=== PATIENT | female | born 1960 | race Hispanic/Latino ===

== ENCOUNTER 2018-06-24 10:36 | Inpatient (IN) | payer OTHER, SELFPAY ==
[2018-06-24] MEDS ORDERED: NACL 0.9% 1000 ML 1,000 ML IV ONE ×2 (10:51→13:10)
[2018-06-24] MEDS ORDERED: ZOFRAN IV ONE (10:51)
[2018-06-24] MEDS ORDERED: MORPHINE IV ONE (10:51)
[2018-06-24] MEDS ORDERED: TYLENOL PO ONE (10:59)
--- NOTE | 2018-06-24 11:11 | Emergency Department Report ---
HPI - General Chief Complaint: Abdominal Pain Time Seen by Provider: 06/24/18 10:51 - HPI HPI: 58-year-old female presents to the emergency department with a complaint of a one-week history of generalized abdominal pain. It has gotten progressively worse. She has a small amount of diarrhea but otherwise denies any nausea, vomiting, dysuria, vaginal bleeding or discharge. She has noticed a small amount of hematuria intermittently. She has a past medical history of kidney stones but says that this does not feel consistent with that. She has not taken anything for her symptoms prior to presentation. No recent travel or sick contacts at home. She does not have a primary care physician. She is a tobacco smoker but denies any illicit drug use. ED Past Medical Hx - Past Medical History Previous Medical History?: No - Surgical History Past Surgical History?: No - Social History Smoking Status: Current Every Day Smoker Substance Use Type: None ED Review of Systems ROS: Stated complaint: ABD PAIN/EXTREME Other details as noted in HPI Comment: All other systems reviewed and negative Constitutional: denies: chills, fever Eyes: denies: eye pain, vision change ENT: denies: ear pain, throat pain Respiratory: denies: cough, shortness of breath Cardiovascular: denies: chest pain, palpitations Gastrointestinal: abdominal pain, diarrhea. denies: vomiting Genitourinary: hematuria. denies: dysuria, discharge Musculoskeletal: denies: back pain, arthralgia Skin: denies: rash, lesions Neurological: denies: headache, weakness Physical Exam - Physical Exam Vital Signs: Vital Signs 06/24/18 06/24/18 10:41 11:00 Temperature 97.8 F Pulse Rate 140 H Respiratory 20 23 Rate Blood Pressure 145/118 O2 Sat by Pulse 97 Oximetry Physical Exam: GENERAL: The patient is well-developed well-nourished. HENT: Normocephalic. Atraumatic. Patient has moist mucous membranes. EYES: Extraocular motions are intact. Pupils equal reactive to light bilaterally. NECK: Supple. Trachea is midline. CHEST/LUNGS: Mild bronchospasm. No tachypnea or accessory muscle use. There is no respiratory distress noted. HEART/CARDIOVASCULAR: Regular. There is moderate to severe tachycardia. There is no murmur. ABDOMEN: Abdomen is soft. Generalized tenderness to palpation of the abdomen with lower greater than upper. No guarding. Patient has normal bowel sounds. There is no abdominal distention. SKIN: Skin is warm and dry. NEURO: The patient is awake, alert, and oriented. The patient is cooperative. The patient has no focal neurologic deficits. The patient has normal speech. MUSCULOSKELETAL: There is no tenderness or deformity. There is no evidence of acute injury. ED Course Vital Signs 06/24/18 06/24/18 10:41 11:00 Temperature 97.8 F Pulse Rate 140 H Respiratory 20 23 Rate Blood Pressure 145/118 O2 Sat by Pulse 97 Oximetry ED Medical Decision Making - Lab Data Result diagrams: 06/24/18 11:19 06/24/18 11:19 - Radiology Data Radiology results: report reviewed PROCEDURE: CT ABDOMEN PELVIS W CON TECHNIQUE: Computerized axial tomography of the abdomen and pelvis was performed after the IV injection of iodinated nonionic contrast. Coronal and sagittal reconstructed imaging provided. HISTORY: Abd pain COMPARISONS: None currently available. FINDINGS: Abdomen: Lung bases and images of the heart are grossly unremarkable. Liver: Decreased heterogeneous attenuation may represent hepatocellular disease, fatty infiltration, or cirrhosis. No suspicious lesion. Gallbladder: Layering density may represent stones and/or sludge. Gallbladder wall is not thickened. Common bile duct does not appear prominent on CT. Adrenals: Indeterminate nodular hyperplasia of the left adrenal identified. Right adrenal gland is unremarkable. Kidneys: In the left kidney, subcentimeter hypodensity is too small to ac curately characterize but statistically probably represents a cyst. Symmetrical cortical enhancement. No hydronephrosis. Spleen and pancreas are unremarkable. No aneurysm. No dissection. Moderate atherosclerotic disease. IVC is unremarkable. There is no periaortic or retroperitoneal adenopathy or mass. Diffuse small bowel and large bowel wall thickening with multiple air-fluid levels. Moderate distention of the proximal small bowel loops with air-fluid levels. Straightening of the mesentery identified.. Prominent mesenteric lymph nodes noted. Small pockets of free air noted. A transition point is not clearly identified. More notable pockets of free air around the sigmoid colon on series 2:143. Sigmoid diverticulosis noted. Trace free fluid in the abdomen. There may be some mild wall thickening of the stomach. Pelvis: Small to moderate amount of free fluid in the pelvis may be partially organized. No distinct rim enhancement. Small pockets of gas also noted. Uterus: Limited images are unremarkable. Bladder: Unremarkable. There is no pelvic mass or adenopathy. Inguinal regions are unremarkable. Bones: No suspicious osseous lesions on this limited examination of the skeleton. Metastatic disease better evaluated with bone scan. Degenerative changes are in the spine. IMPRESSION: * Suspect diffuse moderate to severe enterocolitis with multiple air-fluid levels. Possible small bowel obstruction or high-grade incomplete obstruction. Transition point is not clearly identified but suspected in the pelvis. * Small pockets of free air suggests perforation which could be related to the sigmoid colon which demonstrates diverticulosis/diverticulitis. * Small amount of free fluid in the abdomen. Small to moderate fluid in the pelvis particularly around the sigmoid colon may represent developing abscesses. * Fatty liver. * Gallbladder with stones and/or sludge. No CT evidence for cholecystitis. * Indeterminate nodular hyperplasia of the left adrenal gland. * Probable subcentimeter left renal cyst. * No obstructing right renal stone. - Medical Decision Making This patient presents with progressively worsening one-week history of abdominal pain. Labs show leukocytosis of 19,000. The patient has a mild low-grade fever but has moderate to severe tachycardia. She was given IV fluid resuscitation, Zofran, pain medication. CT of the abdomen and pelvis with IV contrast was done that shows concern for perforated viscus with some free air, a high-grade incomplete to complete bowel obstruction, and severe diffuse enterocolitis. The general surgeon on-call was contacted, Dr Wilcox, who is taking the patient to the operating room for an exploratory laparotomy. Patient will be admitted to the hospital by the admitting hospitalist, Dr. Braun. - Differential Diagnosis bowel obstruction, colitis, nephrolithiasis, pyelonephritis Critical Care Time: Yes Critical care time in (mins) excluding proc time.: 35 Critical care attestation.: If time is entered above; I have spent that time in minutes in the direct care of this critically ill patient, excluding procedure time. Critical care time was spent on this patient and doing her initial evaluation, multiple re- evaluations, ordering an interpretation of labs and imaging, discussion with the general surgeon. Critical Care Time: 35 minutes ED Disposition Clinical Impression: Perforated viscus Bowel obstruction Qualifiers: Intestinal obstruction type: unspecified Intestinal obstruction extent: unspecified extent Qualified Code(s): K56.609 - Unspecified intestinal obstruction, unspecified as to partial versus complete obstruction Leukocytosis Qualifiers: Leukocytosis type: unspecified Qualified Code(s): D72.829 - Elevated white blood cell count, unspecified Disposition: DC-09 OP ADMIT IP TO THIS HOSP Is pt being admited?: Yes Condition: Serious Time of Disposition: 15:25
[2018-06-24 11:31] LABS: Hematocrit 37.2 % (30.3-42.9); Mean Corpuscular HGB Conc 35 % (30-34); Mean Corpuscular Volume 89 fl (79-97); Platelet Count 457 K/mm3 (140-440); Red Cell Distribution Width 14.6 % (13.2-15.2)
[2018-06-24 11:48] LABS: Alanine Aminotransferase 31 units/L (7-56); BUN/Creatinine Ratio 30; Bilirubin,Direct 1.5 mg/dL (0-0.2); Blood Urea Nitrogen 12 mg/dL (7-17); Calcium 8.8 mg/dL (8.4-10.2); Hemolysis Index 6
[2018-06-24 11:51] LABS: INR 1.19 (0.87-1.13)
[2018-06-24 11:52] LABS: Partial Thromboplastin Time 31.8 Sec. (24.2-36.6)
[2018-06-24] MEDS ORDERED: K-DUR PO ONE (12:07)
[2018-06-24 13:18] LABS: Bacteria,Urine 1+ /HPF (Negative); Bilirubin,Urine NEG (Negative); Blood,Urine NEG (Negative); Color,Urine Yellow (Yellow)
[2018-06-24] MEDS ORDERED: ZOSYN/NS 4.5GM/100ML 4.5 GM/100 ML VIAL IV ONE ×2 (13:52→14:47)
[2018-06-24] MEDS ORDERED: FLAGYL 500 MG/100 ML 500 MG/100 ML BAG IV ONE (13:53)
--- NOTE | 2018-06-24 13:58 | Cat Scan Report ---
PROCEDURE: CT ABDOMEN PELVIS W CON TECHNIQUE: Computerized axial tomography of the abdomen and pelvis was performed after the IV injecti on of iodinated nonionic contrast. Coronal and sagittal reconstructed imaging provided. HISTORY: Abd pain COMPARISONS: None currently available. FINDINGS: Abdomen: Lung bases and images of the heart are grossly unremarkable. Liver: Decreased heterogeneous attenuation may represent hepatocellular disease, fatty infiltration, or cirrhosis. No suspicious lesion. Gallbladder: Layering density may represent stones and/or sludge. Gallbladder wall is not thickened. Common bile duct does not appear prominent on CT. Adrenals: Indeterminate nodular hyperplasia of the left adrenal identified. Right adrenal gland is un remarkable. Kidneys: In the left kidney, subcentimeter hypodensity is too small to accurately characterize but st atistically probably represents a cyst. Symmetrical cortical enhancement. No hydronephrosis. Spleen and pancreas are unremarkable. No aneurysm. No dissection. Moderate atherosclerotic disease. IVC is unremarkable. There is no periaortic or retroperitoneal adenopathy or mass. Diffuse small bowel and large bowel wall thickening with multiple air-fluid levels. Moderate distenti on of the proximal small bowel loops with air-fluid levels. Straightening of the mesentery identified .. Prominent mesenteric lymph nodes noted. Small pockets of free air noted. A transition point is not clearly identified. More notable pockets of free air around the sigmoid colon on series 2:143. Sigmoid diverticulosis not ed. Trace free fluid in the abdomen. There may be some mild wall thickening of the stomach. Pelvis: Small to moderate amount of free fluid in the pelvis may be partially organized. No distinct rim enha ncement. Small pockets of gas also noted. Uterus: Limited images are unremarkable. Bladder: Unremarkable. There is no pelvic mass or adenopathy. Inguinal regions are unremarkable. Bones: No suspicious osseous lesions on this limited examination of the skeleton. Metastatic disease better evaluated with bone scan. Degenerative changes are in the spine. IMPRESSION: * Suspect diffuse moderate to severe enterocolitis with multiple air-fluid levels. Possible small palak wel obstruction or high-grade incomplete obstruction. Transition point is not clearly identified but suspected in the pelvis. * Small pockets of free air suggests perforation which could be related to the sigmoid colon which d emonstrates diverticulosis/diverticulitis. * Small amount of free fluid in the abdomen. Small to moderate fluid in the pelvis particularly arou nd the sigmoid colon may represent developing abscesses. * Fatty liver. * Gallbladder with stones and/or sludge. No CT evidence for cholecystitis. * Indeterminate nodular hyperplasia of the left adrenal gland. * Probable subcentimeter left renal cyst. * No obstructing right renal stone. * 06/24/2018 at PT: I, Gabriel Pablo MD, discussed the findings over the phone with Dr. Lu. This document is electronically signed by Gabriel Pablo MD., Jun 24 2018 01:55:35 PM ET
--- NOTE | 2018-06-24 13:59 | History and Physical Report ---
History of Present Illness Chief complaint: My stomach hurts History of present illness: 58 YO Female with Nicotine Dependence, Severe Malnutrition present to ED for evaluation. Pt states that she has experienced pain in her abdomen over the past 1 week with progressively worsening symptoms over the same time frame. Pt states that her abdominal pain is 10/10, generalized, nonradiating, constant, worsened with movement, relieved somewhat with nonmovement. Pt denies NVD, ingestion of food/water from new or different sources, BRBPR, skin rash, or recent ill contacts. Pt transported to [facility] via private vehicle. Pt seen and evaluated in ED and found to have PSBO complicated by Bowel Perforation, SIRS, and severe malnutrition. Pt admitted to surgical floor. Surgery team consulted in ED. Pt taken to OR urgently. No prior admission for review. No medication listed for reconciliation at time of admission. Past History Past Medical History: other (malnutrition) Past Surgical History: No surgical history, Other (reviewed) Social history: single, smoking Family history: no significant family history (reviewed) Medications and Allergies Allergies Allergy/AdvReac Type Severity Reaction Status Date / Time No Known Allergies Allergy Unverified 06/24/18 10:41 Active Meds: Active Medications Sodium Chloride (Nacl 0.9% 1000 Ml) 1,000 mls @ 999 mls/hr IV BOLUS ONE Stop: 06/24/18 14:10 Last Admin: 06/24/18 13:30 Dose: 999 mls/hr Documented by: Piperacillin Sod/Tazobactam Sod (Zosyn/Ns 4.5gm/100ml) 4.5 gm in 100 mls @ 200 mls/hr IV ONCE ONE Stop: 06/24/18 14:21 Metronidazole (Flagyl 500 Mg/100 Ml) 500 mg in 100 mls @ 200 mls/hr IV ONCE ONE; Protocol Stop: 06/24/18 14:22 Review of Systems Constitutional: no weight loss, no weight gain, no fever Ears, nose, mouth and throat: no ear pain, no ear discharge, no nose pain, no nasal congestion Breasts: no change in shape, no swelling, no mass Cardiovascular: no chest pain, no orthopnea, no palpitations, no rapid/irregular heart beat, no syncope Respiratory: no cough, no cough with sputum, no excessive sputum, no hemoptysis, no shortness of breath, no dyspnea on exertion Gastrointestinal: abdominal pain, no diarrhea, no constipation, no change in bowel habits, no hematemesis, no BRBPR, no hematochezia, no loss of appetite, no early satiety Genitourinary Female: no pelvic pain, no flank pain, no menorrhagia, no dysuria Rectal: no pain, no bleeding Musculoskeletal: no neck stiffness, no neck pain, no shooting arm pain, no arm numbness/tingling, no shooting leg pain Integumentary: no rash, no pruritis, no redness, no sores, no wounds Neurological: no transient paralysis, no paralysis, no weakness, no parathesias, no numbness, no tingling Psychiatric: no anxiety, no memory loss, no change in sleep habits, no sleep disturbances, no hypersomnia, no change in appetite, no change in libido Endocrine: no cold intolerance, no heat intolerance, no polyphagia, no excessive thirst, no polyuria, no nocturia, no other Hematologic/Lymphatic: no easy bruising, no easy bleeding, no lymphedema Allergic/Immunologic: no urticaria, no allergic rhinitis, no wheezing, no persistent infections, no anaphylaxis Exam - Constitutional Vitals: Temp Pulse Resp BP Pulse Ox 100.2 F H 116 H 26 H 136/70 94 06/24/18 10:50 06/24/18 12:15 06/24/18 12:15 06/24/18 12:15 06/24/18 12:15 General appearance: Present: mild distress - EENT Eyes: Present: PERRL ENT: hearing intact, clear oral mucosa - Neck Neck: Present: supple, normal ROM - Respiratory Respiratory effort: normal Respiratory: bilateral: CTA - Cardiovascular Heart Sounds: Present: S1 & S2. Absent: rub, click - Extremities Extremities: pulses symmetrical, No edema Peripheral Pulses: within normal limits - Abdominal General gastrointestinal: Present: soft, tender, non-distended, normal bowel sounds. Absent: hepatomegaly, splenomegaly, mass Female genitourinary: Present: normal - Integumentary Integumentary: Present: clear, warm, dry - Musculoskeletal Musculoskeletal: gait normal, strength equal bilaterally - Psychiatric Psychiatric: appropriate mood/affect, intact judgment & insight - Neurologic Neurologic: CNII-XII intact, moves all extremities Results - Labs CBC & Chem 7: 06/24/18 11:19 06/24/18 19:47 Labs: Abnormal lab results 06/24/18 06/24/18 06/24/18 Range/Units 11:18 11:19 11:19 WBC 19.0 H (4.5-11.0) K/mm3 MCHC 35 H (30-34) % Plt Count 457 H (140-440) K/mm3 PT 15.9 H (12.2-14.9) Sec. INR 1.19 H (0.87-1.13) Sodium 136 L (137-145) mmol/L Potassium 2.8 L* (3.6-5.0) mmol/L Chloride 96.7 L (98-107) mmol/L Creatinine 0.4 L (0.7-1.2) mg/dL Glucose 146 H (65-100) mg/dL Total Bilirubin 1.90 H (0.1-1.2) mg/dL Direct Bilirubin 1.5 H (0-0.2) mg/dL Alkaline Phosphatase 264 H (35-129) units/L Albumin 3.0 L (3.9-5) g/dL Lipase 8 L (13-60) units/L Ur Specific [place] (1.003-1.030) 06/24/18 Range/Units 13:00 WBC (4.5-11.0) K/mm3 MCHC (30-34) % Plt Count (140-440) K/mm3 PT (12.2-14.9) Sec. INR (0.87-1.13) Sodium (137-145) mmol/L Potassium (3.6-5.0) mmol/L Chloride (98-107) mmol/L Creatinine (0.7-1.2) mg/dL Glucose (65-100) mg/dL Total Bilirubin (0.1-1.2) mg/dL Direct Bilirubin (0-0.2) mg/dL Alkaline Phosphatase (35-129) units/L Albumin (3.9-5) g/dL Lipase (13-60) units/L Ur Specific [place] > 1.059 H (1.003-1.030) Assessment and Plan dep - Patient Problems (1) SIRS (systemic inflammatory response syndrome) Current Visit: Yes Status: Acute Plan to address problem: IV antibiotic therapy, CBC, CMP, CT Abdomen/Pelvis, Chest x ray, urinalysis, (2) Nicotine dependence unspecified, with withdrawal Current Visit: Yes Status: Acute Qualifiers: Nicotine product type: cigarettes Qualified Code(s): F17.213 - Nicotine dependence, cigarettes, with withdrawal Plan to address problem: Smoking cessation counseling, supportive care. (3) Hypokalemia Current Visit: Yes Status: Acute Plan to address problem: repleted, in ED, repeat bmp. (4) Unspecified severe protein-calorie malnutrition Current Visit: Yes Status: Acute Plan to address problem: Encourage increased protein intake, supportive care, dietary supplementation (5) Bowel obstruction Current Visit: Yes Status: Acute Qualifiers: Intestinal obstruction type: other intestinal obstruction Plan to address problem: Surgery consulted in ED, CT Abdomen/Pelvis, serial abdominal exam, surgical intervention. (6) Perforated viscus Current Visit: Yes Status: Acute Plan to address problem: CT ABdomen/Pelvis, Urgent surgical intervention as per surgical team, diet as per surgical team, pain control, supportive care, (7) DVT prophylaxis Current Visit: Yes Status: Acute Plan to address problem: SCD to BLE while in bed, prophylactic heparin
[2018-06-24] MEDS ORDERED: PROVENTIL IH PRN (14:00)
[2018-06-24] MEDS ORDERED: TYLENOL PO PRN (14:00)
[2018-06-24 14:31] LABS: Band Neutrophils # (Manual) 1.5 K/mm3; Basophils % (Manual) 0 % (0.0-1.8); Eosinophils % (Manual) 0 % (0.0-4.3); Total Cells Counted 100
[2018-06-24 14:33] LABS: Platelet Estimate Consistent w Auto; RBC Morphology Normal
--- NOTE | 2018-06-24 14:44 | Anesthesia Consultation ---
Anesthesia Consult and Med Hx Date of service: 06/24/18 - Airway Anesthetic Teeth Evaluation: Poor (brittle, chipped ), Edentulous (uppers) Mallampati Class: Class III - Pulmonary Exam CTA: No (expiratory wheezing, poor air movement) - Cardiac Exam Cardiac Exam: RRR - Pre-Operative Health Status ASA Pre-Surgery Classification: ASA2 Proposed Anesthetic Plan: General - Pre-Anesthesia Comment Pre-Anesthesia Comments: Physical exam remarkable for expiratory wheezing and poor air movement b/L. needs preoperative duoneb treatment that can be given in the ED pending transfer to preop holding. - Pulmonary Hx Smoking: Yes Hx Asthma: No (although suspected pulmonary disease d/t smoking hx.) Hx Respiratory Symptoms: No (see above) SOB: No (see above) COPD: No (see above, 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 ) Home Oxygen Therapy: No Hx Pneumonia: No Hx Sleep Apnea: No - Cardiovascular System Hx Hypertension: Yes (states she is on/off BP meds; currently on none but does not have a PCP ) Hx Coronary Artery Disease: No Hx Heart Murmur: No Hx Peripheral Vascular Disease: No - Central Nervous System Hx Psychiatric Problems: No - Gastrointestinal Hx Gastroesophageal Reflux Disease: No - Hematic Hx Anemia: No - Other Systems Hx Alcohol Use: No Hx Substance Use: No (denies illicit drug use ) - Additional Comments Anesthesia Medical History Comments: 58-year-old female p/t [facility] w/ a complaint of a one-week history of generalized abdominal pain concerning for bowel perforation. Poor medical care and no routine follow-ups with primary care physician. States she has had HTN on/off BP meds but currently does not. Previous stent placement for kidney stones was uneventful.
--- NOTE | 2018-06-24 14:44 | Anesthesia Day of Surgery ---
Anesthesia Day of Surgery - Day of Surgery Patient Examined: Yes Patient H&P Reviewed: Yes (current smoker, history of kidney stones s/p stent placement) Patient is NPO: Yes Beta Blockers: No Cardiac Clearance: No Pulmonary Clearance: No Shahram's Test: N/A
--- NOTE | 2018-06-24 14:48 | Consultation ---
History of Present Illness Consult date: 06/24/18 Reason for consult: abdominal pain Chief complaint: abdominal pain - History of present illness History of present illness: 58 yo F with hx of HTN, tobacco dependence presents with 1 week of gradually wor sening abdominal pain. The pain is sharp and started in the midabdomen and is now diffuse. No alleviating or exacerbating factors. +Chills at home. Temp of 100.2 in ER. Has not been able to pass gas for the past several days and has been having very small BMs, incontinence. States her abdomen has become more distended. +Nausea, no vomiting. She has never had a colonoscopy. Past History Past Medical History: hypertension Past Surgical History: No surgical history Social history: smoking (1/2 ppd). denies: alcohol abuse, prescription drug abuse Family history: no significant family history Medications and Allergies Allergies Allergy/AdvReac Type Severity Reaction Status Date / Time No Known Allergies Allergy Unverified 06/24/18 10:41 Active Meds: Active Medications Acetaminophen (Tylenol) 650 mg PO Q4H PRN PRN Reason: Pain MILD(1-3)/Fever >100.5/LINK Albuterol (Proventil) 2.5 mg IH Q4HRT PRN PRN Reason: Shortness Of Breath Cefepime HCl (Maxipime/Ns 2 Gm/100 Ml) 2 gm in 100 mls @ 200 mls/hr IV Q8H MAURICIO; Protocol Metronidazole (Flagyl 500 Mg/100 Ml) 500 mg in 100 mls @ 100 mls/hr IV Q8H MAURICIO; Protocol Ondansetron HCl (Zofran) 4 mg IV Q8H PRN PRN Reason: Nausea And Vomiting Sodium Chloride (Sodium Chloride Flush Syringe 10 Ml) 10 ml IV BID MAURICIO Sodium Chloride (Sodium Chloride Flush Syringe 10 Ml) 10 ml IV PRN PRN PRN Reason: LINE FLUSH Review of Systems All systems: negative (10 PT ros PERFORMED and negative except for that listed in HPI) Exam Vital Signs Temp Pulse Resp BP Pulse Ox 97.8 F 140 H 20 145/118 97 06/24/18 10:41 06/24/18 10:41 06/24/18 10:41 06/24/18 10:41 06/24/18 10:41 Narrative exam: Gen: AAOx3. mild distress due to pain ENT: no scleral icterus or conjunctival pallor CV: s1, s2+. tachy resp: even and unlabored Abd: Firm, distended, diffuse TTP. + rebound. no guarding Ext: no c/c/e Results - Labs 06/24/18 11:19 06/24/18 11:19 Abnormal lab results 06/24/18 06/24/18 06/24/18 Range/Units 11:18 11:19 11:19 WBC 19.0 H (4.5-11.0) K/mm3 MCHC 35 H (30-34) % Plt Count 457 H (140-440) K/mm3 Seg Neuts % (Manual) 88.0 H (40.0-70.0) % Lymphocytes % (Manual) 2.0 L (13.4-35.0) % Seg Neutrophils # Man 16.7 H (1.8-7.7) K/mm3 Lymphocytes # (Manual) 0.4 L (1.2-5.4) K/mm3 PT 15.9 H (12.2-14.9) Sec. INR 1.19 H (0.87-1.13) Sodium 136 L (137-145) mmol/L Potassium 2.8 L* (3.6-5.0) mmol/L Chloride 96.7 L (98-107) mmol/L Creatinine 0.4 L (0.7-1.2) mg/dL Glucose 146 H (65-100) mg/dL Total Bilirubin 1.90 H (0.1-1.2) mg/dL Direct Bilirubin 1.5 H (0-0.2) mg/dL Alkaline Phosphatase 264 H (35-129) units/L Albumin 3.0 L (3.9-5) g/dL Lipase 8 L (13-60) units/L Ur Specific [place] (1.003-1.030) 06/24/18 Range/Units 13:00 WBC (4.5-11.0) K/mm3 MCHC (30-34) % Plt Count (140-440) K/mm3 Seg Neuts % (Manual) (40.0-70.0) % Lymphocytes % (Manual) (13.4-35.0) % Seg Neutrophils # Man (1.8-7.7) K/mm3 Lymphocytes # (Manual) (1.2-5.4) K/mm3 PT (12.2-14.9) Sec. INR (0.87-1.13) Sodium (137-145) mmol/L Potassium (3.6-5.0) mmol/L Chloride (98-107) mmol/L Creatinine (0.7-1.2) mg/dL Glucose (65-100) mg/dL Total Bilirubin (0.1-1.2) mg/dL Direct Bilirubin (0-0.2) mg/dL Alkaline Phosphatase (35-129) units/L Albumin (3.9-5) g/dL Lipase (13-60) units/L Ur Specific [place] > 1.059 H (1.003-1.030) Diabetes panel 06/24/18 Range/Units 11:19 Sodium 136 L (137-145) mmol/L Potassium 2.8 L* (3.6-5.0) mmol/L Chloride 96.7 L (98-107) mmol/L Carbon Dioxide 25 (22-30) mmol/L BUN 12 (7-17) mg/dL Creatinine 0.4 L (0.7-1.2) mg/dL Glucose 146 H (65-100) mg/dL Calcium 8.8 (8.4-10.2) mg/dL AST 20 (5-40) units/L ALT 31 (7-56) units/L Alkaline Phosphatase 264 H (35-129) units/L Total Protein 6.6 (6.3-8.2) g/dL Albumin 3.0 L (3.9-5) g/dL Calcium panel 06/24/18 Range/Units 11:19 Calcium 8.8 (8.4-10.2) mg/dL Albumin 3.0 L (3.9-5) g/dL Pituitary panel 06/24/18 Range/Units 11:19 Sodium 136 L (137-145) mmol/L Potassium 2.8 L* (3.6-5.0) mmol/L Chloride 96.7 L (98-107) mmol/L Carbon Dioxide 25 (22-30) mmol/L BUN 12 (7-17) mg/dL Creatinine 0.4 L (0.7-1.2) mg/dL Glucose 146 H (65-100) mg/dL Calcium 8.8 (8.4-10.2) mg/dL Adrenal panel 05/18/19 Range/Units 11:19 Sodium 136 L (137-145) mmol/L Potassium 2.8 L* (3.6-5.0) mmol/L Chloride 96.7 L (98-107) mmol/L Carbon Dioxide 25 (22-30) mmol/L BUN 12 (7-17) mg/dL Creatinine 0.4 L (0.7-1.2) mg/dL Glucose 146 H (65-100) mg/dL Calcium 8.8 (8.4-10.2) mg/dL Total Bilirubin 1.90 H (0.1-1.2) mg/dL AST 20 (5-40) units/L ALT 31 (7-56) units/L Alkaline Phosphatase 264 H (35-129) units/L Total Protein 6.6 (6.3-8.2) g/dL Albumin 3.0 L (3.9-5) g/dL - Imaging CT scan - abdomen: report reviewed, image reviewed CT scan - pelvis: report reviewed, image reviewed Assessment and Plan 58 yo F with 1. pneumoperitoneum, 2. SBO 3. perforated viscus 4. hypokalemia 5. sepsis due to #3 Plan: 1. NPO 2. IVF 3. IV abx 4. prn pain control 5. hypokalemia treated in ER Patient peritoneal, tachycardic, with leukocytosis and pneumoperitoneum on CT scan A/P. Recommend exploratory laparotomy. I discussed surgery, risks, benefits, and alternatives with the patient. All questions answered. Explained to the patient that she may have a perforation in her sigmoid colon which could require a colostomy. Family member at bedside Thank you, please call with questions.
[2018-06-24] MEDS ORDERED: DUONEB *Not for PRN Use IH ONE ×2 (15:11→15:19)
[2018-06-24] MEDS ORDERED: SUBLIMAZE IV PRN (15:23)
[2018-06-24] MEDS ORDERED: REGLAN IV PRN (15:23)
[2018-06-24] MEDS ORDERED: DILAUDID ONE (15:44)
[2018-06-24] MEDS ORDERED: XYLOCAINE CARDIAC IV ONE (15:44)
[2018-06-24] MEDS ORDERED: QUELICIN ONE (15:44)
[2018-06-24] MEDS ORDERED: ZEMURON IV ONE (15:44)
[2018-06-24] MEDS ORDERED: DIPRIVAN 10 MG/ML IV ONE (15:44)
[2018-06-24] MEDS ORDERED: VERSED ONE (15:59)
[2018-06-24] MEDS ORDERED: NACL 0.9% IR ONE ×2 (15:59)
[2018-06-24] MEDS ORDERED: MAXIPIME/NS 2 GM/100 ML 2 GM/100 ML BAG IV SCH (16:00)
[2018-06-24] MEDS ORDERED: NEO SYNEPHRINE/NS Syringe(OR USE) IV ONE (16:25)
[2018-06-24] MEDS ORDERED: ZOFRAN ONE (17:43)
[2018-06-24] MEDS ORDERED: ROBINUL ONE (17:43)
[2018-06-24] MEDS ORDERED: BLOXIVERZ ONE (17:43)
[2018-06-24] MEDS ORDERED: BRIDION IV ONE (17:56)
[2018-06-24] MEDS ORDERED: SUBLIMAZE ONE (18:27)
[2018-06-24] MEDS ORDERED: NARCAN 0.4 MG/1 ML IV PRN ×2 (18:49→18:55)
[2018-06-24] MEDS: DILAUDID IV PRN ×3 (18:55→19:24)
--- NOTE | 2018-06-24 18:55 | Post Operative Note ---
Date of procedure: 06/24/18 Pre-op diagnosis: pneumoperitoneum, perforated viscus Post-op diagnosis: other (Perforated sigmoid colon with purulent peritonitis) Findings: purulent peritonitis, sigmoid diverticulitis with perforation at distal sigmoid colon IVF: 2L LR Uo: 150cc NGT: 100cc Procedure: Exploratory laparotomy, Ezequiel's Anesthesia: GETA Surgeon: OLGA FELDMAN Elevator Repairer Helper: JIMMY DE LUNA Estimated blood loss: other (50cc) Pathology: list (sigmoid colon) Specimen disposition: to lab Condition: stable Disposition: PACU
[2018-06-24] MEDS: MORPHINE PCA 30MG/30ML IV SCH (19:34)
[2018-06-24 20:18] LABS: BUN/Creatinine Ratio 43; Blood Urea Nitrogen 13 mg/dL (7-17); Calcium 7.4 mg/dL (8.4-10.2); Hemolysis Index 2
[2018-06-24] MEDS: D5W/NS W/KCL 20MEQ 20 MEQ/1,000 ML BAG IV SCH (20:57)
[2018-06-24] MEDS: LEVAQUIN 500MG/100ML 500 MG/100 ML BAG IV SCH (20:59)
[2018-06-24] MEDS: SODIUM CHLORIDE FLUSH SYRINGE 10 ML IV SCH (21:01)
[2018-06-24] MEDS: FLAGYL 500 MG/100 ML 500 MG/100 ML BAG IV SCH (21:01)
[2018-06-25] MEDS: FLAGYL 500 MG/100 ML 500 MG/100 ML BAG IV SCH ×3 (05:48→21:58)
[2018-06-25 07:29] LABS: Hematocrit 34.5 % (30.3-42.9); Mean Corpuscular HGB Conc 35 % (30-34); Mean Corpuscular Volume 90 fl (79-97); Platelet Count 481 K/mm3 (140-440); Red Blood Count 3.85 M/mm3 (3.65-5.03); Red Cell Distribution Width 14.8 % (13.2-15.2)
[2018-06-25 07:57] LABS: Alanine Aminotransferase 21 units/L (7-56); Albumin 2.1 g/dL (3.9-5); BUN/Creatinine Ratio 40; Blood Urea Nitrogen 16 mg/dL (7-17); Calcium 7.7 mg/dL (8.4-10.2); Hemolysis Index 3
[2018-06-25] MEDS: HABITROL TD SCH ×2 (08:35→10:00)
[2018-06-25] MEDS: D5W/NS W/KCL 20MEQ 20 MEQ/1,000 ML BAG IV SCH ×2 (08:37→16:01)
[2018-06-25 11:15] LABS: Band Neutrophils # (Manual) 0.9 K/mm3; Basophils % (Manual) 0 % (0.0-1.8); Eosinophils % (Manual) 0 % (0.0-4.3); Total Cells Counted 100
[2018-06-25 11:17] LABS: Platelet Estimate Consistent w Auto
[2018-06-25 11:18] LABS: Target Cells 3+
[2018-06-25] MEDS: KCL 10MEQ/100ML 10 MEQ/100 ML BAG IV SCH (12:15)
[2018-06-25] MEDS: SODIUM CHLORIDE FLUSH SYRINGE 10 ML IV SCH ×2 (12:16→21:58)
[2018-06-25] MEDS ORDERED: CHLORASEPTIC MM PRN (13:51)
[2018-06-25] MEDS ORDERED: MAGNESIUM SULFATE 1 GM in NACL 0.9% 50 ML IV ONE (14:00)
[2018-06-25] MEDS ORDERED: KCL 40 MEQ in NACL 0.45% 500 ML IV SCH (14:00)
[2018-06-25] MEDS ORDERED: MAGNESIUM SULFATE 1 GM in WATER FOR INJ (PF) 23 ML IV ONE (14:00)
--- NOTE | 2018-06-25 14:00 | Progress Note ---
Assessment and Plan 58 yo F s/p exploratory laparotomy, peritoneal lavage, landon's procedure POD 1 Plan: 1. NPO 2. IVF 3. replace K 4. OOB/ambulate 5. IS 6. DVT/GI ppx 7. SENIOR EXAMINER for pain management 8. [place] drain 9. void trial - pizano removed this am 10. await bowel function Thank you, please call with questions. Subjective Date of service: 06/25/18 Narrative: Pt seen and examined. No acute complaints. Pain is well controlled and patient states she feels much better. No f/c. No cp, sob. c/o pain in her throat. Objective Vital Signs - 12hr 06/25/18 06/25/18 06/25/18 02:59 04:13 07:34 Temperature 98.5 F Pulse Rate 107 H Respiratory 20 20 18 Rate Respiratory Rate [Abdomen] Blood Pressure 127/64 Blood Pressure [Left] O2 Sat by Pulse 93 Oximetry 06/25/18 06/25/18 06/25/18 07:47 09:23 09:34 Temperature 98.9 F Pulse Rate 101 H Respiratory 16 17 Rate Respiratory 17 Rate [Abdomen] Blood Pressure Blood Pressure 134/72 [Left] O2 Sat by Pulse 95 96 Oximetry 06/25/18 06/25/18 06/25/18 12:25 12:31 12:38 Temperature 98.8 F Pulse Rate 77 114 H Respiratory 15 20 Rate Respiratory Rate [Abdomen] Blood Pressure 110/68 Blood Pressure 140/73 [Left] O2 Sat by Pulse 93 100 95 Oximetry - General physical appearance Narrative Exam: Gen: AAOx3. NAD ENT: NGT with dark brown output CV: S1, s2+ resp; even and unlabored. 500cc on IS Abd: soft, mildly distended, NT. Dressing c/d/i. [place] drain serous. Ostomy pink with serous fluid in bag. No air or stool Ext: no c/c/e - Labs 06/25/18 06:55 06/25/18 06:55 Diabetes panel 06/24/18 06/25/18 Range/Units 19:47 06:55 Sodium 139 144 (137-145) mmol/L Potassium 3.5 L D 3.5 L (3.6-5.0) mmol/L Chloride 105.4 108.3 H (98-107) mmol/L Carbon Dioxide 21 L 23 (22-30) mmol/L BUN 13 16 (7-17) mg/dL Creatinine 0.3 L 0.4 L (0.7-1.2) mg/dL Glucose 166 H 159 H (65-100) mg/dL Calcium 7.4 L D 7.7 L (8.4-10.2) mg/dL AST 16 (5-40) units/L ALT 21 (7-56) units/L Alkaline Phosphatase 152 H (35-129) units/L Total Protein 5.3 L (6.3-8.2) g/dL Albumin 2.1 L (3.9-5) g/dL Calcium panel 06/24/18 06/25/18 Range/Units 19:47 06:55 Calcium 7.4 L D 7.7 L (8.4-10.2) mg/dL Albumin 2.1 L (3.9-5) g/dL Pituitary panel 06/24/18 06/25/18 Range/Units 19:47 06:55 Sodium 139 144 (137-145) mmol/L Potassium 3.5 L D 3.5 L (3.6-5.0) mmol/L Chloride 105.4 108.3 H (98-107) mmol/L Carbon Dioxide 21 L 23 (22-30) mmol/L BUN 13 16 (7-17) mg/dL Creatinine 0.3 L 0.4 L (0.7-1.2) mg/dL Glucose 166 H 159 H (65-100) mg/dL Calcium 7.4 L D 7.7 L (8.4-10.2) mg/dL Adrenal panel 06/24/18 06/25/18 Range/Units 19:47 06:55 Sodium 139 144 (137-145) mmol/L Potassium 3.5 L D 3.5 L (3.6-5.0) mmol/L Chloride 105.4 108.3 H (98-107) mmol/L Carbon Dioxide 21 L 23 (22-30) mmol/L BUN 13 16 (7-17) mg/dL Creatinine 0.3 L 0.4 L (0.7-1.2) mg/dL Glucose 166 H 159 H (65-100) mg/dL Calcium 7.4 L D 7.7 L (8.4-10.2) mg/dL Total Bilirubin 0.90 (0.1-1.2) mg/dL AST 16 (5-40) units/L ALT 21 (7-56) units/L Alkaline Phosphatase 152 H (35-129) units/L Total Protein 5.3 L (6.3-8.2) g/dL Albumin 2.1 L (3.9-5) g/dL
--- NOTE | 2018-06-25 14:16 | Progress Note ---
Assessment and Plan Assessment and plan: 58 year old woman who presented to the hospital with generalized abdominal pain. Past medical history includes tobacco abuse, current everyday smoker CT abdomen pelvis showed [id number] enterocolitis with multiple air fluid levels. High grade incomplete small bowel obstruction, pockets of free air which suggested perforation Diagnosis Severe enterocolitis Purulent peritonitis Sigmoid diverticulitis with perforation of distal sigmoid colon hypokalemia, severe hyponatremia Moderate malnutrition Nicotine dependence Sepsis Plan Status post ex lap, peritoneal lavage, Posey's procedure on 06/24 Electrolytes have been replaced patient was counseled on preventive health Management for over 17 minutes DVT prophylaxis lovenox History Interval history: Review of systems Constitutional: No fevers, no malaise, no joint pains CVS: No chest pain, no orthopnea, no pedal edema GI: No abdominal pain, no diarrhea, no vomiting, no constipation Respiratory: No shortness of breath, no wheezing, no coughing Hospitalist Physical - Physical exam Narrative exam: General.: Appears well, no distress, nontoxic HEENT: Moist mucous membranes, extraocular muscles intact, no lymphadenopathy Neck: supple Cardiac: S1-S2 heard Lungs: clear to auscultation bilaterally Abdomen: soft , nontender, Extremities: no edema clubbing or cyanosis Skin: no rash or lesions Neurologic: no gross focal deficits Psych: calm, and cooperative - Constitutional Vitals: Temp Pulse Resp BP Pulse Ox 98.8 F 114 H 20 140/73 95 06/25/18 12:38 06/25/18 12:38 06/25/18 12:38 06/25/18 12:38 06/25/18 12:38 General appearance: Present: mild distress Results - Labs CBC & Chem 7: 06/25/18 06:55 06/25/18 06:55 Labs: Laboratory Last Values WBC 18.3 K/mm3 (4.5-11.0) H 06/25/18 06:55 RBC 3.85 M/mm3 (3.65-5.03) 06/25/18 06:55 Hgb 12.0 gm/dl (10.1-14.3) 06/25/18 06:55 Hct 34.5 % (30.3-42.9) 06/25/18 06:55 MCV 90 fl (79-97) 06/25/18 06:55 MCH 31 pg (28-32) 06/25/18 06:55 MCHC 35 % (30-34) H 06/25/18 06:55 RDW 14.8 % (13.2-15.2) 06/25/18 06:55 Plt Count 481 K/mm3 (140-440) H 06/25/18 06:55 Add Manual Diff Complete 06/25/18 06:55 Total Counted 100 06/25/18 06:55 Seg Neutrophils % Mill Worker 06/25/18 06:55 Seg Neuts % (Manual) 88.0 % (40.0-70.0) H 06/25/18 06:55 5.0 % 06/25/18 06:55 4.0 % (13.4-35.0) L 06/25/18 06:55 Reactive Lymphs % (Man) 0 % 06/25/18 06:55 3.0 % (0.0-7.3) 06/25/18 06:55 0 % (0.0-4.3) 06/25/18 06:55 0 % (0.0-1.8) 06/25/18 06:55 0 % 06/25/18 06:55 0 % 06/25/18 06:55 0 % 06/25/18 06:55 0 % 06/25/18 06:55 Nucleated RBC % Not Reportable 06/25/18 06:55 Seg Neutrophils # Man 16.1 K/mm3 (1.8-7.7) H 06/25/18 06:55 Band Neutrophils # 0.9 K/mm3 06/25/18 06:55 0.7 K/mm3 (1.2-5.4) L 06/25/18 06:55 Abs React Lymphs (Man) 0.0 K/mm3 06/25/18 06:55 0.5 K/mm3 (0.0-0.8) 06/25/18 06:55 0.0 K/mm3 (0.0-0.4) 06/25/18 06:55 0.0 K/mm3 (0.0-0.1) 06/25/18 06:55 0.0 K/mm3 06/25/18 06:55 0.0 K/mm3 06/25/18 06:55 0.0 K/mm3 06/25/18 06:55 Blast Cells # 0.0 K/mm3 06/25/18 06:55 WBC Morphology Not Reportable 06/25/18 06:55 Hypersegmented Neuts Not Reportable 06/25/18 06:55 Hyposegmented Neuts Not Reportable 06/25/18 06:55 Hypogranular Neuts Not Reportable 06/25/18 06:55 Not Reportable 06/25/18 06:55 Not Reportable 06/25/18 06:55 Not Reportable 06/25/18 06:55 Not Reportable 06/25/18 06:55 Not Reportable 06/25/18 06:55 Not Reportable 06/25/18 06:55 Consistent w auto 06/25/18 06:55 Not Reportable 06/25/18 06:55 Plt Clumps, EDTA Not Reportable 06/25/18 06:55 Not Reportable 06/25/18 06:55 Not Reportable 06/25/18 06:55 Not Reportable 06/25/18 06:55 Plt Morphology Comment Not Reportable 06/25/18 06:55 RBC Morphology Not Reportable 06/25/18 06:55 Dimorphic RBCs Not Reportable 06/25/18 06:55 Not Reportable 06/25/18 06:55 Not Reportable 06/25/18 06:55 Not Reportable 06/25/18 06:55 Not Reportable 06/25/18 06:55 Not Reportable 06/25/18 06:55 Not Reportable 06/25/18 06:55 Not Reportable 06/25/18 06:55 Not Reportable 06/25/18 06:55 Not Reportable 06/25/18 06:55 3+ 06/25/18 06:55 Not Reportable 06/25/18 06:55 Not Reportable 06/25/18 06:55 Not Reportable 06/25/18 06:55 Not Reportable 06/25/18 06:55 Not Reportable 06/25/18 06:55 Not Reportable 06/25/18 06:55 Not Reportable 06/25/18 06:55 Not Reportable 06/25/18 06:55 Not Reportable 06/25/18 06:55 Acanthocytes (Spur) Not Reportable 06/25/18 06:55 Rouleaux Not Reportable 06/25/18 06:55 Not Reportable 06/25/18 06:55 Not Reportable 06/25/18 06:55 Not Reportable 06/25/18 06:55 Not Reportable 06/25/18 06:55 Hem Pathologist Commnt No 06/25/18 06:55 PT 15.9 Sec. (12.2-14.9) H 06/24/18 11:18 INR 1.19 (0.87-1.13) H 06/24/18 11:18 APTT 31.8 Sec. (24.2-36.6) 06/24/18 11:18 Sodium 144 mmol/L (137-145) 06/25/18 06:55 Potassium 3.5 mmol/L (3.6-5.0) L 06/25/18 06:55 Chloride 108.3 mmol/L (98-107) H 06/25/18 06:55 Carbon Dioxide 23 mmol/L (22-30) 06/25/18 06:55 16 mmol/L 06/25/18 06:55 BUN 16 mg/dL (7-17) 06/25/18 06:55 0.4 mg/dL (0.7-1.2) L 06/25/18 06:55 Estimated GFR > 60 ml/min 06/25/18 06:55 40 % 06/25/18 06:55 Glucose 159 mg/dL (65-100) H 06/25/18 06:55 Calcium 7.7 mg/dL (8.4-10.2) L 06/25/18 06:55 0.90 mg/dL (0.1-1.2) 06/25/18 06:55 1.5 mg/dL (0-0.2) H 06/24/18 11:19 0.4 mg/dL 06/24/18 11:19 AST 16 units/L (5-40) 06/25/18 06:55 ALT 21 units/L (7-56) 06/25/18 06:55 152 units/L (35-129) H 06/25/18 06:55 5.3 g/dL (6.3-8.2) L 06/25/18 06:55 2.1 g/dL (3.9-5) L 06/25/18 06:55 0.7 % 06/25/18 06:55 8 units/L (13-60) L 06/24/18 11:19 Yellow (Yellow) 06/24/18 13:00 Clear (Clear) 06/24/18 13:00 6.0 (5.0-7.0) 06/24/18 13:00 Ur Specific [place] > 1.059 (1.003-1.030) H 06/24/18 13:00 30 mg/dl mg/dL (Negative) 06/24/18 13:00 Neg mg/dL (Negative) 06/24/18 13:00 Neg mg/dL (Negative) 06/24/18 13:00 Neg (Negative) 06/24/18 13:00 Neg (Negative) 06/24/18 13:00 Neg (Negative) 06/24/18 13:00 4.0 mg/dL (<2.0) 06/24/18 13:00 Ur Leukocyte Esterase Neg (Negative) 06/24/18 13:00 2.0 /HPF (0.0-6.0) 06/24/18 13:00 2.0 /HPF (0.0-6.0) 06/24/18 13:00 U Epithel Cells (Auto) 1.0 /HPF (0-13.0) 06/24/18 13:00 1+ /HPF (Negative) 06/24/18 13:00 Active Medications - Current Medications Current Medications: Generic Name Dose Route Start Last Admin Trade Name Freq PRN Reason Stop Dose Admin Acetaminophen 650 mg 06/24/18 14:00 Tylenol PO Q4H PRN Pain MILD(1-3)/Fever >100.5/LINK Albuterol 2.5 mg 06/24/18 14:00 Proventil IH Q4HRT PRN Shortness Of Breath Fentanyl 50 mcg 06/24/18 15:23 Sublimaze IV Q5MIN PRN Pain , Severe (7-10) Heparin Sodium (Porcine) 5,000 unit 06/26/18 10:00 Heparin SUB-Q Q12HR MAURICIO Hydromorphone HCl 0.5 mg 06/24/18 15:23 06/24/18 19:24 Dilaudid IV 06/25/18 15:22 0.5 mg Q10MIN PRN Administration Pain , Severe (7-10) Metronidazole 500 mg in 100 mls @ 100 mls/hr 06/24/18 22:00 06/25/18 05:48 Flagyl 500 Mg/100 Ml IV 100 mls/hr Q8H MAURICIO Administration Protocol Potassium Chloride/Dextrose/Sod Cl 20 meq in 1,000 mls @ 125 mls/hr 06/24/18 19:00 06/25/18 08:37 D5w/Ns W/Kcl 20meq IV 125 mls/hr DIRECT MAURICIO Administration Levofloxacin/Dextrose 500 mg in 100 mls @ 100 mls/hr 06/24/18 20:00 06/24/18 20:59 Levaquin 500mg/100ml IV 100 mls/hr Q24H MAURICIO Administration Protocol Potassium Chloride 40 meq/ 520 mls @ 125 mls/hr 06/25/18 14:00 Sodium Chloride IV 06/25/18 18:10 DIRECT MAURICIO Magnesium Sulfate 1 gm/ Sodium 52 mls @ 52 mls/hr 06/25/18 14:00 Chloride IV 06/25/18 14:59 ONCE ONE Morphine Sulfate 0 mg 06/24/18 19:00 06/24/18 19:34 Morphine Waste Management Recycling Technician 30mg/30ml IV 1 cartstart DIRECT MAURICIO Administration Protocol Naloxone HCl 0.1 mg 06/24/18 18:55 Narcan 0.4 Mg/1 Ml IV Q2MIN PRN Res Rate </= 8 or 02 SAT < 92% Nicotine 14 mg 06/25/18 10:00 06/25/18 10:00 Habitrol TD Not Given QDAY MAURICIO Ondansetron HCl 4 mg 06/24/18 14:00 Zofran IV Q8H PRN Nausea And Vomiting Pantoprazole Sodium 40 mg 06/26/18 10:00 Protonix IV QDAY MAURICIO Phenol 1 spray 06/25/18 13:51 Chloraseptic MM PRN PRN Sore Throat Sodium Chloride 10 ml 06/24/18 22:00 06/25/18 12:16 Sodium Chloride Flush Syringe 10 Ml IV 10 ml BID MAURICIO Administration Sodium Chloride 10 ml 06/24/18 14:00 Sodium Chloride Flush Syringe 10 Ml IV PRN PRN LINE FLUSH
--- NOTE | 2018-06-25 15:19 | Operative Report ---
PREOPERATIVE DIAGNOSES: Pneumoperitoneum, perforated viscus. POSTOPERATIVE DIAGNOSIS: Perforated sigmoid diverticulitis. PROCEDURES: Exploratory laparotomy, peritoneal lavage, and Ezequiel procedure. SURGEON: Mary Wilcox DO MANAGEMENT PSYCHOLOGIST: Jac Holder MD ANESTHESIA: General endotracheal anesthesia. FINDINGS: Perforation of the distal sigmoid colon at the rectosigmoid junction with diverticulitis involving approximately 12 cm of sigmoid colon, purulent peritonitis. IV FLUIDS: LR 2 liters. URINE OUTPUT: 150 mL NG TUBE OUTPUT: 100 mL ESTIMATED BLOOD LOSS: 50 mL PATHOLOGY: Sigmoid colon. SPECIMEN DISPOSITION: To lab. CONDITION: Stable. DISPOSITION: To PACU. HISTORY OF PRESENT ILLNESS AND INDICATION: The patient is a 58-year-old female who presented to the Emergency Room with 1 week of abdominal pain that started off localized in the midabdomen and then became diffuse. The patient was tachycardic on presentation, had a leukocytosis on labs, and CT scan of the abdomen and pelvis showed pneumoperitoneum with possible perforation of the sigmoid colon. On physical exam, the patient was peritoneal and an exploratory laparotomy was recommended emergently. All risks, benefits, and alternatives to surgery were discussed with the patient. Questions answered. Consent was obtained for exploratory laparotomy, possible bowel resection, possible ostomy. PROCEDURE IN DETAIL: The patient was identified in the preoperative area and taken back to the operating room and placed on the operating table in supine position. After anesthesia was induced, a Sharif catheter was sterilely placed by circulating nurse. The abdomen was then prepped and draped in the usual sterile fashion. Time-out was performed. A midline incision was made using a #10 blade and then dissection was carried down through the skin and subcutaneous tissue using Bovie electrocautery until the fascia was encountered in the epigastric area. The fascia was scored and carefully incised until the peritoneum was seen. The peritoneum was entered bluntly with a gloved finger and then the incision was completed in the cephalad and caudad direction over 2 gloved fingers using electrocautery. There was immediate visualization of distended small bowel. The small bowel did have some loose adhesions and fibrinous exudative material coating part of it. The small bowel was carefully freed of these adhesions, which were taken down bluntly and then small bowel was eviscerated. There was purulent fluid in all 4 quadrants on exploration. Once all small bowel was eviscerated, the colon was examined. There was stool drainage from an area of the distal sigmoid colon at the rectosigmoid junction. This was where the perforation was. Extending proximally from this area by approximately 12 cm, the sigmoid colon was thickened and inflamed with numerous diverticulum. It was therefore decided to perform a Ezequiel procedure. The sigmoid colon was redundant and did have some chronic scarring to the retroperitoneum. The sigmoid colon was carefully mobilized using a combination of blunt dissection and electrocautery. Great care was taken to protect the surrounding structures to prevent injury. Once the sigmoid colon was mobilized, a window was created in the mesentery at the distal transection point distal to the perforation. This was done using blunt dissection with a finger and a contoured stapler blue load was used to transect the distal sigmoid colon. Proximal transection point was also chosen at a healthy portion of sigmoid colon proximal to the inflammation. A window was made in the mesentery using electrocautery and the colon was transected using a CORBY-75 mm blue load stapler. The mesentery of the specimen was ligated using an EnSeal. This specimen was tagged at the distal aspect with a silk suture and passed off the table as a specimen. The remainder of the colon appeared unremarkable. An NG tube was placed by anesthesia, which was palpated and in the body of the stomach. The abdomen was then irrigated copiously with warm saline and checked for hemostasis and all purulent material was evacuated. At this point, it was decided to create an end colostomy. The 2-0 Prolene sutures were placed on the rectal stump in each corner in order to later identify the stump. A quarter size incision was made in the left lower quadrant below the belt line using cautery and then dissection was carried down through the fascia where a cruciate incision was made. The rectus muscle split in the direction of its fibers and the peritoneum was incised. The opening was dilated using two gloved fingers and the proximal colon was brought out through this incision. The mesentery was inspected and there was no twisting. There was no tension either. The abdomen was once again checked for hemostasis and for any foreign objects. A 19-Citizen Of [place] Saran drain was inserted into the abdomen via stab incision in the right lower quadrant and positioned in the pelvis. It was sutured into place using a 3-0 nylon drain stitch. The bulb was attached and it was assembled in the usual fashion. The fascia was then closed with running PDS looped suture in a running fashion. One piece of Seprafilm was placed over the omentum. Once the abdomen was closed, the subcutaneous tissue was irrigated and packed with a saline moistened Kerlix. It was then time to mature the ostomy. The staple line was cut off and inside of the colon was inspected. There was bleeding from the edges and the mucosa appeared pink and healthy. We first fixed the colon to the fascia in all 4 quadrants using 2-0 Vicryl seromuscular stitches from the colon to the fascia. Then, the ostomy was matured in a Lizabeth fashion using 2-0 Vicryl interrupted sutures. The patency of the ostomy was checked by inserting gloved finger and the ostomy was patent. The skin was cleansed, and an ostomy appliance was cut to size and applied in the usual fashion. The incision was covered with 4 x 4 gauze, ABD pads, and Medipore tape. At the end of the case, all sponge, instrument, sharp counts were correct x 2. The patient was awoken from anesthesia, extubated, and taken to PACU in stable condition. JOB# [id number] ANOOP/ROSIE MCDONNELL
[2018-06-25] MEDS: MORPHINE PCA 30MG/30ML IV SCH (20:29)
[2018-06-25] MEDS: LEVAQUIN 500MG/100ML 500 MG/100 ML BAG IV SCH (21:57)
[2018-06-25] MEDS: LOVENOX SUB-Q SCH (21:58)
[2018-06-26] MEDS: KCL 10MEQ/100ML 10 MEQ/100 ML BAG IV SCH ×3 (00:18→01:56)
[2018-06-26] MEDS: FLAGYL 500 MG/100 ML 500 MG/100 ML BAG IV SCH ×3 (05:29→22:51)
--- NOTE | 2018-06-26 07:58 | Progress Note ---
Assessment and Plan Assessment and plan: 58 year old woman who presented to the hospital with generalized abdominal pain. Past medical history includes tobacco abuse, current everyday smoker CT abdomen pelvis showed [id number] enterocolitis with multiple air fluid levels. High grade incomplete small bowel obstruction, pockets of free air which suggested perforation Diagnosis Severe enterocolitis Purulent peritonitis Sigmoid diverticulitis with perforation of distal sigmoid colon hypokalemia, severe hyponatremia Moderate malnutrition Nicotine dependence Sepsis acute hypoxic respiratory failure Plan Status post ex lap, peritoneal lavage, Posey's procedure on 06/24 Electrolytes have been replaced patient was counseled on preventive health Management for over 17 minutes abx per ID obtain cxr, lasix, oxygen supplement, breathing rx as needed DVT prophylaxis lovenox History Interval history: Review of systems Constitutional: No fevers, no malaise, no joint pains CVS: No chest pain, no orthopnea, no pedal edema GI: No abdominal pain, no diarrhea, no vomiting, no constipation Respiratory: c/o shortness of breath, no wheezing, no coughing Hospitalist Physical - Physical exam Narrative exam: General.: Appears well, no distress, nontoxic HEENT: Moist mucous membranes, extraocular muscles intact, no lymphadenopathy Neck: supple Cardiac: S1-S2 heard Lungs: rhonchi and crackles in bases Abdomen: soft , nontender, Extremities: no edema clubbing or cyanosis Skin: no rash or lesions Neurologic: no gross focal deficits Psych: calm, and cooperative - Constitutional Vitals: Temp Pulse Resp BP Pulse Ox 97.9 F 120 H 16 144/74 83 L 06/26/18 07:50 06/26/18 07:50 06/26/18 07:50 06/26/18 07:50 06/26/18 07:50 General appearance: Present: mild distress Results - Labs CBC & Chem 7: 06/26/18 11:54 06/26/18 11:54 Labs: Laboratory Last Values WBC 18.3 K/mm3 (4.5-11.0) H 06/25/18 06:55 RBC 3.85 M/mm3 (3.65-5.03) 06/25/18 06:55 Hgb 12.0 gm/dl (10.1-14.3) 06/25/18 06:55 Hct 34.5 % (30.3-42.9) 06/25/18 06:55 MCV 90 fl (79-97) 06/25/18 06:55 MCH 31 pg (28-32) 06/25/18 06:55 MCHC 35 % (30-34) H 06/25/18 06:55 RDW 14.8 % (13.2-15.2) 06/25/18 06:55 Plt Count 481 K/mm3 (140-440) H 06/25/18 06:55 Add Manual Diff Complete 06/25/18 06:55 Total Counted 100 06/25/18 06:55 Seg Neutrophils % Compliance Field Technician 06/25/18 06:55 Seg Neuts % (Manual) 88.0 % (40.0-70.0) H 06/25/18 06:55 5.0 % 06/25/18 06:55 4.0 % (13.4-35.0) L 06/25/18 06:55 Reactive Lymphs % (Man) 0 % 06/25/18 06:55 3.0 % (0.0-7.3) 06/25/18 06:55 0 % (0.0-4.3) 06/25/18 06:55 0 % (0.0-1.8) 06/25/18 06:55 0 % 06/25/18 06:55 0 % 06/25/18 06:55 0 % 06/25/18 06:55 0 % 06/25/18 06:55 Nucleated RBC % Not Reportable 06/25/18 06:55 Seg Neutrophils # Man 16.1 K/mm3 (1.8-7.7) H 06/25/18 06:55 Band Neutrophils # 0.9 K/mm3 06/25/18 06:55 0.7 K/mm3 (1.2-5.4) L 06/25/18 06:55 Abs React Lymphs (Man) 0.0 K/mm3 06/25/18 06:55 0.5 K/mm3 (0.0-0.8) 06/25/18 06:55 0.0 K/mm3 (0.0-0.4) 06/25/18 06:55 0.0 K/mm3 (0.0-0.1) 06/25/18 06:55 0.0 K/mm3 06/25/18 06:55 0.0 K/mm3 06/25/18 06:55 0.0 K/mm3 06/25/18 06:55 Blast Cells # 0.0 K/mm3 06/25/18 06:55 WBC Morphology Not Reportable 06/25/18 06:55 Hypersegmented Neuts Not Reportable 06/25/18 06:55 Hyposegmented Neuts Not Reportable 06/25/18 06:55 Hypogranular Neuts Not Reportable 06/25/18 06:55 Not Reportable 06/25/18 06:55 Not Reportable 06/25/18 06:55 Not Reportable 06/25/18 06:55 Not Reportable 06/25/18 06:55 Not Reportable 06/25/18 06:55 Not Reportable 06/25/18 06:55 Consistent w auto 06/25/18 06:55 Not Reportable 06/25/18 06:55 Plt Clumps, EDTA Not Reportable 06/25/18 06:55 Not Reportable 06/25/18 06:55 Not Reportable 06/25/18 06:55 Not Reportable 06/25/18 06:55 Plt Morphology Comment Not Reportable 06/25/18 06:55 RBC Morphology Not Reportable 06/25/18 06:55 Dimorphic RBCs Not Reportable 06/25/18 06:55 Not Reportable 06/25/18 06:55 Not Reportable 06/25/18 06:55 Not Reportable 06/25/18 06:55 Not Reportable 06/25/18 06:55 Not Reportable 06/25/18 06:55 Not Reportable 06/25/18 06:55 Not Reportable 06/25/18 06:55 Not Reportable 06/25/18 06:55 Not Reportable 06/25/18 06:55 3+ 06/25/18 06:55 Not Reportable 06/25/18 06:55 Not Reportable 06/25/18 06:55 Not Reportable 06/25/18 06:55 Not Reportable 06/25/18 06:55 Not Reportable 06/25/18 06:55 Not Reportable 06/25/18 06:55 Not Reportable 06/25/18 06:55 Not Reportable 06/25/18 06:55 Not Reportable 06/25/18 06:55 Acanthocytes (Spur) Not Reportable 06/25/18 06:55 Rouleaux Not Reportable 06/25/18 06:55 Not Reportable 06/25/18 06:55 Not Reportable 06/25/18 06:55 Not Reportable 06/25/18 06:55 Not Reportable 06/25/18 06:55 Hem Pathologist Commnt No 06/25/18 06:55 PT 15.9 Sec. (12.2-14.9) H 06/24/18 11:18 INR 1.19 (0.87-1.13) H 06/24/18 11:18 APTT 31.8 Sec. (24.2-36.6) 06/24/18 11:18 Sodium 144 mmol/L (137-145) 06/25/18 06:55 Potassium 3.5 mmol/L (3.6-5.0) L 06/25/18 06:55 Chloride 108.3 mmol/L (98-107) H 06/25/18 06:55 Carbon Dioxide 23 mmol/L (22-30) 06/25/18 06:55 16 mmol/L 06/25/18 06:55 BUN 16 mg/dL (7-17) 06/25/18 06:55 0.4 mg/dL (0.7-1.2) L 06/25/18 06:55 Estimated GFR > 60 ml/min 06/25/18 06:55 40 % 06/25/18 06:55 Glucose 159 mg/dL (65-100) H 06/25/18 06:55 Calcium 7.7 mg/dL (8.4-10.2) L 06/25/18 06:55 0.90 mg/dL (0.1-1.2) 06/25/18 06:55 1.5 mg/dL (0-0.2) H 06/24/18 11:19 0.4 mg/dL 06/24/18 11:19 AST 16 units/L (5-40) 06/25/18 06:55 ALT 21 units/L (7-56) 06/25/18 06:55 152 units/L (35-129) H 06/25/18 06:55 5.3 g/dL (6.3-8.2) L 06/25/18 06:55 2.1 g/dL (3.9-5) L 06/25/18 06:55 0.7 % 06/25/18 06:55 8 units/L (13-60) L 06/24/18 11:19 Yellow (Yellow) 06/24/18 13:00 Clear (Clear) 06/24/18 13:00 6.0 (5.0-7.0) 06/24/18 13:00 Ur Specific [place] > 1.059 (1.003-1.030) H 06/24/18 13:00 30 mg/dl mg/dL (Negative) 06/24/18 13:00 Neg mg/dL (Negative) 06/24/18 13:00 Neg mg/dL (Negative) 06/24/18 13:00 Neg (Negative) 06/24/18 13:00 Neg (Negative) 06/24/18 13:00 Neg (Negative) 06/24/18 13:00 4.0 mg/dL (<2.0) 06/24/18 13:00 Ur Leukocyte Esterase Neg (Negative) 06/24/18 13:00 2.0 /HPF (0.0-6.0) 06/24/18 13:00 2.0 /HPF (0.0-6.0) 06/24/18 13:00 U Epithel Cells (Auto) 1.0 /HPF (0-13.0) 06/24/18 13:00 1+ /HPF (Negative) 06/24/18 13:00 Active Medications - Current Medications Current Medications: Generic Name Dose Route Start Last Admin Trade Name Freq PRN Reason Stop Dose Admin Acetaminophen 650 mg 06/24/18 14:00 Tylenol PO Q4H PRN Pain MILD(1-3)/Fever >100.5/LINK Albuterol 2.5 mg 06/24/18 14:00 Proventil IH Q4HRT PRN Shortness Of Breath Enoxaparin Sodium 40 mg 06/25/18 22:00 06/25/18 21:58 Lovenox SUB-Q 40 mg QDAY@2200 MAURICIO Administration Fentanyl 50 mcg 06/24/18 15:23 Sublimaze IV Q5MIN PRN Pain , Severe (7-10) Metronidazole 500 mg in 100 mls @ 100 mls/hr 06/24/18 22:00 06/26/18 05:29 Flagyl 500 Mg/100 Ml IV 100 mls/hr Q8H MAURICIO Administration Protocol Potassium Chloride/Dextrose/Sod Cl 20 meq in 1,000 mls @ 125 mls/hr 06/24/18 19:00 06/25/18 16:01 D5w/Ns W/Kcl 20meq IV 125 mls/hr DIRECT MAURICIO Administration Levofloxacin/Dextrose 500 mg in 100 mls @ 100 mls/hr 06/24/18 20:00 06/25/18 21:57 Levaquin 500mg/100ml IV 100 mls/hr Q24H MAURICIO Administration Protocol Morphine Sulfate 0 mg 06/24/18 19:00 06/25/18 20:29 Morphine Profile Trimmer 30mg/30ml IV 1 cartstart DIRECT MAURICIO Administration Protocol Naloxone HCl 0.1 mg 06/24/18 18:55 Narcan 0.4 Mg/1 Ml IV Q2MIN PRN Res Rate </= 8 or 02 SAT < 92% Nicotine 14 mg 06/25/18 10:00 06/25/18 10:00 Habitrol TD Not Given QDAY MAURICIO Ondansetron HCl 4 mg 06/24/18 14:00 Zofran IV Q8H PRN Nausea And Vomiting Pantoprazole Sodium 40 mg 06/26/18 10:00 Protonix IV QDAY MAURICIO Phenol 1 spray 06/25/18 13:51 Chloraseptic MM PRN PRN Sore Throat Sodium Chloride 10 ml 06/24/18 22:00 06/25/18 21:58 Sodium Chloride Flush Syringe 10 Ml IV 10 ml BID MAURICIO Administration Sodium Chloride 10 ml 06/24/18 14:00 Sodium Chloride Flush Syringe 10 Ml IV PRN PRN LINE FLUSH
[2018-06-26] MEDS ORDERED: HEPARIN SUB-Q SCH (10:00)
[2018-06-26] MEDS: HABITROL TD SCH (10:38)
[2018-06-26] MEDS: PROTONIX IV SCH (10:38)
--- NOTE | 2018-06-26 11:21 | Progress Note ---
Assessment and Plan 58 yo F s/p exploratory laparotomy, peritoneal lavage, landon's procedure POD 2 Plan: 1. NPO 2. IVF 3. IV abx 4. OOB/ambulate. PT consult 5. IS 6. DVT/GI ppx 7. [facility] [facility] [employer] for pain management 8. [place] drain 9. await bowel function 10. supplemental O2 11. wound care consulted for vac placement - wound vac applied by carpet or rug layer helper. Thank you, please call with questions. Subjective Date of service: 06/26/18 Narrative: Pt seen and examined. Has been having shortness of breath today. She was started on O2 via mask. She states pain is ok. She wants something to eat or drink. No f/c. Objective Vital Signs - 12hr 06/25/18 06/26/18 06/26/18 23:43 00:07 04:34 Temperature 98.0 F 98.0 F 98.3 F Pulse Rate 114 H 108 H 112 H Respiratory 18 19 20 Rate Blood Pressure 145/85 147/90 Blood Pressure 145/85 [Left] O2 Sat by Pulse 94 94 90 Oximetry 06/26/18 06/26/18 06/26/18 07:25 07:50 10:39 Temperature 97.9 F 97.9 F Pulse Rate 120 H Respiratory 16 16 20 Rate Blood Pressure 144/74 Blood Pressure 144/74 [Left] O2 Sat by Pulse 83 L Oximetry - General physical appearance Narrative Exam: Gen: AAOx3. ENT: NGT with minimal bilious output CV: s1, s2+ Resp: no audible wheezing Abd: soft, mildly distended, NT. Midline incision removed and packing removed from wound. Wound bed clean and fat is healthy. [place] drain serous. Ostomy pink, no air or stool. Ext: no c/c/e - Labs 06/26/18 11:54 06/26/18 11:54
[2018-06-26] MEDS ORDERED: LASIX IV ONE ×2 (11:51→16:00)
[2018-06-26 12:38] LABS: Hematocrit 30.8 % (30.3-42.9); Hemoglobin 10.5 gm/dl (10.1-14.3); Mean Corpuscular HGB Conc 34 % (30-34); Mean Corpuscular Volume 88 fl (79-97); Platelet Count 583 K/mm3 (140-440); Red Blood Count 3.48 M/mm3 (3.65-5.03); Red Cell Distribution Width 14.9 % (13.2-15.2)
[2018-06-26 12:56] LABS: BUN/Creatinine Ratio 50; Blood Urea Nitrogen 15 mg/dL (7-17); Calcium 8.2 mg/dL (8.4-10.2); Hemolysis Index 64
--- NOTE | 2018-06-26 13:39 | Consultation ---
History of Present Illness - Reason for Consult Consult date: 06/26/18 purulent peritonitis Requesting physician: MÓNICA CHANG - History of Present Illness 58 y/o female with history of HTN, tobacco dependence admitted on 06/24/2018 due to a week history of abdominal pain. Pain started in the midabdomen, sharp then became diffuse 10 of 10. She was not able to pass gas for the past several days and has been having very small BMs. Reports nausea and poor appetite. Reports chronic cough for over a year with sputum production. In the ED, temp 97.8-->100, HR 140, R 20, O2 sat 97, BP 145/118. WBC 19. Hg 13. plat 457. Creat 0.4. LFTs normal. Alkphoos 269. UA negative. CT abdomen showed suspect diffuse moderate to severe enterocolitis with multiple air-fluid levels. Possible small bowel obstruction or high-grade incomplete obstruction. Transition point is not clearly identified but suspected in the pelvis. Small pockets of free air suggests perforation which could be related to the sigmoid colon which demonstrates diverticulosis/diverticulitis. Small amount of free fluid in the abdomen. Small to moderate fluid in the pelvis particularly around the sigmoid colon may represent developing abscesses. She was taken to the OR on 06/24/2018 for Exploratory laparotomy, Ezequiel's for perforated sigmoid diverticulitis with purulent peritonitis. Review of Systems: General: no fever, chills,+poor appetite Cutaneous: no rash, pruritus Head: no headaches or injury Eyes: no changes in vision, eye pain, double vision Ears: no ear pain, ear discharge, ringing or hearing loss Nose: no nose bleeding, stuffiness Mouth & throat: no bleeding gums, no horseness, no dental problems, or swollen glands Neck: no pain, node enlargement/lumps, tyroid enlargement or tenderness Respiratory: no cough, wheezing, sputum, hemoptysis, pleuritic chest pain Cardiovascular: no chest pain, leg edema, cyanosis, GARCIA, orthopnea Musculoskeletal: no decreased joint motion, bone or joint pain, joint swelling, muscle aches Gastrointestinal: +nausea, +abdominal pain, +constipation, no vomiting, hematemesis, diarrhea, constipation, melena, bright red blood in stools, fecal incontinence, jaundice Genitourinary/Reproductive: no frequent urination, dysuria, hematuria, incontinence Neurogical: no seizures, no headaches, no weakness, no paresthesias, no loss of speech or vision; no memory loss, no vertigo, no tremors, no numbness Psychiatric: stable mood; no excessive anxiety, sadness or moodiness Past History Past Medical History: other (malnutrition) Past Surgical History: No surgical history, Other (reviewed) Social history: single, smoking Family history: no significant family history (reviewed) Medications and Allergies Allergies Allergy/AdvReac Type Severity Reaction Status Date / Time No Known Allergies Allergy Unverified 06/24/18 10:41 Active Meds: Active Medications Acetaminophen (Tylenol) 650 mg PO Q4H PRN PRN Reason: Pain MILD(1-3)/Fever >100.5/LINK Albuterol (Proventil) 2.5 mg IH Q4HRT PRN PRN Reason: Shortness Of Breath Albuterol/Ipratropium (Duoneb *Not For Prn Use*) 1 ampul IH Q6HRT MAURICIO Enoxaparin Sodium (Lovenox) 40 mg SUB-Q QDAY@2200 MAURICIO Last Admin: 06/25/18 21:58 Dose: 40 mg Documented by: Fentanyl (Sublimaze) 50 mcg IV Q5MIN PRN PRN Reason: Pain , Severe (7-10) Metronidazole (Flagyl 500 Mg/100 Ml) 500 mg in 100 mls @ 100 mls/hr IV Q8H MAURICIO; Protocol Last Admin: 06/26/18 05:29 Dose: 100 mls/hr Documented by: Potassium Chloride/Dextrose/Sod Cl (D5w/Ns W/Kcl 20meq) 20 meq in 1,000 mls @ 125 mls/hr IV DIRECT MAURICIO Last Admin: 06/25/18 16:01 Dose: 125 mls/hr Documented by: Levofloxacin/Dextrose (Levaquin 500mg/100ml) 500 mg in 100 mls @ 100 mls/hr IV Q24H MAURICIO; Protocol Last Admin: 06/25/18 21:57 Dose: 100 mls/hr Documented by: Morphine Sulfate (Morphine Missile Mechanic 30mg/30ml) 0 mg IV DIRECT MAURICIO; Protocol Last Admin: 06/25/18 20:29 Dose: 1 cartstart Documented by: Naloxone HCl (Narcan 0.4 Mg/1 Ml) 0.1 mg IV Q2MIN PRN PRN Reason: Res Rate </= 8 or 02 SAT < 92% Nicotine (Habitrol) 14 mg TD QDAY [facility] Last Admin: 06/25/18 10:00 Dose: Not Given Documented by: Ondansetron HCl (Zofran) 4 mg IV Q8H PRN PRN Reason: Nausea And Vomiting Pantoprazole Sodium (Protonix) 40 mg IV QDAY [facility] Phenol (Chloraseptic) 1 spray MM PRN PRN PRN Reason: Sore Throat Sodium Chloride (Sodium Chloride Flush Syringe 10 Ml) 10 ml IV BID [facility] Last Admin: 06/25/18 21:58 Dose: 10 ml Documented by: Sodium Chloride (Sodium Chloride Flush Syringe 10 Ml) 10 ml IV PRN PRN PRN Reason: LINE FLUSH Physical Examination - Physical Exam Narrative exam: General appearance: Alert in NAD, conversant Eyes: anicteric sclerae, moist conjunctivae; no lid-lag; PERRLA HENT: Atraumatic; oropharynx clear with moist mucous membranes and no mucosal ulcerations/no oral thrush; normal hard and soft palate. Normal external ears. Neck: Trachea midline; supple, no thyromegaly or lymphadenopathy Lungs: bilateral rhonchi CV: RRR, no murmurs Abdomen: Soft, midline abdomen with wound VAC, drain Extremities: No peripheral edema or extremity lymphadenopathy Skin: Normal temperature, turgor and texture; no rash, ulcers or subcutaneous no dules Psych: Appropriate affect, alert and oriented to person, place and time. Neuro: alert and oriented x 3. Moving all extermities - Constitutional Vitals: Vital Signs Temp Pulse Resp BP Pulse Ox 98.4 F 105 H 20 145/75 94 06/26/18 11:51 06/26/18 11:51 06/26/18 11:51 06/26/18 11:51 06/26/18 12:40 Temperature -Last 24 Hours Temperature 98.4 F Temperature 97.9 F Temperature 97.9 F Temperature 98.3 F Temperature 98.0 F Temperature 98.0 F Temperature 98.1 F Temperature 98.5 F Temperature 98.5 F Results - Labs CBC & Chem 7: 06/26/18 11:54 06/26/18 11:54 Labs: Abnormal lab results 06/26/18 06/26/18 Range/Units 11:54 11:54 WBC 19.9 H (4.5-11.0) K/mm3 RBC 3.48 L (3.65-5.03) M/mm3 Plt Count 583 H (140-440) K/mm3 Sodium 146 H (137-145) mmol/L Chloride 109.9 H (98-107) mmol/L Creatinine 0.3 L (0.7-1.2) mg/dL Glucose 153 H (65-100) mg/dL Calcium 8.2 L (8.4-10.2) mg/dL Assessment and Plan Cultures: none Assessment: 58 y/o female with history of HTN, tobacco dependence admitted on 06/24/2018 due to a week history of severe abdominal pain, constipation and nausea. 1) Sepsis: Present on admission, manifested by fever, tachycardia, leukocytosis,increased lactate. Etiology most likely peritonitis from diverticular perforation/abscess +/- enterocolitis +/- partial SBO. UA negative. 2) Acute fecal peritonitis from diverticular perforation/abscess: CT abdomen showed suspect diffuse moderate to severe enterocolitis with multiple air-fluid levels. Possible small bowel obstruction or high-grade incomplete obstruction. Transition point is not clearly identified but suspected in the pelvis. Small pockets of free air suggests perforation which could be related to the sigmoid colon which demonstrates diverticulosis/diverticulitis. Small amount of free fluid in the abdomen. Small to moderate fluid in the pelvis particularly around the sigmoid colon may represent developing abscesses. She was taken to the OR on 06/24/2018 for Exploratory laparotomy, Ezequiel's for perforated sigmoid diverticulitis with purulent peritonitis. 3) Chronic cough ? COPD Recommendations: - obtain blood cultures - obtain C-reactive protein (CRP) - follow-up CXR - start ceftriaxone, flagyl and fluconazole - stop levaquin Will follow. Cira Villanueva MD Infectious Diseases [employer] [facility] M [phone] O [phone]
--- NOTE | 2018-06-26 13:51 | XRay Report ---
AP CHEST: HISTORY: Short of breath No comparison. Patchy infiltrates are identified in both lower lung zones, left greater than right. The upper lung zones are clear. No pleural effusion or pneumothorax. Normal heart size. A nasogastric tube terminates in the fundus of the stomach. IMPRESSION: Bilateral infiltrates concerning for pneumonia or aspiration.
[2018-06-26] MEDS ORDERED: ROCEPHIN/NS 2 GM/100 ML 2 GM/100 ML BAG IV SCH (14:00)
[2018-06-26] MEDS: DIFLUCAN 200 ML IV SCH (14:37)
[2018-06-26] MEDS: DUONEB *Not for PRN Use IH SCH ×2 (15:46→20:18)
[2018-06-26] MEDS: MORPHINE PCA 30MG/30ML IV SCH (18:28)
[2018-06-26] MEDS: SODIUM CHLORIDE FLUSH SYRINGE 10 ML IV SCH ×2 (20:35→21:27)
[2018-06-26] MEDS: LOVENOX SUB-Q SCH (21:27)
[2018-06-26] MEDS: D5W/NS W/KCL 20MEQ 20 MEQ/1,000 ML BAG IV SCH (22:54)
[2018-06-27] MEDS ORDERED: ATIVAN IV ONE (00:47)
[2018-06-27] MEDS ORDERED: SOLU-Medrol IV ONE (01:00)
[2018-06-27] MEDS: DUONEB *Not for PRN Use IH SCH ×4 (01:48→21:13)
[2018-06-27] MEDS: FLAGYL 500 MG/100 ML 500 MG/100 ML BAG IV SCH ×3 (05:17→21:37)
--- NOTE | 2018-06-27 05:26 | Event Note ---
<GLENDY OLIVA - Last Filed: 06/27/18 05:22> Date: 06/27/18 Called to bedside due to decreased O2 sats increased and heart rate. Patient has history of COPD, nicotine dependence and complains of difficulty breathing. Vital signs BP 152/79, heart rate 114 bpm, O2 sat 84% on high flow Vapotherm 100% FiO2. Ordered Ativan 0.5 mg and Solu-Medrol 125 mg 1. Respiratory was also at the bedside patient was given nebulizer treatment, an ABG was ordered. Post neb tx, Ativan, and systemic steriod patient is resting in bed with O2 sat 94% with heart rate 99bpm NAD. Repeat ABG unchanged from previous. <ANDREW ADHIKARI - Last Filed: 06/27/18 21:43> I personally discussed the patient with the BEAM DYER-C, I agree with the above documentations
[2018-06-27] MEDS ORDERED: BROVANA NEBU IH SCH (08:00)
[2018-06-27] MEDS: HABITROL TD SCH (09:42)
[2018-06-27] MEDS: PROTONIX IV SCH (09:42)
[2018-06-27] MEDS: SODIUM CHLORIDE FLUSH SYRINGE 10 ML IV SCH ×2 (09:42→21:38)
[2018-06-27] MEDS ORDERED: ROCEPHIN/NS 2 GM/100 ML 2 GM/100 ML BAG IV SCH (10:00)
--- NOTE | 2018-06-27 10:04 | Progress Note ---
Assessment and Plan Cultures: 06/26/18 Blood: in progress Assessment: 58 y/o female with history of HTN, tobacco dependence admitted on 06/24/2018 due to a week history of severe abdominal pain, constipation and nausea. 1) Sepsis: Improved. no fevers. Leukocytosis trending up. Etiology most likely peritonitis from diverticular perforation/abscess +/- enterocolitis +/- partial SBO. UA negative.Afebrile since 06/24/18. CRP 25.70 2) Acute fecal peritonitis from diverticular perforation/abscess: CT abdomen carol wed suspect diffuse moderate to severe enterocolitis with multiple air-fluid levels. Possible small bowel obstruction or high-grade incomplete obstruction. Transition point is not clearly identified but suspected in the pelvis. Small pockets of free air suggests perforation which could be related to the sigmoid colon which demonstrates diverticulosis/diverticulitis. Small amount of free fluid in the abdomen. Small to moderate fluid in the pelvis particularly around the sigmoid colon may represent developing abscesses. She was taken to the OR on 06/24/2018 for Exploratory laparotomy, Ezequiel's for perforated sigmoid diverticulitis with purulent peritonitis. 3) Chronic cough ? COPD 4) Presumed Pneumonia: likely aspiration vs HAP. CXR shows Bilateral infiltrates concerning for pneumonia or aspiration, 5) Acute Respiratory failure: On high flow O2 Recommendations: - follow-up blood cultures - Discontinue ceftriaxone 2g IV every 24 hours -,continue flagyl 500mg IV every 8 hours, D4 - continue fluconazole 200 ml IV every 24 hours, D2 -start Cefepime and Vancomycin to cover HAP -Continue to monitor WBC -CBC ordered for tomorrow - JUAN [facility] M: [phone] O:[phone] Subjective Date of service: 06/27/18 Interval history: Patient seen and examined. Somnolent. Eyes open to name, follows simple commands. Objective - Exam Narrative Exam: General appearance: Somnolent. Generalized weakness. Eyes: anicteric sclerae, moist conjunctivae; no lid-lag; PERRLA HENT: Atraumatic; oropharynx clear with moist mucous membranes and no mucosal ulcerations/no oral thrush; normal hard and soft palate. Normal external ears. Neck: Trachea midline; supple, no thyromegaly or lymphadenopathy Lungs: bilateral rhonchi CV: RRR, no murmurs Abdomen: Soft, midline abdomen with wound VAC, drain Extremities: No peripheral edema or extremity lymphadenopathy Skin: Normal temperature, turgor and texture; no rash, ulcers or subcutaneous nodules Psych: somnolent. Neuro: Somnolent. follows simple commands - Constitutional Vitals: Vital Signs Temp Pulse Resp BP Pulse Ox 97.6 F 100 H 24 127/79 94 06/27/18 07:05 06/27/18 07:05 06/27/18 08:10 06/27/18 07:05 06/27/18 08:59 Temperature -Last 24 Hours Temperature 97.6 F Temperature 98.7 F Temperature 98.9 F Temperature 98.8 F Temperature 98.4 F - Labs CBC & Chem 7: 06/27/18 11:50 06/27/18 09:19 Labs: Abnormal lab results 06/26/18 06/26/18 06/26/18 Range/Units 11:54 11:54 14:12 WBC 19.9 H (4.5-11.0) K/mm3 RBC 3.48 L (3.65-5.03) M/mm3 Plt Count 583 H (140-440) K/mm3 POC ABG pH (7.35-7.45) POC ABG pO2 (80-105) Sodium 146 H (137-145) mmol/L Chloride 109.9 H (98-107) mmol/L Creatinine 0.3 L (0.7-1.2) mg/dL Glucose 153 H (65-100) mg/dL Calcium 8.2 L (8.4-10.2) mg/dL C-Reactive Protein 25.70 H (0.00-1.30) mg/dL 06/26/18 06/27/18 Range/Units 20:37 02:04 WBC (4.5-11.0) K/mm3 RBC (3.65-5.03) M/mm3 Plt Count (140-440) K/mm3 POC ABG pH 7.471 H 7.458 H (7.35-7.45) POC ABG pO2 74 L 70 L (80-105) Sodium (137-145) mmol/L Chloride (98-107) mmol/L Creatinine (0.7-1.2) mg/dL Glucose (65-100) mg/dL Calcium (8.4-10.2) mg/dL C-Reactive Protein (0.00-1.30) mg/dL
[2018-06-27 10:29] LABS: BUN/Creatinine Ratio 43; Blood Urea Nitrogen 13 mg/dL (7-17); Calcium 8.2 mg/dL (8.4-10.2); Hemolysis Index 11
--- NOTE | 2018-06-27 10:37 | Progress Note ---
Assessment and Plan 58 yo F s/p exploratory laparotomy, peritoneal lavage, landon's procedure POD 3 Plan: 1. NPO 2. maintenance IVF 3. IV abx per ID 4. OOB/ambulate. PT consult 5. IS/pulm toilet. 6. DVT/GI ppx 7. GIFT OFFICER for pain management 8. [place] drain 9. await bowel function 10. supplemental O2, nebs 11. continue wound vac 12. stat BMP, Mg, Phos Thank you, please call with questions. Subjective Date of service: 06/27/18 Narrative: Pt seen and examined. Had decrease in pulse ox yesterday which responded to IV steroid and nebs, supplemental O2. She states she feels better today. No n/v, f/c, cp. Objective Vital Signs - 12hr 06/26/18 06/26/18 06/27/18 23:24 23:25 00:04 Temperature 98.7 F Pulse Rate 102 H 99 H 102 H Pulse Rate [ Anterior Bilateral Throughout] Respiratory 22 22 Rate Respiratory Rate [Anterior Bilateral Throughout] Blood Pressure 138/55 Blood Pressure 138/55 [Left] O2 Sat by Pulse 92 93 92 Oximetry 06/27/18 06/27/18 06/27/18 01:30 01:40 02:03 Temperature Pulse Rate Pulse Rate [ 117 H 124 H Anterior Bilateral Throughout] Respiratory Rate Respiratory 24 22 Rate [Anterior Bilateral Throughout] Blood Pressure Blood Pressure [Left] O2 Sat by Pulse 90 94 Oximetry 06/27/18 06/27/18 06/27/18 07:05 08:10 08:59 Temperature 97.6 F Pulse Rate 100 H Pulse Rate [ Anterior Bilateral Throughout] Respiratory 24 24 Rate Respiratory Rate [Anterior Bilateral Throughout] Blood Pressure Blood Pressure 127/79 [Left] O2 Sat by Pulse 90 94 Oximetry - General physical appearance Narrative Exam: Gen: AAOx3. ENT: NGT with clear gastric content CV: s1, s2+ Resp: no audible wheezing Abd: soft, ND, NT. Midline incision with vac in place - good seal, no leak. [place] drain serous. Ostomy pink, no air or stool. Ext: no c/c/e - Labs 06/26/18 11:54 06/27/18 09:19 Diabetes panel 06/26/18 06/27/18 Range/Units 11:54 09:19 Sodium 146 H 146 H (137-145) mmol/L Potassium 3.6 3.5 L (3.6-5.0) mmol/L Chloride 109.9 H 105.7 (98-107) mmol/L Carbon Dioxide 27 29 (22-30) mmol/L BUN 15 13 (7-17) mg/dL Creatinine 0.3 L 0.3 L (0.7-1.2) mg/dL Glucose 153 H 176 H (65-100) mg/dL Calcium 8.2 L 8.2 L (8.4-10.2) mg/dL Calcium panel 06/26/18 06/27/18 Range/Units 11:54 09:19 Calcium 8.2 L 8.2 L (8.4-10.2) mg/dL Phosphorus 2.80 (2.5-4.5) mg/dL Pituitary panel 06/26/18 06/27/18 Range/Units 11:54 09:19 Sodium 146 H 146 H (137-145) mmol/L Potassium 3.6 3.5 L (3.6-5.0) mmol/L Chloride 109.9 H 105.7 (98-107) mmol/L Carbon Dioxide 27 29 (22-30) mmol/L BUN 15 13 (7-17) mg/dL Creatinine 0.3 L 0.3 L (0.7-1.2) mg/dL Glucose 153 H 176 H (65-100) mg/dL Calcium 8.2 L 8.2 L (8.4-10.2) mg/dL Adrenal panel 06/26/18 06/27/18 Range/Units 11:54 09:19 Sodium 146 H 146 H (137-145) mmol/L Potassium 3.6 3.5 L (3.6-5.0) mmol/L Chloride 109.9 H 105.7 (98-107) mmol/L Carbon Dioxide 27 29 (22-30) mmol/L BUN 15 13 (7-17) mg/dL Creatinine 0.3 L 0.3 L (0.7-1.2) mg/dL Glucose 153 H 176 H (65-100) mg/dL Calcium 8.2 L 8.2 L (8.4-10.2) mg/dL
[2018-06-27] MEDS: DIFLUCAN 200 ML IV SCH (10:49)
--- NOTE | 2018-06-27 11:20 | Progress Note ---
Assessment and Plan Assessment and plan: 58 year old woman who presented to the hospital with generalized abdominal pain. Past medical history includes tobacco abuse, current everyday smoker Diagnosis Severe enterocolitis Purulent peritonitis Sigmoid diverticulitis with perforation of distal sigmoid colon hypokalemia, severe hyponatremia Moderate malnutrition Nicotine dependence Sepsis Acute hypoxic respiratory failure Plan Status post ex lap, peritoneal lavage, Posey's procedure on 06/24 Electrolytes have been replaced Keep on Tele and continuous pulse ox patient was counseled on preventive health Management for over 17 minutes abx per ID Obtain CT Chest lasix, oxygen supplement, breathing rx as needed DVT prophylaxis lovenox Full code status History Interval history: Abdominal pain Hospitalist Physical - Physical exam Narrative exam: Gen: Not in acute distress, lying in bed, HEENT: Normocephalic, atraumatic Neck: supple, no JVD Heart: S1 and S2 reg, no murmurs, rubs or gallop Lungs: Clear, no crackles, no wheeze Abd: soft, mild tender, mild distended, midline wound, ostomy pink, surgical drain, Ext:No edema, no clubbing, no cyanosis Neuro: Awake,alert, oriented x 3, moves all ext, non focal Psych:Normal mood - Constitutional Vitals: Temp Pulse Resp BP Pulse Ox 97.9 F 105 H 22 149/76 92 06/27/18 11:10 06/27/18 11:10 06/27/18 11:10 06/27/18 11:10 06/27/18 11:10 Results - Labs CBC & Chem 7: 06/27/18 11:50 06/27/18 09:19 Labs: Laboratory Last Values WBC 19.9 K/mm3 (4.5-11.0) H 06/26/18 11:54 RBC 3.48 M/mm3 (3.65-5.03) L 06/26/18 11:54 Hgb 10.5 gm/dl (10.1-14.3) 06/26/18 11:54 Hct 30.8 % (30.3-42.9) 06/26/18 11:54 MCV 88 fl (79-97) 06/26/18 11:54 MCH 30 pg (28-32) 06/26/18 11:54 MCHC 34 % (30-34) 06/26/18 11:54 RDW 14.9 % (13.2-15.2) 06/26/18 11:54 Plt Count 583 K/mm3 (140-440) H 06/26/18 11:54 Add Manual Diff Complete 06/25/18 06:55 Total Counted 100 06/25/18 06:55 Seg Neutrophils % Manager Account Management 06/25/18 06:55 Seg Neuts % (Manual) 88.0 % (40.0-70.0) H 06/25/18 06:55 5.0 % 06/25/18 06:55 4.0 % (13.4-35.0) L 06/25/18 06:55 Reactive Lymphs % (Man) 0 % 06/25/18 06:55 3.0 % (0.0-7.3) 06/25/18 06:55 0 % (0.0-4.3) 06/25/18 06:55 0 % (0.0-1.8) 06/25/18 06:55 0 % 06/25/18 06:55 0 % 06/25/18 06:55 0 % 06/25/18 06:55 0 % 06/25/18 06:55 Nucleated RBC % Not Reportable 06/25/18 06:55 Seg Neutrophils # Man 16.1 K/mm3 (1.8-7.7) H 06/25/18 06:55 Band Neutrophils # 0.9 K/mm3 06/25/18 06:55 0.7 K/mm3 (1.2-5.4) L 06/25/18 06:55 Abs React Lymphs (Man) 0.0 K/mm3 06/25/18 06:55 0.5 K/mm3 (0.0-0.8) 06/25/18 06:55 0.0 K/mm3 (0.0-0.4) 06/25/18 06:55 0.0 K/mm3 (0.0-0.1) 06/25/18 06:55 0.0 K/mm3 06/25/18 06:55 0.0 K/mm3 06/25/18 06:55 0.0 K/mm3 06/25/18 06:55 Blast Cells # 0.0 K/mm3 06/25/18 06:55 WBC Morphology Not Reportable 06/25/18 06:55 Hypersegmented Neuts Not Reportable 06/25/18 06:55 Hyposegmented Neuts Not Reportable 06/25/18 06:55 Hypogranular Neuts Not Reportable 06/25/18 06:55 Not Reportable 06/25/18 06:55 Not Reportable 06/25/18 06:55 Not Reportable 06/25/18 06:55 Not Reportable 06/25/18 06:55 Not Reportable 06/25/18 06:55 Not Reportable 06/25/18 06:55 Consistent w auto 06/25/18 06:55 Not Reportable 06/25/18 06:55 Plt Clumps, EDTA Not Reportable 06/25/18 06:55 Not Reportable 06/25/18 06:55 Not Reportable 06/25/18 06:55 Not Reportable 06/25/18 06:55 Plt Morphology Comment Not Reportable 06/25/18 06:55 RBC Morphology Not Reportable 06/25/18 06:55 Dimorphic RBCs Not Reportable 06/25/18 06:55 Not Reportable 06/25/18 06:55 Not Reportable 06/25/18 06:55 Not Reportable 06/25/18 06:55 Not Reportable 06/25/18 06:55 Not Reportable 06/25/18 06:55 Not Reportable 06/25/18 06:55 Not Reportable 06/25/18 06:55 Not Reportable 06/25/18 06:55 Not Reportable 06/25/18 06:55 3+ 06/25/18 06:55 Not Reportable 06/25/18 06:55 Not Reportable 06/25/18 06:55 Not Reportable 06/25/18 06:55 Not Reportable 06/25/18 06:55 Not Reportable 06/25/18 06:55 Not Reportable 06/25/18 06:55 Not Reportable 06/25/18 06:55 Not Reportable 06/25/18 06:55 Not Reportable 06/25/18 06:55 Acanthocytes (Spur) Not Reportable 06/25/18 06:55 Rouleaux Not Reportable 06/25/18 06:55 Not Reportable 06/25/18 06:55 Not Reportable 06/25/18 06:55 Not Reportable 06/25/18 06:55 Not Reportable 06/25/18 06:55 Hem Pathologist Commnt No 06/25/18 06:55 PT 15.9 Sec. (12.2-14.9) H 06/24/18 11:18 INR 1.19 (0.87-1.13) H 06/24/18 11:18 APTT 31.8 Sec. (24.2-36.6) 06/24/18 11:18 POC ABG pH 7.458 (7.35-7.45) H 06/27/18 02:04 POC ABG pCO2 42.2 (35-45) 06/27/18 02:04 POC ABG pO2 70 (80-105) L 06/27/18 02:04 POC ABG HCO3 29.9 (22-26 mml/L) 06/27/18 02:04 POC ABG Total CO2 31 (23-27mmol/L) 06/27/18 02:04 POC ABG O2 Sat 95 06/27/18 02:04 POC ABG Base Excess 6 ((-2) - (+3)mmol/L) 06/27/18 02:04 100 % 06/27/18 02:04 Sodium 146 mmol/L (137-145) H 06/27/18 09:19 Potassium 3.5 mmol/L (3.6-5.0) L 06/27/18 09:19 Chloride 105.7 mmol/L (98-107) 06/27/18 09:19 Carbon Dioxide 29 mmol/L (22-30) 06/27/18 09:19 15 mmol/L 06/27/18 09:19 BUN 13 mg/dL (7-17) 06/27/18 09:19 0.3 mg/dL (0.7-1.2) L 06/27/18 09:19 Estimated GFR > 60 ml/min 06/27/18 09:19 43 % 06/27/18 09:19 Glucose 176 mg/dL (65-100) H 06/27/18 09:19 Calcium 8.2 mg/dL (8.4-10.2) L 06/27/18 09:19 Phosphorus 2.80 mg/dL (2.5-4.5) 06/27/18 09:19 Magnesium 2.10 mg/dL (1.7-2.3) 06/27/18 09:19 0.90 mg/dL (0.1-1.2) 06/25/18 06:55 1.5 mg/dL (0-0.2) H 06/24/18 11:19 0.4 mg/dL 06/24/18 11:19 AST 16 units/L (5-40) 06/25/18 06:55 ALT 21 units/L (7-56) 06/25/18 06:55 152 units/L (35-129) H 06/25/18 06:55 25.70 mg/dL (0.00-1.30) H 06/26/18 14:12 5.3 g/dL (6.3-8.2) L 06/25/18 06:55 2.1 g/dL (3.9-5) L 06/25/18 06:55 0.7 % 06/25/18 06:55 8 units/L (13-60) L 06/24/18 11:19 Yellow (Yellow) 06/24/18 13:00 Clear (Clear) 06/24/18 13:00 6.0 (5.0-7.0) 06/24/18 13:00 Ur Specific [place] > 1.059 (1.003-1.030) H 06/24/18 13:00 30 mg/dl mg/dL (Negative) 06/24/18 13:00 Neg mg/dL (Negative) 06/24/18 13:00 Neg mg/dL (Negative) 06/24/18 13:00 Neg (Negative) 06/24/18 13:00 Neg (Negative) 06/24/18 13:00 Neg (Negative) 06/24/18 13:00 4.0 mg/dL (<2.0) 06/24/18 13:00 Ur Leukocyte Esterase Neg (Negative) 06/24/18 13:00 2.0 /HPF (0.0-6.0) 06/24/18 13:00 2.0 /HPF (0.0-6.0) 06/24/18 13:00 U Epithel Cells (Auto) 1.0 /HPF (0-13.0) 06/24/18 13:00 1+ /HPF (Negative) 06/24/18 13:00 Active Medications - Current Medications Current Medications: Generic Name Dose Route Start Last Admin Trade Name Freq PRN Reason Stop Dose Admin Acetaminophen 650 mg 06/24/18 14:00 Tylenol PO Q4H PRN Pain MILD(1-3)/Fever >100.5/LINK Albuterol 2.5 mg 06/24/18 14:00 Proventil IH Q4HRT PRN Shortness Of Breath Albuterol/Ipratropium 1 ampul 06/26/18 14:00 06/27/18 10:07 Duoneb *Not For Prn Use* IH 1 ampul Q6HRT MAURICIO Administration Enoxaparin Sodium 40 mg 06/25/18 22:00 06/26/18 21:27 Lovenox SUB-Q 40 mg QDAY@2200 MAURICIO Administration Fentanyl 50 mcg 06/24/18 15:23 Sublimaze IV Q5MIN PRN Pain , Severe (7-10) Metronidazole 500 mg in 100 mls @ 100 mls/hr 06/24/18 22:00 06/27/18 05:17 Flagyl 500 Mg/100 Ml IV 100 mls/hr Q8H MAURICIO Administration Protocol Potassium Chloride/Dextrose/Sod Cl 20 meq in 1,000 mls @ 125 mls/hr 06/24/18 19:00 06/26/18 22:54 D5w/Ns W/Kcl 20meq IV 125 mls/hr DIRECT MAURICIO Administration Fluconazole 200 mls @ 100 mls/hr 06/26/18 14:00 06/27/18 10:49 Diflucan IV 100 mls/hr Q24HR MAURICIO Administration Protocol Ceftriaxone Sodium 2 gm in 100 mls @ 200 mls/hr 06/27/18 10:00 06/27/18 09:41 Rocephin/Ns 2 Gm/100 Ml IV 200 mls/hr Q24HR MAURICIO Administration Protocol Morphine Sulfate 0 mg 06/24/18 19:00 06/26/18 18:28 Morphine Licensing Representative 30mg/30ml IV 1 cartstart DIRECT MAURICIO Administration Protocol Naloxone HCl 0.1 mg 06/24/18 18:55 Narcan 0.4 Mg/1 Ml IV Q2MIN PRN Res Rate </= 8 or 02 SAT < 92% Nicotine 14 mg 06/25/18 10:00 06/27/18 09:42 Habitrol TD 14 mg QDAY MAURICIO Administration Ondansetron HCl 4 mg 06/24/18 14:00 Zofran IV Q8H PRN Nausea And Vomiting Pantoprazole Sodium 40 mg 06/26/18 10:00 06/27/18 09:42 Protonix IV 40 mg QDAY MAURICIO Administration Phenol 1 spray 06/25/18 13:51 Chloraseptic MM PRN PRN Sore Throat Sodium Chloride 10 ml 06/24/18 22:00 06/27/18 09:42 Sodium Chloride Flush Syringe 10 Ml IV 10 ml BID MAURICIO Administration Sodium Chloride 10 ml 06/24/18 14:00 Sodium Chloride Flush Syringe 10 Ml IV PRN PRN LINE FLUSH
[2018-06-27 12:30] LABS: Hematocrit 32.4 % (30.3-42.9); Red Blood Count 3.69 M/mm3 (3.65-5.03)
[2018-06-27 12:31] LABS: Mean Corpuscular HGB Conc 34 % (30-34); Mean Corpuscular Volume 88 fl (79-97); Platelet Count 583 K/mm3 (140-440); Red Cell Distribution Width 14.9 % (13.2-15.2)
[2018-06-27 13:09] LABS: Anisocytosis 1+; Basophils % (Manual) 0 % (0.0-1.8); Eosinophils % (Manual) 0 % (0.0-4.3); Monocytes % (Manual) 0 % (0.0-7.3); Platelet Estimate Consistent w Auto; Total Cells Counted 100
[2018-06-27] MEDS: D5W/NS W/KCL 20MEQ 20 MEQ/1,000 ML BAG IV SCH (13:33)
[2018-06-27] MEDS ORDERED: .VANCOMYCIN VIAL 1,000 MG in NACL 0.9% 100 ML IV SCH (14:00)
[2018-06-27] MEDS: MAXIPIME/NS 2 GM/100 ML 2 GM/100 ML BAG IV SCH ×2 (15:34→21:37)
[2018-06-27] MEDS: VANCOMYCIN/NS 1 GM/250 ML 1 GM/250 ML BAG IV SCH (16:40)
[2018-06-27] MEDS: LOVENOX SUB-Q SCH (21:37)
[2018-06-27] MEDS: MORPHINE PCA 30MG/30ML IV SCH (21:51)
[2018-06-28 00:26] LABS: Hematocrit 33.2 % (30.3-42.9); Hemoglobin 11.1 gm/dl (10.1-14.3); Mean Corpuscular HGB Conc 34 % (30-34); Mean Corpuscular Volume 89 fl (79-97); Platelet Count 657 K/mm3 (140-440); Red Blood Count 3.74 M/mm3 (3.65-5.03); Red Cell Distribution Width 15.4 % (13.2-15.2)
[2018-06-28] MEDS: DUONEB *Not for PRN Use IH SCH ×4 (02:34→20:16)
[2018-06-28] MEDS: VANCOMYCIN/NS 1 GM/250 ML 1 GM/250 ML BAG IV SCH (03:36)
[2018-06-28 05:29] LABS: Band Neutrophils # (Manual) 1.7 K/mm3; Basophils % (Manual) 0 % (0.0-1.8); Eosinophils % (Manual) 0 % (0.0-4.3); Platelet Estimate Appears Increased; Target Cells Few; Total Cells Counted 200
[2018-06-28] MEDS: FLAGYL 500 MG/100 ML 500 MG/100 ML BAG IV SCH ×3 (06:12→22:05)
[2018-06-28] MEDS: D5W/NS W/KCL 20MEQ 20 MEQ/1,000 ML BAG IV SCH (06:13)
[2018-06-28] MEDS ORDERED: LEVALBUTEROL IH ONE (08:52)
[2018-06-28] MEDS: HABITROL TD SCH (09:10)
[2018-06-28] MEDS: PROTONIX IV SCH (09:10)
--- NOTE | 2018-06-28 09:45 | Progress Note ---
Assessment and Plan Cultures: 06/26/18 Blood: in progress Assessment: 58 y/o female with history of HTN, tobacco dependence admitted on 06/24/2018 due to a week history of severe abdominal pain, constipation and nausea. 1) Sepsis: Improved. no fevers. Noted WBC increase to 37.2. Etiology most likely peritonitis from diverticular perforation/abscess +/- enterocolitis +/- partial SBO. UA negative.Afebrile since 06/24/18. CRP 25.70 2) Acute fecal peritonitis from diverticular perforation/abscess: CT abdomen showed suspect diffuse moderate to severe enterocolitis with multiple air-fluid levels. Possible small bowel obstruction or high-grade incomplete obstruction. Transition point is not clearly identified but suspected in the pelvis. Small pockets of free air suggests perforation which could be related to the sigmoid colon which demonstrates diverticulosis/diverticulitis. Small amount of free fluid in the abdomen. Small to moderate fluid in the pelvis particularly around the sigmoid colon may represent developing abscesses. She was taken to the OR on 06/24/2018 for Exploratory laparotomy, Ezequiel's for perforated sigmoid diverticulitis with purulent peritonitis. 3) Chronic cough ? COPD 4) Presumed Pneumonia: likely aspiration vs HAP. CXR shows Bilateral infiltrates concerning for pneumonia or aspiration, 5) Acute Respiratory failure: On high flow O2, with interocostal retractions.Tr ansferred to ICU. Recommendations: - follow-up blood cultures -,continue flagyl 500mg IV every 8 hours, D5 - continue fluconazole 200 ml IV every 24 hours, D3 - continue Cefepime and Vancomycin to cover HAP, D2 -Continue to monitor WBC [facility] M: [phone] O:[phone] Subjective Date of service: 06/28/18 Interval history: Patient seen and examined. Awake. alert. Increased work of breathing. On high flow 02, Acute respiratory distress. Nurse aware, patient going to ICU. Objective - Exam Narrative Exam: General appearance: Awake. alert. Acute respiratory distress. Eyes: anicteric sclerae, moist conjunctivae; no lid-lag; PERRLA HENT: Atraumatic; oropharynx clear with moist mucous membranes and no mucosal ulcerations/no oral thrush; normal hard and soft palate. Normal external ears. Neck: Trachea midline; supple, no thyromegaly or lymphadenopathy Lungs: bilateral rhonchi. increased WOB. On high flow 02. interocostal retrac tions CV: RRR, no murmurs Abdomen: Soft, midline abdomen with wound VAC, drain Extremities: No peripheral edema or extremity lymphadenopathy Skin: Normal temperature, turgor and texture; no rash, ulcers or subcutaneous nodules Psych: somnolent. Neuro: Somnolent. follows simple commands - Constitutional Vitals: Vital Signs Temp Pulse Resp BP Pulse Ox 97.4 F L 118 H 22 128/64 93 06/28/18 04:08 06/28/18 09:25 06/28/18 09:25 06/28/18 04:08 06/28/18 09:21 Temperature -Last 24 Hours Temperature 97.4 F Temperature 98.5 F Temperature 98.1 F Temperature 98.0 F Temperature 97.9 F - Labs CBC & Chem 7: 06/28/18 09:56 06/28/18 09:56 Labs: Abnormal lab results 06/27/18 06/27/18 06/28/18 Range/Units 09:19 11:50 00:17 WBC 24.5 H 37.2 H (4.5-11.0) K/mm3 RDW 15.4 H (13.2-15.2) % Plt Count 583 H 657 H (140-440) K/mm3 Seg Neuts % (Manual) 98.0 H 88.5 H (40.0-70.0) % Lymphocytes % (Manual) 1.0 L 4.0 L (13.4-35.0) % Seg Neutrophils # Man 24.0 H 32.9 H (1.8-7.7) K/mm3 Lymphocytes # (Manual) 0.2 L (1.2-5.4) K/mm3 Monocytes # (Manual) 1.1 H (0.0-0.8) K/mm3 Sodium 146 H (137-145) mmol/L Potassium 3.5 L (3.6-5.0) mmol/L Creatinine 0.3 L (0.7-1.2) mg/dL Glucose 176 H (65-100) mg/dL Calcium 8.2 L (8.4-10.2) mg/dL
[2018-06-28] MEDS: DIFLUCAN 200 ML IV SCH (09:48)
[2018-06-28] MEDS: MAXIPIME/NS 2 GM/100 ML 2 GM/100 ML BAG IV SCH ×2 (09:53→22:05)
[2018-06-28] MEDS ORDERED: LASIX IV STA ×2 (09:59→12:05)
[2018-06-28] MEDS ORDERED: D5W/0.45% NACL/KCL 20 MEQ 20 MEQ/1,000 ML BAG IV SCH (10:00)
--- NOTE | 2018-06-28 10:04 | Progress Note ---
Assessment and Plan Assessment and plan: 58 year old woman who presented to the hospital with generalized abdominal pain. Past medical history includes tobacco abuse, current everyday smoker Diagnosis Acute hypoxic respiratory failure on High flow NC Oxygen Severe enterocolitis Purulent peritonitis Sigmoid diverticulitis with perforation of distal sigmoid colon hypokalemia, severe hyponatremia Moderate malnutrition Nicotine dependence Sepsis Acute hypoxic respiratory failure Leukocytosis worse, may be sepsis versus solumedrol given Plan Consult Pulm Give Lasix 40mg iv stat ABG stat Repeat CXR today worse, bilat infiltrates Transfer to [facility] Status post ex lap, peritoneal lavage, Posey's procedure on 06/24 Electrolytes have been replaced abx per ID Obtain CT Chest lasix, oxygen supplement, breathing rx as needed DVT prophylaxis lovenox Full code status Discussed with Dr. Wilcox. History Interval history: Abdominal pain Shortness of breath, worse now on high flow Oxygen Hospitalist Physical - Physical exam Narrative exam: Gen: Mild resp distress, lying in bed, HEENT: Normocephalic, atraumatic Neck: supple, no JVD Heart: S1 and S2 reg, no murmurs, rubs or gallop Lungs: Bilateral crackles, no wheeze Abd: soft, mild tender, mild distended, midline wound, ostomy pink, surgical drain, Ext:No edema, no clubbing, no cyanosis Neuro: Awake,alert, oriented x 3, moves all ext, non focal Psych:Normal mood - Constitutional Vitals: Temp Pulse Resp BP Pulse Ox 97.4 F L 118 H 22 128/64 93 06/28/18 04:08 06/28/18 09:25 06/28/18 09:25 06/28/18 04:08 06/28/18 09:21 General appearance: Present: mild distress Results - Labs CBC & Chem 7: 06/28/18 00:17 06/27/18 09:19 Labs: Laboratory Last Values WBC 37.2 K/mm3 (4.5-11.0) H 06/28/18 00:17 RBC 3.74 M/mm3 (3.65-5.03) 06/28/18 00:17 Hgb 11.1 gm/dl (10.1-14.3) 06/28/18 00:17 Hct 33.2 % (30.3-42.9) 06/28/18 00:17 MCV 89 fl (79-97) 06/28/18 00:17 MCH 30 pg (28-32) 06/28/18 00:17 MCHC 34 % (30-34) 06/28/18 00:17 RDW 15.4 % (13.2-15.2) H 06/28/18 00:17 Plt Count 657 K/mm3 (140-440) H 06/28/18 00:17 Add Manual Diff Complete 06/28/18 00:17 Total Counted 200 06/28/18 00:17 Seg Neutrophils % Infant Caregiver 06/28/18 00:17 Seg Neuts % (Manual) 88.5 % (40.0-70.0) H 06/28/18 00:17 4.5 % 06/28/18 00:17 4.0 % (13.4-35.0) L 06/28/18 00:17 Reactive Lymphs % (Man) 0 % 06/28/18 00:17 3.0 % (0.0-7.3) 06/28/18 00:17 0 % (0.0-4.3) 06/28/18 00:17 0 % (0.0-1.8) 06/28/18 00:17 0 % 06/28/18 00:17 0 % 06/28/18 00:17 0 % 06/28/18 00:17 0 % 06/28/18 00:17 Nucleated RBC % Not Reportable 06/28/18 00:17 Seg Neutrophils # Man 32.9 K/mm3 (1.8-7.7) H 06/28/18 00:17 Band Neutrophils # 1.7 K/mm3 06/28/18 00:17 1.5 K/mm3 (1.2-5.4) 06/28/18 00:17 Abs React Lymphs (Man) 0.0 K/mm3 06/28/18 00:17 1.1 K/mm3 (0.0-0.8) H 06/28/18 00:17 0.0 K/mm3 (0.0-0.4) 06/28/18 00:17 0.0 K/mm3 (0.0-0.1) 06/28/18 00:17 0.0 K/mm3 06/28/18 00:17 0.0 K/mm3 06/28/18 00:17 0.0 K/mm3 06/28/18 00:17 Blast Cells # 0.0 K/mm3 06/28/18 00:17 WBC Morphology Not Reportable 06/28/18 00:17 WBC Morphology TNR 06/28/18 00:17 Hypersegmented Neuts Not Reportable 06/28/18 00:17 Hyposegmented Neuts Not Reportable 06/28/18 00:17 Hypogranular Neuts Not Reportable 06/28/18 00:17 Not Reportable 06/28/18 00:17 Not Reportable 06/28/18 00:17 Not Reportable 06/28/18 00:17 Not Reportable 06/28/18 00:17 Not Reportable 06/28/18 00:17 Not Reportable 06/28/18 00:17 Appears increased 06/28/18 00:17 Not Reportable 06/28/18 00:17 Plt Clumps, EDTA Not Reportable 06/28/18 00:17 Not Reportable 06/28/18 00:17 Not Reportable 06/28/18 00:17 Not Reportable 06/28/18 00:17 Plt Morphology Comment Not Reportable 06/28/18 00:17 RBC Morphology Not Reportable 06/28/18 00:17 Dimorphic RBCs Not Reportable 06/28/18 00:17 Not Reportable 06/28/18 00:17 Not Reportable 06/28/18 00:17 Not Reportable 06/28/18 00:17 Not Reportable 06/28/18 00:17 Not Reportable 06/28/18 00:17 Not Reportable 06/28/18 00:17 Not Reportable 06/28/18 00:17 Not Reportable 06/28/18 00:17 Not Reportable 06/28/18 00:17 Few 06/28/18 00:17 Not Reportable 06/28/18 00:17 Not Reportable 06/28/18 00:17 Not Reportable 06/28/18 00:17 Not Reportable 06/28/18 00:17 Not Reportable 06/28/18 00:17 Not Reportable 06/28/18 00:17 Not Reportable 06/28/18 00:17 Not Reportable 06/28/18 00:17 Not Reportable 06/28/18 00:17 Acanthocytes (Spur) Not Reportable 06/28/18 00:17 Rouleaux Not Reportable 06/28/18 00:17 Not Reportable 06/28/18 00:17 Not Reportable 06/28/18 00:17 Not Reportable 06/28/18 00:17 Not Reportable 06/28/18 00:17 Hem Pathologist Commnt No 06/28/18 00:17 PT 15.9 Sec. (12.2-14.9) H 06/24/18 11:18 INR 1.19 (0.87-1.13) H 06/24/18 11:18 APTT 31.8 Sec. (24.2-36.6) 06/24/18 11:18 POC ABG pH 7.458 (7.35-7.45) H 06/27/18 02:04 POC ABG pCO2 42.2 (35-45) 06/27/18 02:04 POC ABG pO2 70 (80-105) L 06/27/18 02:04 POC ABG HCO3 29.9 (22-26 mml/L) 06/27/18 02:04 POC ABG Total CO2 31 (23-27mmol/L) 06/27/18 02:04 POC ABG O2 Sat 95 06/27/18 02:04 POC ABG Base Excess 6 ((-2) - (+3)mmol/L) 06/27/18 02:04 100 % 06/27/18 02:04 Sodium 146 mmol/L (137-145) H 06/27/18 09:19 Potassium 3.5 mmol/L (3.6-5.0) L 06/27/18 09:19 Chloride 105.7 mmol/L (98-107) 06/27/18 09:19 Carbon Dioxide 29 mmol/L (22-30) 06/27/18 09:19 15 mmol/L 06/27/18 09:19 BUN 13 mg/dL (7-17) 06/27/18 09:19 0.3 mg/dL (0.7-1.2) L 06/27/18 09:19 Estimated GFR > 60 ml/min 06/27/18 09:19 43 % 06/27/18 09:19 Glucose 176 mg/dL (65-100) H 06/27/18 09:19 Calcium 8.2 mg/dL (8.4-10.2) L 06/27/18 09:19 Phosphorus 2.80 mg/dL (2.5-4.5) 06/27/18 09:19 Magnesium 2.10 mg/dL (1.7-2.3) 06/27/18 09:19 0.90 mg/dL (0.1-1.2) 06/25/18 06:55 1.5 mg/dL (0-0.2) H 06/24/18 11:19 0.4 mg/dL 06/24/18 11:19 AST 16 units/L (5-40) 06/25/18 06:55 ALT 21 units/L (7-56) 06/25/18 06:55 152 units/L (35-129) H 06/25/18 06:55 25.70 mg/dL (0.00-1.30) H 06/26/18 14:12 5.3 g/dL (6.3-8.2) L 06/25/18 06:55 2.1 g/dL (3.9-5) L 06/25/18 06:55 0.7 % 06/25/18 06:55 8 units/L (13-60) L 06/24/18 11:19 Yellow (Yellow) 06/24/18 13:00 Clear (Clear) 06/24/18 13:00 6.0 (5.0-7.0) 06/24/18 13:00 Ur Specific [place] > 1.059 (1.003-1.030) H 06/24/18 13:00 30 mg/dl mg/dL (Negative) 06/24/18 13:00 Neg mg/dL (Negative) 06/24/18 13:00 Neg mg/dL (Negative) 06/24/18 13:00 Neg (Negative) 06/24/18 13:00 Neg (Negative) 06/24/18 13:00 Neg (Negative) 06/24/18 13:00 4.0 mg/dL (<2.0) 06/24/18 13:00 Ur Leukocyte Esterase Neg (Negative) 06/24/18 13:00 2.0 /HPF (0.0-6.0) 06/24/18 13:00 2.0 /HPF (0.0-6.0) 06/24/18 13:00 U Epithel Cells (Auto) 1.0 /HPF (0-13.0) 06/24/18 13:00 1+ /HPF (Negative) 06/24/18 13:00 Active Medications - Current Medications Current Medications: Generic Name Dose Route Start Last Admin Trade Name Freq PRN Reason Stop Dose Admin Acetaminophen 650 mg 06/24/18 14:00 Tylenol PO Q4H PRN Pain MILD(1-3)/Fever >100.5/LINK Albuterol 2.5 mg 06/24/18 14:00 Proventil IH Q4HRT PRN Shortness Of Breath Albuterol/Ipratropium 1 ampul 06/26/18 14:00 06/28/18 09:06 Duoneb *Not For Prn Use* IH 1 ampul Q6HRT MAURICIO Administration Enoxaparin Sodium 40 mg 06/25/18 22:00 06/27/18 21:37 Lovenox SUB-Q 40 mg QDAY@2200 MAURICIO Administration Fentanyl 50 mcg 06/24/18 15:23 Sublimaze IV Q5MIN PRN Pain , Severe (7-10) Metronidazole 500 mg in 100 mls @ 100 mls/hr 06/24/18 22:00 06/28/18 06:12 Flagyl 500 Mg/100 Ml IV 100 mls/hr Q8H MAURICIO Administration Protocol Fluconazole 200 mls @ 100 mls/hr 06/26/18 14:00 06/28/18 09:48 Diflucan IV 100 mls/hr Q24HR MAURICIO Administration Protocol Cefepime HCl 2 gm in 100 mls @ 200 mls/hr 06/27/18 14:00 06/28/18 09:53 Maxipime/Ns 2 Gm/100 Ml IV 200 mls/hr Q12HR MAURICIO Administration Protocol Vancomycin HCl 1 gm in 250 mls @ 166.667 mls/hr 06/27/18 14:00 06/28/18 03:36 Vancomycin/Ns 1 Gm/250 Ml IV 166.667 mls/hr Q12H MAURICIO Administration Potassium Chloride/Dextrose/Sod Cl 20 meq in 1,000 mls @ 100 mls/hr 06/28/18 10:00 D5w/0.45% Nacl/Kcl 20 Meq IV DIRECT MAURICIO Morphine Sulfate 0 mg 06/24/18 19:00 06/27/18 21:51 Morphine Crank Hand 30mg/30ml IV 1 cartstart DIRECT MAURICIO Administration Protocol Naloxone HCl 0.1 mg 06/24/18 18:55 Narcan 0.4 Mg/1 Ml IV Q2MIN PRN Res Rate </= 8 or 02 SAT < 92% Nicotine 14 mg 06/25/18 10:00 06/28/18 09:10 Habitrol TD 14 mg QDAY MAURICIO Administration Ondansetron HCl 4 mg 06/24/18 14:00 Zofran IV Q8H PRN Nausea And Vomiting Pantoprazole Sodium 40 mg 06/26/18 10:00 06/28/18 09:10 Protonix IV 40 mg QDAY MAURICIO Administration Phenol 1 spray 06/25/18 13:51 Chloraseptic MM PRN PRN Sore Throat Sodium Chloride 10 ml 06/24/18 22:00 06/27/18 21:38 Sodium Chloride Flush Syringe 10 Ml IV 10 ml BID MAURICIO Administration Sodium Chloride 10 ml 06/24/18 14:00 Sodium Chloride Flush Syringe 10 Ml IV PRN PRN LINE FLUSH
[2018-06-28 11:07] LABS: Hematocrit 33.9 % (30.3-42.9); Hemoglobin 11.1 gm/dl (10.1-14.3); Mean Corpuscular HGB Conc 33 % (30-34); Mean Corpuscular Volume 88 fl (79-97); Platelet Count 634 K/mm3 (140-440); Red Blood Count 3.84 M/mm3 (3.65-5.03); Red Cell Distribution Width 15.3 % (13.2-15.2)
--- NOTE | 2018-06-28 11:10 | Progress Note ---
Assessment and Plan 58 yo F s/p exploratory laparotomy, peritoneal lavage, landon's procedure POD 4 Plan: CXR worsening and patient with SOB on high flow O2. CTA not done due to IV being too small. 1. c/w NPO 2. maintenance IVF - decrease rate. 3. IV abx per ID 4. OOB/ambulate. PT consulted 5. IS/pulm toilet. 6. DVT/GI ppx 7. ASSESSMENT RN for pain management 8. [place] drain 9. await bowel function 10. supplemental O2, nebs 11. continue wound vac 12. monitor lytes and replace as needed 13. pulm consulted - D/W Dr. Mcrae - patient to be upgraded to ICU and pos sibility of intubation discussed with her Agree with transfer to ICU. Appreciate clinical application consultant and hospitalist recommendations. D/W Dr. Ferris Thank you, please call with questions. Subjective Date of service: 06/28/18 Narrative: Pt seen and examined. Denies abdominal pain. No n/v. No f/c. Having persistent shortness of breath. Objective Vital Signs - 12hr 06/27/18 06/28/18 06/28/18 23:30 00:02 02:28 Temperature 98.5 F Pulse Rate 110 H 107 H Pulse Rate [ Anterior Bilateral Throughout] Respiratory 18 20 Rate Respiratory Rate [Anterior Bilateral Throughout] Blood Pressure 145/90 [Left] O2 Sat by Pulse 94 94 Oximetry 06/28/18 06/28/18 06/28/18 02:35 02:47 03:51 Temperature Pulse Rate Pulse Rate [ 109 H 99 H Anterior Bilateral Throughout] Respiratory 20 Rate Respiratory 22 20 Rate [Anterior Bilateral Throughout] Blood Pressure [Left] O2 Sat by Pulse 93 Oximetry 06/28/18 06/28/18 06/28/18 04:06 04:08 04:28 Temperature 97.4 F L Pulse Rate 106 H 107 H Pulse Rate [ Anterior Bilateral Throughout] Respiratory 16 18 Rate Respiratory Rate [Anterior Bilateral Throughout] Blood Pressure 128/64 [Left] O2 Sat by Pulse 93 4 L Oximetry 06/28/18 06/28/18 06/28/18 09:11 09:21 09:25 Temperature Pulse Rate Pulse Rate [ 130 H 118 H Anterior Bilateral Throughout] Respiratory Rate Respiratory 23 22 Rate [Anterior Bilateral Throughout] Blood Pressure [Left] O2 Sat by Pulse 93 Oximetry - General physical appearance Narrative Exam: Gen: AAOx3. moderate respiratory distress ENt; NGT with scant clear drainage CV: s1, s2+ Resp; on ventimask, no audible wheezes Abd: soft, NT, ND. ostomy pink without air or stool. Midline incision with vac in place, good seal. [place] drain serous Ext: no c/c/e - Labs 06/28/18 09:56 06/28/18 09:56
[2018-06-28 11:15] LABS: Calcium 8.2 mg/dL (8.4-10.2); Hemolysis Index 5
--- NOTE | 2018-06-28 11:33 | Event Note ---
Date: 06/28/18 Asked by RT to come evaluate this patient. She is on my list for consults today. Transfer orders were placed for IMCU but RT felt she needed ICU. I have evaluated the patient at bedside. POST-OP from [facility]. CXR shows bilateral alveolar infiltrates and worsening hypoxemia for the last 48 hours. Given her smoking history and possible COPD she is high risk for intubation. Will change transfer order to ICU. Surgery was at the bedside and agreed with my assessment.
[2018-06-28 11:51] LABS: BUN/Creatinine Ratio 33; Blood Urea Nitrogen 10 mg/dL (7-17)
--- NOTE | 2018-06-28 11:57 | Consultation ---
History of Present Illness Consult date: 06/28/18 Requesting physician: CHITRA WASHINGTON Reason for consult: hypoxemia History of present illness: 58 y/o female, POD4 from Hartmans pouch secondary to perforated viscous, now with acute hypoxic respiratory failure and acute changes to CXR. Patient has been here several days receiving large amounts of volume. Repeat CXR shows pulmonary edema. Given lasix but given work of breathing agree with transfer to ICU for closer monitoring. Past History Past Medical History: other (malnutrition) Past Surgical History: No surgical history, Other (reviewed) Social history: single, smoking Family history: no significant family history (reviewed) Medications and Allergies Allergies Allergy/AdvReac Type Severity Reaction Status Date / Time No Known Allergies Allergy Unverified 06/24/18 10:41 Home Medications Medication Instructions Recorded Confirmed Last Taken Type Loperamide [Imodium] 2 mg PO Q6H 30 Days #120 capsule 07/23/18 Unknown Rx ALBUTEROL Inhaler (OR & NICU) 2 puff IH QID PRN 30 Days 07/24/18 Unknown Rx [ProAir HFA Inhaler] inhalation Budesonide/Formoterol Fumarate 10.2 gm IH BID 30 Days hfa.aer.ad 07/24/18 Unknown Rx [Symbicort 160-4.5 Mcg Inhaler] Metoprolol [Lopressor TAB] 12.5 mg PO BID #30 tablet 07/24/18 Unknown Rx Simethicone 80 mg PO BID #30 tab.chew 07/24/18 Unknown Rx Warfarin [Coumadin] 1 mg PO DAILY@1700 #30 tablet 07/24/18 Unknown Rx oxyCODONE /ACETAMINOPHEN [Percocet 2 tab PO Q6H PRN #14 tablet 07/24/18 Unknown Rx 5/325 mg] Active Meds: Active Medications Acetaminophen (Tylenol) 650 mg PO Q4H PRN PRN Reason: Pain MILD(1-3)/Fever >100.5/LINK Albuterol (Proventil) 2.5 mg IH Q4HRT PRN PRN Reason: Shortness Of Breath Albuterol/Ipratropium (Duoneb *Not For Prn Use*) 1 ampul IH Q6HRT [facility] Last Admin: 06/28/18 09:06 Dose: 1 ampul Documented by: Enoxaparin Sodium (Lovenox) 40 mg SUB-Q QDAY@2200 [facility] Last Admin: 06/27/18 21:37 Dose: 40 mg Documented by: Fentanyl (Sublimaze) 50 mcg IV Q5MIN PRN PRN Reason: Pain , Severe (7-10) Metronidazole (Flagyl 500 Mg/100 Ml) 500 mg in 100 mls @ 100 mls/hr IV Q8H [facility]; Protocol Last Admin: 06/28/18 06:12 Dose: 100 mls/hr Documented by: Fluconazole (Diflucan) 200 mls @ 100 mls/hr IV Q24HR [facility]; Protocol Last Admin: 06/28/18 09:48 Dose: 100 mls/hr Documented by: Cefepime HCl (Maxipime/Ns 2 Gm/100 Ml) 2 gm in 100 mls @ 200 mls/hr IV Q12HR [facility]; Protocol Last Admin: 06/28/18 09:53 Dose: 200 mls/hr Documented by: Vancomycin HCl (Vancomycin/Ns 1 Gm/250 Ml) 1 gm in 250 mls @ 166.667 mls/hr IV Q12H [facility] Last Admin: 06/28/18 03:36 Dose: 166.667 mls/hr Documented by: Potassium Chloride/Dextrose/Sod Cl (D5w/0.45% Nacl/Kcl 20 Meq) 20 meq in 1,000 mls @ 100 mls/hr IV DIRECT MAURICIO Morphine Sulfate (Morphine Shirt Folding Machine Operator 30mg/30ml) 0 mg IV DIRECT MAURICIO; Protocol Last Admin: 06/27/18 21:51 Dose: 1 cartstart Documented by: Naloxone HCl (Narcan 0.4 Mg/1 Ml) 0.1 mg IV Q2MIN PRN PRN Reason: Res Rate </= 8 or 02 SAT < 92% Nicotine (Habitrol) 14 mg TD QDAY [facility] Last Admin: 06/28/18 09:10 Dose: 14 mg Documented by: Ondansetron HCl (Zofran) 4 mg IV Q8H PRN PRN Reason: Nausea And Vomiting Pantoprazole Sodium (Protonix) 40 mg IV QDAY [facility] Last Admin: 06/28/18 09:10 Dose: 40 mg Documented by: Phenol (Chloraseptic) 1 spray MM PRN PRN PRN Reason: Sore Throat Sodium Chloride (Sodium Chloride Flush Syringe 10 Ml) 10 ml IV BID [facility] Last Admin: 06/27/18 21:38 Dose: 10 ml Documented by: Sodium Chloride (Sodium Chloride Flush Syringe 10 Ml) 10 ml IV PRN PRN PRN Reason: LINE FLUSH Physical Examination Vital signs: Vital Signs Temp Pulse Resp BP Pulse Ox 97.8 F 140 H 20 145/118 97 06/24/18 10:41 06/24/18 10:41 06/24/18 10:41 06/24/18 10:41 06/24/18 10:41 General appearance: alert, appears uncomfortable, other (mild distress) Eyes: non-icteric ENT: oropharynx moist Neck: supple Effort: mildly labored Ascultation: Bilateral: wheezes, rales, rhonchi Percussion: Bilateral: not dull Tactile fremitus: Bilateral: diminished Cardiovascular: regular rate and rhythm Gastrointestinal: other (post surgical changes) Extremities: no cyanosis, no edema, pink and warm, pulses normal Results - Laboratory Findings CBC and BMP: 07/17/18 03:18 07/17/18 03:18 ABG POC ABG pH 7.458 (7.35-7.45) H 06/27/18 02:04 POC ABG pCO2 42.2 (35-45) 06/27/18 02:04 POC ABG pO2 70 (80-105) L 06/27/18 02:04 POC ABG HCO3 29.9 (22-26 mml/L) 06/27/18 02:04 POC ABG Total CO2 31 (23-27mmol/L) 06/27/18 02:04 POC ABG O2 Sat 95 06/27/18 02:04 PT/INR, D-dimer PT 15.9 Sec. (12.2-14.9) H 06/24/18 11:18 INR 1.19 (0.87-1.13) H 06/24/18 11:18 Abnormal lab findings: Abnormal Labs 06/24/18 06/24/18 06/24/18 11:18 11:19 11:19 WBC 19.0 H RBC MCHC 35 H RDW Plt Count 457 H Seg Neuts % (Manual) 88.0 H Lymphocytes % (Manual) 2.0 L Seg Neutrophils # Man 16.7 H Lymphocytes # (Manual) 0.4 L Monocytes # (Manual) PT 15.9 H INR 1.19 H POC ABG pH POC ABG pO2 Sodium 136 L Potassium 2.8 L* Chloride 96.7 L Carbon Dioxide Creatinine 0.4 L Glucose 146 H Calcium Total Bilirubin 1.90 H Direct Bilirubin 1.5 H Alkaline Phosphatase 264 H C-Reactive Protein NT-Pro-B Natriuret Pep Total Protein Albumin 3.0 L Lipase 8 L Ur Specific [place] 06/24/18 06/24/18 06/25/18 13:00 19:47 06:55 WBC 18.3 H RBC MCHC 35 H RDW Plt Count 481 H Seg Neuts % (Manual) 88.0 H Lymphocytes % (Manual) 4.0 L Seg Neutrophils # Man 16.1 H Lymphocytes # (Manual) 0.7 L Monocytes # (Manual) PT INR POC ABG pH POC ABG pO2 Sodium Potassium 3.5 L D Chloride Carbon Dioxide 21 L Creatinine 0.3 L Glucose 166 H Calcium 7.4 L D Total Bilirubin Direct Bilirubin Alkaline Phosphatase C-Reactive Protein NT-Pro-B Natriuret Pep Total Protein Albumin Lipase Ur Specific [place] > 1.059 H 06/25/18 06/26/18 06/26/18 06:55 11:54 11:54 WBC 19.9 H RBC 3.48 L MCHC RDW Plt Count 583 H Seg Neuts % (Manual) Lymphocytes % (Manual) Seg Neutrophils # Man Lymphocytes # (Manual) Monocytes # (Manual) PT INR POC ABG pH POC ABG pO2 Sodium 146 H Potassium 3.5 L Chloride 108.3 H 109.9 H Carbon Dioxide Creatinine 0.4 L 0.3 L Glucose 159 H 153 H Calcium 7.7 L 8.2 L Total Bilirubin Direct Bilirubin Alkaline Phosphatase 152 H C-Reactive Protein NT-Pro-B Natriuret Pep Total Protein 5.3 L Albumin 2.1 L Lipase Ur Specific [place] 06/26/18 06/26/18 06/27/18 14:12 20:37 02:04 WBC RBC MCHC RDW Plt Count Seg Neuts % (Manual) Lymphocytes % (Manual) Seg Neutrophils # Man Lymphocytes # (Manual) Monocytes # (Manual) PT INR POC ABG pH 7.471 H 7.458 H POC ABG pO2 74 L 70 L Sodium Potassium Chloride Carbon Dioxide Creatinine Glucose Calcium Total Bilirubin Direct Bilirubin Alkaline Phosphatase C-Reactive Protein 25.70 H NT-Pro-B Natriuret Pep Total Protein Albumin Lipase Ur Specific [place] 06/27/18 06/27/18 06/28/18 09:19 11:50 00:17 WBC 24.5 H 37.2 H RBC MCHC RDW 15.4 H Plt Count 583 H 657 H Seg Neuts % (Manual) 98.0 H 88.5 H Lymphocytes % (Manual) 1.0 L 4.0 L Seg Neutrophils # Man 24.0 H 32.9 H Lymphocytes # (Manual) 0.2 L Monocytes # (Manual) 1.1 H PT INR POC ABG pH POC ABG pO2 Sodium 146 H Potassium 3.5 L Chloride Carbon Dioxide Creatinine 0.3 L Glucose 176 H Calcium 8.2 L Total Bilirubin Direct Bilirubin Alkaline Phosphatase C-Reactive Protein NT-Pro-B Natriuret Pep Total Protein Albumin Lipase Ur Specific [place] 06/28/18 06/28/18 06/28/18 09:56 09:56 09:56 WBC 37.8 H RBC MCHC RDW 15.3 H Plt Count 634 H Seg Neuts % (Manual) Lymphocytes % (Manual) Seg Neutrophils # Man Lymphocytes # (Manual) Monocytes # (Manual) PT INR POC ABG pH POC ABG pO2 Sodium 146 H Potassium Chloride Carbon Dioxide 31 H Creatinine 0.3 L Glucose 142 H Calcium 8.2 L Total Bilirubin Direct Bilirubin Alkaline Phosphatase C-Reactive Protein NT-Pro-B Natriuret Pep 1572 H Total Protein Albumin Lipase Ur Specific [place] - Diagnostic Findings Chest x-ray: image reviewed Assessment and Plan 58 y/o female with known COPD, POD4 from Posey's pouch, now volume overloaded and in acute respiratory failure. 1. Agree with transfer to ICU 2. BIpap PRN and QHS 3. Agree with lasix 4. Hold on steroids for right now 5. BID pulmicort and brovana therapy 6. Discussed the possibility of intubation if needed and patient is in agreement.
[2018-06-28] MEDS: KCL 10MEQ/100ML 10 MEQ/100 ML BAG IV SCH ×4 (14:25→17:25)
--- NOTE | 2018-06-28 14:27 | XRay Report ---
PROCEDURE: XR CHEST 1V AP TECHNIQUE: Chest radiograph single view. HISTORY: acute resp failure, infiltrates COMPARISONS: None . FINDINGS: Heart: Heart size normal. Mediastinum/Vessels: Trachea midline. Lungs/Pleural space: Diffuse bilateral patchy airspace disease. Infiltrates greatest over the lower lobes. No pneumothorax. No effusion. Bony thorax: No acute osseous abnormality. Life support devices: NG tube in place. Side port is in the distal esophagus. Advancement 10 cm recom mended. IMPRESSION: Extensive bilateral airspace disease No sizable effusion Side-port NG tube distal esophagus. Advancement recommended as above This document is electronically signed by Pito Harden MD., Jun 28 2018 02:24:54 PM ET
[2018-06-28] MEDS: SODIUM CHLORIDE FLUSH SYRINGE 10 ML IV SCH ×2 (14:58→23:35)
[2018-06-28] MEDS: VANCOMYCIN 750 MG in NACL 0.9% 250ML 250 ML IV SCH (20:00)
[2018-06-28] MEDS: DILAUDID IV PRN (21:20)
[2018-06-28 21:57] LABS: BUN/Creatinine Ratio 37; Blood Urea Nitrogen 11 mg/dL (7-17); Calcium 8.2 mg/dL (8.4-10.2); Hemolysis Index 15
[2018-06-28] MEDS: LOVENOX SUB-Q SCH (22:10)
--- NOTE | 2018-06-28 23:08 | Cat Scan Report ---
PROCEDURE: CT ANGIO CHEST TECHNIQUE: Computerized tomographic angiography of the chest was performed after the IV injection of iodinated nonionic contrast including image processing. The image data was postprocessed using 2-di mensional multiplanar reformatted (MPR) and 3-dimensional (MIP and/or volume rendered) techniques. Au tomated exposure control, adjustment of mA and/or kV according to patient size, or iterative reconstr uction dose optimization techniques were utilized. CT DOSE LENGTH PRODUCT: 572.3 mGycm HISTORY: Pneumonia shortness of breath COMPARISONS: Chest radiograph same date . FINDINGS: Heart and pericardium: Normal. Thoracic aorta: Normal. Pulmonary vasculature: There is no evidence of pulmonary arterial emboli. Lymph nodes: No enlarged thoracic lymph nodes. Lungs: Scattered infiltrates identified throughout both lungs, this is most prominent in the right lower lung.. Pleural space: Slight bilateral effusions. No pneumothorax. Musculoskeletal structures: No significant abnormality. Upper abdominal structures: The nasogastric tube ends in the upper stomach.. IMPRESSION: There are scattered infiltrates identified in both lungs, this is most prominent in the right lower lung. Findings consistent with pneumonia. Slight bilateral effusions. There is no evidence of pulmonary arterial emboli . This document is electronically signed by Aubrie Melendrez DO., Jun 28 2018 11:05:58 PM ET
[2018-06-29 01:20] LABS: Hematocrit 34.2 % (30.3-42.9); Hemoglobin 11.4 gm/dl (10.1-14.3); Mean Corpuscular HGB Conc 33 % (30-34); Mean Corpuscular Volume 88 fl (79-97); Platelet Count 681 K/mm3 (140-440); Red Blood Count 3.87 M/mm3 (3.65-5.03); Red Cell Distribution Width 15.1 % (13.2-15.2)
[2018-06-29] MEDS: DUONEB *Not for PRN Use IH SCH ×4 (01:57→20:43)
[2018-06-29] MEDS: ZOFRAN IV PRN (04:00)
[2018-06-29] MEDS: FLAGYL 500 MG/100 ML 500 MG/100 ML BAG IV SCH ×3 (05:11→21:50)
[2018-06-29] MEDS: VANCOMYCIN 750 MG in NACL 0.9% 250ML 250 ML IV SCH ×2 (05:14→18:12)
[2018-06-29 05:32] LABS: Basophils % (Manual) 0 % (0.0-1.8); Eosinophils % (Manual) 0 % (0.0-4.3); Monocytes % (Manual) 1.5 % (0.0-7.3); Total Cells Counted 200
[2018-06-29 05:33] LABS: Hypersegmented Neutrophils Few; Platelet Estimate Appears Increased
[2018-06-29 06:10] LABS: Hematocrit 33.1 % (30.3-42.9); Hemoglobin 11.3 gm/dl (10.1-14.3); Mean Corpuscular HGB Conc 34 % (30-34); Mean Corpuscular Volume 88 fl (79-97); Platelet Count 661 K/mm3 (140-440); Red Blood Count 3.75 M/mm3 (3.65-5.03); Red Cell Distribution Width 15.1 % (13.2-15.2)
[2018-06-29 06:21] LABS: BUN/Creatinine Ratio 40; Blood Urea Nitrogen 12 mg/dL (7-17); Calcium 8.2 mg/dL (8.4-10.2); Hemolysis Index 5
[2018-06-29] MEDS: KCL 10MEQ/100ML 10 MEQ/100 ML BAG IV SCH ×8 (07:43→19:07)
[2018-06-29] MEDS ORDERED: D5W/0.45% NACL/KCL 40 MEQ 40 MEQ/1,000 ML BAG IV SCH (08:00)
--- NOTE | 2018-06-29 08:16 | Progress Note ---
Assessment and Plan Cultures: 06/26/2018 Blood culture no growth so far Assessment: 58 y/o female with history of HTN, tobacco dependence admitted on 06/24/2018 due to a week history of severe abdominal pain, constipation and nausea. 1) Sepsis: still low grade fever and leukocytosis. Etiology most likely peritonitis from diverticular perforation/abscess +/- enterocolitis +/- partial SBO +/- pneumonia. 2) Acute fecal peritonitis from diverticular perforation/abscess: CT abdomen showed suspect diffuse moderate to severe enterocolitis with multiple air-fluid levels. Possible small bowel obstruction or high-grade incomplete obstruction. Transition point is not clearly identified but suspected in the pelvis. Small pockets of free air suggests perforation which could be related to the sigmoid colon which demonstrates diverticulosis/diverticulitis. Small amount of free fluid in the abdomen. Small to moderate fluid in the pelvis particularly around the sigmoid colon may represent developing abscesses. She was taken to the OR on 06/24/2018 for Exploratory laparotomy, Ezequiel's for perforated sigmoid div erticulitis with purulent peritonitis. No OR cultures available. CRP 25. 3) Bilateral pneumonia: ?aspiration v/s HAP on cefepime and vancomycin. CTA showed scattered infiltrates identified in both lungs, this is most prominent in the right lower lung, slight bilateral effusions, no evidence of pulmonary arterial emboli . 4) Acute hypoxemic resp failure: on venti mask from pneumonia +/- COPD Recommendations: - follow-up blood cultures - recheck C-reactive protein (CRP) - continue flagyl 500mg IV every 8 hours, D5 - continue fluconazole 200 ml IV every 24 hours, D4 - continue Cefepime and Vancomycin to cover HAP D3 Will follow. Cira Villanueva MD Infectious Diseases Production Technologist [facility], [place], [facility] M [phone] O [phone] Subjective Date of service: 06/29/18 Principal diagnosis: peritonitis/penumonia Interval history: Remains SOB on venti mask 40%, talking, tmax 100.2. ROS limited Objective - Exam Narrative Exam: General appearance: Alert in mild resp distress on venti mask 40% Eyes: anicteric sclerae, moist conjunctivae; no lid-lag; PERRLA HENT: Atraumatic; oropharynx limited Neck: Trachea midline; supple, no thyromegaly or lymphadenopathy Lungs: bilateral rhonchi CV: RRR, no murmurs Abdomen: Soft, midline abdomen with wound VAC, osteomy and drain Extremities: No peripheral edema or extremity lymphadenopathy Skin: Normal temperature, turgor and texture; no rash, ulcers or subcutaneous nodules Psych: no agitated. Neuro: alert and oriented x 3. Moving all extermities - Constitutional Vitals: Vital Signs Temp Pulse Resp BP Pulse Ox 98.9 F 124 H 35 H 167/84 96 06/29/18 04:00 06/29/18 02:11 06/29/18 02:11 06/29/18 00:37 06/29/18 02:38 Temperature -Last 24 Hours Temperature 98.9 F Temperature 99.4 F Temperature 98.9 F Temperature 100.2 F Temperature 97.9 F Temperature 97.5 F - Labs CBC & Chem 7: 06/29/18 05:58 06/29/18 05:58 Labs: Abnormal lab results 06/28/18 06/28/18 06/28/18 Range/Units 09:56 09:56 09:56 WBC 37.8 H (4.5-11.0) K/mm3 RDW 15.3 H (13.2-15.2) % Plt Count 634 H (140-440) K/mm3 Seg Neuts % (Manual) (40.0-70.0) % Lymphocytes % (Manual) (13.4-35.0) % Seg Neutrophils # Man (1.8-7.7) K/mm3 Lymphocytes # (Manual) (1.2-5.4) K/mm3 POC ABG pH (7.35-7.45) POC ABG pCO2 (35-45) POC ABG pO2 (80-105) Sodium 146 H (137-145) mmol/L Potassium 2.8 L* (3.6-5.0) mmol/L Carbon Dioxide 31 H (22-30) mmol/L Creatinine 0.3 L (0.7-1.2) mg/dL Glucose 142 H (65-100) mg/dL Calcium 8.2 L (8.4-10.2) mg/dL NT-Pro-B Natriuret Pep 1572 H (0-900) pg/mL 06/28/18 06/28/18 06/29/18 Range/Units 13:19 21:24 00:57 WBC 28.9 H (4.5-11.0) K/mm3 RDW (13.2-15.2) % Plt Count 681 H (140-440) K/mm3 Seg Neuts % (Manual) 93.0 H (40.0-70.0) % Lymphocytes % (Manual) 1.5 L (13.4-35.0) % Seg Neutrophils # Man 26.9 H (1.8-7.7) K/mm3 Lymphocytes # (Manual) 0.4 L (1.2-5.4) K/mm3 POC ABG pH 7.470 H (7.35-7.45) POC ABG pCO2 53.0 H (35-45) POC ABG pO2 120 H (80-105) Sodium (137-145) mmol/L Potassium 3.0 L (3.6-5.0) mmol/L Carbon Dioxide 33 H (22-30) mmol/L Creatinine 0.3 L (0.7-1.2) mg/dL Glucose 116 H (65-100) mg/dL Calcium 8.2 L (8.4-10.2) mg/dL NT-Pro-B Natriuret Pep (0-900) pg/mL 06/29/18 06/29/18 Range/Units 05:58 05:58 WBC 25.8 H (4.5-11.0) K/mm3 RDW (13.2-15.2) % Plt Count 661 H (140-440) K/mm3 Seg Neuts % (Manual) (40.0-70.0) % Lymphocytes % (Manual) (13.4-35.0) % Seg Neutrophils # Man (1.8-7.7) K/mm3 Lymphocytes # (Manual) (1.2-5.4) K/mm3 POC ABG pH (7.35-7.45) POC ABG pCO2 (35-45) POC ABG pO2 (80-105) Sodium (137-145) mmol/L Potassium 2.7 L* (3.6-5.0) mmol/L Carbon Dioxide 35 H (22-30) mmol/L Creatinine 0.3 L (0.7-1.2) mg/dL Glucose 132 H (65-100) mg/dL Calcium 8.2 L (8.4-10.2) mg/dL NT-Pro-B Natriuret Pep (0-900) pg/mL
[2018-06-29] MEDS: DILAUDID IV PRN (08:21)
[2018-06-29] MEDS ORDERED: LASIX IV ONE (08:30)
--- NOTE | 2018-06-29 09:43 | Progress Note ---
Assessment and Plan Assessment and plan: 58 year old woman who presented to the hospital with generalized abdominal pain. Past medical history includes tobacco abuse, current everyday smoker Diagnosis Acute hypoxic respiratory failure , now on VM 15 l/min in ICU. Transferred to ICU from [address] [place] [address] yesterday 06/28 Severe enterocolitis Purulent peritonitis Sigmoid diverticulitis with perforation of distal sigmoid colon hypokalemia, severe hyponatremia Moderate malnutrition Nicotine dependence Sepsis Acute hypoxic respiratory failure Leukocytosis worse, may be sepsis versus solumedrol given Plan Pulmonology following Give Lasix 40mg iv stat CXR yesterday worse, bilat infiltrates Status post ex lap, peritoneal lavage, Posey's procedure on 06/24 Electrolytes have been replaced abx per ID Obtain CT Chest lasix, oxygen supplement, breathing rx as needed DVT prophylaxis lovenox Full code status History Interval history: Patient transfered to ICU yesterday because of acute resp failure Less Abdominal pain Shortness of breath improved Hospitalist Physical - Physical exam Narrative exam: Gen: Mild resp distress, lying in bed, HEENT: Normocephalic, atraumatic Neck: supple, no JVD Heart: S1 and S2 reg, no murmurs, rubs or gallop Lungs: Bilateral crackles, no wheeze Abd: soft, mild tender, mild distended, midline wound, ostomy pink, surgical drain, Ext:No edema, no clubbing, no cyanosis Neuro: Awake,alert, oriented x 3, moves all ext, non focal Psych:Normal mood - Constitutional Vitals: Temp Pulse Resp BP Pulse Ox 98.9 F 118 H 30 H 167/84 92 06/29/18 04:00 06/29/18 08:48 06/29/18 08:48 06/29/18 00:37 06/29/18 08:57 Results - Labs CBC & Chem 7: 06/29/18 05:58 06/29/18 05:58 Labs: Laboratory Last Values WBC 25.8 K/mm3 (4.5-11.0) H 06/29/18 05:58 RBC 3.75 M/mm3 (3.65-5.03) 06/29/18 05:58 Hgb 11.3 gm/dl (10.1-14.3) 06/29/18 05:58 Hct 33.1 % (30.3-42.9) 06/29/18 05:58 MCV 88 fl (79-97) 06/29/18 05:58 MCH 30 pg (28-32) 06/29/18 05:58 MCHC 34 % (30-34) 06/29/18 05:58 RDW 15.1 % (13.2-15.2) 06/29/18 05:58 Plt Count 661 K/mm3 (140-440) H 06/29/18 05:58 Add Manual Diff Complete 06/29/18 00:57 Total Counted 200 06/29/18 00:57 Seg Neutrophils % Assembler Engine 06/29/18 00:57 Seg Neuts % (Manual) 93.0 % (40.0-70.0) H 06/29/18 00:57 3.5 % 06/29/18 00:57 1.5 % (13.4-35.0) L 06/29/18 00:57 Reactive Lymphs % (Man) 0.5 % 06/29/18 00:57 1.5 % (0.0-7.3) 06/29/18 00:57 0 % (0.0-4.3) 06/29/18 00:57 0 % (0.0-1.8) 06/29/18 00:57 0 % 06/29/18 00:57 0 % 06/29/18 00:57 0 % 06/29/18 00:57 0 % 06/29/18 00:57 Nucleated RBC % Not Reportable 06/29/18 00:57 Seg Neutrophils # Man 26.9 K/mm3 (1.8-7.7) H 06/29/18 00:57 Band Neutrophils # 1.0 K/mm3 06/29/18 00:57 0.4 K/mm3 (1.2-5.4) L 06/29/18 00:57 Abs React Lymphs (Man) 0.1 K/mm3 06/29/18 00:57 0.4 K/mm3 (0.0-0.8) 06/29/18 00:57 0.0 K/mm3 (0.0-0.4) 06/29/18 00:57 0.0 K/mm3 (0.0-0.1) 06/29/18 00:57 0.0 K/mm3 06/29/18 00:57 0.0 K/mm3 06/29/18 00:57 0.0 K/mm3 06/29/18 00:57 Blast Cells # 0.0 K/mm3 06/29/18 00:57 WBC Morphology Not Reportable 06/29/18 00:57 WBC Morphology TNR 06/29/18 00:57 Hypersegmented Neuts Few 06/29/18 00:57 Hyposegmented Neuts Not Reportable 06/29/18 00:57 Hypogranular Neuts Not Reportable 06/29/18 00:57 Not Reportable 06/29/18 00:57 Not Reportable 06/29/18 00:57 Not Reportable 06/29/18 00:57 Not Reportable 06/29/18 00:57 Not Reportable 06/29/18 00:57 Not Reportable 06/29/18 00:57 Appears increased 06/29/18 00:57 Not Reportable 06/29/18 00:57 Plt Clumps, EDTA Not Reportable 06/29/18 00:57 Not Reportable 06/29/18 00:57 Not Reportable 06/29/18 00:57 Not Reportable 06/29/18 00:57 Plt Morphology Comment Not Reportable 06/29/18 00:57 RBC Morphology Not Reportable 06/29/18 00:57 Dimorphic RBCs Not Reportable 06/29/18 00:57 Not Reportable 06/29/18 00:57 Not Reportable 06/29/18 00:57 Not Reportable 06/29/18 00:57 Not Reportable 06/29/18 00:57 Not Reportable 06/29/18 00:57 Not Reportable 06/29/18 00:57 Not Reportable 06/29/18 00:57 Not Reportable 06/29/18 00:57 Not Reportable 06/29/18 00:57 Not Reportable 06/29/18 00:57 Not Reportable 06/29/18 00:57 Not Reportable 06/29/18 00:57 Not Reportable 06/29/18 00:57 Not Reportable 06/29/18 00:57 Not Reportable 06/29/18 00:57 Not Reportable 06/29/18 00:57 Not Reportable 06/29/18 00:57 Not Reportable 06/29/18 00:57 Not Reportable 06/29/18 00:57 Acanthocytes (Spur) Not Reportable 06/29/18 00:57 Rouleaux Not Reportable 06/29/18 00:57 Not Reportable 06/29/18 00:57 Not Reportable 06/29/18 00:57 Not Reportable 06/29/18 00:57 Not Reportable 06/29/18 00:57 Hem Pathologist Commnt No 06/29/18 00:57 PT 15.9 Sec. (12.2-14.9) H 06/24/18 11:18 INR 1.19 (0.87-1.13) H 06/24/18 11:18 APTT 31.8 Sec. (24.2-36.6) 06/24/18 11:18 POC ABG pH 7.470 (7.35-7.45) H 06/28/18 13:19 POC ABG pCO2 53.0 (35-45) H 06/28/18 13:19 POC ABG pO2 120 (80-105) H 06/28/18 13:19 POC ABG HCO3 38.6 (22-26 mml/L) 06/28/18 13:19 POC ABG Total CO2 40 (23-27mmol/L) 06/28/18 13:19 POC ABG O2 Sat 99 06/28/18 13:19 POC ABG Base Excess 15 ((-2) - (+3)mmol/L) 06/28/18 13:19 100 % 06/28/18 13:19 Sodium 145 mmol/L (137-145) 06/29/18 05:58 Potassium 2.7 mmol/L (3.6-5.0) L* 06/29/18 05:58 Chloride 100.3 mmol/L (98-107) 06/29/18 05:58 Carbon Dioxide 35 mmol/L (22-30) H 06/29/18 05:58 12 mmol/L 06/29/18 05:58 BUN 12 mg/dL (7-17) 06/29/18 05:58 0.3 mg/dL (0.7-1.2) L 06/29/18 05:58 Estimated GFR > 60 ml/min 06/29/18 05:58 40 % 06/29/18 05:58 Glucose 132 mg/dL (65-100) H 06/29/18 05:58 Calcium 8.2 mg/dL (8.4-10.2) L 06/29/18 05:58 Phosphorus 3.00 mg/dL (2.5-4.5) 06/29/18 05:58 Magnesium 1.90 mg/dL (1.7-2.3) 06/29/18 05:58 0.90 mg/dL (0.1-1.2) 06/25/18 06:55 1.5 mg/dL (0-0.2) H 06/24/18 11:19 0.4 mg/dL 06/24/18 11:19 AST 16 units/L (5-40) 06/25/18 06:55 ALT 21 units/L (7-56) 06/25/18 06:55 152 units/L (35-129) H 06/25/18 06:55 25.70 mg/dL (0.00-1.30) H 06/26/18 14:12 NT-Pro-B Natriuret Pep 1572 pg/mL (0-900) H 06/28/18 09:56 5.3 g/dL (6.3-8.2) L 06/25/18 06:55 2.1 g/dL (3.9-5) L 06/25/18 06:55 0.7 % 06/25/18 06:55 8 units/L (13-60) L 06/24/18 11:19 Yellow (Yellow) 06/24/18 13:00 Clear (Clear) 06/24/18 13:00 6.0 (5.0-7.0) 06/24/18 13:00 Ur Specific Lillie > 1.059 (1.003-1.030) H 06/24/18 13:00 30 mg/dl mg/dL (Negative) 06/24/18 13:00 Neg mg/dL (Negative) 06/24/18 13:00 Neg mg/dL (Negative) 06/24/18 13:00 Neg (Negative) 06/24/18 13:00 Neg (Negative) 06/24/18 13:00 Neg (Negative) 06/24/18 13:00 4.0 mg/dL (<2.0) 06/24/18 13:00 Ur Leukocyte Esterase Neg (Negative) 06/24/18 13:00 2.0 /HPF (0.0-6.0) 06/24/18 13:00 2.0 /HPF (0.0-6.0) 06/24/18 13:00 U Epithel Cells (Auto) 1.0 /HPF (0-13.0) 06/24/18 13:00 1+ /HPF (Negative) 06/24/18 13:00 Active Medications - Current Medications Current Medications: Generic Name Dose Route Start Last Admin Trade Name Freq PRN Reason Stop Dose Admin Acetaminophen 650 mg 06/24/18 14:00 Tylenol PO Q4H PRN Pain MILD(1-3)/Fever >100.5/LINK Albuterol 2.5 mg 06/24/18 14:00 Proventil IH Q4HRT PRN Shortness Of Breath Albuterol/Ipratropium 1 ampul 06/26/18 14:00 06/29/18 08:51 Duoneb *Not For Prn Use* IH 1 ampul Q6HRT MAURICIO Administration Enoxaparin Sodium 40 mg 06/25/18 22:00 06/28/18 22:10 Lovenox SUB-Q 40 mg QDAY@2200 MAURICIO Administration Hydromorphone HCl 0.5 mg 06/28/18 20:52 06/29/18 08:21 Dilaudid IV 06/29/18 11:00 0.5 mg Q3H PRN Administration Pain , Severe (7-10) Metronidazole 500 mg in 100 mls @ 100 mls/hr 06/24/18 22:00 06/29/18 05:11 Flagyl 500 Mg/100 Ml IV 100 mls/hr Q8H MAURICIO Administration Protocol Fluconazole 200 mls @ 100 mls/hr 06/26/18 14:00 06/28/18 09:48 Diflucan IV 100 mls/hr Q24HR MAURICIO Administration Protocol Cefepime HCl 2 gm in 100 mls @ 200 mls/hr 06/27/18 14:00 06/28/18 22:05 Maxipime/Ns 2 Gm/100 Ml IV 200 mls/hr Q12HR MAURICIO Administration Protocol Vancomycin HCl 750 mg/ Sodium 265 mls @ 166.667 mls/hr 06/28/18 18:00 06/29/18 05:14 Chloride IV 166.667 mls/hr Q12HR@0600,1800 MAURICIO Administration Potassium Chloride/Dextrose/Sod Cl 40 meq in 1,000 mls @ 75 mls/hr 06/29/18 08:00 06/29/18 08:28 D5w/0.45% Nacl/Kcl 40 Meq IV 75 mls/hr DIRECT MAURICIO Administration Potassium Chloride 10 meq in 100 mls @ 100 mls/hr 06/29/18 08:00 06/29/18 08:31 Kcl 10meq/100ml IV 06/29/18 11:59 100 mls/hr Q1H MAURICIO Administration Morphine Sulfate 0 mg 06/24/18 19:00 06/27/18 21:51 Morphine Office Nurse Practitioner 30mg/30ml IV 1 cartstart DIRECT MAURICIO Administration Protocol Naloxone HCl 0.1 mg 06/24/18 18:55 Narcan 0.4 Mg/1 Ml IV Q2MIN PRN Res Rate </= 8 or 02 SAT < 92% Nicotine 14 mg 06/25/18 10:00 06/28/18 09:10 Habitrol TD 14 mg QDAY MAURICIO Administration Ondansetron HCl 4 mg 06/24/18 14:00 06/29/18 04:00 Zofran IV 4 mg Q8H PRN Administration Nausea And Vomiting Pantoprazole Sodium 40 mg 06/26/18 10:00 06/28/18 09:10 Protonix IV 40 mg QDAY MAURICIO Administration Phenol 1 spray 06/25/18 13:51 Chloraseptic MM PRN PRN Sore Throat Sodium Chloride 10 ml 06/24/18 22:00 06/28/18 23:35 Sodium Chloride Flush Syringe 10 Ml IV 10 ml BID MAURICIO Administration Sodium Chloride 10 ml 06/24/18 14:00 Sodium Chloride Flush Syringe 10 Ml IV PRN PRN LINE FLUSH
[2018-06-29] MEDS ORDERED: MAGNESIUM SULFATE 2GM/50ML 2 GM/50 ML BAG IV ONE (10:04)
--- NOTE | 2018-06-29 10:05 | Progress Note ---
Assessment and Plan 58 y/o female with acute respiratory failure secondary to volume overload and possible COPD exacerbation POD 5 from Posey's Pouch for perforated viscous. 1. Agree with repeat lasix therapy this am 2. Likely will need more lasix this afternoon 3. Wean FiO2 for sats > 88% 4. Limit IVF's Subjective Date of service: 06/29/18 Principal diagnosis: peritonitis/penumonia Interval history: Improvement overall today. Still tachy and hypoxic but now only on venti mask. Work of breathing is much easier. CXR improved but still with some patchy infiltrates. Still positive overall as well. Objective Vital Signs - 12hr 06/28/18 06/29/18 06/29/18 22:00 00:00 00:37 Temperature 99.4 F Pulse Rate 139 H Pulse Rate [ Anterior Bilateral Throughout] Respiratory 32 H Rate Respiratory Rate [Anterior Bilateral Throughout] Blood Pressure 167/84 O2 Sat by Pulse 93 92 Oximetry 06/29/18 06/29/18 06/29/18 01:58 02:11 02:38 Temperature Pulse Rate Pulse Rate [ 118 H 124 H Anterior Bilateral Throughout] Respiratory Rate Respiratory 33 H 35 H Rate [Anterior Bilateral Throughout] Blood Pressure O2 Sat by Pulse 96 Oximetry 06/29/18 06/29/18 06/29/18 04:00 08:48 08:54 Temperature 98.9 F Pulse Rate Pulse Rate [ 118 H Anterior Bilateral Throughout] Respiratory Rate Respiratory 30 H Rate [Anterior Bilateral Throughout] Blood Pressure O2 Sat by Pulse 92 Oximetry 06/29/18 08:57 Temperature Pulse Rate Pulse Rate [ Anterior Bilateral Throughout] Respiratory Rate Respiratory Rate [Anterior Bilateral Throughout] Blood Pressure O2 Sat by Pulse 92 Oximetry Constitutional: no acute distress, alert Eyes: non-icteric ENT: oropharynx moist, other (NG tube in left nare) Neck: supple Effort: normal Ascultation: Bilateral: rales Percussion: Bilateral: not dull Tactile fremitus: Bilateral: normal Cardiovascular: other (sinus tach) Gastrointestinal: hypoactive bowel sounds, other (mildly distended) Integumentary: normal Extremities: no cyanosis, no edema Neurologic: normal mental status, non-focal exam CBC and BMP: 06/29/18 05:58 06/29/18 05:58 ABG, PT/INR, D-dimer: ABG POC ABG pH 7.470 (7.35-7.45) H 06/28/18 13:19 POC ABG pCO2 53.0 (35-45) H 06/28/18 13:19 POC ABG pO2 120 (80-105) H 06/28/18 13:19 POC ABG HCO3 38.6 (22-26 mml/L) 06/28/18 13:19 POC ABG Total CO2 40 (23-27mmol/L) 06/28/18 13:19 POC ABG O2 Sat 99 06/28/18 13:19 PT/INR, D-dimer PT 15.9 Sec. (12.2-14.9) H 06/24/18 11:18 INR 1.19 (0.87-1.13) H 06/24/18 11:18 Abnormal lab findings: Abnormal Labs 06/24/18 06/24/18 06/24/18 11:18 11:19 11:19 WBC 19.0 H RBC MCHC 35 H RDW Plt Count 457 H Seg Neuts % (Manual) 88.0 H Lymphocytes % (Manual) 2.0 L Seg Neutrophils # Man 16.7 H Lymphocytes # (Manual) 0.4 L Monocytes # (Manual) PT 15.9 H INR 1.19 H POC ABG pH POC ABG pCO2 POC ABG pO2 Sodium 136 L Potassium 2.8 L* Chloride 96.7 L Carbon Dioxide Creatinine 0.4 L Glucose 146 H Calcium Total Bilirubin 1.90 H Direct Bilirubin 1.5 H Alkaline Phosphatase 264 H C-Reactive Protein NT-Pro-B Natriuret Pep Total Protein Albumin 3.0 L Lipase 8 L Ur Specific [place] 06/24/18 06/24/18 06/25/18 13:00 19:47 06:55 WBC 18.3 H RBC MCHC 35 H RDW Plt Count 481 H Seg Neuts % (Manual) 88.0 H Lymphocytes % (Manual) 4.0 L Seg Neutrophils # Man 16.1 H Lymphocytes # (Manual) 0.7 L Monocytes # (Manual) PT INR POC ABG pH POC ABG pCO2 POC ABG pO2 Sodium Potassium 3.5 L D Chloride Carbon Dioxide 21 L Creatinine 0.3 L Glucose 166 H Calcium 7.4 L D Total Bilirubin Direct Bilirubin Alkaline Phosphatase C-Reactive Protein NT-Pro-B Natriuret Pep Total Protein Albumin Lipase Ur Specific [place] > 1.059 H 06/25/18 06/26/18 06/26/18 06:55 11:54 11:54 WBC 19.9 H RBC 3.48 L MCHC RDW Plt Count 583 H Seg Neuts % (Manual) Lymphocytes % (Manual) Seg Neutrophils # Man Lymphocytes # (Manual) Monocytes # (Manual) PT INR POC ABG pH POC ABG pCO2 POC ABG pO2 Sodium 146 H Potassium 3.5 L Chloride 108.3 H 109.9 H Carbon Dioxide Creatinine 0.4 L 0.3 L Glucose 159 H 153 H Calcium 7.7 L 8.2 L Total Bilirubin Direct Bilirubin Alkaline Phosphatase 152 H C-Reactive Protein NT-Pro-B Natriuret Pep Total Protein 5.3 L Albumin 2.1 L Lipase Ur Specific [place] 06/26/18 06/26/18 06/27/18 14:12 20:37 02:04 WBC RBC MCHC RDW Plt Count Seg Neuts % (Manual) Lymphocytes % (Manual) Seg Neutrophils # Man Lymphocytes # (Manual) Monocytes # (Manual) PT INR POC ABG pH 7.471 H 7.458 H POC ABG pCO2 POC ABG pO2 74 L 70 L Sodium Potassium Chloride Carbon Dioxide Creatinine Glucose Calcium Total Bilirubin Direct Bilirubin Alkaline Phosphatase C-Reactive Protein 25.70 H NT-Pro-B Natriuret Pep Total Protein Albumin Lipase Ur Specific [place] 06/27/18 06/27/18 06/28/18 09:19 11:50 00:17 WBC 24.5 H 37.2 H RBC MCHC RDW 15.4 H Plt Count 583 H 657 H Seg Neuts % (Manual) 98.0 H 88.5 H Lymphocytes % (Manual) 1.0 L 4.0 L Seg Neutrophils # Man 24.0 H 32.9 H Lymphocytes # (Manual) 0.2 L Monocytes # (Manual) 1.1 H PT INR POC ABG pH POC ABG pCO2 POC ABG pO2 Sodium 146 H Potassium 3.5 L Chloride Carbon Dioxide Creatinine 0.3 L Glucose 176 H Calcium 8.2 L Total Bilirubin Direct Bilirubin Alkaline Phosphatase C-Reactive Protein NT-Pro-B Natriuret Pep Total Protein Albumin Lipase Ur Specific [place] 06/28/18 06/28/18 06/28/18 09:56 09:56 09:56 WBC 37.8 H RBC MCHC RDW 15.3 H Plt Count 634 H Seg Neuts % (Manual) Lymphocytes % (Manual) Seg Neutrophils # Man Lymphocytes # (Manual) Monocytes # (Manual) PT INR POC ABG pH POC ABG pCO2 POC ABG pO2 Sodium 146 H Potassium 2.8 L* Chloride Carbon Dioxide 31 H Creatinine 0.3 L Glucose 142 H Calcium 8.2 L Total Bilirubin Direct Bilirubin Alkaline Phosphatase C-Reactive Protein NT-Pro-B Natriuret Pep 1572 H Total Protein Albumin Lipase Ur Specific [place] 06/28/18 06/28/18 06/29/18 13:19 21:24 00:57 WBC 28.9 H RBC MCHC RDW Plt Count 681 H Seg Neuts % (Manual) 93.0 H Lymphocytes % (Manual) 1.5 L Seg Neutrophils # Man 26.9 H Lymphocytes # (Manual) 0.4 L Monocytes # (Manual) PT INR POC ABG pH 7.470 H POC ABG pCO2 53.0 H POC ABG pO2 120 H Sodium Potassium 3.0 L Chloride Carbon Dioxide 33 H Creatinine 0.3 L Glucose 116 H Calcium 8.2 L Total Bilirubin Direct Bilirubin Alkaline Phosphatase C-Reactive Protein NT-Pro-B Natriuret Pep Total Protein Albumin Lipase Ur Specific [place] 06/29/18 06/29/18 05:58 05:58 WBC 25.8 H RBC MCHC RDW Plt Count 661 H Seg Neuts % (Manual) Lymphocytes % (Manual) Seg Neutrophils # Man Lymphocytes # (Manual) Monocytes # (Manual) PT INR POC ABG pH POC ABG pCO2 POC ABG pO2 Sodium Potassium 2.7 L* Chloride Carbon Dioxide 35 H Creatinine 0.3 L Glucose 132 H Calcium 8.2 L Total Bilirubin Direct Bilirubin Alkaline Phosphatase C-Reactive Protein NT-Pro-B Natriuret Pep Total Protein Albumin Lipase Ur Specific [place] Chest x-ray: image reviewed (Please see assessment in subjective)
--- NOTE | 2018-06-29 10:11 | XRay Report ---
AP CHEST: HISTORY: Hypoxemia Bilateral pulmonary edema or infiltrates has decreased by 25-50% since 06/28/18. No pleural effusion or pneumothorax. Normal heart size and nasogastric tube terminates just beyond the GE junction. IMPRESSION: Mild improvement in the bilateral pulmonary edema or infiltrates.
[2018-06-29] MEDS: HABITROL TD SCH (10:34)
[2018-06-29] MEDS: PROTONIX IV SCH (10:34)
[2018-06-29] MEDS: MAXIPIME/NS 2 GM/100 ML 2 GM/100 ML BAG IV SCH ×2 (10:34→22:00)
[2018-06-29] MEDS: DIFLUCAN 200 ML IV SCH (10:35)
[2018-06-29] MEDS: SODIUM CHLORIDE FLUSH SYRINGE 10 ML IV SCH ×2 (10:37→23:00)
--- NOTE | 2018-06-29 14:59 | Progress Note ---
Assessment and Plan 58 yo F s/p exploratory laparotomy, peritoneal lavage, landon's procedure POD 5 Plan: CTA negative for PE. Patient with stool in ostomy bag 1. start clear liquid diet, DC NGT 2. maintenance IVF - decrease rate. 3. IV abx per ID 4. OOB/ambulate. PT consulted 5. IS/pulm toilet. 6. DVT/GI ppx 7. HYDRAULIC BLOCKER for pain management - will dc when tolerating diet 8. José drain - will dc in am 9. supplemental O2, nebs 10. continue wound vac 11. monitor lytes and replace as needed Thank you, please call with questions. Subjective Date of service: 06/29/18 Narrative: Pt seen and examined. Feels well today. No f/c, cp, sob, n/v, abd pain. Objective Vital Signs - 12hr 06/29/18 06/29/18 06/29/18 04:00 08:00 08:48 Temperature 98.9 F Pulse Rate Pulse Rate [ 118 H Anterior Bilateral Throughout] Pulse Rate [ 110 H From Monitor] Respiratory 30 H Rate [Anterior Bilateral Throughout] O2 Sat by Pulse 92 Oximetry 06/29/18 06/29/18 06/29/18 08:54 08:57 11:25 Temperature Pulse Rate 110 H Pulse Rate [ Anterior Bilateral Throughout] Pulse Rate [ From Monitor] Respiratory Rate [Anterior Bilateral Throughout] O2 Sat by Pulse 92 92 Oximetry 06/29/18 12:00 Temperature Pulse Rate Pulse Rate [ Anterior Bilateral Throughout] Pulse Rate [ 114 H From Monitor] Respiratory Rate [Anterior Bilateral Throughout] O2 Sat by Pulse 90 Oximetry - General physical appearance Narrative Exam: Gen: AAOx3. NAD NGT - minimal clear fluid in tubing CV: s1, S2+ resp; on ventimask. unlabored Abd: soft, NT, ND. wound vac in place with good seal. José serous. Ostomy with stool in bag Ext: no c/c/e - Labs 06/29/18 05:58 06/29/18 05:58 Diabetes panel 06/28/18 06/29/18 Range/Units 21:24 05:58 Sodium 144 145 (137-145) mmol/L Potassium 3.0 L 2.7 L* (3.6-5.0) mmol/L Chloride 98.3 100.3 (98-107) mmol/L Carbon Dioxide 33 H 35 H (22-30) mmol/L BUN 11 12 (7-17) mg/dL Creatinine 0.3 L 0.3 L (0.7-1.2) mg/dL Glucose 116 H 132 H (65-100) mg/dL Calcium 8.2 L 8.2 L (8.4-10.2) mg/dL Calcium panel 06/28/18 06/29/18 06/29/18 Range/Units 21:24 05:58 05:58 Calcium 8.2 L 8.2 L (8.4-10.2) mg/dL Phosphorus 3.00 (2.5-4.5) mg/dL Pituitary panel 06/28/18 06/29/18 Range/Units 21:24 05:58 Sodium 144 145 (137-145) mmol/L Potassium 3.0 L 2.7 L* (3.6-5.0) mmol/L Chloride 98.3 100.3 (98-107) mmol/L Carbon Dioxide 33 H 35 H (22-30) mmol/L BUN 11 12 (7-17) mg/dL Creatinine 0.3 L 0.3 L (0.7-1.2) mg/dL Glucose 116 H 132 H (65-100) mg/dL Calcium 8.2 L 8.2 L (8.4-10.2) mg/dL Adrenal panel 06/28/18 06/29/18 Range/Units 21:24 05:58 Sodium 144 145 (137-145) mmol/L Potassium 3.0 L 2.7 L* (3.6-5.0) mmol/L Chloride 98.3 100.3 (98-107) mmol/L Carbon Dioxide 33 H 35 H (22-30) mmol/L BUN 11 12 (7-17) mg/dL Creatinine 0.3 L 0.3 L (0.7-1.2) mg/dL Glucose 116 H 132 H (65-100) mg/dL Calcium 8.2 L 8.2 L (8.4-10.2) mg/dL
[2018-06-29] MEDS: SUBLIMAZE IV PRN (15:22)
[2018-06-29 19:32] LABS: BUN/Creatinine Ratio 53; Blood Urea Nitrogen 16 mg/dL (7-17); Calcium 8.2 mg/dL (8.4-10.2); Hemolysis Index 3
[2018-06-29] MEDS: LOVENOX SUB-Q SCH (22:56)
[2018-06-30] MEDS: DUONEB *Not for PRN Use IH SCH ×3 (03:06→13:51)
[2018-06-30] MEDS: VANCOMYCIN 750 MG in NACL 0.9% 250ML 250 ML IV SCH ×2 (05:21→17:53)
[2018-06-30] MEDS: FLAGYL 500 MG/100 ML 500 MG/100 ML BAG IV SCH ×3 (05:21→21:57)
[2018-06-30 07:36] LABS: Hematocrit 32.7 % (30.3-42.9); Mean Corpuscular HGB Conc 34 % (30-34); Mean Corpuscular Volume 88 fl (79-97); Platelet Count 652 K/mm3 (140-440); Red Cell Distribution Width 15.1 % (13.2-15.2)
[2018-06-30 08:05] LABS: BUN/Creatinine Ratio 57; Blood Urea Nitrogen 17 mg/dL (7-17); Calcium 8.2 mg/dL (8.4-10.2); Hemolysis Index 1
--- NOTE | 2018-06-30 08:49 | Progress Note ---
Assessment and Plan 58 yo F s/p exploratory laparotomy, peritoneal lavage, Ezequiel's procedure POD 6 Plan: 1. adv to soft diet 2. ok to dc IVF 3. IV abx per ID 4. OOB/chair. reconsult PT when off face mask 5. IS/pulm toilet. 6. DVT/GI ppx 7. PO pain control 8. [place] drain removed 9. supplemental O2, nebs 10. continue wound vac - changes last night 11. replace K Thank you, please call with questions. Subjective Date of service: 06/30/18 Narrative: Pt seen and examined. No complaints. Tolerating clears. States she feels like she needs to cough something up but can't because she is laying in bed. No f/c. Pain controlled. Objective Vital Signs - 12hr 06/29/18 06/29/18 06/29/18 20:47 20:57 22:00 Temperature Pulse Rate 112 H Pulse Rate [ 110 H 112 H Anterior Bilateral Throughout] Pulse Rate [ From Monitor] Pulse Rate [ Left Dorsalis Pedis] Pulse Rate [ Right Dorsalis Pedis] Respiratory Rate Respiratory 35 H 35 H Rate [Anterior Bilateral Throughout] Blood Pressure O2 Sat by Pulse 92 Oximetry 06/29/18 06/29/18 06/30/18 23:23 23:26 03:06 Temperature Pulse Rate 117 H Pulse Rate [ 112 H Anterior Bilateral Throughout] Pulse Rate [ 114 H From Monitor] Pulse Rate [ 120 H Left Dorsalis Pedis] Pulse Rate [ 120 H Right Dorsalis Pedis] Respiratory 35 H Rate Respiratory 34 H Rate [Anterior Bilateral Throughout] Blood Pressure 147/83 O2 Sat by Pulse 93 90 Oximetry 06/30/18 06/30/18 06/30/18 03:08 03:21 04:00 Temperature Pulse Rate 112 H Pulse Rate [ 114 H Anterior Bilateral Throughout] Pulse Rate [ 114 H From Monitor] Pulse Rate [ 112 H Left Dorsalis Pedis] Pulse Rate [ 112 H Right Dorsalis Pedis] Respiratory 34 H 22 Rate Respiratory 34 H Rate [Anterior Bilateral Throughout] Blood Pressure 158/87 O2 Sat by Pulse 90 Oximetry 06/30/18 06/30/18 06/30/18 08:00 08:15 08:25 Temperature 99.0 F Pulse Rate Pulse Rate [ 104 H 124 H Anterior Bilateral Throughout] Pulse Rate [ From Monitor] Pulse Rate [ Left Dorsalis Pedis] Pulse Rate [ Right Dorsalis Pedis] Respiratory Rate Respiratory 36 H 36 H Rate [Anterior Bilateral Throughout] Blood Pressure O2 Sat by Pulse 96 Oximetry - General physical appearance Narrative Exam: Gen: AAOx3. NAD CV: s1, S2+ resp; on ventimask. unlabored Abd: soft, NT, ND. wound vac in place with good seal. [place] serous - suture cut and drain removed intact, covered site with foam dressing. Ostomy with stool in bag Ext: no c/c/e - Labs 06/30/18 07:19 06/30/18 07:19 Diabetes panel 06/29/18 06/30/18 Range/Units 18:52 07:19 Sodium 143 145 (137-145) mmol/L Potassium 3.1 L 2.8 L* (3.6-5.0) mmol/L Chloride 98.6 100.9 (98-107) mmol/L Carbon Dioxide 33 H 30 (22-30) mmol/L BUN 16 17 (7-17) mg/dL Creatinine 0.3 L 0.3 L (0.7-1.2) mg/dL Glucose 129 H 109 H (65-100) mg/dL Calcium 8.2 L 8.2 L (8.4-10.2) mg/dL Calcium panel 06/29/18 06/30/18 Range/Units 18:52 07:19 Calcium 8.2 L 8.2 L (8.4-10.2) mg/dL Pituitary panel 06/29/18 06/30/18 Range/Units 18:52 07:19 Sodium 143 145 (137-145) mmol/L Potassium 3.1 L 2.8 L* (3.6-5.0) mmol/L Chloride 98.6 100.9 (98-107) mmol/L Carbon Dioxide 33 H 30 (22-30) mmol/L BUN 16 17 (7-17) mg/dL Creatinine 0.3 L 0.3 L (0.7-1.2) mg/dL Glucose 129 H 109 H (65-100) mg/dL Calcium 8.2 L 8.2 L (8.4-10.2) mg/dL Adrenal panel 06/29/18 06/30/18 Range/Units 18:52 07:19 Sodium 143 145 (137-145) mmol/L Potassium 3.1 L 2.8 L* (3.6-5.0) mmol/L Chloride 98.6 100.9 (98-107) mmol/L Carbon Dioxide 33 H 30 (22-30) mmol/L BUN 16 17 (7-17) mg/dL Creatinine 0.3 L 0.3 L (0.7-1.2) mg/dL Glucose 129 H 109 H (65-100) mg/dL Calcium 8.2 L 8.2 L (8.4-10.2) mg/dL
[2018-06-30] MEDS: KCL 10MEQ/100ML 10 MEQ/100 ML BAG IV SCH ×7 (08:50→22:55)
[2018-06-30] MEDS ORDERED: LASIX IV ONE (09:00)
[2018-06-30] MEDS ORDERED: K-DUR PO ONE ×3 (09:00→20:15)
--- NOTE | 2018-06-30 09:27 | Progress Note ---
Assessment and Plan Assessment and plan: 58 year old woman who presented to the hospital with generalized abdominal pain. Past medical history includes tobacco abuse, current everyday smoker Diagnosis Acute hypoxic respiratory failure , now on VM 15 l/min in ICU. Transferred to ICU from [address] [place] [address] 06/28 Severe enterocolitis Purulent peritonitis Sigmoid diverticulitis with perforation of distal sigmoid colon hypokalemia, severe hyponatremia Moderate malnutrition Nicotine dependence Sepsis Acute hypoxic respiratory failure Leukocytosis worse, may be sepsis versus solumedrol given Plan Pulmonology following Repeat Lasix 40mg iv today CXR bilat infiltrates Status post ex lap, peritoneal lavage, Posey's procedure on 06/24 Electrolytes have been replaced abx per ID Obtain CT Chest lasix, oxygen supplement, breathing rx as needed DVT prophylaxis Lovenox Full code status Improving/ History Interval history: Patient transferred to ICU 06/28 because of acute resp failure Less Abdominal pain Shortness of breath improved Hospitalist Physical - Physical exam Narrative exam: Gen: Not in acute distress, lying in bed, HEENT: Normocephalic, atraumatic Neck: supple, no JVD Heart: S1 and S2 reg, no murmurs, rubs or gallop Lungs: Bilateral crackles, no wheeze Abd: soft, mild tender, mild distended, midline wound, ostomy pink, surgical drain, Ext:No edema, no clubbing, no cyanosis Neuro: Awake,alert, oriented x 3, moves all ext, non focal Psych:Normal mood - Constitutional Vitals: Temp Pulse Resp BP Pulse Ox 99.0 F 124 H 36 H 158/87 96 06/30/18 08:00 06/30/18 08:25 06/30/18 08:25 06/30/18 03:08 06/30/18 08:15 Results - Labs CBC & Chem 7: 06/30/18 07:19 06/30/18 07:19 Labs: Laboratory Last Values WBC 23.1 K/mm3 (4.5-11.0) H 06/30/18 07:19 RBC 3.70 M/mm3 (3.65-5.03) 06/30/18 07:19 Hgb 11.0 gm/dl (10.1-14.3) 06/30/18 07:19 Hct 32.7 % (30.3-42.9) 06/30/18 07:19 MCV 88 fl (79-97) 06/30/18 07:19 MCH 30 pg (28-32) 06/30/18 07:19 MCHC 34 % (30-34) 06/30/18 07:19 RDW 15.1 % (13.2-15.2) 06/30/18 07:19 Plt Count 652 K/mm3 (140-440) H 06/30/18 07:19 Add Manual Diff Complete 06/29/18 00:57 Total Counted 200 06/29/18 00:57 Seg Neutrophils % Banquet Director 06/29/18 00:57 Seg Neuts % (Manual) 93.0 % (40.0-70.0) H 06/29/18 00:57 3.5 % 06/29/18 00:57 1.5 % (13.4-35.0) L 06/29/18 00:57 Reactive Lymphs % (Man) 0.5 % 06/29/18 00:57 1.5 % (0.0-7.3) 06/29/18 00:57 0 % (0.0-4.3) 06/29/18 00:57 0 % (0.0-1.8) 06/29/18 00:57 0 % 06/29/18 00:57 0 % 06/29/18 00:57 0 % 06/29/18 00:57 0 % 06/29/18 00:57 Nucleated RBC % Not Reportable 06/29/18 00:57 Seg Neutrophils # Man 26.9 K/mm3 (1.8-7.7) H 06/29/18 00:57 Band Neutrophils # 1.0 K/mm3 06/29/18 00:57 0.4 K/mm3 (1.2-5.4) L 06/29/18 00:57 Abs React Lymphs (Man) 0.1 K/mm3 06/29/18 00:57 0.4 K/mm3 (0.0-0.8) 06/29/18 00:57 0.0 K/mm3 (0.0-0.4) 06/29/18 00:57 0.0 K/mm3 (0.0-0.1) 06/29/18 00:57 0.0 K/mm3 06/29/18 00:57 0.0 K/mm3 06/29/18 00:57 0.0 K/mm3 06/29/18 00:57 Blast Cells # 0.0 K/mm3 06/29/18 00:57 WBC Morphology Not Reportable 06/29/18 00:57 WBC Morphology TNR 06/29/18 00:57 Hypersegmented Neuts Few 06/29/18 00:57 Hyposegmented Neuts Not Reportable 06/29/18 00:57 Hypogranular Neuts Not Reportable 06/29/18 00:57 Not Reportable 06/29/18 00:57 Not Reportable 06/29/18 00:57 Not Reportable 06/29/18 00:57 Not Reportable 06/29/18 00:57 Not Reportable 06/29/18 00:57 Not Reportable 06/29/18 00:57 Appears increased 06/29/18 00:57 Not Reportable 06/29/18 00:57 Plt Clumps, EDTA Not Reportable 06/29/18 00:57 Not Reportable 06/29/18 00:57 Not Reportable 06/29/18 00:57 Not Reportable 06/29/18 00:57 Plt Morphology Comment Not Reportable 06/29/18 00:57 RBC Morphology Not Reportable 06/29/18 00:57 Dimorphic RBCs Not Reportable 06/29/18 00:57 Not Reportable 06/29/18 00:57 Not Reportable 06/29/18 00:57 Not Reportable 06/29/18 00:57 Not Reportable 06/29/18 00:57 Not Reportable 06/29/18 00:57 Not Reportable 06/29/18 00:57 Not Reportable 06/29/18 00:57 Not Reportable 06/29/18 00:57 Not Reportable 06/29/18 00:57 Not Reportable 06/29/18 00:57 Not Reportable 06/29/18 00:57 Not Reportable 06/29/18 00:57 Not Reportable 06/29/18 00:57 Not Reportable 06/29/18 00:57 Not Reportable 06/29/18 00:57 Not Reportable 06/29/18 00:57 Not Reportable 06/29/18 00:57 Not Reportable 06/29/18 00:57 Not Reportable 06/29/18 00:57 Acanthocytes (Spur) Not Reportable 06/29/18 00:57 Rouleaux Not Reportable 06/29/18 00:57 Not Reportable 06/29/18 00:57 Not Reportable 06/29/18 00:57 Not Reportable 06/29/18 00:57 Not Reportable 06/29/18 00:57 Hem Pathologist Commnt No 06/29/18 00:57 PT 15.9 Sec. (12.2-14.9) H 06/24/18 11:18 INR 1.19 (0.87-1.13) H 06/24/18 11:18 APTT 31.8 Sec. (24.2-36.6) 06/24/18 11:18 POC ABG pH 7.470 (7.35-7.45) H 06/28/18 13:19 POC ABG pCO2 53.0 (35-45) H 06/28/18 13:19 POC ABG pO2 120 (80-105) H 06/28/18 13:19 POC ABG HCO3 38.6 (22-26 mml/L) 06/28/18 13:19 POC ABG Total CO2 40 (23-27mmol/L) 06/28/18 13:19 POC ABG O2 Sat 99 06/28/18 13:19 POC ABG Base Excess 15 ((-2) - (+3)mmol/L) 06/28/18 13:19 100 % 06/28/18 13:19 Sodium 145 mmol/L (137-145) 06/30/18 07:19 Potassium 2.8 mmol/L (3.6-5.0) L* 06/30/18 07:19 Chloride 100.9 mmol/L (98-107) 06/30/18 07:19 Carbon Dioxide 30 mmol/L (22-30) 06/30/18 07:19 17 mmol/L 06/30/18 07:19 BUN 17 mg/dL (7-17) 06/30/18 07:19 0.3 mg/dL (0.7-1.2) L 06/30/18 07:19 Estimated GFR > 60 ml/min 06/30/18 07:19 57 % 06/30/18 07:19 Glucose 109 mg/dL (65-100) H 06/30/18 07:19 POC Glucose 106 (70-105) H 06/30/18 05:02 Calcium 8.2 mg/dL (8.4-10.2) L 06/30/18 07:19 Phosphorus 3.00 mg/dL (2.5-4.5) 06/29/18 05:58 Magnesium 1.90 mg/dL (1.7-2.3) 06/29/18 05:58 0.90 mg/dL (0.1-1.2) 06/25/18 06:55 1.5 mg/dL (0-0.2) H 06/24/18 11:19 0.4 mg/dL 06/24/18 11:19 AST 16 units/L (5-40) 06/25/18 06:55 ALT 21 units/L (7-56) 06/25/18 06:55 152 units/L (35-129) H 06/25/18 06:55 25.70 mg/dL (0.00-1.30) H 06/26/18 14:12 NT-Pro-B Natriuret Pep 1572 pg/mL (0-900) H 06/28/18 09:56 5.3 g/dL (6.3-8.2) L 06/25/18 06:55 2.1 g/dL (3.9-5) L 06/25/18 06:55 0.7 % 06/25/18 06:55 8 units/L (13-60) L 06/24/18 11:19 Yellow (Yellow) 06/24/18 13:00 Clear (Clear) 06/24/18 13:00 6.0 (5.0-7.0) 06/24/18 13:00 Ur Specific [place] > 1.059 (1.003-1.030) H 06/24/18 13:00 30 mg/dl mg/dL (Negative) 06/24/18 13:00 Neg mg/dL (Negative) 06/24/18 13:00 Neg mg/dL (Negative) 06/24/18 13:00 Neg (Negative) 06/24/18 13:00 Neg (Negative) 06/24/18 13:00 Neg (Negative) 06/24/18 13:00 4.0 mg/dL (<2.0) 06/24/18 13:00 Ur Leukocyte Esterase Neg (Negative) 06/24/18 13:00 2.0 /HPF (0.0-6.0) 06/24/18 13:00 2.0 /HPF (0.0-6.0) 06/24/18 13:00 U Epithel Cells (Auto) 1.0 /HPF (0-13.0) 06/24/18 13:00 1+ /HPF (Negative) 06/24/18 13:00 Active Medications - Current Medications Current Medications: Generic Name Dose Route Start Last Admin Trade Name Freq PRN Reason Stop Dose Admin Acetaminophen 650 mg 06/24/18 14:00 Tylenol PO Q4H PRN Pain MILD(1-3)/Fever >100.5/LINK Acetaminophen/Hydrocodone Bitart 1 each 06/30/18 08:45 [place] 5/325 PO Q6H PRN Pain, Moderate (4-6) Albuterol 2.5 mg 06/24/18 14:00 Proventil IH Q4HRT PRN Shortness Of Breath Albuterol/Ipratropium 1 ampul 06/26/18 14:00 06/30/18 08:15 Duoneb *Not For Prn Use* IH 1 ampul Q6HRT MAURICIO Administration Enoxaparin Sodium 40 mg 06/25/18 22:00 06/29/18 22:56 Lovenox SUB-Q 40 mg QDAY@2200 MAURICIO Administration Fentanyl 25 mcg 06/29/18 11:30 06/29/18 15:22 Sublimaze IV 25 mcg Q2H PRN Administration Pain, Moderate (4-6) Metronidazole 500 mg in 100 mls @ 100 mls/hr 06/24/18 22:00 06/30/18 05:21 Flagyl 500 Mg/100 Ml IV 100 mls/hr Q8H MAURICIO Administration Protocol Fluconazole 200 mls @ 100 mls/hr 06/26/18 14:00 06/29/18 10:35 Diflucan IV 100 mls/hr Q24HR MAURICIO Administration Protocol Cefepime HCl 2 gm in 100 mls @ 200 mls/hr 06/27/18 14:00 06/29/18 22:00 Maxipime/Ns 2 Gm/100 Ml IV 200 mls/hr Q12HR MAURICIO Administration Protocol Vancomycin HCl 750 mg/ Sodium 265 mls @ 166.667 mls/hr 06/28/18 18:00 06/30/18 05:21 Chloride IV 166.667 mls/hr Q12HR@0600,1800 MAURICIO Administration Potassium Chloride 10 meq in 100 mls @ 100 mls/hr 06/30/18 09:00 06/30/18 08:50 Kcl 10meq/100ml IV 06/30/18 12:59 100 mls/hr Q1H MAURICIO Administration Naloxone HCl 0.1 mg 06/24/18 18:55 Narcan 0.4 Mg/1 Ml IV Q2MIN PRN Res Rate </= 8 or 02 SAT < 92% Nicotine 14 mg 06/25/18 10:00 06/29/18 10:34 Habitrol TD 14 mg QDAY MAURICIO Administration Ondansetron HCl 4 mg 06/24/18 14:00 06/29/18 04:00 Zofran IV 4 mg Q8H PRN Administration Nausea And Vomiting Pantoprazole Sodium 40 mg 06/30/18 10:00 Protonix PO DAILY MAURICIO Phenol 1 spray 06/25/18 13:51 Chloraseptic MM PRN PRN Sore Throat Sodium Chloride 10 ml 06/24/18 22:00 06/29/18 23:00 Sodium Chloride Flush Syringe 10 Ml IV 10 ml BID MAURICIO Administration Sodium Chloride 10 ml 06/24/18 14:00 Sodium Chloride Flush Syringe 10 Ml IV PRN PRN LINE FLUSH
[2018-06-30] MEDS: MAXIPIME/NS 2 GM/100 ML 2 GM/100 ML BAG IV SCH ×2 (09:39→21:54)
[2018-06-30] MEDS: HABITROL TD SCH (09:40)
[2018-06-30] MEDS: DIFLUCAN 200 ML IV SCH (09:40)
[2018-06-30] MEDS: SODIUM CHLORIDE FLUSH SYRINGE 10 ML IV SCH ×2 (09:40→22:08)
[2018-06-30] MEDS: PROTONIX PO SCH (09:40)
--- NOTE | 2018-06-30 11:11 | Progress Note ---
Assessment and Plan Cultures: 06/26/2018 Blood culture no growth so far Assessment: 58 y/o female with history of HTN, tobacco dependence admitted on 06/24/2018 due to a week history of severe abdominal pain, constipation and nausea. 1) Sepsis: still low grade fever and leukocytosis. Etiology most likely peritonitis from diverticular perforation/abscess +/- enterocolitis +/- partial SBO +/- pneumonia. 2) Acute fecal peritonitis from diverticular perforation/abscess: CT abdomen showed suspect diffuse moderate to severe enterocolitis with multiple air-fluid levels. Possible small bowel obstruction or high-grade incomplete obstruction. Transition point is not clearly identified but suspected in the pelvis. Small pockets of free air suggests perforation which could be related to the sigmoid colon which demonstrates diverticulosis/diverticulitis. Small amount of free fluid in the abdomen. Small to moderate fluid in the pelvis particularly around the sigmoid colon may represent developing abscesses. She was taken to the OR on 06/24/2018 for Exploratory laparotomy, Ezequiel's for perforated sigmoid div erticulitis with purulent peritonitis. No OR cultures available. CRP 25. 3) Bilateral pneumonia: ?aspiration v/s HAP on cefepime and vancomycin. CTA showed scattered infiltrates identified in both lungs, this is most prominent in the right lower lung, slight bilateral effusions, no evidence of pulmonary arterial emboli . 4) Acute hypoxemic resp failure: on venti mask from pneumonia +/- COPD Recommendations: - follow-up blood cultures - continue flagyl 500mg IV every 8 hours, D6 - continue fluconazole 200 ml IV every 24 hours, D5 - continue Cefepime and Vancomycin to cover HAP D4 - monitor fever and leukocytosis Will follow. Dr Evans is covering this weekend Cira Villanueva MD Infectious Diseases [facility] ([facility] M [phone] O [phone] Subjective Date of service: 06/30/18 Principal diagnosis: peritonitis/penumonia Interval history: Remains SOB feels tired, on venti mask 50%, talking, tmax 100.2. ROS limited Objective - Exam Narrative Exam: General appearance: Alert in mild resp distress on venti mask 50% Eyes: anicteric sclerae, moist conjunctivae; no lid-lag; PERRLA HENT: Atraumatic; oropharynx limited Neck: Trachea midline; supple, no thyromegaly or lymphadenopathy Lungs: bilateral rhonchi CV: RRR, no murmurs Abdomen: Soft, midline abdomen with wound VAC, osteomy and drain Extremities: No peripheral edema or extremity lymphadenopathy Skin: Normal temperature, turgor and texture; no rash, ulcers or subcutaneous nodules Psych: no agitated. Neuro: alert and oriented x 3. Moving all extermities - Constitutional Vitals: Vital Signs Temp Pulse Resp BP Pulse Ox 99.0 F 124 H 36 H 158/87 96 06/30/18 08:00 06/30/18 08:25 06/30/18 08:25 06/30/18 03:08 06/30/18 08:15 Temperature -Last 24 Hours Temperature 99.0 F Temperature 98.6 F - Labs CBC & Chem 7: 06/30/18 07:19 06/30/18 07:19 Labs: Abnormal lab results 06/29/18 06/29/18 06/29/18 Range/Units 12:21 17:53 18:52 WBC (4.5-11.0) K/mm3 Plt Count (140-440) K/mm3 Potassium 3.1 L (3.6-5.0) mmol/L Carbon Dioxide 33 H (22-30) mmol/L Creatinine 0.3 L (0.7-1.2) mg/dL Glucose 129 H (65-100) mg/dL POC Glucose 130 H 109 H (70-105) Calcium 8.2 L (8.4-10.2) mg/dL 06/30/18 06/30/18 06/30/18 Range/Units 05:02 07:19 07:19 WBC 23.1 H (4.5-11.0) K/mm3 Plt Count 652 H (140-440) K/mm3 Potassium 2.8 L* (3.6-5.0) mmol/L Carbon Dioxide (22-30) mmol/L Creatinine 0.3 L (0.7-1.2) mg/dL Glucose 109 H (65-100) mg/dL POC Glucose 106 H (70-105) Calcium 8.2 L (8.4-10.2) mg/dL
--- NOTE | 2018-06-30 11:27 | Progress Note ---
Assessment and Plan 58 y/o female with acute respiratory failure secondary to volume overload and possible COPD exacerbation POD 5 from Posey's Pouch for perforated viscous. 1. Agree with repeat lasix therapy this am. Must be more aggressive with K rep lacement. I was not called with the BMP that I ordered last night for K replacement. Will speak with nursing about this. 2. Added BID Pulmicort. May consider brovana therapy so as well. 3. Wean FiO2 for sats > 88%. RT to try on cannula today 4. Limit IVF's 5. Stable for transfer. Will discontinue nightime Bipap Subjective Date of service: 06/30/18 Principal diagnosis: peritonitis/penumonia Interval history: No acute events. Surgery has removed NG and advanced diet. Tolerating so far. Oxygen requirement is stable but work of breathing is much easier. panics with bipap therapy now. Objective Vital Signs - 12hr 06/29/18 06/30/18 06/30/18 23:26 03:06 03:08 Temperature Pulse Rate 112 H Pulse Rate [ 112 H Anterior Bilateral Throughout] Pulse Rate [ 114 H From Monitor] Pulse Rate [ 120 H Left Dorsalis Pedis] Pulse Rate [ 120 H Right Dorsalis Pedis] Respiratory 34 H Rate Respiratory 34 H Rate [Anterior Bilateral Throughout] Blood Pressure 158/87 O2 Sat by Pulse 90 Oximetry 06/30/18 06/30/18 06/30/18 03:21 04:00 08:00 Temperature 99.0 F Pulse Rate Pulse Rate [ 114 H Anterior Bilateral Throughout] Pulse Rate [ 114 H 107 H From Monitor] Pulse Rate [ 112 H Left Dorsalis Pedis] Pulse Rate [ 112 H Right Dorsalis Pedis] Respiratory 22 24 Rate Respiratory 34 H Rate [Anterior Bilateral Throughout] Blood Pressure O2 Sat by Pulse 90 90 Oximetry 06/30/18 06/30/18 08:15 08:25 Temperature Pulse Rate Pulse Rate [ 104 H 124 H Anterior Bilateral Throughout] Pulse Rate [ From Monitor] Pulse Rate [ Left Dorsalis Pedis] Pulse Rate [ Right Dorsalis Pedis] Respiratory Rate Respiratory 36 H 36 H Rate [Anterior Bilateral Throughout] Blood Pressure O2 Sat by Pulse 96 Oximetry Constitutional: no acute distress, alert Eyes: non-icteric ENT: oropharynx moist, other (NG tube in left nare) Neck: supple Effort: normal Ascultation: Bilateral: rales Percussion: Bilateral: not dull Tactile fremitus: Bilateral: normal Cardiovascular: other (sinus tach) Gastrointestinal: hypoactive bowel sounds, other (mildly distended) Integumentary: normal Extremities: no cyanosis, no edema Neurologic: normal mental status, non-focal exam CBC and BMP: 06/30/18 07:19 06/30/18 07:19 ABG, PT/INR, D-dimer: ABG POC ABG pH 7.470 (7.35-7.45) H 06/28/18 13:19 POC ABG pCO2 53.0 (35-45) H 06/28/18 13:19 POC ABG pO2 120 (80-105) H 06/28/18 13:19 POC ABG HCO3 38.6 (22-26 mml/L) 06/28/18 13:19 POC ABG Total CO2 40 (23-27mmol/L) 06/28/18 13:19 POC ABG O2 Sat 99 06/28/18 13:19 PT/INR, D-dimer PT 15.9 Sec. (12.2-14.9) H 06/24/18 11:18 INR 1.19 (0.87-1.13) H 06/24/18 11:18 Abnormal lab findings: Abnormal Labs 06/24/18 06/24/18 06/24/18 11:18 11:19 11:19 WBC 19.0 H RBC MCHC 35 H RDW Plt Count 457 H Seg Neuts % (Manual) 88.0 H Lymphocytes % (Manual) 2.0 L Seg Neutrophils # Man 16.7 H Lymphocytes # (Manual) 0.4 L Monocytes # (Manual) PT 15.9 H INR 1.19 H POC ABG pH POC ABG pCO2 POC ABG pO2 Sodium 136 L Potassium 2.8 L* Chloride 96.7 L Carbon Dioxide Creatinine 0.4 L Glucose 146 H POC Glucose Calcium Total Bilirubin 1.90 H Direct Bilirubin 1.5 H Alkaline Phosphatase 264 H C-Reactive Protein NT-Pro-B Natriuret Pep Total Protein Albumin 3.0 L Lipase 8 L Ur Specific [place] 06/24/18 06/24/18 06/25/18 13:00 19:47 06:55 WBC 18.3 H RBC MCHC 35 H RDW Plt Count 481 H Seg Neuts % (Manual) 88.0 H Lymphocytes % (Manual) 4.0 L Seg Neutrophils # Man 16.1 H Lymphocytes # (Manual) 0.7 L Monocytes # (Manual) PT INR POC ABG pH POC ABG pCO2 POC ABG pO2 Sodium Potassium 3.5 L D Chloride Carbon Dioxide 21 L Creatinine 0.3 L Glucose 166 H POC Glucose Calcium 7.4 L D Total Bilirubin Direct Bilirubin Alkaline Phosphatase C-Reactive Protein NT-Pro-B Natriuret Pep Total Protein Albumin Lipase Ur Specific [place] > 1.059 H 06/25/18 06/26/18 06/26/18 06:55 11:54 11:54 WBC 19.9 H RBC 3.48 L MCHC RDW Plt Count 583 H Seg Neuts % (Manual) Lymphocytes % (Manual) Seg Neutrophils # Man Lymphocytes # (Manual) Monocytes # (Manual) PT INR POC ABG pH POC ABG pCO2 POC ABG pO2 Sodium 146 H Potassium 3.5 L Chloride 108.3 H 109.9 H Carbon Dioxide Creatinine 0.4 L 0.3 L Glucose 159 H 153 H POC Glucose Calcium 7.7 L 8.2 L Total Bilirubin Direct Bilirubin Alkaline Phosphatase 152 H C-Reactive Protein NT-Pro-B Natriuret Pep Total Protein 5.3 L Albumin 2.1 L Lipase Ur Specific [place] 06/26/18 06/26/18 06/27/18 14:12 20:37 02:04 WBC RBC MCHC RDW Plt Count Seg Neuts % (Manual) Lymphocytes % (Manual) Seg Neutrophils # Man Lymphocytes # (Manual) Monocytes # (Manual) PT INR POC ABG pH 7.471 H 7.458 H POC ABG pCO2 POC ABG pO2 74 L 70 L Sodium Potassium Chloride Carbon Dioxide Creatinine Glucose POC Glucose Calcium Total Bilirubin Direct Bilirubin Alkaline Phosphatase C-Reactive Protein 25.70 H NT-Pro-B Natriuret Pep Total Protein Albumin Lipase Ur Specific [place] 06/27/18 06/27/18 06/28/18 09:19 11:50 00:17 WBC 24.5 H 37.2 H RBC MCHC RDW 15.4 H Plt Count 583 H 657 H Seg Neuts % (Manual) 98.0 H 88.5 H Lymphocytes % (Manual) 1.0 L 4.0 L Seg Neutrophils # Man 24.0 H 32.9 H Lymphocytes # (Manual) 0.2 L Monocytes # (Manual) 1.1 H PT INR POC ABG pH POC ABG pCO2 POC ABG pO2 Sodium 146 H Potassium 3.5 L Chloride Carbon Dioxide Creatinine 0.3 L Glucose 176 H POC Glucose Calcium 8.2 L Total Bilirubin Direct Bilirubin Alkaline Phosphatase C-Reactive Protein NT-Pro-B Natriuret Pep Total Protein Albumin Lipase Ur Specific [place] 06/28/18 06/28/18 06/28/18 09:56 09:56 09:56 WBC 37.8 H RBC MCHC RDW 15.3 H Plt Count 634 H Seg Neuts % (Manual) Lymphocytes % (Manual) Seg Neutrophils # Man Lymphocytes # (Manual) Monocytes # (Manual) PT INR POC ABG pH POC ABG pCO2 POC ABG pO2 Sodium 146 H Potassium 2.8 L* Chloride Carbon Dioxide 31 H Creatinine 0.3 L Glucose 142 H POC Glucose Calcium 8.2 L Total Bilirubin Direct Bilirubin Alkaline Phosphatase C-Reactive Protein NT-Pro-B Natriuret Pep 1572 H Total Protein Albumin Lipase Ur Specific [place] 06/28/18 06/28/18 06/29/18 13:19 21:24 00:57 WBC 28.9 H RBC MCHC RDW Plt Count 681 H Seg Neuts % (Manual) 93.0 H Lymphocytes % (Manual) 1.5 L Seg Neutrophils # Man 26.9 H Lymphocytes # (Manual) 0.4 L Monocytes # (Manual) PT INR POC ABG pH 7.470 H POC ABG pCO2 53.0 H POC ABG pO2 120 H Sodium Potassium 3.0 L Chloride Carbon Dioxide 33 H Creatinine 0.3 L Glucose 116 H POC Glucose Calcium 8.2 L Total Bilirubin Direct Bilirubin Alkaline Phosphatase C-Reactive Protein NT-Pro-B Natriuret Pep Total Protein Albumin Lipase Ur Specific [place] 06/29/18 06/29/18 06/29/18 05:58 05:58 12:21 WBC 25.8 H RBC MCHC RDW Plt Count 661 H Seg Neuts % (Manual) Lymphocytes % (Manual) Seg Neutrophils # Man Lymphocytes # (Manual) Monocytes # (Manual) PT INR POC ABG pH POC ABG pCO2 POC ABG pO2 Sodium Potassium 2.7 L* Chloride Carbon Dioxide 35 H Creatinine 0.3 L Glucose 132 H POC Glucose 130 H Calcium 8.2 L Total Bilirubin Direct Bilirubin Alkaline Phosphatase C-Reactive Protein NT-Pro-B Natriuret Pep Total Protein Albumin Lipase Ur Specific [place] 06/29/18 06/29/18 06/30/18 17:53 18:52 05:02 WBC RBC MCHC RDW Plt Count Seg Neuts % (Manual) Lymphocytes % (Manual) Seg Neutrophils # Man Lymphocytes # (Manual) Monocytes # (Manual) PT INR POC ABG pH POC ABG pCO2 POC ABG pO2 Sodium Potassium 3.1 L Chloride Carbon Dioxide 33 H Creatinine 0.3 L Glucose 129 H POC Glucose 109 H 106 H Calcium 8.2 L Total Bilirubin Direct Bilirubin Alkaline Phosphatase C-Reactive Protein NT-Pro-B Natriuret Pep Total Protein Albumin Lipase Ur Specific [place] 06/30/18 06/30/18 07:19 07:19 WBC 23.1 H RBC MCHC RDW Plt Count 652 H Seg Neuts % (Manual) Lymphocytes % (Manual) Seg Neutrophils # Man Lymphocytes # (Manual) Monocytes # (Manual) PT INR POC ABG pH POC ABG pCO2 POC ABG pO2 Sodium Potassium 2.8 L* Chloride Carbon Dioxide Creatinine 0.3 L Glucose 109 H POC Glucose Calcium 8.2 L Total Bilirubin Direct Bilirubin Alkaline Phosphatase C-Reactive Protein NT-Pro-B Natriuret Pep Total Protein Albumin Lipase Ur Specific [place]
[2018-06-30] MEDS: PULMICORT IH SCH (13:52)
[2018-06-30] MEDS ORDERED: POTASSIUM CHLORIDE FEEDTUBE ONE (14:00)
[2018-06-30] MEDS: SUBLIMAZE IV PRN (14:11)
[2018-06-30] MEDS: NORCO 5/325 PO PRN ×2 (14:41→20:50)
[2018-06-30] MEDS ORDERED: MORPHINE IV ONE ×3 (14:52→16:45)
[2018-06-30] MEDS: MORPHINE ONE ×2 (15:05→15:10)
[2018-06-30] MEDS ORDERED: MORPHINE IV PRN (15:22)
[2018-06-30 16:51] LABS: BUN/Creatinine Ratio 57; Blood Urea Nitrogen 17 mg/dL (7-17); Calcium 8.8 mg/dL (8.4-10.2); Hemolysis Index 4
--- NOTE | 2018-06-30 18:58 | XRay Report ---
PROCEDURE: XR CHEST 1V AP TECHNIQUE: Chest radiograph single view. HISTORY: shortness of breath COMPARISONS: Chest x-ray and CTA 06/28/2018 . FINDINGS: Interval removal of NG tube. Bilateral nonspecific pulmonary infiltrates less consolidated in the right upper lobe, right lower lo be, left midlung, and left lower lung. Infiltrates now largely interstitial without consolidation com ponent. Cardiac silhouette size at upper limits of normal without definite evidence of vascular sheath. No pneumothorax or left pleural effusion. New small right pleural effusion with minimal blunting right CP angle IMPRESSION: Bilateral infiltrates persist but consolidation has resolved. This may reflect improvement of edema a nd/or pneumonitis New small right pleural effusion This document is electronically signed by Christopher Gandhi MD., Jun 30 2018 06:56:04 PM ET
--- NOTE | 2018-06-30 19:21 | XRay Report ---
PROCEDURE: XR ABDOMEN 1V AP TECHNIQUE: Abdominal radiograph, single view. HISTORY: abdominal pain COMPARISONS: None . FINDINGS: The bowel gas pattern is nonspecific with variably distended air-filled loops of bowel in the abdomen and pelvis. There appears to be an ileostomy in the left abdomen. There is no definite evidence of pneumoperitoneum. The bony structures are unremarkable. IMPRESSION: 1. Nonspecific bowel gas pattern. 2. Appearance of an ileostomy in the left abdomen. If there is a clinical suspicion of an acute intra-abdominal process, CT imaging would be helpful. This document is electronically signed by Simona Cruz MD., Jun 30 2018 07:19:36 PM ET
[2018-06-30] MEDS: LOVENOX SUB-Q SCH (21:55)
[2018-06-30] MEDS: MORPHINE IV PRN (22:00)
[2018-07-01] MEDS: MORPHINE IV PRN ×2 (02:43→22:47)
[2018-07-01] MEDS: KCL 10MEQ/100ML 10 MEQ/100 ML BAG IV SCH (02:46)
[2018-07-01 05:00] LABS: Hematocrit 34.1 % (30.3-42.9); Hemoglobin 11.3 gm/dl (10.1-14.3); Mean Corpuscular HGB Conc 33 % (30-34); Mean Corpuscular Volume 89 fl (79-97); Platelet Count 373 K/mm3 (140-440); Red Blood Count 3.85 M/mm3 (3.65-5.03); Red Cell Distribution Width 15.2 % (13.2-15.2)
[2018-07-01] MEDS: NORCO 5/325 PO PRN ×2 (05:02→16:33)
[2018-07-01] MEDS: FLAGYL 500 MG/100 ML 500 MG/100 ML BAG IV SCH ×2 (05:06→14:33)
[2018-07-01] MEDS: VANCOMYCIN 750 MG in NACL 0.9% 250ML 250 ML IV SCH (05:06)
[2018-07-01] MEDS: DUONEB *Not for PRN Use IH SCH ×4 (05:09→13:19)
[2018-07-01] MEDS: PULMICORT IH SCH ×2 (05:10→08:55)
[2018-07-01 05:15] LABS: BUN/Creatinine Ratio 73; Blood Urea Nitrogen 22 mg/dL (7-17); Calcium 8.8 mg/dL (8.4-10.2); Hemolysis Index 12
--- NOTE | 2018-07-01 09:22 | Progress Note ---
Assessment and Plan Assessment and plan: 58 year old woman who presented to the hospital with generalized abdominal pain. Past medical history includes tobacco abuse, current everyday smoker Diagnosis Acute hypoxic respiratory failure , now on VM 15 l/min in ICU. Transferred to ICU from [address] [place] [address] 06/28 Severe enterocolitis Purulent peritonitis Sigmoid diverticulitis with perforation of distal sigmoid colon hypokalemia, severe hyponatremia Moderate malnutrition Nicotine dependence Sepsis Acute hypoxic respiratory failure Leukocytosis worse, may be sepsis versus solumedrol given Plan Pulmonology following Repeat Lasix 40mg iv today CXR bilat infiltrates Status post ex lap, peritoneal lavage, Posey's procedure on 06/24 Electrolytes have been replaced abx per ID Obtain CT Chest lasix, oxygen supplement, breathing rx as needed DVT prophylaxis Lovenox Full code status Improving. stable to transfer back to surgical History Interval history: Patient transferred to ICU 06/28 because of acute resp failure Less Abdominal pain Shortness of breath improved Hospitalist Physical - Physical exam Narrative exam: Gen: Not in acute distress, lying in bed, HEENT: Normocephalic, atraumatic Neck: supple, no JVD Heart: S1 and S2 reg, no murmurs, rubs or gallop Lungs: Bilateral crackles, no wheeze Abd: soft, mild tender, mild distended, midline wound, ostomy pink, surgical dr perkins, Ext:No edema, no clubbing, no cyanosis Neuro: Awake,alert, oriented x 3, moves all ext, non focal Psych:Normal mood - Constitutional Vitals: Temp Pulse Resp BP Pulse Ox 98.8 F 123 H 30 H 179/92 99 06/30/18 16:00 07/01/18 08:55 07/01/18 08:55 06/30/18 14:11 07/01/18 04:00 Results - Labs CBC & Chem 7: 07/01/18 04:04 07/01/18 04:04 Labs: Laboratory Last Values WBC 26.3 K/mm3 (4.5-11.0) H 07/01/18 04:04 RBC 3.85 M/mm3 (3.65-5.03) 07/01/18 04:04 Hgb 11.3 gm/dl (10.1-14.3) 07/01/18 04:04 Hct 34.1 % (30.3-42.9) 07/01/18 04:04 MCV 89 fl (79-97) 07/01/18 04:04 MCH 29 pg (28-32) 07/01/18 04:04 MCHC 33 % (30-34) 07/01/18 04:04 RDW 15.2 % (13.2-15.2) 07/01/18 04:04 Plt Count 373 K/mm3 (140-440) 07/01/18 04:04 Add Manual Diff Complete 06/29/18 00:57 Total Counted 200 06/29/18 00:57 Seg Neutrophils % Com Writer 06/29/18 00:57 Seg Neuts % (Manual) 93.0 % (40.0-70.0) H 06/29/18 00:57 3.5 % 06/29/18 00:57 1.5 % (13.4-35.0) L 06/29/18 00:57 Reactive Lymphs % (Man) 0.5 % 06/29/18 00:57 1.5 % (0.0-7.3) 06/29/18 00:57 0 % (0.0-4.3) 06/29/18 00:57 0 % (0.0-1.8) 06/29/18 00:57 0 % 06/29/18 00:57 0 % 06/29/18 00:57 0 % 06/29/18 00:57 0 % 06/29/18 00:57 Nucleated RBC % Not Reportable 06/29/18 00:57 Seg Neutrophils # Man 26.9 K/mm3 (1.8-7.7) H 06/29/18 00:57 Band Neutrophils # 1.0 K/mm3 06/29/18 00:57 0.4 K/mm3 (1.2-5.4) L 06/29/18 00:57 Abs React Lymphs (Man) 0.1 K/mm3 06/29/18 00:57 0.4 K/mm3 (0.0-0.8) 06/29/18 00:57 0.0 K/mm3 (0.0-0.4) 06/29/18 00:57 0.0 K/mm3 (0.0-0.1) 06/29/18 00:57 0.0 K/mm3 06/29/18 00:57 0.0 K/mm3 06/29/18 00:57 0.0 K/mm3 06/29/18 00:57 Blast Cells # 0.0 K/mm3 06/29/18 00:57 WBC Morphology Not Reportable 06/29/18 00:57 WBC Morphology TNR 06/29/18 00:57 Hypersegmented Neuts Few 06/29/18 00:57 Hyposegmented Neuts Not Reportable 06/29/18 00:57 Hypogranular Neuts Not Reportable 06/29/18 00:57 Not Reportable 06/29/18 00:57 Not Reportable 06/29/18 00:57 Not Reportable 06/29/18 00:57 Not Reportable 06/29/18 00:57 Not Reportable 06/29/18 00:57 Not Reportable 06/29/18 00:57 Appears increased 06/29/18 00:57 Not Reportable 06/29/18 00:57 Plt Clumps, EDTA Not Reportable 06/29/18 00:57 Not Reportable 06/29/18 00:57 Not Reportable 06/29/18 00:57 Not Reportable 06/29/18 00:57 Plt Morphology Comment Not Reportable 06/29/18 00:57 RBC Morphology Not Reportable 06/29/18 00:57 Dimorphic RBCs Not Reportable 06/29/18 00:57 Not Reportable 06/29/18 00:57 Not Reportable 06/29/18 00:57 Not Reportable 06/29/18 00:57 Not Reportable 06/29/18 00:57 Not Reportable 06/29/18 00:57 Not Reportable 06/29/18 00:57 Not Reportable 06/29/18 00:57 Not Reportable 06/29/18 00:57 Not Reportable 06/29/18 00:57 Not Reportable 06/29/18 00:57 Not Reportable 06/29/18 00:57 Not Reportable 06/29/18 00:57 Not Reportable 06/29/18 00:57 Not Reportable 06/29/18 00:57 Not Reportable 06/29/18 00:57 Not Reportable 06/29/18 00:57 Not Reportable 06/29/18 00:57 Not Reportable 06/29/18 00:57 Not Reportable 06/29/18 00:57 Acanthocytes (Spur) Not Reportable 06/29/18 00:57 Rouleaux Not Reportable 06/29/18 00:57 Not Reportable 06/29/18 00:57 Not Reportable 06/29/18 00:57 Not Reportable 06/29/18 00:57 Not Reportable 06/29/18 00:57 Hem Pathologist Commnt No 06/29/18 00:57 PT 15.9 Sec. (12.2-14.9) H 06/24/18 11:18 INR 1.19 (0.87-1.13) H 06/24/18 11:18 APTT 31.8 Sec. (24.2-36.6) 06/24/18 11:18 POC ABG pH 7.470 (7.35-7.45) H 06/28/18 13:19 POC ABG pCO2 53.0 (35-45) H 06/28/18 13:19 POC ABG pO2 120 (80-105) H 06/28/18 13:19 POC ABG HCO3 38.6 (22-26 mml/L) 06/28/18 13:19 POC ABG Total CO2 40 (23-27mmol/L) 06/28/18 13:19 POC ABG O2 Sat 99 06/28/18 13:19 POC ABG Base Excess 15 ((-2) - (+3)mmol/L) 06/28/18 13:19 100 % 06/28/18 13:19 Sodium 147 mmol/L (137-145) H 07/01/18 04:04 Potassium 4.2 mmol/L (3.6-5.0) D 07/01/18 04:04 Chloride 104.9 mmol/L (98-107) 07/01/18 04:04 Carbon Dioxide 29 mmol/L (22-30) 07/01/18 04:04 17 mmol/L 07/01/18 04:04 BUN 22 mg/dL (7-17) H 07/01/18 04:04 0.3 mg/dL (0.7-1.2) L 07/01/18 04:04 Estimated GFR > 60 ml/min 07/01/18 04:04 73 % 07/01/18 04:04 Glucose 126 mg/dL (65-100) H 07/01/18 04:04 POC Glucose 99 (70-105) 06/30/18 12:11 Calcium 8.8 mg/dL (8.4-10.2) 07/01/18 04:04 Phosphorus 2.30 mg/dL (2.5-4.5) L D 06/30/18 16:17 Magnesium 2.00 mg/dL (1.7-2.3) 06/30/18 16:17 0.90 mg/dL (0.1-1.2) 06/25/18 06:55 1.5 mg/dL (0-0.2) H 06/24/18 11:19 0.4 mg/dL 06/24/18 11:19 AST 16 units/L (5-40) 06/25/18 06:55 ALT 21 units/L (7-56) 06/25/18 06:55 152 units/L (35-129) H 06/25/18 06:55 25.70 mg/dL (0.00-1.30) H 06/26/18 14:12 NT-Pro-B Natriuret Pep 1572 pg/mL (0-900) H 06/28/18 09:56 5.3 g/dL (6.3-8.2) L 06/25/18 06:55 2.1 g/dL (3.9-5) L 06/25/18 06:55 0.7 % 06/25/18 06:55 8 units/L (13-60) L 06/24/18 11:19 Yellow (Yellow) 06/24/18 13:00 Clear (Clear) 06/24/18 13:00 6.0 (5.0-7.0) 06/24/18 13:00 Ur Specific [place] > 1.059 (1.003-1.030) H 06/24/18 13:00 30 mg/dl mg/dL (Negative) 06/24/18 13:00 Neg mg/dL (Negative) 06/24/18 13:00 Neg mg/dL (Negative) 06/24/18 13:00 Neg (Negative) 06/24/18 13:00 Neg (Negative) 06/24/18 13:00 Neg (Negative) 06/24/18 13:00 4.0 mg/dL (<2.0) 06/24/18 13:00 Ur Leukocyte Esterase Neg (Negative) 06/24/18 13:00 2.0 /HPF (0.0-6.0) 06/24/18 13:00 2.0 /HPF (0.0-6.0) 06/24/18 13:00 U Epithel Cells (Auto) 1.0 /HPF (0-13.0) 06/24/18 13:00 1+ /HPF (Negative) 06/24/18 13:00 Vancomycin Trough < 4.0 ug/mL (5.0-20.0) L 06/30/18 16:17 Active Medications - Current Medications Current Medications: Generic Name Dose Route Start Last Admin Trade Name Freq PRN Reason Stop Dose Admin Acetaminophen 650 mg 06/24/18 14:00 Tylenol PO Q4H PRN Pain MILD(1-3)/Fever >100.5/LINK Acetaminophen/Hydrocodone Bitart 1 each 06/30/18 08:45 07/01/18 05:02 Brielle 5/325 PO 1 each Q6H PRN Administration Pain, Moderate (4-6) Albuterol 2.5 mg 06/24/18 14:00 Proventil IH Q4HRT PRN Shortness Of Breath Albuterol/Ipratropium 1 ampul 06/26/18 14:00 07/01/18 08:55 Duoneb *Not For Prn Use* IH 1 ampul Q6HRT MAURICIO Administration Budesonide 0.5 mg 06/30/18 11:30 07/01/18 08:55 Pulmicort IH 0.5 mg Q12HRT MAURICIO Administration Enoxaparin Sodium 40 mg 06/25/18 22:00 06/30/18 21:55 Lovenox SUB-Q 40 mg QDAY@2200 MAURICIO Administration Fentanyl 25 mcg 06/30/18 14:19 Sublimaze IV Q2H PRN Pain, Moderate (4-6) Furosemide 40 mg 07/01/18 09:00 Lasix IV Q12H MAURICIO Metronidazole 500 mg in 100 mls @ 100 mls/hr 06/24/18 22:00 07/01/18 05:06 Flagyl 500 Mg/100 Ml IV 100 mls/hr Q8H MAURICIO Administration Protocol Fluconazole 200 mls @ 100 mls/hr 06/26/18 14:00 06/30/18 09:40 Diflucan IV 100 mls/hr Q24HR MAURICIO Administration Protocol Cefepime HCl 2 gm in 100 mls @ 200 mls/hr 06/27/18 14:00 06/30/18 21:54 Maxipime/Ns 2 Gm/100 Ml IV 200 mls/hr Q12HR MAURICIO Administration Protocol Vancomycin HCl 1,250 mg/ 275 mls @ 166.667 mls/hr 07/01/18 10:00 Sodium Chloride IV Q12HR MAURICIO Morphine Sulfate 2 mg 06/30/18 16:36 07/01/18 02:43 Morphine IV 2 mg Q4H PRN Administration Pain , Severe (7-10) Naloxone HCl 0.1 mg 06/24/18 18:55 Narcan 0.4 Mg/1 Ml IV Q2MIN PRN Res Rate </= 8 or 02 SAT < 92% Nicotine 14 mg 06/25/18 10:00 06/30/18 09:40 Habitrol TD 14 mg QDAY MAURICIO Administration Ondansetron HCl 4 mg 06/24/18 14:00 06/29/18 04:00 Zofran IV 4 mg Q8H PRN Administration Nausea And Vomiting Pantoprazole Sodium 40 mg 06/30/18 10:00 06/30/18 09:40 Protonix PO 40 mg DAILY MAURICIO Administration Phenol 1 spray 06/25/18 13:51 Chloraseptic MM PRN PRN Sore Throat Sodium Chloride 10 ml 06/24/18 22:00 06/30/18 22:08 Sodium Chloride Flush Syringe 10 Ml IV 10 ml BID MAURICIO Administration Sodium Chloride 10 ml 06/24/18 14:00 Sodium Chloride Flush Syringe 10 Ml IV PRN PRN LINE FLUSH Nutrition/Malnutrition Assess - Dietary Evaluation Nutrition/Malnutrition Findings: Nutrition Notes Start: 06/30/18 16:45 Freq: Status: Active Protocol: Document 06/30/18 16:45 JANICE (Rec: 06/30/18 16:53 JANICE SRW- [email or web address]) Nutrition Notes Need for Assessment generated from: LOS Initial or Follow up Assessment Current Diagnosis Respiratory Failure Other Pertinent Diagnosis Severe enterocolitis, peritonitis, sigmoid diverticulitis s/p exp lap Current Diet GI soft Labs/Tests K 2.8 Pertinent Medications 10mEq KCl at 100ml/hr x 4 bags Height 5 ft 3 in Weight 49.895 kg Usual Body Weight 50 kg [place] Body Weight (kg) 52.27 BMI 19.5 Weight Status Appropriate Subjective/Other Information Pt screened for LOS. Diet advanced for breakfast this am . Pt tolerating PO, but not eating much at this time (had been NPO/cl liq for 5 days prior to diet advancement). She is amenable to ONS (Ensure and Storm). Abdominal wound vac in place. Pt encouraged to eat/drink more and to stop smoking. Scheduled for transfer to medical floor today. Burn Absent Trauma Absent #1 Nutrition Diagnosis Increased nutrient needs ( specify in comment below) Comments: protein Etiology increased demands of wound healing As Evidenced by Signs and Symptoms pt with surgical wound and eating very little Is patient on ventilator? No Is Patient Ambulatory and/or Out of Bed No REE-([facility]-confined to bed) 1262.664 Kcal/Kg value to use for calculation 35 Approximate Energy Requirements Using 1746 kcal/Kg Calculation Used for Recommendations Kcal/kg Additional Notes Pro needs 1.25-1.5g/k-75g /day Fluid needs 1ml/kcal Nutrition Intervention Change Diet Order: Continue current diet order Add Supplement/Snack (indicate name/kcal Ensure Enlive BID (chocolate /protein ) or vanilla) Storm BID Provides kCal: 890 Provides Protein (gm) 45 Goal #1 PO intake of meals plus ONS to meet 90-100% energy and pro needs Goal #2 Wound healing Anticipated Discharge Needs: Continue ONS 1-2 times daily for wound healing Follow-Up By: 07/04/18 Additional Comments F/U: intakes (meals/ONS), wt
[2018-07-01] MEDS: LASIX IV SCH ×2 (09:41→21:36)
[2018-07-01] MEDS: MAXIPIME/NS 2 GM/100 ML 2 GM/100 ML BAG IV SCH ×2 (09:41→23:56)
[2018-07-01] MEDS: DIFLUCAN 200 ML IV SCH (09:53)
[2018-07-01] MEDS: HABITROL TD SCH (09:53)
[2018-07-01] MEDS: PROTONIX PO SCH (09:53)
[2018-07-01] MEDS: SODIUM CHLORIDE FLUSH SYRINGE 10 ML IV SCH ×2 (09:54→22:52)
--- NOTE | 2018-07-01 11:34 | Progress Note ---
Assessment and Plan 58 y/o female with acute respiratory failure secondary to volume overload and possible COPD exacerbation POD 5 from Posey's Pouch for perforated viscous. 1. Will add IV solumedrol for the next 24-48 hours to attempt to cool the lungs off faster. 2. Added BID Pulmicort. Will start Brovans today and change duonebs to schedule ipratroprium and PRN albuterol 3. Wean FiO2 for sats > 88%. RT to try on cannula today 4. Limit IVF's 5. Held transfer yesterday given change with pain and elevated heart rate but today, much better and should be stable. Suggest Tele or remote tele and back to surgical floor. Subjective Date of service: 07/01/18 Principal diagnosis: peritonitis/penumonia Interval history: No acute events last night. yesterday afternoon, had some abdominal pain. Ordered stat KUB. nonspecific pattern. Improved with morphine x2 dose of 2 mg. CXR shows much improvement of fluid but now wheezing pretty good and continues to be tachycardic. Objective Vital Signs - 12hr 07/01/18 07/01/18 07/01/18 00:00 04:00 08:55 Pulse Rate [ 123 H Anterior Bilateral Throughout] Pulse Rate [ 107 H 109 H From Monitor] Respiratory 28 H 27 H Rate Respiratory 30 H Rate [Anterior Bilateral Throughout] O2 Sat by Pulse 100 99 Oximetry 07/01/18 09:05 Pulse Rate [ 129 H Anterior Bilateral Throughout] Pulse Rate [ From Monitor] Respiratory Rate Respiratory 36 H Rate [Anterior Bilateral Throughout] O2 Sat by Pulse Oximetry Constitutional: no acute distress, alert Eyes: non-icteric ENT: oropharynx moist, other (NG tube in left nare) Neck: supple Effort: normal Ascultation: Bilateral: wheezes Percussion: Bilateral: not dull Tactile fremitus: Bilateral: normal Cardiovascular: other (sinus tach) Gastrointestinal: hypoactive bowel sounds, other (mildly distended) Integumentary: normal Extremities: no cyanosis, no edema Neurologic: normal mental status, non-focal exam CBC and BMP: 07/01/18 04:04 07/01/18 04:04 ABG, PT/INR, D-dimer: ABG POC ABG pH 7.470 (7.35-7.45) H 06/28/18 13:19 POC ABG pCO2 53.0 (35-45) H 06/28/18 13:19 POC ABG pO2 120 (80-105) H 06/28/18 13:19 POC ABG HCO3 38.6 (22-26 mml/L) 06/28/18 13:19 POC ABG Total CO2 40 (23-27mmol/L) 06/28/18 13:19 POC ABG O2 Sat 99 06/28/18 13:19 PT/INR, D-dimer PT 15.9 Sec. (12.2-14.9) H 06/24/18 11:18 INR 1.19 (0.87-1.13) H 06/24/18 11:18 Abnormal lab findings: Abnormal Labs 06/24/18 06/24/18 06/24/18 11:18 11:19 11:19 WBC 19.0 H RBC MCHC 35 H RDW Plt Count 457 H Seg Neuts % (Manual) 88.0 H Lymphocytes % (Manual) 2.0 L Seg Neutrophils # Man 16.7 H Lymphocytes # (Manual) 0.4 L Monocytes # (Manual) PT 15.9 H INR 1.19 H POC ABG pH POC ABG pCO2 POC ABG pO2 Sodium 136 L Potassium 2.8 L* Chloride 96.7 L Carbon Dioxide BUN Creatinine 0.4 L Glucose 146 H POC Glucose Calcium Phosphorus Total Bilirubin 1.90 H Direct Bilirubin 1.5 H Alkaline Phosphatase 264 H C-Reactive Protein NT-Pro-B Natriuret Pep Total Protein Albumin 3.0 L Lipase 8 L Ur Specific Gary Vancomycin Trough 06/24/18 06/24/18 06/25/18 13:00 19:47 06:55 WBC 18.3 H RBC MCHC 35 H RDW Plt Count 481 H Seg Neuts % (Manual) 88.0 H Lymphocytes % (Manual) 4.0 L Seg Neutrophils # Man 16.1 H Lymphocytes # (Manual) 0.7 L Monocytes # (Manual) PT INR POC ABG pH POC ABG pCO2 POC ABG pO2 Sodium Potassium 3.5 L D Chloride Carbon Dioxide 21 L BUN Creatinine 0.3 L Glucose 166 H POC Glucose Calcium 7.4 L D Phosphorus Total Bilirubin Direct Bilirubin Alkaline Phosphatase C-Reactive Protein NT-Pro-B Natriuret Pep Total Protein Albumin Lipase Ur Specific [place] > 1.059 H Vancomycin Trough 06/25/18 06/26/18 06/26/18 06:55 11:54 11:54 WBC 19.9 H RBC 3.48 L MCHC RDW Plt Count 583 H Seg Neuts % (Manual) Lymphocytes % (Manual) Seg Neutrophils # Man Lymphocytes # (Manual) Monocytes # (Manual) PT INR POC ABG pH POC ABG pCO2 POC ABG pO2 Sodium 146 H Potassium 3.5 L Chloride 108.3 H 109.9 H Carbon Dioxide BUN Creatinine 0.4 L 0.3 L Glucose 159 H 153 H POC Glucose Calcium 7.7 L 8.2 L Phosphorus Total Bilirubin Direct Bilirubin Alkaline Phosphatase 152 H C-Reactive Protein NT-Pro-B Natriuret Pep Total Protein 5.3 L Albumin 2.1 L Lipase Ur Specific Gary Vancomycin Trough 06/26/18 06/26/18 06/27/18 14:12 20:37 02:04 WBC RBC MCHC RDW Plt Count Seg Neuts % (Manual) Lymphocytes % (Manual) Seg Neutrophils # Man Lymphocytes # (Manual) Monocytes # (Manual) PT INR POC ABG pH 7.471 H 7.458 H POC ABG pCO2 POC ABG pO2 74 L 70 L Sodium Potassium Chloride Carbon Dioxide BUN Creatinine Glucose POC Glucose Calcium Phosphorus Total Bilirubin Direct Bilirubin Alkaline Phosphatase C-Reactive Protein 25.70 H NT-Pro-B Natriuret Pep Total Protein Albumin Lipase Ur Specific Gary Vancomycin Trough 06/27/18 06/27/18 06/28/18 09:19 11:50 00:17 WBC 24.5 H 37.2 H RBC MCHC RDW 15.4 H Plt Count 583 H 657 H Seg Neuts % (Manual) 98.0 H 88.5 H Lymphocytes % (Manual) 1.0 L 4.0 L Seg Neutrophils # Man 24.0 H 32.9 H Lymphocytes # (Manual) 0.2 L Monocytes # (Manual) 1.1 H PT INR POC ABG pH POC ABG pCO2 POC ABG pO2 Sodium 146 H Potassium 3.5 L Chloride Carbon Dioxide BUN Creatinine 0.3 L Glucose 176 H POC Glucose Calcium 8.2 L Phosphorus Total Bilirubin Direct Bilirubin Alkaline Phosphatase C-Reactive Protein NT-Pro-B Natriuret Pep Total Protein Albumin Lipase Ur Specific Gary Vancomycin Trough 06/28/18 06/28/18 06/28/18 09:56 09:56 09:56 WBC 37.8 H RBC MCHC RDW 15.3 H Plt Count 634 H Seg Neuts % (Manual) Lymphocytes % (Manual) Seg Neutrophils # Man Lymphocytes # (Manual) Monocytes # (Manual) PT INR POC ABG pH POC ABG pCO2 POC ABG pO2 Sodium 146 H Potassium 2.8 L* Chloride Carbon Dioxide 31 H BUN Creatinine 0.3 L Glucose 142 H POC Glucose Calcium 8.2 L Phosphorus Total Bilirubin Direct Bilirubin Alkaline Phosphatase C-Reactive Protein NT-Pro-B Natriuret Pep 1572 H Total Protein Albumin Lipase Ur Specific Gary Vancomycin Trough 06/28/18 06/28/18 06/29/18 13:19 21:24 00:57 WBC 28.9 H RBC MCHC RDW Plt Count 681 H Seg Neuts % (Manual) 93.0 H Lymphocytes % (Manual) 1.5 L Seg Neutrophils # Man 26.9 H Lymphocytes # (Manual) 0.4 L Monocytes # (Manual) PT INR POC ABG pH 7.470 H POC ABG pCO2 53.0 H POC ABG pO2 120 H Sodium Potassium 3.0 L Chloride Carbon Dioxide 33 H BUN Creatinine 0.3 L Glucose 116 H POC Glucose Calcium 8.2 L Phosphorus Total Bilirubin Direct Bilirubin Alkaline Phosphatase C-Reactive Protein NT-Pro-B Natriuret Pep Total Protein Albumin Lipase Ur Specific [place] Vancomycin Trough 06/29/18 06/29/18 06/29/18 05:58 05:58 12:21 WBC 25.8 H RBC MCHC RDW Plt Count 661 H Seg Neuts % (Manual) Lymphocytes % (Manual) Seg Neutrophils # Man Lymphocytes # (Manual) Monocytes # (Manual) PT INR POC ABG pH POC ABG pCO2 POC ABG pO2 Sodium Potassium 2.7 L* Chloride Carbon Dioxide 35 H BUN Creatinine 0.3 L Glucose 132 H POC Glucose 130 H Calcium 8.2 L Phosphorus Total Bilirubin Direct Bilirubin Alkaline Phosphatase C-Reactive Protein NT-Pro-B Natriuret Pep Total Protein Albumin Lipase Ur Specific [place] Vancomycin Trough 06/29/18 06/29/18 06/30/18 17:53 18:52 05:02 WBC RBC MCHC RDW Plt Count Seg Neuts % (Manual) Lymphocytes % (Manual) Seg Neutrophils # Man Lymphocytes # (Manual) Monocytes # (Manual) PT INR POC ABG pH POC ABG pCO2 POC ABG pO2 Sodium Potassium 3.1 L Chloride Carbon Dioxide 33 H BUN Creatinine 0.3 L Glucose 129 H POC Glucose 109 H 106 H Calcium 8.2 L Phosphorus Total Bilirubin Direct Bilirubin Alkaline Phosphatase C-Reactive Protein NT-Pro-B Natriuret Pep Total Protein Albumin Lipase Ur Specific [place] Vancomycin Trough 06/30/18 06/30/18 06/30/18 07:19 07:19 16:17 WBC 23.1 H RBC MCHC RDW Plt Count 652 H Seg Neuts % (Manual) Lymphocytes % (Manual) Seg Neutrophils # Man Lymphocytes # (Manual) Monocytes # (Manual) PT INR POC ABG pH POC ABG pCO2 POC ABG pO2 Sodium Potassium 2.8 L* Chloride Carbon Dioxide BUN Creatinine 0.3 L Glucose 109 H POC Glucose Calcium 8.2 L Phosphorus Total Bilirubin Direct Bilirubin Alkaline Phosphatase C-Reactive Protein NT-Pro-B Natriuret Pep Total Protein Albumin Lipase Ur Specific Gary Vancomycin Trough < 4.0 L 06/30/18 06/30/18 06/30/18 16:17 16:17 19:00 WBC RBC MCHC RDW Plt Count Seg Neuts % (Manual) Lymphocytes % (Manual) Seg Neutrophils # Man Lymphocytes # (Manual) Monocytes # (Manual) PT INR POC ABG pH POC ABG pCO2 POC ABG pO2 Sodium Potassium 3.0 L 3.2 L Chloride Carbon Dioxide BUN Creatinine 0.3 L Glucose 138 H POC Glucose Calcium Phosphorus 2.30 L D Total Bilirubin Direct Bilirubin Alkaline Phosphatase C-Reactive Protein NT-Pro-B Natriuret Pep Total Protein Albumin Lipase Ur Specific [place] Vancomycin Trough 07/01/18 07/01/18 04:04 04:04 WBC 26.3 H RBC MCHC RDW Plt Count Seg Neuts % (Manual) Lymphocytes % (Manual) Seg Neutrophils # Man Lymphocytes # (Manual) Monocytes # (Manual) PT INR POC ABG pH POC ABG pCO2 POC ABG pO2 Sodium 147 H Potassium Chloride Carbon Dioxide BUN 22 H Creatinine 0.3 L Glucose 126 H POC Glucose Calcium Phosphorus Total Bilirubin Direct Bilirubin Alkaline Phosphatase C-Reactive Protein NT-Pro-B Natriuret Pep Total Protein Albumin Lipase Ur Specific Gary Vancomycin Trough
[2018-07-01] MEDS: SOLU-Medrol IV SCH ×2 (11:59→17:37)
[2018-07-01] MEDS: VANCOMYCIN 1,250 MG in NACL 0.9% 250ML 250 ML IV SCH (11:59)
--- NOTE | 2018-07-01 12:57 | Progress Note ---
Assessment and Plan 58 yo F s/p exploratory laparotomy, peritoneal lavage, Ezequiel's procedure POD 7 Plan: 1. soft diet 2. ok to dc IVF 3. IV abx per ID 4. OOB/chair. reconsult PT when off face mask 5. IS/pulm toilet. 6. DVT/GI ppx 7. PO pain control 8. supplemental O2, nebs 9. continue wound vac 10. monitor BMP 11. bowel regimen D/W Dr. Ferris and Dr. Mcrae. Thank you, please call with questions. Subjective Date of service: 07/01/18 Narrative: Pt seen and examined. Feeling better today. No n/v. Tolerating soft diet but has poor appetite. NO f/c. Objective Vital Signs - 12hr 07/01/18 07/01/18 07/01/18 04:00 08:55 09:05 Pulse Rate [ 123 H 129 H Anterior Bilateral Throughout] Pulse Rate [ 109 H From Monitor] Respiratory 27 H Rate Respiratory 30 H 36 H Rate [Anterior Bilateral Throughout] O2 Sat by Pulse 99 Oximetry - General physical appearance Narrative Exam: Gen: AAOx3. NAD CV: s1, S2+ resp; even and unlabored Abd: soft, mildly distended, NT. midline wound vac in place with good seal and no leak. ostomy pink with stool in bag. Ext: no c/c/e - Labs 07/01/18 04:04 07/01/18 04:04 Diabetes panel 06/30/18 06/30/18 07/01/18 Range/Units 16:17 19:00 04:04 Sodium 143 147 H (137-145) mmol/L Potassium 3.0 L 3.2 L 4.2 D (3.6-5.0) mmol/L Chloride 98.5 104.9 (98-107) mmol/L Carbon Dioxide 30 29 (22-30) mmol/L BUN 17 22 H (7-17) mg/dL Creatinine 0.3 L 0.3 L (0.7-1.2) mg/dL Glucose 138 H 126 H (65-100) mg/dL Calcium 8.8 8.8 (8.4-10.2) mg/dL Calcium panel 06/30/18 06/30/18 07/01/18 Range/Units 16:17 16:17 04:04 Calcium 8.8 8.8 (8.4-10.2) mg/dL Phosphorus 2.30 L D (2.5-4.5) mg/dL Pituitary panel 06/30/18 06/30/18 07/01/18 Range/Units 16:17 19:00 04:04 Sodium 143 147 H (137-145) mmol/L Potassium 3.0 L 3.2 L 4.2 D (3.6-5.0) mmol/L Chloride 98.5 104.9 (98-107) mmol/L Carbon Dioxide 30 29 (22-30) mmol/L BUN 17 22 H (7-17) mg/dL Creatinine 0.3 L 0.3 L (0.7-1.2) mg/dL Glucose 138 H 126 H (65-100) mg/dL Calcium 8.8 8.8 (8.4-10.2) mg/dL Adrenal panel 06/30/18 06/30/18 07/01/18 Range/Units 16:17 19:00 04:04 Sodium 143 147 H (137-145) mmol/L Potassium 3.0 L 3.2 L 4.2 D (3.6-5.0) mmol/L Chloride 98.5 104.9 (98-107) mmol/L Carbon Dioxide 30 29 (22-30) mmol/L BUN 17 22 H (7-17) mg/dL Creatinine 0.3 L 0.3 L (0.7-1.2) mg/dL Glucose 138 H 126 H (65-100) mg/dL Calcium 8.8 8.8 (8.4-10.2) mg/dL
[2018-07-01] MEDS: ATROVENT IH SCH ×2 (13:19→16:25)
[2018-07-01] MEDS: LOVENOX SUB-Q SCH (21:31)
[2018-07-01] MEDS: COLACE PO SCH (21:41)
[2018-07-02] MEDS: SOLU-Medrol IV SCH ×4 (00:38→21:47)
[2018-07-02] MEDS: FLAGYL 500 MG/100 ML 500 MG/100 ML BAG IV SCH ×4 (00:56→21:47)
[2018-07-02] MEDS: VANCOMYCIN 1,250 MG in NACL 0.9% 250ML 250 ML IV SCH ×3 (00:57→21:47)
[2018-07-02] MEDS: ATROVENT IH SCH ×3 (04:22→07:36)
[2018-07-02] MEDS: PULMICORT IH SCH ×3 (04:22→19:17)
[2018-07-02] MEDS: BROVANA NEBU IH SCH ×3 (04:23→19:17)
[2018-07-02] MEDS: DUONEB *Not for PRN Use IH SCH ×4 (04:27→19:56)
[2018-07-02 04:35] LABS: Hematocrit 32.8 % (30.3-42.9); Hemoglobin 10.9 gm/dl (10.1-14.3); Mean Corpuscular HGB Conc 33 % (30-34); Mean Corpuscular Volume 88 fl (79-97); Platelet Count 324 K/mm3 (140-440); Red Blood Count 3.73 M/mm3 (3.65-5.03)
[2018-07-02 04:52] LABS: BUN/Creatinine Ratio 100; Blood Urea Nitrogen 30 mg/dL (7-17); Calcium 8.4 mg/dL (8.4-10.2); Hemolysis Index 3
[2018-07-02] MEDS: MORPHINE IV PRN ×2 (06:46→12:31)
[2018-07-02] MEDS ORDERED: PROVENTIL IH PRN (07:44)
[2018-07-02] MEDS: MAXIPIME/NS 2 GM/100 ML 2 GM/100 ML BAG IV SCH ×2 (10:10→21:48)
[2018-07-02] MEDS: COLACE PO SCH ×2 (10:11→21:48)
[2018-07-02] MEDS: HABITROL TD SCH (10:11)
[2018-07-02] MEDS: PROTONIX PO SCH (10:11)
[2018-07-02] MEDS: DIFLUCAN 200 ML IV SCH (10:12)
[2018-07-02] MEDS: SODIUM CHLORIDE FLUSH SYRINGE 10 ML IV SCH ×2 (10:12→21:48)
[2018-07-02] MEDS: LASIX IV SCH (10:29)
--- NOTE | 2018-07-02 12:24 | Progress Note ---
Assessment and Plan 58 yo F s/p exploratory laparotomy, peritoneal lavage, Ezequiel's procedure POD 8 Plan: 1. soft diet 2. IV abx per ID. monitor WBC. Likely increased due to steroids 4. OOB/chair. reconsult PT 5. IS/pulm toilet. 6. DVT/GI ppx 7. PO pain control 8. supplemental O2, nebs 9. continue wound vac 10. monitor BMP 11. bowel regimen Thank you, please call with questions. Subjective Date of service: 07/02/18 Narrative: Pt seen and examined. No acute complaints. Mild RLQ abdominal pain. No f/c. Tolerating diet but poor appetite Objective Vital Signs - 12hr 07/02/18 07/02/18 07/02/18 04:55 04:56 05:59 Temperature 98.6 F Pulse Rate 115 H 117 H 115 H Pulse Rate [ Anterior Bilateral Throughout] Respiratory 17 17 Rate Respiratory Rate [Anterior Bilateral Throughout] Blood Pressure 156/84 156/84 Blood Pressure [Left] O2 Sat by Pulse 96 95 96 Oximetry 07/02/18 07/02/18 07/02/18 07:00 07:17 07:35 Temperature 98.3 F Pulse Rate 115 H 117 H Pulse Rate [ Anterior Bilateral Throughout] Respiratory 18 Rate Respiratory Rate [Anterior Bilateral Throughout] Blood Pressure Blood Pressure 157/77 [Left] O2 Sat by Pulse 97 97 Oximetry 07/02/18 07/02/18 07/02/18 07:37 07:40 07:53 Temperature Pulse Rate Pulse Rate [ 117 H 121 H Anterior Bilateral Throughout] Respiratory Rate Respiratory 20 20 Rate [Anterior Bilateral Throughout] Blood Pressure Blood Pressure [Left] O2 Sat by Pulse 97 Oximetry - General physical appearance Narrative Exam: Gen: AAOx3. NAD CV: s1, S2+ resp; even and unlabored Abd: soft, mildly distended, NT. midline wound vac in place with good seal and no leak. ostomy pink with stool in bag. Ext: no c/c/e - Labs 07/02/18 04:17 07/02/18 04:17 Diabetes panel 07/02/18 Range/Units 04:17 Sodium 145 (137-145) mmol/L Potassium 3.4 L (3.6-5.0) mmol/L Chloride 101.1 (98-107) mmol/L Carbon Dioxide 32 H (22-30) mmol/L BUN 30 H (7-17) mg/dL Creatinine 0.3 L (0.7-1.2) mg/dL Glucose 166 H (65-100) mg/dL Calcium 8.4 (8.4-10.2) mg/dL Calcium panel 07/02/18 Range/Units 04:17 Calcium 8.4 (8.4-10.2) mg/dL Pituitary panel 07/02/18 Range/Units 04:17 Sodium 145 (137-145) mmol/L Potassium 3.4 L (3.6-5.0) mmol/L Chloride 101.1 (98-107) mmol/L Carbon Dioxide 32 H (22-30) mmol/L BUN 30 H (7-17) mg/dL Creatinine 0.3 L (0.7-1.2) mg/dL Glucose 166 H (65-100) mg/dL Calcium 8.4 (8.4-10.2) mg/dL Adrenal panel 07/02/18 Range/Units 04:17 Sodium 145 (137-145) mmol/L Potassium 3.4 L (3.6-5.0) mmol/L Chloride 101.1 (98-107) mmol/L Carbon Dioxide 32 H (22-30) mmol/L BUN 30 H (7-17) mg/dL Creatinine 0.3 L (0.7-1.2) mg/dL Glucose 166 H (65-100) mg/dL Calcium 8.4 (8.4-10.2) mg/dL
--- NOTE | 2018-07-02 13:22 | Progress Note ---
Assessment and Plan Assessment and plan: 58 year old woman who presented to the hospital with generalized abdominal pain. Past medical history includes tobacco abuse, current everyday smoker Diagnosis Acute hypoxic respiratory failure , now on VM 15 l/min in ICU. Transferred to ICU from [address] [place] [address] 06/28, now transferred back to yesterday Severe enterocolitis Purulent peritonitis Sigmoid diverticulitis with perforation of distal sigmoid colon hypokalemia, severe hyponatremia Moderate malnutrition Nicotine dependence Sepsis Plan Pulmonology following Status post ex lap, peritoneal lavage, Posey's procedure on 06/24 Electrolytes have been replaced abx per ID lasix, oxygen supplement, breathing rx as needed DVT prophylaxis Lovenox Full code status Improving. History Interval history: Patient transferred to ICU 06/28 because of acute resp failure,transferred back to on 07/01 Less Abdominal pain Shortness of breath improved Hospitalist Physical - Physical exam Narrative exam: Gen: Not in acute distress, lying in bed, HEENT: Normocephalic, atraumatic Neck: supple, no JVD Heart: S1 and S2 reg, no murmurs, rubs or gallop Lungs: Bilateral crackles less, no wheeze Abd: soft, mild tender, mild distended, midline wound, ostomy pink, surgical drain, Ext:No edema, no clubbing, no cyanosis Neuro: Awake,alert, oriented x 3, moves all ext, non focal Psych:Normal mood - Constitutional Vitals: Temp Pulse Resp BP Pulse Ox 97.6 F 119 H 22 137/81 97 07/02/18 12:00 07/02/18 12:29 07/02/18 12:31 07/02/18 12:00 07/02/18 12:29 Results - Labs CBC & Chem 7: 07/02/18 04:17 07/02/18 04:17 Labs: Laboratory Last Values WBC 40.2 K/mm3 (4.5-11.0) H* 07/02/18 04:17 RBC 3.73 M/mm3 (3.65-5.03) 07/02/18 04:17 Hgb 10.9 gm/dl (10.1-14.3) 07/02/18 04:17 Hct 32.8 % (30.3-42.9) 07/02/18 04:17 MCV 88 fl (79-97) 07/02/18 04:17 MCH 29 pg (28-32) 07/02/18 04:17 MCHC 33 % (30-34) 07/02/18 04:17 RDW 15.0 % (13.2-15.2) 07/02/18 04:17 Plt Count 324 K/mm3 (140-440) 07/02/18 04:17 Add Manual Diff Complete 06/29/18 00:57 Total Counted 200 06/29/18 00:57 Seg Neutrophils % Software Tools Build Engineer 06/29/18 00:57 Seg Neuts % (Manual) 93.0 % (40.0-70.0) H 06/29/18 00:57 3.5 % 06/29/18 00:57 1.5 % (13.4-35.0) L 06/29/18 00:57 Reactive Lymphs % (Man) 0.5 % 06/29/18 00:57 1.5 % (0.0-7.3) 06/29/18 00:57 0 % (0.0-4.3) 06/29/18 00:57 0 % (0.0-1.8) 06/29/18 00:57 0 % 06/29/18 00:57 0 % 06/29/18 00:57 0 % 06/29/18 00:57 0 % 06/29/18 00:57 Nucleated RBC % Not Reportable 06/29/18 00:57 Seg Neutrophils # Man 26.9 K/mm3 (1.8-7.7) H 06/29/18 00:57 Band Neutrophils # 1.0 K/mm3 06/29/18 00:57 0.4 K/mm3 (1.2-5.4) L 06/29/18 00:57 Abs React Lymphs (Man) 0.1 K/mm3 06/29/18 00:57 0.4 K/mm3 (0.0-0.8) 06/29/18 00:57 0.0 K/mm3 (0.0-0.4) 06/29/18 00:57 0.0 K/mm3 (0.0-0.1) 06/29/18 00:57 0.0 K/mm3 06/29/18 00:57 0.0 K/mm3 06/29/18 00:57 0.0 K/mm3 06/29/18 00:57 Blast Cells # 0.0 K/mm3 06/29/18 00:57 WBC Morphology Not Reportable 06/29/18 00:57 WBC Morphology TNR 06/29/18 00:57 Hypersegmented Neuts Few 06/29/18 00:57 Hyposegmented Neuts Not Reportable 06/29/18 00:57 Hypogranular Neuts Not Reportable 06/29/18 00:57 Not Reportable 06/29/18 00:57 Not Reportable 06/29/18 00:57 Not Reportable 06/29/18 00:57 Not Reportable 06/29/18 00:57 Not Reportable 06/29/18 00:57 Not Reportable 06/29/18 00:57 Appears increased 06/29/18 00:57 Not Reportable 06/29/18 00:57 Plt Clumps, EDTA Not Reportable 06/29/18 00:57 Not Reportable 06/29/18 00:57 Not Reportable 06/29/18 00:57 Not Reportable 06/29/18 00:57 Plt Morphology Comment Not Reportable 06/29/18 00:57 RBC Morphology Not Reportable 06/29/18 00:57 Dimorphic RBCs Not Reportable 06/29/18 00:57 Not Reportable 06/29/18 00:57 Not Reportable 06/29/18 00:57 Not Reportable 06/29/18 00:57 Not Reportable 06/29/18 00:57 Not Reportable 06/29/18 00:57 Not Reportable 06/29/18 00:57 Not Reportable 06/29/18 00:57 Not Reportable 06/29/18 00:57 Not Reportable 06/29/18 00:57 Not Reportable 06/29/18 00:57 Not Reportable 06/29/18 00:57 Not Reportable 06/29/18 00:57 Not Reportable 06/29/18 00:57 Not Reportable 06/29/18 00:57 Not Reportable 06/29/18 00:57 Not Reportable 06/29/18 00:57 Not Reportable 06/29/18 00:57 Not Reportable 06/29/18 00:57 Not Reportable 06/29/18 00:57 Acanthocytes (Spur) Not Reportable 06/29/18 00:57 Rouleaux Not Reportable 06/29/18 00:57 Not Reportable 06/29/18 00:57 Not Reportable 06/29/18 00:57 Not Reportable 06/29/18 00:57 Not Reportable 06/29/18 00:57 Hem Pathologist Commnt No 06/29/18 00:57 PT 15.9 Sec. (12.2-14.9) H 06/24/18 11:18 INR 1.19 (0.87-1.13) H 06/24/18 11:18 APTT 31.8 Sec. (24.2-36.6) 06/24/18 11:18 POC ABG pH 7.470 (7.35-7.45) H 06/28/18 13:19 POC ABG pCO2 53.0 (35-45) H 06/28/18 13:19 POC ABG pO2 120 (80-105) H 06/28/18 13:19 POC ABG HCO3 38.6 (22-26 mml/L) 06/28/18 13:19 POC ABG Total CO2 40 (23-27mmol/L) 06/28/18 13:19 POC ABG O2 Sat 99 06/28/18 13:19 POC ABG Base Excess 15 ((-2) - (+3)mmol/L) 06/28/18 13:19 100 % 06/28/18 13:19 Sodium 145 mmol/L (137-145) 07/02/18 04:17 Potassium 3.4 mmol/L (3.6-5.0) L 07/02/18 04:17 Chloride 101.1 mmol/L (98-107) 07/02/18 04:17 Carbon Dioxide 32 mmol/L (22-30) H 07/02/18 04:17 15 mmol/L 07/02/18 04:17 BUN 30 mg/dL (7-17) H 07/02/18 04:17 0.3 mg/dL (0.7-1.2) L 07/02/18 04:17 Estimated GFR > 60 ml/min 07/02/18 04:17 100 % 07/02/18 04:17 Glucose 166 mg/dL (65-100) H 07/02/18 04:17 POC Glucose 190 (70-105) H 07/01/18 12:21 Calcium 8.4 mg/dL (8.4-10.2) 07/02/18 04:17 Phosphorus 2.30 mg/dL (2.5-4.5) L D 06/30/18 16:17 Magnesium 2.00 mg/dL (1.7-2.3) 06/30/18 16:17 0.90 mg/dL (0.1-1.2) 06/25/18 06:55 1.5 mg/dL (0-0.2) H 06/24/18 11:19 0.4 mg/dL 06/24/18 11:19 AST 16 units/L (5-40) 06/25/18 06:55 ALT 21 units/L (7-56) 06/25/18 06:55 152 units/L (35-129) H 06/25/18 06:55 25.70 mg/dL (0.00-1.30) H 06/26/18 14:12 NT-Pro-B Natriuret Pep 1572 pg/mL (0-900) H 06/28/18 09:56 5.3 g/dL (6.3-8.2) L 06/25/18 06:55 2.1 g/dL (3.9-5) L 06/25/18 06:55 0.7 % 06/25/18 06:55 8 units/L (13-60) L 06/24/18 11:19 Yellow (Yellow) 06/24/18 13:00 Clear (Clear) 06/24/18 13:00 6.0 (5.0-7.0) 06/24/18 13:00 Ur Specific Holiday > 1.059 (1.003-1.030) H 06/24/18 13:00 30 mg/dl mg/dL (Negative) 06/24/18 13:00 Neg mg/dL (Negative) 06/24/18 13:00 Neg mg/dL (Negative) 06/24/18 13:00 Neg (Negative) 06/24/18 13:00 Neg (Negative) 06/24/18 13:00 Neg (Negative) 06/24/18 13:00 4.0 mg/dL (<2.0) 06/24/18 13:00 Ur Leukocyte Esterase Neg (Negative) 06/24/18 13:00 2.0 /HPF (0.0-6.0) 06/24/18 13:00 2.0 /HPF (0.0-6.0) 06/24/18 13:00 U Epithel Cells (Auto) 1.0 /HPF (0-13.0) 06/24/18 13:00 1+ /HPF (Negative) 06/24/18 13:00 Vancomycin Trough < 4.0 ug/mL (5.0-20.0) L 06/30/18 16:17 Active Medications - Current Medications Current Medications: Generic Name Dose Route Start Last Admin Trade Name Freq PRN Reason Stop Dose Admin Acetaminophen 650 mg 06/24/18 14:00 Tylenol PO Q4H PRN Pain MILD(1-3)/Fever >100.5/LINK Acetaminophen/Hydrocodone Bitart 1 each 06/30/18 08:45 07/01/18 16:33 Wells 5/325 PO 1 each Q6H PRN Administration Pain, Moderate (4-6) Albuterol 2.5 mg 07/02/18 07:44 Proventil IH Q4HRT PRN Shortness Of Breath Albuterol/Ipratropium 1 ampul 07/02/18 14:00 Duoneb *Not For Prn Use* IH TIDRT [facility] Arformoterol Tartrate 15 mcg 07/02/18 20:00 Brovana Nebu IH Q12HRT MAURICIO Budesonide 0.5 mg 07/02/18 20:00 Pulmicort IH Q12HRT MAURICIO Docusate Sodium 100 mg 07/01/18 22:00 07/02/18 10:11 Colace PO 100 mg BID MAURICIO Administration Enoxaparin Sodium 40 mg 06/25/18 22:00 07/01/18 21:31 Lovenox SUB-Q 40 mg QDAY@2200 MAURICIO Administration Fentanyl 25 mcg 06/30/18 14:19 Sublimaze IV Q2H PRN Pain, Moderate (4-6) Furosemide 40 mg 07/01/18 09:00 07/02/18 10:29 Lasix IV 40 mg Q12H MAURICIO Administration Metronidazole 500 mg in 100 mls @ 100 mls/hr 06/24/18 22:00 07/02/18 07:51 Flagyl 500 Mg/100 Ml IV Infused Q8H MAURICIO Infusion Protocol Fluconazole 200 mls @ 100 mls/hr 06/26/18 14:00 07/02/18 10:12 Diflucan IV 100 mls/hr Q24HR MAURICIO Administration Protocol Cefepime HCl 2 gm in 100 mls @ 200 mls/hr 06/27/18 14:00 07/02/18 10:10 Maxipime/Ns 2 Gm/100 Ml IV 200 mls/hr Q12HR MAURICIO Administration Protocol Vancomycin HCl 1,250 mg/ 275 mls @ 166.667 mls/hr 07/01/18 10:00 07/02/18 12:18 Sodium Chloride IV 166.667 mls/hr Q12HR MAURICIO Administration Methylprednisolone Sodium Succinate 60 mg 07/01/18 12:00 07/02/18 12:12 Solu-Medrol IV 60 mg Q6HR MAURICIO Administration Morphine Sulfate 2 mg 06/30/18 16:36 07/02/18 12:31 Morphine IV 2 mg Q4H PRN Administration Pain , Severe (7-10) Naloxone HCl 0.1 mg 06/24/18 18:55 Narcan 0.4 Mg/1 Ml IV Q2MIN PRN Res Rate </= 8 or 02 SAT < 92% Nicotine 14 mg 06/25/18 10:00 07/02/18 10:11 Habitrol TD 14 mg QDAY MAURICIO Administration Ondansetron HCl 4 mg 06/24/18 14:00 06/29/18 04:00 Zofran IV 4 mg Q8H PRN Administration Nausea And Vomiting Pantoprazole Sodium 40 mg 06/30/18 10:00 07/02/18 10:11 Protonix PO 40 mg DAILY MAURICIO Administration Phenol 1 spray 06/25/18 13:51 Chloraseptic MM PRN PRN Sore Throat Sodium Chloride 10 ml 06/24/18 22:00 07/02/18 10:12 Sodium Chloride Flush Syringe 10 Ml IV 10 ml BID MAURICIO Administration Sodium Chloride 10 ml 06/24/18 14:00 Sodium Chloride Flush Syringe 10 Ml IV PRN PRN LINE FLUSH Nutrition/Malnutrition Assess - Dietary Evaluation Nutrition/Malnutrition Findings: Nutrition Notes Start: 06/30/18 16:45 Freq: Status: Active Protocol: Document 06/30/18 16:45 JANICE (Rec: 06/30/18 16:53 JANICE [place]- [email or web address]) Nutrition Notes Need for Assessment generated from: LOS Initial or Follow up Assessment Current Diagnosis Respiratory Failure Other Pertinent Diagnosis Severe enterocolitis, peritonitis, sigmoid diverticulitis s/p exp lap Current Diet GI soft Labs/Tests K 2.8 Pertinent Medications 10mEq KCl at 100ml/hr x 4 bags Height 5 ft 3 in Weight 49.895 kg Usual Body Weight 50 kg [place] Body Weight (kg) 52.27 BMI 19.5 Weight Status Appropriate Subjective/Other Information Pt screened for LOS. Diet advanced for breakfast this am . Pt tolerating PO, but not eating much at this time (had been NPO/cl liq for 5 days prior to diet advancement). She is amenable to ONS (Ensure and Storm). Abdominal wound vac in place. Pt encouraged to eat/drink more and to stop smoking. Scheduled for transfer to medical floor today. Burn Absent Trauma Absent #1 Nutrition Diagnosis Increased nutrient needs ( specify in comment below) Comments: protein Etiology increased demands of wound healing As Evidenced by Signs and Symptoms pt with surgical wound and eating very little Is patient on ventilator? No Is Patient Ambulatory and/or Out of Bed No REE-([facility]-confined to bed) 1262.664 Kcal/Kg value to use for calculation 35 Approximate Energy Requirements Using 1746 kcal/Kg Calculation Used for Recommendations Kcal/kg Additional Notes Pro needs 1.25-1.5g/k-75g /day Fluid needs 1ml/kcal Nutrition Intervention Change Diet Order: Continue current diet order Add Supplement/Snack (indicate name/kcal Ensure Enlive BID (chocolate /protein ) or vanilla) Storm BID Provides kCal: 890 Provides Protein (gm) 45 Goal #1 PO intake of meals plus ONS to meet 90-100% energy and pro needs Goal #2 Wound healing Anticipated Discharge Needs: Continue ONS 1-2 times daily for wound healing Follow-Up By: 07/04/18 Additional Comments F/U: intakes (meals/ONS), wt
--- NOTE | 2018-07-02 13:27 | Progress Note ---
Assessment and Plan 58 y/o female with acute respiratory failure secondary to volume overload and possible COPD exacerbation POD 5 from [facility] for perforated viscous. 1. Decrease steroid to 40q8 starting this afternoon. 2. Continue BID pulmicort and brovana. Pending her discharge, she should either need these as a nebulizer as an out patient or Symbicort 160 2 puffs BID with an albuterol rescue inhaler. 3. Wean FiO2 for sats > 88%. RT to try on cannula today, I spoke with them directly 4. Limit IVF's 5. OOB to chair and ambulate as much as tolerated if ok with surgery. Subjective Date of service: 07/02/18 Principal diagnosis: peritonitis/penumonia Interval history: Successful transfer to surgical floor. Stable. Still on Venti mask but sats are good. Family at bedside. No wheezing today. Tolerated steroids well. Wants to go home. Objective Vital Signs - 12hr 07/02/18 07/02/18 07/02/18 04:55 04:56 05:59 Temperature 98.6 F Pulse Rate 115 H 117 H 115 H Pulse Rate [ Anterior Bilateral Throughout] Respiratory 17 17 Rate Respiratory Rate [Abdomen] Respiratory Rate [Anterior Bilateral Throughout] Blood Pressure 156/84 156/84 Blood Pressure [Left] O2 Sat by Pulse 96 95 96 Oximetry 07/02/18 07/02/18 07/02/18 07:00 07:17 07:35 Temperature 98.3 F Pulse Rate 115 H 117 H Pulse Rate [ Anterior Bilateral Throughout] Respiratory 18 Rate Respiratory Rate [Abdomen] Respiratory Rate [Anterior Bilateral Throughout] Blood Pressure Blood Pressure 157/77 [Left] O2 Sat by Pulse 97 97 Oximetry 07/02/18 07/02/18 07/02/18 07:37 07:40 07:53 Temperature Pulse Rate Pulse Rate [ 117 H 121 H Anterior Bilateral Throughout] Respiratory Rate Respiratory Rate [Abdomen] Respiratory 20 20 Rate [Anterior Bilateral Throughout] Blood Pressure Blood Pressure [Left] O2 Sat by Pulse 97 Oximetry 07/02/18 07/02/18 07/02/18 12:00 12:29 12:30 Temperature 97.6 F Pulse Rate 97 H 119 H Pulse Rate [ Anterior Bilateral Throughout] Respiratory Rate Respiratory 20 Rate [Abdomen] Respiratory Rate [Anterior Bilateral Throughout] Blood Pressure Blood Pressure 137/81 [Left] O2 Sat by Pulse 97 Oximetry 07/02/18 12:31 Temperature Pulse Rate Pulse Rate [ Anterior Bilateral Throughout] Respiratory 22 Rate Respiratory Rate [Abdomen] Respiratory Rate [Anterior Bilateral Throughout] Blood Pressure Blood Pressure [Left] O2 Sat by Pulse Oximetry Constitutional: no acute distress, alert Eyes: non-icteric ENT: oropharynx moist, other (NG tube in left nare) Neck: supple Effort: normal Ascultation: Bilateral: wheezes, rales Percussion: Bilateral: not dull Tactile fremitus: Bilateral: normal Cardiovascular: other (sinus tach) Gastrointestinal: hypoactive bowel sounds, other (mildly distended) Integumentary: normal Extremities: no cyanosis, no edema Neurologic: normal mental status, non-focal exam CBC and BMP: 07/02/18 04:17 07/02/18 04:17 ABG, PT/INR, D-dimer: ABG POC ABG pH 7.470 (7.35-7.45) H 06/28/18 13:19 POC ABG pCO2 53.0 (35-45) H 06/28/18 13:19 POC ABG pO2 120 (80-105) H 06/28/18 13:19 POC ABG HCO3 38.6 (22-26 mml/L) 06/28/18 13:19 POC ABG Total CO2 40 (23-27mmol/L) 06/28/18 13:19 POC ABG O2 Sat 99 06/28/18 13:19 PT/INR, D-dimer PT 15.9 Sec. (12.2-14.9) H 06/24/18 11:18 INR 1.19 (0.87-1.13) H 06/24/18 11:18 Abnormal lab findings: Abnormal Labs 06/24/18 06/24/18 06/24/18 11:18 11:19 11:19 WBC 19.0 H RBC MCHC 35 H RDW Plt Count 457 H Seg Neuts % (Manual) 88.0 H Lymphocytes % (Manual) 2.0 L Seg Neutrophils # Man 16.7 H Lymphocytes # (Manual) 0.4 L Monocytes # (Manual) PT 15.9 H INR 1.19 H POC ABG pH POC ABG pCO2 POC ABG pO2 Sodium 136 L Potassium 2.8 L* Chloride 96.7 L Carbon Dioxide BUN Creatinine 0.4 L Glucose 146 H POC Glucose Calcium Phosphorus Total Bilirubin 1.90 H Direct Bilirubin 1.5 H Alkaline Phosphatase 264 H C-Reactive Protein NT-Pro-B Natriuret Pep Total Protein Albumin 3.0 L Lipase 8 L Ur Specific [place] Vancomycin Trough 06/24/18 06/24/18 06/25/18 13:00 19:47 06:55 WBC 18.3 H RBC MCHC 35 H RDW Plt Count 481 H Seg Neuts % (Manual) 88.0 H Lymphocytes % (Manual) 4.0 L Seg Neutrophils # Man 16.1 H Lymphocytes # (Manual) 0.7 L Monocytes # (Manual) PT INR POC ABG pH POC ABG pCO2 POC ABG pO2 Sodium Potassium 3.5 L D Chloride Carbon Dioxide 21 L BUN Creatinine 0.3 L Glucose 166 H POC Glucose Calcium 7.4 L D Phosphorus Total Bilirubin Direct Bilirubin Alkaline Phosphatase C-Reactive Protein NT-Pro-B Natriuret Pep Total Protein Albumin Lipase Ur Specific [place] > 1.059 H Vancomycin Trough 06/25/18 06/26/18 06/26/18 06:55 11:54 11:54 WBC 19.9 H RBC 3.48 L MCHC RDW Plt Count 583 H Seg Neuts % (Manual) Lymphocytes % (Manual) Seg Neutrophils # Man Lymphocytes # (Manual) Monocytes # (Manual) PT INR POC ABG pH POC ABG pCO2 POC ABG pO2 Sodium 146 H Potassium 3.5 L Chloride 108.3 H 109.9 H Carbon Dioxide BUN Creatinine 0.4 L 0.3 L Glucose 159 H 153 H POC Glucose Calcium 7.7 L 8.2 L Phosphorus Total Bilirubin Direct Bilirubin Alkaline Phosphatase 152 H C-Reactive Protein NT-Pro-B Natriuret Pep Total Protein 5.3 L Albumin 2.1 L Lipase Ur Specific [place] Vancomycin Trough 06/26/18 06/26/18 06/27/18 14:12 20:37 02:04 WBC RBC MCHC RDW Plt Count Seg Neuts % (Manual) Lymphocytes % (Manual) Seg Neutrophils # Man Lymphocytes # (Manual) Monocytes # (Manual) PT INR POC ABG pH 7.471 H 7.458 H POC ABG pCO2 POC ABG pO2 74 L 70 L Sodium Potassium Chloride Carbon Dioxide BUN Creatinine Glucose POC Glucose Calcium Phosphorus Total Bilirubin Direct Bilirubin Alkaline Phosphatase C-Reactive Protein 25.70 H NT-Pro-B Natriuret Pep Total Protein Albumin Lipase Ur Specific [place] Vancomycin Trough 06/27/18 06/27/18 06/28/18 09:19 11:50 00:17 WBC 24.5 H 37.2 H RBC MCHC RDW 15.4 H Plt Count 583 H 657 H Seg Neuts % (Manual) 98.0 H 88.5 H Lymphocytes % (Manual) 1.0 L 4.0 L Seg Neutrophils # Man 24.0 H 32.9 H Lymphocytes # (Manual) 0.2 L Monocytes # (Manual) 1.1 H PT INR POC ABG pH POC ABG pCO2 POC ABG pO2 Sodium 146 H Potassium 3.5 L Chloride Carbon Dioxide BUN Creatinine 0.3 L Glucose 176 H POC Glucose Calcium 8.2 L Phosphorus Total Bilirubin Direct Bilirubin Alkaline Phosphatase C-Reactive Protein NT-Pro-B Natriuret Pep Total Protein Albumin Lipase Ur Specific [place] Vancomycin Trough 06/28/18 06/28/18 06/28/18 09:56 09:56 09:56 WBC 37.8 H RBC MCHC RDW 15.3 H Plt Count 634 H Seg Neuts % (Manual) Lymphocytes % (Manual) Seg Neutrophils # Man Lymphocytes # (Manual) Monocytes # (Manual) PT INR POC ABG pH POC ABG pCO2 POC ABG pO2 Sodium 146 H Potassium 2.8 L* Chloride Carbon Dioxide 31 H BUN Creatinine 0.3 L Glucose 142 H POC Glucose Calcium 8.2 L Phosphorus Total Bilirubin Direct Bilirubin Alkaline Phosphatase C-Reactive Protein NT-Pro-B Natriuret Pep 1572 H Total Protein Albumin Lipase Ur Specific [place] Vancomycin Trough 06/28/18 06/28/18 06/29/18 13:19 21:24 00:57 WBC 28.9 H RBC MCHC RDW Plt Count 681 H Seg Neuts % (Manual) 93.0 H Lymphocytes % (Manual) 1.5 L Seg Neutrophils # Man 26.9 H Lymphocytes # (Manual) 0.4 L Monocytes # (Manual) PT INR POC ABG pH 7.470 H POC ABG pCO2 53.0 H POC ABG pO2 120 H Sodium Potassium 3.0 L Chloride Carbon Dioxide 33 H BUN Creatinine 0.3 L Glucose 116 H POC Glucose Calcium 8.2 L Phosphorus Total Bilirubin Direct Bilirubin Alkaline Phosphatase C-Reactive Protein NT-Pro-B Natriuret Pep Total Protein Albumin Lipase Ur Specific [place] Vancomycin Trough 06/29/18 06/29/18 06/29/18 05:58 05:58 12:21 WBC 25.8 H RBC MCHC RDW Plt Count 661 H Seg Neuts % (Manual) Lymphocytes % (Manual) Seg Neutrophils # Man Lymphocytes # (Manual) Monocytes # (Manual) PT INR POC ABG pH POC ABG pCO2 POC ABG pO2 Sodium Potassium 2.7 L* Chloride Carbon Dioxide 35 H BUN Creatinine 0.3 L Glucose 132 H POC Glucose 130 H Calcium 8.2 L Phosphorus Total Bilirubin Direct Bilirubin Alkaline Phosphatase C-Reactive Protein NT-Pro-B Natriuret Pep Total Protein Albumin Lipase Ur Specific [place] Vancomycin Trough 06/29/18 06/29/18 06/30/18 17:53 18:52 05:02 WBC RBC MCHC RDW Plt Count Seg Neuts % (Manual) Lymphocytes % (Manual) Seg Neutrophils # Man Lymphocytes # (Manual) Monocytes # (Manual) PT INR POC ABG pH POC ABG pCO2 POC ABG pO2 Sodium Potassium 3.1 L Chloride Carbon Dioxide 33 H BUN Creatinine 0.3 L Glucose 129 H POC Glucose 109 H 106 H Calcium 8.2 L Phosphorus Total Bilirubin Direct Bilirubin Alkaline Phosphatase C-Reactive Protein NT-Pro-B Natriuret Pep Total Protein Albumin Lipase Ur Specific [place] Vancomycin Trough 06/30/18 06/30/18 06/30/18 07:19 07:19 16:17 WBC 23.1 H RBC MCHC RDW Plt Count 652 H Seg Neuts % (Manual) Lymphocytes % (Manual) Seg Neutrophils # Man Lymphocytes # (Manual) Monocytes # (Manual) PT INR POC ABG pH POC ABG pCO2 POC ABG pO2 Sodium Potassium 2.8 L* Chloride Carbon Dioxide BUN Creatinine 0.3 L Glucose 109 H POC Glucose Calcium 8.2 L Phosphorus Total Bilirubin Direct Bilirubin Alkaline Phosphatase C-Reactive Protein NT-Pro-B Natriuret Pep Total Protein Albumin Lipase Ur Specific [place] Vancomycin Trough < 4.0 L 06/30/18 06/30/18 06/30/18 16:17 16:17 19:00 WBC RBC MCHC RDW Plt Count Seg Neuts % (Manual) Lymphocytes % (Manual) Seg Neutrophils # Man Lymphocytes # (Manual) Monocytes # (Manual) PT INR POC ABG pH POC ABG pCO2 POC ABG pO2 Sodium Potassium 3.0 L 3.2 L Chloride Carbon Dioxide BUN Creatinine 0.3 L Glucose 138 H POC Glucose Calcium Phosphorus 2.30 L D Total Bilirubin Direct Bilirubin Alkaline Phosphatase C-Reactive Protein NT-Pro-B Natriuret Pep Total Protein Albumin Lipase Ur Specific [place] Vancomycin Trough 07/01/18 07/01/18 07/01/18 04:04 04:04 12:21 WBC 26.3 H RBC MCHC RDW Plt Count Seg Neuts % (Manual) Lymphocytes % (Manual) Seg Neutrophils # Man Lymphocytes # (Manual) Monocytes # (Manual) PT INR POC ABG pH POC ABG pCO2 POC ABG pO2 Sodium 147 H Potassium Chloride Carbon Dioxide BUN 22 H Creatinine 0.3 L Glucose 126 H POC Glucose 190 H Calcium Phosphorus Total Bilirubin Direct Bilirubin Alkaline Phosphatase C-Reactive Protein NT-Pro-B Natriuret Pep Total Protein Albumin Lipase Ur Specific [place] Vancomycin Trough 07/02/18 07/02/18 04:17 04:17 WBC 40.2 H* RBC MCHC RDW Plt Count Seg Neuts % (Manual) Lymphocytes % (Manual) Seg Neutrophils # Man Lymphocytes # (Manual) Monocytes # (Manual) PT INR POC ABG pH POC ABG pCO2 POC ABG pO2 Sodium Potassium 3.4 L Chloride Carbon Dioxide 32 H BUN 30 H Creatinine 0.3 L Glucose 166 H POC Glucose Calcium Phosphorus Total Bilirubin Direct Bilirubin Alkaline Phosphatase C-Reactive Protein NT-Pro-B Natriuret Pep Total Protein Albumin Lipase Ur Specific [place] Vancomycin Trough
[2018-07-02] MEDS ORDERED: SOLU-Medrol IV SCH ×2 (14:00)
[2018-07-02] MEDS: NORCO 5/325 PO PRN (18:32)
[2018-07-02] MEDS: LOVENOX SUB-Q SCH (21:47)
[2018-07-03] MEDS: MORPHINE IV PRN ×3 (02:00→14:50)
[2018-07-03] MEDS: FLAGYL 500 MG/100 ML 500 MG/100 ML BAG IV SCH ×3 (05:52→21:14)
[2018-07-03] MEDS: SOLU-Medrol IV SCH ×3 (05:52→21:14)
[2018-07-03] MEDS: BROVANA NEBU IH SCH (08:35)
[2018-07-03] MEDS: PULMICORT IH SCH (08:35)
[2018-07-03] MEDS: DUONEB *Not for PRN Use IH SCH ×2 (08:35→14:58)
[2018-07-03] MEDS: COLACE PO SCH ×2 (09:15→21:14)
[2018-07-03] MEDS: PROTONIX PO SCH (09:15)
[2018-07-03] MEDS: HABITROL TD SCH (09:15)
--- NOTE | 2018-07-03 09:23 | XRay Report ---
AP CHEST: HISTORY: Infiltrates Bilateral infiltrates or pulmonary congestion have decreased by 50% since 06/30/18. No pleural effusion or pneumothorax. Heart size is within normal limits. IMPRESSION: Improvement in the bilateral infiltrates or congestive changes as described.
[2018-07-03 10:17] LABS: Hemoglobin 10.1 gm/dl (10.1-14.3); Mean Corpuscular HGB Conc 33 % (30-34); Mean Corpuscular Volume 88 fl (79-97); Platelet Count 434 K/mm3 (140-440); Red Blood Count 3.51 M/mm3 (3.65-5.03); Red Cell Distribution Width 15.1 % (13.2-15.2)
[2018-07-03] MEDS: DIFLUCAN 200 ML IV SCH (10:32)
[2018-07-03] MEDS: VANCOMYCIN 1,250 MG in NACL 0.9% 250ML 250 ML IV SCH ×2 (10:33→21:50)
[2018-07-03 10:40] LABS: BUN/Creatinine Ratio 110; Blood Urea Nitrogen 33 mg/dL (7-17); Calcium 8.4 mg/dL (8.4-10.2); Hemolysis Index 6
[2018-07-03] MEDS: MAXIPIME/NS 2 GM/100 ML 2 GM/100 ML BAG IV SCH ×2 (10:43→21:14)
--- NOTE | 2018-07-03 11:10 | Progress Note ---
Assessment and Plan 58 yo F s/p exploratory laparotomy, peritoneal lavage, Ezequiel's procedure POD 9 Plan: 1. clear liquid diet 2. IV abx per ID. monitor WBC. Likely increased due to steroids. Patient has been afebrile 4. OOB/chair. reconsult PT 5. IS/pulm toilet. 6. DVT/GI ppx 7. PO pain control 8. supplemental O2, nebs 9. continue wound vac 10. monitor BMP 11. bowel regimen 12. CT scan ordered by ID Thank you, please call with questions. Subjective Date of service: 07/03/18 Narrative: Pt seen and examined. No acute complaints. No f/c. States she is having some abdominal pain in right abdomen. No n/v Tolerating diet. Objective Vital Signs - 12hr 07/03/18 07/03/18 07/03/18 00:32 02:30 04:29 Temperature 98.4 F 98.0 F Pulse Rate 120 H 121 H Pulse Rate [ Anterior Bilateral Throughout] Respiratory 20 18 20 Rate Respiratory Rate [Anterior Bilateral Throughout] Blood Pressure 144/81 143/81 Blood Pressure [Left] O2 Sat by Pulse 96 93 Oximetry 07/03/18 07/03/18 07/03/18 07:00 08:23 08:34 Temperature 97.9 F Pulse Rate 121 H Pulse Rate [ Anterior Bilateral Throughout] Respiratory 20 18 Rate Respiratory Rate [Anterior Bilateral Throughout] Blood Pressure Blood Pressure 158/80 [Left] O2 Sat by Pulse 93 95 Oximetry 07/03/18 07/03/18 08:36 08:48 Temperature Pulse Rate Pulse Rate [ 118 H 118 H Anterior Bilateral Throughout] Respiratory Rate Respiratory 18 18 Rate [Anterior Bilateral Throughout] Blood Pressure Blood Pressure [Left] O2 Sat by Pulse Oximetry - General physical appearance Narrative Exam: Gen: AAOx3. NAD CV: s1, S2+ Resp; even and unlabored Abd; soft, distended, mild RLQ TTP. no r/r/g. Wound vac in place with no drainage, good seal/no leak. Ostomy pink with stool in bag Ext: no c/c/e - Labs 07/03/18 09:58 07/03/18 09:58 Diabetes panel 07/03/18 Range/Units 09:58 Sodium 142 (137-145) mmol/L Potassium 3.5 L (3.6-5.0) mmol/L Chloride 98.6 (98-107) mmol/L Carbon Dioxide 31 H (22-30) mmol/L BUN 33 H (7-17) mg/dL Creatinine 0.3 L (0.7-1.2) mg/dL Glucose 162 H (65-100) mg/dL Calcium 8.4 (8.4-10.2) mg/dL Calcium panel 07/03/18 Range/Units 09:58 Calcium 8.4 (8.4-10.2) mg/dL Pituitary panel 07/03/18 Range/Units 09:58 Sodium 142 (137-145) mmol/L Potassium 3.5 L (3.6-5.0) mmol/L Chloride 98.6 (98-107) mmol/L Carbon Dioxide 31 H (22-30) mmol/L BUN 33 H (7-17) mg/dL Creatinine 0.3 L (0.7-1.2) mg/dL Glucose 162 H (65-100) mg/dL Calcium 8.4 (8.4-10.2) mg/dL Adrenal panel 07/03/18 Range/Units 09:58 Sodium 142 (137-145) mmol/L Potassium 3.5 L (3.6-5.0) mmol/L Chloride 98.6 (98-107) mmol/L Carbon Dioxide 31 H (22-30) mmol/L BUN 33 H (7-17) mg/dL Creatinine 0.3 L (0.7-1.2) mg/dL Glucose 162 H (65-100) mg/dL Calcium 8.4 (8.4-10.2) mg/dL
[2018-07-03 11:50] LABS: Bilirubin,Urine NEG (Negative); Blood,Urine SM (Negative); Color,Urine Amber (Yellow); Mucus,Urine FEW /HPF; Protein,Urine <15 mg/dL mg/dL (Negative); Urobilinogen,Urine < 2.0 mg/dL (<2.0)
--- NOTE | 2018-07-03 12:03 | Progress Note ---
Assessment and Plan Assessment and plan: Patient is 58 yo female with Nicotine Dependence, Severe Malnutrition present to ED for evaluation. Patient presented with abdominal pain for 1 week progressively worsening symptoms over the same time frame. Pt states that her abdominal pain is 10/10, generalized, nonradiating, constant, worsened with movement. Pt denies NVD, ingestion of food/water from new or different sources, BRBPR, skin rash, or recent ill contacts. She was seen and evaluated in ED and found to have PSBO complicated by Bowel Perforation, SIRS, and severe malnutrition. Pt admitted to surgical floor. Surgery consulted in ED. Patient was taken to OR urgently. She had exploratory lap. surgeon found Sigmoid diverticulitis with perforation of distal sigmoid colon, purulent peritonitis. Peritoneal lavage and Posey's procedure was done on 06/24. Post-op was doing well, but on 06/28 developed acute resp failure was put on PBIPAP, transferred to ICU. Pulmonology consulted. she was given lasix, she improved BIPAP, discontinue d, placed on HFNC Oxygen and now on oxygen by [place]. today has worsening leukocytosis therefore CT Chest/Abd ordered. assessment: Acute hypoxic respiratory failure , now on VM 15 l/min in ICU. Transferred to ICU from [facility] surg 06/28, now transferred back to yesterday Severe enterocolitis Purulent peritonitis Sigmoid diverticulitis with perforation of distal sigmoid colon hypokalemia, severe hyponatremia Moderate malnutrition Nicotine dependence Sepsis- On Cefepime, Fluconazole,flagyl leukocytosis, worsening, WBC 48.6 today Plan Pulmonology following Status post ex lap, peritoneal lavage, Posey's procedure on 06/24 Electrolytes have been replaced abx per ID. On cefepime, fluconazole, flagyl lasix, oxygen supplement, breathing rx as needed DVT prophylaxis Lovenox Full code status discussed with surgeon and ID Physician Fu Ct chest/abd History Interval history: Patient transferred to ICU 06/28 because of acute resp failure,transferred back to on 07/01 Less Abdominal pain Shortness of breath improved Hospitalist Physical - Physical exam Narrative exam: Gen: Not in acute distress, lying in bed, HEENT: Normocephalic, atraumatic Neck: supple, no JVD Heart: S1 and S2 reg, no murmurs, rubs or gallop Lungs: Bilateral crackles less, no wheeze Abd: soft, mild tender, mild distended, midline wound, ostomy pink, surgical drain, Ext:No edema, no clubbing, no cyanosis Neuro: Awake,alert, oriented x 3, moves all ext, non focal Psych:Normal mood - Constitutional Vitals: Temp Pulse Resp BP Pulse Ox 98.1 F 118 H 20 128/72 95 07/03/18 11:41 07/03/18 11:41 07/03/18 11:41 07/03/18 11:41 07/03/18 11:41 Results - Labs CBC & Chem 7: 07/03/18 09:58 07/03/18 09:58 Labs: Laboratory Last Values WBC 48.6 K/mm3 (4.5-11.0) H* 07/03/18 09:58 RBC 3.51 M/mm3 (3.65-5.03) L 07/03/18 09:58 Hgb 10.1 gm/dl (10.1-14.3) 07/03/18 09:58 Hct 31.0 % (30.3-42.9) 07/03/18 09:58 MCV 88 fl (79-97) 07/03/18 09:58 MCH 29 pg (28-32) 07/03/18 09:58 MCHC 33 % (30-34) 07/03/18 09:58 RDW 15.1 % (13.2-15.2) 07/03/18 09:58 Plt Count 434 K/mm3 (140-440) 07/03/18 09:58 Add Manual Diff Complete 06/29/18 00:57 Total Counted 200 06/29/18 00:57 Seg Neutrophils % Vacuum Filter Operator 06/29/18 00:57 Seg Neuts % (Manual) 93.0 % (40.0-70.0) H 06/29/18 00:57 3.5 % 06/29/18 00:57 1.5 % (13.4-35.0) L 06/29/18 00:57 Reactive Lymphs % (Man) 0.5 % 06/29/18 00:57 1.5 % (0.0-7.3) 06/29/18 00:57 0 % (0.0-4.3) 06/29/18 00:57 0 % (0.0-1.8) 06/29/18 00:57 0 % 06/29/18 00:57 0 % 06/29/18 00:57 0 % 06/29/18 00:57 0 % 06/29/18 00:57 Nucleated RBC % Not Reportable 06/29/18 00:57 Seg Neutrophils # Man 26.9 K/mm3 (1.8-7.7) H 06/29/18 00:57 Band Neutrophils # 1.0 K/mm3 06/29/18 00:57 0.4 K/mm3 (1.2-5.4) L 06/29/18 00:57 Abs React Lymphs (Man) 0.1 K/mm3 06/29/18 00:57 0.4 K/mm3 (0.0-0.8) 06/29/18 00:57 0.0 K/mm3 (0.0-0.4) 06/29/18 00:57 0.0 K/mm3 (0.0-0.1) 06/29/18 00:57 0.0 K/mm3 06/29/18 00:57 0.0 K/mm3 06/29/18 00:57 0.0 K/mm3 06/29/18 00:57 Blast Cells # 0.0 K/mm3 06/29/18 00:57 WBC Morphology Not Reportable 06/29/18 00:57 WBC Morphology TNR 06/29/18 00:57 Hypersegmented Neuts Few 06/29/18 00:57 Hyposegmented Neuts Not Reportable 06/29/18 00:57 Hypogranular Neuts Not Reportable 06/29/18 00:57 Not Reportable 06/29/18 00:57 Not Reportable 06/29/18 00:57 Not Reportable 06/29/18 00:57 Not Reportable 06/29/18 00:57 Not Reportable 06/29/18 00:57 Not Reportable 06/29/18 00:57 Appears increased 06/29/18 00:57 Not Reportable 06/29/18 00:57 Plt Clumps, EDTA Not Reportable 06/29/18 00:57 Not Reportable 06/29/18 00:57 Not Reportable 06/29/18 00:57 Not Reportable 06/29/18 00:57 Plt Morphology Comment Not Reportable 06/29/18 00:57 RBC Morphology Not Reportable 06/29/18 00:57 Dimorphic RBCs Not Reportable 06/29/18 00:57 Not Reportable 06/29/18 00:57 Not Reportable 06/29/18 00:57 Not Reportable 06/29/18 00:57 Not Reportable 06/29/18 00:57 Not Reportable 06/29/18 00:57 Not Reportable 06/29/18 00:57 Not Reportable 06/29/18 00:57 Not Reportable 06/29/18 00:57 Not Reportable 06/29/18 00:57 Not Reportable 06/29/18 00:57 Not Reportable 06/29/18 00:57 Not Reportable 06/29/18 00:57 Not Reportable 06/29/18 00:57 Not Reportable 06/29/18 00:57 Not Reportable 06/29/18 00:57 Not Reportable 06/29/18 00:57 Not Reportable 06/29/18 00:57 Not Reportable 06/29/18 00:57 Not Reportable 06/29/18 00:57 Acanthocytes (Spur) Not Reportable 06/29/18 00:57 Rouleaux Not Reportable 06/29/18 00:57 Not Reportable 06/29/18 00:57 Not Reportable 06/29/18 00:57 Not Reportable 06/29/18 00:57 Not Reportable 06/29/18 00:57 Hem Pathologist Commnt No 06/29/18 00:57 PT 15.9 Sec. (12.2-14.9) H 06/24/18 11:18 INR 1.19 (0.87-1.13) H 06/24/18 11:18 APTT 31.8 Sec. (24.2-36.6) 06/24/18 11:18 POC ABG pH 7.470 (7.35-7.45) H 06/28/18 13:19 POC ABG pCO2 53.0 (35-45) H 06/28/18 13:19 POC ABG pO2 120 (80-105) H 06/28/18 13:19 POC ABG HCO3 38.6 (22-26 mml/L) 06/28/18 13:19 POC ABG Total CO2 40 (23-27mmol/L) 06/28/18 13:19 POC ABG O2 Sat 99 06/28/18 13:19 POC ABG Base Excess 15 ((-2) - (+3)mmol/L) 06/28/18 13:19 100 % 06/28/18 13:19 Sodium 142 mmol/L (137-145) 07/03/18 09:58 Potassium 3.5 mmol/L (3.6-5.0) L 07/03/18 09:58 Chloride 98.6 mmol/L (98-107) 07/03/18 09:58 Carbon Dioxide 31 mmol/L (22-30) H 07/03/18 09:58 16 mmol/L 07/03/18 09:58 BUN 33 mg/dL (7-17) H 07/03/18 09:58 0.3 mg/dL (0.7-1.2) L 07/03/18 09:58 Estimated GFR > 60 ml/min 07/03/18 09:58 110 % 07/03/18 09:58 Glucose 162 mg/dL (65-100) H 07/03/18 09:58 POC Glucose 190 (70-105) H 07/01/18 12:21 Calcium 8.4 mg/dL (8.4-10.2) 07/03/18 09:58 Phosphorus 2.30 mg/dL (2.5-4.5) L D 06/30/18 16:17 Magnesium 2.00 mg/dL (1.7-2.3) 06/30/18 16:17 0.90 mg/dL (0.1-1.2) 06/25/18 06:55 1.5 mg/dL (0-0.2) H 06/24/18 11:19 0.4 mg/dL 06/24/18 11:19 AST 16 units/L (5-40) 06/25/18 06:55 ALT 21 units/L (7-56) 06/25/18 06:55 152 units/L (35-129) H 06/25/18 06:55 13.20 mg/dL (0.00-1.30) H 07/03/18 11:07 NT-Pro-B Natriuret Pep 1572 pg/mL (0-900) H 06/28/18 09:56 5.3 g/dL (6.3-8.2) L 06/25/18 06:55 2.1 g/dL (3.9-5) L 06/25/18 06:55 0.7 % 06/25/18 06:55 8 units/L (13-60) L 06/24/18 11:19 Na (Yellow) 07/03/18 Unknown Hazy (Clear) 07/03/18 Unknown 6.0 (5.0-7.0) 07/03/18 Unknown Ur Specific [place] 1.023 (1.003-1.030) 07/03/18 Unknown <15 mg/dl mg/dL (Negative) 07/03/18 Unknown Neg mg/dL (Negative) 07/03/18 Unknown Neg mg/dL (Negative) 07/03/18 Unknown Sm (Negative) 07/03/18 Unknown Neg (Negative) 07/03/18 Unknown Neg (Negative) 07/03/18 Unknown < 2.0 mg/dL (<2.0) 07/03/18 Unknown Ur Leukocyte Esterase Neg (Negative) 07/03/18 Unknown 1.0 /HPF (0.0-6.0) 07/03/18 Unknown 3.0 /HPF (0.0-6.0) 07/03/18 Unknown U Epithel Cells (Auto) 7.0 /HPF (0-13.0) 07/03/18 Unknown 1+ /HPF (Negative) 06/24/18 13:00 Few /HPF 07/03/18 Unknown Vancomycin Trough < 4.0 ug/mL (5.0-20.0) L 06/30/18 16:17 Active Medications - Current Medications Current Medications: Generic Name Dose Route Start Last Admin Trade Name Freq PRN Reason Stop Dose Admin Acetaminophen 650 mg 06/24/18 14:00 Tylenol PO Q4H PRN Pain MILD(1-3)/Fever >100.5/LINK Acetaminophen/Hydrocodone Bitart 1 each 06/30/18 08:45 07/02/18 18:32 [place] 5/325 PO 1 each Q6H PRN Administration Pain, Moderate (4-6) Albuterol 2.5 mg 07/02/18 07:44 Proventil IH Q4HRT PRN Shortness Of Breath Albuterol/Ipratropium 1 ampul 07/02/18 14:00 07/03/18 08:35 Duoneb *Not For Prn Use* IH Not Given TIDRT MAURICIO Arformoterol Tartrate 15 mcg 07/02/18 20:00 07/03/18 08:35 Broalessandro [place] IH 15 mcg Q12HRT MAURICIO Administration Budesonide 0.5 mg 07/02/18 20:00 07/03/18 08:35 Pulmicort IH 0.5 mg Q12HRT MAURICIO Administration Docusate Sodium 100 mg 07/01/18 22:00 07/03/18 09:15 Colace PO 100 mg BID MAURICIO Administration Enoxaparin Sodium 40 mg 06/25/18 22:00 07/02/18 21:47 Lovenox SUB-Q 40 mg QDAY@2200 MAURICIO Administration Fentanyl 25 mcg 06/30/18 14:19 Sublimaze IV Q2H PRN Pain, Moderate (4-6) Metronidazole 500 mg in 100 mls @ 100 mls/hr 06/24/18 22:00 07/03/18 05:52 Flagyl 500 Mg/100 Ml IV 2,000 mls/hr Q8H MAURICIO Administration Protocol Fluconazole 200 mls @ 100 mls/hr 06/26/18 14:00 07/02/18 10:12 Diflucan IV 100 mls/hr Q24HR MAURICIO Administration Protocol Cefepime HCl 2 gm in 100 mls @ 200 mls/hr 06/27/18 14:00 07/02/18 21:48 Maxipime/Ns 2 Gm/100 Ml IV 200 mls/hr Q12HR MAURICIO Administration Protocol Vancomycin HCl 1,250 mg/ 275 mls @ 166.667 mls/hr 07/01/18 10:00 07/02/18 21:47 Sodium Chloride IV 166.667 mls/hr Q12HR MAURICIO Administration Methylprednisolone Sodium Succinate 40 mg 07/02/18 22:00 07/03/18 05:52 Solu-Medrol IV 40 mg Q8HR MAURICIO Administration Morphine Sulfate 2 mg 06/30/18 16:36 07/03/18 09:15 Morphine IV 2 mg Q4H PRN Administration Pain , Severe (7-10) Naloxone HCl 0.1 mg 06/24/18 18:55 Narcan 0.4 Mg/1 Ml IV Q2MIN PRN Res Rate </= 8 or 02 SAT < 92% Nicotine 14 mg 06/25/18 10:00 07/03/18 09:15 Habitrol TD 14 mg QDAY MAURICIO Administration Ondansetron HCl 4 mg 06/24/18 14:00 06/29/18 04:00 Zofran IV 4 mg Q8H PRN Administration Nausea And Vomiting Pantoprazole Sodium 40 mg 06/30/18 10:00 07/03/18 09:15 Protonix PO 40 mg DAILY MAURICIO Administration Phenol 1 spray 06/25/18 13:51 Chloraseptic MM PRN PRN Sore Throat Sodium Chloride 10 ml 06/24/18 22:00 07/02/18 21:48 Sodium Chloride Flush Syringe 10 Ml IV 10 ml BID MAURICIO Administration Sodium Chloride 10 ml 06/24/18 14:00 Sodium Chloride Flush Syringe 10 Ml IV PRN PRN LINE FLUSH Nutrition/Malnutrition Assess - Dietary Evaluation Nutrition/Malnutrition Findings: Nutrition Notes Start: 06/30/18 16:45 Freq: Status: Active Protocol: Document 07/03/18 10:42 JANICE (Rec: 07/03/18 10:43 JANICE [email or web address]) Nutrition Notes Need for Assessment generated from: Low BMI Current Diet GI soft + Ensure Enlive and Storm BID Subjective/Other Information Pt screened for low BMI. Pt already being monitored by JANNA. Nutrition Intervention Follow-Up By: 07/04/18 Additional Comments F/U: intakes (meals/ONS), wt
--- NOTE | 2018-07-03 12:27 | Progress Note ---
Assessment and Plan 58 y/o female with acute respiratory failure secondary to volume overload and possible COPD exacerbation POD 5 from Posey's Pouch for perforated viscous. 1. Continue steroid at 40q8 through today. CAn likely change to 60 of prednis one daily starting tomorrow or 20 IV q8 starting tomorrow. If patient is close to discharge suggest PO therapy and will need taper over 2 weeks time 60 for 4 days, 40 for 4 days 20 for 4 days, 10 for 4 days then stop. 2. Continue BID pulmicort and brovana. Pending her discharge, she should either need these as a nebulizer as an out patient or Symbicort 160 2 puffs BID with an albuterol rescue inhaler. 3. Wean FiO2 for sats > 88%. RT to try on cannula today, I spoke with them directly 4. Limit IVF's 5. OOB to chair and ambulate as much as tolerated if ok with surgery. Subjective Date of service: 07/03/18 Principal diagnosis: peritonitis/penumonia Interval history: Patient weaned to 4 liters NC and has good sats. Breathing stable. Some abdominal pain today but surgery has seen. Unsure why WC continues to increase as clinically patient is improving. Objective Vital Signs - 12hr 07/03/18 07/03/18 07/03/18 00:32 02:30 04:29 Temperature 98.4 F 98.0 F Pulse Rate 120 H 121 H Pulse Rate [ Anterior Bilateral Throughout] Respiratory 20 18 20 Rate Respiratory Rate [Anterior Bilateral Throughout] Blood Pressure 144/81 143/81 Blood Pressure [Left] O2 Sat by Pulse 96 93 Oximetry 07/03/18 07/03/18 07/03/18 07:00 08:23 08:34 Temperature 97.9 F Pulse Rate 121 H Pulse Rate [ Anterior Bilateral Throughout] Respiratory 20 18 Rate Respiratory Rate [Anterior Bilateral Throughout] Blood Pressure Blood Pressure 158/80 [Left] O2 Sat by Pulse 93 95 Oximetry 07/03/18 07/03/18 07/03/18 08:36 08:48 11:41 Temperature 98.1 F Pulse Rate 118 H Pulse Rate [ 118 H 118 H Anterior Bilateral Throughout] Respiratory 20 Rate Respiratory 18 18 Rate [Anterior Bilateral Throughout] Blood Pressure Blood Pressure 128/72 [Left] O2 Sat by Pulse 95 Oximetry Constitutional: no acute distress, alert Eyes: non-icteric ENT: oropharynx moist, other (NG tube in left nare) Neck: supple Effort: normal Ascultation: Bilateral: wheezes, rales Percussion: Bilateral: not dull Tactile fremitus: Bilateral: normal Cardiovascular: other (sinus tach) Gastrointestinal: hypoactive bowel sounds, other (mildly distended) Integumentary: normal Extremities: no cyanosis, no edema Neurologic: normal mental status, non-focal exam CBC and BMP: 07/03/18 09:58 07/03/18 09:58 ABG, PT/INR, D-dimer: ABG POC ABG pH 7.470 (7.35-7.45) H 06/28/18 13:19 POC ABG pCO2 53.0 (35-45) H 06/28/18 13:19 POC ABG pO2 120 (80-105) H 06/28/18 13:19 POC ABG HCO3 38.6 (22-26 mml/L) 06/28/18 13:19 POC ABG Total CO2 40 (23-27mmol/L) 06/28/18 13:19 POC ABG O2 Sat 99 06/28/18 13:19 PT/INR, D-dimer PT 15.9 Sec. (12.2-14.9) H 06/24/18 11:18 INR 1.19 (0.87-1.13) H 06/24/18 11:18 Abnormal lab findings: Abnormal Labs 06/24/18 06/24/18 06/24/18 11:18 11:19 11:19 WBC 19.0 H RBC MCHC 35 H RDW Plt Count 457 H Seg Neuts % (Manual) 88.0 H Lymphocytes % (Manual) 2.0 L Seg Neutrophils # Man 16.7 H Lymphocytes # (Manual) 0.4 L Monocytes # (Manual) PT 15.9 H INR 1.19 H POC ABG pH POC ABG pCO2 POC ABG pO2 Sodium 136 L Potassium 2.8 L* Chloride 96.7 L Carbon Dioxide BUN Creatinine 0.4 L Glucose 146 H POC Glucose Calcium Phosphorus Total Bilirubin 1.90 H Direct Bilirubin 1.5 H Alkaline Phosphatase 264 H C-Reactive Protein NT-Pro-B Natriuret Pep Total Protein Albumin 3.0 L Lipase 8 L Ur Specific [place] Vancomycin Trough 06/24/18 06/24/18 06/25/18 13:00 19:47 06:55 WBC 18.3 H RBC MCHC 35 H RDW Plt Count 481 H Seg Neuts % (Manual) 88.0 H Lymphocytes % (Manual) 4.0 L Seg Neutrophils # Man 16.1 H Lymphocytes # (Manual) 0.7 L Monocytes # (Manual) PT INR POC ABG pH POC ABG pCO2 POC ABG pO2 Sodium Potassium 3.5 L D Chloride Carbon Dioxide 21 L BUN Creatinine 0.3 L Glucose 166 H POC Glucose Calcium 7.4 L D Phosphorus Total Bilirubin Direct Bilirubin Alkaline Phosphatase C-Reactive Protein NT-Pro-B Natriuret Pep Total Protein Albumin Lipase Ur Specific [place] > 1.059 H Vancomycin Trough 06/25/18 06/26/18 06/26/18 06:55 11:54 11:54 WBC 19.9 H RBC 3.48 L MCHC RDW Plt Count 583 H Seg Neuts % (Manual) Lymphocytes % (Manual) Seg Neutrophils # Man Lymphocytes # (Manual) Monocytes # (Manual) PT INR POC ABG pH POC ABG pCO2 POC ABG pO2 Sodium 146 H Potassium 3.5 L Chloride 108.3 H 109.9 H Carbon Dioxide BUN Creatinine 0.4 L 0.3 L Glucose 159 H 153 H POC Glucose Calcium 7.7 L 8.2 L Phosphorus Total Bilirubin Direct Bilirubin Alkaline Phosphatase 152 H C-Reactive Protein NT-Pro-B Natriuret Pep Total Protein 5.3 L Albumin 2.1 L Lipase Ur Specific [place] Vancomycin Trough 06/26/18 06/26/18 06/27/18 14:12 20:37 02:04 WBC RBC MCHC RDW Plt Count Seg Neuts % (Manual) Lymphocytes % (Manual) Seg Neutrophils # Man Lymphocytes # (Manual) Monocytes # (Manual) PT INR POC ABG pH 7.471 H 7.458 H POC ABG pCO2 POC ABG pO2 74 L 70 L Sodium Potassium Chloride Carbon Dioxide BUN Creatinine Glucose POC Glucose Calcium Phosphorus Total Bilirubin Direct Bilirubin Alkaline Phosphatase C-Reactive Protein 25.70 H NT-Pro-B Natriuret Pep Total Protein Albumin Lipase Ur Specific [place] Vancomycin Trough 06/27/18 06/27/18 06/28/18 09:19 11:50 00:17 WBC 24.5 H 37.2 H RBC MCHC RDW 15.4 H Plt Count 583 H 657 H Seg Neuts % (Manual) 98.0 H 88.5 H Lymphocytes % (Manual) 1.0 L 4.0 L Seg Neutrophils # Man 24.0 H 32.9 H Lymphocytes # (Manual) 0.2 L Monocytes # (Manual) 1.1 H PT INR POC ABG pH POC ABG pCO2 POC ABG pO2 Sodium 146 H Potassium 3.5 L Chloride Carbon Dioxide BUN Creatinine 0.3 L Glucose 176 H POC Glucose Calcium 8.2 L Phosphorus Total Bilirubin Direct Bilirubin Alkaline Phosphatase C-Reactive Protein NT-Pro-B Natriuret Pep Total Protein Albumin Lipase Ur Specific [place] Vancomycin Trough 06/28/18 06/28/18 06/28/18 09:56 09:56 09:56 WBC 37.8 H RBC MCHC RDW 15.3 H Plt Count 634 H Seg Neuts % (Manual) Lymphocytes % (Manual) Seg Neutrophils # Man Lymphocytes # (Manual) Monocytes # (Manual) PT INR POC ABG pH POC ABG pCO2 POC ABG pO2 Sodium 146 H Potassium 2.8 L* Chloride Carbon Dioxide 31 H BUN Creatinine 0.3 L Glucose 142 H POC Glucose Calcium 8.2 L Phosphorus Total Bilirubin Direct Bilirubin Alkaline Phosphatase C-Reactive Protein NT-Pro-B Natriuret Pep 1572 H Total Protein Albumin Lipase Ur Specific [place] Vancomycin Trough 06/28/18 06/28/18 06/29/18 13:19 21:24 00:57 WBC 28.9 H RBC MCHC RDW Plt Count 681 H Seg Neuts % (Manual) 93.0 H Lymphocytes % (Manual) 1.5 L Seg Neutrophils # Man 26.9 H Lymphocytes # (Manual) 0.4 L Monocytes # (Manual) PT INR POC ABG pH 7.470 H POC ABG pCO2 53.0 H POC ABG pO2 120 H Sodium Potassium 3.0 L Chloride Carbon Dioxide 33 H BUN Creatinine 0.3 L Glucose 116 H POC Glucose Calcium 8.2 L Phosphorus Total Bilirubin Direct Bilirubin Alkaline Phosphatase C-Reactive Protein NT-Pro-B Natriuret Pep Total Protein Albumin Lipase Ur Specific [place] Vancomycin Trough 06/29/18 06/29/18 06/29/18 05:58 05:58 12:21 WBC 25.8 H RBC MCHC RDW Plt Count 661 H Seg Neuts % (Manual) Lymphocytes % (Manual) Seg Neutrophils # Man Lymphocytes # (Manual) Monocytes # (Manual) PT INR POC ABG pH POC ABG pCO2 POC ABG pO2 Sodium Potassium 2.7 L* Chloride Carbon Dioxide 35 H BUN Creatinine 0.3 L Glucose 132 H POC Glucose 130 H Calcium 8.2 L Phosphorus Total Bilirubin Direct Bilirubin Alkaline Phosphatase C-Reactive Protein NT-Pro-B Natriuret Pep Total Protein Albumin Lipase Ur Specific [place] Vancomycin Trough 06/29/18 06/29/18 06/30/18 17:53 18:52 05:02 WBC RBC MCHC RDW Plt Count Seg Neuts % (Manual) Lymphocytes % (Manual) Seg Neutrophils # Man Lymphocytes # (Manual) Monocytes # (Manual) PT INR POC ABG pH POC ABG pCO2 POC ABG pO2 Sodium Potassium 3.1 L Chloride Carbon Dioxide 33 H BUN Creatinine 0.3 L Glucose 129 H POC Glucose 109 H 106 H Calcium 8.2 L Phosphorus Total Bilirubin Direct Bilirubin Alkaline Phosphatase C-Reactive Protein NT-Pro-B Natriuret Pep Total Protein Albumin Lipase Ur Specific [place] Vancomycin Trough 06/30/18 06/30/18 06/30/18 07:19 07:19 16:17 WBC 23.1 H RBC MCHC RDW Plt Count 652 H Seg Neuts % (Manual) Lymphocytes % (Manual) Seg Neutrophils # Man Lymphocytes # (Manual) Monocytes # (Manual) PT INR POC ABG pH POC ABG pCO2 POC ABG pO2 Sodium Potassium 2.8 L* Chloride Carbon Dioxide BUN Creatinine 0.3 L Glucose 109 H POC Glucose Calcium 8.2 L Phosphorus Total Bilirubin Direct Bilirubin Alkaline Phosphatase C-Reactive Protein NT-Pro-B Natriuret Pep Total Protein Albumin Lipase Ur Specific [place] Vancomycin Trough < 4.0 L 06/30/18 06/30/18 06/30/18 16:17 16:17 19:00 WBC RBC MCHC RDW Plt Count Seg Neuts % (Manual) Lymphocytes % (Manual) Seg Neutrophils # Man Lymphocytes # (Manual) Monocytes # (Manual) PT INR POC ABG pH POC ABG pCO2 POC ABG pO2 Sodium Potassium 3.0 L 3.2 L Chloride Carbon Dioxide BUN Creatinine 0.3 L Glucose 138 H POC Glucose Calcium Phosphorus 2.30 L D Total Bilirubin Direct Bilirubin Alkaline Phosphatase C-Reactive Protein NT-Pro-B Natriuret Pep Total Protein Albumin Lipase Ur Specific [place] Vancomycin Trough 07/01/18 07/01/18 07/01/18 04:04 04:04 12:21 WBC 26.3 H RBC MCHC RDW Plt Count Seg Neuts % (Manual) Lymphocytes % (Manual) Seg Neutrophils # Man Lymphocytes # (Manual) Monocytes # (Manual) PT INR POC ABG pH POC ABG pCO2 POC ABG pO2 Sodium 147 H Potassium Chloride Carbon Dioxide BUN 22 H Creatinine 0.3 L Glucose 126 H POC Glucose 190 H Calcium Phosphorus Total Bilirubin Direct Bilirubin Alkaline Phosphatase C-Reactive Protein NT-Pro-B Natriuret Pep Total Protein Albumin Lipase Ur Specific [place] Vancomycin Trough 07/02/18 07/02/18 07/03/18 04:17 04:17 09:58 WBC 40.2 H* 48.6 H* RBC 3.51 L MCHC RDW Plt Count Seg Neuts % (Manual) Lymphocytes % (Manual) Seg Neutrophils # Man Lymphocytes # (Manual) Monocytes # (Manual) PT INR POC ABG pH POC ABG pCO2 POC ABG pO2 Sodium Potassium 3.4 L Chloride Carbon Dioxide 32 H BUN 30 H Creatinine 0.3 L Glucose 166 H POC Glucose Calcium Phosphorus Total Bilirubin Direct Bilirubin Alkaline Phosphatase C-Reactive Protein NT-Pro-B Natriuret Pep Total Protein Albumin Lipase Ur Specific [place] Vancomycin Trough 07/03/18 07/03/18 09:58 11:07 WBC RBC MCHC RDW Plt Count Seg Neuts % (Manual) Lymphocytes % (Manual) Seg Neutrophils # Man Lymphocytes # (Manual) Monocytes # (Manual) PT INR POC ABG pH POC ABG pCO2 POC ABG pO2 Sodium Potassium 3.5 L Chloride Carbon Dioxide 31 H BUN 33 H Creatinine 0.3 L Glucose 162 H POC Glucose Calcium Phosphorus Total Bilirubin Direct Bilirubin Alkaline Phosphatase C-Reactive Protein 13.20 H NT-Pro-B Natriuret Pep Total Protein Albumin Lipase Ur Specific [place] Vancomycin Trough
--- NOTE | 2018-07-03 14:16 | Cat Scan Report ---
CT CHEST WITH CONTRAST: HISTORY: Severe sepsis, leukocytosis. COMPARISON: AP chest performed the same day. TECHNIQUE: Helical CT in 1.25mm intervals following IV contrast. Sagittal and coronal reformatted images. FINDINGS: Thyroid gland: Normal. Tracheobronchial tree: Normal. Esophagus: Normal. Heart: Normal. Pericardium: Normal. Mediastinum: Normal. Lung [place]: There are bilateral groundglass infiltrates primarily affecting the upper lung zones. It is unclear if this represents infectious infiltrates or congestive changes. Pleural Spaces: Normal. Musculoskeletal: Intact. Mild osteopenia is suspected. IMPRESSION: Bilateral infiltrates as described. Pneumonia versus congestive changes.
--- NOTE | 2018-07-03 14:25 | Cat Scan Report ---
CT ABDOMEN PELVIS WITH CONTRAST: HISTORY: Severe sepsis, leukocytosis. COMPARISON: 06/24/18. TECHNIQUE: Helical CT in 1.25mm intervals following IV contrast. Sagittal and coronal reconstructions. FINDINGS: Liver: Normal. Biliary system: Normal. Pancreas: Normal. Spleen: Normal. Kidneys/ureters/bladder: There are a few scattered tiny cysts in both kidneys. No focal renal lesion or hydronephrosis. The ureters and bladder are unremarkable. Adrenal glands: Normal. Aorta: Moderate distal calcifications. No aneurysm. There appears to be mild stenosis of the distal abdominal aorta near the level of L3 which is estimated at 60-70%. There is also suggestion of a nonocclusive filling defect in the superior mesenteric vein consistent with partial thrombosis. The splenic vein, splenic confluence and portal vein are patent. IVC is grossly patent. Intestines: There are multiple mildly dilated and fluid-filled loops of small bowel throughout the abdomen. An obstructive process is difficult to exclude although this resembles an ileus. Colostomy site in the left lower quadrant is noted. The colon appears decompressed. Appendix: Not identified. Pelvic viscera: Unremarkable. Ascites: There appears to be a peripherally enhancing portion thick fluid collection in the right anterior abdomen measuring up to 9.4 cm in diameter and 0.8 cm in thickness. There is a small amount of gas within this structure. This appears to represent an abscess. There is also a small amount of fluid in the cul-de-sac in the pelvis. Adenopathy: None. Musculoskeletal: Intact. IMPRESSION: Small bowel loops are mildly dilated and fluid filled which could represent a partial obstruction or diffuse ileus. There appears to be a peripherally enhancing fluid collection containing gas in the right anterior abdomen concerning for abscess. 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
--- NOTE | 2018-07-03 19:20 | Progress Note ---
Assessment and Plan Cultures: 06/26/2018 Blood culture no growth so far Assessment: 58 y/o female with history of HTN, tobacco dependence admitted on 06/24/2018 due to a week history of severe abdominal pain, constipation and nausea. 1) Sepsis: still tachycardia and now severe leukocytosis (leukomoid reaction). Patient on IV steroids. Initial Sepsis Etiology most likely peritonitis from diverticular perforation/abscess +/- enterocolitis +/- partial SBO +/- pneumonia. Leukomoid reaction due to IV steroid however noted persistent tachycardia ? intra-abdominal collection ? leak 2) Acute fecal peritonitis from diverticular perforation/abscess: CT abdomen showed suspect diffuse moderate to severe enterocolitis with multiple air-fluid levels. Possible small bowel obstruction or high-grade incomplete obstruction. Transition point is not clearly identified but suspected in the pelvis. Small pockets of free air suggests perforation which could be related to the sigmoid colon which demonstrates diverticulosis/diverticulitis. Small amount of free fluid in the abdomen. Small to moderate fluid in the pelvis particularly around the sigmoid colon may represent developing abscesses. She was taken to the OR on 06/24/2018 for Exploratory laparotomy, Ezequiel's for perforated sigmoid diverticulitis with purulent peritonitis. No OR cultures available. CRP 25-->13. 3) Bilateral pneumonia: ?aspiration v/s HAP on cefepime and vancomycin. CTA showed scattered infiltrates identified in both lungs, this is most prominent in the right lower lung, slight bilateral effusions, no evidence of pulmonary arterial emboli . 4) Acute hypoxemic resp failure: on venti mask from pneumonia +/- COPD Recommendations: - repeat blood cultures today - CT chest, abdomen and pelvis today eval for collections or leak - continue flagyl 500mg IV every 8 hours, D9 - continue fluconazole 200 ml IV every 24 hours, D8 will increase to 400 mg IV q day - continue Cefepime and Vancomycin to cover HAP D7 - monitor leukocytosis Discussed with Dr Wilcox Will follow. Cira Villanueva MD Infectious Diseases [employer] [facility]) M [phone] O [phone] Subjective Date of service: 07/03/18 Principal diagnosis: peritonitis/penumonia Interval history: Reports feeling better, still abdominal pain 9 of 10, on NC O2, no fever x 4 days ROS limited Objective - Exam Narrative Exam: General appearance: Alert in mild resp distress on venti mask 50% Eyes: anicteric sclerae, moist conjunctivae; no lid-lag; PERRLA HENT: Atraumatic; oropharynx limited Neck: Trachea midline; supple, no thyromegaly or lymphadenopathy Lungs: bilateral scattered rhonchi CV: RRR, no murmurs Abdomen: Soft, distended midline abdomen with wound VAC, osteomy and drain Extremities: No peripheral edema or extremity lymphadenopathy Skin: Normal temperature, turgor and texture; no rash, ulcers or subcutaneous nodules Psych: no agitated. Neuro: alert and oriented x 3. Moving all extermities - Constitutional Vitals: Vital Signs Temp Pulse Resp BP Pulse Ox 98.1 F 116 H 16 128/72 95 07/03/18 11:41 07/03/18 15:09 07/03/18 15:09 07/03/18 11:41 07/03/18 11:41 Temperature -Last 24 Hours Temperature 98.1 F Temperature 97.9 F Temperature 98.0 F Temperature 98.4 F Temperature 99.0 F - Labs CBC & Chem 7: 07/03/18 09:58 07/03/18 09:58 Labs: Abnormal lab results 07/03/18 07/03/18 07/03/18 Range/Units 09:58 09:58 11:07 WBC 48.6 H* (4.5-11.0) K/mm3 RBC 3.51 L (3.65-5.03) M/mm3 Potassium 3.5 L (3.6-5.0) mmol/L Carbon Dioxide 31 H (22-30) mmol/L BUN 33 H (7-17) mg/dL Creatinine 0.3 L (0.7-1.2) mg/dL Glucose 162 H (65-100) mg/dL C-Reactive Protein 13.20 H (0.00-1.30) mg/dL
[2018-07-03] MEDS: SODIUM CHLORIDE FLUSH SYRINGE 10 ML IV SCH (21:14)
[2018-07-03] MEDS: LOVENOX SUB-Q SCH (21:14)
[2018-07-04] MEDS: MORPHINE IV PRN ×2 (00:41→09:39)
[2018-07-04 06:10] LABS: Hematocrit 30.9 % (30.3-42.9); Hemoglobin 10.3 gm/dl (10.1-14.3); Mean Corpuscular HGB Conc 33 % (30-34); Mean Corpuscular Volume 88 fl (79-97); Platelet Count 477 K/mm3 (140-440); Red Blood Count 3.53 M/mm3 (3.65-5.03)
[2018-07-04] MEDS: FLAGYL 500 MG/100 ML 500 MG/100 ML BAG IV SCH ×3 (06:11→22:17)
[2018-07-04] MEDS: SOLU-Medrol IV SCH ×3 (06:11→22:16)
[2018-07-04 06:28] LABS: BUN/Creatinine Ratio 100; Blood Urea Nitrogen 30 mg/dL (7-17); Calcium 8.6 mg/dL (8.4-10.2); Hemolysis Index 3
[2018-07-04] MEDS: HABITROL TD SCH (09:06)
[2018-07-04] MEDS: MAXIPIME/NS 2 GM/100 ML 2 GM/100 ML BAG IV SCH ×2 (09:07→22:24)
[2018-07-04] MEDS: COLACE PO SCH ×2 (09:09→22:09)
[2018-07-04] MEDS: PROTONIX PO SCH (09:09)
[2018-07-04] MEDS: DIFLUCAN 200 ML IV SCH (09:39)
[2018-07-04] MEDS: SODIUM CHLORIDE FLUSH SYRINGE 10 ML IV SCH ×2 (10:00→22:15)
[2018-07-04] MEDS: PULMICORT IH SCH ×3 (10:47→21:05)
[2018-07-04] MEDS: BROVANA NEBU IH SCH ×3 (10:47→21:05)
[2018-07-04] MEDS: DUONEB *Not for PRN Use IH SCH ×4 (10:48→21:05)
--- NOTE | 2018-07-04 11:31 | Progress Note ---
Assessment and Plan Acute bowel perforation, diverticulitis. Leukemoid reaction Status post Acute respiratory failure secondary to volume overload. Currently controlled, breathing comfortably on nasal cannula. BiPAP at the bedside if needed COPD exacerbation POD 5 from Recommendations I agree with tapering steroids Incentive spirometry Continue nebulizer therapy as needed Aspiration precautions, monitor for bowel distention DVT prophylaxis Discussed with patient in detail. All questions answered Subjective Date of service: 07/04/18 Principal diagnosis: peritonitis/penumonia Interval history: Patient reports breathing appears to be fine today. No events overnight. Still some midabdominal discomfort. No nausea or vomiting reported Objective Vital Signs - 12hr 07/03/18 07/04/18 07/04/18 23:43 00:41 04:14 Temperature 98.1 F 98.1 F Pulse Rate 121 H 118 H Pulse Rate [ Anterior Bilateral Throughout] Pulse Rate [ Bilateral] Respiratory 17 20 18 Rate Respiratory Rate [Anterior Bilateral Throughout] Respiratory Rate [Bilateral ] Blood Pressure 142/84 136/81 Blood Pressure [Left] O2 Sat by Pulse 96 98 Oximetry 07/04/18 07/04/18 07/04/18 07:25 07:29 08:02 Temperature 98.0 F Pulse Rate 119 H Pulse Rate [ Anterior Bilateral Throughout] Pulse Rate [ Bilateral] Respiratory 12 18 Rate Respiratory Rate [Anterior Bilateral Throughout] Respiratory Rate [Bilateral ] Blood Pressure 140/81 Blood Pressure 140/81 [Left] O2 Sat by Pulse 98 Oximetry 07/04/18 07/04/18 10:00 10:51 Temperature Pulse Rate Pulse Rate [ 111 H Anterior Bilateral Throughout] Pulse Rate [ 115 H Bilateral] Respiratory Rate Respiratory 18 Rate [Anterior Bilateral Throughout] Respiratory 18 Rate [Bilateral ] Blood Pressure Blood Pressure [Left] O2 Sat by Pulse 97 Oximetry Constitutional: no acute distress, alert Eyes: non-icteric ENT: oropharynx moist Neck: supple, no JVD Effort: normal Ascultation: Bilateral: clear, diminished breath sounds Percussion: Bilateral: not dull Tactile fremitus: Bilateral: normal Cardiovascular: regular rate and rhythm Gastrointestinal: hypoactive bowel sounds, soft, tender (mild), other (mildly distended) Integumentary: normal Extremities: no cyanosis, no edema Neurologic: normal mental status, non-focal exam Psychiatric: mood appropriate CBC and BMP: 07/04/18 05:37 07/04/18 05:37 ABG, PT/INR, D-dimer: ABG POC ABG pH 7.470 (7.35-7.45) H 06/28/18 13:19 POC ABG pCO2 53.0 (35-45) H 06/28/18 13:19 POC ABG pO2 120 (80-105) H 06/28/18 13:19 POC ABG HCO3 38.6 (22-26 mml/L) 06/28/18 13:19 POC ABG Total CO2 40 (23-27mmol/L) 06/28/18 13:19 POC ABG O2 Sat 99 06/28/18 13:19 PT/INR, D-dimer PT 15.9 Sec. (12.2-14.9) H 06/24/18 11:18 INR 1.19 (0.87-1.13) H 06/24/18 11:18 Abnormal lab findings: Abnormal Labs 06/24/18 06/24/18 06/24/18 11:18 11:19 11:19 WBC 19.0 H RBC MCHC 35 H RDW Plt Count 457 H Seg Neuts % (Manual) 88.0 H Lymphocytes % (Manual) 2.0 L Seg Neutrophils # Man 16.7 H Lymphocytes # (Manual) 0.4 L Monocytes # (Manual) PT 15.9 H INR 1.19 H POC ABG pH POC ABG pCO2 POC ABG pO2 Sodium 136 L Potassium 2.8 L* Chloride 96.7 L Carbon Dioxide BUN Creatinine 0.4 L Glucose 146 H POC Glucose Calcium Phosphorus Total Bilirubin 1.90 H Direct Bilirubin 1.5 H Alkaline Phosphatase 264 H C-Reactive Protein NT-Pro-B Natriuret Pep Total Protein Albumin 3.0 L Lipase 8 L Ur Specific Stanton Vancomycin Trough 06/24/18 06/24/18 06/25/18 13:00 19:47 06:55 WBC 18.3 H RBC MCHC 35 H RDW Plt Count 481 H Seg Neuts % (Manual) 88.0 H Lymphocytes % (Manual) 4.0 L Seg Neutrophils # Man 16.1 H Lymphocytes # (Manual) 0.7 L Monocytes # (Manual) PT INR POC ABG pH POC ABG pCO2 POC ABG pO2 Sodium Potassium 3.5 L D Chloride Carbon Dioxide 21 L BUN Creatinine 0.3 L Glucose 166 H POC Glucose Calcium 7.4 L D Phosphorus Total Bilirubin Direct Bilirubin Alkaline Phosphatase C-Reactive Protein NT-Pro-B Natriuret Pep Total Protein Albumin Lipase Ur Specific Stanton > 1.059 H Vancomycin Trough 06/25/18 06/26/18 06/26/18 06:55 11:54 11:54 WBC 19.9 H RBC 3.48 L MCHC RDW Plt Count 583 H Seg Neuts % (Manual) Lymphocytes % (Manual) Seg Neutrophils # Man Lymphocytes # (Manual) Monocytes # (Manual) PT INR POC ABG pH POC ABG pCO2 POC ABG pO2 Sodium 146 H Potassium 3.5 L Chloride 108.3 H 109.9 H Carbon Dioxide BUN Creatinine 0.4 L 0.3 L Glucose 159 H 153 H POC Glucose Calcium 7.7 L 8.2 L Phosphorus Total Bilirubin Direct Bilirubin Alkaline Phosphatase 152 H C-Reactive Protein NT-Pro-B Natriuret Pep Total Protein 5.3 L Albumin 2.1 L Lipase Ur Specific Stanton Vancomycin Trough 06/26/18 06/26/18 06/27/18 14:12 20:37 02:04 WBC RBC MCHC RDW Plt Count Seg Neuts % (Manual) Lymphocytes % (Manual) Seg Neutrophils # Man Lymphocytes # (Manual) Monocytes # (Manual) PT INR POC ABG pH 7.471 H 7.458 H POC ABG pCO2 POC ABG pO2 74 L 70 L Sodium Potassium Chloride Carbon Dioxide BUN Creatinine Glucose POC Glucose Calcium Phosphorus Total Bilirubin Direct Bilirubin Alkaline Phosphatase C-Reactive Protein 25.70 H NT-Pro-B Natriuret Pep Total Protein Albumin Lipase Ur Specific Stanton Vancomycin Trough 06/27/18 06/27/18 06/28/18 09:19 11:50 00:17 WBC 24.5 H 37.2 H RBC MCHC RDW 15.4 H Plt Count 583 H 657 H Seg Neuts % (Manual) 98.0 H 88.5 H Lymphocytes % (Manual) 1.0 L 4.0 L Seg Neutrophils # Man 24.0 H 32.9 H Lymphocytes # (Manual) 0.2 L Monocytes # (Manual) 1.1 H PT INR POC ABG pH POC ABG pCO2 POC ABG pO2 Sodium 146 H Potassium 3.5 L Chloride Carbon Dioxide BUN Creatinine 0.3 L Glucose 176 H POC Glucose Calcium 8.2 L Phosphorus Total Bilirubin Direct Bilirubin Alkaline Phosphatase C-Reactive Protein NT-Pro-B Natriuret Pep Total Protein Albumin Lipase Ur Specific Stanton Vancomycin Trough 06/28/18 06/28/18 06/28/18 09:56 09:56 09:56 WBC 37.8 H RBC MCHC RDW 15.3 H Plt Count 634 H Seg Neuts % (Manual) Lymphocytes % (Manual) Seg Neutrophils # Man Lymphocytes # (Manual) Monocytes # (Manual) PT INR POC ABG pH POC ABG pCO2 POC ABG pO2 Sodium 146 H Potassium 2.8 L* Chloride Carbon Dioxide 31 H BUN Creatinine 0.3 L Glucose 142 H POC Glucose Calcium 8.2 L Phosphorus Total Bilirubin Direct Bilirubin Alkaline Phosphatase C-Reactive Protein NT-Pro-B Natriuret Pep 1572 H Total Protein Albumin Lipase Ur Specific Stanton Vancomycin Trough 06/28/18 06/28/18 06/29/18 13:19 21:24 00:57 WBC 28.9 H RBC MCHC RDW Plt Count 681 H Seg Neuts % (Manual) 93.0 H Lymphocytes % (Manual) 1.5 L Seg Neutrophils # Man 26.9 H Lymphocytes # (Manual) 0.4 L Monocytes # (Manual) PT INR POC ABG pH 7.470 H POC ABG pCO2 53.0 H POC ABG pO2 120 H Sodium Potassium 3.0 L Chloride Carbon Dioxide 33 H BUN Creatinine 0.3 L Glucose 116 H POC Glucose Calcium 8.2 L Phosphorus Total Bilirubin Direct Bilirubin Alkaline Phosphatase C-Reactive Protein NT-Pro-B Natriuret Pep Total Protein Albumin Lipase Ur Specific Stanton Vancomycin Trough 06/29/18 06/29/18 06/29/18 05:58 05:58 12:21 WBC 25.8 H RBC MCHC RDW Plt Count 661 H Seg Neuts % (Manual) Lymphocytes % (Manual) Seg Neutrophils # Man Lymphocytes # (Manual) Monocytes # (Manual) PT INR POC ABG pH POC ABG pCO2 POC ABG pO2 Sodium Potassium 2.7 L* Chloride Carbon Dioxide 35 H BUN Creatinine 0.3 L Glucose 132 H POC Glucose 130 H Calcium 8.2 L Phosphorus Total Bilirubin Direct Bilirubin Alkaline Phosphatase C-Reactive Protein NT-Pro-B Natriuret Pep Total Protein Albumin Lipase Ur Specific Stanton Vancomycin Trough 06/29/18 06/29/18 06/30/18 17:53 18:52 05:02 WBC RBC MCHC RDW Plt Count Seg Neuts % (Manual) Lymphocytes % (Manual) Seg Neutrophils # Man Lymphocytes # (Manual) Monocytes # (Manual) PT INR POC ABG pH POC ABG pCO2 POC ABG pO2 Sodium Potassium 3.1 L Chloride Carbon Dioxide 33 H BUN Creatinine 0.3 L Glucose 129 H POC Glucose 109 H 106 H Calcium 8.2 L Phosphorus Total Bilirubin Direct Bilirubin Alkaline Phosphatase C-Reactive Protein NT-Pro-B Natriuret Pep Total Protein Albumin Lipase Ur Specific Stanton Vancomycin Trough 06/30/18 06/30/18 06/30/18 07:19 07:19 16:17 WBC 23.1 H RBC MCHC RDW Plt Count 652 H Seg Neuts % (Manual) Lymphocytes % (Manual) Seg Neutrophils # Man Lymphocytes # (Manual) Monocytes # (Manual) PT INR POC ABG pH POC ABG pCO2 POC ABG pO2 Sodium Potassium 2.8 L* Chloride Carbon Dioxide BUN Creatinine 0.3 L Glucose 109 H POC Glucose Calcium 8.2 L Phosphorus Total Bilirubin Direct Bilirubin Alkaline Phosphatase C-Reactive Protein NT-Pro-B Natriuret Pep Total Protein Albumin Lipase Ur Specific Stanton Vancomycin Trough < 4.0 L 06/30/18 06/30/18 06/30/18 16:17 16:17 19:00 WBC RBC MCHC RDW Plt Count Seg Neuts % (Manual) Lymphocytes % (Manual) Seg Neutrophils # Man Lymphocytes # (Manual) Monocytes # (Manual) PT INR POC ABG pH POC ABG pCO2 POC ABG pO2 Sodium Potassium 3.0 L 3.2 L Chloride Carbon Dioxide BUN Creatinine 0.3 L Glucose 138 H POC Glucose Calcium Phosphorus 2.30 L D Total Bilirubin Direct Bilirubin Alkaline Phosphatase C-Reactive Protein NT-Pro-B Natriuret Pep Total Protein Albumin Lipase Ur Specific Stanton Vancomycin Trough 07/01/18 07/01/18 07/01/18 04:04 04:04 12:21 WBC 26.3 H RBC MCHC RDW Plt Count Seg Neuts % (Manual) Lymphocytes % (Manual) Seg Neutrophils # Man Lymphocytes # (Manual) Monocytes # (Manual) PT INR POC ABG pH POC ABG pCO2 POC ABG pO2 Sodium 147 H Potassium Chloride Carbon Dioxide BUN 22 H Creatinine 0.3 L Glucose 126 H POC Glucose 190 H Calcium Phosphorus Total Bilirubin Direct Bilirubin Alkaline Phosphatase C-Reactive Protein NT-Pro-B Natriuret Pep Total Protein Albumin Lipase Ur Specific Stanton Vancomycin Trough 07/02/18 07/02/18 07/03/18 04:17 04:17 09:58 WBC 40.2 H* 48.6 H* RBC 3.51 L MCHC RDW Plt Count Seg Neuts % (Manual) Lymphocytes % (Manual) Seg Neutrophils # Man Lymphocytes # (Manual) Monocytes # (Manual) PT INR POC ABG pH POC ABG pCO2 POC ABG pO2 Sodium Potassium 3.4 L Chloride Carbon Dioxide 32 H BUN 30 H Creatinine 0.3 L Glucose 166 H POC Glucose Calcium Phosphorus Total Bilirubin Direct Bilirubin Alkaline Phosphatase C-Reactive Protein NT-Pro-B Natriuret Pep Total Protein Albumin Lipase Ur Specific Stanton Vancomycin Trough 07/03/18 07/03/18 07/04/18 09:58 11:07 05:37 WBC 48.5 H* RBC 3.53 L MCHC RDW Plt Count 477 H Seg Neuts % (Manual) Lymphocytes % (Manual) Seg Neutrophils # Man Lymphocytes # (Manual) Monocytes # (Manual) PT INR POC ABG pH POC ABG pCO2 POC ABG pO2 Sodium Potassium 3.5 L Chloride Carbon Dioxide 31 H BUN 33 H Creatinine 0.3 L Glucose 162 H POC Glucose Calcium Phosphorus Total Bilirubin Direct Bilirubin Alkaline Phosphatase C-Reactive Protein 13.20 H NT-Pro-B Natriuret Pep Total Protein Albumin Lipase Ur Specific Stanton Vancomycin Trough 07/04/18 05:37 WBC RBC MCHC RDW Plt Count Seg Neuts % (Manual) Lymphocytes % (Manual) Seg Neutrophils # Man Lymphocytes # (Manual) Monocytes # (Manual) PT INR POC ABG pH POC ABG pCO2 POC ABG pO2 Sodium Potassium 3.4 L Chloride Carbon Dioxide 32 H BUN 30 H Creatinine 0.3 L Glucose 146 H POC Glucose Calcium Phosphorus Total Bilirubin Direct Bilirubin Alkaline Phosphatase C-Reactive Protein NT-Pro-B Natriuret Pep Total Protein Albumin Lipase Ur Specific Stanton Vancomycin Trough
--- NOTE | 2018-07-04 11:35 | Progress Note ---
Assessment and Plan Cultures: 06/26/2018 Blood culture no growth so far 07/03/2018 Blood culture pending Assessment: 58 y/o female with history of HTN, tobacco dependence admitted on 06/24/2018 due to a week history of severe abdominal pain, constipation and nausea. 1) Sepsis: still tachycardia and now severe leukocytosis (leukomoid reaction). Patient on IV steroids. Initial Sepsis Etiology most likely peritonitis from diverticular perforation/abscess +/- enterocolitis +/- partial SBO +/- pneumonia. Leukomoid reaction due to IV steroid however noted persistent tachycardia ? intra-abdominal collection 2) Acute fecal peritonitis from diverticular perforation/abscess: CT abdomen showed suspect diffuse moderate to severe enterocolitis with multiple air-fluid levels. Possible small bowel obstruction or high-grade incomplete obstruction. Transition point is not clearly identified but suspected in the pelvis. Small pockets of free air suggests perforation which could be related to the sigmoid colon which demonstrates diverticulosis/diverticulitis. Small amount of free fluid in the abdomen. Small to moderate fluid in the pelvis particularly around the sigmoid colon may represent developing abscesses. She was taken to the OR on 06/24/2018 for Exploratory laparotomy, Ezequiel's for perforated sigmoid diverticulitis with purulent peritonitis. No OR cultures available. CRP 25-->13. Repeat CT abdomen showed a peripherally enhancing portion thick fluid collection in the right anterior abdomen measuring up to 9.4 cm x 0.8 cm in thickness. There is a small amount of gas within this structure. This appears to represent an abscess. There is also a small amount of fluid in the cul-de-sac in the pelvis. Small bowel loops are mildly dilated and fluid filled which could represent a partial obstruction or diffuse ileus. 3) Bilateral pneumonia: ?aspiration v/s HAP on cefepime and vancomycin. CTA showed scattered infiltrates identified in both lungs, this is most prominent in the right lower lung, slight bilateral effusions, no evidence of pulmonary arterial emboli . 4) Acute hypoxemic resp failure: on venti mask from pneumonia +/- COPD Recommendations: - agree with IR consult for possible drainage - taper down steroids - follow-up repeat blood cultures - continue flagyl 500mg IV every 8 hours, D10 - continue fluconazole 400 mg - continue Cefepime and Vancomycin to cover HAP D8 - monitor leukocytosis Discussed with Dr Wilcox Will follow. Cira Villanueva MD Infectious Diseases [employer] [facility] ([facility]) M [phone] O [phone] Subjective Date of service: 07/04/18 Principal diagnosis: peritonitis/penumonia Interval history: Reports feeling better, abd pain better, on NC O2, no fever x 5 days ROS limited Objective - Exam Narrative Exam: General appearance: Alert in mild resp distress on venti mask 50% Eyes: anicteric sclerae, moist conjunctivae; no lid-lag; PERRLA HENT: Atraumatic; oropharynx limited Neck: Trachea midline; supple, no thyromegaly or lymphadenopathy Lungs: bilateral scattered rhonchi CV: RRR, no murmurs Abdomen: Soft, distended midline abdomen with wound VAC, osteomy and drain Extremities: No peripheral edema or extremity lymphadenopathy Skin: Normal temperature, turgor and texture; no rash, ulcers or subcutaneous nodules Psych: no agitated. Neuro: alert and oriented x 3. Moving all extermities - Constitutional Vitals: Vital Signs Temp Pulse Resp BP Pulse Ox 98.0 F 115 H 18 140/81 97 07/04/18 07:29 07/04/18 10:51 07/04/18 10:51 07/04/18 07:29 07/04/18 10:00 Temperature -Last 24 Hours Temperature 98.0 F Temperature 98.1 F Temperature 98.1 F Temperature 98.2 F Temperature 98.1 F - Labs CBC & Chem 7: 07/04/18 05:37 07/04/18 05:37 Labs: Abnormal lab results 07/03/18 07/04/18 07/04/18 Range/Units 11:07 05:37 05:37 WBC 48.5 H* (4.5-11.0) K/mm3 RBC 3.53 L (3.65-5.03) M/mm3 Plt Count 477 H (140-440) K/mm3 Potassium 3.4 L (3.6-5.0) mmol/L Carbon Dioxide 32 H (22-30) mmol/L BUN 30 H (7-17) mg/dL Creatinine 0.3 L (0.7-1.2) mg/dL Glucose 146 H (65-100) mg/dL C-Reactive Protein 13.20 H (0.00-1.30) mg/dL
--- NOTE | 2018-07-04 11:45 | Consultation ---
History of Present Illness - Reason for Consult Consult date: 07/04/18 abdominal pain, abdominal fluid collection - History of Present Illness Patient presented with a initial history of abdominal pain and was noted on CT scan to have signs consistent with perforated viscus. Patient was taken for an exploratory laparotomy and was discovered to have perforated sigmoid diverticulitis. Patient continues to have abdominal pain and a repeat CT scan was performed. This demonstrates a thin curvilinear area of fluid collection which may represent an abscess in the right upper quadrant. Additionally, there is a minimal amount of fluid in the posterior cul-de-sac. 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 I reviewed the CT scan also demonstrates differential perfusion of the small bowel with decreased perfusion on both immediate and delayed imaging in the right lower quadrant. Past History Past Medical History: other (malnutrition) Past Surgical History: No surgical history, Other (reviewed) Social history: single, smoking Family history: no significant family history (reviewed) Medications and Allergies Allergies Allergy/AdvReac Type Severity Reaction Status Date / Time No Known Allergies Allergy Unverified 06/24/18 10:41 Home Medications Medication Instructions Recorded Confirmed Last Taken Type No Known Home Medications [No 06/27/18 06/27/18 Unknown History Reported Home Medications] Active Meds: Active Medications Acetaminophen (Tylenol) 650 mg PO Q4H PRN PRN Reason: Pain MILD(1-3)/Fever >100.5/LINK Acetaminophen/Hydrocodone Bitart ([place] 5/325) 1 each PO Q6H PRN PRN Reason: Pain, Moderate (4-6) Last Admin: 07/02/18 18:32 Dose: 1 each Documented by: Albuterol (Proventil) 2.5 mg IH Q4HRT PRN PRN Reason: Shortness Of Breath Albuterol/Ipratropium (Duoneb *Not For Prn Use*) 1 ampul IH TIDRT [facility] Last Admin: 07/04/18 10:49 Dose: Not Given Documented by: Arformoterol Tartrate (Brovana Nebu) 15 mcg IH Q12HRT [facility] Last Admin: 07/04/18 10:48 Dose: Not Given Documented by: Budesonide (Pulmicort) 0.5 mg IH Q12HRT [facility] Last Admin: 07/04/18 10:49 Dose: Not Given Documented by: Docusate Sodium (Colace) 100 mg PO BID [facility] Last Admin: 07/04/18 09:09 Dose: Not Given Documented by: Enoxaparin Sodium (Lovenox) 40 mg SUB-Q QDAY@2200 [facility] Last Admin: 07/03/18 21:14 Dose: 40 mg Documented by: Fentanyl (Sublimaze) 25 mcg IV Q2H PRN PRN Reason: Pain, Moderate (4-6) Metronidazole (Flagyl 500 Mg/100 Ml) 500 mg in 100 mls @ 100 mls/hr IV Q8H [facility]; Protocol Last Admin: 07/04/18 06:11 Dose: 2,000 mls/hr Documented by: Fluconazole (Diflucan) 200 mls @ 100 mls/hr IV Q24HR [facility]; Protocol Last Admin: 07/04/18 09:39 Dose: 100 mls/hr Documented by: Cefepime HCl (Maxipime/Ns 2 Gm/100 Ml) 2 gm in 100 mls @ 200 mls/hr IV Q12HR [facility]; Protocol Last Admin: 07/04/18 09:07 Dose: 200 mls/hr Documented by: Vancomycin HCl 1,250 mg/ (Sodium Chloride) 275 mls @ 166.667 mls/hr IV Q8H [facility] Methylprednisolone Sodium Succinate (Solu-Medrol) 40 mg IV Q8HR [facility] Last Admin: 07/04/18 06:11 Dose: 40 mg Documented by: Morphine Sulfate (Morphine) 2 mg IV Q4H PRN PRN Reason: Pain , Severe (7-10) Last Admin: 07/04/18 09:39 Dose: 2 mg Documented by: Naloxone HCl (Narcan 0.4 Mg/1 Ml) 0.1 mg IV Q2MIN PRN PRN Reason: Res Rate </= 8 or 02 SAT < 92% Nicotine (Habitrol) 14 mg TD QDAY [facility] Last Admin: 07/04/18 09:06 Dose: 14 mg Documented by: Ondansetron HCl (Zofran) 4 mg IV Q8H PRN PRN Reason: Nausea And Vomiting Last Admin: 06/29/18 04:00 Dose: 4 mg Documented by: Pantoprazole Sodium (Protonix) 40 mg PO DAILY [facility] Last Admin: 07/04/18 09:09 Dose: Not Given Documented by: Phenol (Chloraseptic) 1 spray MM PRN PRN PRN Reason: Sore Throat Sodium Chloride (Sodium Chloride Flush Syringe 10 Ml) 10 ml IV BID [facility] Last Admin: 07/03/18 21:14 Dose: 10 ml Documented by: Sodium Chloride (Sodium Chloride Flush Syringe 10 Ml) 10 ml IV PRN PRN PRN Reason: LINE FLUSH Review of Systems All systems: negative Exam - Constitutional Vitals: Temp Pulse Resp BP Pulse Ox 98.0 F 115 H 18 140/81 97 07/04/18 07:29 07/04/18 10:51 07/04/18 10:51 07/04/18 07:29 07/04/18 10:00 General appearance: Present: no acute distress - EENT Eyes: Present: EOM intact ENT: hearing intact - Neck Neck: Present: supple - Respiratory Respiratory effort: normal - Abdominal General gastrointestinal: Present: distended - Rectal Rectal Exam: deferred - Psychiatric Psychiatric: cooperative Results - Labs CBC & Chem 7: 07/04/18 05:37 07/04/18 05:37 Labs: Abnormal lab results 07/03/18 07/04/18 07/04/18 Range/Units 11:07 05:37 05:37 WBC 48.5 H* (4.5-11.0) K/mm3 RBC 3.53 L (3.65-5.03) M/mm3 Plt Count 477 H (140-440) K/mm3 Potassium 3.4 L (3.6-5.0) mmol/L Carbon Dioxide 32 H (22-30) mmol/L BUN 30 H (7-17) mg/dL Creatinine 0.3 L (0.7-1.2) mg/dL Glucose 146 H (65-100) mg/dL C-Reactive Protein 13.20 H (0.00-1.30) mg/dL Assessment and Plan Given the patient's differential perfusion in the bowel in the right lower quadrant and the presence of SMV thrombus, I have ordered a CTA of the abdomen and pelvis and both arterial and venous phases. If the patient's bowel appears to be relatively normally perfused, would consider aspiration of the patient's curvilinear anterior abdominal wall fluid collection for at least culture and sensitivity. Given the presence of SMV thrombus, if the patient is able to tolerate anticoagulation, would recommend anticoagulation
--- NOTE | 2018-07-04 12:05 | Progress Note ---
Assessment and Plan 58 yo F s/p exploratory laparotomy, peritoneal lavage, Ezequiel's procedure POD 10 Ct scan A/P - 9.4 cm fluid collection containing air in right abdomen concerning for abscess Plan: 1. NPO 2. IV abx per ID. monitor WBC. Likely increased due to steroids and intraabdominal abscess. 4. OOB/chair. reconsult PT 5. IS/pulm toilet. 6. DVT/GI ppx 7. PO pain control 8. supplemental O2, nebs 9. continue wound vac 10. monitor BMP 11. bowel regimen 12. IR consulted. Discussed case with Dr. Pink. Recommends CTA A/P with arter ial and venous phase to further evaluate SMV thrombus. Concerned about perfusion to small bowel on right side and may be a result of SMV thrombus. If perfusion is intact, will proceed with drainage of fluid collection. 13. OK to start anticoagulation if recommended by vascular team Discussed results of Ct scan with patient and explained plan Thank you, please call with questions. Subjective Date of service: 07/04/18 Narrative: Pt seen and examined. Seems down about overall condition. States she feels ok but feels that she is not getting better. No f/c overnight. No n/v. Still with right sided abdominal pain. Objective Vital Signs - 12hr 07/04/18 07/04/18 07/04/18 00:41 04:14 07:25 Temperature 98.1 F Pulse Rate 118 H Pulse Rate [ Anterior Bilateral Throughout] Pulse Rate [ Bilateral] Respiratory 20 18 Rate Respiratory Rate [Anterior Bilateral Throughout] Respiratory Rate [Bilateral ] Blood Pressure 136/81 140/81 Blood Pressure [Left] O2 Sat by Pulse 98 Oximetry 07/04/18 07/04/18 07/04/18 07:29 08:02 10:00 Temperature 98.0 F Pulse Rate 119 H Pulse Rate [ Anterior Bilateral Throughout] Pulse Rate [ Bilateral] Respiratory 12 18 Rate Respiratory Rate [Anterior Bilateral Throughout] Respiratory Rate [Bilateral ] Blood Pressure Blood Pressure 140/81 [Left] O2 Sat by Pulse 98 97 Oximetry 07/04/18 10:51 Temperature Pulse Rate Pulse Rate [ 111 H Anterior Bilateral Throughout] Pulse Rate [ 115 H Bilateral] Respiratory Rate Respiratory 18 Rate [Anterior Bilateral Throughout] Respiratory 18 Rate [Bilateral ] Blood Pressure Blood Pressure [Left] O2 Sat by Pulse Oximetry - General physical appearance Narrative Exam: Gen: AAOx3. NAD CV: s1, S2+ Resp: even and unlabored. on NC Abd; soft, distended, RLQ TTP and fullness. No r/r/g. Abdominal wound vac in place with good seal. L sided ostomy pink with liquid brown stool in bag- slight pink tinge. Ext: no c/c/e - Labs 07/04/18 05:37 07/04/18 05:37 Diabetes panel 07/04/18 Range/Units 05:37 Sodium 141 (137-145) mmol/L Potassium 3.4 L (3.6-5.0) mmol/L Chloride 98.9 (98-107) mmol/L Carbon Dioxide 32 H (22-30) mmol/L BUN 30 H (7-17) mg/dL Creatinine 0.3 L (0.7-1.2) mg/dL Glucose 146 H (65-100) mg/dL Calcium 8.6 (8.4-10.2) mg/dL Calcium panel 07/04/18 Range/Units 05:37 Calcium 8.6 (8.4-10.2) mg/dL Pituitary panel 07/04/18 Range/Units 05:37 Sodium 141 (137-145) mmol/L Potassium 3.4 L (3.6-5.0) mmol/L Chloride 98.9 (98-107) mmol/L Carbon Dioxide 32 H (22-30) mmol/L BUN 30 H (7-17) mg/dL Creatinine 0.3 L (0.7-1.2) mg/dL Glucose 146 H (65-100) mg/dL Calcium 8.6 (8.4-10.2) mg/dL Adrenal panel 07/04/18 Range/Units 05:37 Sodium 141 (137-145) mmol/L Potassium 3.4 L (3.6-5.0) mmol/L Chloride 98.9 (98-107) mmol/L Carbon Dioxide 32 H (22-30) mmol/L BUN 30 H (7-17) mg/dL Creatinine 0.3 L (0.7-1.2) mg/dL Glucose 146 H (65-100) mg/dL Calcium 8.6 (8.4-10.2) mg/dL
[2018-07-04] MEDS ORDERED: NACL 0.9% 1000 ML 1,000 ML IV SCH (14:00)
[2018-07-04] MEDS: VANCOMYCIN 1,250 MG in NACL 0.9% 250ML 250 ML IV SCH ×2 (15:04→22:25)
--- NOTE | 2018-07-04 15:40 | Event Note ---
Date: 07/04/18 CTA of the abdomen and pelvis in arterial and venous phase was performed. 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 Additionally, the patient has distal aortic thrombus. Would suspect cardiac origin. The patient's bowel in the right lower quadrant does not appear to have wall enhancement consistent with non-perfusion. Previously noted thin fluid collection along the anterior right long wall is likely colon. Findings were discussed with radiology and surgery.
--- NOTE | 2018-07-04 16:13 | Event Note ---
Date: 07/04/18 Reviewed CTA abdomen/pelvis with Dr. Pink and Dr. Duque. Patient has SMV, SMA thrombosis, clot in the aorta and likely ischemic small bowel in the right abdomen. Area that was felt to be an abscess is likely ischemic bowel. Uncertain as to the source of thrombus. Echo done but not read. I spoke with patient and her friend Senait [phone] scan findings. I conveyed the emergent nature of these findings and the possibility that this could evolve into a dismal prognosis. I explained that we will need to perform emergency surgery to evaluate the abdominal organs and remove the bowel that is necrotic. I explained that we will leave the abdomen with a temporary closure device. We will have to go back to surgery to reassess the bowel in 48-72 hours if she remained stable. I explained to the patient that she may not have enough small intestine left in the abdomen to sustain nutrition. This will lead to permanent IV nutrition needs. I also explained that she may need a permanent ostomy. She understands. When asked what she would want us to do if the situation came to IV nutrition and permanent ostomy, she stated she wanted everything done. She is requesting that her friend/roommate Senait be her medical proxy. Senait was agreeable to this. I have contacted case management to obtain the appropriate forms. Patient has understood all risks, benefits, and alternatives to surgery and all questions answered. Consent obtained.
--- NOTE | 2018-07-04 16:40 | Cat Scan Report ---
PROCEDURE: CT ANGIO ABDOMEN PELVIS TECHNIQUE: CTA of the abdomen and pelvis was performed after the administration of intravenous contr ast. Subsequently, CT the abdomen and pelvis was performed in the venous phase. Coronal and sagittal reconstructions were included. HISTORY: differential bowel perfusion COMPARISONS: CT of the abdomen and pelvis with contrast from 07/03/2018. FINDINGS: Lower thorax: Bibasilar atelectasis is seen. Mild patchy groundglass opacities are seen within the an terior aspects of both lower lobes as well. This is similar in appearance to the prior study. The vis ualized portions of the heart demonstrate no abnormality. Liver: Normal attenuation. No masses. Gallbladder/biliary system: Vicarious excretion of contrast is seen in the gallbladder. The common bi le duct appears nondilated. Spleen: No splenic mass. Pancreas: No masses. No pancreatic duct dilation. Adrenal glands: Unchanged thickening of the left adrenal gland with possible underlying nodule. Uncha nged 1.0 cm right adrenal nodule. Kidneys: Several small nonspecific low-attenuation lesions are again seen within the left kidney whic h are too small to characterize but likely represent small cysts. No hydronephrosis. Unchanged 6 mm n onobstructing calculus in the inferior pole of the right kidney. Vasculature: The abdominal aorta is nondilated. Again, there is heterogeneous, peripheral mural throm bus within the mid to distal abdominal aorta. This causes approximately 80% stenosis. There is a smal l focus of peripheral mural thrombus along the right aspect of the mid/upper abdominal aorta just inf erior to the right renal artery causing less than 50% stenosis. The celiac axis and branches as well as the SMA and renal arteries are widely patent without evidence of stenosis or thrombosis. The proxi mal aspect of the KAYLYN is not well seen and appears small however the distal aspect of the vessel murphy ins patent. A central, near occlusive filling defect is again seen within the superior mesenteric vei n which appears unchanged. Note that the thrombus again extends into several branch mesenteric veins. Lymph nodes: No enlarged lymph nodes. Bowel: Multiple dilated loops of small bowel with air-fluid levels throughout the abdomen are again s een, not significant changed from the prior study. No definite pneumatosis or portal venous gas is se en. The previously noted air/fluid collection in the right upper abdominal quadrant is again seen how ever this may represent a cluster of severely dilated small bowel loops. This area appears similar to the prior study. Left lower quadrant colostomy is again seen. Scattered free intra-abdominal fluid i s seen. The appendix was not seen. Pelvis: Small volume of free fluid is seen in the pelvis. No urinary bladder wall thickening or filli ng defects. Abdominal wall: Recent anterior abdominal incision noted. Bones: No acute finding. IMPRESSION: 1. Unchanged findings concerning for small bowel obstruction. 2. 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 3. Large amount of peripheral mural thrombus within the mid to distal abdominal aorta causing approxi mately 80% stenosis, similar in appearance to the prior study. 4. Previously noted air/fluid collection in the right upper abdominal quadrants is grossly similar in appearance to the prior study and may represent an abscess versus cluster of severely dilated loops of small bowel. 5. Unchanged scattered ascites. 6. Bibasilar atelectasis versus pneumonia, similar in appearance to the prior study. This document is electronically signed by Erendira Menjivar., Jul 04 2018 04:38:30 PM ET
--- NOTE | 2018-07-04 16:42 | Anesthesia Day of Surgery ---
Anesthesia Day of Surgery - Day of Surgery Patient Examined: Yes Patient H&P Reviewed: Yes Patient is NPO: Yes (since midnight ) Beta Blockers: No Cardiac Clearance: No (echo done but not officially read) Pulmonary Clearance: No (hard to wean off to RA was on BiPAP )
[2018-07-04] MEDS ORDERED: DIPRIVAN 10 MG/ML IV ONE (16:47)
[2018-07-04] MEDS ORDERED: SUBLIMAZE ONE (16:47)
--- NOTE | 2018-07-04 16:48 | Anesthesia Consultation ---
Anesthesia Consult and Med Hx - Airway Anesthetic Teeth Evaluation: Poor, Chipped ROM Head & Neck: Adequate Mental/Hyoid Distance: Adequate Mallampati Class: Class II Intubation Access Assessment: Good - Pulmonary Exam CTA: No (expiratory wheezing ) - Cardiac Exam Cardiac Exam: RRR - Pre-Operative Health Status ASA Pre-Surgery Classification: ASA4, Emergency Proposed Anesthetic Plan: General - Pre-Anesthesia Comment Pre-Anesthesia Comments: CTA abdomen/pelvis revealed SMV, SMA thrombosis, clot in the aorta and likely ischemic small bowel in the right abdomen felt to be like an abscess. Uncertain as to the source of thrombus. Echo done but not read. 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 s/p p/t [facility] ED w/ a complaint of a one-week history of generalized abdominal pain concerning for bowel perforation. Poor medical care and no routine follow-ups with primary care physician. States she has had HTN on/off BP meds but currently does not. Previous stent placement for kidney stones was uneventful. Reviewed CTA abdomen/pelvis with Dr. Pink and Dr. Duque. Patient has SMV, SMA thrombosis, clot in the aorta and likely ischemic small bowel in the right abdomen. Area that was felt to be an abscess is likely ischemic bowel. Uncertain as to the source of thrombus. Echo done but not read. I spoke with patient and her friend Sneait [phone] scan findings. I conveyed the emergent nature of these findings and the possibility that this could evolve into a dismal prognosis. I explained that we will need to perform emergency surgery to evaluate the abdominal organs and remove the bowel that is necrotic. I explained that we will leave the abdomen with a temporary closure device. We will have to go back to surgery to reassess the bowel in 48-72 hours if she remained stable. I explained to the patient that she may not have enough small intestine left in the abdomen to sustain nutrition. This will lead to permanent IV nutrition needs. I also explained that she may need a permanent ostomy. She understands. When asked what she would want us to do if the situation came to IV nutrition and permanent ostomy, she stated she wanted everything done. She is requesting that her friend/roommate Senait be her medical proxy. Senait was agreeable to this. I have contacted case management to obtain the appropriate forms. Patient has understood all risks, benefits, and alternatives to surgery and all questions answered. Consent obtained.
[2018-07-04] MEDS ORDERED: VERSED ONE ×2 (16:52→18:18)
[2018-07-04] MEDS ORDERED: ALBURX 25% (ALBUMIN) IV ONE (16:57)
[2018-07-04] MEDS ORDERED: Vasostrict ONE (16:57)
--- NOTE | 2018-07-04 17:37 | Consultation ---
History of Present Illness - Reason for Consult Consult date: 07/04/18 SMA, SMV, Aortic Thrombus - History of Present Illness Patient with a history of perforated diverticulitis s/p exploratory laporatomy and diversion. The patient subsequently developed thrombus in her SMV and on CTA today, thrombus in her SMA was also noted visible secondary to the phase of the CT scan. The patient also has aortic thrombus. Etiology uncertain, but would suspect a cardiac thrombo-embolic event. The patient is not significantly symptomatic yet. Past History Past Medical History: other (malnutrition) Past Surgical History: No surgical history, Other (reviewed) Social history: single, smoking Family history: no significant family history (reviewed) Medications and Allergies Allergies Allergy/AdvReac Type Severity Reaction Status Date / Time No Known Allergies Allergy Unverified 06/24/18 10:41 Home Medications Medication Instructions Recorded Confirmed Last Taken Type No Known Home Medications [No 06/27/18 06/27/18 Unknown History Reported Home Medications] Active Meds: Active Medications Acetaminophen (Tylenol) 650 mg PO Q4H PRN PRN Reason: Pain MILD(1-3)/Fever >100.5/LINK Acetaminophen/Hydrocodone Bitart ([place] 5/325) 1 each PO Q6H PRN PRN Reason: Pain, Moderate (4-6) Last Admin: 07/02/18 18:32 Dose: 1 each Documented by: Albuterol (Proventil) 2.5 mg IH Q4HRT PRN PRN Reason: Shortness Of Breath Albuterol/Ipratropium (Duoneb *Not For Prn Use*) 1 ampul IH TIDRT [facility] Last Admin: 07/04/18 14:00 Dose: Not Given Documented by: Arformoterol Tartrate (Brovana Nebu) 15 mcg IH Q12HRT [facility] Last Admin: 07/04/18 10:48 Dose: Not Given Documented by: Budesonide (Pulmicort) 0.5 mg IH Q12HRT [facility] Last Admin: 07/04/18 10:49 Dose: Not Given Documented by: Docusate Sodium (Colace) 100 mg PO BID [facility] Last Admin: 07/04/18 09:09 Dose: Not Given Documented by: Enoxaparin Sodium (Lovenox) 40 mg SUB-Q QDAY@2200 [facility] Last Admin: 07/03/18 21:14 Dose: 40 mg Documented by: Fentanyl (Sublimaze) 25 mcg IV Q2H PRN PRN Reason: Pain, Moderate (4-6) Metronidazole (Flagyl 500 Mg/100 Ml) 500 mg in 100 mls @ 100 mls/hr IV Q8H [facility]; Protocol Last Admin: 07/04/18 06:11 Dose: 2,000 mls/hr Documented by: Fluconazole (Diflucan) 200 mls @ 100 mls/hr IV Q24HR [facility]; Protocol Last Admin: 07/04/18 09:39 Dose: 100 mls/hr Documented by: Cefepime HCl (Maxipime/Ns 2 Gm/100 Ml) 2 gm in 100 mls @ 200 mls/hr IV Q12HR [facility]; Protocol Last Admin: 07/04/18 09:07 Dose: 200 mls/hr Documented by: Vancomycin HCl 1,250 mg/ (Sodium Chloride) 275 mls @ 166.667 mls/hr IV Q8H [facility] Last Admin: 07/04/18 15:04 Dose: 166.667 mls/hr Documented by: Sodium Chloride (Nacl 0.9% 1000 Ml) 1,000 mls @ 100 mls/hr IV DIRECT [facility] Methylprednisolone Sodium Succinate (Solu-Medrol) 20 mg IV Q8H [facility] Morphine Sulfate (Morphine) 2 mg IV Q4H PRN PRN Reason: Pain , Severe (7-10) Last Admin: 07/04/18 09:39 Dose: 2 mg Documented by: Naloxone HCl (Narcan 0.4 Mg/1 Ml) 0.1 mg IV Q2MIN PRN PRN Reason: Res Rate </= 8 or 02 SAT < 92% Nicotine (Habitrol) 14 mg TD QDAY [facility] Last Admin: 07/04/18 09:06 Dose: 14 mg Documented by: Ondansetron HCl (Zofran) 4 mg IV Q8H PRN PRN Reason: Nausea And Vomiting Last Admin: 06/29/18 04:00 Dose: 4 mg Documented by: Pantoprazole Sodium (Protonix) 40 mg PO DAILY [facility] Last Admin: 07/04/18 09:09 Dose: Not Given Documented by: Phenol (Chloraseptic) 1 spray MM PRN PRN PRN Reason: Sore Throat Sodium Chloride (Sodium Chloride Flush Syringe 10 Ml) 10 ml IV BID [facility] Last Admin: 07/03/18 21:14 Dose: 10 ml Documented by: Sodium Chloride (Sodium Chloride Flush Syringe 10 Ml) 10 ml IV PRN PRN PRN Reason: LINE FLUSH Review of Systems All systems: negative Exam - Constitutional Vitals: Temp Pulse Resp BP Pulse Ox 98.4 F 117 H 18 141/80 96 07/04/18 16:10 07/04/18 16:10 07/04/18 16:10 07/04/18 16:10 07/04/18 16:10 General appearance: Present: no acute distress - EENT Eyes: Present: EOM intact ENT: hearing intact - Neck Neck: Present: supple, normal ROM - Respiratory Respiratory effort: normal - Abdominal General gastrointestinal: Present: distended Female genitourinary: Present: deferred - Rectal Rectal Exam: deferred Results - Labs CBC & Chem 7: 07/04/18 05:37 07/04/18 05:37 Labs: Abnormal lab results 07/04/18 07/04/18 Range/Units 05:37 05:37 WBC 48.5 H* (4.5-11.0) K/mm3 RBC 3.53 L (3.65-5.03) M/mm3 Plt Count 477 H (140-440) K/mm3 Potassium 3.4 L (3.6-5.0) mmol/L Carbon Dioxide 32 H (22-30) mmol/L BUN 30 H (7-17) mg/dL Creatinine 0.3 L (0.7-1.2) mg/dL Glucose 146 H (65-100) mg/dL - Imaging and Cardiology CT scan - abdomen: image reviewed Assessment and Plan From a vascular standpoint, 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 She is not amenable to revascularization of the SMA/SMV and will likely need resection of the affected bowel. Would suspect that there is some minimal collateral flow that has delayed bowel infarction. Following exploratory surgery, would recommend that the patient be placed on heparin drip as soon as feasible.
[2018-07-04] MEDS ORDERED: NACL 0.9% 500 ML 500 ML ONE (17:42)
[2018-07-04] MEDS ORDERED: NACL 0.9% 500 ML 500 ML IV SCH (17:57)
[2018-07-04] MEDS: DIPRIVAN 10 MG/ML 1,000 MG/100 ML BOTTLE IV SCH (18:00)
[2018-07-04] MEDS ORDERED: XYLOCAINE MPF 2% ONE (18:17)
[2018-07-04] MEDS ORDERED: QUELICIN ONE (18:17)
[2018-07-04] MEDS ORDERED: ZEMURON IV ONE (18:17)
[2018-07-04] MEDS ORDERED: ROBINUL ONE (18:17)
[2018-07-04] MEDS ORDERED: NACL 0.9% 500 ML IV PRN (18:23)
[2018-07-04] MEDS ORDERED: ARTIFICIAL TEARS OPHTH OINT OU PRN (18:23)
[2018-07-04] MEDS ORDERED: VASELINE LIP THERAPY TP PRN (18:23)
[2018-07-04] MEDS ORDERED: HEPARIN 10,000 UNITS/10 ML IV ONE (18:30)
--- NOTE | 2018-07-04 18:43 | Post Operative Note ---
Date of procedure: 07/04/18 Pre-op diagnosis: bowel ischemia Post-op diagnosis: same Findings: All but 40 cm of proximal small bowel was gangrenous. Gangrene of proximal cecum. No pulsation in SMA Uo: 100cc NGT output: 500cc IVF: 1400cc Procedure: Exploratory laparotomy, small bowel resection, partial colon resection, temporary abdominal closure with abthera vac Anesthesia: GETA Surgeon: OLGA FELDMAN Cloth Colors Examiner: JIMMY DE LUNA Estimated blood loss: minimal Pathology: list (small bowel, portion of colon) Specimen disposition: to lab Condition: stable Disposition: PACU
--- NOTE | 2018-07-04 18:58 | Progress Note ---
Assessment and Plan Assessment and plan: Patient is 58 yo female with Nicotine Dependence, Severe Malnutrition present to ED for evaluation. Patient presented with abdominal pain for 1 week progressively worsening symptoms over the same time frame. Pt states that her abdominal pain is 10/10, generalized, nonradiating, constant, worsened with movement. Pt denies NVD, ingestion of food/water from new or different sources, BRBPR, skin rash, or recent ill contacts. She was seen and evaluated in ED and found to have PSBO complicated by Bowel Perforation, SIRS, and severe malnutrition. Pt admitted to surgical floor. Surgery consulted in ED. Patient was taken to OR urgently. She had exploratory lap. surgeon found Sigmoid diverticulitis with perforation of distal sigmoid colon, purulent peritonitis. Peritoneal lavage and Posey's procedure was done on 06/24. Post-op was doing well, but on 06/28 developed acute resp failure was put on PBIPAP, transferred to ICU. Pulmonology consulted. she was given lasix, she improved BIPAP, discontinue d, placed on HFNC Oxygen and now on oxygen by NC. today has worsening leukocytosis therefore CT Chest/Abd ordered. 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 Patient was also noted to have right lower quadrant not appear viable. And was taken back for exploratory laparotomy. 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 Acute hypoxic respiratory failure , status post anterior mask which has now been discontinued patient is pleasant. Initially in the ICU but surgical floor. Severe enterocolitis Purulent peritonitis Sigmoid diverticulitis with perforation of distal sigmoid colon hypokalemia, severe hyponatremia Moderate malnutrition Nicotine dependence Sepsis- On Cefepime, Fluconazole,flagyl leukocytosis, worsening, WBC 48.6 today Plan S/P Exploratory laparotomy, small bowel resection, partial colon resection, temporary abdominal closure with abthera vac 07/04/18 With only 40cm small bowel remaining. Start Heparin drip Abdomen left open WITH Temporal closure Status post ex lap, peritoneal lavage, Posey's procedure on 06/24 Electrolytes have been replaced abx per ID. On cefepime, fluconazole, flagyl lasix, oxygen supplement, breathing rx as needed DVT prophylaxis Lovenox Full code status discussed with surgeon and ID Physician Fu Ct chest/abd The high probability of a clinically significant, sudden or life threatening deterioration of the [GI] system(s) required my full and direct attention, intervention and personal management. The aggregate critical care time was [45] minutes. This time is in addition to time spent performing reported procedures but includes the following: [x] Data Review and interpretation [x] Patient assessment and monitoring of vital signs [x] Documentation [x] Medication orders and management History Interval history: Patient' seen and examined this morning reports mild pain about 3/10 intensity of surgical site but no nausea vomiting diarrhea. This improved some. Hospitalist Physical - Physical exam Narrative exam: Gen: Not in acute distress, lying in bed, friend at bedside HEENT: Normocephalic, atraumatic Neck: supple, no JVD Heart: S1 and S2 reg, no murmurs, rubs or gallop Lungs: Bilateral crackles less, no wheeze Abd: soft, mild tender, mild distended, midline wound, ostomy pink, surgical drain, Ext:No edema, no clubbing, no cyanosis Neuro: Awake,alert, oriented x 3, moves all ext, non focal Psych:Normal mood - Constitutional Vitals: Temp Pulse Resp BP Pulse Ox 98.4 F 117 H 18 141/80 96 07/04/18 16:10 07/04/18 16:10 07/04/18 16:10 07/04/18 16:10 07/04/18 16:10 General appearance: Present: no acute distress Results - Labs CBC & Chem 7: 07/05/18 03:14 07/05/18 03:14 Labs: Laboratory Last Values WBC 48.5 K/mm3 (4.5-11.0) H* 07/04/18 05:37 RBC 3.53 M/mm3 (3.65-5.03) L 07/04/18 05:37 Hgb 10.3 gm/dl (10.1-14.3) 07/04/18 05:37 Hct 30.9 % (30.3-42.9) 07/04/18 05:37 MCV 88 fl (79-97) 07/04/18 05:37 MCH 29 pg (28-32) 07/04/18 05:37 MCHC 33 % (30-34) 07/04/18 05:37 RDW 15.0 % (13.2-15.2) 07/04/18 05:37 Plt Count 477 K/mm3 (140-440) H 07/04/18 05:37 Add Manual Diff Complete 06/29/18 00:57 Total Counted 200 06/29/18 00:57 Seg Neutrophils % Office Automation Clerk 06/29/18 00:57 Seg Neuts % (Manual) 93.0 % (40.0-70.0) H 06/29/18 00:57 3.5 % 06/29/18 00:57 1.5 % (13.4-35.0) L 06/29/18 00:57 Reactive Lymphs % (Man) 0.5 % 06/29/18 00:57 1.5 % (0.0-7.3) 06/29/18 00:57 0 % (0.0-4.3) 06/29/18 00:57 0 % (0.0-1.8) 06/29/18 00:57 0 % 06/29/18 00:57 0 % 06/29/18 00:57 0 % 06/29/18 00:57 0 % 06/29/18 00:57 Nucleated RBC % Not Reportable 06/29/18 00:57 Seg Neutrophils # Man 26.9 K/mm3 (1.8-7.7) H 06/29/18 00:57 Band Neutrophils # 1.0 K/mm3 06/29/18 00:57 0.4 K/mm3 (1.2-5.4) L 06/29/18 00:57 Abs React Lymphs (Man) 0.1 K/mm3 06/29/18 00:57 0.4 K/mm3 (0.0-0.8) 06/29/18 00:57 0.0 K/mm3 (0.0-0.4) 06/29/18 00:57 0.0 K/mm3 (0.0-0.1) 06/29/18 00:57 0.0 K/mm3 06/29/18 00:57 0.0 K/mm3 06/29/18 00:57 0.0 K/mm3 06/29/18 00:57 Blast Cells # 0.0 K/mm3 06/29/18 00:57 WBC Morphology Not Reportable 06/29/18 00:57 WBC Morphology TNR 06/29/18 00:57 Hypersegmented Neuts Few 06/29/18 00:57 Hyposegmented Neuts Not Reportable 06/29/18 00:57 Hypogranular Neuts Not Reportable 06/29/18 00:57 Not Reportable 06/29/18 00:57 Not Reportable 06/29/18 00:57 Not Reportable 06/29/18 00:57 Not Reportable 06/29/18 00:57 Not Reportable 06/29/18 00:57 Not Reportable 06/29/18 00:57 Appears increased 06/29/18 00:57 Not Reportable 06/29/18 00:57 Plt Clumps, EDTA Not Reportable 06/29/18 00:57 Not Reportable 06/29/18 00:57 Not Reportable 06/29/18 00:57 Not Reportable 06/29/18 00:57 Plt Morphology Comment Not Reportable 06/29/18 00:57 RBC Morphology Not Reportable 06/29/18 00:57 Dimorphic RBCs Not Reportable 06/29/18 00:57 Not Reportable 06/29/18 00:57 Not Reportable 06/29/18 00:57 Not Reportable 06/29/18 00:57 Not Reportable 06/29/18 00:57 Not Reportable 06/29/18 00:57 Not Reportable 06/29/18 00:57 Not Reportable 06/29/18 00:57 Not Reportable 06/29/18 00:57 Not Reportable 06/29/18 00:57 Not Reportable 06/29/18 00:57 Not Reportable 06/29/18 00:57 Not Reportable 06/29/18 00:57 Not Reportable 06/29/18 00:57 Not Reportable 06/29/18 00:57 Not Reportable 06/29/18 00:57 Not Reportable 06/29/18 00:57 Not Reportable 06/29/18 00:57 Not Reportable 06/29/18 00:57 Not Reportable 06/29/18 00:57 Acanthocytes (Spur) Not Reportable 06/29/18 00:57 Rouleaux Not Reportable 06/29/18 00:57 Not Reportable 06/29/18 00:57 Not Reportable 06/29/18 00:57 Not Reportable 06/29/18 00:57 Not Reportable 06/29/18 00:57 Hem Pathologist Commnt No 06/29/18 00:57 PT 15.9 Sec. (12.2-14.9) H 06/24/18 11:18 INR 1.19 (0.87-1.13) H 06/24/18 11:18 APTT 31.8 Sec. (24.2-36.6) 06/24/18 11:18 POC ABG pH 7.470 (7.35-7.45) H 06/28/18 13:19 POC ABG pCO2 53.0 (35-45) H 06/28/18 13:19 POC ABG pO2 120 (80-105) H 06/28/18 13:19 POC ABG HCO3 38.6 (22-26 mml/L) 06/28/18 13:19 POC ABG Total CO2 40 (23-27mmol/L) 06/28/18 13:19 POC ABG O2 Sat 99 06/28/18 13:19 POC ABG Base Excess 15 ((-2) - (+3)mmol/L) 06/28/18 13:19 100 % 06/28/18 13:19 Sodium 141 mmol/L (137-145) 07/04/18 05:37 Potassium 3.4 mmol/L (3.6-5.0) L 07/04/18 05:37 Chloride 98.9 mmol/L (98-107) 07/04/18 05:37 Carbon Dioxide 32 mmol/L (22-30) H 07/04/18 05:37 14 mmol/L 07/04/18 05:37 BUN 30 mg/dL (7-17) H 07/04/18 05:37 0.3 mg/dL (0.7-1.2) L 07/04/18 05:37 Estimated GFR > 60 ml/min 07/04/18 05:37 100 % 07/04/18 05:37 Glucose 146 mg/dL (65-100) H 07/04/18 05:37 POC Glucose 190 (70-105) H 07/01/18 12:21 Calcium 8.6 mg/dL (8.4-10.2) 07/04/18 05:37 Phosphorus 2.30 mg/dL (2.5-4.5) L D 06/30/18 16:17 Magnesium 2.00 mg/dL (1.7-2.3) 06/30/18 16:17 0.90 mg/dL (0.1-1.2) 06/25/18 06:55 1.5 mg/dL (0-0.2) H 06/24/18 11:19 0.4 mg/dL 06/24/18 11:19 AST 16 units/L (5-40) 06/25/18 06:55 ALT 21 units/L (7-56) 06/25/18 06:55 152 units/L (35-129) H 06/25/18 06:55 13.20 mg/dL (0.00-1.30) H 07/03/18 11:07 NT-Pro-B Natriuret Pep 1572 pg/mL (0-900) H 06/28/18 09:56 5.3 g/dL (6.3-8.2) L 06/25/18 06:55 2.1 g/dL (3.9-5) L 06/25/18 06:55 0.7 % 06/25/18 06:55 8 units/L (13-60) L 06/24/18 11:19 Na (Yellow) 07/03/18 Unknown Hazy (Clear) 07/03/18 Unknown 6.0 (5.0-7.0) 07/03/18 Unknown Ur Specific [place] 1.023 (1.003-1.030) 07/03/18 Unknown <15 mg/dl mg/dL (Negative) 07/03/18 Unknown Neg mg/dL (Negative) 07/03/18 Unknown Neg mg/dL (Negative) 07/03/18 Unknown Sm (Negative) 07/03/18 Unknown Neg (Negative) 07/03/18 Unknown Neg (Negative) 07/03/18 Unknown < 2.0 mg/dL (<2.0) 07/03/18 Unknown Ur Leukocyte Esterase Neg (Negative) 07/03/18 Unknown 1.0 /HPF (0.0-6.0) 07/03/18 Unknown 3.0 /HPF (0.0-6.0) 07/03/18 Unknown U Epithel Cells (Auto) 7.0 /HPF (0-13.0) 07/03/18 Unknown 1+ /HPF (Negative) 06/24/18 13:00 Few /HPF 07/03/18 Unknown Vancomycin Trough 5.4 ug/mL (5.0-20.0) 07/04/18 09:03 Blood Type O POSITIVE 07/04/18 17:54 Antibody Screen TNR 07/04/18 17:54 Crossmatch See Detail 07/04/18 17:54 Active Medications - Current Medications Current Medications: Generic Name Dose Route Start Last Admin Trade Name Freq PRN Reason Stop Dose Admin Acetaminophen 650 mg 06/24/18 14:00 Tylenol PO Q4H PRN Pain MILD(1-3)/Fever >100.5/LINK Acetaminophen/Hydrocodone Bitart 1 each 06/30/18 08:45 07/02/18 18:32 [place] 5/325 PO 1 each Q6H PRN Administration Pain, Moderate (4-6) Albuterol 2.5 mg 07/02/18 07:44 Proventil IH Q4HRT PRN Shortness Of Breath Albuterol/Ipratropium 1 ampul 07/02/18 14:00 07/04/18 14:00 Duoneb *Not For Prn Use* IH Not Given TIDRT [facility] Arformoterol Tartrate 15 mcg 07/02/18 20:00 07/04/18 10:48 Brovana Nebu IH Not Given Q12HRT [facility] Budesonide 0.5 mg 07/02/18 20:00 07/04/18 10:49 Pulmicort IH Not Given Q12HRT [facility] Docusate Sodium 100 mg 07/01/18 22:00 07/04/18 09:09 Colace PO Not Given BID [facility] Fentanyl 25 mcg 06/30/18 14:19 Sublimaze IV Q2H PRN Pain, Moderate (4-6) Hydrophilic Ointment 1 applic 07/04/18 18:23 Vaseline Lip Therapy TP Q2HR PRN Dry Lips Metronidazole 500 mg in 100 mls @ 100 mls/hr 06/24/18 22:00 07/04/18 06:11 Flagyl 500 Mg/100 Ml IV 2,000 mls/hr Q8H MAURICIO Administration Protocol Fluconazole 200 mls @ 100 mls/hr 06/26/18 14:00 07/04/18 09:39 Diflucan IV 100 mls/hr Q24HR MAURICIO Administration Protocol Cefepime HCl 2 gm in 100 mls @ 200 mls/hr 06/27/18 14:00 07/04/18 09:07 Maxipime/Ns 2 Gm/100 Ml IV 200 mls/hr Q12HR MAURICIO Administration Protocol Vancomycin HCl 1,250 mg/ 275 mls @ 166.667 mls/hr 07/04/18 12:00 07/04/18 15:04 Sodium Chloride IV 166.667 mls/hr Q8H MAURICIO Administration Sodium Chloride 1,000 mls @ 100 mls/hr 07/04/18 14:00 Nacl 0.9% 1000 Ml IV DIRECT MAURICIO Sodium Chloride 500 mls @ 0 mls/hr 07/04/18 17:57 Nacl 0.9% 500 Ml IV 07/05/18 06:56 ONCE MAURICIO As Directed Fentanyl Citrate 2,000 mcg in 100 mls @ 2.605 mls/hr 07/04/18 19:00 Fentanyl Drip Premix IV TITR [facility] Protocol 1 MCG/KG/HR Propofol 1,000 mg in 100 mls @ 1.563 mls/hr 07/04/18 19:00 Diprivan 10 Mg/Ml IV TITR [facility] Protocol 5 MCG/KG/MIN Heparin Sodium/Sodium Chloride 25,000 unit in 500 mls @ 15 mls/hr 07/04/18 19:00 Heparin/ 0.45% Nacl-25,000 Unit/500 Ml IV TITR [facility] Protocol 750 UNITS/HR Methylprednisolone Sodium Succinate 20 mg 07/04/18 14:00 Solu-Medrol IV Q8H MAURICIO Morphine Sulfate 2 mg 06/30/18 16:36 07/04/18 09:39 Morphine IV 2 mg Q4H PRN Administration Pain , Severe (7-10) Multi-Ingred Cream/Lotion/Oil/Oint 1 applic 07/04/18 18:23 Artificial Tears Ophth Oint OU Q4HR PRN Dry Eye(s) Naloxone HCl 0.1 mg 06/24/18 18:55 Narcan 0.4 Mg/1 Ml IV Q2MIN PRN Res Rate </= 8 or 02 SAT < 92% Nicotine 14 mg 06/25/18 10:00 07/04/18 09:06 Habitrol TD 14 mg QDAY MAURICIO Administration Ondansetron HCl 4 mg 06/24/18 14:00 06/29/18 04:00 Zofran IV 4 mg Q8H PRN Administration Nausea And Vomiting Pantoprazole Sodium 40 mg 06/30/18 10:00 07/04/18 09:09 Protonix PO Not Given DAILY MAURICIO Pantoprazole Sodium 40 mg 07/04/18 22:00 Protonix IV BID MAURICIO Phenol 1 spray 06/25/18 13:51 Chloraseptic MM PRN PRN Sore Throat Sodium Chloride 10 ml 06/24/18 22:00 07/03/18 21:14 Sodium Chloride Flush Syringe 10 Ml IV 10 ml BID MAURICIO Administration Sodium Chloride 10 ml 06/24/18 14:00 Sodium Chloride Flush Syringe 10 Ml IV PRN PRN LINE FLUSH Sodium Chloride 5 ml 07/04/18 18:23 Nacl 0.9% 500 Ml IV DIRECT PRN ARTERIAL PICKER/PULLER Nutrition/Malnutrition Assess - Dietary Evaluation Nutrition/Malnutrition Findings: Nutrition Notes Start: 06/30/18 16:45 Freq: Status: Active Protocol: Document 07/04/18 14:21 JANICE (Rec: 07/04/18 14:27 JANICE [email or web address]) Nutrition Notes Initial or Follow up Reassessment Other Pertinent Diagnosis Severe enterocolitis, peritonitis, sigmoid diverticulitis s/p exp lap Current Diet NPO Labs/Tests K 3.4 BUN 30 Pertinent Medications Solumedrol Height 5 ft 3 in Weight 52.1 kg [place] Body Weight (kg) 52.27 BMI 20.3 Subjective/Other Information Pt not in room at time of visit (12:47). She is scheduled for a procedure today. She has consumed 50% of meals since last assessment . Percent of energy/protein needs met: 74% energy 62% pro Burn Absent Trauma Absent #1 Nutrition Diagnosis Increased nutrient needs ( specify in comment below) Diagnosis Progress(for reassessment Continues documentation) Is patient on ventilator? No Is Patient Ambulatory and/or Out of Bed Yes REE-([place]-St. Jeor-ambulatory/OOB) [ 1391.169 [id number]] Kcal/Kg value to use for calculation 33 Approximate Energy Requirements Using 1719 kcal/Kg Calculation Used for Recommendations Kcal/kg Additional Notes Pro needs 1.25-1.5g/k-78g /day Fluid needs 1ml/kcal Nutrition Intervention Change Diet Order: Resume GI soft diet when medically feasible Add Supplement/Snack (indicate name/kcal Continue Ensure Enlive BID and /protein ) Storm BID when diet advanced Provides kCal: 890 Provides Protein (gm) 45 Goal #1 Resume PO diet plus ONS to meet nutrient needs Follow-Up By: 07/05/18 Additional Comments F/U: Add ONS to diet order
[2018-07-04] MEDS ORDERED: DIPRIVAN 10 MG/ML 1,000 MG/100 ML BOTTLE IV ONE (19:04)
[2018-07-04 19:18] LABS: Hematocrit 28.7 % (30.3-42.9); Hemoglobin 9.5 gm/dl (10.1-14.3)
[2018-07-04 19:29] LABS: INR 1.46 (0.87-1.13)
[2018-07-04 19:30] LABS: Partial Thromboplastin Time 26.7 Sec. (24.2-36.6)
[2018-07-04] MEDS ORDERED: LACTATED RINGERS 1,000 ML ONE (19:42)
--- NOTE | 2018-07-04 20:24 | XRay Report ---
PROCEDURE: XR CHEST 1V AP TECHNIQUE: Chest radiograph single view. HISTORY: ETT placement COMPARISONS: 06/30/2018 . FINDINGS: Heart: Normal. Mediastinum/Vessels: Normal. Lungs/Pleural space: Lungs are expanded. There are residual infiltrates in the right lung. Left lung is clear. There are no effusions or pneumothoraces.. Bony thorax: No acute osseous abnormality. Life support devices: Endotracheal tube is in the mid trachea proximal to centimeters above the didier a. NG tube is in the stomach.. IMPRESSION: The heart size is normal.. Lungs are expanded. There are residual infiltrates in the right lung. Left lung is clear. There are n o effusions or pneumothoraces.. Endotracheal tube is in the mid trachea proximal to centimeters above the kristopher. NG tube is in the s tomach.. This document is electronically signed by Trae Mendoza MD., Jul 04 2018 08:22:16 PM ET
[2018-07-04] MEDS: fentaNYL DRIP Premix 2,000 MCG/100 ML BAG IV SCH (20:32)
[2018-07-04] MEDS: HEPARIN/ 0.45% NACL-25,000 UNIT/500 ML 25,000 UNIT/500 ML BAG IV SCH (20:33)
[2018-07-04] MEDS: PROTONIX IV SCH (22:16)
--- NOTE | 2018-07-05 02:57 | XRay Report ---
PROCEDURE: XR CHEST 1V AP TECHNIQUE: Chest radiograph single view. HISTORY: follow up respiratory failure COMPARISONS: 06/26/2018 . FINDINGS: Heart: Normal. Mediastinum/Vessels: Normal. Lungs/Pleural space: There is residual airspace disease in the right upper lobe and right lung base. Pleural fluid is not seen.. Bony thorax: No acute osseous abnormality. Life support devices: The ET tube and NG tube appear in good position.. IMPRESSION: Stable patchy airspace disease in the right lung as described. Satisfactory position of the ET tube and NG tube.. This document is electronically signed by Charles Dodd MD., Jul 05 2018 02:54:52 AM ET
[2018-07-05 03:27] LABS: Hematocrit 27.5 % (30.3-42.9); Hemoglobin 9.1 gm/dl (10.1-14.3); Mean Corpuscular HGB Conc 33 % (30-34); Mean Corpuscular Volume 88 fl (79-97); Platelet Count 529 K/mm3 (140-440); Red Blood Count 3.12 M/mm3 (3.65-5.03); Red Cell Distribution Width 15.2 % (13.2-15.2)
[2018-07-05] MEDS: VANCOMYCIN 1,250 MG in NACL 0.9% 250ML 250 ML IV SCH ×2 (03:47→12:00)
[2018-07-05 03:50] LABS: Alanine Aminotransferase 20 units/L (7-56); Albumin 1.6 g/dL (3.9-5); BUN/Creatinine Ratio 145; Blood Urea Nitrogen 29 mg/dL (7-17); Calcium 8.1 mg/dL (8.4-10.2); Hemolysis Index 26
[2018-07-05] MEDS: SOLU-Medrol IV SCH (06:27)
[2018-07-05] MEDS: FLAGYL 500 MG/100 ML 500 MG/100 ML BAG IV SCH ×3 (06:27→21:38)
[2018-07-05] MEDS: DUONEB *Not for PRN Use IH SCH ×3 (07:24→19:28)
[2018-07-05] MEDS: PULMICORT IH SCH ×2 (07:24→19:28)
[2018-07-05] MEDS: BROVANA NEBU IH SCH ×2 (07:24→19:28)
--- NOTE | 2018-07-05 08:49 | Progress Note ---
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 The patient has undergone resection of an extensive amount of small bowel. Patient is currently on a heparin drip. We will follow however, no additional vascular or interventional radiology interventions will be planned at this time. Subjective Date of service: 07/05/18 Principal diagnosis: peritonitis/penumonia Interval history: Patient intubated but alert following extensive bowel resection. Objective - Constitutional Vitals: Vital Signs - 12hr 07/04/18 07/04/18 07/04/18 20:50 21:00 21:06 Temperature 97.3 F L Pulse Rate 117 H Pulse Rate [ 117 H Bilateral] Respiratory 19 Rate Respiratory 19 Rate [Bilateral ] Blood Pressure 120/77 O2 Sat by Pulse 100 Oximetry 07/04/18 07/04/18 07/04/18 21:15 21:21 21:30 Temperature Pulse Rate 121 H 119 H Pulse Rate [ 118 H Bilateral] Respiratory 20 17 Rate Respiratory 19 Rate [Bilateral ] Blood Pressure 113/73 119/77 O2 Sat by Pulse 100 100 Oximetry 07/04/18 07/04/18 07/04/18 21:45 22:00 22:15 Temperature Pulse Rate 120 H 123 H 128 H Pulse Rate [ Bilateral] Respiratory 14 19 19 Rate Respiratory Rate [Bilateral ] Blood Pressure 121/77 110/74 118/81 O2 Sat by Pulse 99 99 Oximetry 07/04/18 07/04/18 07/04/18 22:30 22:45 23:00 Temperature Pulse Rate 126 H 125 H 127 H Pulse Rate [ Bilateral] Respiratory 19 18 19 Rate Respiratory Rate [Bilateral ] Blood Pressure 101/69 105/72 115/73 O2 Sat by Pulse 99 99 99 Oximetry 07/04/18 07/04/18 07/04/18 23:15 23:30 23:45 Temperature Pulse Rate 132 H 122 H 119 H Pulse Rate [ Bilateral] Respiratory 20 5 L 21 Rate Respiratory Rate [Bilateral ] Blood Pressure 119/72 97/58 107/65 O2 Sat by Pulse 98 98 99 Oximetry 07/04/18 07/05/18 07/05/18 23:55 00:00 00:15 Temperature 99.3 F Pulse Rate 119 H 122 H 123 H Pulse Rate [ Bilateral] Respiratory 19 19 Rate Respiratory Rate [Bilateral ] Blood Pressure 99/57 114/71 115/71 O2 Sat by Pulse 100 98 98 Oximetry 07/05/18 07/05/18 07/05/18 00:30 00:45 01:00 Temperature Pulse Rate 129 H 128 H 123 H Pulse Rate [ Bilateral] Respiratory 18 20 18 Rate Respiratory Rate [Bilateral ] Blood Pressure 112/78 116/73 123/75 O2 Sat by Pulse 98 98 98 Oximetry 07/05/18 07/05/18 07/05/18 01:15 01:30 01:45 Temperature Pulse Rate 123 H 124 H 119 H Pulse Rate [ Bilateral] Respiratory 18 20 20 Rate Respiratory Rate [Bilateral ] Blood Pressure 121/68 109/74 118/73 O2 Sat by Pulse 100 Oximetry 07/05/18 07/05/18 07/05/18 02:00 02:15 02:30 Temperature Pulse Rate 120 H 117 H 121 H Pulse Rate [ Bilateral] Respiratory 22 17 16 Rate Respiratory Rate [Bilateral ] Blood Pressure 110/76 118/74 117/71 O2 Sat by Pulse 99 97 Oximetry 07/05/18 07/05/18 07/05/18 02:45 03:00 03:15 Temperature Pulse Rate 119 H 122 H 121 H Pulse Rate [ Bilateral] Respiratory 19 24 19 Rate Respiratory Rate [Bilateral ] Blood Pressure 115/72 124/76 119/75 O2 Sat by Pulse 98 98 99 Oximetry 07/05/18 07/05/18 07/05/18 03:30 03:45 04:00 Temperature 98.9 F Pulse Rate 122 H 120 H 117 H Pulse Rate [ Bilateral] Respiratory 18 19 18 Rate Respiratory Rate [Bilateral ] Blood Pressure 120/78 124/73 110/71 O2 Sat by Pulse 99 98 98 Oximetry 07/05/18 07/05/18 07/05/18 04:15 04:30 04:41 Temperature Pulse Rate 115 H 117 H 117 H Pulse Rate [ Bilateral] Respiratory 18 18 Rate Respiratory Rate [Bilateral ] Blood Pressure 121/73 113/71 103/55 O2 Sat by Pulse 98 99 Oximetry 07/05/18 07/05/18 07/05/18 04:45 05:00 05:15 Temperature Pulse Rate 116 H 112 H 119 H Pulse Rate [ Bilateral] Respiratory 18 18 18 Rate Respiratory Rate [Bilateral ] Blood Pressure 107/67 107/67 116/74 O2 Sat by Pulse 98 Oximetry 07/05/18 07/05/18 07/05/18 05:30 05:45 06:00 Temperature Pulse Rate 111 H 113 H 113 H Pulse Rate [ Bilateral] Respiratory 18 18 18 Rate Respiratory Rate [Bilateral ] Blood Pressure 116/69 116/74 115/71 O2 Sat by Pulse 97 Oximetry 07/05/18 07/05/18 07/05/18 06:15 06:30 06:45 Temperature Pulse Rate 117 H 115 H 118 H Pulse Rate [ Bilateral] Respiratory 18 16 18 Rate Respiratory Rate [Bilateral ] Blood Pressure 111/70 109/78 110/74 O2 Sat by Pulse 97 98 Oximetry 07/05/18 07/05/18 07/05/18 07:00 07:13 07:15 Temperature Pulse Rate 121 H 116 H 121 H Pulse Rate [ Bilateral] Respiratory 18 15 Rate Respiratory Rate [Bilateral ] Blood Pressure 110/74 115/58 110/71 O2 Sat by Pulse 96 100 97 Oximetry 07/05/18 07/05/18 07/05/18 07:24 07:29 07:30 Temperature 98.4 F Pulse Rate 117 H Pulse Rate [ 117 H Bilateral] Respiratory 21 Rate Respiratory 18 Rate [Bilateral ] Blood Pressure 110/72 O2 Sat by Pulse Oximetry 07/05/18 07/05/18 07/05/18 07:45 07:52 08:00 Temperature Pulse Rate 116 H 119 H Pulse Rate [ 118 H Bilateral] Respiratory 22 18 Rate Respiratory 18 Rate [Bilateral ] Blood Pressure 116/73 122/73 O2 Sat by Pulse 97 Oximetry General appearance: Present: mild distress - EENT Eyes: EOM intact ENT: hearing intact - Neck Neck: supple - Respiratory Respiratory effort: other (intubated) - Breasts Breasts: deferred - Cardiovascular Rhythm: other (tachycardic) - Gastrointestinal General gastrointestinal: Present: other (post surgical) Rectal Exam: deferred - Genitourinary Female genitourinary: deferred - Labs CBC & Chem 7: 07/05/18 03:14 07/05/18 03:14 Labs: Abnormal lab results 07/04/18 07/04/18 07/04/18 Range/Units 17:54 19:00 19:00 WBC (4.5-11.0) K/mm3 RBC (3.65-5.03) M/mm3 Hgb 9.5 L (10.1-14.3) gm/dl Hct 28.7 L (30.3-42.9) % Plt Count 512 H (140-440) K/mm3 PT 18.7 H (12.2-14.9) Sec. INR 1.46 H (0.87-1.13) Heparin Anti-Xa Level (0.3-0.7) U.I./ml POC ABG pH (7.35-7.45) POC ABG pCO2 (35-45) POC ABG pO2 (80-105) BUN (7-17) mg/dL Creatinine (0.7-1.2) mg/dL Glucose (65-100) mg/dL Calcium (8.4-10.2) mg/dL Total Protein (6.3-8.2) g/dL Albumin (3.9-5) g/dL Crossmatch See Detail 07/04/18 07/05/18 07/05/18 Range/Units 21:50 03:14 03:14 WBC 36.6 H (4.5-11.0) K/mm3 RBC 3.12 L (3.65-5.03) M/mm3 Hgb 9.1 L (10.1-14.3) gm/dl Hct 27.5 L (30.3-42.9) % Plt Count 529 H (140-440) K/mm3 PT (12.2-14.9) Sec. INR (0.87-1.13) Heparin Anti-Xa Level (0.3-0.7) U.I./ml POC ABG pH 7.469 H (7.35-7.45) POC ABG pCO2 45.8 H (35-45) POC ABG pO2 109 H (80-105) BUN 29 H (7-17) mg/dL Creatinine 0.2 L (0.7-1.2) mg/dL Glucose 149 H (65-100) mg/dL Calcium 8.1 L (8.4-10.2) mg/dL Total Protein 4.5 L (6.3-8.2) g/dL Albumin 1.6 L (3.9-5) g/dL Crossmatch 07/05/18 07/05/18 Range/Units 03:14 04:45 WBC (4.5-11.0) K/mm3 RBC (3.65-5.03) M/mm3 Hgb (10.1-14.3) gm/dl Hct (30.3-42.9) % Plt Count (140-440) K/mm3 PT (12.2-14.9) Sec. INR (0.87-1.13) Heparin Anti-Xa Level 0.10 L (0.3-0.7) U.I./ml POC ABG pH (7.35-7.45) POC ABG pCO2 50.6 H (35-45) POC ABG pO2 181 H (80-105) BUN (7-17) mg/dL Creatinine (0.7-1.2) mg/dL Glucose (65-100) mg/dL Calcium (8.4-10.2) mg/dL Total Protein (6.3-8.2) g/dL Albumin (3.9-5) g/dL Crossmatch Medications & Allergies - Medications Allergies/Adverse Reactions: Allergies No Known Allergies Allergy (Unverified 06/24/18 10:41) Home Medications: Home Medications Medication Instructions Recorded Confirmed Last Taken Type No Known Home Medications [No 06/27/18 06/27/18 Unknown History Reported Home Medications] Active Medications: Generic Name Dose Route Start Last Admin Trade Name Freq PRN Reason Stop Dose Admin Albuterol 2.5 mg 07/02/18 07:44 Proventil IH Q4HRT PRN Shortness Of Breath Albuterol/Ipratropium 1 ampul 07/02/18 14:00 07/05/18 07:24 Duoneb *Not For Prn Use* IH 1 ampul TIDRT MAURICIO Administration Arformoterol Tartrate 15 mcg 07/02/18 20:00 07/05/18 07:24 Brovana Nebu IH 15 mcg Q12HRT MAURICIO Administration Budesonide 0.5 mg 07/02/18 20:00 07/05/18 07:24 Pulmicort IH 0.5 mg Q12HRT MAURICIO Administration Docusate Sodium 100 mg 07/01/18 22:00 07/04/18 22:09 Colace PO Not Given BID MAURICIO Fentanyl 25 mcg 06/30/18 14:19 Sublimaze IV Q2H PRN Pain, Moderate (4-6) Hydrophilic Ointment 1 applic 07/04/18 18:23 Vaseline Lip Therapy TP Q2HR PRN Dry Lips Metronidazole 500 mg in 100 mls @ 100 mls/hr 06/24/18 22:00 07/05/18 07:00 Flagyl 500 Mg/100 Ml IV Infused Q8H MAURICIO Infusion Protocol Fluconazole 200 mls @ 100 mls/hr 06/26/18 14:00 07/04/18 11:00 Diflucan IV Infused Q24HR MAURICIO Infusion Protocol Cefepime HCl 2 gm in 100 mls @ 200 mls/hr 06/27/18 14:00 07/04/18 23:00 Maxipime/Ns 2 Gm/100 Ml IV Infused Q12HR MAURICIO Infusion Protocol Vancomycin HCl 1,250 mg/ 275 mls @ 166.667 mls/hr 07/04/18 12:00 07/05/18 05:26 Sodium Chloride IV Infused Q8H MAURICIO Infusion Sodium Chloride 1,000 mls @ 100 mls/hr 07/04/18 14:00 07/04/18 20:33 Nacl 0.9% 1000 Ml IV 100 mls/hr DIRECT MAURICIO Administration Fentanyl Citrate 2,000 mcg in 100 mls @ 2.605 mls/hr 07/04/18 19:00 07/04/18 20:32 Fentanyl Drip Premix IV 1 mcg/kg/hr TITR MAURICIO 2.605 mls/hr Administration Protocol 1 MCG/KG/HR Propofol 1,000 mg in 100 mls @ 1.563 mls/hr 07/04/18 19:00 07/04/18 20:30 Diprivan 10 Mg/Ml IV 10 mcg/kg/min TITR MAURICIO 3.126 mls/hr Titration Protocol 5 MCG/KG/MIN Heparin Sodium/Sodium Chloride 25,000 unit in 500 mls @ 15 mls/hr 07/04/18 19:00 07/05/18 04:28 Heparin/ 0.45% Nacl-25,000 Unit/500 Ml IV 850 units/hr TITR MAURICIO 17 mls/hr Titration Protocol 750 UNITS/HR Methylprednisolone Sodium Succinate 20 mg 07/04/18 14:00 07/05/18 06:27 Solu-Medrol IV 20 mg Q8H MAURICIO Administration Multi-Ingred Cream/Lotion/Oil/Oint 1 applic 07/04/18 18:23 Artificial Tears Ophth Oint OU Q4HR PRN Dry Eye(s) Naloxone HCl 0.1 mg 06/24/18 18:55 Narcan 0.4 Mg/1 Ml IV Q2MIN PRN Res Rate </= 8 or 02 SAT < 92% Nicotine 14 mg 06/25/18 10:00 07/04/18 09:06 Habitrol TD 14 mg QDAY MAURICIO Administration Ondansetron HCl 4 mg 06/24/18 14:00 06/29/18 04:00 Zofran IV 4 mg Q8H PRN Administration Nausea And Vomiting Pantoprazole Sodium 40 mg 07/04/18 22:00 07/04/18 22:16 Protonix IV 40 mg BID MAURICIO Administration Sodium Chloride 10 ml 06/24/18 22:00 07/04/18 22:15 Sodium Chloride Flush Syringe 10 Ml IV 10 ml BID MAURICIO Administration Sodium Chloride 10 ml 06/24/18 14:00 Sodium Chloride Flush Syringe 10 Ml IV PRN PRN LINE FLUSH Sodium Chloride 5 ml 07/04/18 18:23 Nacl 0.9% 500 Ml IV DIRECT PRN [employer]
[2018-07-05] MEDS: MAXIPIME/NS 2 GM/100 ML 2 GM/100 ML BAG IV SCH ×2 (09:06→21:38)
--- NOTE | 2018-07-05 09:06 | Progress Note ---
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 No pulsation in SMA - exploratory laparotomy, small bowel resection, partial colon resection, temporary abdominal closure with abthera vac s/p acute bowel perforation, diverticulitis. Leukemoid reaction after the above post op acute respiratory failure secondary to volume overload. On vent COPD Recommendations Antibiotics per ID. Check cultures Lactate normal, we'll discontinue for the moment Mechanical ventilation support, adjust FiO2 with goal of maintaining oximetry at or above 92% Titrate PEEP up to maintain oximetry of the above oximetry level Set tidal Volume set initially at 6-8 cm PBW for ED protection Keep PIP < 30 Sedation as needed for patient comfort, adjust to RASS -1 to - 3 Maintain extubation precautions Daily morning sedation vacation and initiate SBT if deemed appropriate DVT prophylaxis PPI prophylaxis Discussed previously plans with surgery. Current surgical plan is hopefully to do secondary exploration in 1-2 days, depending on patient status. Prognosis overall still grave, although WBC appears to improved If Ok with surgery, consider PICC line or other central for nutrition support assisted Critical care time was 31 minutes of [id number] evaluation and coordination of care Subjective Principal diagnosis: small bowel ischemiaperitonitis/penumonia Interval history: Intubated post op Objective Vital Signs - 12hr 07/04/18 07/04/18 07/04/18 21:00 21:06 21:15 Temperature Pulse Rate 117 H 121 H Pulse Rate [ 117 H Bilateral] Respiratory 19 20 Rate Respiratory 19 Rate [Bilateral ] Blood Pressure 120/77 113/73 O2 Sat by Pulse 100 100 Oximetry 07/04/18 07/04/18 07/04/18 21:21 21:30 21:45 Temperature Pulse Rate 119 H 120 H Pulse Rate [ 118 H Bilateral] Respiratory 17 14 Rate Respiratory 19 Rate [Bilateral ] Blood Pressure 119/77 121/77 O2 Sat by Pulse 100 Oximetry 07/04/18 07/04/18 07/04/18 22:00 22:15 22:30 Temperature Pulse Rate 123 H 128 H 126 H Pulse Rate [ Bilateral] Respiratory 19 19 19 Rate Respiratory Rate [Bilateral ] Blood Pressure 110/74 118/81 101/69 O2 Sat by Pulse 99 99 99 Oximetry 07/04/18 07/04/18 07/04/18 22:45 23:00 23:15 Temperature Pulse Rate 125 H 127 H 132 H Pulse Rate [ Bilateral] Respiratory 18 19 20 Rate Respiratory Rate [Bilateral ] Blood Pressure 105/72 115/73 119/72 O2 Sat by Pulse 99 99 98 Oximetry 07/04/18 07/04/18 07/04/18 23:30 23:45 23:55 Temperature Pulse Rate 122 H 119 H 119 H Pulse Rate [ Bilateral] Respiratory 5 L 21 Rate Respiratory Rate [Bilateral ] Blood Pressure 97/58 107/65 99/57 O2 Sat by Pulse 98 99 100 Oximetry 07/05/18 07/05/18 07/05/18 00:00 00:15 00:30 Temperature 99.3 F Pulse Rate 122 H 123 H 129 H Pulse Rate [ Bilateral] Respiratory 19 19 18 Rate Respiratory Rate [Bilateral ] Blood Pressure 114/71 115/71 112/78 O2 Sat by Pulse 98 98 98 Oximetry 07/05/18 07/05/18 07/05/18 00:45 01:00 01:15 Temperature Pulse Rate 128 H 123 H 123 H Pulse Rate [ Bilateral] Respiratory 20 18 18 Rate Respiratory Rate [Bilateral ] Blood Pressure 116/73 123/75 121/68 O2 Sat by Pulse 98 98 100 Oximetry 07/05/18 07/05/18 07/05/18 01:30 01:45 02:00 Temperature Pulse Rate 124 H 119 H 120 H Pulse Rate [ Bilateral] Respiratory 20 20 22 Rate Respiratory Rate [Bilateral ] Blood Pressure 109/74 118/73 110/76 O2 Sat by Pulse 99 Oximetry 07/05/18 07/05/18 07/05/18 02:15 02:30 02:45 Temperature Pulse Rate 117 H 121 H 119 H Pulse Rate [ Bilateral] Respiratory 17 16 19 Rate Respiratory Rate [Bilateral ] Blood Pressure 118/74 117/71 115/72 O2 Sat by Pulse 97 98 Oximetry 07/05/18 07/05/18 07/05/18 03:00 03:15 03:30 Temperature Pulse Rate 122 H 121 H 122 H Pulse Rate [ Bilateral] Respiratory 24 19 18 Rate Respiratory Rate [Bilateral ] Blood Pressure 124/76 119/75 120/78 O2 Sat by Pulse 98 99 99 Oximetry 07/05/18 07/05/18 07/05/18 03:45 04:00 04:15 Temperature 98.9 F Pulse Rate 120 H 117 H 115 H Pulse Rate [ Bilateral] Respiratory 19 18 18 Rate Respiratory Rate [Bilateral ] Blood Pressure 124/73 110/71 121/73 O2 Sat by Pulse 98 98 98 Oximetry 07/05/18 07/05/18 07/05/18 04:30 04:41 04:45 Temperature Pulse Rate 117 H 117 H 116 H Pulse Rate [ Bilateral] Respiratory 18 18 Rate Respiratory Rate [Bilateral ] Blood Pressure 113/71 103/55 107/67 O2 Sat by Pulse 99 98 Oximetry 07/05/18 07/05/18 07/05/18 05:00 05:15 05:30 Temperature Pulse Rate 112 H 119 H 111 H Pulse Rate [ Bilateral] Respiratory 18 18 18 Rate Respiratory Rate [Bilateral ] Blood Pressure 107/67 116/74 116/69 O2 Sat by Pulse 97 Oximetry 07/05/18 07/05/18 07/05/18 05:45 06:00 06:15 Temperature Pulse Rate 113 H 113 H 117 H Pulse Rate [ Bilateral] Respiratory 18 18 18 Rate Respiratory Rate [Bilateral ] Blood Pressure 116/74 115/71 111/70 O2 Sat by Pulse Oximetry 07/05/18 07/05/18 07/05/18 06:30 06:45 07:00 Temperature Pulse Rate 115 H 118 H 121 H Pulse Rate [ Bilateral] Respiratory 16 18 18 Rate Respiratory Rate [Bilateral ] Blood Pressure 109/78 110/74 110/74 O2 Sat by Pulse 97 98 96 Oximetry 07/05/18 07/05/18 07/05/18 07:13 07:15 07:24 Temperature Pulse Rate 116 H 121 H Pulse Rate [ 117 H Bilateral] Respiratory 15 Rate Respiratory 18 Rate [Bilateral ] Blood Pressure 115/58 110/71 O2 Sat by Pulse 100 97 Oximetry 07/05/18 07/05/18 07/05/18 07:29 07:30 07:45 Temperature 98.4 F Pulse Rate 117 H 116 H Pulse Rate [ Bilateral] Respiratory 21 22 Rate Respiratory Rate [Bilateral ] Blood Pressure 110/72 116/73 O2 Sat by Pulse Oximetry 07/05/18 07/05/18 07:52 08:00 Temperature Pulse Rate 119 H Pulse Rate [ 118 H Bilateral] Respiratory 18 Rate Respiratory 18 Rate [Bilateral ] Blood Pressure 122/73 O2 Sat by Pulse 97 Oximetry Constitutional: no acute distress, alert Eyes: non-icteric ENT: oropharynx moist, other (ETT in position) Neck: supple, no JVD Effort: normal Ascultation: Bilateral: clear, diminished breath sounds Percussion: Bilateral: not dull Tactile fremitus: Bilateral: normal Cardiovascular: regular rate and rhythm Gastrointestinal: hypoactive bowel sounds, tender, other (mildly distended,open covered exploratory lab,colostomy) Integumentary: normal Extremities: no cyanosis, no edema Neurologic: normal mental status, non-focal exam Psychiatric: mood appropriate CBC and BMP: 07/05/18 03:14 07/05/18 03:14 ABG, PT/INR, D-dimer: ABG POC ABG pH 7.419 (7.35-7.45) 07/05/18 04:45 POC ABG pCO2 50.6 (35-45) H 07/05/18 04:45 POC ABG pO2 181 (80-105) H 07/05/18 04:45 POC ABG HCO3 32.7 (22-26 mml/L) 07/05/18 04:45 POC ABG Total CO2 34 (23-27mmol/L) 07/05/18 04:45 POC ABG O2 Sat 100 07/05/18 04:45 PT/INR, D-dimer PT 18.7 Sec. (12.2-14.9) H 07/04/18 19:00 INR 1.46 (0.87-1.13) H 07/04/18 19:00 Abnormal lab findings: Abnormal Labs 06/24/18 06/24/18 06/24/18 11:18 11:19 11:19 WBC 19.0 H RBC Hgb Hct MCHC 35 H RDW Plt Count 457 H Seg Neuts % (Manual) 88.0 H Lymphocytes % (Manual) 2.0 L Seg Neutrophils # Man 16.7 H Lymphocytes # (Manual) 0.4 L Monocytes # (Manual) PT 15.9 H INR 1.19 H Heparin Anti-Xa Level POC ABG pH POC ABG pCO2 POC ABG pO2 Sodium 136 L Potassium 2.8 L* Chloride 96.7 L Carbon Dioxide BUN Creatinine 0.4 L Glucose 146 H POC Glucose Calcium Phosphorus Total Bilirubin 1.90 H Direct Bilirubin 1.5 H Alkaline Phosphatase 264 H C-Reactive Protein NT-Pro-B Natriuret Pep Total Protein Albumin 3.0 L Lipase 8 L Ur Specific [place] Vancomycin Trough Crossmatch 06/24/18 06/24/18 06/25/18 13:00 19:47 06:55 WBC 18.3 H RBC Hgb Hct MCHC 35 H RDW Plt Count 481 H Seg Neuts % (Manual) 88.0 H Lymphocytes % (Manual) 4.0 L Seg Neutrophils # Man 16.1 H Lymphocytes # (Manual) 0.7 L Monocytes # (Manual) PT INR Heparin Anti-Xa Level POC ABG pH POC ABG pCO2 POC ABG pO2 Sodium Potassium 3.5 L D Chloride Carbon Dioxide 21 L BUN Creatinine 0.3 L Glucose 166 H POC Glucose Calcium 7.4 L D Phosphorus Total Bilirubin Direct Bilirubin Alkaline Phosphatase C-Reactive Protein NT-Pro-B Natriuret Pep Total Protein Albumin Lipase Ur Specific [place] > 1.059 H Vancomycin Trough Crossmatch 06/25/18 06/26/18 06/26/18 06:55 11:54 11:54 WBC 19.9 H RBC 3.48 L Hgb Hct MCHC RDW Plt Count 583 H Seg Neuts % (Manual) Lymphocytes % (Manual) Seg Neutrophils # Man Lymphocytes # (Manual) Monocytes # (Manual) PT INR Heparin Anti-Xa Level POC ABG pH POC ABG pCO2 POC ABG pO2 Sodium 146 H Potassium 3.5 L Chloride 108.3 H 109.9 H Carbon Dioxide BUN Creatinine 0.4 L 0.3 L Glucose 159 H 153 H POC Glucose Calcium 7.7 L 8.2 L Phosphorus Total Bilirubin Direct Bilirubin Alkaline Phosphatase 152 H C-Reactive Protein NT-Pro-B Natriuret Pep Total Protein 5.3 L Albumin 2.1 L Lipase Ur Specific [place] Vancomycin Trough Crossmatch 06/26/18 06/26/18 06/27/18 14:12 20:37 02:04 WBC RBC Hgb Hct MCHC RDW Plt Count Seg Neuts % (Manual) Lymphocytes % (Manual) Seg Neutrophils # Man Lymphocytes # (Manual) Monocytes # (Manual) PT INR Heparin Anti-Xa Level POC ABG pH 7.471 H 7.458 H POC ABG pCO2 POC ABG pO2 74 L 70 L Sodium Potassium Chloride Carbon Dioxide BUN Creatinine Glucose POC Glucose Calcium Phosphorus Total Bilirubin Direct Bilirubin Alkaline Phosphatase C-Reactive Protein 25.70 H NT-Pro-B Natriuret Pep Total Protein Albumin Lipase Ur Specific [place] Vancomycin Trough Crossmatch 06/27/18 06/27/18 06/28/18 09:19 11:50 00:17 WBC 24.5 H 37.2 H RBC Hgb Hct MCHC RDW 15.4 H Plt Count 583 H 657 H Seg Neuts % (Manual) 98.0 H 88.5 H Lymphocytes % (Manual) 1.0 L 4.0 L Seg Neutrophils # Man 24.0 H 32.9 H Lymphocytes # (Manual) 0.2 L Monocytes # (Manual) 1.1 H PT INR Heparin Anti-Xa Level POC ABG pH POC ABG pCO2 POC ABG pO2 Sodium 146 H Potassium 3.5 L Chloride Carbon Dioxide BUN Creatinine 0.3 L Glucose 176 H POC Glucose Calcium 8.2 L Phosphorus Total Bilirubin Direct Bilirubin Alkaline Phosphatase C-Reactive Protein NT-Pro-B Natriuret Pep Total Protein Albumin Lipase Ur Specific [place] Vancomycin Trough Crossmatch 06/28/18 06/28/18 06/28/18 09:56 09:56 09:56 WBC 37.8 H RBC Hgb Hct MCHC RDW 15.3 H Plt Count 634 H Seg Neuts % (Manual) Lymphocytes % (Manual) Seg Neutrophils # Man Lymphocytes # (Manual) Monocytes # (Manual) PT INR Heparin Anti-Xa Level POC ABG pH POC ABG pCO2 POC ABG pO2 Sodium 146 H Potassium 2.8 L* Chloride Carbon Dioxide 31 H BUN Creatinine 0.3 L Glucose 142 H POC Glucose Calcium 8.2 L Phosphorus Total Bilirubin Direct Bilirubin Alkaline Phosphatase C-Reactive Protein NT-Pro-B Natriuret Pep 1572 H Total Protein Albumin Lipase Ur Specific [place] Vancomycin Trough Crossmatch 06/28/18 06/28/18 06/29/18 13:19 21:24 00:57 WBC 28.9 H RBC Hgb Hct MCHC RDW Plt Count 681 H Seg Neuts % (Manual) 93.0 H Lymphocytes % (Manual) 1.5 L Seg Neutrophils # Man 26.9 H Lymphocytes # (Manual) 0.4 L Monocytes # (Manual) PT INR Heparin Anti-Xa Level POC ABG pH 7.470 H POC ABG pCO2 53.0 H POC ABG pO2 120 H Sodium Potassium 3.0 L Chloride Carbon Dioxide 33 H BUN Creatinine 0.3 L Glucose 116 H POC Glucose Calcium 8.2 L Phosphorus Total Bilirubin Direct Bilirubin Alkaline Phosphatase C-Reactive Protein NT-Pro-B Natriuret Pep Total Protein Albumin Lipase Ur Specific [place] Vancomycin Trough Crossmatch 06/29/18 06/29/18 06/29/18 05:58 05:58 12:21 WBC 25.8 H RBC Hgb Hct MCHC RDW Plt Count 661 H Seg Neuts % (Manual) Lymphocytes % (Manual) Seg Neutrophils # Man Lymphocytes # (Manual) Monocytes # (Manual) PT INR Heparin Anti-Xa Level POC ABG pH POC ABG pCO2 POC ABG pO2 Sodium Potassium 2.7 L* Chloride Carbon Dioxide 35 H BUN Creatinine 0.3 L Glucose 132 H POC Glucose 130 H Calcium 8.2 L Phosphorus Total Bilirubin Direct Bilirubin Alkaline Phosphatase C-Reactive Protein NT-Pro-B Natriuret Pep Total Protein Albumin Lipase Ur Specific [place] Vancomycin Trough Crossmatch 06/29/18 06/29/18 06/30/18 17:53 18:52 05:02 WBC RBC Hgb Hct MCHC RDW Plt Count Seg Neuts % (Manual) Lymphocytes % (Manual) Seg Neutrophils # Man Lymphocytes # (Manual) Monocytes # (Manual) PT INR Heparin Anti-Xa Level POC ABG pH POC ABG pCO2 POC ABG pO2 Sodium Potassium 3.1 L Chloride Carbon Dioxide 33 H BUN Creatinine 0.3 L Glucose 129 H POC Glucose 109 H 106 H Calcium 8.2 L Phosphorus Total Bilirubin Direct Bilirubin Alkaline Phosphatase C-Reactive Protein NT-Pro-B Natriuret Pep Total Protein Albumin Lipase Ur Specific [place] Vancomycin Trough Crossmatch 06/30/18 06/30/18 06/30/18 07:19 07:19 16:17 WBC 23.1 H RBC Hgb Hct MCHC RDW Plt Count 652 H Seg Neuts % (Manual) Lymphocytes % (Manual) Seg Neutrophils # Man Lymphocytes # (Manual) Monocytes # (Manual) PT INR Heparin Anti-Xa Level POC ABG pH POC ABG pCO2 POC ABG pO2 Sodium Potassium 2.8 L* Chloride Carbon Dioxide BUN Creatinine 0.3 L Glucose 109 H POC Glucose Calcium 8.2 L Phosphorus Total Bilirubin Direct Bilirubin Alkaline Phosphatase C-Reactive Protein NT-Pro-B Natriuret Pep Total Protein Albumin Lipase Ur Specific [place] Vancomycin Trough < 4.0 L Crossmatch 06/30/18 06/30/18 06/30/18 16:17 16:17 19:00 WBC RBC Hgb Hct MCHC RDW Plt Count Seg Neuts % (Manual) Lymphocytes % (Manual) Seg Neutrophils # Man Lymphocytes # (Manual) Monocytes # (Manual) PT INR Heparin Anti-Xa Level POC ABG pH POC ABG pCO2 POC ABG pO2 Sodium Potassium 3.0 L 3.2 L Chloride Carbon Dioxide BUN Creatinine 0.3 L Glucose 138 H POC Glucose Calcium Phosphorus 2.30 L D Total Bilirubin Direct Bilirubin Alkaline Phosphatase C-Reactive Protein NT-Pro-B Natriuret Pep Total Protein Albumin Lipase Ur Specific [place] Vancomycin Trough Crossmatch 07/01/18 07/01/18 07/01/18 04:04 04:04 12:21 WBC 26.3 H RBC Hgb Hct MCHC RDW Plt Count Seg Neuts % (Manual) Lymphocytes % (Manual) Seg Neutrophils # Man Lymphocytes # (Manual) Monocytes # (Manual) PT INR Heparin Anti-Xa Level POC ABG pH POC ABG pCO2 POC ABG pO2 Sodium 147 H Potassium Chloride Carbon Dioxide BUN 22 H Creatinine 0.3 L Glucose 126 H POC Glucose 190 H Calcium Phosphorus Total Bilirubin Direct Bilirubin Alkaline Phosphatase C-Reactive Protein NT-Pro-B Natriuret Pep Total Protein Albumin Lipase Ur Specific [place] Vancomycin Trough Crossmatch 07/02/18 07/02/18 07/03/18 04:17 04:17 09:58 WBC 40.2 H* 48.6 H* RBC 3.51 L Hgb Hct MCHC RDW Plt Count Seg Neuts % (Manual) Lymphocytes % (Manual) Seg Neutrophils # Man Lymphocytes # (Manual) Monocytes # (Manual) PT INR Heparin Anti-Xa Level POC ABG pH POC ABG pCO2 POC ABG pO2 Sodium Potassium 3.4 L Chloride Carbon Dioxide 32 H BUN 30 H Creatinine 0.3 L Glucose 166 H POC Glucose Calcium Phosphorus Total Bilirubin Direct Bilirubin Alkaline Phosphatase C-Reactive Protein NT-Pro-B Natriuret Pep Total Protein Albumin Lipase Ur Specific [place] Vancomycin Trough Crossmatch 07/03/18 07/03/18 07/04/18 09:58 11:07 05:37 WBC 48.5 H* RBC 3.53 L Hgb Hct MCHC RDW Plt Count 477 H Seg Neuts % (Manual) Lymphocytes % (Manual) Seg Neutrophils # Man Lymphocytes # (Manual) Monocytes # (Manual) PT INR Heparin Anti-Xa Level POC ABG pH POC ABG pCO2 POC ABG pO2 Sodium Potassium 3.5 L Chloride Carbon Dioxide 31 H BUN 33 H Creatinine 0.3 L Glucose 162 H POC Glucose Calcium Phosphorus Total Bilirubin Direct Bilirubin Alkaline Phosphatase C-Reactive Protein 13.20 H NT-Pro-B Natriuret Pep Total Protein Albumin Lipase Ur Specific [place] Vancomycin Trough Crossmatch 07/04/18 07/04/18 07/04/18 05:37 17:54 19:00 WBC RBC Hgb 9.5 L Hct 28.7 L MCHC RDW Plt Count 512 H Seg Neuts % (Manual) Lymphocytes % (Manual) Seg Neutrophils # Man Lymphocytes # (Manual) Monocytes # (Manual) PT INR Heparin Anti-Xa Level POC ABG pH POC ABG pCO2 POC ABG pO2 Sodium Potassium 3.4 L Chloride Carbon Dioxide 32 H BUN 30 H Creatinine 0.3 L Glucose 146 H POC Glucose Calcium Phosphorus Total Bilirubin Direct Bilirubin Alkaline Phosphatase C-Reactive Protein NT-Pro-B Natriuret Pep Total Protein Albumin Lipase Ur Specific [place] Vancomycin Trough Crossmatch See Detail 07/04/18 07/04/18 07/05/18 19:00 21:50 03:14 WBC 36.6 H RBC 3.12 L Hgb 9.1 L Hct 27.5 L MCHC RDW Plt Count 529 H Seg Neuts % (Manual) Lymphocytes % (Manual) Seg Neutrophils # Man Lymphocytes # (Manual) Monocytes # (Manual) PT 18.7 H INR 1.46 H Heparin Anti-Xa Level POC ABG pH 7.469 H POC ABG pCO2 45.8 H POC ABG pO2 109 H Sodium Potassium Chloride Carbon Dioxide BUN Creatinine Glucose POC Glucose Calcium Phosphorus Total Bilirubin Direct Bilirubin Alkaline Phosphatase C-Reactive Protein NT-Pro-B Natriuret Pep Total Protein Albumin Lipase Ur Specific [place] Vancomycin Trough Crossmatch 07/05/18 07/05/18 07/05/18 03:14 03:14 04:45 WBC RBC Hgb Hct MCHC RDW Plt Count Seg Neuts % (Manual) Lymphocytes % (Manual) Seg Neutrophils # Man Lymphocytes # (Manual) Monocytes # (Manual) PT INR Heparin Anti-Xa Level 0.10 L POC ABG pH POC ABG pCO2 50.6 H POC ABG pO2 181 H Sodium Potassium Chloride Carbon Dioxide BUN 29 H Creatinine 0.2 L Glucose 149 H POC Glucose Calcium 8.1 L Phosphorus Total Bilirubin Direct Bilirubin Alkaline Phosphatase C-Reactive Protein NT-Pro-B Natriuret Pep Total Protein 4.5 L Albumin 1.6 L Lipase Ur Specific [place] Vancomycin Trough Crossmatch Chest x-ray: report reviewed, image reviewed
[2018-07-05] MEDS: SODIUM CHLORIDE FLUSH SYRINGE 10 ML IV SCH ×2 (09:21→21:39)
[2018-07-05] MEDS: COLACE PO SCH ×2 (10:08→21:38)
[2018-07-05] MEDS: DIFLUCAN 200 ML IV SCH (10:08)
[2018-07-05] MEDS: HABITROL TD SCH (10:09)
[2018-07-05] MEDS: PROTONIX IV SCH ×2 (10:09→21:39)
[2018-07-05] MEDS ORDERED: D5/0.45NS 1,000 ML IV SCH (11:00)
[2018-07-05] MEDS ORDERED: HEPARIN IV ONE (13:15)
--- NOTE | 2018-07-05 13:50 | Progress Note ---
Assessment and Plan Assessment and plan: Patient is 58 yo female with Nicotine Dependence, Severe Malnutrition present to ED for evaluation. Patient presented with abdominal pain for 1 week progressively worsening symptoms over the same time frame. Pt states that her abdominal pain is 10/10, generalized, nonradiating, constant, worsened with movement. Pt denies NVD, ingestion of food/water from new or different sources, BRBPR, skin rash, or recent ill contacts. She was seen and evaluated in ED and found to have PSBO complicated by Bowel Perforation, SIRS, and severe malnutrition. Pt admitted to surgical floor. Surgery consulted in ED. Patient was taken to OR urgently. She had exploratory lap. surgeon found Sigmoid diverticulitis with perforation of distal sigmoid colon, purulent peritonitis. Peritoneal lavage and Posey's procedure was done on 06/24. Post-op was doing well, but on 06/28 developed acute resp failure was put on PBIPAP, transferred to ICU. Pulmonology consulted. she was given lasix, she improved BIPAP, discontinue d, placed on HFNC Oxygen and now on oxygen by VT. today has worsening leukocytosis therefore CT Chest/Abd ordered. 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 Patient was also noted to have right lower quadrant not appear viable. And was taken back for exploratory laparotomy. * s/p Exploratory laparotomy, small bowel resection, partial colon resection, temporary abdominal closure with abthera vac 07/04/18, POD 1 and * Exploratory laparotomy, Ezequiel's procedure 06/24/18 * Continiues on full ventilatory support * IV heparin infusion, * Plan is to repeat scan in am and possible return to OR for evaluation of remaining bowel * PICC line placed for TPN. * Discussed extensively with patients brother, Sisters and Significant other. 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 Continue Heparin drip Abdomen left open WITH Temporal closure Status post ex lap, peritoneal lavage, Posey's procedure on 06/24 Electrolytes have been replaced abx per ID. On cefepime, fluconazole, flagyl lasix, oxygen supplement, breathing rx as needed DVT prophylaxis Lovenox Full code status discussed with surgeon and ID Physician Fu Ct chest/abd The high probability of a clinically significant, sudden or life threatening deterioration of the [GI] system(s) required my full and direct attention, intervention and personal management. The aggregate critical care time was [55] minutes. This time is in addition to time spent performing reported procedures but includes the following: [x] Data Review and interpretation [x] Patient assessment and monitoring of vital signs [x] Documentation [x] Medication orders and management History Interval history: Patient' seen and examined this morning Remains on full ventilatory support, nodes to respond to question, appears anxious. No other adverse event reported by Nursing staff. Hospitalist Physical - Physical exam Narrative exam: Gen: in mild distress on full mechnical ventilatory support HEENT: Normocephalic, atraumatic, oct in place, ett noted Neck: supple, no JVD Heart: S1 and S2 reg, no murmurs, rubs or gallop Lungs: Bilateral crackles less, no wheeze Abd: soft, NT, abthera vac in place, clear drainage noted, osteomy noted. Ext:No edema, no clubbing, no cyanosis Neuro: Awake,alert, oriented x 3, moves all ext, non focal Psych:anxious : Sharif - Constitutional Vitals: Temp Pulse Resp BP Pulse Ox 98.9 F 121 H 20 127/69 99 07/05/18 12:00 07/05/18 12:08 07/05/18 11:00 07/05/18 12:08 07/05/18 12:08 General appearance: Present: mild distress Results - Labs CBC & Chem 7: 07/05/18 03:14 07/05/18 03:14 Labs: Laboratory Last Values WBC 36.6 K/mm3 (4.5-11.0) H 07/05/18 03:14 RBC 3.12 M/mm3 (3.65-5.03) L 07/05/18 03:14 Hgb 9.1 gm/dl (10.1-14.3) L 07/05/18 03:14 Hct 27.5 % (30.3-42.9) L 07/05/18 03:14 MCV 88 fl (79-97) 07/05/18 03:14 MCH 29 pg (28-32) 07/05/18 03:14 MCHC 33 % (30-34) 07/05/18 03:14 RDW 15.2 % (13.2-15.2) 07/05/18 03:14 Plt Count 529 K/mm3 (140-440) H 07/05/18 03:14 Add Manual Diff Complete 06/29/18 00:57 Total Counted 200 06/29/18 00:57 Seg Neutrophils % Wool Hat Finisher 06/29/18 00:57 Seg Neuts % (Manual) 93.0 % (40.0-70.0) H 06/29/18 00:57 3.5 % 06/29/18 00:57 1.5 % (13.4-35.0) L 06/29/18 00:57 Reactive Lymphs % (Man) 0.5 % 06/29/18 00:57 1.5 % (0.0-7.3) 06/29/18 00:57 0 % (0.0-4.3) 06/29/18 00:57 0 % (0.0-1.8) 06/29/18 00:57 0 % 06/29/18 00:57 0 % 06/29/18 00:57 0 % 06/29/18 00:57 0 % 06/29/18 00:57 Nucleated RBC % Not Reportable 06/29/18 00:57 Seg Neutrophils # Man 26.9 K/mm3 (1.8-7.7) H 06/29/18 00:57 Band Neutrophils # 1.0 K/mm3 06/29/18 00:57 0.4 K/mm3 (1.2-5.4) L 06/29/18 00:57 Abs React Lymphs (Man) 0.1 K/mm3 06/29/18 00:57 0.4 K/mm3 (0.0-0.8) 06/29/18 00:57 0.0 K/mm3 (0.0-0.4) 06/29/18 00:57 0.0 K/mm3 (0.0-0.1) 06/29/18 00:57 0.0 K/mm3 06/29/18 00:57 0.0 K/mm3 06/29/18 00:57 0.0 K/mm3 06/29/18 00:57 Blast Cells # 0.0 K/mm3 06/29/18 00:57 WBC Morphology Not Reportable 06/29/18 00:57 WBC Morphology TNR 06/29/18 00:57 Hypersegmented Neuts Few 06/29/18 00:57 Hyposegmented Neuts Not Reportable 06/29/18 00:57 Hypogranular Neuts Not Reportable 06/29/18 00:57 Not Reportable 06/29/18 00:57 Not Reportable 06/29/18 00:57 Not Reportable 06/29/18 00:57 Not Reportable 06/29/18 00:57 Not Reportable 06/29/18 00:57 Not Reportable 06/29/18 00:57 Appears increased 06/29/18 00:57 Not Reportable 06/29/18 00:57 Plt Clumps, EDTA Not Reportable 06/29/18 00:57 Not Reportable 06/29/18 00:57 Not Reportable 06/29/18 00:57 Not Reportable 06/29/18 00:57 Plt Morphology Comment Not Reportable 06/29/18 00:57 RBC Morphology Not Reportable 06/29/18 00:57 Dimorphic RBCs Not Reportable 06/29/18 00:57 Not Reportable 06/29/18 00:57 Not Reportable 06/29/18 00:57 Not Reportable 06/29/18 00:57 Not Reportable 06/29/18 00:57 Not Reportable 06/29/18 00:57 Not Reportable 06/29/18 00:57 Not Reportable 06/29/18 00:57 Not Reportable 06/29/18 00:57 Not Reportable 06/29/18 00:57 Not Reportable 06/29/18 00:57 Not Reportable 06/29/18 00:57 Not Reportable 06/29/18 00:57 Not Reportable 06/29/18 00:57 Not Reportable 06/29/18 00:57 Not Reportable 06/29/18 00:57 Not Reportable 06/29/18 00:57 Not Reportable 06/29/18 00:57 Not Reportable 06/29/18 00:57 Not Reportable 06/29/18 00:57 Acanthocytes (Spur) Not Reportable 06/29/18 00:57 Rouleaux Not Reportable 06/29/18 00:57 Not Reportable 06/29/18 00:57 Not Reportable 06/29/18 00:57 Not Reportable 06/29/18 00:57 Not Reportable 06/29/18 00:57 Hem Pathologist Commnt No 06/29/18 00:57 PT 18.7 Sec. (12.2-14.9) H 07/04/18 19:00 INR 1.46 (0.87-1.13) H 07/04/18 19:00 APTT 26.7 Sec. (24.2-36.6) 07/04/18 19:00 Heparin Anti-Xa Level < 0.10 U.I./ml (0.3-0.7) L 07/05/18 10:57 POC ABG pH 7.419 (7.35-7.45) 07/05/18 04:45 POC ABG pCO2 50.6 (35-45) H 07/05/18 04:45 POC ABG pO2 181 (80-105) H 07/05/18 04:45 POC ABG HCO3 32.7 (22-26 mml/L) 07/05/18 04:45 POC ABG Total CO2 34 (23-27mmol/L) 07/05/18 04:45 POC ABG O2 Sat 100 07/05/18 04:45 POC ABG Base Excess 8 ((-2) - (+3)mmol/L) 07/05/18 04:45 45 % 07/05/18 04:45 Sodium 142 mmol/L (137-145) 07/05/18 03:14 Potassium 4.1 mmol/L (3.6-5.0) D 07/05/18 03:14 Chloride 105.1 mmol/L (98-107) 07/05/18 03:14 Carbon Dioxide 30 mmol/L (22-30) 07/05/18 03:14 11 mmol/L 07/05/18 03:14 BUN 29 mg/dL (7-17) H 07/05/18 03:14 0.2 mg/dL (0.7-1.2) L 07/05/18 03:14 Estimated GFR > 60 ml/min 07/05/18 03:14 145 % 07/05/18 03:14 Glucose 149 mg/dL (65-100) H 07/05/18 03:14 POC Glucose 190 (70-105) H 07/01/18 12:21 Lactic Acid 1.40 mmol/L (0.7-2.0) 07/04/18 21:11 Calcium 8.1 mg/dL (8.4-10.2) L 07/05/18 03:14 Phosphorus 2.30 mg/dL (2.5-4.5) L D 06/30/18 16:17 Magnesium 2.00 mg/dL (1.7-2.3) 06/30/18 16:17 0.50 mg/dL (0.1-1.2) 07/05/18 03:14 1.5 mg/dL (0-0.2) H 06/24/18 11:19 0.4 mg/dL 06/24/18 11:19 AST 16 units/L (5-40) 07/05/18 03:14 ALT 20 units/L (7-56) 07/05/18 03:14 122 units/L (35-129) 07/05/18 03:14 13.20 mg/dL (0.00-1.30) H 07/03/18 11:07 NT-Pro-B Natriuret Pep 1572 pg/mL (0-900) H 06/28/18 09:56 4.5 g/dL (6.3-8.2) L 07/05/18 03:14 1.6 g/dL (3.9-5) L 07/05/18 03:14 0.6 % 07/05/18 03:14 8 units/L (13-60) L 06/24/18 11:19 Na (Yellow) 07/03/18 Unknown Hazy (Clear) 07/03/18 Unknown 6.0 (5.0-7.0) 07/03/18 Unknown Ur Specific [place] 1.023 (1.003-1.030) 07/03/18 Unknown <15 mg/dl mg/dL (Negative) 07/03/18 Unknown Neg mg/dL (Negative) 07/03/18 Unknown Neg mg/dL (Negative) 07/03/18 Unknown Sm (Negative) 07/03/18 Unknown Neg (Negative) 07/03/18 Unknown Neg (Negative) 07/03/18 Unknown < 2.0 mg/dL (<2.0) 07/03/18 Unknown Ur Leukocyte Esterase Neg (Negative) 07/03/18 Unknown 1.0 /HPF (0.0-6.0) 07/03/18 Unknown 3.0 /HPF (0.0-6.0) 07/03/18 Unknown U Epithel Cells (Auto) 7.0 /HPF (0-13.0) 07/03/18 Unknown 1+ /HPF (Negative) 06/24/18 13:00 Few /HPF 07/03/18 Unknown Vancomycin Trough 38.9 ug/mL (5.0-20.0) H 07/05/18 10:57 Blood Type O POSITIVE 07/04/18 17:54 Antibody Screen TNR 07/04/18 17:54 FADY Antibody Screen Negative 07/04/18 17:54 Crossmatch See Detail 07/04/18 17:54 Active Medications - Current Medications Current Medications: Generic Name Dose Route Start Last Admin Trade Name Freq PRN Reason Stop Dose Admin Albuterol 2.5 mg 07/02/18 07:44 Proventil IH Q4HRT PRN Shortness Of Breath Albuterol/Ipratropium 1 ampul 07/02/18 14:00 07/05/18 07:24 Duoneb *Not For Prn Use* IH 1 ampul TIDRT MAURICIO Administration Arformoterol Tartrate 15 mcg 07/02/18 20:00 07/05/18 07:24 Brovana Nebu IH 15 mcg Q12HRT MAURICIO Administration Budesonide 0.5 mg 07/02/18 20:00 07/05/18 07:24 Pulmicort IH 0.5 mg Q12HRT MAURICIO Administration Docusate Sodium 100 mg 07/01/18 22:00 07/05/18 10:08 Colace PO Not Given BID MAURICIO Fentanyl 25 mcg 06/30/18 14:19 Sublimaze IV Q2H PRN Pain, Moderate (4-6) Hydrophilic Ointment 1 applic 07/04/18 18:23 Vaseline Lip Therapy TP Q2HR PRN Dry Lips Metronidazole 500 mg in 100 mls @ 100 mls/hr 06/24/18 22:00 07/05/18 07:00 Flagyl 500 Mg/100 Ml IV Infused Q8H MAURICIO Infusion Protocol Fluconazole 200 mls @ 100 mls/hr 06/26/18 14:00 07/05/18 12:08 Diflucan IV Infused Q24HR MAURICIO Infusion Protocol Cefepime HCl 2 gm in 100 mls @ 200 mls/hr 06/27/18 14:00 07/05/18 09:36 Maxipime/Ns 2 Gm/100 Ml IV Infused Q12HR MAURICIO Infusion Protocol Fentanyl Citrate 2,000 mcg in 100 mls @ 2.605 mls/hr 07/04/18 19:00 07/04/18 20:32 Fentanyl Drip Premix IV 1 mcg/kg/hr TITR MAURICIO 2.605 mls/hr Administration Protocol 1 MCG/KG/HR Propofol 1,000 mg in 100 mls @ 1.563 mls/hr 07/04/18 19:00 07/04/18 20:30 Diprivan 10 Mg/Ml IV 10 mcg/kg/min TITR MAURICIO 3.126 mls/hr Titration Protocol 5 MCG/KG/MIN Heparin Sodium/Sodium Chloride 25,000 unit in 500 mls @ 15 mls/hr 07/04/18 19:00 07/05/18 12:55 Heparin/ 0.45% Nacl-25,000 Unit/500 Ml IV 1,000 units/hr TITR MAURICIO 20 mls/hr Titration Protocol 750 UNITS/HR Dextrose/Sodium Chloride 1,000 mls @ 75 mls/hr 07/05/18 11:00 07/05/18 11:16 D5/0.45ns IV 75 mls/hr DIRECT MAURICIO Administration Multi-Ingred Cream/Lotion/Oil/Oint 1 applic 07/04/18 18:23 Artificial Tears Ophth Oint OU Q4HR PRN Dry Eye(s) Naloxone HCl 0.1 mg 06/24/18 18:55 Narcan 0.4 Mg/1 Ml IV Q2MIN PRN Res Rate </= 8 or 02 SAT < 92% Nicotine 14 mg 06/25/18 10:00 07/05/18 10:09 Habitrol TD 14 mg QDAY MAURICIO Administration Ondansetron HCl 4 mg 06/24/18 14:00 06/29/18 04:00 Zofran IV 4 mg Q8H PRN Administration Nausea And Vomiting Pantoprazole Sodium 40 mg 07/04/18 22:00 07/05/18 10:09 Protonix IV 40 mg BID MAURICIO Administration Sodium Chloride 10 ml 06/24/18 22:00 07/05/18 09:21 Sodium Chloride Flush Syringe 10 Ml IV 10 ml BID MAURICIO Administration Sodium Chloride 10 ml 06/24/18 14:00 Sodium Chloride Flush Syringe 10 Ml IV PRN PRN LINE FLUSH Sodium Chloride 5 ml 07/04/18 18:23 Nacl 0.9% 500 Ml IV DIRECT PRN [employer]ERIAL [employer]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 Nutrition/Malnutrition Assess - Dietary Evaluation Nutrition/Malnutrition Findings: Nutrition Notes Start: 06/30/18 16:45 Freq: Status: Active Protocol: Document 07/05/18 09:36 LP (Rec: 07/05/18 09:45 LP [id number]) Nutrition Notes Need for Assessment generated from: MD Order Initial or Follow up Reassessment Other Pertinent Diagnosis Severe enterocolitis, peritonitis, sigmoid diverticulitis s/p exp lap Current Diet NPO Labs/Tests BUN 29 BG 149 Pertinent Medications Propofol Height 5 ft 3 in Weight 52.1 kg [place] Body Weight (kg) 52.27 BMI 20.3 Subjective/Other Information Pt is S/P exp lap, small bowel resection and partial colon resection. Pt is now on vent. Burn Absent Trauma Absent #2 Nutrition Diagnosis Inadequate oral intake Etiology vent As Evidenced by Signs and Symptoms Pt NPO #1 Nutrition Diagnosis Increased nutrient needs ( specify in comment below) Diagnosis Progress(for reassessment Continues documentation) Is patient on ventilator? Yes Is Patient Ambulatory and/or Out of Bed Yes REE-([place] or-ambulatory/OOB) [ 1391.169 [id number]] Kcal/Kg value to use for calculation 33 Approximate Energy Requirements Using 1719 kcal/Kg Calculation Used for Recommendations Kcal/kg Additional Notes Pro needs 1.2-2/k-104g/ day Fluid needs 1ml/kcal Nutrition Intervention Change Diet Order: Advance diet as feasible Nutrition Support: May need TPN if unable to resume PO Add Supplement/Snack (indicate name/kcal D/c /protein ) Goal #1 Advance diet as feasible Anticipated Discharge Needs: Unable to determine at this time Follow-Up By: 07/07/18 Additional Comments Follow for diet POC
--- NOTE | 2018-07-05 14:50 | Operative Report ---
PREOPERATIVE DIAGNOSIS: Bowel ischemia. POSTOPERATIVE DIAGNOSIS: Bowel ischemia. FINDINGS: All but 40 cm of proximal small bowel was gangrenous, gangrene of proximal cecum, no pulsation in the SMA. URINE OUTPUT: 100 mL. NG TUBE OUTPUT: 500 mL. IV FLUIDS: 1400 mL. PROCEDURE: Exploratory laparotomy, small bowel resection, partial colon resection, temporary abdominal closure with ABThera VAC. ANESTHESIA: General endotracheal anesthesia. SURGEON: Mary Wilcox DO WHARF TENDER: Jca Holder MD ESTIMATED BLOOD LOSS: Minimal. PATHOLOGY: Small bowel, portion of colon. SPECIMEN DISPOSITION: To lab. CONDITION: Stable. DISPOSITION OF THE PATIENT: To PACU. HISTORY OF PRESENT ILLNESS AND INDICATION: The patient is a 58-year-old female who had presented to the hospital on 06/24/2018 with abdominal pain and was found to have perforated sigmoid diverticulitis. She was taken to the operating room emergently for an exploratory laparotomy and Ezequiel's procedure. The patient's postoperative course was complicated by respiratory issues leading her to be transferred to the ICU and started on steroids. The patient's abdominal status remained stable and she regained bowel function and was tolerating a diet. Unfortunately, the patient's white blood cell count then continued to climb and a CT scan of her chest, abdomen and pelvis was performed. The CT scan of the abdomen showed a possible abscess in the right abdomen and a repeat CTA of the abdomen showed a SMV, SMA thrombosis as well as an aortic thrombus as well as possible bowel ischemia. After a long discussion with the patient and her family, emergency surgery was recommended. I discussed all risks, benefits and alternatives to surgery with the patient and her significant other and consent was obtained. PROCEDURE IN DETAIL: The patient was identified in her hospital room and taken down to the operating room and placed on the operating table in supine position. After anesthesia was induced, a Sharif catheter was sterilely placed by the circulating nurse. The abdominal wound VAC was removed and as well as the ostomy appliance. A 4 x 4 gauze and Tegaderm was placed over the ostomy. The abdomen was prepped with Betadine and then draped in the usual sterile fashion. A timeout was performed. The fascial sutures, which were visible, were cut and unraveled and removed. Upon entering the abdomen, there was immediate visualization of necrotic small bowel. Some loose adhesions were broken up bluntly using a gloved hand until all the small bowel was freed and able to eviscerated. There was a large portion of the small bowel that was gangrenous and necrotic. There was no obvious perforation. The small bowel was run from the ligament of Treitz and approximately 40 cm of proximal small bowel from the ligament of Treitz was viable. A window was made in the mesentery proximal to the start of the small bowel gangrene and the small bowel was transected using a CORBY-75 mm blue load stapler. The bowel was then run to the terminal ileum and a window was made in the mesentery and the small bowel transected here with a CORBY-75 mm blue load stapler. The mesentery was ligated using an EnSeal. Once the specimen was removed, it was passed off the table. The SMA was palpated and there was no pulsation. The mesentery was slightly edematous. The colon was then examined and the proximal cecum did appear to be necrotic. The remainder of the ascending colon, the transverse colon and the descending colon as well as the ostomy all appeared viable. The stomach appeared viable. There was pulsation in the aorta. The white line of [place] at the right colon was then mobilized using electrocautery. A window was made in the mesentery at the proximal cecum and this was transected using a CORBY-75 mm blue load stapler x 2. The mesentery was then ligated with the EnSeal and this was also passed off the table as a specimen. The abdomen was then irrigated and hemostasis checked for. There was some generalized oozing from the retroperitoneal tissues, which was pinpoint and in the pelvis. This area was packed with lap sponges. The NG tube was palpated in the stomach and was in correct positioning. We then removed the sponges. We irrigated the abdomen and achieved hemostasis using Elva powder in the pelvis as well as in the right lower quadrant and packed these areas with lap sponges, 5 in total. We then placed the bowel back in normal anatomic position and temporarily we closed the abdomen with an ABThera VAC. The ABThera VAC was applied in the usual fashion. An ostomy appliance was applied over the colostomy. The VAC was hooked to -125 mmHg suction and there was no leak and there was a good seal. At the end of the case, all sponge, instrument, sharp counts were correct x 2. The patient was taken to the PACU in stable condition. JOB# [id number] ANOOP/ROSIE MCDONNELL
--- NOTE | 2018-07-05 15:12 | Progress Note ---
Assessment and Plan 58 yo F s/p Exploratory laparotomy, small bowel resection, partial colon resection, temporary abdominal closure with abthera vac 07/04/18, POD 1 and Exploratory laparotomy, Ezequiel's procedure 06/24/18 Plan: 1. continue vent, do not extubate 2. NPO 3. IVF 4. continue fent and propofol gtt 5. abthera vac to -125mmHg suction, do not remove 6. NGT to LIWS 7. continue heparin gtt 8. PICC consult to start TPN 9. reconsult r d internship 10. will plan to return to OR on Friday 07/07 to reevaluate remaining bowel. Discussed plan with Dr. Oliveira Thank you, please call with questions Subjective Date of service: 07/05/18 Narrative: Patient seen and examined. Awake on vent. No overnight events noted. Pt denies pain. Objective Vital Signs - 12hr 07/05/18 07/05/18 07/05/18 03:15 03:30 03:45 Temperature Pulse Rate 121 H 122 H 120 H Pulse Rate [ Bilateral] Respiratory 19 18 19 Rate Respiratory Rate [Bilateral ] Blood Pressure 119/75 120/78 124/73 O2 Sat by Pulse 99 99 98 Oximetry 07/05/18 07/05/18 07/05/18 04:00 04:15 04:30 Temperature 98.9 F Pulse Rate 117 H 115 H 117 H Pulse Rate [ Bilateral] Respiratory 18 18 18 Rate Respiratory Rate [Bilateral ] Blood Pressure 110/71 121/73 113/71 O2 Sat by Pulse 98 98 Oximetry 07/05/18 07/05/18 07/05/18 04:41 04:45 05:00 Temperature Pulse Rate 117 H 116 H 112 H Pulse Rate [ Bilateral] Respiratory 18 18 Rate Respiratory Rate [Bilateral ] Blood Pressure 103/55 107/67 107/67 O2 Sat by Pulse 99 98 Oximetry 07/05/18 07/05/18 07/05/18 05:15 05:30 05:45 Temperature Pulse Rate 119 H 111 H 113 H Pulse Rate [ Bilateral] Respiratory 18 18 18 Rate Respiratory Rate [Bilateral ] Blood Pressure 116/74 116/69 116/74 O2 Sat by Pulse 97 Oximetry 07/05/18 07/05/18 07/05/18 06:00 06:15 06:30 Temperature Pulse Rate 113 H 117 H 115 H Pulse Rate [ Bilateral] Respiratory 18 18 16 Rate Respiratory Rate [Bilateral ] Blood Pressure 115/71 111/70 109/78 O2 Sat by Pulse 97 Oximetry 07/05/18 07/05/18 07/05/18 06:45 07:00 07:13 Temperature Pulse Rate 118 H 121 H 116 H Pulse Rate [ Bilateral] Respiratory 18 18 Rate Respiratory Rate [Bilateral ] Blood Pressure 110/74 110/74 115/58 O2 Sat by Pulse 98 96 100 Oximetry 07/05/18 07/05/18 07/05/18 07:15 07:24 07:29 Temperature 98.4 F Pulse Rate 121 H Pulse Rate [ 117 H Bilateral] Respiratory 15 Rate Respiratory 18 Rate [Bilateral ] Blood Pressure 110/71 O2 Sat by Pulse 97 Oximetry 07/05/18 07/05/18 07/05/18 07:30 07:45 07:52 Temperature Pulse Rate 117 H 116 H Pulse Rate [ 118 H Bilateral] Respiratory 21 22 Rate Respiratory 18 Rate [Bilateral ] Blood Pressure 110/72 116/73 O2 Sat by Pulse Oximetry 07/05/18 07/05/18 07/05/18 08:00 08:15 08:30 Temperature Pulse Rate 119 H 118 H 120 H Pulse Rate [ Bilateral] Respiratory 18 18 16 Rate Respiratory Rate [Bilateral ] Blood Pressure 122/73 126/74 118/75 O2 Sat by Pulse 97 97 Oximetry 07/05/18 07/05/18 07/05/18 08:45 09:00 09:15 Temperature Pulse Rate 122 H 127 H 122 H Pulse Rate [ Bilateral] Respiratory 20 19 22 Rate Respiratory Rate [Bilateral ] Blood Pressure 127/76 129/75 125/81 O2 Sat by Pulse 97 96 Oximetry 07/05/18 07/05/18 07/05/18 09:30 09:45 10:00 Temperature Pulse Rate 127 H 119 H 121 H Pulse Rate [ Bilateral] Respiratory 20 21 20 Rate Respiratory Rate [Bilateral ] Blood Pressure 125/77 109/72 125/71 O2 Sat by Pulse 96 98 99 Oximetry 07/05/18 07/05/18 07/05/18 10:15 10:30 10:45 Temperature Pulse Rate 129 H 129 H 124 H Pulse Rate [ Bilateral] Respiratory 22 21 24 Rate Respiratory Rate [Bilateral ] Blood Pressure 131/75 114/77 121/68 O2 Sat by Pulse 97 97 98 Oximetry 07/05/18 07/05/18 07/05/18 11:00 11:15 11:30 Temperature Pulse Rate 121 H 118 H 120 H Pulse Rate [ Bilateral] Respiratory 20 18 18 Rate Respiratory Rate [Bilateral ] Blood Pressure 111/62 114/65 111/71 O2 Sat by Pulse 98 97 99 Oximetry 07/05/18 07/05/18 07/05/18 11:45 12:00 12:08 Temperature 98.9 F Pulse Rate 117 H 121 H 121 H Pulse Rate [ Bilateral] Respiratory 20 18 Rate Respiratory Rate [Bilateral ] Blood Pressure 119/66 121/70 127/69 O2 Sat by Pulse 98 97 99 Oximetry 07/05/18 07/05/18 07/05/18 12:15 12:30 12:45 Temperature Pulse Rate 121 H 120 H 121 H Pulse Rate [ Bilateral] Respiratory 19 18 18 Rate Respiratory Rate [Bilateral ] Blood Pressure 127/69 117/72 126/78 O2 Sat by Pulse 98 97 98 Oximetry 07/05/18 07/05/18 07/05/18 13:00 13:15 13:30 Temperature Pulse Rate 120 H 119 H 123 H Pulse Rate [ Bilateral] Respiratory 18 18 19 Rate Respiratory Rate [Bilateral ] Blood Pressure 124/74 119/72 123/76 O2 Sat by Pulse 98 98 Oximetry 07/05/18 07/05/18 07/05/18 13:45 14:00 14:15 Temperature Pulse Rate 121 H 120 H 129 H Pulse Rate [ Bilateral] Respiratory 18 19 20 Rate Respiratory Rate [Bilateral ] Blood Pressure 133/70 141/71 134/79 O2 Sat by Pulse 97 97 96 Oximetry 07/05/18 14:30 Temperature Pulse Rate 123 H Pulse Rate [ Bilateral] Respiratory 15 Rate Respiratory Rate [Bilateral ] Blood Pressure 130/77 O2 Sat by Pulse 95 Oximetry - General physical appearance Narrative Exam: Gen; Awake on vent. NAD ENT: OGT bilious. ETT in place CV: S1, S2+ Resp: on vent, no wheezing Abd: soft, NT, ND. abthera vac in place with good seal - serosang drainage, clear. Ostomy pink, no stool or air Ext: no c/c/e : pizano - Labs 07/05/18 03:14 07/05/18 03:14 Diabetes panel 07/05/18 Range/Units 03:14 Sodium 142 (137-145) mmol/L Potassium 4.1 D (3.6-5.0) mmol/L Chloride 105.1 (98-107) mmol/L Carbon Dioxide 30 (22-30) mmol/L BUN 29 H (7-17) mg/dL Creatinine 0.2 L (0.7-1.2) mg/dL Glucose 149 H (65-100) mg/dL Calcium 8.1 L (8.4-10.2) mg/dL AST 16 (5-40) units/L ALT 20 (7-56) units/L Alkaline Phosphatase 122 (35-129) units/L Total Protein 4.5 L (6.3-8.2) g/dL Albumin 1.6 L (3.9-5) g/dL Calcium panel 07/05/18 Range/Units 03:14 Calcium 8.1 L (8.4-10.2) mg/dL Albumin 1.6 L (3.9-5) g/dL Pituitary panel 07/05/18 Range/Units 03:14 Sodium 142 (137-145) mmol/L Potassium 4.1 D (3.6-5.0) mmol/L Chloride 105.1 (98-107) mmol/L Carbon Dioxide 30 (22-30) mmol/L BUN 29 H (7-17) mg/dL Creatinine 0.2 L (0.7-1.2) mg/dL Glucose 149 H (65-100) mg/dL Calcium 8.1 L (8.4-10.2) mg/dL Adrenal panel 07/05/18 Range/Units 03:14 Sodium 142 (137-145) mmol/L Potassium 4.1 D (3.6-5.0) mmol/L Chloride 105.1 (98-107) mmol/L Carbon Dioxide 30 (22-30) mmol/L BUN 29 H (7-17) mg/dL Creatinine 0.2 L (0.7-1.2) mg/dL Glucose 149 H (65-100) mg/dL Calcium 8.1 L (8.4-10.2) mg/dL Total Bilirubin 0.50 (0.1-1.2) mg/dL AST 16 (5-40) units/L ALT 20 (7-56) units/L Alkaline Phosphatase 122 (35-129) units/L Total Protein 4.5 L (6.3-8.2) g/dL Albumin 1.6 L (3.9-5) g/dL
--- NOTE | 2018-07-05 18:09 | XRay Report ---
PROCEDURE: XR CHEST 1V AP TECHNIQUE: Chest radiograph single view. HISTORY: Right PICC line COMPARISONS: 07/05/2018 . FINDINGS: Heart: Normal. Mediastinum/Vessels: Normal. Lungs/Pleural space: There are patchy opacities in the right upper lung. No effusion or pneumothorax is seen. Bony thorax: No acute osseous abnormality. Life support devices: Right PICC line tip is at the cavoatrial junction. Nasogastric tube tip is in t he stomach. Endotracheal tube tip projects 2 cm superior to kristopher. IMPRESSION: Right PICC line tip is at the cavoatrial junction. This document is electronically signed by Ailyn Mcrae MD., Jul 05 2018 06:07:39 PM ET
[2018-07-05] MEDS ORDERED: CLINIMIX 4.25%-5% SOLUTION 2,000 ML IV SCH (20:00)
[2018-07-05] MEDS ORDERED: HEPARIN 10,000 UNITS/10 ML IV ONE (20:01)
--- NOTE | 2018-07-05 20:29 | Progress Note ---
Assessment and Plan Cultures: 06/26/2018 Blood culture no growth so far 07/03/2018 Blood culture pending 07/04/2018 Sputum no growth today Assessment: 58 y/o female with history of HTN, tobacco dependence admitted on 06/24/2018 due to a week history of severe abdominal pain, constipation and nausea. 1) Severe sepsis: still tachycardia and leukocytosis (leukomoid reaction). Initial Sepsis Etiology most likely peritonitis from diverticular perforation/abscess +/- enterocolitis +/- partial SBO +/- pneumonia. Leukomoid reaction likely due to bowel ischemia. 2) Acute fecal peritonitis from diverticular perforation/abscess: CT abdomen showed suspect diffuse moderate to severe enterocolitis with multiple air-fluid levels. Possible small bowel obstruction or high-grade incomplete obstruction. Transition point is not clearly identified but suspected in the pelvis. Small pockets of free air suggests perforation which could be related to the sigmoid colon which demonstrates diverticulosis/diverticulitis. Small amount of free fluid in the abdomen. Small to moderate fluid in the pelvis particularly around the sigmoid colon may represent developing abscesses. She was taken to the OR on 06/24/2018 for Exploratory laparotomy, Ezequiel's for perforated sigmoid diverticulitis with purulent peritonitis. No OR cultures available. CRP 25-->13. Repeat CT abdomen showed a peripherally enhancing portion thick fluid collection in the right anterior abdomen measuring up to 9.4 cm x 0.8 cm in thickness. There is a small amount of gas within this structure. This appears to represent an abscess. There is also a small amount of fluid in the cul-de-sac in the pelvis. Small bowel loops are mildly dilated and fluid filled which could represent a partial obstruction or diffuse ileus. 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 No pulsation in SMA, small bowel resection, partial colon resection, temporary abdominal closure with abthera vac. 3) Bilateral pneumonia: ?aspiration v/s HAP on cefepime and vancomycin. CTA showed scattered infiltrates identified in both lungs, this is most prominent in the right lower lung, slight bilateral effusions, no evidence of pulmonary arterial emboli . 4) Acute hypoxemic resp failure: on venti mask from pneumonia +/- COPD Recommendations: - follow-up repeat blood cultures - continue flagyl 500mg IV every 8 hours - continue fluconazole 400 mg - continue Cefepime and Vancomycin - monitor leukocytosis Guarded prognosis Will follow. Cira Villanueva MD Infectious Diseases [facility] ([facility]) M [phone] O [phone] Subjective Date of service: 07/05/18 Principal diagnosis: small bowel ischemiaperitonitis/penumonia Interval history: Went to the OR emergently last night due to bowel ischemia. No fever. Now intubated, sedated, no pressors. ROS limited Objective - Exam Narrative Exam: General appearance: sedated on the vent in NAD Eyes: anicteric sclerae, moist conjunctivae; no lid-lag; PERRLA HENT: Atraumatic; oropharynx +ETT Neck: Trachea midline; supple, no thyromegaly or lymphadenopathy Lungs: bilateral scattered rhonchi CV: RRR Abdomen: Soft, midline abdomen with abthera vac. Extremities: No peripheral edema or extremity lymphadenopathy Skin: Normal temperature, turgor and texture; no rash, ulcers or subcutaneous nodules Psych: no agitated. Neuro: sedated - Constitutional Vitals: Vital Signs Temp Pulse Resp BP Pulse Ox 99.6 F 118 H 22 124/70 95 07/05/18 20:00 07/05/18 20:00 07/05/18 20:00 07/05/18 20:00 07/05/18 20:00 Temperature -Last 24 Hours Temperature 99.6 F Temperature 98.8 F Temperature 98.9 F Temperature 98.4 F Temperature 98.9 F Temperature 99.3 F Temperature 97.3 F - Labs CBC & Chem 7: 07/05/18 03:14 07/05/18 03:14 Labs: Abnormal lab results 07/04/18 07/05/18 07/05/18 Range/Units 21:50 03:14 03:14 WBC 36.6 H (4.5-11.0) K/mm3 RBC 3.12 L (3.65-5.03) M/mm3 Hgb 9.1 L (10.1-14.3) gm/dl Hct 27.5 L (30.3-42.9) % Plt Count 529 H (140-440) K/mm3 Heparin Anti-Xa Level (0.3-0.7) U.I./ml POC ABG pH 7.469 H (7.35-7.45) POC ABG pCO2 45.8 H (35-45) POC ABG pO2 109 H (80-105) BUN 29 H (7-17) mg/dL Creatinine 0.2 L (0.7-1.2) mg/dL Glucose 149 H (65-100) mg/dL Calcium 8.1 L (8.4-10.2) mg/dL Total Protein 4.5 L (6.3-8.2) g/dL Albumin 1.6 L (3.9-5) g/dL Vancomycin Trough (5.0-20.0) ug/mL 07/05/18 07/05/18 07/05/18 Range/Units 03:14 04:45 10:57 WBC (4.5-11.0) K/mm3 RBC (3.65-5.03) M/mm3 Hgb (10.1-14.3) gm/dl Hct (30.3-42.9) % Plt Count (140-440) K/mm3 Heparin Anti-Xa Level 0.10 L < 0.10 L (0.3-0.7) U.I./ml POC ABG pH (7.35-7.45) POC ABG pCO2 50.6 H (35-45) POC ABG pO2 181 H (80-105) BUN (7-17) mg/dL Creatinine (0.7-1.2) mg/dL Glucose (65-100) mg/dL Calcium (8.4-10.2) mg/dL Total Protein (6.3-8.2) g/dL Albumin (3.9-5) g/dL Vancomycin Trough (5.0-20.0) ug/mL 07/05/18 07/05/18 Range/Units 10:57 18:27 WBC (4.5-11.0) K/mm3 RBC (3.65-5.03) M/mm3 Hgb (10.1-14.3) gm/dl Hct (30.3-42.9) % Plt Count (140-440) K/mm3 Heparin Anti-Xa Level < 0.10 L (0.3-0.7) U.I./ml POC ABG pH (7.35-7.45) POC ABG pCO2 (35-45) POC ABG pO2 (80-105) BUN (7-17) mg/dL Creatinine (0.7-1.2) mg/dL Glucose (65-100) mg/dL Calcium (8.4-10.2) mg/dL Total Protein (6.3-8.2) g/dL Albumin (3.9-5) g/dL Vancomycin Trough 38.9 H (5.0-20.0) ug/mL
[2018-07-05] MEDS: fentaNYL DRIP Premix 2,000 MCG/100 ML BAG IV SCH (20:54)
[2018-07-05] MEDS: HEPARIN/ 0.45% NACL-25,000 UNIT/500 ML 25,000 UNIT/500 ML BAG IV SCH (23:55)
--- NOTE | 2018-07-06 03:12 | XRay Report ---
PROCEDURE: XR CHEST 1V AP TECHNIQUE: Chest radiograph single view. HISTORY: follow up respiratory failure COMPARISONS: 07/05/2018 . FINDINGS: Heart: Normal. Mediastinum/Vessels: Normal. Lungs/Pleural space: Lungs are expanded. There are infiltrates in the right upper lung. There is no pleural effusion or pneumothorax.. Bony thorax: No acute osseous abnormality. Life support devices: There is an endotracheal tube in the distal trachea. There is NG tube in the st omach. There is a right-sided PICC line. The tip is in the superior vena cava.. IMPRESSION: Heart size is normal. Lungs are expanded. There are infiltrates in the right upper lung. There is no pleural effusion or pn eumothorax.. There is an endotracheal tube in the distal trachea. There is NG tube in the stomach. There is a right-sided PICC line. The tip is in the superior vena cava.. This document is electronically signed by Trae Mendoza MD., Jul 06 2018 03:10:36 AM ET
[2018-07-06] MEDS: FLAGYL 500 MG/100 ML 500 MG/100 ML BAG IV SCH ×3 (04:59→21:40)
[2018-07-06 05:11] LABS: Hematocrit 22.3 % (30.3-42.9); Hemoglobin 7.3 gm/dl (10.1-14.3); Mean Corpuscular HGB Conc 33 % (30-34); Mean Corpuscular Volume 89 fl (79-97); Platelet Count 541 K/mm3 (140-440); Red Cell Distribution Width 15.2 % (13.2-15.2)
[2018-07-06 05:35] LABS: Alanine Aminotransferase 16 units/L (7-56); Albumin 1.7 g/dL (3.9-5); BUN/Creatinine Ratio 135; Blood Urea Nitrogen 27 mg/dL (7-17); Calcium 7.7 mg/dL (8.4-10.2); Hemolysis Index 1
[2018-07-06] MEDS: PULMICORT IH SCH ×2 (07:56→19:35)
[2018-07-06] MEDS: DUONEB *Not for PRN Use IH SCH ×3 (07:56→20:33)
[2018-07-06] MEDS: BROVANA NEBU IH SCH ×2 (07:56→19:35)
[2018-07-06] MEDS ORDERED: KPHOS 30 MMOL in NACL 0.9% 500 ML 500 ML IV ONE (08:00)
--- NOTE | 2018-07-06 08:27 | Progress Note ---
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 No pulsation in SMA - exploratory laparotomy, small bowel resection, partial colon resection, temporary abdominal closure with abthera vac s/p acute bowel perforation, diverticulitis. Leukemoid reaction after the above.No fever Post op acute respiratory failure secondary to volume overload. On vent.ABG adequate COPD Recommendations IVF,monitor BP,I/O. Currently OK Antibiotics per ID. Check cultures Mechanical ventilation support, adjust FiO2 with goal of maintaining oximetry at or above 92% Keep PIP < 30 Sedation as needed for patient comfort, adjust to RASS -1 to - 3 Maintain extubation precautions Daily morning sedation vacation and initiate SBT if deemed appropriate DVT prophylaxis PPI prophylaxis Nutritional support, PICC line in place Schedule for surgery tomorrow. Reassess forSBT,vent wean after this. Discussed with patient and family in detail. Critical care time was 31 minutes of [id number] evaluation and coordination of care Subjective Date of service: 07/06/18 Principal diagnosis: small bowel ischemiaperitonitis/penumonia Interval history: Intubated .Awake .No pain.No events overnight Objective Vital Signs - 12hr 07/05/18 07/05/18 07/05/18 20:30 20:46 21:00 Temperature Pulse Rate 116 H 121 H 114 H Pulse Rate [ Bilateral] Respiratory 28 H 18 27 H Rate Respiratory Rate [Bilateral ] Blood Pressure 120/67 119/66 134/71 O2 Sat by Pulse 98 99 99 Oximetry 07/05/18 07/05/18 07/05/18 21:03 21:15 21:30 Temperature Pulse Rate 116 H 114 H 112 H Pulse Rate [ Bilateral] Respiratory 34 H 19 19 Rate Respiratory Rate [Bilateral ] Blood Pressure 124/70 126/63 126/67 O2 Sat by Pulse 99 99 Oximetry 07/05/18 07/05/18 07/05/18 21:45 22:00 22:15 Temperature Pulse Rate 113 H 113 H 111 H Pulse Rate [ Bilateral] Respiratory 16 20 17 Rate Respiratory Rate [Bilateral ] Blood Pressure 128/70 119/64 119/64 O2 Sat by Pulse 98 98 99 Oximetry 07/05/18 07/05/18 07/05/18 22:30 22:45 23:00 Temperature Pulse Rate 111 H 107 H 109 H Pulse Rate [ Bilateral] Respiratory 21 20 18 Rate Respiratory Rate [Bilateral ] Blood Pressure 114/64 108/62 117/56 O2 Sat by Pulse 97 98 99 Oximetry 07/05/18 07/05/18 07/05/18 23:15 23:30 23:31 Temperature Pulse Rate 110 H 108 H 110 H Pulse Rate [ Bilateral] Respiratory 18 17 Rate Respiratory Rate [Bilateral ] Blood Pressure 119/65 123/68 119/65 O2 Sat by Pulse 98 98 100 Oximetry 07/05/18 07/05/18 07/06/18 23:42 23:45 00:00 Temperature 98.1 F Pulse Rate 108 H 108 H Pulse Rate [ Bilateral] Respiratory 18 25 H Rate Respiratory Rate [Bilateral ] Blood Pressure 125/61 120/66 O2 Sat by Pulse 98 98 Oximetry 07/06/18 07/06/18 07/06/18 00:15 00:30 00:45 Temperature Pulse Rate 106 H 105 H 105 H Pulse Rate [ Bilateral] Respiratory 18 20 18 Rate Respiratory Rate [Bilateral ] Blood Pressure 109/64 113/64 114/63 O2 Sat by Pulse 98 98 99 Oximetry 07/06/18 07/06/18 07/06/18 01:00 01:15 01:30 Temperature Pulse Rate 104 H 106 H 101 H Pulse Rate [ Bilateral] Respiratory 18 17 18 Rate Respiratory Rate [Bilateral ] Blood Pressure 116/61 111/62 119/61 O2 Sat by Pulse 98 100 99 Oximetry 07/06/18 07/06/18 07/06/18 01:45 02:00 02:15 Temperature Pulse Rate 102 H 103 H 110 H Pulse Rate [ Bilateral] Respiratory 18 18 17 Rate Respiratory Rate [Bilateral ] Blood Pressure 115/61 112/62 119/66 O2 Sat by Pulse 99 98 Oximetry 07/06/18 07/06/18 07/06/18 02:30 02:45 03:00 Temperature Pulse Rate 104 H 99 H 104 H Pulse Rate [ Bilateral] Respiratory 17 18 18 Rate Respiratory Rate [Bilateral ] Blood Pressure 111/59 107/61 102/60 O2 Sat by Pulse 98 99 99 Oximetry 07/06/18 07/06/18 07/06/18 03:15 03:30 03:45 Temperature Pulse Rate 104 H 106 H 100 H Pulse Rate [ Bilateral] Respiratory 19 22 18 Rate Respiratory Rate [Bilateral ] Blood Pressure 108/66 112/59 109/65 O2 Sat by Pulse 98 98 99 Oximetry 07/06/18 07/06/18 07/06/18 04:00 04:15 04:30 Temperature 98.9 F Pulse Rate 103 H 101 H 105 H Pulse Rate [ Bilateral] Respiratory 17 18 25 H Rate Respiratory Rate [Bilateral ] Blood Pressure 109/61 112/60 106/67 O2 Sat by Pulse 98 99 98 Oximetry 07/06/18 07/06/18 07/06/18 04:40 04:45 05:01 Temperature Pulse Rate 104 H 103 H 115 H Pulse Rate [ Bilateral] Respiratory 17 17 Rate Respiratory Rate [Bilateral ] Blood Pressure 119/54 106/67 130/74 O2 Sat by Pulse 100 100 99 Oximetry 07/06/18 07/06/18 07/06/18 05:15 05:30 05:45 Temperature Pulse Rate 103 H 101 H 100 H Pulse Rate [ Bilateral] Respiratory 25 H 19 17 Rate Respiratory Rate [Bilateral ] Blood Pressure 125/59 116/63 122/65 O2 Sat by Pulse 98 99 99 Oximetry 07/06/18 07/06/18 07/06/18 06:00 06:15 06:30 Temperature Pulse Rate 105 H 102 H 100 H Pulse Rate [ Bilateral] Respiratory 18 20 19 Rate Respiratory Rate [Bilateral ] Blood Pressure 123/64 121/63 123/63 O2 Sat by Pulse 99 99 100 Oximetry 07/06/18 07/06/18 07/06/18 06:45 07:00 07:49 Temperature Pulse Rate 100 H 105 H 107 H Pulse Rate [ Bilateral] Respiratory 18 14 Rate Respiratory Rate [Bilateral ] Blood Pressure 118/61 124/61 119/68 O2 Sat by Pulse 99 98 100 Oximetry 07/06/18 07/06/18 07:56 08:25 Temperature Pulse Rate Pulse Rate [ 106 H 109 H Bilateral] Respiratory Rate Respiratory 18 18 Rate [Bilateral ] Blood Pressure O2 Sat by Pulse Oximetry Constitutional: no acute distress, alert Eyes: non-icteric ENT: oropharynx moist, other (ETT in position) Neck: supple, no JVD Effort: normal Ascultation: Bilateral: clear, diminished breath sounds Percussion: Bilateral: not dull Tactile fremitus: Bilateral: normal Cardiovascular: regular rate and rhythm Gastrointestinal: hypoactive bowel sounds, tender, other (mildly distended,open covered exploratory lab,colostomy) Integumentary: normal Extremities: no cyanosis, no edema Neurologic: normal mental status, non-focal exam Psychiatric: mood appropriate CBC and BMP: 07/06/18 05:00 07/06/18 05:00 ABG, PT/INR, D-dimer: ABG POC ABG pH 7.411 (7.35-7.45) 07/06/18 04:48 POC ABG pCO2 42.6 (35-45) 07/06/18 04:48 POC ABG pO2 118 (80-105) H 07/06/18 04:48 POC ABG HCO3 27.1 (22-26 mml/L) 07/06/18 04:48 POC ABG Total CO2 28 (23-27mmol/L) 07/06/18 04:48 POC ABG O2 Sat 99 07/06/18 04:48 PT/INR, D-dimer PT 18.7 Sec. (12.2-14.9) H 07/04/18 19:00 INR 1.46 (0.87-1.13) H 07/04/18 19:00 Abnormal lab findings: Abnormal Labs 06/24/18 06/24/18 06/24/18 11:18 11:19 11:19 WBC 19.0 H RBC Hgb Hct MCHC 35 H RDW Plt Count 457 H Seg Neuts % (Manual) 88.0 H Lymphocytes % (Manual) 2.0 L Seg Neutrophils # Man 16.7 H Lymphocytes # (Manual) 0.4 L Monocytes # (Manual) PT 15.9 H INR 1.19 H Heparin Anti-Xa Level POC ABG pH POC ABG pCO2 POC ABG pO2 Sodium 136 L Potassium 2.8 L* Chloride 96.7 L Carbon Dioxide BUN Creatinine 0.4 L Glucose 146 H POC Glucose Calcium Phosphorus Total Bilirubin 1.90 H Direct Bilirubin 1.5 H Alkaline Phosphatase 264 H C-Reactive Protein NT-Pro-B Natriuret Pep Total Protein Albumin 3.0 L Lipase 8 L Ur Specific [place] Vancomycin Trough Crossmatch 06/24/18 06/24/18 06/25/18 13:00 19:47 06:55 WBC 18.3 H RBC Hgb Hct MCHC 35 H RDW Plt Count 481 H Seg Neuts % (Manual) 88.0 H Lymphocytes % (Manual) 4.0 L Seg Neutrophils # Man 16.1 H Lymphocytes # (Manual) 0.7 L Monocytes # (Manual) PT INR Heparin Anti-Xa Level POC ABG pH POC ABG pCO2 POC ABG pO2 Sodium Potassium 3.5 L D Chloride Carbon Dioxide 21 L BUN Creatinine 0.3 L Glucose 166 H POC Glucose Calcium 7.4 L D Phosphorus Total Bilirubin Direct Bilirubin Alkaline Phosphatase C-Reactive Protein NT-Pro-B Natriuret Pep Total Protein Albumin Lipase Ur Specific [place] > 1.059 H Vancomycin Trough Crossmatch 06/25/18 06/26/18 06/26/18 06:55 11:54 11:54 WBC 19.9 H RBC 3.48 L Hgb Hct MCHC RDW Plt Count 583 H Seg Neuts % (Manual) Lymphocytes % (Manual) Seg Neutrophils # Man Lymphocytes # (Manual) Monocytes # (Manual) PT INR Heparin Anti-Xa Level POC ABG pH POC ABG pCO2 POC ABG pO2 Sodium 146 H Potassium 3.5 L Chloride 108.3 H 109.9 H Carbon Dioxide BUN Creatinine 0.4 L 0.3 L Glucose 159 H 153 H POC Glucose Calcium 7.7 L 8.2 L Phosphorus Total Bilirubin Direct Bilirubin Alkaline Phosphatase 152 H C-Reactive Protein NT-Pro-B Natriuret Pep Total Protein 5.3 L Albumin 2.1 L Lipase Ur Specific [place] Vancomycin Trough Crossmatch 06/26/18 06/26/18 06/27/18 14:12 20:37 02:04 WBC RBC Hgb Hct MCHC RDW Plt Count Seg Neuts % (Manual) Lymphocytes % (Manual) Seg Neutrophils # Man Lymphocytes # (Manual) Monocytes # (Manual) PT INR Heparin Anti-Xa Level POC ABG pH 7.471 H 7.458 H POC ABG pCO2 POC ABG pO2 74 L 70 L Sodium Potassium Chloride Carbon Dioxide BUN Creatinine Glucose POC Glucose Calcium Phosphorus Total Bilirubin Direct Bilirubin Alkaline Phosphatase C-Reactive Protein 25.70 H NT-Pro-B Natriuret Pep Total Protein Albumin Lipase Ur Specific [place] Vancomycin Trough Crossmatch 06/27/18 06/27/18 06/28/18 09:19 11:50 00:17 WBC 24.5 H 37.2 H RBC Hgb Hct MCHC RDW 15.4 H Plt Count 583 H 657 H Seg Neuts % (Manual) 98.0 H 88.5 H Lymphocytes % (Manual) 1.0 L 4.0 L Seg Neutrophils # Man 24.0 H 32.9 H Lymphocytes # (Manual) 0.2 L Monocytes # (Manual) 1.1 H PT INR Heparin Anti-Xa Level POC ABG pH POC ABG pCO2 POC ABG pO2 Sodium 146 H Potassium 3.5 L Chloride Carbon Dioxide BUN Creatinine 0.3 L Glucose 176 H POC Glucose Calcium 8.2 L Phosphorus Total Bilirubin Direct Bilirubin Alkaline Phosphatase C-Reactive Protein NT-Pro-B Natriuret Pep Total Protein Albumin Lipase Ur Specific [place] Vancomycin Trough Crossmatch 06/28/18 06/28/18 06/28/18 09:56 09:56 09:56 WBC 37.8 H RBC Hgb Hct MCHC RDW 15.3 H Plt Count 634 H Seg Neuts % (Manual) Lymphocytes % (Manual) Seg Neutrophils # Man Lymphocytes # (Manual) Monocytes # (Manual) PT INR Heparin Anti-Xa Level POC ABG pH POC ABG pCO2 POC ABG pO2 Sodium 146 H Potassium 2.8 L* Chloride Carbon Dioxide 31 H BUN Creatinine 0.3 L Glucose 142 H POC Glucose Calcium 8.2 L Phosphorus Total Bilirubin Direct Bilirubin Alkaline Phosphatase C-Reactive Protein NT-Pro-B Natriuret Pep 1572 H Total Protein Albumin Lipase Ur Specific [place] Vancomycin Trough Crossmatch 06/28/18 06/28/18 06/29/18 13:19 21:24 00:57 WBC 28.9 H RBC Hgb Hct MCHC RDW Plt Count 681 H Seg Neuts % (Manual) 93.0 H Lymphocytes % (Manual) 1.5 L Seg Neutrophils # Man 26.9 H Lymphocytes # (Manual) 0.4 L Monocytes # (Manual) PT INR Heparin Anti-Xa Level POC ABG pH 7.470 H POC ABG pCO2 53.0 H POC ABG pO2 120 H Sodium Potassium 3.0 L Chloride Carbon Dioxide 33 H BUN Creatinine 0.3 L Glucose 116 H POC Glucose Calcium 8.2 L Phosphorus Total Bilirubin Direct Bilirubin Alkaline Phosphatase C-Reactive Protein NT-Pro-B Natriuret Pep Total Protein Albumin Lipase Ur Specific [place] Vancomycin Trough Crossmatch 06/29/18 06/29/18 06/29/18 05:58 05:58 12:21 WBC 25.8 H RBC Hgb Hct MCHC RDW Plt Count 661 H Seg Neuts % (Manual) Lymphocytes % (Manual) Seg Neutrophils # Man Lymphocytes # (Manual) Monocytes # (Manual) PT INR Heparin Anti-Xa Level POC ABG pH POC ABG pCO2 POC ABG pO2 Sodium Potassium 2.7 L* Chloride Carbon Dioxide 35 H BUN Creatinine 0.3 L Glucose 132 H POC Glucose 130 H Calcium 8.2 L Phosphorus Total Bilirubin Direct Bilirubin Alkaline Phosphatase C-Reactive Protein NT-Pro-B Natriuret Pep Total Protein Albumin Lipase Ur Specific [place] Vancomycin Trough Crossmatch 06/29/18 06/29/18 06/30/18 17:53 18:52 05:02 WBC RBC Hgb Hct MCHC RDW Plt Count Seg Neuts % (Manual) Lymphocytes % (Manual) Seg Neutrophils # Man Lymphocytes # (Manual) Monocytes # (Manual) PT INR Heparin Anti-Xa Level POC ABG pH POC ABG pCO2 POC ABG pO2 Sodium Potassium 3.1 L Chloride Carbon Dioxide 33 H BUN Creatinine 0.3 L Glucose 129 H POC Glucose 109 H 106 H Calcium 8.2 L Phosphorus Total Bilirubin Direct Bilirubin Alkaline Phosphatase C-Reactive Protein NT-Pro-B Natriuret Pep Total Protein Albumin Lipase Ur Specific [place] Vancomycin Trough Crossmatch 06/30/18 06/30/18 06/30/18 07:19 07:19 16:17 WBC 23.1 H RBC Hgb Hct MCHC RDW Plt Count 652 H Seg Neuts % (Manual) Lymphocytes % (Manual) Seg Neutrophils # Man Lymphocytes # (Manual) Monocytes # (Manual) PT INR Heparin Anti-Xa Level POC ABG pH POC ABG pCO2 POC ABG pO2 Sodium Potassium 2.8 L* Chloride Carbon Dioxide BUN Creatinine 0.3 L Glucose 109 H POC Glucose Calcium 8.2 L Phosphorus Total Bilirubin Direct Bilirubin Alkaline Phosphatase C-Reactive Protein NT-Pro-B Natriuret Pep Total Protein Albumin Lipase Ur Specific [place] Vancomycin Trough < 4.0 L Crossmatch 06/30/18 06/30/18 06/30/18 16:17 16:17 19:00 WBC RBC Hgb Hct MCHC RDW Plt Count Seg Neuts % (Manual) Lymphocytes % (Manual) Seg Neutrophils # Man Lymphocytes # (Manual) Monocytes # (Manual) PT INR Heparin Anti-Xa Level POC ABG pH POC ABG pCO2 POC ABG pO2 Sodium Potassium 3.0 L 3.2 L Chloride Carbon Dioxide BUN Creatinine 0.3 L Glucose 138 H POC Glucose Calcium Phosphorus 2.30 L D Total Bilirubin Direct Bilirubin Alkaline Phosphatase C-Reactive Protein NT-Pro-B Natriuret Pep Total Protein Albumin Lipase Ur Specific [place] Vancomycin Trough Crossmatch 07/01/18 07/01/18 07/01/18 04:04 04:04 12:21 WBC 26.3 H RBC Hgb Hct MCHC RDW Plt Count Seg Neuts % (Manual) Lymphocytes % (Manual) Seg Neutrophils # Man Lymphocytes # (Manual) Monocytes # (Manual) PT INR Heparin Anti-Xa Level POC ABG pH POC ABG pCO2 POC ABG pO2 Sodium 147 H Potassium Chloride Carbon Dioxide BUN 22 H Creatinine 0.3 L Glucose 126 H POC Glucose 190 H Calcium Phosphorus Total Bilirubin Direct Bilirubin Alkaline Phosphatase C-Reactive Protein NT-Pro-B Natriuret Pep Total Protein Albumin Lipase Ur Specific [place] Vancomycin Trough Crossmatch 07/02/18 07/02/18 07/03/18 04:17 04:17 09:58 WBC 40.2 H* 48.6 H* RBC 3.51 L Hgb Hct MCHC RDW Plt Count Seg Neuts % (Manual) Lymphocytes % (Manual) Seg Neutrophils # Man Lymphocytes # (Manual) Monocytes # (Manual) PT INR Heparin Anti-Xa Level POC ABG pH POC ABG pCO2 POC ABG pO2 Sodium Potassium 3.4 L Chloride Carbon Dioxide 32 H BUN 30 H Creatinine 0.3 L Glucose 166 H POC Glucose Calcium Phosphorus Total Bilirubin Direct Bilirubin Alkaline Phosphatase C-Reactive Protein NT-Pro-B Natriuret Pep Total Protein Albumin Lipase Ur Specific [place] Vancomycin Trough Crossmatch 07/03/18 07/03/18 07/04/18 09:58 11:07 05:37 WBC 48.5 H* RBC 3.53 L Hgb Hct MCHC RDW Plt Count 477 H Seg Neuts % (Manual) Lymphocytes % (Manual) Seg Neutrophils # Man Lymphocytes # (Manual) Monocytes # (Manual) PT INR Heparin Anti-Xa Level POC ABG pH POC ABG pCO2 POC ABG pO2 Sodium Potassium 3.5 L Chloride Carbon Dioxide 31 H BUN 33 H Creatinine 0.3 L Glucose 162 H POC Glucose Calcium Phosphorus Total Bilirubin Direct Bilirubin Alkaline Phosphatase C-Reactive Protein 13.20 H NT-Pro-B Natriuret Pep Total Protein Albumin Lipase Ur Specific [place] Vancomycin Trough Crossmatch 07/04/18 07/04/18 07/04/18 05:37 17:54 19:00 WBC RBC Hgb 9.5 L Hct 28.7 L MCHC RDW Plt Count 512 H Seg Neuts % (Manual) Lymphocytes % (Manual) Seg Neutrophils # Man Lymphocytes # (Manual) Monocytes # (Manual) PT INR Heparin Anti-Xa Level POC ABG pH POC ABG pCO2 POC ABG pO2 Sodium Potassium 3.4 L Chloride Carbon Dioxide 32 H BUN 30 H Creatinine 0.3 L Glucose 146 H POC Glucose Calcium Phosphorus Total Bilirubin Direct Bilirubin Alkaline Phosphatase C-Reactive Protein NT-Pro-B Natriuret Pep Total Protein Albumin Lipase Ur Specific [place] Vancomycin Trough Crossmatch See Detail 07/04/18 07/04/18 07/05/18 19:00 21:50 03:14 WBC 36.6 H RBC 3.12 L Hgb 9.1 L Hct 27.5 L MCHC RDW Plt Count 529 H Seg Neuts % (Manual) Lymphocytes % (Manual) Seg Neutrophils # Man Lymphocytes # (Manual) Monocytes # (Manual) PT 18.7 H INR 1.46 H Heparin Anti-Xa Level POC ABG pH 7.469 H POC ABG pCO2 45.8 H POC ABG pO2 109 H Sodium Potassium Chloride Carbon Dioxide BUN Creatinine Glucose POC Glucose Calcium Phosphorus Total Bilirubin Direct Bilirubin Alkaline Phosphatase C-Reactive Protein NT-Pro-B Natriuret Pep Total Protein Albumin Lipase Ur Specific [place] Vancomycin Trough Crossmatch 07/05/18 07/05/18 07/05/18 03:14 03:14 04:45 WBC RBC Hgb Hct MCHC RDW Plt Count Seg Neuts % (Manual) Lymphocytes % (Manual) Seg Neutrophils # Man Lymphocytes # (Manual) Monocytes # (Manual) PT INR Heparin Anti-Xa Level 0.10 L POC ABG pH POC ABG pCO2 50.6 H POC ABG pO2 181 H Sodium Potassium Chloride Carbon Dioxide BUN 29 H Creatinine 0.2 L Glucose 149 H POC Glucose Calcium 8.1 L Phosphorus Total Bilirubin Direct Bilirubin Alkaline Phosphatase C-Reactive Protein NT-Pro-B Natriuret Pep Total Protein 4.5 L Albumin 1.6 L Lipase Ur Specific [place] Vancomycin Trough Crossmatch 07/05/18 07/05/18 07/05/18 10:57 10:57 18:27 WBC RBC Hgb Hct MCHC RDW Plt Count Seg Neuts % (Manual) Lymphocytes % (Manual) Seg Neutrophils # Man Lymphocytes # (Manual) Monocytes # (Manual) PT INR Heparin Anti-Xa Level < 0.10 L < 0.10 L POC ABG pH POC ABG pCO2 POC ABG pO2 Sodium Potassium Chloride Carbon Dioxide BUN Creatinine Glucose POC Glucose Calcium Phosphorus Total Bilirubin Direct Bilirubin Alkaline Phosphatase C-Reactive Protein NT-Pro-B Natriuret Pep Total Protein Albumin Lipase Ur Specific [place] Vancomycin Trough 38.9 H Crossmatch 07/06/18 07/06/18 07/06/18 02:00 04:48 05:00 WBC 23.1 H RBC 2.50 L Hgb 7.3 L Hct 22.3 L MCHC RDW Plt Count 541 H Seg Neuts % (Manual) Lymphocytes % (Manual) Seg Neutrophils # Man Lymphocytes # (Manual) Monocytes # (Manual) PT INR Heparin Anti-Xa Level 0.23 L POC ABG pH POC ABG pCO2 POC ABG pO2 118 H Sodium Potassium Chloride Carbon Dioxide BUN Creatinine Glucose POC Glucose Calcium Phosphorus Total Bilirubin Direct Bilirubin Alkaline Phosphatase C-Reactive Protein NT-Pro-B Natriuret Pep Total Protein Albumin Lipase Ur Specific [place] Vancomycin Trough Crossmatch 07/06/18 05:00 WBC RBC Hgb Hct MCHC RDW Plt Count Seg Neuts % (Manual) Lymphocytes % (Manual) Seg Neutrophils # Man Lymphocytes # (Manual) Monocytes # (Manual) PT INR Heparin Anti-Xa Level POC ABG pH POC ABG pCO2 POC ABG pO2 Sodium Potassium Chloride 109.8 H Carbon Dioxide BUN 27 H Creatinine 0.2 L Glucose 157 H POC Glucose Calcium 7.7 L Phosphorus 1.60 L Total Bilirubin Direct Bilirubin Alkaline Phosphatase C-Reactive Protein NT-Pro-B Natriuret Pep Total Protein 4.5 L Albumin 1.7 L Lipase Ur Specific [place] Vancomycin Trough Crossmatch Chest x-ray: report reviewed, image reviewed
--- NOTE | 2018-07-06 09:06 | Progress Note ---
Assessment and Plan 58 yo F s/p Exploratory laparotomy, small bowel resection, partial colon resection, temporary abdominal closure with abthera vac 07/04/18, POD 2 and Exploratory laparotomy, Ezequiel's procedure 06/24/18 Plan: 1. continue vent, do not extubate 2. NPO 3. IVF 4. continue fent and propofol gtt 5. abthera vac to -125mmHg suction, do not remove 6. NGT to LIWS 7. continue heparin gtt 8. 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 IV abx - white count improving 10. will plan to return to OR on Friday 07/07 to reevaluate remaining bowel. Hold hepgtt 6 hours prior to surgery. Will try and reach sister today to obtain consent. Thank you, please call with questions Subjective Date of service: 07/06/18 Narrative: Pt seen and examined. Awake on vent. Denies pain. Objective Vital Signs - 12hr 07/05/18 07/05/18 07/05/18 21:15 21:30 21:45 Temperature Pulse Rate 114 H 112 H 113 H Pulse Rate [ Bilateral] Respiratory 19 19 16 Rate Respiratory Rate [Bilateral ] Blood Pressure 126/63 126/67 128/70 O2 Sat by Pulse 99 98 Oximetry 07/05/18 07/05/18 07/05/18 22:00 22:15 22:30 Temperature Pulse Rate 113 H 111 H 111 H Pulse Rate [ Bilateral] Respiratory 20 17 21 Rate Respiratory Rate [Bilateral ] Blood Pressure 119/64 119/64 114/64 O2 Sat by Pulse 98 99 97 Oximetry 07/05/18 07/05/18 07/05/18 22:45 23:00 23:15 Temperature Pulse Rate 107 H 109 H 110 H Pulse Rate [ Bilateral] Respiratory 20 18 18 Rate Respiratory Rate [Bilateral ] Blood Pressure 108/62 117/56 119/65 O2 Sat by Pulse 98 99 98 Oximetry 07/05/18 07/05/18 07/05/18 23:30 23:31 23:42 Temperature 98.1 F Pulse Rate 108 H 110 H Pulse Rate [ Bilateral] Respiratory 17 Rate Respiratory Rate [Bilateral ] Blood Pressure 123/68 119/65 O2 Sat by Pulse 98 100 Oximetry 07/05/18 07/06/18 07/06/18 23:45 00:00 00:15 Temperature Pulse Rate 108 H 108 H 106 H Pulse Rate [ Bilateral] Respiratory 18 25 H 18 Rate Respiratory Rate [Bilateral ] Blood Pressure 125/61 120/66 109/64 O2 Sat by Pulse 98 98 98 Oximetry 07/06/18 07/06/18 07/06/18 00:30 00:45 01:00 Temperature Pulse Rate 105 H 105 H 104 H Pulse Rate [ Bilateral] Respiratory 20 18 18 Rate Respiratory Rate [Bilateral ] Blood Pressure 113/64 114/63 116/61 O2 Sat by Pulse 98 99 98 Oximetry 07/06/18 07/06/18 07/06/18 01:15 01:30 01:45 Temperature Pulse Rate 106 H 101 H 102 H Pulse Rate [ Bilateral] Respiratory 17 18 18 Rate Respiratory Rate [Bilateral ] Blood Pressure 111/62 119/61 115/61 O2 Sat by Pulse 100 99 99 Oximetry 07/06/18 07/06/18 07/06/18 02:00 02:15 02:30 Temperature Pulse Rate 103 H 110 H 104 H Pulse Rate [ Bilateral] Respiratory 18 17 17 Rate Respiratory Rate [Bilateral ] Blood Pressure 112/62 119/66 111/59 O2 Sat by Pulse 98 98 Oximetry 07/06/18 07/06/18 07/06/18 02:45 03:00 03:15 Temperature Pulse Rate 99 H 104 H 104 H Pulse Rate [ Bilateral] Respiratory 18 18 19 Rate Respiratory Rate [Bilateral ] Blood Pressure 107/61 102/60 108/66 O2 Sat by Pulse 99 99 98 Oximetry 07/06/18 07/06/18 07/06/18 03:30 03:45 04:00 Temperature 98.9 F Pulse Rate 106 H 100 H 103 H Pulse Rate [ Bilateral] Respiratory 22 18 17 Rate Respiratory Rate [Bilateral ] Blood Pressure 112/59 109/65 109/61 O2 Sat by Pulse 98 99 98 Oximetry 07/06/18 07/06/18 07/06/18 04:15 04:30 04:40 Temperature Pulse Rate 101 H 105 H 104 H Pulse Rate [ Bilateral] Respiratory 18 25 H Rate Respiratory Rate [Bilateral ] Blood Pressure 112/60 106/67 119/54 O2 Sat by Pulse 99 98 100 Oximetry 07/06/18 07/06/18 07/06/18 04:45 05:01 05:15 Temperature Pulse Rate 103 H 115 H 103 H Pulse Rate [ Bilateral] Respiratory 17 17 25 H Rate Respiratory Rate [Bilateral ] Blood Pressure 106/67 130/74 125/59 O2 Sat by Pulse 100 99 98 Oximetry 07/06/18 07/06/18 07/06/18 05:30 05:45 06:00 Temperature Pulse Rate 101 H 100 H 105 H Pulse Rate [ Bilateral] Respiratory 19 17 18 Rate Respiratory Rate [Bilateral ] Blood Pressure 116/63 122/65 123/64 O2 Sat by Pulse 99 99 99 Oximetry 07/06/18 07/06/18 07/06/18 06:15 06:30 06:45 Temperature Pulse Rate 102 H 100 H 100 H Pulse Rate [ Bilateral] Respiratory 20 19 18 Rate Respiratory Rate [Bilateral ] Blood Pressure 121/63 123/63 118/61 O2 Sat by Pulse 99 100 99 Oximetry 07/06/18 07/06/18 07/06/18 07:00 07:49 07:56 Temperature Pulse Rate 105 H 107 H Pulse Rate [ 106 H Bilateral] Respiratory 14 Rate Respiratory 18 Rate [Bilateral ] Blood Pressure 124/61 119/68 O2 Sat by Pulse 98 100 Oximetry 07/06/18 07/06/18 08:00 08:25 Temperature 97.6 F Pulse Rate Pulse Rate [ 109 H Bilateral] Respiratory Rate Respiratory 18 Rate [Bilateral ] Blood Pressure O2 Sat by Pulse Oximetry - General physical appearance Narrative Exam: Gen; Awake on vent. NAD ENT: OGT bilious. ETT in place CV: S1, S2+ Resp: on vent, no wheezing Abd: soft, NT, ND. abthera vac in place with good seal - serous drainage, clear Ext: no c/c/e : pizano - Labs 07/06/18 05:00 07/06/18 05:00 Diabetes panel 07/06/18 Range/Units 05:00 Sodium 143 (137-145) mmol/L Potassium 3.7 (3.6-5.0) mmol/L Chloride 109.8 H (98-107) mmol/L Carbon Dioxide 30 (22-30) mmol/L BUN 27 H (7-17) mg/dL Creatinine 0.2 L (0.7-1.2) mg/dL Glucose 157 H (65-100) mg/dL Calcium 7.7 L (8.4-10.2) mg/dL AST 21 (5-40) units/L ALT 16 (7-56) units/L Alkaline Phosphatase 99 (35-129) units/L Total Protein 4.5 L (6.3-8.2) g/dL Albumin 1.7 L (3.9-5) g/dL Calcium panel 07/06/18 Range/Units 05:00 Calcium 7.7 L (8.4-10.2) mg/dL Phosphorus 1.60 L (2.5-4.5) mg/dL Albumin 1.7 L (3.9-5) g/dL Pituitary panel 07/06/18 Range/Units 05:00 Sodium 143 (137-145) mmol/L Potassium 3.7 (3.6-5.0) mmol/L Chloride 109.8 H (98-107) mmol/L Carbon Dioxide 30 (22-30) mmol/L BUN 27 H (7-17) mg/dL Creatinine 0.2 L (0.7-1.2) mg/dL Glucose 157 H (65-100) mg/dL Calcium 7.7 L (8.4-10.2) mg/dL Adrenal panel 07/06/18 Range/Units 05:00 Sodium 143 (137-145) mmol/L Potassium 3.7 (3.6-5.0) mmol/L Chloride 109.8 H (98-107) mmol/L Carbon Dioxide 30 (22-30) mmol/L BUN 27 H (7-17) mg/dL Creatinine 0.2 L (0.7-1.2) mg/dL Glucose 157 H (65-100) mg/dL Calcium 7.7 L (8.4-10.2) mg/dL Total Bilirubin 0.30 (0.1-1.2) mg/dL AST 21 (5-40) units/L ALT 16 (7-56) units/L Alkaline Phosphatase 99 (35-129) units/L Total Protein 4.5 L (6.3-8.2) g/dL Albumin 1.7 L (3.9-5) g/dL
[2018-07-06] MEDS: PROTONIX IV SCH ×2 (09:15→21:40)
[2018-07-06] MEDS: SODIUM CHLORIDE FLUSH SYRINGE 10 ML IV SCH ×2 (09:15→21:41)
[2018-07-06] MEDS: MAXIPIME/NS 2 GM/100 ML 2 GM/100 ML BAG IV SCH ×2 (09:16→21:40)
[2018-07-06] MEDS: HABITROL TD SCH (09:16)
--- NOTE | 2018-07-06 10:03 | Progress Note ---
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 Acute mesenteric ischemic event is being managed by general surgery with appropriate bowel resections as the bowel was already and the SMA and SMV thrombus and the time course involved made thrombectomy not beneficial. Distal aortic thrombus. The patient has preserved pulses to the lower ex tremities and has no signs of ischemia. Given patient's critical status, recommend treatment with anticoagulation. Although the etiology of the thromboembolic event is unclear, suspect cardiac etiology of thrombus given its size. Given the unclear cause, patient will likely need anticoagulation for life. Subjective Date of service: 07/06/18 Principal diagnosis: small bowel ischemiaperitonitis/penumonia Interval history: Intubated. Girlfriend at bedside. Palpable pedal pulses and femoral pulses. Can move toes, feet warm, and sensation intact. Objective - Constitutional Vitals: Vital Signs - 12hr 07/05/18 07/05/18 07/05/18 22:00 22:15 22:30 Temperature Pulse Rate 113 H 111 H 111 H Pulse Rate [ Bilateral] Respiratory 20 17 21 Rate Respiratory Rate [Bilateral ] Blood Pressure 119/64 119/64 114/64 O2 Sat by Pulse 98 99 97 Oximetry 07/05/18 07/05/18 07/05/18 22:45 23:00 23:15 Temperature Pulse Rate 107 H 109 H 110 H Pulse Rate [ Bilateral] Respiratory 20 18 18 Rate Respiratory Rate [Bilateral ] Blood Pressure 108/62 117/56 119/65 O2 Sat by Pulse 98 99 98 Oximetry 07/05/18 07/05/18 07/05/18 23:30 23:31 23:42 Temperature 98.1 F Pulse Rate 108 H 110 H Pulse Rate [ Bilateral] Respiratory 17 Rate Respiratory Rate [Bilateral ] Blood Pressure 123/68 119/65 O2 Sat by Pulse 98 100 Oximetry 07/05/18 07/06/18 07/06/18 23:45 00:00 00:15 Temperature Pulse Rate 108 H 108 H 106 H Pulse Rate [ Bilateral] Respiratory 18 25 H 18 Rate Respiratory Rate [Bilateral ] Blood Pressure 125/61 120/66 109/64 O2 Sat by Pulse 98 98 98 Oximetry 07/06/18 07/06/18 07/06/18 00:30 00:45 01:00 Temperature Pulse Rate 105 H 105 H 104 H Pulse Rate [ Bilateral] Respiratory 20 18 18 Rate Respiratory Rate [Bilateral ] Blood Pressure 113/64 114/63 116/61 O2 Sat by Pulse 98 99 98 Oximetry 07/06/18 07/06/18 07/06/18 01:15 01:30 01:45 Temperature Pulse Rate 106 H 101 H 102 H Pulse Rate [ Bilateral] Respiratory 17 18 18 Rate Respiratory Rate [Bilateral ] Blood Pressure 111/62 119/61 115/61 O2 Sat by Pulse 100 99 99 Oximetry 07/06/18 07/06/18 07/06/18 02:00 02:15 02:30 Temperature Pulse Rate 103 H 110 H 104 H Pulse Rate [ Bilateral] Respiratory 18 17 17 Rate Respiratory Rate [Bilateral ] Blood Pressure 112/62 119/66 111/59 O2 Sat by Pulse 98 98 Oximetry 07/06/18 07/06/18 07/06/18 02:45 03:00 03:15 Temperature Pulse Rate 99 H 104 H 104 H Pulse Rate [ Bilateral] Respiratory 18 18 19 Rate Respiratory Rate [Bilateral ] Blood Pressure 107/61 102/60 108/66 O2 Sat by Pulse 99 99 98 Oximetry 07/06/18 07/06/18 07/06/18 03:30 03:45 04:00 Temperature 98.9 F Pulse Rate 106 H 100 H 103 H Pulse Rate [ Bilateral] Respiratory 22 18 17 Rate Respiratory Rate [Bilateral ] Blood Pressure 112/59 109/65 109/61 O2 Sat by Pulse 98 99 98 Oximetry 07/06/18 07/06/18 07/06/18 04:15 04:30 04:40 Temperature Pulse Rate 101 H 105 H 104 H Pulse Rate [ Bilateral] Respiratory 18 25 H Rate Respiratory Rate [Bilateral ] Blood Pressure 112/60 106/67 119/54 O2 Sat by Pulse 99 98 100 Oximetry 07/06/18 07/06/18 07/06/18 04:45 05:01 05:15 Temperature Pulse Rate 103 H 115 H 103 H Pulse Rate [ Bilateral] Respiratory 17 17 25 H Rate Respiratory Rate [Bilateral ] Blood Pressure 106/67 130/74 125/59 O2 Sat by Pulse 100 99 98 Oximetry 07/06/18 07/06/18 07/06/18 05:30 05:45 06:00 Temperature Pulse Rate 101 H 100 H 105 H Pulse Rate [ Bilateral] Respiratory 19 17 18 Rate Respiratory Rate [Bilateral ] Blood Pressure 116/63 122/65 123/64 O2 Sat by Pulse 99 99 99 Oximetry 07/06/18 07/06/18 07/06/18 06:15 06:30 06:45 Temperature Pulse Rate 102 H 100 H 100 H Pulse Rate [ Bilateral] Respiratory 20 19 18 Rate Respiratory Rate [Bilateral ] Blood Pressure 121/63 123/63 118/61 O2 Sat by Pulse 99 100 99 Oximetry 07/06/18 07/06/18 07/06/18 07:00 07:49 07:56 Temperature Pulse Rate 105 H 107 H Pulse Rate [ 106 H Bilateral] Respiratory 14 Rate Respiratory 18 Rate [Bilateral ] Blood Pressure 124/61 119/68 O2 Sat by Pulse 98 100 Oximetry 07/06/18 07/06/18 08:00 08:25 Temperature 97.6 F Pulse Rate Pulse Rate [ 109 H Bilateral] Respiratory Rate Respiratory 18 Rate [Bilateral ] Blood Pressure O2 Sat by Pulse Oximetry General appearance: Present: other (intubated but able to nod head and shake head to commands) - EENT Eyes: EOM intact ENT: hearing intact - Respiratory Respiratory effort: other (intubated) Extremities: no ischemia, pulses intact, normal temperature, normal color - Psychiatric Psychiatric: cooperative - Labs CBC & Chem 7: 07/06/18 05:00 07/06/18 05:00 Labs: Abnormal lab results 07/05/18 07/05/18 07/05/18 Range/Units 10:57 10:57 18:27 WBC (4.5-11.0) K/mm3 RBC (3.65-5.03) M/mm3 Hgb (10.1-14.3) gm/dl Hct (30.3-42.9) % Plt Count (140-440) K/mm3 Heparin Anti-Xa Level < 0.10 L < 0.10 L (0.3-0.7) U.I./ml POC ABG pO2 (80-105) Chloride (98-107) mmol/L BUN (7-17) mg/dL Creatinine (0.7-1.2) mg/dL Glucose (65-100) mg/dL Calcium (8.4-10.2) mg/dL Phosphorus (2.5-4.5) mg/dL Total Protein (6.3-8.2) g/dL Albumin (3.9-5) g/dL Vancomycin Trough 38.9 H (5.0-20.0) ug/mL 07/06/18 07/06/18 07/06/18 Range/Units 02:00 04:48 05:00 WBC 23.1 H (4.5-11.0) K/mm3 RBC 2.50 L (3.65-5.03) M/mm3 Hgb 7.3 L (10.1-14.3) gm/dl Hct 22.3 L (30.3-42.9) % Plt Count 541 H (140-440) K/mm3 Heparin Anti-Xa Level 0.23 L (0.3-0.7) U.I./ml POC ABG pO2 118 H (80-105) Chloride (98-107) mmol/L BUN (7-17) mg/dL Creatinine (0.7-1.2) mg/dL Glucose (65-100) mg/dL Calcium (8.4-10.2) mg/dL Phosphorus (2.5-4.5) mg/dL Total Protein (6.3-8.2) g/dL Albumin (3.9-5) g/dL Vancomycin Trough (5.0-20.0) ug/mL 07/06/18 Range/Units 05:00 WBC (4.5-11.0) K/mm3 RBC (3.65-5.03) M/mm3 Hgb (10.1-14.3) gm/dl Hct (30.3-42.9) % Plt Count (140-440) K/mm3 Heparin Anti-Xa Level (0.3-0.7) U.I./ml POC ABG pO2 (80-105) Chloride 109.8 H (98-107) mmol/L BUN 27 H (7-17) mg/dL Creatinine 0.2 L (0.7-1.2) mg/dL Glucose 157 H (65-100) mg/dL Calcium 7.7 L (8.4-10.2) mg/dL Phosphorus 1.60 L (2.5-4.5) mg/dL Total Protein 4.5 L (6.3-8.2) g/dL Albumin 1.7 L (3.9-5) g/dL Vancomycin Trough (5.0-20.0) ug/mL Medications & Allergies - Medications Allergies/Adverse Reactions: Allergies No Known Allergies Allergy (Unverified 06/24/18 10:41) Home Medications: Home Medications Medication Instructions Recorded Confirmed Last Taken Type No Known Home Medications [No 06/27/18 06/27/18 Unknown History Reported Home Medications] Active Medications: Generic Name Dose Route Start Last Admin Trade Name Freq PRN Reason Stop Dose Admin Albuterol 2.5 mg 07/02/18 07:44 Proventil IH Q4HRT PRN Shortness Of Breath Albuterol/Ipratropium 1 ampul 07/02/18 14:00 07/06/18 07:56 Duoneb *Not For Prn Use* IH 1 ampul TIDRT MAURICIO Administration Arformoterol Tartrate 15 mcg 07/02/18 20:00 07/06/18 07:56 Brovana Nebu IH 15 mcg Q12HRT MAURICIO Administration Budesonide 0.5 mg 07/02/18 20:00 07/06/18 07:56 Pulmicort IH 0.5 mg Q12HRT MAURICIO Administration Fentanyl 25 mcg 06/30/18 14:19 Sublimaze IV Q2H PRN Pain, Moderate (4-6) Hydrophilic Ointment 1 applic 07/04/18 18:23 Vaseline Lip Therapy TP Q2HR PRN Dry Lips Metronidazole 500 mg in 100 mls @ 100 mls/hr 06/24/18 22:00 07/06/18 04:59 Flagyl 500 Mg/100 Ml IV 100 mls/hr Q8H MAURICIO Administration Protocol Fluconazole 200 mls @ 100 mls/hr 06/26/18 14:00 07/05/18 12:08 Diflucan IV Infused Q24HR MAURICIO Infusion Protocol Cefepime HCl 2 gm in 100 mls @ 200 mls/hr 06/27/18 14:00 07/06/18 09:16 Maxipime/Ns 2 Gm/100 Ml IV 200 mls/hr Q12HR MAURICIO Administration Protocol Fentanyl Citrate 2,000 mcg in 100 mls @ 2.605 mls/hr 07/04/18 19:00 07/05/18 20:54 Fentanyl Drip Premix IV 2 mcg/kg/hr TITR MAURICIO 5.21 mls/hr Administration Protocol 1 MCG/KG/HR Propofol 1,000 mg in 100 mls @ 1.563 mls/hr 07/04/18 19:00 07/04/18 20:30 Diprivan 10 Mg/Ml IV 10 mcg/kg/min TITR MAURICIO 3.126 mls/hr Titration Protocol 5 MCG/KG/MIN Heparin Sodium/Sodium Chloride 25,000 unit in 500 mls @ 15 mls/hr 07/04/18 19:00 07/06/18 03:32 Heparin/ 0.45% Nacl-25,000 Unit/500 Ml IV 07/06/18 23:45 1,200 units/hr TITR MAURICIO 24 mls/hr Titration Protocol 750 UNITS/HR Amino Acids 2,000 mls @ 75 mls/hr 07/05/18 20:00 07/05/18 20:28 Clinimix 4.25%-5% Solution IV 07/06/18 19:59 75 mls/hr Q24H MAURICIO Administration Potassium Phosphate 30 mmol/ 510 mls @ 85 mls/hr 07/06/18 08:00 07/06/18 08:04 Sodium Chloride IV 07/06/18 13:59 85 mls/hr ONCE ONE Administration Multi-Ingred Cream/Lotion/Oil/Oint 1 applic 07/04/18 18:23 Artificial Tears Ophth Oint OU Q4HR PRN Dry Eye(s) Naloxone HCl 0.1 mg 06/24/18 18:55 Narcan 0.4 Mg/1 Ml IV Q2MIN PRN Res Rate </= 8 or 02 SAT < 92% Nicotine 14 mg 06/25/18 10:00 07/06/18 09:16 Habitrol TD 14 mg QDAY MAURICIO Administration Ondansetron HCl 4 mg 06/24/18 14:00 06/29/18 04:00 Zofran IV 4 mg Q8H PRN Administration Nausea And Vomiting Pantoprazole Sodium 40 mg 07/04/18 22:00 07/06/18 09:15 Protonix IV 40 mg BID MAURICIO Administration Sodium Chloride 10 ml 06/24/18 22:00 07/06/18 09:15 Sodium Chloride Flush Syringe 10 Ml IV 10 ml BID MAURICIO Administration Sodium Chloride 10 ml 06/24/18 14:00 Sodium Chloride Flush Syringe 10 Ml IV PRN PRN LINE FLUSH Sodium Chloride 5 ml 07/04/18 18:23 Nacl 0.9% 500 Ml IV DIRECT PRN ARTERIAL PRODUCTION ARTIST
--- NOTE | 2018-07-06 10:43 | Progress Note ---
Assessment and Plan Cultures: 06/26/2018 Blood culture no growth 07/03/2018 Blood culture no growth so far 07/04/2018 Sputum usual respiratory kait Assessment: 58 y/o female with history of HTN, tobacco dependence admitted on 06/24/2018 due to a week history of severe abdominal pain, constipation and nausea. 1) Severe sepsis: still tachycardia and leukocytosis (leukomoid reaction) better. Initial Sepsis Etiology most likely peritonitis from diverticular perforation/abscess +/- enterocolitis +/- partial SBO +/- pneumonia. Leukomoid reaction likely due to bowel ischemia. 2) Acute fecal peritonitis from diverticular perforation/abscess: CT abdomen showed suspect diffuse moderate to severe enterocolitis with multiple air-fluid levels. Possible small bowel obstruction or high-grade incomplete obstruction. Transition point is not clearly identified but suspected in the pelvis. Small pockets of free air suggests perforation which could be related to the sigmoid colon which demonstrates diverticulosis/diverticulitis. Small amount of free fluid in the abdomen. Small to moderate fluid in the pelvis particularly around the sigmoid colon may represent developing abscesses. She was taken to the OR on 06/24/2018 for Exploratory laparotomy, Ezequiel's for perforated sigmoid diverticulitis with purulent peritonitis. No OR cultures available. CRP 25-->13. Repeat CT abdomen showed a peripherally enhancing portion thick fluid collection in the right anterior abdomen measuring up to 9.4 cm x 0.8 cm in thickness. There is a small amount of gas within this structure. This appears to represent an abscess. There is also a small amount of fluid in the cul-de-sac in the pelvis. Small bowel loops are mildly dilated and fluid filled which could represent a partial obstruction or diffuse ileus. 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 No pulsation in SMA, small bowel resection, partial colon resection, temporary abdominal closure with abthera vac on 07/04. 3) Bilateral pneumonia: ?aspiration v/s HAP on cefepime and vancomycin. CTA showed scattered infiltrates identified in both lungs, this is most prominent in the right lower lung, slight bilateral effusions, no evidence of pulmonary arterial emboli . 4) Acute hypoxemic resp failure: on venti mask from pneumonia +/- COPD 5) Acute mesenteric ischemia with SMA and SMV thrombus and Distal aortic thrombus: unclear etiology Recommendations: - agree with cards consult for acute thromboembolic event, on anticoagulation - continue fluconazole 400 mg D of 14 - continue Cefepime and flagyl D of , may need to be extended as ischemic bowel was noted on 07/03 and went to the OR again on 07/04 - stop Vancomycin - no evidence of MRSA - monitor leukocytosis Discussed with Dr Roxanne Evans will be rounding tomorrow Cira Villanueva MD Infectious Diseases [employer] [facility] ([facility]) M [phone] O [phone] Subjective Date of service: 07/06/18 Principal diagnosis: small bowel ischemiaperitonitis/penumonia Interval history: Remains intubated alert on the vent. No fever, no pressors. ROS limited Objective - Exam Narrative Exam: General appearance: alert on the vent in NAD Eyes: anicteric sclerae, moist conjunctivae; no lid-lag; PERRLA HENT: Atraumatic; oropharynx +ETT Neck: Trachea midline; supple, no thyromegaly or lymphadenopathy Lungs: CTA nathaniel CV: RRR Abdomen: Soft, midline abdomen with abthera vac. Extremities: No peripheral edema or extremity lymphadenopathy Skin: Normal temperature, turgor and texture; no rash, ulcers or subcutaneous nodules Psych: no agitated. Neuro: alert follows commands Right arm PICC Sharif - Constitutional Vitals: Vital Signs Temp Pulse Resp BP Pulse Ox 97.6 F 109 H 18 119/68 100 07/06/18 08:00 07/06/18 08:25 07/06/18 08:25 07/06/18 07:49 07/06/18 07:49 Temperature -Last 24 Hours Temperature 97.6 F Temperature 98.9 F Temperature 98.1 F Temperature 99.6 F Temperature 98.8 F Temperature 98.9 F - Labs CBC & Chem 7: 07/06/18 05:00 07/06/18 05:00 Labs: Abnormal lab results 07/05/18 07/05/18 07/05/18 Range/Units 10:57 10:57 18:27 WBC (4.5-11.0) K/mm3 RBC (3.65-5.03) M/mm3 Hgb (10.1-14.3) gm/dl Hct (30.3-42.9) % Plt Count (140-440) K/mm3 Heparin Anti-Xa Level < 0.10 L < 0.10 L (0.3-0.7) U.I./ml POC ABG pO2 (80-105) Chloride (98-107) mmol/L BUN (7-17) mg/dL Creatinine (0.7-1.2) mg/dL Glucose (65-100) mg/dL Calcium (8.4-10.2) mg/dL Phosphorus (2.5-4.5) mg/dL Total Protein (6.3-8.2) g/dL Albumin (3.9-5) g/dL Vancomycin Trough 38.9 H (5.0-20.0) ug/mL 07/06/18 07/06/18 07/06/18 Range/Units 02:00 04:48 05:00 WBC 23.1 H (4.5-11.0) K/mm3 RBC 2.50 L (3.65-5.03) M/mm3 Hgb 7.3 L (10.1-14.3) gm/dl Hct 22.3 L (30.3-42.9) % Plt Count 541 H (140-440) K/mm3 Heparin Anti-Xa Level 0.23 L (0.3-0.7) U.I./ml POC ABG pO2 118 H (80-105) Chloride (98-107) mmol/L BUN (7-17) mg/dL Creatinine (0.7-1.2) mg/dL Glucose (65-100) mg/dL Calcium (8.4-10.2) mg/dL Phosphorus (2.5-4.5) mg/dL Total Protein (6.3-8.2) g/dL Albumin (3.9-5) g/dL Vancomycin Trough (5.0-20.0) ug/mL 07/06/18 Range/Units 05:00 WBC (4.5-11.0) K/mm3 RBC (3.65-5.03) M/mm3 Hgb (10.1-14.3) gm/dl Hct (30.3-42.9) % Plt Count (140-440) K/mm3 Heparin Anti-Xa Level (0.3-0.7) U.I./ml POC ABG pO2 (80-105) Chloride 109.8 H (98-107) mmol/L BUN 27 H (7-17) mg/dL Creatinine 0.2 L (0.7-1.2) mg/dL Glucose 157 H (65-100) mg/dL Calcium 7.7 L (8.4-10.2) mg/dL Phosphorus 1.60 L (2.5-4.5) mg/dL Total Protein 4.5 L (6.3-8.2) g/dL Albumin 1.7 L (3.9-5) g/dL Vancomycin Trough (5.0-20.0) ug/mL
[2018-07-06] MEDS: DIFLUCAN 200 ML IV SCH (10:54)
[2018-07-06] MEDS: DIPRIVAN 10 MG/ML 1,000 MG/100 ML BOTTLE IV SCH (12:18)
[2018-07-06] MEDS: fentaNYL DRIP Premix 2,000 MCG/100 ML BAG IV SCH (16:25)
--- NOTE | 2018-07-06 18:32 | Progress Note ---
Assessment and Plan Assessment and plan: Patient is 58 yo female with Nicotine Dependence, Severe Malnutrition present to ED for evaluation. Patient presented with abdominal pain for 1 week progressively worsening symptoms over the same time frame. Pt states that her abdominal pain is 10/10, generalized, nonradiating, constant, worsened with movement. Pt denies NVD, ingestion of food/water from new or different sources, BRBPR, skin rash, or recent ill contacts. She was seen and evaluated in ED and found to have PSBO complicated by Bowel Perforation, SIRS, and severe malnutrition. Pt admitted to surgical floor. Surgery consulted in ED. Patient was taken to OR urgently. She had exploratory lap. surgeon found Sigmoid diverticulitis with perforation of distal sigmoid colon, purulent peritonitis. Peritoneal lavage and Posey's procedure was done on 06/24. Post-op was doing well, but on 06/28 developed acute resp failure was put on PBIPAP, transferred to ICU. Pulmonology consulted. she was given lasix, she improved BIPAP, discontinue d, placed on HFNC Oxygen and now on oxygen by NC. today has worsening leukocytosis therefore CT Chest/Abd ordered. 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 Patient was also noted to have right lower quadrant not appear viable. And was taken back for exploratory laparotomy. * s/p Exploratory laparotomy, small bowel resection, partial colon resection, temporary abdominal closure with abthera vac 07/04/18, POD 1 and * Exploratory laparotomy, Ezequiel's procedure 06/24/18 * Continues on full ventilatory support * IV heparin infusion, * Plan is to repeat scan in am and possible return to OR for evaluation of remaining bowel * PICC line placed for TPN. * Discussed extensively with patients brother, Sisters and Significant other. Acute Mesenteric ischemia 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 Acute hypoxic respiratory failure -oN MECHANICAL VENTILATION Severe enterocolitis Purulent peritonitis Sigmoid diverticulitis with perforation of distal sigmoid colon hypokalemia, severe hyponatremia Moderate malnutrition Nicotine dependence Sepsis- On Cefepime, Fluconazole,flagyl leukocytosis, worsening, WBC 48.6 today Plan S/P Exploratory laparotomy, small bowel resection, partial colon resection, temporary abdominal closure with abthera vac 07/04/18 With only 40cm small bowel remaining. Continue Heparin drip Abdomen left open WITH Temporal closure Status post ex lap, peritoneal lavage, Posey's procedure on 06/24 Electrolytes have been replaced abx per ID. On cefepime, fluconazole, flagyl lasix, oxygen supplement, breathing rx as needed Echo Prior to discharge Full code status discussed with surgeon and ID Physician Fu Ct chest/abd The high probability of a clinically significant, sudden or life threatening deterioration of the [GI] system(s) required my full and direct attention, i ntervention and personal management. The aggregate critical care time was [55] minutes. This time is in addition to time spent performing reported procedures but includes the following: [x] Data Review and interpretation [x] Patient assessment and monitoring of vital signs [x] Documentation [x] Medication orders and management History Interval history: Patient' seen and examined this morning Remains on full ventilatory support, No other adverse event reported by Nursing staff. Hospitalist Physical - Physical exam Narrative exam: Gen: in mild distress on full mechnical ventilatory support HEENT: Normocephalic, atraumatic, oct in place, ett noted Neck: supple, no JVD Heart: S1 and S2 reg, no murmurs, rubs or gallop Lungs: Bilateral crackles less, no wheeze Abd: soft, NT, abthera vac in place, clear drainage noted, osteomy noted. Ext:No edema, no clubbing, no cyanosis Neuro: Awake,alert, oriented x 3, moves all ext, non focal Psych:anxious : Sharif - Constitutional Vitals: Temp Pulse Resp BP Pulse Ox 98.5 F 93 H 18 118/65 99 07/06/18 16:00 07/06/18 18:00 07/06/18 18:00 07/06/18 18:00 07/06/18 18:00 General appearance: Present: other (intubated but able to nod head and shake head to commands) Results - Labs CBC & Chem 7: 07/06/18 05:00 07/06/18 05:00 Labs: Laboratory Last Values WBC 23.1 K/mm3 (4.5-11.0) H 07/06/18 05:00 RBC 2.50 M/mm3 (3.65-5.03) L 07/06/18 05:00 Hgb 7.3 gm/dl (10.1-14.3) L 07/06/18 05:00 Hct 22.3 % (30.3-42.9) L 07/06/18 05:00 MCV 89 fl (79-97) 07/06/18 05:00 MCH 29 pg (28-32) 07/06/18 05:00 MCHC 33 % (30-34) 07/06/18 05:00 RDW 15.2 % (13.2-15.2) 07/06/18 05:00 Plt Count 541 K/mm3 (140-440) H 07/06/18 05:00 Add Manual Diff Complete 06/29/18 00:57 Total Counted 200 06/29/18 00:57 Seg Neutrophils % Nutritional Services Cook 06/29/18 00:57 Seg Neuts % (Manual) 93.0 % (40.0-70.0) H 06/29/18 00:57 3.5 % 06/29/18 00:57 1.5 % (13.4-35.0) L 06/29/18 00:57 Reactive Lymphs % (Man) 0.5 % 06/29/18 00:57 1.5 % (0.0-7.3) 06/29/18 00:57 0 % (0.0-4.3) 06/29/18 00:57 0 % (0.0-1.8) 06/29/18 00:57 0 % 06/29/18 00:57 0 % 06/29/18 00:57 0 % 06/29/18 00:57 0 % 06/29/18 00:57 Nucleated RBC % Not Reportable 06/29/18 00:57 Seg Neutrophils # Man 26.9 K/mm3 (1.8-7.7) H 06/29/18 00:57 Band Neutrophils # 1.0 K/mm3 06/29/18 00:57 0.4 K/mm3 (1.2-5.4) L 06/29/18 00:57 Abs React Lymphs (Man) 0.1 K/mm3 06/29/18 00:57 0.4 K/mm3 (0.0-0.8) 06/29/18 00:57 0.0 K/mm3 (0.0-0.4) 06/29/18 00:57 0.0 K/mm3 (0.0-0.1) 06/29/18 00:57 0.0 K/mm3 06/29/18 00:57 0.0 K/mm3 06/29/18 00:57 0.0 K/mm3 06/29/18 00:57 Blast Cells # 0.0 K/mm3 06/29/18 00:57 WBC Morphology Not Reportable 06/29/18 00:57 WBC Morphology TNR 06/29/18 00:57 Hypersegmented Neuts Few 06/29/18 00:57 Hyposegmented Neuts Not Reportable 06/29/18 00:57 Hypogranular Neuts Not Reportable 06/29/18 00:57 Not Reportable 06/29/18 00:57 Not Reportable 06/29/18 00:57 Not Reportable 06/29/18 00:57 Not Reportable 06/29/18 00:57 Not Reportable 06/29/18 00:57 Not Reportable 06/29/18 00:57 Appears increased 06/29/18 00:57 Not Reportable 06/29/18 00:57 Plt Clumps, EDTA Not Reportable 06/29/18 00:57 Not Reportable 06/29/18 00:57 Not Reportable 06/29/18 00:57 Not Reportable 06/29/18 00:57 Plt Morphology Comment Not Reportable 06/29/18 00:57 RBC Morphology Not Reportable 06/29/18 00:57 Dimorphic RBCs Not Reportable 06/29/18 00:57 Not Reportable 06/29/18 00:57 Not Reportable 06/29/18 00:57 Not Reportable 06/29/18 00:57 Not Reportable 06/29/18 00:57 Not Reportable 06/29/18 00:57 Not Reportable 06/29/18 00:57 Not Reportable 06/29/18 00:57 Not Reportable 06/29/18 00:57 Not Reportable 06/29/18 00:57 Not Reportable 06/29/18 00:57 Not Reportable 06/29/18 00:57 Not Reportable 06/29/18 00:57 Not Reportable 06/29/18 00:57 Not Reportable 06/29/18 00:57 Not Reportable 06/29/18 00:57 Not Reportable 06/29/18 00:57 Not Reportable 06/29/18 00:57 Not Reportable 06/29/18 00:57 Not Reportable 06/29/18 00:57 Acanthocytes (Spur) Not Reportable 06/29/18 00:57 Rouleaux Not Reportable 06/29/18 00:57 Not Reportable 06/29/18 00:57 Not Reportable 06/29/18 00:57 Not Reportable 06/29/18 00:57 Not Reportable 06/29/18 00:57 Hem Pathologist Commnt No 06/29/18 00:57 PT 18.7 Sec. (12.2-14.9) H 07/04/18 19:00 INR 1.46 (0.87-1.13) H 07/04/18 19:00 APTT 26.7 Sec. (24.2-36.6) 07/04/18 19:00 Heparin Anti-Xa Level 0.14 U.I./ml (0.3-0.7) L 07/06/18 12:05 POC ABG pH 7.411 (7.35-7.45) 07/06/18 04:48 POC ABG pCO2 42.6 (35-45) 07/06/18 04:48 POC ABG pO2 118 (80-105) H 07/06/18 04:48 POC ABG HCO3 27.1 (22-26 mml/L) 07/06/18 04:48 POC ABG Total CO2 28 (23-27mmol/L) 07/06/18 04:48 POC ABG O2 Sat 99 07/06/18 04:48 POC ABG Base Excess 2 ((-2) - (+3)mmol/L) 07/06/18 04:48 28 % 07/06/18 04:48 Sodium 143 mmol/L (137-145) 07/06/18 05:00 Potassium 3.7 mmol/L (3.6-5.0) 07/06/18 05:00 Chloride 109.8 mmol/L (98-107) H 07/06/18 05:00 Carbon Dioxide 30 mmol/L (22-30) 07/06/18 05:00 7 mmol/L 07/06/18 05:00 BUN 27 mg/dL (7-17) H 07/06/18 05:00 0.2 mg/dL (0.7-1.2) L 07/06/18 05:00 Estimated GFR > 60 ml/min 07/06/18 05:00 135 % 07/06/18 05:00 Glucose 157 mg/dL (65-100) H 07/06/18 05:00 POC Glucose 141 (70-105) H 07/06/18 17:29 Lactic Acid 1.40 mmol/L (0.7-2.0) 07/04/18 21:11 Calcium 7.7 mg/dL (8.4-10.2) L 07/06/18 05:00 Phosphorus 1.60 mg/dL (2.5-4.5) L 07/06/18 05:00 Magnesium 2.10 mg/dL (1.7-2.3) 07/06/18 05:00 0.30 mg/dL (0.1-1.2) 07/06/18 05:00 1.5 mg/dL (0-0.2) H 06/24/18 11:19 0.4 mg/dL 06/24/18 11:19 AST 21 units/L (5-40) 07/06/18 05:00 ALT 16 units/L (7-56) 07/06/18 05:00 99 units/L (35-129) 07/06/18 05:00 13.20 mg/dL (0.00-1.30) H 07/03/18 11:07 NT-Pro-B Natriuret Pep 1572 pg/mL (0-900) H 06/28/18 09:56 4.5 g/dL (6.3-8.2) L 07/06/18 05:00 1.7 g/dL (3.9-5) L 07/06/18 05:00 0.6 % 07/06/18 05:00 8 units/L (13-60) L 06/24/18 11:19 Na (Yellow) 07/03/18 Unknown Hazy (Clear) 07/03/18 Unknown 6.0 (5.0-7.0) 07/03/18 Unknown Ur Specific [place] 1.023 (1.003-1.030) 07/03/18 Unknown <15 mg/dl mg/dL (Negative) 07/03/18 Unknown Neg mg/dL (Negative) 07/03/18 Unknown Neg mg/dL (Negative) 07/03/18 Unknown Sm (Negative) 07/03/18 Unknown Neg (Negative) 07/03/18 Unknown Neg (Negative) 07/03/18 Unknown < 2.0 mg/dL (<2.0) 07/03/18 Unknown Ur Leukocyte Esterase Neg (Negative) 07/03/18 Unknown 1.0 /HPF (0.0-6.0) 07/03/18 Unknown 3.0 /HPF (0.0-6.0) 07/03/18 Unknown U Epithel Cells (Auto) 7.0 /HPF (0-13.0) 07/03/18 Unknown 1+ /HPF (Negative) 06/24/18 13:00 Few /HPF 07/03/18 Unknown Vancomycin Trough 38.9 ug/mL (5.0-20.0) H 07/05/18 10:57 Blood Type O POSITIVE 07/04/18 17:54 Antibody Screen TNR 07/04/18 17:54 FADY Antibody Screen Negative 07/04/18 17:54 Crossmatch See Detail 07/04/18 17:54 Active Medications - Current Medications Current Medications: Generic Name Dose Route Start Last Admin Trade Name Freq PRN Reason Stop Dose Admin Albuterol 2.5 mg 07/02/18 07:44 Proventil IH Q4HRT PRN Shortness Of Breath Albuterol/Ipratropium 1 ampul 07/02/18 14:00 07/06/18 14:47 Duoneb *Not For Prn Use* IH 1 ampul TIDRT MAURICIO Administration Arformoterol Tartrate 15 mcg 07/02/18 20:00 07/06/18 07:56 Brovana Nebu IH 15 mcg Q12HRT MAURICIO Administration Budesonide 0.5 mg 07/02/18 20:00 07/06/18 07:56 Pulmicort IH 0.5 mg Q12HRT MAURICIO Administration Fentanyl 25 mcg 06/30/18 14:19 Sublimaze IV Q2H PRN Pain, Moderate (4-6) Hydrophilic Ointment 1 applic 07/04/18 18:23 Vaseline Lip Therapy TP Q2HR PRN Dry Lips Metronidazole 500 mg in 100 mls @ 100 mls/hr 06/24/18 22:00 07/06/18 14:00 Flagyl 500 Mg/100 Ml IV 100 mls/hr Q8H [facility] Administration Protocol Fluconazole 200 mls @ 100 mls/hr 06/26/18 14:00 07/06/18 10:54 Diflucan IV 100 mls/hr Q24HR [facility] Administration Protocol Cefepime HCl 2 gm in 100 mls @ 200 mls/hr 06/27/18 14:00 07/06/18 09:16 Maxipime/Ns 2 Gm/100 Ml IV 200 mls/hr Q12HR [facility] Administration Protocol Fentanyl Citrate 2,000 mcg in 100 mls @ 2.605 mls/hr 07/04/18 19:00 07/06/18 16:25 Fentanyl Drip Premix IV 2 mcg/kg/hr TITR MAURICIO 5.21 mls/hr Administration Protocol 1 MCG/KG/HR Propofol 1,000 mg in 100 mls @ 1.563 mls/hr 07/04/18 19:00 07/06/18 13:00 Diprivan 10 Mg/Ml IV 20 mcg/kg/min TITR MAURICIO 6.252 mls/hr Titration Protocol 5 MCG/KG/MIN Heparin Sodium/Sodium Chloride 25,000 unit in 500 mls @ 15 mls/hr 07/04/18 19:00 07/06/18 13:40 Heparin/ 0.45% Nacl-25,000 Unit/500 Ml IV 07/06/18 23:45 1,250 units/hr TITR MAURICIO 25 mls/hr Titration Protocol 750 UNITS/HR Amino Acids 2,000 mls @ 75 mls/hr 07/05/18 20:00 07/05/18 20:28 Clinimix 4.25%-5% Solution IV 07/06/18 19:59 75 mls/hr Q24H [facility] Administration Amino Acids/Electrolytes/Dextrose 1,800 mls @ 75 mls/hr 07/06/18 20:00 Tpn Adult IV 07/07/18 19:59 DAILY@1999 [facility] Protocol Multi-Ingred Cream/Lotion/Oil/Oint 1 applic 07/04/18 18:23 Artificial Tears Ophth Oint OU Q4HR PRN Dry Eye(s) Naloxone HCl 0.1 mg 06/24/18 18:55 Narcan 0.4 Mg/1 Ml IV Q2MIN PRN Res Rate </= 8 or 02 SAT < 92% Nicotine 14 mg 06/25/18 10:00 07/06/18 09:16 Habitrol TD 14 mg QDAY MAURICIO Administration Ondansetron HCl 4 mg 06/24/18 14:00 06/29/18 04:00 Zofran IV 4 mg Q8H PRN Administration Nausea And Vomiting Pantoprazole Sodium 40 mg 07/04/18 22:00 07/06/18 09:15 Protonix IV 40 mg BID MAURICIO Administration Sodium Chloride 10 ml 06/24/18 22:00 07/06/18 09:15 Sodium Chloride Flush Syringe 10 Ml IV 10 ml BID MAURICIO Administration Sodium Chloride 10 ml 06/24/18 14:00 Sodium Chloride Flush Syringe 10 Ml IV PRN PRN LINE FLUSH Sodium Chloride 5 ml 07/04/18 18:23 Nacl 0.9% 500 Ml IV DIRECT PRN [employer] INS[employer]ANCE LEGAL ASSISTANT Nutrition/Malnutrition Assess - Dietary Evaluation Nutrition/Malnutrition Findings: Nutrition Notes Start: 06/30/18 16:45 Freq: Status: Active Protocol: Document 07/06/18 09:07 LP (Rec: 07/06/18 09:19 LP [id number]) Nutrition Notes Initial or Follow up Assessment Other Pertinent Diagnosis Severe enterocolitis, peritonitis, sigmoid diverticulitis s/p exp lap Current Diet Clinimix at 75ml/hr Labs/Tests Reviewed Pertinent Medications Reviewed Height 5 ft 3 in Weight 52.1 kg [place] Body Weight (kg) 52.27 BMI 20.3 Subjective/Other Information Clinimix infusing at 75ml/hr. MD Wilcox states that she will likely be residential TPN. Percent of energy/protein needs met: 36%/76% Burn Absent Trauma Absent #2 Nutrition Diagnosis Inadequate oral intake Etiology Altered GI function As Evidenced by Signs and Symptoms S/P Exp lap #1 Nutrition Diagnosis Increased nutrient needs ( specify in comment below) Diagnosis Progress(for reassessment Continues documentation) Is patient on ventilator? Yes Is Patient Ambulatory and/or Out of Bed No REE-([facility]-confined to bed) 1289.088 Kcal/Kg value to use for calculation 33 Approximate Energy Requirements Using 1719 kcal/Kg Calculation Used for Recommendations Kcal/kg Additional Notes Pro needs 1.2-2/k-104g/ day Fluid needs 1ml/kcal Nutrition Intervention Change Diet Order: PPN Nutrition Support: PPN at 75ml/hr: 6% dextrose, 5 % amino acid, 90mEq Na, 63mEq K, 9mEq Ca, 27mmol phos, 0mEq Mg, Chloride: Acetate 50:50, MVI, Thiamine, MTE Kcal 700 Protein (gm) 90 Carbohydrates (gm) 100 Fat (gm) 0 Fluid (mL) 1,800 Fiber (gm) 0 Goal #1 Meet at least 80% of kcal and protein needs as best as possible Anticipated Discharge Needs: home TPN Follow-Up By: 07/07/18 Additional Comments Labs in AM: BMP, Mg, Phos, TG
[2018-07-06] MEDS ORDERED: TPN ADULT 1,800 ML IV SCH (20:00)
[2018-07-06] MEDS: HEPARIN/ 0.45% NACL-25,000 UNIT/500 ML 25,000 UNIT/500 ML BAG IV SCH (21:41)
[2018-07-07 02:50] LABS: BUN/Creatinine Ratio 70; Blood Urea Nitrogen 14 mg/dL (7-17); Calcium 7.6 mg/dL (8.4-10.2); Hemolysis Index 4
--- NOTE | 2018-07-07 03:52 | XRay Report ---
PROCEDURE: XR CHEST 1V AP TECHNIQUE: Chest radiograph single view. HISTORY: follow up respiratory failure COMPARISONS: None . FINDINGS: Heart: Normal. Mediastinum/Vessels: Normal. Lungs/Pleural space: Lungs are expanded. There are infiltrates in the right upper lung. There is no pleural effusion or pneumothorax.. Bony thorax: No acute osseous abnormality. Life support devices: Endotracheal tube is in the distal trachea approximately 2 cm above the kristopher. The NG tube is in the stomach. There is a right-sided PICC line. The tip is in the superior vena cav a.. IMPRESSION: Heart size is normal.. Lungs are expanded. There are infiltrates in the right upper lung. There is no pleural effusion or pn eumothorax.. Endotracheal tube is in the distal trachea approximately 2 cm above the kristopher. The NG tube is in the stomach. There is a right-sided PICC line. The tip is in the superior vena cava.. This document is electronically signed by Trae Mendoza MD., Jul 07 2018 03:50:51 ALEN ET
[2018-07-07] MEDS: FLAGYL 500 MG/100 ML 500 MG/100 ML BAG IV SCH ×3 (05:46→21:17)
[2018-07-07] MEDS ORDERED: SUBLIMAZE ONE ×2 (07:24→11:08)
[2018-07-07] MEDS ORDERED: VERSED IV ONE (07:25)
[2018-07-07] MEDS ORDERED: KETALAR ONE (07:25)
[2018-07-07 07:27] LABS: Hematocrit 22.2 % (30.3-42.9); Hemoglobin 7.2 gm/dl (10.1-14.3); Mean Corpuscular HGB Conc 33 % (30-34); Mean Corpuscular Volume 89 fl (79-97); Platelet Count 517 K/mm3 (140-440); Red Blood Count 2.49 M/mm3 (3.65-5.03)
[2018-07-07] MEDS ORDERED: NACL 0.9% 250ML 250 ML ONE (08:05)
[2018-07-07] MEDS ORDERED: LEVOPHED IV ONE (08:05)
[2018-07-07] MEDS ORDERED: ADRENALIN ONE (08:05)
[2018-07-07] MEDS ORDERED: NACL 0.9% IR ONE (08:45)
--- NOTE | 2018-07-07 08:52 | Event Note ---
Date: 07/07/18 pt went to OR
--- NOTE | 2018-07-07 09:07 | Anesthesia Consultation ---
Anesthesia Consult and Med Hx Date of service: 07/07/18 - Airway Intubation Access Assessment: Probably Good (7.5 oETT in situ secured at 22cm @ the lip.) - Pulmonary Exam CTA: Yes - Cardiac Exam Cardiac Exam: RRR (tachycardic to low 100s) - Pre-Operative Health Status ASA Pre-Surgery Classification: ASA4 Proposed Anesthetic Plan: General - Pulmonary Hx Smoking: Yes Hx Respiratory Symptoms: Yes (respiratory failure on mechanical ventilation) - Cardiovascular System Hx Hypertension: Yes (no antihypertensives as outpatient) Hx Heart Attack/AMI: No Hx Cardia Arrhythmia: No - Central Nervous System CVA: No - Endocrine Hx Renal Disease: No Hx Liver Disease: No Hx Insulin Dependent Diabetes: No Hx Non-Insulin Dependent Diabetes: No Hx Thyroid Disease: No - Hematic Hx Anemia: Yes - Other Systems Hx Obesity: No - Additional Comments Anesthesia Medical History Comments: Admitted 06/24/18 with perferated diverticulitis s/p Posey's with hospital course complicated by acute mesenteric ischemia now s/p ex lap and bowel resection, SMV/SMA/aortic thrombosis, sepsis, and respiratory failure. Currently in ICU with open abdomen. Awake, nods appropriately to questions. Vent settings AC/PRVC 400x18 Peep 6 FiO2 0.28. Drips: propofol 30mcg/kg/min, fentanyl 2 mcg/kg/hr, heparin gtt, and TPN. HD stable, no pressors. PVCs noted on monitor. PIVx2 and a-line in place. Plan GETA with intraoperative transfusion for Hb 7.2. Anesthetic plan discussed with family at the bedside and sister ([email or web address]) signed consent.
--- NOTE | 2018-07-07 09:09 | Anesthesia Day of Surgery ---
Anesthesia Day of Surgery - Day of Surgery Patient Examined: Yes Patient H&P Reviewed: Yes Patient is NPO: Yes
[2018-07-07] MEDS ORDERED: CALCIUM CHLORIDE IV ONE (10:05)
[2018-07-07] MEDS: MAXIPIME/NS 2 GM/100 ML 2 GM/100 ML BAG IV SCH ×3 (10:24→21:17)
[2018-07-07] MEDS: SODIUM CHLORIDE FLUSH SYRINGE 10 ML IV SCH ×2 (10:24→22:00)
[2018-07-07] MEDS: DIFLUCAN 200 ML IV SCH ×2 (10:25→12:06)
[2018-07-07] MEDS: HABITROL TD SCH (10:26)
[2018-07-07] MEDS: PROTONIX IV SCH ×3 (10:27→21:17)
[2018-07-07] MEDS ORDERED: DILAUDID IV PRN (10:43)
--- NOTE | 2018-07-07 10:56 | Post Operative Note ---
Date of procedure: 07/07/18 Pre-op diagnosis: ischemic bowel Post-op diagnosis: same Findings: 1. 8 cm segment of necrotic small bowel 2. all remaining colon viable 3. dopplerable signals in SMA, middle colic artery IVF: 700c EBL: <50cc Uo: 200cc NGT: 200cc Blood: 2 Units PRBC Procedure: exploratory laparotomy, small bowel resection with primary anastamosis, right hemicolectomy with ileocolonic anastamosis, temporary closure of abdomen with abthera vac Surgeon: OLGA FELDMAN Vice President Fixed Income: MILA PATHAK Estimated blood loss: minimal Pathology: list (1. portion of small bowel) Specimen disposition: to lab (1. portion of small bowel, 2. right colon) Condition: stable Disposition: PACU
[2018-07-07] MEDS ORDERED: SUBLIMAZE IV PRN (11:08)
[2018-07-07] MEDS: PULMICORT IH SCH ×2 (11:30→19:37)
[2018-07-07] MEDS: BROVANA NEBU IH SCH ×2 (11:31→19:37)
[2018-07-07] MEDS: DUONEB *Not for PRN Use IH SCH ×3 (11:33→19:37)
[2018-07-07] MEDS: DIPRIVAN 10 MG/ML 1,000 MG/100 ML BOTTLE IV SCH (12:07)
--- NOTE | 2018-07-07 12:12 | Post Anesthesia Evaluation ---
- Post Anesthesia Evaluation Patient Participated: No (sedated) Airway Patent: Yes Stable Respiratory Function: Yes (returned to near-baseline vent settings (slightly increased FiO2)) Nausea/Vomiting: No Temp > 96.8F: Yes Pain Manageable: Yes Adequeate Hydration: Yes Anesthesia Complications: No Block Receding Appropriately: Not Applicable Patient on Ventilator: Yes (AC 400x18, FiO2 40%, Peep 6) Other Comments: HD stable, propofol gtt for sedation, vent settings as described above.
--- NOTE | 2018-07-07 13:09 | Progress Note ---
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 The report from surgery today more optimistic with more viable small bowel seen, per surgeon - re-exploratory laparotomy, prior small bowel resection, partial colon resection, temporary abdominal closure with abthera vac s/p acute bowel perforation, diverticulitis. Leukemoid reaction after the above.improving Post op acute respiratory failure secondary to volume overload. On vent.ABG adequate COPD Hypokalemia Recommendations Potassium replacement She had been recently clear so I don't see the point of using LABA at this point. PVCs noted Antibiotics per ID. Check cultures Mechanical ventilation support, continue current treatment Sedation as needed for patient comfort, adjust to RASS -1 to - 3 Maintain extubation precautions Daily morning sedation vacation. Discussed extubation planning with surgery, plan is to keep her on antihypertensive support until Tuesday, when she will get new exploratory surgery DVT prophylaxis PPI prophylaxis Nutritional support, PICC line in place Discussed with staff, family in detail. Critical care time was 31 minutes of [id number] evaluation and coordination of care Subjective Date of service: 07/07/18 Principal diagnosis: small bowel ischemiaperitonitis/penumonia Interval history: Sedated and intubated Objective Vital Signs - 12hr 07/07/18 07/07/18 07/07/18 01:15 01:30 01:45 Temperature Pulse Rate 97 H 106 H 96 H Pulse Rate [ From Monitor] Respiratory 18 18 18 Rate Blood Pressure 105/59 93/69 94/64 O2 Sat by Pulse 100 100 100 Oximetry 07/07/18 07/07/18 07/07/18 02:00 02:15 02:30 Temperature Pulse Rate 106 H 101 H 92 H Pulse Rate [ From Monitor] Respiratory 19 18 18 Rate Blood Pressure 111/66 104/68 104/62 O2 Sat by Pulse 100 100 100 Oximetry 07/07/18 07/07/18 07/07/18 02:45 03:00 03:15 Temperature Pulse Rate 105 H 95 H 93 H Pulse Rate [ From Monitor] Respiratory 22 18 18 Rate Blood Pressure 117/85 106/57 118/67 O2 Sat by Pulse 99 100 100 Oximetry 07/07/18 07/07/18 07/07/18 03:20 03:30 03:45 Temperature 98.9 F Pulse Rate 94 H 92 H Pulse Rate [ From Monitor] Respiratory 18 18 Rate Blood Pressure 117/60 105/57 O2 Sat by Pulse 100 100 Oximetry 07/07/18 07/07/18 07/07/18 04:00 04:15 04:30 Temperature Pulse Rate 88 102 H 105 H Pulse Rate [ 100 H From Monitor] Respiratory 18 16 18 Rate Blood Pressure 104/56 117/62 116/68 O2 Sat by Pulse 100 99 99 Oximetry 07/07/18 07/07/18 07/07/18 04:45 05:00 05:15 Temperature Pulse Rate 103 H 102 H 93 H Pulse Rate [ From Monitor] Respiratory 16 18 18 Rate Blood Pressure 115/70 130/64 118/64 O2 Sat by Pulse 100 99 100 Oximetry 07/07/18 07/07/18 07/07/18 05:30 05:45 06:01 Temperature Pulse Rate 94 H 104 H 103 H Pulse Rate [ From Monitor] Respiratory 19 18 19 Rate Blood Pressure 115/63 130/82 123/60 O2 Sat by Pulse 99 99 100 Oximetry 07/07/18 07/07/18 07/07/18 06:15 06:30 06:45 Temperature Pulse Rate 100 H 96 H 101 H Pulse Rate [ From Monitor] Respiratory 18 18 17 Rate Blood Pressure 114/60 114/62 111/53 O2 Sat by Pulse 99 100 99 Oximetry 07/07/18 07/07/18 07/07/18 07:00 07:15 07:30 Temperature Pulse Rate 98 H 102 H 101 H Pulse Rate [ From Monitor] Respiratory 18 25 H 19 Rate Blood Pressure 111/53 117/63 116/65 O2 Sat by Pulse 100 99 99 Oximetry 07/07/18 07/07/18 07/07/18 07:45 08:00 08:09 Temperature 98.6 F Pulse Rate 98 H 106 H 106 H Pulse Rate [ 104 H From Monitor] Respiratory 18 18 Rate Blood Pressure 133/64 129/69 129/69 O2 Sat by Pulse 100 100 100 Oximetry 07/07/18 07/07/18 07/07/18 10:42 10:45 10:50 Temperature 98.4 F Pulse Rate 86 86 84 Pulse Rate [ From Monitor] Respiratory 18 14 14 Rate Blood Pressure 103/66 101/47 89/67 O2 Sat by Pulse 99 99 100 Oximetry 07/07/18 07/07/18 07/07/18 10:55 11:00 11:15 Temperature 98.7 F Pulse Rate 103 H 102 H 82 Pulse Rate [ From Monitor] Respiratory 18 18 18 Rate Blood Pressure 152/89 163/80 155/74 O2 Sat by Pulse 100 100 100 Oximetry 07/07/18 11:40 Temperature 98.2 F Pulse Rate 113 H Pulse Rate [ From Monitor] Respiratory 18 Rate Blood Pressure 152/85 O2 Sat by Pulse 100 Oximetry Constitutional: no acute distress, asleep Eyes: non-icteric ENT: oropharynx moist, other (ETT in position) Neck: supple, no JVD Effort: normal Ascultation: Bilateral: clear, diminished breath sounds Percussion: Bilateral: not dull Tactile fremitus: Bilateral: normal Cardiovascular: other (tachycardic with occasional PVCs) Gastrointestinal: hypoactive bowel sounds, tender, other (mildly distended,open covered exploratory lab,colostomy) Integumentary: normal Extremities: no cyanosis, no edema Neurologic: normal mental status, non-focal exam Psychiatric: mood appropriate CBC and BMP: 07/07/18 07:08 07/07/18 02:14 ABG, PT/INR, D-dimer: ABG POC ABG pH 7.411 (7.35-7.45) 07/07/18 04:24 POC ABG pCO2 43.0 (35-45) 07/07/18 04:24 POC ABG pO2 104 (80-105) 07/07/18 04:24 POC ABG HCO3 27.3 (22-26 mml/L) 07/07/18 04:24 POC ABG Total CO2 29 (23-27mmol/L) 07/07/18 04:24 POC ABG O2 Sat 98 07/07/18 04:24 PT/INR, D-dimer PT 18.7 Sec. (12.2-14.9) H 07/04/18 19:00 INR 1.46 (0.87-1.13) H 07/04/18 19:00 Abnormal lab findings: Abnormal Labs 06/24/18 06/24/18 06/24/18 11:18 11:19 11:19 WBC 19.0 H RBC Hgb Hct MCHC 35 H RDW Plt Count 457 H Seg Neuts % (Manual) 88.0 H Lymphocytes % (Manual) 2.0 L Seg Neutrophils # Man 16.7 H Lymphocytes # (Manual) 0.4 L Monocytes # (Manual) PT 15.9 H INR 1.19 H Heparin Anti-Xa Level POC ABG pH POC ABG pCO2 POC ABG pO2 Sodium 136 L Potassium 2.8 L* Chloride 96.7 L Carbon Dioxide BUN Creatinine 0.4 L Glucose 146 H POC Glucose Calcium Phosphorus Total Bilirubin 1.90 H Direct Bilirubin 1.5 H Alkaline Phosphatase 264 H C-Reactive Protein NT-Pro-B Natriuret Pep Total Protein Albumin 3.0 L Lipase 8 L Vitamin B12 Folate Ur Specific [place] Vancomycin Trough Crossmatch 06/24/18 06/24/18 06/25/18 13:00 19:47 06:55 WBC 18.3 H RBC Hgb Hct MCHC 35 H RDW Plt Count 481 H Seg Neuts % (Manual) 88.0 H Lymphocytes % (Manual) 4.0 L Seg Neutrophils # Man 16.1 H Lymphocytes # (Manual) 0.7 L Monocytes # (Manual) PT INR Heparin Anti-Xa Level POC ABG pH POC ABG pCO2 POC ABG pO2 Sodium Potassium 3.5 L D Chloride Carbon Dioxide 21 L BUN Creatinine 0.3 L Glucose 166 H POC Glucose Calcium 7.4 L D Phosphorus Total Bilirubin Direct Bilirubin Alkaline Phosphatase C-Reactive Protein NT-Pro-B Natriuret Pep Total Protein Albumin Lipase Vitamin B12 Folate Ur Specific [place] > 1.059 H Vancomycin Trough Crossmatch 06/25/18 06/26/18 06/26/18 06:55 11:54 11:54 WBC 19.9 H RBC 3.48 L Hgb Hct MCHC RDW Plt Count 583 H Seg Neuts % (Manual) Lymphocytes % (Manual) Seg Neutrophils # Man Lymphocytes # (Manual) Monocytes # (Manual) PT INR Heparin Anti-Xa Level POC ABG pH POC ABG pCO2 POC ABG pO2 Sodium 146 H Potassium 3.5 L Chloride 108.3 H 109.9 H Carbon Dioxide BUN Creatinine 0.4 L 0.3 L Glucose 159 H 153 H POC Glucose Calcium 7.7 L 8.2 L Phosphorus Total Bilirubin Direct Bilirubin Alkaline Phosphatase 152 H C-Reactive Protein NT-Pro-B Natriuret Pep Total Protein 5.3 L Albumin 2.1 L Lipase Vitamin B12 Folate Ur Specific [place] Vancomycin Trough Crossmatch 06/26/18 06/26/18 06/27/18 14:12 20:37 02:04 WBC RBC Hgb Hct MCHC RDW Plt Count Seg Neuts % (Manual) Lymphocytes % (Manual) Seg Neutrophils # Man Lymphocytes # (Manual) Monocytes # (Manual) PT INR Heparin Anti-Xa Level POC ABG pH 7.471 H 7.458 H POC ABG pCO2 POC ABG pO2 74 L 70 L Sodium Potassium Chloride Carbon Dioxide BUN Creatinine Glucose POC Glucose Calcium Phosphorus Total Bilirubin Direct Bilirubin Alkaline Phosphatase C-Reactive Protein 25.70 H NT-Pro-B Natriuret Pep Total Protein Albumin Lipase Vitamin B12 Folate Ur Specific [place] Vancomycin Trough Crossmatch 06/27/18 06/27/18 06/28/18 09:19 11:50 00:17 WBC 24.5 H 37.2 H RBC Hgb Hct MCHC RDW 15.4 H Plt Count 583 H 657 H Seg Neuts % (Manual) 98.0 H 88.5 H Lymphocytes % (Manual) 1.0 L 4.0 L Seg Neutrophils # Man 24.0 H 32.9 H Lymphocytes # (Manual) 0.2 L Monocytes # (Manual) 1.1 H PT INR Heparin Anti-Xa Level POC ABG pH POC ABG pCO2 POC ABG pO2 Sodium 146 H Potassium 3.5 L Chloride Carbon Dioxide BUN Creatinine 0.3 L Glucose 176 H POC Glucose Calcium 8.2 L Phosphorus Total Bilirubin Direct Bilirubin Alkaline Phosphatase C-Reactive Protein NT-Pro-B Natriuret Pep Total Protein Albumin Lipase Vitamin B12 Folate Ur Specific [place] Vancomycin Trough Crossmatch 06/28/18 06/28/18 06/28/18 09:56 09:56 09:56 WBC 37.8 H RBC Hgb Hct MCHC RDW 15.3 H Plt Count 634 H Seg Neuts % (Manual) Lymphocytes % (Manual) Seg Neutrophils # Man Lymphocytes # (Manual) Monocytes # (Manual) PT INR Heparin Anti-Xa Level POC ABG pH POC ABG pCO2 POC ABG pO2 Sodium 146 H Potassium 2.8 L* Chloride Carbon Dioxide 31 H BUN Creatinine 0.3 L Glucose 142 H POC Glucose Calcium 8.2 L Phosphorus Total Bilirubin Direct Bilirubin Alkaline Phosphatase C-Reactive Protein NT-Pro-B Natriuret Pep 1572 H Total Protein Albumin Lipase Vitamin B12 Folate Ur Specific [place] Vancomycin Trough Crossmatch 06/28/18 06/28/18 06/29/18 13:19 21:24 00:57 WBC 28.9 H RBC Hgb Hct MCHC RDW Plt Count 681 H Seg Neuts % (Manual) 93.0 H Lymphocytes % (Manual) 1.5 L Seg Neutrophils # Man 26.9 H Lymphocytes # (Manual) 0.4 L Monocytes # (Manual) PT INR Heparin Anti-Xa Level POC ABG pH 7.470 H POC ABG pCO2 53.0 H POC ABG pO2 120 H Sodium Potassium 3.0 L Chloride Carbon Dioxide 33 H BUN Creatinine 0.3 L Glucose 116 H POC Glucose Calcium 8.2 L Phosphorus Total Bilirubin Direct Bilirubin Alkaline Phosphatase C-Reactive Protein NT-Pro-B Natriuret Pep Total Protein Albumin Lipase Vitamin B12 Folate Ur Specific [place] Vancomycin Trough Crossmatch 06/29/18 06/29/18 06/29/18 05:58 05:58 12:21 WBC 25.8 H RBC Hgb Hct MCHC RDW Plt Count 661 H Seg Neuts % (Manual) Lymphocytes % (Manual) Seg Neutrophils # Man Lymphocytes # (Manual) Monocytes # (Manual) PT INR Heparin Anti-Xa Level POC ABG pH POC ABG pCO2 POC ABG pO2 Sodium Potassium 2.7 L* Chloride Carbon Dioxide 35 H BUN Creatinine 0.3 L Glucose 132 H POC Glucose 130 H Calcium 8.2 L Phosphorus Total Bilirubin Direct Bilirubin Alkaline Phosphatase C-Reactive Protein NT-Pro-B Natriuret Pep Total Protein Albumin Lipase Vitamin B12 Folate Ur Specific [place] Vancomycin Trough Crossmatch 06/29/18 06/29/18 06/30/18 17:53 18:52 05:02 WBC RBC Hgb Hct MCHC RDW Plt Count Seg Neuts % (Manual) Lymphocytes % (Manual) Seg Neutrophils # Man Lymphocytes # (Manual) Monocytes # (Manual) PT INR Heparin Anti-Xa Level POC ABG pH POC ABG pCO2 POC ABG pO2 Sodium Potassium 3.1 L Chloride Carbon Dioxide 33 H BUN Creatinine 0.3 L Glucose 129 H POC Glucose 109 H 106 H Calcium 8.2 L Phosphorus Total Bilirubin Direct Bilirubin Alkaline Phosphatase C-Reactive Protein NT-Pro-B Natriuret Pep Total Protein Albumin Lipase Vitamin B12 Folate Ur Specific [place] Vancomycin Trough Crossmatch 06/30/18 06/30/18 06/30/18 07:19 07:19 16:17 WBC 23.1 H RBC Hgb Hct MCHC RDW Plt Count 652 H Seg Neuts % (Manual) Lymphocytes % (Manual) Seg Neutrophils # Man Lymphocytes # (Manual) Monocytes # (Manual) PT INR Heparin Anti-Xa Level POC ABG pH POC ABG pCO2 POC ABG pO2 Sodium Potassium 2.8 L* Chloride Carbon Dioxide BUN Creatinine 0.3 L Glucose 109 H POC Glucose Calcium 8.2 L Phosphorus Total Bilirubin Direct Bilirubin Alkaline Phosphatase C-Reactive Protein NT-Pro-B Natriuret Pep Total Protein Albumin Lipase Vitamin B12 Folate Ur Specific [place] Vancomycin Trough < 4.0 L Crossmatch 06/30/18 06/30/18 06/30/18 16:17 16:17 19:00 WBC RBC Hgb Hct MCHC RDW Plt Count Seg Neuts % (Manual) Lymphocytes % (Manual) Seg Neutrophils # Man Lymphocytes # (Manual) Monocytes # (Manual) PT INR Heparin Anti-Xa Level POC ABG pH POC ABG pCO2 POC ABG pO2 Sodium Potassium 3.0 L 3.2 L Chloride Carbon Dioxide BUN Creatinine 0.3 L Glucose 138 H POC Glucose Calcium Phosphorus 2.30 L D Total Bilirubin Direct Bilirubin Alkaline Phosphatase C-Reactive Protein NT-Pro-B Natriuret Pep Total Protein Albumin Lipase Vitamin B12 Folate Ur Specific [place] Vancomycin Trough Crossmatch 07/01/18 07/01/18 07/01/18 04:04 04:04 12:21 WBC 26.3 H RBC Hgb Hct MCHC RDW Plt Count Seg Neuts % (Manual) Lymphocytes % (Manual) Seg Neutrophils # Man Lymphocytes # (Manual) Monocytes # (Manual) PT INR Heparin Anti-Xa Level POC ABG pH POC ABG pCO2 POC ABG pO2 Sodium 147 H Potassium Chloride Carbon Dioxide BUN 22 H Creatinine 0.3 L Glucose 126 H POC Glucose 190 H Calcium Phosphorus Total Bilirubin Direct Bilirubin Alkaline Phosphatase C-Reactive Protein NT-Pro-B Natriuret Pep Total Protein Albumin Lipase Vitamin B12 Folate Ur Specific [place] Vancomycin Trough Crossmatch 07/02/18 07/02/18 07/03/18 04:17 04:17 09:58 WBC 40.2 H* 48.6 H* RBC 3.51 L Hgb Hct MCHC RDW Plt Count Seg Neuts % (Manual) Lymphocytes % (Manual) Seg Neutrophils # Man Lymphocytes # (Manual) Monocytes # (Manual) PT INR Heparin Anti-Xa Level POC ABG pH POC ABG pCO2 POC ABG pO2 Sodium Potassium 3.4 L Chloride Carbon Dioxide 32 H BUN 30 H Creatinine 0.3 L Glucose 166 H POC Glucose Calcium Phosphorus Total Bilirubin Direct Bilirubin Alkaline Phosphatase C-Reactive Protein NT-Pro-B Natriuret Pep Total Protein Albumin Lipase Vitamin B12 Folate Ur Specific [place] Vancomycin Trough Crossmatch 07/03/18 07/03/18 07/04/18 09:58 11:07 05:37 WBC 48.5 H* RBC 3.53 L Hgb Hct MCHC RDW Plt Count 477 H Seg Neuts % (Manual) Lymphocytes % (Manual) Seg Neutrophils # Man Lymphocytes # (Manual) Monocytes # (Manual) PT INR Heparin Anti-Xa Level POC ABG pH POC ABG pCO2 POC ABG pO2 Sodium Potassium 3.5 L Chloride Carbon Dioxide 31 H BUN 33 H Creatinine 0.3 L Glucose 162 H POC Glucose Calcium Phosphorus Total Bilirubin Direct Bilirubin Alkaline Phosphatase C-Reactive Protein 13.20 H NT-Pro-B Natriuret Pep Total Protein Albumin Lipase Vitamin B12 Folate Ur Specific [place] Vancomycin Trough Crossmatch 07/04/18 07/04/18 07/04/18 05:37 17:54 17:54 WBC RBC Hgb Hct MCHC RDW Plt Count Seg Neuts % (Manual) Lymphocytes % (Manual) Seg Neutrophils # Man Lymphocytes # (Manual) Monocytes # (Manual) PT INR Heparin Anti-Xa Level POC ABG pH POC ABG pCO2 POC ABG pO2 Sodium Potassium 3.4 L Chloride Carbon Dioxide 32 H BUN 30 H Creatinine 0.3 L Glucose 146 H POC Glucose Calcium Phosphorus Total Bilirubin Direct Bilirubin Alkaline Phosphatase C-Reactive Protein NT-Pro-B Natriuret Pep Total Protein Albumin Lipase Vitamin B12 Folate Ur Specific [place] Vancomycin Trough Crossmatch See Detail See Detail 07/04/18 07/04/18 07/04/18 19:00 19:00 21:50 WBC RBC Hgb 9.5 L Hct 28.7 L MCHC RDW Plt Count 512 H Seg Neuts % (Manual) Lymphocytes % (Manual) Seg Neutrophils # Man Lymphocytes # (Manual) Monocytes # (Manual) PT 18.7 H INR 1.46 H Heparin Anti-Xa Level POC ABG pH 7.469 H POC ABG pCO2 45.8 H POC ABG pO2 109 H Sodium Potassium Chloride Carbon Dioxide BUN Creatinine Glucose POC Glucose Calcium Phosphorus Total Bilirubin Direct Bilirubin Alkaline Phosphatase C-Reactive Protein NT-Pro-B Natriuret Pep Total Protein Albumin Lipase Vitamin B12 Folate Ur Specific [place] Vancomycin Trough Crossmatch 07/05/18 07/05/18 07/05/18 03:14 03:14 03:14 WBC 36.6 H RBC 3.12 L Hgb 9.1 L Hct 27.5 L MCHC RDW Plt Count 529 H Seg Neuts % (Manual) Lymphocytes % (Manual) Seg Neutrophils # Man Lymphocytes # (Manual) Monocytes # (Manual) PT INR Heparin Anti-Xa Level 0.10 L POC ABG pH POC ABG pCO2 POC ABG pO2 Sodium Potassium Chloride Carbon Dioxide BUN 29 H Creatinine 0.2 L Glucose 149 H POC Glucose Calcium 8.1 L Phosphorus Total Bilirubin Direct Bilirubin Alkaline Phosphatase C-Reactive Protein NT-Pro-B Natriuret Pep Total Protein 4.5 L Albumin 1.6 L Lipase Vitamin B12 Folate Ur Specific [place] Vancomycin Trough Crossmatch 07/05/18 07/05/18 07/05/18 04:45 10:57 10:57 WBC RBC Hgb Hct MCHC RDW Plt Count Seg Neuts % (Manual) Lymphocytes % (Manual) Seg Neutrophils # Man Lymphocytes # (Manual) Monocytes # (Manual) PT INR Heparin Anti-Xa Level < 0.10 L POC ABG pH POC ABG pCO2 50.6 H POC ABG pO2 181 H Sodium Potassium Chloride Carbon Dioxide BUN Creatinine Glucose POC Glucose Calcium Phosphorus Total Bilirubin Direct Bilirubin Alkaline Phosphatase C-Reactive Protein NT-Pro-B Natriuret Pep Total Protein Albumin Lipase Vitamin B12 Folate Ur Specific [place] Vancomycin Trough 38.9 H Crossmatch 07/05/18 07/06/18 07/06/18 18:27 02:00 04:48 WBC RBC Hgb Hct MCHC RDW Plt Count Seg Neuts % (Manual) Lymphocytes % (Manual) Seg Neutrophils # Man Lymphocytes # (Manual) Monocytes # (Manual) PT INR Heparin Anti-Xa Level < 0.10 L 0.23 L POC ABG pH POC ABG pCO2 POC ABG pO2 118 H Sodium Potassium Chloride Carbon Dioxide BUN Creatinine Glucose POC Glucose Calcium Phosphorus Total Bilirubin Direct Bilirubin Alkaline Phosphatase C-Reactive Protein NT-Pro-B Natriuret Pep Total Protein Albumin Lipase Vitamin B12 Folate Ur Specific [place] Vancomycin Trough Crossmatch 07/06/18 07/06/18 07/06/18 05:00 05:00 12:05 WBC 23.1 H RBC 2.50 L Hgb 7.3 L Hct 22.3 L MCHC RDW Plt Count 541 H Seg Neuts % (Manual) Lymphocytes % (Manual) Seg Neutrophils # Man Lymphocytes # (Manual) Monocytes # (Manual) PT INR Heparin Anti-Xa Level 0.14 L POC ABG pH POC ABG pCO2 POC ABG pO2 Sodium Potassium Chloride 109.8 H Carbon Dioxide BUN 27 H Creatinine 0.2 L Glucose 157 H POC Glucose Calcium 7.7 L Phosphorus 1.60 L Total Bilirubin Direct Bilirubin Alkaline Phosphatase C-Reactive Protein NT-Pro-B Natriuret Pep Total Protein 4.5 L Albumin 1.7 L Lipase Vitamin B12 Folate Ur Specific [place] Vancomycin Trough Crossmatch 07/06/18 07/06/18 07/07/18 17:29 19:45 00:17 WBC RBC Hgb Hct MCHC RDW Plt Count Seg Neuts % (Manual) Lymphocytes % (Manual) Seg Neutrophils # Man Lymphocytes # (Manual) Monocytes # (Manual) PT INR Heparin Anti-Xa Level 0.18 L POC ABG pH POC ABG pCO2 POC ABG pO2 Sodium Potassium Chloride Carbon Dioxide BUN Creatinine Glucose POC Glucose 141 H 143 H Calcium Phosphorus Total Bilirubin Direct Bilirubin Alkaline Phosphatase C-Reactive Protein NT-Pro-B Natriuret Pep Total Protein Albumin Lipase Vitamin B12 Folate Ur Specific [place] Vancomycin Trough Crossmatch 07/07/18 07/07/18 07/07/18 02:14 02:14 05:09 WBC RBC Hgb Hct MCHC RDW Plt Count Seg Neuts % (Manual) Lymphocytes % (Manual) Seg Neutrophils # Man Lymphocytes # (Manual) Monocytes # (Manual) PT INR Heparin Anti-Xa Level < 0.10 L POC ABG pH POC ABG pCO2 POC ABG pO2 Sodium Potassium 3.4 L Chloride Carbon Dioxide BUN Creatinine < 0.2 L Glucose 127 H POC Glucose 126 H Calcium 7.6 L Phosphorus 2.10 L D Total Bilirubin Direct Bilirubin Alkaline Phosphatase C-Reactive Protein NT-Pro-B Natriuret Pep Total Protein Albumin Lipase Vitamin B12 Folate Ur Specific [place] Vancomycin Trough Crossmatch 07/07/18 07/07/18 07/07/18 07:08 10:57 11:50 WBC 19.3 H RBC 2.49 L Hgb 7.2 L Hct 22.2 L MCHC RDW Plt Count 517 H Seg Neuts % (Manual) Lymphocytes % (Manual) Seg Neutrophils # Man Lymphocytes # (Manual) Monocytes # (Manual) PT INR Heparin Anti-Xa Level POC ABG pH POC ABG pCO2 POC ABG pO2 Sodium Potassium Chloride Carbon Dioxide BUN Creatinine Glucose POC Glucose 115 H Calcium Phosphorus Total Bilirubin Direct Bilirubin Alkaline Phosphatase C-Reactive Protein NT-Pro-B Natriuret Pep Total Protein Albumin Lipase Vitamin B12 924.8 H Folate Ur Specific [place] Vancomycin Trough Crossmatch 07/07/18 11:50 WBC RBC Hgb Hct MCHC RDW Plt Count Seg Neuts % (Manual) Lymphocytes % (Manual) Seg Neutrophils # Man Lymphocytes # (Manual) Monocytes # (Manual) PT INR Heparin Anti-Xa Level POC ABG pH POC ABG pCO2 POC ABG pO2 Sodium Potassium Chloride Carbon Dioxide BUN Creatinine Glucose POC Glucose Calcium Phosphorus Total Bilirubin Direct Bilirubin Alkaline Phosphatase C-Reactive Protein NT-Pro-B Natriuret Pep Total Protein Albumin Lipase Vitamin B12 Folate 4.92 L Ur Specific [place] Vancomycin Trough Crossmatch
[2018-07-07] MEDS: HEPARIN/ 0.45% NACL-25,000 UNIT/500 ML 25,000 UNIT/500 ML BAG IV SCH (13:33)
[2018-07-07] MEDS: fentaNYL DRIP Premix 2,000 MCG/100 ML BAG IV SCH (14:00)
[2018-07-07 14:38] LABS: Iron 40 ug/dL (37-170); Total Iron Binding Capacity 94 mcg/dL (250-450)
[2018-07-07 15:39] LABS: Hematocrit 35.9 % (30.3-42.9); Hemoglobin 12.1 gm/dl (10.1-14.3)
--- NOTE | 2018-07-07 15:41 | Progress Note ---
Assessment and Plan Assessment and plan: Patient is 58 yo female with Nicotine Dependence, Severe Malnutrition present to ED for evaluation. Patient presented with abdominal pain for 1 week progressively worsening symptoms over the same time frame. Pt states that her abdominal pain is 10/10, generalized, nonradiating, constant, worsened with movement. Pt denies NVD, ingestion of food/water from new or different sources, BRBPR, skin rash, or recent ill contacts. She was seen and evaluated in ED and found to have PSBO complicated by Bowel Perforation, SIRS, and severe malnutrition. Pt admitted to surgical floor. Surgery consulted in ED. Patient was taken to OR urgently. She had exploratory lap. surgeon found Sigmoid diverticulitis with perforation of distal sigmoid colon, purulent peritonitis. Peritoneal lavage and Posey's procedure was done on 06/24. Post-op was doing well, but on 06/28 developed acute resp failure was put on PBIPAP, transferred to ICU. Pulmonology consulted. she was given lasix, she improved BIPAP, discontinue d, placed on HFNC Oxygen and now on oxygen by CA. today has worsening leukocytosis therefore CT Chest/Abd ordered. 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 Patient was also noted to have right lower quadrant not appear viable. And was taken back for exploratory laparotomy. * s/p Exploratory laparotomy, small bowel resection, partial colon resection, temporary abdominal closure with abthera vac 07/04/18, POD 1 and * Exploratory laparotomy, Ezequiel's procedure 06/24/18 * Continues on full ventilatory support * IV heparin infusion, * Plan is to repeat scan in am and possible return to OR for evaluation of remaining bowel * PICC line placed for TPN. * Discussed extensively with patients brother, Sisters and Significant other. 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 Acute hypoxic respiratory failure -oN MECHANICAL VENTILATION Severe enterocolitis Purulent peritonitis Sigmoid diverticulitis with perforation of distal sigmoid colon hypokalemia, severe hyponatremia Moderate malnutrition Nicotine dependence Sepsis- On Cefepime, Fluconazole,flagyl leukocytosis, worsening, WBC 48.6 today Plan S/P Exploratory laparotomy, small bowel resection, partial colon resection, temporary abdominal closure with abthera vac 07/04/18 Continue TPN for now Case management for financail assistance in preparation for discharge although still a going to be determined next week Continue Heparin drip Abdomen left open WITH Temporal closure Status post ex lap, peritoneal lavage, Posey's procedure on 06/24 Electrolytes have been replaced abx per ID. On cefepime, fluconazole, flagyl- PROBABLY WILL NEED PROLONGED DURATION DUE TO SURGERY lasix, oxygen supplement, breathing rx as needed Echo Prior to discharge Full code status discussed with surgeon and ID Physician Family updated. dvt/gi PROPHY The high probability of a clinically significant, sudden or life threatening deterioration of the [GI] system(s) required my full and direct attention, intervention and personal management. The aggregate critical care time was [45] minutes. This time is in addition to time spent performing reported procedures but includes the following: [x] Data Review and interpretation [x] Patient assessment and monitoring of vital signs [x] Documentation [x] Medication orders and management History Interval history: Patient' seen and examined remains on full ventilatory support. underwent further surgical evaluation in the OR, per Surgeon, stable but still critical Hospitalist Physical - Physical exam Narrative exam: Gen: in mild distress on full mechnical ventilatory support HEENT: Normocephalic, atraumatic, oct in place, ett noted Neck: supple, no JVD Heart: S1 and S2 reg, no murmurs, rubs or gallop Lungs: Bilateral crackles less, no wheeze Abd: soft, NT, abthera vac in place, clear drainage noted, osteomy noted. Ext:No edema, no clubbing, no cyanosis Neuro: Awake,alert, oriented on sedation vacation periods, moves all ext, non focal Psych:anxious : Sharif - Constitutional Vitals: Temp Pulse Resp BP Pulse Ox 97.5 F L 120 H 16 113/77 99 07/07/18 12:00 07/07/18 15:15 07/07/18 15:15 07/07/18 15:15 07/07/18 15:15 General appearance: Present: other (intubated but able to nod head and shake head to commands) Results - Labs CBC & Chem 7: 07/08/18 03:40 07/08/18 03:40 Labs: Laboratory Last Values WBC 19.3 K/mm3 (4.5-11.0) H 07/07/18 07:08 RBC 2.49 M/mm3 (3.65-5.03) L 07/07/18 07:08 Hgb 12.1 gm/dl (10.1-14.3) D 07/07/18 15:20 Hct 35.9 % (30.3-42.9) D 07/07/18 15:20 MCV 89 fl (79-97) 07/07/18 07:08 MCH 29 pg (28-32) 07/07/18 07:08 MCHC 33 % (30-34) 07/07/18 07:08 RDW 15.0 % (13.2-15.2) 07/07/18 07:08 Plt Count 489 K/mm3 (140-440) H 07/07/18 15:20 Add Manual Diff Complete 06/29/18 00:57 Total Counted 200 06/29/18 00:57 Seg Neutrophils % [employer] 06/29/18 00:57 Seg Neuts % (Manual) 93.0 % (40.0-70.0) H 06/29/18 00:57 3.5 % 06/29/18 00:57 1.5 % (13.4-35.0) L 06/29/18 00:57 Reactive Lymphs % (Man) 0.5 % 06/29/18 00:57 1.5 % (0.0-7.3) 06/29/18 00:57 0 % (0.0-4.3) 06/29/18 00:57 0 % (0.0-1.8) 06/29/18 00:57 0 % 06/29/18 00:57 0 % 06/29/18 00:57 0 % 06/29/18 00:57 0 % 06/29/18 00:57 Nucleated RBC % Not Reportable 06/29/18 00:57 Seg Neutrophils # Man 26.9 K/mm3 (1.8-7.7) H 06/29/18 00:57 Band Neutrophils # 1.0 K/mm3 06/29/18 00:57 0.4 K/mm3 (1.2-5.4) L 06/29/18 00:57 Abs React Lymphs (Man) 0.1 K/mm3 06/29/18 00:57 0.4 K/mm3 (0.0-0.8) 06/29/18 00:57 0.0 K/mm3 (0.0-0.4) 06/29/18 00:57 0.0 K/mm3 (0.0-0.1) 06/29/18 00:57 0.0 K/mm3 06/29/18 00:57 0.0 K/mm3 06/29/18 00:57 0.0 K/mm3 06/29/18 00:57 Blast Cells # 0.0 K/mm3 06/29/18 00:57 WBC Morphology Not Reportable 06/29/18 00:57 WBC Morphology TNR 06/29/18 00:57 Hypersegmented Neuts Few 06/29/18 00:57 Hyposegmented Neuts Not Reportable 06/29/18 00:57 Hypogranular Neuts Not Reportable 06/29/18 00:57 Not Reportable 06/29/18 00:57 Not Reportable 06/29/18 00:57 Not Reportable 06/29/18 00:57 Not Reportable 06/29/18 00:57 Not Reportable 06/29/18 00:57 Not Reportable 06/29/18 00:57 Appears increased 06/29/18 00:57 Not Reportable 06/29/18 00:57 Plt Clumps, EDTA Not Reportable 06/29/18 00:57 Not Reportable 06/29/18 00:57 Not Reportable 06/29/18 00:57 Not Reportable 06/29/18 00:57 Plt Morphology Comment Not Reportable 06/29/18 00:57 RBC Morphology Not Reportable 06/29/18 00:57 Dimorphic RBCs Not Reportable 06/29/18 00:57 Not Reportable 06/29/18 00:57 Not Reportable 06/29/18 00:57 Not Reportable 06/29/18 00:57 Not Reportable 06/29/18 00:57 Not Reportable 06/29/18 00:57 Not Reportable 06/29/18 00:57 Not Reportable 06/29/18 00:57 Not Reportable 06/29/18 00:57 Not Reportable 06/29/18 00:57 Not Reportable 06/29/18 00:57 Not Reportable 06/29/18 00:57 Not Reportable 06/29/18 00:57 Not Reportable 06/29/18 00:57 Not Reportable 06/29/18 00:57 Not Reportable 06/29/18 00:57 Not Reportable 06/29/18 00:57 Not Reportable 06/29/18 00:57 Not Reportable 06/29/18 00:57 Not Reportable 06/29/18 00:57 Acanthocytes (Spur) Not Reportable 06/29/18 00:57 Rouleaux Not Reportable 06/29/18 00:57 Not Reportable 06/29/18 00:57 Not Reportable 06/29/18 00:57 Not Reportable 06/29/18 00:57 Not Reportable 06/29/18 00:57 Hem Pathologist Commnt No 06/29/18 00:57 PT 18.7 Sec. (12.2-14.9) H 07/04/18 19:00 INR 1.46 (0.87-1.13) H 07/04/18 19:00 APTT 27.4 Sec. (24.2-36.6) 07/07/18 04:44 Heparin Anti-Xa Level < 0.10 U.I./ml (0.3-0.7) L 07/07/18 02:14 POC ABG pH 7.411 (7.35-7.45) 07/07/18 04:24 POC ABG pCO2 43.0 (35-45) 07/07/18 04:24 POC ABG pO2 104 (80-105) 07/07/18 04:24 POC ABG HCO3 27.3 (22-26 mml/L) 07/07/18 04:24 POC ABG Total CO2 29 (23-27mmol/L) 07/07/18 04:24 POC ABG O2 Sat 98 07/07/18 04:24 POC ABG Base Excess 3 ((-2) - (+3)mmol/L) 07/07/18 04:24 28 % 07/07/18 04:24 Sodium 137 mmol/L (137-145) 07/07/18 02:14 Potassium 3.4 mmol/L (3.6-5.0) L 07/07/18 02:14 Chloride 102.9 mmol/L (98-107) 07/07/18 02:14 Carbon Dioxide 28 mmol/L (22-30) 07/07/18 02:14 10 mmol/L 07/07/18 02:14 BUN 14 mg/dL (7-17) 07/07/18 02:14 < 0.2 mg/dL (0.7-1.2) L 07/07/18 02:14 Estimated GFR > 60 ml/min 07/07/18 02:14 70 % 07/07/18 02:14 Glucose 127 mg/dL (65-100) H 07/07/18 02:14 POC Glucose 115 (70-105) H 07/07/18 10:57 Lactic Acid 1.40 mmol/L (0.7-2.0) 07/04/18 21:11 Calcium 7.6 mg/dL (8.4-10.2) L 07/07/18 02:14 Phosphorus 2.10 mg/dL (2.5-4.5) L D 07/07/18 02:14 Magnesium 1.80 mg/dL (1.7-2.3) 07/07/18 02:14 Iron 40 ug/dL (37-170) 07/07/18 11:50 TIBC 94 mcg/dL (250-450) L 07/07/18 11:50 377.8 ng/mL (13.0-400.0) 07/07/18 11:50 0.30 mg/dL (0.1-1.2) 07/06/18 05:00 1.5 mg/dL (0-0.2) H 06/24/18 11:19 0.4 mg/dL 06/24/18 11:19 AST 21 units/L (5-40) 07/06/18 05:00 ALT 16 units/L (7-56) 07/06/18 05:00 99 units/L (35-129) 07/06/18 05:00 13.20 mg/dL (0.00-1.30) H 07/03/18 11:07 NT-Pro-B Natriuret Pep 1572 pg/mL (0-900) H 06/28/18 09:56 4.5 g/dL (6.3-8.2) L 07/06/18 05:00 1.7 g/dL (3.9-5) L 07/06/18 05:00 0.6 % 07/06/18 05:00 Triglycerides 127 mg/dL (2-149) 07/07/18 02:14 8 units/L (13-60) L 06/24/18 11:19 Vitamin B12 924.8 pg/mL (211-911) H 07/07/18 11:50 4.92 ng/mL (7.3-26.0) L 07/07/18 11:50 Na (Yellow) 07/03/18 Unknown Hazy (Clear) 07/03/18 Unknown 6.0 (5.0-7.0) 07/03/18 Unknown Ur Specific [place] 1.023 (1.003-1.030) 07/03/18 Unknown <15 mg/dl mg/dL (Negative) 07/03/18 Unknown Neg mg/dL (Negative) 07/03/18 Unknown Neg mg/dL (Negative) 07/03/18 Unknown Sm (Negative) 07/03/18 Unknown Neg (Negative) 07/03/18 Unknown Neg (Negative) 07/03/18 Unknown < 2.0 mg/dL (<2.0) 07/03/18 Unknown Ur Leukocyte Esterase Neg (Negative) 07/03/18 Unknown 1.0 /HPF (0.0-6.0) 07/03/18 Unknown 3.0 /HPF (0.0-6.0) 07/03/18 Unknown U Epithel Cells (Auto) 7.0 /HPF (0-13.0) 07/03/18 Unknown 1+ /HPF (Negative) 06/24/18 13:00 Few /HPF 07/03/18 Unknown Vancomycin Trough 38.9 ug/mL (5.0-20.0) H 07/05/18 10:57 Blood Type O POSITIVE 07/04/18 17:54 Antibody Screen TNR 07/04/18 17:54 FADY Antibody Screen Negative 07/04/18 17:54 Crossmatch See Detail 07/04/18 17:54 Crossmatch See Detail 07/04/18 17:54 Active Medications - Current Medications Current Medications: Generic Name Dose Route Start Last Admin Trade Name Freq PRN Reason Stop Dose Admin Albuterol 2.5 mg 07/02/18 07:44 Proventil IH Q4HRT PRN Shortness Of Breath Albuterol/Ipratropium 1 ampul 07/02/18 14:00 07/07/18 14:38 Duoneb *Not For Prn Use* IH 1 ampul TIDRT MAURICIO Administration Budesonide 0.5 mg 07/02/18 20:00 07/07/18 11:30 Pulmicort IH 0.5 mg Q12HRT MAURICIO Administration Fentanyl 25 mcg 06/30/18 14:19 Sublimaze IV Q2H PRN Pain, Moderate (4-6) Fentanyl 50 mcg 07/07/18 11:08 07/07/18 11:07 Sublimaze IV 07/07/18 20:00 50 mcg Q5MIN PRN Administration Pain , Severe (7-10) Hydromorphone HCl 0.5 mg 07/07/18 10:43 Dilaudid IV 07/07/18 23:59 Q10MIN PRN Pain , Severe (7-10) Hydrophilic Ointment 1 applic 07/04/18 18:23 Vaseline Lip Therapy TP Q2HR PRN Dry Lips Metronidazole 500 mg in 100 mls @ 100 mls/hr 06/24/18 22:00 07/07/18 05:46 Flagyl 500 Mg/100 Ml IV 100 mls/hr Q8H MAURICIO Administration Protocol Fluconazole 200 mls @ 100 mls/hr 06/26/18 14:00 07/07/18 12:06 Diflucan IV 100 mls/hr Q24HR MAURICIO Administration Protocol Cefepime HCl 2 gm in 100 mls @ 200 mls/hr 06/27/18 14:00 07/07/18 12:06 Maxipime/Ns 2 Gm/100 Ml IV 200 mls/hr Q12HR MAURICIO Administration Protocol Fentanyl Citrate 2,000 mcg in 100 mls @ 2.605 mls/hr 07/04/18 19:00 07/07/18 14:00 Fentanyl Drip Premix IV 3 mcg/kg/hr TITR MAURICIO 7.815 mls/hr Administration Protocol 1 MCG/KG/HR Propofol 1,000 mg in 100 mls @ 1.563 mls/hr 07/04/18 19:00 07/07/18 12:07 Diprivan 10 Mg/Ml IV 30 mcg/kg/min TITR MAURICIO 9.378 mls/hr Administration Protocol 5 MCG/KG/MIN Amino Acids/Electrolytes/Dextrose 1,800 mls @ 75 mls/hr 07/06/18 20:00 07/06/18 20:35 Tpn Adult IV 07/07/18 19:59 75 mls/hr DAILY@[email or web address] MAURICIO Administration Protocol Amino Acids/Electrolytes/Dextrose 1,800 mls @ 75 mls/hr 07/07/18 20:00 Tpn Adult IV 07/08/18 19:59 DAILY@[email or web address] [facility] Protocol Heparin Sodium/Sodium Chloride 25,000 unit in 500 mls @ 15 mls/hr 07/07/18 14:00 07/07/18 13:33 Heparin/ 0.45% Nacl-25,000 Unit/500 Ml IV 1,300 units/hr TITR MAURICIO 26 mls/hr Administration Protocol 750 UNITS/HR Multi-Ingred Cream/Lotion/Oil/Oint 1 applic 07/04/18 18:23 Artificial Tears Ophth Oint OU Q4HR PRN Dry Eye(s) Naloxone HCl 0.1 mg 06/24/18 18:55 Narcan 0.4 Mg/1 Ml IV Q2MIN PRN Res Rate </= 8 or 02 SAT < 92% Nicotine 14 mg 06/25/18 10:00 07/07/18 10:26 Habitrol TD Not Given QDAY [facility] Ondansetron HCl 4 mg 06/24/18 14:00 06/29/18 04:00 Zofran IV 4 mg Q8H PRN Administration Nausea And Vomiting Pantoprazole Sodium 40 mg 07/04/18 22:00 07/07/18 12:06 Protonix IV 40 mg BID [facility] Administration Sodium Chloride 10 ml 06/24/18 22:00 07/07/18 10:24 Sodium Chloride Flush Syringe 10 Ml IV Not Given BID MAURICIO Sodium Chloride 10 ml 06/24/18 14:00 Sodium Chloride Flush Syringe 10 Ml IV PRN PRN LINE FLUSH Sodium Chloride 5 ml 07/04/18 18:23 Nacl 0.9% 500 Ml IV DIRECT PRN [employer] [employer] Nutrition/Malnutrition Assess - Dietary Evaluation Nutrition/Malnutrition Findings: Nutrition Notes Start: 06/30/18 16:45 Freq: Status: Active Protocol: Document 07/07/18 09:37 LP (Rec: 07/07/18 09:45 LP [id number]) Nutrition Notes Initial or Follow up Reassessment Other Pertinent Diagnosis Severe enterocolitis, peritonitis, sigmoid diverticulitis s/p exp lap Current Diet PPN at 75ml/hr Labs/Tests Na 137 K 3.4 Phos 2.1 Pertinent Medications Reviewed Height 5 ft 3 in Weight 52.1 kg [place] Body Weight (kg) 52.27 BMI 20.3 Subjective/Other Information Pt in OR at time of visit. Percent of energy/protein needs met: 50%/100% Burn Absent Trauma Absent #2 Nutrition Diagnosis Inadequate oral intake Diagnosis Progress(for reassessment Continues documentation) #1 Nutrition Diagnosis Increased nutrient needs ( specify in comment below) Diagnosis Progress(for reassessment Continues documentation) Is patient on ventilator? Yes Is Patient Ambulatory and/or Out of Bed No REE-([facility]-confined to bed) 1289.088 Kcal/Kg value to use for calculation 33 Approximate Energy Requirements Using 1719 kcal/Kg Calculation Used for Recommendations Kcal/kg Additional Notes Pro needs 1.2-2/k-104g/ day Fluid needs 1ml/kcal Nutrition Intervention Change Diet Order: CPN Nutrition Support: Change to CPN at 75ml/hr: Na 149mEq, 81mEq K, 5mEq Mg, 32mmol phos, MVI, thiamine Osmolality: 1133 Kcal 760 Protein (gm) 105 Carbohydrates (gm) 100 Fat (gm) 0 Fluid (mL) 1,800 Fiber (gm) 0 Goal #1 Meet at least 80% of kcal and protein needs as best as possible Anticipated Discharge Needs: home TPN Follow-Up By: 07/08/18 Additional Comments Labs in AM: BMP, Mg, Phos
[2018-07-07 15:48] LABS: INR 1.13 (0.87-1.13)
[2018-07-07 15:49] LABS: Partial Thromboplastin Time 42.2 Sec. (24.2-36.6)
[2018-07-07] MEDS: SODIUM CHLORIDE FLUSH SYRINGE 10 ML IV PRN (16:07)
--- NOTE | 2018-07-07 16:29 | Progress Note ---
Assessment and Plan Cultures: 06/26/2018 Blood culture no growth 07/03/2018 Blood culture no growth so far 07/04/2018 Sputum usual respiratory kait Assessment: 58 y/o female with history of HTN, tobacco dependence admitted on 06/24/2018 due to a week history of severe abdominal pain, constipation and nausea. 1) Severe sepsis: Etiology most likely peritonitis from diverticular perforation and leukomoid reaction likely due to bowel ischemia. 2) Acute fecal peritonitis from diverticular perforation/abscess: went to OR on 06/24/2018 for Exploratory laparotomy, Ezequiel's for perforated sigmoid diver ticulitis with purulent peritonitis. 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 No pulsation in SMA, small bowel resection, partial colon resection, temporary abdominal closure with abthera vac on 07/04. Now again to OR on 07/07/2018, was found to have an 8 cm area of necrotic small bowel. Plans for re-trip to OR on Tuesday. 3) Bilateral pneumonia: ?aspiration v/s HAP on cefepime and vancomycin. CTA showed scattered infiltrates identified in both lungs, this is most prominent in the right lower lung, slight bilateral effusions, no evidence of pulmonary arterial emboli. 4) Acute hypoxemic resp failure: currently on vent following OR trip. 5) Acute mesenteric ischemia with SMA and SMV thrombus and Distal aortic thrombus: unclear etiology Recommendations: - continue fluconazole 400 mg D 12 of 14 - continue Cefepime and Flagyl D 14 today, but may need to be extended due to ischemic bowel with plans for re-trip to OR on Tuesday Kylie Evans MD [facility] C: [phone] O: [phone] F: [phone] Subjective Date of service: 07/07/18 Principal diagnosis: small bowel ischemiaperitonitis/penumonia Interval history: Went to OR, found to have another 8 cm of necrotic small bowel. OR note reviewed. Currently stable, not on any pressors. No fever. Discussed with RN. Objective - Exam Narrative Exam: Physical Exam: Constitutional: awake, alert, intubated Head, Ears, Nose: Normocephalic, atraumatic. External ears, nose normal Eyes: Conjunctivae/corneas clear. No icterus. No ptosis. Neck: intubated Oral: intubated Cardiovascular: S1, S2 normal. Respiratory: Good air entry, clear to auscultation bilaterally GI: soft, colostomy +, midline woundVAC, bowel sounds absent. Musculoskeletal: No pedal edema, no cyanosis. Skin: No rash or abscess Hem/Lymphatic: No palpable cervical or supraclavicular nodes. No lymphangitis Psych: no agitation Neurological: awake, intubated, on vent. - Constitutional Vitals: Vital Signs Temp Pulse Resp BP Pulse Ox 97.5 F L 120 H 16 113/77 99 07/07/18 12:00 07/07/18 15:15 07/07/18 15:15 07/07/18 15:15 07/07/18 15:15 Temperature -Last 24 Hours Temperature 97.5 F Temperature 98.2 F Temperature 98.7 F Temperature 98.4 F Temperature 98.6 F Temperature 98.9 F Temperature 99.2 F Temperature 98.4 F - Labs CBC & Chem 7: 07/07/18 15:20 07/07/18 02:14 Labs: Abnormal lab results 07/04/18 07/04/18 07/06/18 Range/Units 17:54 17:54 17:29 WBC (4.5-11.0) K/mm3 RBC (3.65-5.03) M/mm3 Hgb (10.1-14.3) gm/dl Hct (30.3-42.9) % Plt Count (140-440) K/mm3 PT (12.2-14.9) Sec. APTT (24.2-36.6) Sec. Heparin Anti-Xa Level (0.3-0.7) U.I./ml Potassium (3.6-5.0) mmol/L Creatinine (0.7-1.2) mg/dL Glucose (65-100) mg/dL POC Glucose 141 H (70-105) Calcium (8.4-10.2) mg/dL Phosphorus (2.5-4.5) mg/dL TIBC (250-450) mcg/dL Vitamin B12 (211-911) pg/mL Folate (7.3-26.0) ng/mL Crossmatch See Detail See Detail 07/06/18 07/07/18 07/07/18 Range/Units 19:45 00:17 02:14 WBC (4.5-11.0) K/mm3 RBC (3.65-5.03) M/mm3 Hgb (10.1-14.3) gm/dl Hct (30.3-42.9) % Plt Count (140-440) K/mm3 PT (12.2-14.9) Sec. APTT (24.2-36.6) Sec. Heparin Anti-Xa Level 0.18 L (0.3-0.7) U.I./ml Potassium 3.4 L (3.6-5.0) mmol/L Creatinine < 0.2 L (0.7-1.2) mg/dL Glucose 127 H (65-100) mg/dL POC Glucose 143 H (70-105) Calcium 7.6 L (8.4-10.2) mg/dL Phosphorus 2.10 L D (2.5-4.5) mg/dL TIBC (250-450) mcg/dL Vitamin B12 (211-911) pg/mL Folate (7.3-26.0) ng/mL Crossmatch 07/07/18 07/07/18 07/07/18 Range/Units 02:14 05:09 07:08 WBC 19.3 H (4.5-11.0) K/mm3 RBC 2.49 L (3.65-5.03) M/mm3 Hgb 7.2 L (10.1-14.3) gm/dl Hct 22.2 L (30.3-42.9) % Plt Count 517 H (140-440) K/mm3 PT (12.2-14.9) Sec. APTT (24.2-36.6) Sec. Heparin Anti-Xa Level < 0.10 L (0.3-0.7) U.I./ml Potassium (3.6-5.0) mmol/L Creatinine (0.7-1.2) mg/dL Glucose (65-100) mg/dL POC Glucose 126 H (70-105) Calcium (8.4-10.2) mg/dL Phosphorus (2.5-4.5) mg/dL TIBC (250-450) mcg/dL Vitamin B12 (211-911) pg/mL Folate (7.3-26.0) ng/mL Crossmatch 07/07/18 07/07/18 07/07/18 Range/Units 10:57 11:50 11:50 WBC (4.5-11.0) K/mm3 RBC (3.65-5.03) M/mm3 Hgb (10.1-14.3) gm/dl Hct (30.3-42.9) % Plt Count (140-440) K/mm3 PT (12.2-14.9) Sec. APTT (24.2-36.6) Sec. Heparin Anti-Xa Level (0.3-0.7) U.I./ml Potassium (3.6-5.0) mmol/L Creatinine (0.7-1.2) mg/dL Glucose (65-100) mg/dL POC Glucose 115 H (70-105) Calcium (8.4-10.2) mg/dL Phosphorus (2.5-4.5) mg/dL TIBC 94 L (250-450) mcg/dL Vitamin B12 924.8 H (211-911) pg/mL Folate (7.3-26.0) ng/mL Crossmatch 07/07/18 07/07/18 07/07/18 Range/Units 11:50 15:20 15:20 WBC (4.5-11.0) K/mm3 RBC (3.65-5.03) M/mm3 Hgb (10.1-14.3) gm/dl Hct (30.3-42.9) % Plt Count 489 H (140-440) K/mm3 PT 15.2 H (12.2-14.9) Sec. APTT 42.2 H (24.2-36.6) Sec. Heparin Anti-Xa Level (0.3-0.7) U.I./ml Potassium (3.6-5.0) mmol/L Creatinine (0.7-1.2) mg/dL Glucose (65-100) mg/dL POC Glucose (70-105) Calcium (8.4-10.2) mg/dL Phosphorus (2.5-4.5) mg/dL TIBC (250-450) mcg/dL Vitamin B12 (211-911) pg/mL Folate 4.92 L (7.3-26.0) ng/mL Crossmatch
[2018-07-07] MEDS ORDERED: TPN ADULT 1,800 ML IV SCH (20:00)
[2018-07-07] MEDS ORDERED: HEPARIN 10,000 UNITS/10 ML IV ONE (20:55)
[2018-07-08] MEDS: DIPRIVAN 10 MG/ML 1,000 MG/100 ML BOTTLE IV SCH (02:03)
[2018-07-08 03:53] LABS: Hematocrit 33.8 % (30.3-42.9); Hemoglobin 11.2 gm/dl (10.1-14.3)
[2018-07-08 04:22] LABS: BUN/Creatinine Ratio 85; Blood Urea Nitrogen 17 mg/dL (7-17); Calcium 7.9 mg/dL (8.4-10.2); Hemolysis Index 6
--- NOTE | 2018-07-08 05:06 | XRay Report ---
PROCEDURE: XR CHEST 1V AP TECHNIQUE: Chest radiograph single view. HISTORY: follow up respiratory failure COMPARISONS: July 07 . FINDINGS: ET tube, right side PICC line and NG tube remain in place. No new areas of airspace consolidation or pleural effusions. No significant interval change. IMPRESSION: No significant interval change since the prior radiograph. This document is electronically signed by Good Carmona MD., July 08 2018 06:04:57 AM ET
[2018-07-08] MEDS: fentaNYL DRIP Premix 2,000 MCG/100 ML BAG IV SCH ×2 (05:27→18:15)
[2018-07-08] MEDS: FLAGYL 500 MG/100 ML 500 MG/100 ML BAG IV SCH ×3 (05:30→22:05)
[2018-07-08] MEDS: HEPARIN/ 0.45% NACL-25,000 UNIT/500 ML 25,000 UNIT/500 ML BAG IV SCH (06:45)
[2018-07-08] MEDS: PULMICORT IH SCH ×2 (07:14→19:32)
[2018-07-08] MEDS: DUONEB *Not for PRN Use IH SCH ×3 (07:14→19:32)
--- NOTE | 2018-07-08 09:41 | Progress Note ---
Assessment and Plan Would continue heparin drip as tolerated. Surgical events noted. 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 Subjective Date of service: 07/08/18 Principal diagnosis: small bowel ischemiaperitonitis/penumonia Interval history: Patient on respiratory trial without examination. The patient is on CPAP and alert and following commands. She has palpable bilateral pedal pulses. Objective - Constitutional Vitals: Vital Signs - 12hr 07/07/18 07/07/18 07/07/18 21:45 22:00 22:15 Temperature Pulse Rate 125 H 121 H 117 H Pulse Rate [ Anterior Bilateral Throughout] Pulse Rate [ 121 H From Monitor] Respiratory 17 17 16 Rate Respiratory Rate [Anterior Bilateral Throughout] Blood Pressure 103/67 106/67 111/61 O2 Sat by Pulse 96 98 97 Oximetry 07/07/18 07/07/18 07/07/18 22:30 22:45 23:00 Temperature Pulse Rate 119 H 117 H 116 H Pulse Rate [ Anterior Bilateral Throughout] Pulse Rate [ From Monitor] Respiratory 19 21 22 Rate Respiratory Rate [Anterior Bilateral Throughout] Blood Pressure 107/68 105/61 100/61 O2 Sat by Pulse 98 98 Oximetry 07/07/18 07/07/18 07/07/18 23:15 23:30 23:45 Temperature Pulse Rate 113 H 117 H 115 H Pulse Rate [ Anterior Bilateral Throughout] Pulse Rate [ From Monitor] Respiratory 18 17 17 Rate Respiratory Rate [Anterior Bilateral Throughout] Blood Pressure 107/63 106/54 106/57 O2 Sat by Pulse 98 97 97 Oximetry 07/08/18 07/08/18 07/08/18 00:00 00:04 00:15 Temperature 98.5 F Pulse Rate 111 H 112 H 111 H Pulse Rate [ Anterior Bilateral Throughout] Pulse Rate [ 112 H From Monitor] Respiratory 20 22 Rate Respiratory Rate [Anterior Bilateral Throughout] Blood Pressure 104/62 104/62 108/60 O2 Sat by Pulse 97 112 H 96 Oximetry 07/08/18 07/08/18 07/08/18 00:30 00:45 01:00 Temperature Pulse Rate 109 H 109 H 108 H Pulse Rate [ Anterior Bilateral Throughout] Pulse Rate [ From Monitor] Respiratory 22 20 22 Rate Respiratory Rate [Anterior Bilateral Throughout] Blood Pressure 100/62 97/56 102/61 O2 Sat by Pulse 96 98 Oximetry 07/08/18 07/08/18 07/08/18 01:15 01:30 01:45 Temperature Pulse Rate 110 H 109 H 107 H Pulse Rate [ Anterior Bilateral Throughout] Pulse Rate [ From Monitor] Respiratory 22 22 20 Rate Respiratory Rate [Anterior Bilateral Throughout] Blood Pressure 99/63 97/47 98/56 O2 Sat by Pulse 97 97 98 Oximetry 07/08/18 07/08/18 07/08/18 02:00 02:15 02:30 Temperature Pulse Rate 113 H 112 H 111 H Pulse Rate [ Anterior Bilateral Throughout] Pulse Rate [ From Monitor] Respiratory 12 21 20 Rate Respiratory Rate [Anterior Bilateral Throughout] Blood Pressure 106/72 103/67 99/62 O2 Sat by Pulse 98 95 96 Oximetry 07/08/18 07/08/18 07/08/18 02:45 03:00 03:15 Temperature Pulse Rate 109 H 107 H 107 H Pulse Rate [ Anterior Bilateral Throughout] Pulse Rate [ From Monitor] Respiratory 20 24 20 Rate Respiratory Rate [Anterior Bilateral Throughout] Blood Pressure 102/67 105/63 112/56 O2 Sat by Pulse 96 97 96 Oximetry 07/08/18 07/08/18 07/08/18 03:30 03:45 04:00 Temperature 98.9 F Pulse Rate 106 H 112 H 108 H Pulse Rate [ Anterior Bilateral Throughout] Pulse Rate [ 108 H From Monitor] Respiratory 21 15 19 Rate Respiratory Rate [Anterior Bilateral Throughout] Blood Pressure 100/66 105/63 119/65 O2 Sat by Pulse 97 97 97 Oximetry 07/08/18 07/08/18 07/08/18 04:15 04:30 04:45 Temperature Pulse Rate 109 H 106 H 105 H Pulse Rate [ Anterior Bilateral Throughout] Pulse Rate [ From Monitor] Respiratory 19 21 19 Rate Respiratory Rate [Anterior Bilateral Throughout] Blood Pressure 102/64 97/64 105/64 O2 Sat by Pulse 97 96 96 Oximetry 07/08/18 07/08/18 07/08/18 05:00 05:15 05:30 Temperature Pulse Rate 101 H 102 H 103 H Pulse Rate [ Anterior Bilateral Throughout] Pulse Rate [ From Monitor] Respiratory 21 18 18 Rate Respiratory Rate [Anterior Bilateral Throughout] Blood Pressure 101/61 109/61 105/64 O2 Sat by Pulse 97 97 98 Oximetry 07/08/18 07/08/18 07/08/18 05:45 06:00 06:15 Temperature Pulse Rate 102 H 94 H 110 H Pulse Rate [ Anterior Bilateral Throughout] Pulse Rate [ 90 From Monitor] Respiratory 18 18 19 Rate Respiratory Rate [Anterior Bilateral Throughout] Blood Pressure 103/61 105/62 105/62 O2 Sat by Pulse 97 97 98 Oximetry 07/08/18 07/08/18 07/08/18 06:18 06:30 06:45 Temperature Pulse Rate 106 H 104 H 105 H Pulse Rate [ Anterior Bilateral Throughout] Pulse Rate [ From Monitor] Respiratory 18 18 Rate Respiratory Rate [Anterior Bilateral Throughout] Blood Pressure 107/68 108/62 102/61 O2 Sat by Pulse 105 H 99 98 Oximetry 07/08/18 07/08/18 07/08/18 07:00 07:14 08:00 Temperature 97.0 F L Pulse Rate 103 H 100 H Pulse Rate [ 98 H Anterior Bilateral Throughout] Pulse Rate [ From Monitor] Respiratory 18 Rate Respiratory 18 Rate [Anterior Bilateral Throughout] Blood Pressure 109/61 111/63 O2 Sat by Pulse 99 98 Oximetry General appearance: Present: no acute distress, other (intubated) - EENT Eyes: EOM intact ENT: hearing intact - Neck Neck: normal ROM - Respiratory Respiratory effort: other (intubated) - Breasts Breasts: deferred - Cardiovascular Rhythm: regular (tachycardic) Extremities: no ischemia, pulses intact - Gastrointestinal General gastrointestinal: Present: deferred - Genitourinary Female genitourinary: deferred - Labs CBC & Chem 7: 07/08/18 03:40 07/08/18 03:40 Labs: Abnormal lab results 07/04/18 07/04/18 07/07/18 Range/Units 17:54 17:54 10:57 Plt Count (140-440) K/mm3 PT (12.2-14.9) Sec. APTT (24.2-36.6) Sec. Heparin Anti-Xa Level (0.3-0.7) U.I./ml Creatinine (0.7-1.2) mg/dL Glucose (65-100) mg/dL POC Glucose 115 H (70-105) Calcium (8.4-10.2) mg/dL TIBC (250-450) mcg/dL Vitamin B12 (211-911) pg/mL Folate (7.3-26.0) ng/mL Crossmatch See Detail See Detail 07/07/18 07/07/18 07/07/18 Range/Units 11:50 11:50 11:50 Plt Count (140-440) K/mm3 PT (12.2-14.9) Sec. APTT (24.2-36.6) Sec. Heparin Anti-Xa Level (0.3-0.7) U.I./ml Creatinine (0.7-1.2) mg/dL Glucose (65-100) mg/dL POC Glucose (70-105) Calcium (8.4-10.2) mg/dL TIBC 94 L (250-450) mcg/dL Vitamin B12 924.8 H (211-911) pg/mL Folate 4.92 L (7.3-26.0) ng/mL Crossmatch 07/07/18 07/07/18 07/07/18 Range/Units 15:20 15:20 18:16 Plt Count 489 H (140-440) K/mm3 PT 15.2 H (12.2-14.9) Sec. APTT 42.2 H (24.2-36.6) Sec. Heparin Anti-Xa Level (0.3-0.7) U.I./ml Creatinine (0.7-1.2) mg/dL Glucose (65-100) mg/dL POC Glucose 125 H (70-105) Calcium (8.4-10.2) mg/dL TIBC (250-450) mcg/dL Vitamin B12 (211-911) pg/mL Folate (7.3-26.0) ng/mL Crossmatch 07/07/18 07/08/18 07/08/18 Range/Units 20:04 01:07 03:40 Plt Count 477 H (140-440) K/mm3 PT (12.2-14.9) Sec. APTT (24.2-36.6) Sec. Heparin Anti-Xa Level < 0.10 L (0.3-0.7) U.I./ml Creatinine (0.7-1.2) mg/dL Glucose (65-100) mg/dL POC Glucose 132 H (70-105) Calcium (8.4-10.2) mg/dL TIBC (250-450) mcg/dL Vitamin B12 (211-911) pg/mL Folate (7.3-26.0) ng/mL Crossmatch 07/08/18 07/08/18 Range/Units 03:40 06:16 Plt Count (140-440) K/mm3 PT (12.2-14.9) Sec. APTT (24.2-36.6) Sec. Heparin Anti-Xa Level (0.3-0.7) U.I./ml Creatinine < 0.2 L (0.7-1.2) mg/dL Glucose 161 H (65-100) mg/dL POC Glucose 143 H (70-105) Calcium 7.9 L (8.4-10.2) mg/dL TIBC (250-450) mcg/dL Vitamin B12 (211-911) pg/mL Folate (7.3-26.0) ng/mL Crossmatch Medications & Allergies - Medications Allergies/Adverse Reactions: Allergies No Known Allergies Allergy (Unverified 06/24/18 10:41) Home Medications: Home Medications Medication Instructions Recorded Confirmed Last Taken Type No Known Home Medications [No 06/27/18 06/27/18 Unknown History Reported Home Medications] Active Medications: Generic Name Dose Route Start Last Admin Trade Name Freq PRN Reason Stop Dose Admin Albuterol 2.5 mg 07/02/18 07:44 Proventil IH Q4HRT PRN Shortness Of Breath Albuterol/Ipratropium 1 ampul 07/02/18 14:00 07/08/18 07:14 Duoneb *Not For Prn Use* IH 1 ampul TIDRT MAURICIO Administration Budesonide 0.5 mg 07/02/18 20:00 07/08/18 07:14 Pulmicort IH 0.5 mg Q12HRT MAURICIO Administration Fentanyl 25 mcg 06/30/18 14:19 Sublimaze IV Q2H PRN Pain, Moderate (4-6) Hydrophilic Ointment 1 applic 07/04/18 18:23 Vaseline Lip Therapy TP Q2HR PRN Dry Lips Metronidazole 500 mg in 100 mls @ 100 mls/hr 06/24/18 22:00 07/08/18 05:30 Flagyl 500 Mg/100 Ml IV 100 mls/hr Q8H MAURICIO Administration Protocol Fluconazole 200 mls @ 100 mls/hr 06/26/18 14:00 07/07/18 12:06 Diflucan IV 100 mls/hr Q24HR [facility] Administration Protocol Cefepime HCl 2 gm in 100 mls @ 200 mls/hr 06/27/18 14:00 07/07/18 21:17 Maxipime/Ns 2 Gm/100 Ml IV 200 mls/hr Q12HR [facility] Administration Protocol Fentanyl Citrate 2,000 mcg in 100 mls @ 2.605 mls/hr 07/04/18 19:00 07/08/18 05:27 Fentanyl Drip Premix IV 3 mcg/kg/hr TITR MAURICIO 7.815 mls/hr Administration Protocol 1 MCG/KG/HR Propofol 1,000 mg in 100 mls @ 1.563 mls/hr 07/04/18 19:00 07/07/18 16:22 Diprivan 10 Mg/Ml IV 20 mcg/kg/min TITR MAURICIO 6.252 mls/hr Titration Protocol 5 MCG/KG/MIN Amino Acids/Electrolytes/Dextrose 1,800 mls @ 75 mls/hr 07/07/18 20:00 07/07/18 21:18 Tpn Adult IV 07/08/18 19:59 75 mls/hr DAILY@2000 [facility] Administration Protocol Heparin Sodium/Sodium Chloride 25,000 unit in 500 mls @ 15 mls/hr 07/07/18 14:00 07/08/18 06:45 Heparin/ 0.45% Nacl-25,000 Unit/500 Ml IV 1,450 units/hr TITR MAURICIO 29 mls/hr Administration Protocol 750 UNITS/HR Multi-Ingred Cream/Lotion/Oil/Oint 1 applic 07/04/18 18:23 Artificial Tears Ophth Oint OU Q4HR PRN Dry Eye(s) Naloxone HCl 0.1 mg 06/24/18 18:55 Narcan 0.4 Mg/1 Ml IV Q2MIN PRN Res Rate </= 8 or 02 SAT < 92% Nicotine 14 mg 06/25/18 10:00 07/07/18 10:26 Habitrol TD Not Given QDAY [facility] Ondansetron HCl 4 mg 06/24/18 14:00 06/29/18 04:00 Zofran IV 4 mg Q8H PRN Administration Nausea And Vomiting Pantoprazole Sodium 40 mg 07/04/18 22:00 07/07/18 21:17 Protonix IV 40 mg BID MAURICIO Administration Sodium Chloride 10 ml 06/24/18 22:00 07/07/18 10:24 Sodium Chloride Flush Syringe 10 Ml IV Not Given BID MAURICIO Sodium Chloride 10 ml 06/24/18 14:00 07/07/18 16:07 Sodium Chloride Flush Syringe 10 Ml IV 10 ml PRN PRN Administration LINE FLUSH Sodium Chloride 5 ml 07/04/18 18:23 Nacl 0.9% 500 Ml IV DIRECT PRN [employer]ERIAL [employer]
--- NOTE | 2018-07-08 09:55 | Progress Note ---
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 The report from surgery today more optimistic with more viable small bowel seen, per surgeon - re-exploratory laparotomy, prior small bowel resection, partial colon resection, temporary abdominal closure with abthera vac s/p acute bowel perforation, diverticulitis. Leukemoid reaction after the above.improving Suspected embolic triggered bowel ischemia Post op acute respiratory failure secondary to volume overload. On vent.ABG adequate COPD Hypokalemia Recommendations Potassium as needed, monitor electrolytes Continue heparin. H&H stable at this point I initiate SBT this morning. Patient tolerating well pressure support 12/6 cm H2O. Plan is to exercise patient daily, but hold extubation until Tuesday after surgery Antibiotics per ID. She is tolerating very well minimal sedation with propofol/fentanyl. Propofol is on hold during SBT, we'll continue with same strategy and allow the patient to rest overnight Maintain extubation precautions Daily morning sedation vacation. Discussed extubation planning with surgery, pl an is to keep her on antihypertensive support until Tuesday, when she will get new exploratory surgery DVT prophylaxis Nutritional support, PICC line in place Discussed with staff, family in detail. Critical care time was 31 minutes of [id number] evaluation and coordination of care Subjective Date of service: 07/08/18 Principal diagnosis: small bowel ischemiaperitonitis/penumonia Interval history: No shortness of breath, intubated Objective Vital Signs - 12hr 07/07/18 07/07/18 07/07/18 22:00 22:15 22:30 Temperature Pulse Rate 121 H 117 H 119 H Pulse Rate [ Anterior Bilateral Throughout] Pulse Rate [ 121 H From Monitor] Respiratory 17 16 19 Rate Respiratory Rate [Anterior Bilateral Throughout] Blood Pressure 106/67 111/61 107/68 O2 Sat by Pulse 98 97 Oximetry 07/07/18 07/07/18 07/07/18 22:45 23:00 23:15 Temperature Pulse Rate 117 H 116 H 113 H Pulse Rate [ Anterior Bilateral Throughout] Pulse Rate [ From Monitor] Respiratory 21 22 18 Rate Respiratory Rate [Anterior Bilateral Throughout] Blood Pressure 105/61 100/61 107/63 O2 Sat by Pulse 98 98 98 Oximetry 07/07/18 07/07/18 07/08/18 23:30 23:45 00:00 Temperature 98.5 F Pulse Rate 117 H 115 H 111 H Pulse Rate [ Anterior Bilateral Throughout] Pulse Rate [ 112 H From Monitor] Respiratory 17 17 20 Rate Respiratory Rate [Anterior Bilateral Throughout] Blood Pressure 106/54 106/57 104/62 O2 Sat by Pulse 97 97 97 Oximetry 07/08/18 07/08/18 07/08/18 00:04 00:15 00:30 Temperature Pulse Rate 112 H 111 H 109 H Pulse Rate [ Anterior Bilateral Throughout] Pulse Rate [ From Monitor] Respiratory 22 22 Rate Respiratory Rate [Anterior Bilateral Throughout] Blood Pressure 104/62 108/60 100/62 O2 Sat by Pulse 112 H 96 96 Oximetry 07/08/18 07/08/18 07/08/18 00:45 01:00 01:15 Temperature Pulse Rate 109 H 108 H 110 H Pulse Rate [ Anterior Bilateral Throughout] Pulse Rate [ From Monitor] Respiratory 20 22 22 Rate Respiratory Rate [Anterior Bilateral Throughout] Blood Pressure 97/56 102/61 99/63 O2 Sat by Pulse 98 97 Oximetry 07/08/18 07/08/18 07/08/18 01:30 01:45 02:00 Temperature Pulse Rate 109 H 107 H 113 H Pulse Rate [ Anterior Bilateral Throughout] Pulse Rate [ From Monitor] Respiratory 22 20 12 Rate Respiratory Rate [Anterior Bilateral Throughout] Blood Pressure 97/47 98/56 106/72 O2 Sat by Pulse 97 98 98 Oximetry 07/08/18 07/08/18 07/08/18 02:15 02:30 02:45 Temperature Pulse Rate 112 H 111 H 109 H Pulse Rate [ Anterior Bilateral Throughout] Pulse Rate [ From Monitor] Respiratory 21 20 20 Rate Respiratory Rate [Anterior Bilateral Throughout] Blood Pressure 103/67 99/62 102/67 O2 Sat by Pulse 95 96 96 Oximetry 07/08/18 07/08/18 07/08/18 03:00 03:15 03:30 Temperature Pulse Rate 107 H 107 H 106 H Pulse Rate [ Anterior Bilateral Throughout] Pulse Rate [ From Monitor] Respiratory 24 20 21 Rate Respiratory Rate [Anterior Bilateral Throughout] Blood Pressure 105/63 112/56 100/66 O2 Sat by Pulse 97 96 97 Oximetry 07/08/18 07/08/18 07/08/18 03:45 04:00 04:15 Temperature 98.9 F Pulse Rate 112 H 108 H 109 H Pulse Rate [ Anterior Bilateral Throughout] Pulse Rate [ 108 H From Monitor] Respiratory 15 19 19 Rate Respiratory Rate [Anterior Bilateral Throughout] Blood Pressure 105/63 119/65 102/64 O2 Sat by Pulse 97 97 97 Oximetry 07/08/18 07/08/18 07/08/18 04:30 04:45 05:00 Temperature Pulse Rate 106 H 105 H 101 H Pulse Rate [ Anterior Bilateral Throughout] Pulse Rate [ From Monitor] Respiratory 21 19 21 Rate Respiratory Rate [Anterior Bilateral Throughout] Blood Pressure 97/64 105/64 101/61 O2 Sat by Pulse 96 96 97 Oximetry 07/08/18 07/08/18 07/08/18 05:15 05:30 05:45 Temperature Pulse Rate 102 H 103 H 102 H Pulse Rate [ Anterior Bilateral Throughout] Pulse Rate [ From Monitor] Respiratory 18 18 18 Rate Respiratory Rate [Anterior Bilateral Throughout] Blood Pressure 109/61 105/64 103/61 O2 Sat by Pulse 97 98 97 Oximetry 07/08/18 07/08/18 07/08/18 06:00 06:15 06:18 Temperature Pulse Rate 94 H 110 H 106 H Pulse Rate [ Anterior Bilateral Throughout] Pulse Rate [ 90 From Monitor] Respiratory 18 19 Rate Respiratory Rate [Anterior Bilateral Throughout] Blood Pressure 105/62 105/62 107/68 O2 Sat by Pulse 97 98 105 H Oximetry 07/08/18 07/08/18 07/08/18 06:30 06:45 07:00 Temperature Pulse Rate 104 H 105 H 103 H Pulse Rate [ Anterior Bilateral Throughout] Pulse Rate [ From Monitor] Respiratory 18 18 18 Rate Respiratory Rate [Anterior Bilateral Throughout] Blood Pressure 108/62 102/61 109/61 O2 Sat by Pulse 99 98 99 Oximetry 07/08/18 07/08/18 07:14 08:00 Temperature 97.0 F L Pulse Rate 100 H Pulse Rate [ 98 H Anterior Bilateral Throughout] Pulse Rate [ From Monitor] Respiratory Rate Respiratory 18 Rate [Anterior Bilateral Throughout] Blood Pressure 111/63 O2 Sat by Pulse 98 Oximetry Constitutional: no acute distress, alert Eyes: non-icteric ENT: oropharynx moist, other (ETT in position) Neck: supple, no JVD Effort: normal Ascultation: Bilateral: clear, diminished breath sounds Percussion: Bilateral: not dull Tactile fremitus: Bilateral: normal Cardiovascular: regular rate and rhythm Gastrointestinal: hypoactive bowel sounds, tender, other (mildly distended,open wound covered exploratory lab,colostomy) Integumentary: normal Extremities: no cyanosis, no edema Neurologic: normal mental status, non-focal exam Psychiatric: mood appropriate CBC and BMP: 07/08/18 03:40 07/08/18 03:40 ABG, PT/INR, D-dimer: ABG POC ABG pH 7.411 (7.35-7.45) 07/07/18 04:24 POC ABG pCO2 43.0 (35-45) 07/07/18 04:24 POC ABG pO2 104 (80-105) 07/07/18 04:24 POC ABG HCO3 27.3 (22-26 mml/L) 07/07/18 04:24 POC ABG Total CO2 29 (23-27mmol/L) 07/07/18 04:24 POC ABG O2 Sat 98 07/07/18 04:24 PT/INR, D-dimer PT 15.2 Sec. (12.2-14.9) H 07/07/18 15:20 INR 1.13 (0.87-1.13) 07/07/18 15:20 Abnormal lab findings: Abnormal Labs 06/24/18 06/24/18 06/24/18 11:18 11:19 11:19 WBC 19.0 H RBC Hgb Hct MCHC 35 H RDW Plt Count 457 H Seg Neuts % (Manual) 88.0 H Lymphocytes % (Manual) 2.0 L Seg Neutrophils # Man 16.7 H Lymphocytes # (Manual) 0.4 L Monocytes # (Manual) PT 15.9 H INR 1.19 H APTT Heparin Anti-Xa Level POC ABG pH POC ABG pCO2 POC ABG pO2 Sodium 136 L Potassium 2.8 L* Chloride 96.7 L Carbon Dioxide BUN Creatinine 0.4 L Glucose 146 H POC Glucose Calcium Phosphorus TIBC Total Bilirubin 1.90 H Direct Bilirubin 1.5 H Alkaline Phosphatase 264 H C-Reactive Protein NT-Pro-B Natriuret Pep Total Protein Albumin 3.0 L Lipase 8 L Vitamin B12 Folate Ur Specific Ryder Vancomycin Trough Crossmatch 06/24/18 06/24/18 06/25/18 13:00 19:47 06:55 WBC 18.3 H RBC Hgb Hct MCHC 35 H RDW Plt Count 481 H Seg Neuts % (Manual) 88.0 H Lymphocytes % (Manual) 4.0 L Seg Neutrophils # Man 16.1 H Lymphocytes # (Manual) 0.7 L Monocytes # (Manual) PT INR APTT Heparin Anti-Xa Level POC ABG pH POC ABG pCO2 POC ABG pO2 Sodium Potassium 3.5 L D Chloride Carbon Dioxide 21 L BUN Creatinine 0.3 L Glucose 166 H POC Glucose Calcium 7.4 L D Phosphorus TIBC Total Bilirubin Direct Bilirubin Alkaline Phosphatase C-Reactive Protein NT-Pro-B Natriuret Pep Total Protein Albumin Lipase Vitamin B12 Folate Ur Specific Ryder > 1.059 H Vancomycin Trough Crossmatch 06/25/18 06/26/18 06/26/18 06:55 11:54 11:54 WBC 19.9 H RBC 3.48 L Hgb Hct MCHC RDW Plt Count 583 H Seg Neuts % (Manual) Lymphocytes % (Manual) Seg Neutrophils # Man Lymphocytes # (Manual) Monocytes # (Manual) PT INR APTT Heparin Anti-Xa Level POC ABG pH POC ABG pCO2 POC ABG pO2 Sodium 146 H Potassium 3.5 L Chloride 108.3 H 109.9 H Carbon Dioxide BUN Creatinine 0.4 L 0.3 L Glucose 159 H 153 H POC Glucose Calcium 7.7 L 8.2 L Phosphorus TIBC Total Bilirubin Direct Bilirubin Alkaline Phosphatase 152 H C-Reactive Protein NT-Pro-B Natriuret Pep Total Protein 5.3 L Albumin 2.1 L Lipase Vitamin B12 Folate Ur Specific Ry[place] Vancomycin Trough Crossmatch 06/26/18 06/26/18 06/27/18 14:12 20:37 02:04 WBC RBC Hgb Hct MCHC RDW Plt Count Seg Neuts % (Manual) Lymphocytes % (Manual) Seg Neutrophils # Man Lymphocytes # (Manual) Monocytes # (Manual) PT INR APTT Heparin Anti-Xa Level POC ABG pH 7.471 H 7.458 H POC ABG pCO2 POC ABG pO2 74 L 70 L Sodium Potassium Chloride Carbon Dioxide BUN Creatinine Glucose POC Glucose Calcium Phosphorus TIBC Total Bilirubin Direct Bilirubin Alkaline Phosphatase C-Reactive Protein 25.70 H NT-Pro-B Natriuret Pep Total Protein Albumin Lipase Vitamin B12 Folate Ur Specific Ry[place] Vancomycin Trough Crossmatch 06/27/18 06/27/18 06/28/18 09:19 11:50 00:17 WBC 24.5 H 37.2 H RBC Hgb Hct MCHC RDW 15.4 H Plt Count 583 H 657 H Seg Neuts % (Manual) 98.0 H 88.5 H Lymphocytes % (Manual) 1.0 L 4.0 L Seg Neutrophils # Man 24.0 H 32.9 H Lymphocytes # (Manual) 0.2 L Monocytes # (Manual) 1.1 H PT INR APTT Heparin Anti-Xa Level POC ABG pH POC ABG pCO2 POC ABG pO2 Sodium 146 H Potassium 3.5 L Chloride Carbon Dioxide BUN Creatinine 0.3 L Glucose 176 H POC Glucose Calcium 8.2 L Phosphorus TIBC Total Bilirubin Direct Bilirubin Alkaline Phosphatase C-Reactive Protein NT-Pro-B Natriuret Pep Total Protein Albumin Lipase Vitamin B12 Folate Ur Specific [place] Vancomycin Trough Crossmatch 06/28/18 06/28/18 06/28/18 09:56 09:56 09:56 WBC 37.8 H RBC Hgb Hct MCHC RDW 15.3 H Plt Count 634 H Seg Neuts % (Manual) Lymphocytes % (Manual) Seg Neutrophils # Man Lymphocytes # (Manual) Monocytes # (Manual) PT INR APTT Heparin Anti-Xa Level POC ABG pH POC ABG pCO2 POC ABG pO2 Sodium 146 H Potassium 2.8 L* Chloride Carbon Dioxide 31 H BUN Creatinine 0.3 L Glucose 142 H POC Glucose Calcium 8.2 L Phosphorus TIBC Total Bilirubin Direct Bilirubin Alkaline Phosphatase C-Reactive Protein NT-Pro-B Natriuret Pep 1572 H Total Protein Albumin Lipase Vitamin B12 Folate Ur Specific Ry[place] Vancomycin Trough Crossmatch 06/28/18 06/28/18 06/29/18 13:19 21:24 00:57 WBC 28.9 H RBC Hgb Hct MCHC RDW Plt Count 681 H Seg Neuts % (Manual) 93.0 H Lymphocytes % (Manual) 1.5 L Seg Neutrophils # Man 26.9 H Lymphocytes # (Manual) 0.4 L Monocytes # (Manual) PT INR APTT Heparin Anti-Xa Level POC ABG pH 7.470 H POC ABG pCO2 53.0 H POC ABG pO2 120 H Sodium Potassium 3.0 L Chloride Carbon Dioxide 33 H BUN Creatinine 0.3 L Glucose 116 H POC Glucose Calcium 8.2 L Phosphorus TIBC Total Bilirubin Direct Bilirubin Alkaline Phosphatase C-Reactive Protein NT-Pro-B Natriuret Pep Total Protein Albumin Lipase Vitamin B12 Folate Ur Specific [place] Vancomycin Trough Crossmatch 06/29/18 06/29/18 06/29/18 05:58 05:58 12:21 WBC 25.8 H RBC Hgb Hct MCHC RDW Plt Count 661 H Seg Neuts % (Manual) Lymphocytes % (Manual) Seg Neutrophils # Man Lymphocytes # (Manual) Monocytes # (Manual) PT INR APTT Heparin Anti-Xa Level POC ABG pH POC ABG pCO2 POC ABG pO2 Sodium Potassium 2.7 L* Chloride Carbon Dioxide 35 H BUN Creatinine 0.3 L Glucose 132 H POC Glucose 130 H Calcium 8.2 L Phosphorus TIBC Total Bilirubin Direct Bilirubin Alkaline Phosphatase C-Reactive Protein NT-Pro-B Natriuret Pep Total Protein Albumin Lipase Vitamin B12 Folate Ur Specific [place] Vancomycin Trough Crossmatch 06/29/18 06/29/18 06/30/18 17:53 18:52 05:02 WBC RBC Hgb Hct MCHC RDW Plt Count Seg Neuts % (Manual) Lymphocytes % (Manual) Seg Neutrophils # Man Lymphocytes # (Manual) Monocytes # (Manual) PT INR APTT Heparin Anti-Xa Level POC ABG pH POC ABG pCO2 POC ABG pO2 Sodium Potassium 3.1 L Chloride Carbon Dioxide 33 H BUN Creatinine 0.3 L Glucose 129 H POC Glucose 109 H 106 H Calcium 8.2 L Phosphorus TIBC Total Bilirubin Direct Bilirubin Alkaline Phosphatase C-Reactive Protein NT-Pro-B Natriuret Pep Total Protein Albumin Lipase Vitamin B12 Folate Ur Specific [place] Vancomycin Trough Crossmatch 06/30/18 06/30/18 06/30/18 07:19 07:19 16:17 WBC 23.1 H RBC Hgb Hct MCHC RDW Plt Count 652 H Seg Neuts % (Manual) Lymphocytes % (Manual) Seg Neutrophils # Man Lymphocytes # (Manual) Monocytes # (Manual) PT INR APTT Heparin Anti-Xa Level POC ABG pH POC ABG pCO2 POC ABG pO2 Sodium Potassium 2.8 L* Chloride Carbon Dioxide BUN Creatinine 0.3 L Glucose 109 H POC Glucose Calcium 8.2 L Phosphorus TIBC Total Bilirubin Direct Bilirubin Alkaline Phosphatase C-Reactive Protein NT-Pro-B Natriuret Pep Total Protein Albumin Lipase Vitamin B12 Folate Ur Specific [place] Vancomycin Trough < 4.0 L Crossmatch 06/30/18 06/30/18 06/30/18 16:17 16:17 19:00 WBC RBC Hgb Hct MCHC RDW Plt Count Seg Neuts % (Manual) Lymphocytes % (Manual) Seg Neutrophils # Man Lymphocytes # (Manual) Monocytes # (Manual) PT INR APTT Heparin Anti-Xa Level POC ABG pH POC ABG pCO2 POC ABG pO2 Sodium Potassium 3.0 L 3.2 L Chloride Carbon Dioxide BUN Creatinine 0.3 L Glucose 138 H POC Glucose Calcium Phosphorus 2.30 L D TIBC Total Bilirubin Direct Bilirubin Alkaline Phosphatase C-Reactive Protein NT-Pro-B Natriuret Pep Total Protein Albumin Lipase Vitamin B12 Folate Ur Specific [place] Vancomycin Trough Crossmatch 07/01/18 07/01/18 07/01/18 04:04 04:04 12:21 WBC 26.3 H RBC Hgb Hct MCHC RDW Plt Count Seg Neuts % (Manual) Lymphocytes % (Manual) Seg Neutrophils # Man Lymphocytes # (Manual) Monocytes # (Manual) PT INR APTT Heparin Anti-Xa Level POC ABG pH POC ABG pCO2 POC ABG pO2 Sodium 147 H Potassium Chloride Carbon Dioxide BUN 22 H Creatinine 0.3 L Glucose 126 H POC Glucose 190 H Calcium Phosphorus TIBC Total Bilirubin Direct Bilirubin Alkaline Phosphatase C-Reactive Protein NT-Pro-B Natriuret Pep Total Protein Albumin Lipase Vitamin B12 Folate Ur Specific [place] Vancomycin Trough Crossmatch 07/02/18 07/02/18 07/03/18 04:17 04:17 09:58 WBC 40.2 H* 48.6 H* RBC 3.51 L Hgb Hct MCHC RDW Plt Count Seg Neuts % (Manual) Lymphocytes % (Manual) Seg Neutrophils # Man Lymphocytes # (Manual) Monocytes # (Manual) PT INR APTT Heparin Anti-Xa Level POC ABG pH POC ABG pCO2 POC ABG pO2 Sodium Potassium 3.4 L Chloride Carbon Dioxide 32 H BUN 30 H Creatinine 0.3 L Glucose 166 H POC Glucose Calcium Phosphorus TIBC Total Bilirubin Direct Bilirubin Alkaline Phosphatase C-Reactive Protein NT-Pro-B Natriuret Pep Total Protein Albumin Lipase Vitamin B12 Folate Ur Specific [place] Vancomycin Trough Crossmatch 07/03/18 07/03/18 07/04/18 09:58 11:07 05:37 WBC 48.5 H* RBC 3.53 L Hgb Hct MCHC RDW Plt Count 477 H Seg Neuts % (Manual) Lymphocytes % (Manual) Seg Neutrophils # Man Lymphocytes # (Manual) Monocytes # (Manual) PT INR APTT Heparin Anti-Xa Level POC ABG pH POC ABG pCO2 POC ABG pO2 Sodium Potassium 3.5 L Chloride Carbon Dioxide 31 H BUN 33 H Creatinine 0.3 L Glucose 162 H POC Glucose Calcium Phosphorus TIBC Total Bilirubin Direct Bilirubin Alkaline Phosphatase C-Reactive Protein 13.20 H NT-Pro-B Natriuret Pep Total Protein Albumin Lipase Vitamin B12 Folate Ur Specific [place] Vancomycin Trough Crossmatch 07/04/18 07/04/18 07/04/18 05:37 17:54 17:54 WBC RBC Hgb Hct MCHC RDW Plt Count Seg Neuts % (Manual) Lymphocytes % (Manual) Seg Neutrophils # Man Lymphocytes # (Manual) Monocytes # (Manual) PT INR APTT Heparin Anti-Xa Level POC ABG pH POC ABG pCO2 POC ABG pO2 Sodium Potassium 3.4 L Chloride Carbon Dioxide 32 H BUN 30 H Creatinine 0.3 L Glucose 146 H POC Glucose Calcium Phosphorus TIBC Total Bilirubin Direct Bilirubin Alkaline Phosphatase C-Reactive Protein NT-Pro-B Natriuret Pep Total Protein Albumin Lipase Vitamin B12 Folate Ur Specific [place] Vancomycin Trough Crossmatch See Detail See Detail 07/04/18 07/04/18 07/04/18 19:00 19:00 21:50 WBC RBC Hgb 9.5 L Hct 28.7 L MCHC RDW Plt Count 512 H Seg Neuts % (Manual) Lymphocytes % (Manual) Seg Neutrophils # Man Lymphocytes # (Manual) Monocytes # (Manual) PT 18.7 H INR 1.46 H APTT Heparin Anti-Xa Level POC ABG pH 7.469 H POC ABG pCO2 45.8 H POC ABG pO2 109 H Sodium Potassium Chloride Carbon Dioxide BUN Creatinine Glucose POC Glucose Calcium Phosphorus TIBC Total Bilirubin Direct Bilirubin Alkaline Phosphatase C-Reactive Protein NT-Pro-B Natriuret Pep Total Protein Albumin Lipase Vitamin B12 Folate Ur Specific [place] Vancomycin Trough Crossmatch 07/05/18 07/05/18 07/05/18 03:14 03:14 03:14 WBC 36.6 H RBC 3.12 L Hgb 9.1 L Hct 27.5 L MCHC RDW Plt Count 529 H Seg Neuts % (Manual) Lymphocytes % (Manual) Seg Neutrophils # Man Lymphocytes # (Manual) Monocytes # (Manual) PT INR APTT Heparin Anti-Xa Level 0.10 L POC ABG pH POC ABG pCO2 POC ABG pO2 Sodium Potassium Chloride Carbon Dioxide BUN 29 H Creatinine 0.2 L Glucose 149 H POC Glucose Calcium 8.1 L Phosphorus TIBC Total Bilirubin Direct Bilirubin Alkaline Phosphatase C-Reactive Protein NT-Pro-B Natriuret Pep Total Protein 4.5 L Albumin 1.6 L Lipase Vitamin B12 Folate Ur Specific [place] Vancomycin Trough Crossmatch 07/05/18 07/05/18 07/05/18 04:45 10:57 10:57 WBC RBC Hgb Hct MCHC RDW Plt Count Seg Neuts % (Manual) Lymphocytes % (Manual) Seg Neutrophils # Man Lymphocytes # (Manual) Monocytes # (Manual) PT INR APTT Heparin Anti-Xa Level < 0.10 L POC ABG pH POC ABG pCO2 50.6 H POC ABG pO2 181 H Sodium Potassium Chloride Carbon Dioxide BUN Creatinine Glucose POC Glucose Calcium Phosphorus TIBC Total Bilirubin Direct Bilirubin Alkaline Phosphatase C-Reactive Protein NT-Pro-B Natriuret Pep Total Protein Albumin Lipase Vitamin B12 Folate Ur Specific [place] Vancomycin Trough 38.9 H Crossmatch 07/05/18 07/06/18 07/06/18 18:27 02:00 04:48 WBC RBC Hgb Hct MCHC RDW Plt Count Seg Neuts % (Manual) Lymphocytes % (Manual) Seg Neutrophils # Man Lymphocytes # (Manual) Monocytes # (Manual) PT INR APTT Heparin Anti-Xa Level < 0.10 L 0.23 L POC ABG pH POC ABG pCO2 POC ABG pO2 118 H Sodium Potassium Chloride Carbon Dioxide BUN Creatinine Glucose POC Glucose Calcium Phosphorus TIBC Total Bilirubin Direct Bilirubin Alkaline Phosphatase C-Reactive Protein NT-Pro-B Natriuret Pep Total Protein Albumin Lipase Vitamin B12 Folate Ur Specific [place] Vancomycin Trough Crossmatch 07/06/18 07/06/18 07/06/18 05:00 05:00 12:05 WBC 23.1 H RBC 2.50 L Hgb 7.3 L Hct 22.3 L MCHC RDW Plt Count 541 H Seg Neuts % (Manual) Lymphocytes % (Manual) Seg Neutrophils # Man Lymphocytes # (Manual) Monocytes # (Manual) PT INR APTT Heparin Anti-Xa Level 0.14 L POC ABG pH POC ABG pCO2 POC ABG pO2 Sodium Potassium Chloride 109.8 H Carbon Dioxide BUN 27 H Creatinine 0.2 L Glucose 157 H POC Glucose Calcium 7.7 L Phosphorus 1.60 L TIBC Total Bilirubin Direct Bilirubin Alkaline Phosphatase C-Reactive Protein NT-Pro-B Natriuret Pep Total Protein 4.5 L Albumin 1.7 L Lipase Vitamin B12 Folate Ur Specific [place] Vancomycin Trough Crossmatch 07/06/18 07/06/18 07/07/18 17:29 19:45 00:17 WBC RBC Hgb Hct MCHC RDW Plt Count Seg Neuts % (Manual) Lymphocytes % (Manual) Seg Neutrophils # Man Lymphocytes # (Manual) Monocytes # (Manual) PT INR APTT Heparin Anti-Xa Level 0.18 L POC ABG pH POC ABG pCO2 POC ABG pO2 Sodium Potassium Chloride Carbon Dioxide BUN Creatinine Glucose POC Glucose 141 H 143 H Calcium Phosphorus TIBC Total Bilirubin Direct Bilirubin Alkaline Phosphatase C-Reactive Protein NT-Pro-B Natriuret Pep Total Protein Albumin Lipase Vitamin B12 Folate Ur Specific [place] Vancomycin Trough Crossmatch 07/07/18 07/07/18 07/07/18 02:14 02:14 05:09 WBC RBC Hgb Hct MCHC RDW Plt Count Seg Neuts % (Manual) Lymphocytes % (Manual) Seg Neutrophils # Man Lymphocytes # (Manual) Monocytes # (Manual) PT INR APTT Heparin Anti-Xa Level < 0.10 L POC ABG pH POC ABG pCO2 POC ABG pO2 Sodium Potassium 3.4 L Chloride Carbon Dioxide BUN Creatinine < 0.2 L Glucose 127 H POC Glucose 126 H Calcium 7.6 L Phosphorus 2.10 L D TIBC Total Bilirubin Direct Bilirubin Alkaline Phosphatase C-Reactive Protein NT-Pro-B Natriuret Pep Total Protein Albumin Lipase Vitamin B12 Folate Ur Specific [place] Vancomycin Trough Crossmatch 07/07/18 07/07/18 07/07/18 07:08 10:57 11:50 WBC 19.3 H RBC 2.49 L Hgb 7.2 L Hct 22.2 L MCHC RDW Plt Count 517 H Seg Neuts % (Manual) Lymphocytes % (Manual) Seg Neutrophils # Man Lymphocytes # (Manual) Monocytes # (Manual) PT INR APTT Heparin Anti-Xa Level POC ABG pH POC ABG pCO2 POC ABG pO2 Sodium Potassium Chloride Carbon Dioxide BUN Creatinine Glucose POC Glucose 115 H Calcium Phosphorus TIBC 94 L Total Bilirubin Direct Bilirubin Alkaline Phosphatase C-Reactive Protein NT-Pro-B Natriuret Pep Total Protein Albumin Lipase Vitamin B12 Folate Ur Specific [place] Vancomycin Trough Crossmatch 07/07/18 07/07/18 07/07/18 11:50 11:50 15:20 WBC RBC Hgb Hct MCHC RDW Plt Count 489 H Seg Neuts % (Manual) Lymphocytes % (Manual) Seg Neutrophils # Man Lymphocytes # (Manual) Monocytes # (Manual) PT INR APTT Heparin Anti-Xa Level POC ABG pH POC ABG pCO2 POC ABG pO2 Sodium Potassium Chloride Carbon Dioxide BUN Creatinine Glucose POC Glucose Calcium Phosphorus TIBC Total Bilirubin Direct Bilirubin Alkaline Phosphatase C-Reactive Protein NT-Pro-B Natriuret Pep Total Protein Albumin Lipase Vitamin B12 924.8 H Folate 4.92 L Ur Specific [place] Vancomycin Trough Crossmatch 07/07/18 07/07/18 07/07/18 15:20 18:16 20:04 WBC RBC Hgb Hct MCHC RDW Plt Count Seg Neuts % (Manual) Lymphocytes % (Manual) Seg Neutrophils # Man Lymphocytes # (Manual) Monocytes # (Manual) PT 15.2 H INR APTT 42.2 H Heparin Anti-Xa Level < 0.10 L POC ABG pH POC ABG pCO2 POC ABG pO2 Sodium Potassium Chloride Carbon Dioxide BUN Creatinine Glucose POC Glucose 125 H Calcium Phosphorus TIBC Total Bilirubin Direct Bilirubin Alkaline Phosphatase C-Reactive Protein NT-Pro-B Natriuret Pep Total Protein Albumin Lipase Vitamin B12 Folate Ur Specific [place] Vancomycin Trough Crossmatch 07/08/18 07/08/18 07/08/18 01:07 03:40 03:40 WBC RBC Hgb Hct MCHC RDW Plt Count 477 H Seg Neuts % (Manual) Lymphocytes % (Manual) Seg Neutrophils # Man Lymphocytes # (Manual) Monocytes # (Manual) PT INR APTT Heparin Anti-Xa Level POC ABG pH POC ABG pCO2 POC ABG pO2 Sodium Potassium Chloride Carbon Dioxide BUN Creatinine < 0.2 L Glucose 161 H POC Glucose 132 H Calcium 7.9 L Phosphorus TIBC Total Bilirubin Direct Bilirubin Alkaline Phosphatase C-Reactive Protein NT-Pro-B Natriuret Pep Total Protein Albumin Lipase Vitamin B12 Folate Ur Specific [place] Vancomycin Trough Crossmatch 07/08/18 06:16 WBC RBC Hgb Hct MCHC RDW Plt Count Seg Neuts % (Manual) Lymphocytes % (Manual) Seg Neutrophils # Man Lymphocytes # (Manual) Monocytes # (Manual) PT INR APTT Heparin Anti-Xa Level POC ABG pH POC ABG pCO2 POC ABG pO2 Sodium Potassium Chloride Carbon Dioxide BUN Creatinine Glucose POC Glucose 143 H Calcium Phosphorus TIBC Total Bilirubin Direct Bilirubin Alkaline Phosphatase C-Reactive Protein NT-Pro-B Natriuret Pep Total Protein Albumin Lipase Vitamin B12 Folate Ur Specific [place] Vancomycin Trough Crossmatch
[2018-07-08] MEDS: MAXIPIME/NS 2 GM/100 ML 2 GM/100 ML BAG IV SCH ×2 (10:00→22:14)
[2018-07-08] MEDS: DIFLUCAN 200 ML IV SCH (10:00)
[2018-07-08] MEDS: HABITROL TD SCH (10:00)
[2018-07-08] MEDS: PROTONIX IV SCH ×2 (10:00→22:13)
[2018-07-08] MEDS: SODIUM CHLORIDE FLUSH SYRINGE 10 ML IV SCH ×2 (10:00→22:00)
--- NOTE | 2018-07-08 10:57 | Progress Note ---
Assessment and Plan - Patient Problems (1) Perforated viscus Current Visit: Yes Status: Acute Plan to address problem: 58 yo F s/p 1) exploratory laparotomy, small bowel resection with primary anastamosis, right hemicolectomy with ileocolonic anastamosis, temporary closure of abdomen with abthera vac 07/07/18 - POD#1; 2) Exploratory laparotomy, small bowel resection, partial colon resection, temporary abdominal closure with abthera vac 07/04/18, POD 3 and 3) Exploratory laparotomy, Ezequiel's procedure 06/24/18 Plan: 1. continue vent, do not extubate 2. NPO 3. IVF 4. continue fent and propofol gtt 5. abthera vac to -125mmHg suction, do not remove 6. NGT to LIWS 7. continue heparin gtt 8. discussed TPN with head baker 9. IV abx - white count improving 10. will plan to return to OR on Monday 07/10 to reevaluate remaining bowel. Hold hepgtt 6 hours prior to surgery. Spoke with family at bedside. Subjective Date of service: 07/08/18 Patient Reports: Positive: no new complaints (no abdominal pain). Negative: nausea, vomiting Objective Vital Signs - 12hr 07/07/18 07/07/18 07/07/18 23:00 23:15 23:30 Temperature Pulse Rate 116 H 113 H 117 H Pulse Rate [ Anterior Bilateral Throughout] Pulse Rate [ From Monitor] Respiratory 22 18 17 Rate Respiratory Rate [Anterior Bilateral Throughout] Blood Pressure 100/61 107/63 106/54 O2 Sat by Pulse 98 98 97 Oximetry 07/07/18 07/08/18 07/08/18 23:45 00:00 00:04 Temperature 98.5 F Pulse Rate 115 H 111 H 112 H Pulse Rate [ Anterior Bilateral Throughout] Pulse Rate [ 112 H From Monitor] Respiratory 17 20 Rate Respiratory Rate [Anterior Bilateral Throughout] Blood Pressure 106/57 104/62 104/62 O2 Sat by Pulse 97 97 112 H Oximetry 07/08/18 07/08/18 07/08/18 00:15 00:30 00:45 Temperature Pulse Rate 111 H 109 H 109 H Pulse Rate [ Anterior Bilateral Throughout] Pulse Rate [ From Monitor] Respiratory 22 22 20 Rate Respiratory Rate [Anterior Bilateral Throughout] Blood Pressure 108/60 100/62 97/56 O2 Sat by Pulse 96 96 Oximetry 07/08/18 07/08/18 07/08/18 01:00 01:15 01:30 Temperature Pulse Rate 108 H 110 H 109 H Pulse Rate [ Anterior Bilateral Throughout] Pulse Rate [ From Monitor] Respiratory 22 22 22 Rate Respiratory Rate [Anterior Bilateral Throughout] Blood Pressure 102/61 99/63 97/47 O2 Sat by Pulse 98 97 97 Oximetry 07/08/18 07/08/18 07/08/18 01:45 02:00 02:15 Temperature Pulse Rate 107 H 113 H 112 H Pulse Rate [ Anterior Bilateral Throughout] Pulse Rate [ From Monitor] Respiratory 20 12 21 Rate Respiratory Rate [Anterior Bilateral Throughout] Blood Pressure 98/56 106/72 103/67 O2 Sat by Pulse 98 98 95 Oximetry 07/08/18 07/08/18 07/08/18 02:30 02:45 03:00 Temperature Pulse Rate 111 H 109 H 107 H Pulse Rate [ Anterior Bilateral Throughout] Pulse Rate [ From Monitor] Respiratory 20 20 24 Rate Respiratory Rate [Anterior Bilateral Throughout] Blood Pressure 99/62 102/67 105/63 O2 Sat by Pulse 96 96 97 Oximetry 07/08/18 07/08/18 07/08/18 03:15 03:30 03:45 Temperature Pulse Rate 107 H 106 H 112 H Pulse Rate [ Anterior Bilateral Throughout] Pulse Rate [ From Monitor] Respiratory 20 21 15 Rate Respiratory Rate [Anterior Bilateral Throughout] Blood Pressure 112/56 100/66 105/63 O2 Sat by Pulse 96 97 97 Oximetry 07/08/18 07/08/18 07/08/18 04:00 04:15 04:30 Temperature 98.9 F Pulse Rate 108 H 109 H 106 H Pulse Rate [ Anterior Bilateral Throughout] Pulse Rate [ 108 H From Monitor] Respiratory 19 19 21 Rate Respiratory Rate [Anterior Bilateral Throughout] Blood Pressure 119/65 102/64 97/64 O2 Sat by Pulse 97 97 96 Oximetry 07/08/18 07/08/18 07/08/18 04:45 05:00 05:15 Temperature Pulse Rate 105 H 101 H 102 H Pulse Rate [ Anterior Bilateral Throughout] Pulse Rate [ From Monitor] Respiratory 19 21 18 Rate Respiratory Rate [Anterior Bilateral Throughout] Blood Pressure 105/64 101/61 109/61 O2 Sat by Pulse 96 97 97 Oximetry 07/08/18 07/08/18 07/08/18 05:30 05:45 06:00 Temperature Pulse Rate 103 H 102 H 94 H Pulse Rate [ Anterior Bilateral Throughout] Pulse Rate [ 90 From Monitor] Respiratory 18 18 18 Rate Respiratory Rate [Anterior Bilateral Throughout] Blood Pressure 105/64 103/61 105/62 O2 Sat by Pulse 98 97 97 Oximetry 07/08/18 07/08/18 07/08/18 06:15 06:18 06:30 Temperature Pulse Rate 110 H 106 H 104 H Pulse Rate [ Anterior Bilateral Throughout] Pulse Rate [ From Monitor] Respiratory 19 18 Rate Respiratory Rate [Anterior Bilateral Throughout] Blood Pressure 105/62 107/68 108/62 O2 Sat by Pulse 98 105 H 99 Oximetry 07/08/18 07/08/18 07/08/18 06:45 07:00 07:14 Temperature Pulse Rate 105 H 103 H 100 H Pulse Rate [ 98 H Anterior Bilateral Throughout] Pulse Rate [ From Monitor] Respiratory 18 18 Rate Respiratory 18 Rate [Anterior Bilateral Throughout] Blood Pressure 102/61 109/61 111/63 O2 Sat by Pulse 98 99 98 Oximetry 07/08/18 07/08/18 08:00 09:10 Temperature 97.0 F L Pulse Rate 112 H Pulse Rate [ Anterior Bilateral Throughout] Pulse Rate [ From Monitor] Respiratory 13 Rate Respiratory Rate [Anterior Bilateral Throughout] Blood Pressure 113/55 O2 Sat by Pulse 98 Oximetry - General physical appearance no distress, no pain, other (awake on vent. ) - Eyes normal occular movement - Respiratory normal expansion, normal respiratory effort - Abdomen soft, not tender, not bowel sounds hypoactive, not guarding, not rigid, other (wound vac in place. serous drainage. ) - Integumentary no rash, no growths, no abnormal pigmentation - Labs 07/08/18 03:40 07/08/18 03:40 Diabetes panel 07/07/18 07/08/18 Range/Units 20:04 03:40 Sodium 139 (137-145) mmol/L Potassium 3.6 4.3 (3.6-5.0) mmol/L Chloride 104.0 (98-107) mmol/L Carbon Dioxide 28 (22-30) mmol/L BUN 17 (7-17) mg/dL Creatinine < 0.2 L (0.7-1.2) mg/dL Glucose 161 H (65-100) mg/dL Calcium 7.9 L (8.4-10.2) mg/dL Calcium panel 07/08/18 Range/Units 03:40 Calcium 7.9 L (8.4-10.2) mg/dL Phosphorus 3.00 D (2.5-4.5) mg/dL Pituitary panel 07/07/18 07/08/18 Range/Units 20:04 03:40 Sodium 139 (137-145) mmol/L Potassium 3.6 4.3 (3.6-5.0) mmol/L Chloride 104.0 (98-107) mmol/L Carbon Dioxide 28 (22-30) mmol/L BUN 17 (7-17) mg/dL Creatinine < 0.2 L (0.7-1.2) mg/dL Glucose 161 H (65-100) mg/dL Calcium 7.9 L (8.4-10.2) mg/dL Adrenal panel 07/07/18 07/08/18 Range/Units 20:04 03:40 Sodium 139 (137-145) mmol/L Potassium 3.6 4.3 (3.6-5.0) mmol/L Chloride 104.0 (98-107) mmol/L Carbon Dioxide 28 (22-30) mmol/L BUN 17 (7-17) mg/dL Creatinine < 0.2 L (0.7-1.2) mg/dL Glucose 161 H (65-100) mg/dL Calcium 7.9 L (8.4-10.2) mg/dL
--- NOTE | 2018-07-08 13:59 | Progress Note ---
Assessment and Plan Assessment and plan: Patient is 58 yo female with Nicotine Dependence, Severe Malnutrition present to ED for evaluation. Patient presented with abdominal pain for 1 week progressively worsening symptoms over the same time frame. Pt states that her abdominal pain is 10/10, generalized, nonradiating, constant, worsened with movement. Pt denies NVD, ingestion of food/water from new or different sources, BRBPR, skin rash, or recent ill contacts. She was seen and evaluated in ED and found to have PSBO complicated by Bowel Perforation, SIRS, and severe malnutrition. Pt admitted to surgical floor. Surgery consulted in ED. Patient was taken to OR urgently. She had exploratory lap. surgeon found Sigmoid diverticulitis with perforation of distal sigmoid colon, purulent peritonitis. Peritoneal lavage and Posey's procedure was done on 06/24. Post-op was doing well, but on 06/28 developed acute resp failure was put on PBIPAP, transferred to ICU. Pulmonology consulted. she was given lasix, she improved BIPAP, discontinue d, placed on HFNC Oxygen and now on oxygen by NV. today has worsening leukocytosis therefore CT Chest/Abd ordered. 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 Patient was also noted to have right lower quadrant not appear viable. And was taken back for exploratory laparotomy. * s/p Exploratory laparotomy, small bowel resection, partial colon resection, temporary abdominal closure with abthera vac 07/04/18, POD 1 and * Exploratory laparotomy, Ezequiel's procedure 06/24/18 * Continues on full ventilatory support * IV heparin infusion, * Plan is to repeat scan in am and possible return to OR for evaluation of remaining bowel * PICC line placed for TPN. * Discussed extensively with patients brother, Sisters and Significant other. 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 Acute hypoxic respiratory failure -oN MECHANICAL VENTILATION Severe enterocolitis Purulent peritonitis Sigmoid diverticulitis with perforation of distal sigmoid colon hypokalemia, severe hyponatremia Moderate malnutrition Nicotine dependence Sepsis- On Cefepime, Fluconazole,flagyl leukocytosis, worsening, WBC 48.6 today Plan S/P Exploratory laparotomy, small bowel resection, partial colon resection, temporary abdominal closure with abthera vac 07/04/18 DO Not extubate per Surgery Continue Fentanyl Continue TPN for now Case management for financail assistance in preparation for discharge although still a going to be determined next week Continue Heparin drip Abdomen left open WITH Temporal closure Status post ex lap, peritoneal lavage, Posey's procedure on 06/24 Electrolytes have been replaced abx per ID. On cefepime, fluconazole, flagyl- PROBABLY WILL NEED PROLONGED DURATION DUE TO SURGERY lasix, oxygen supplement, breathing rx as needed Echo Prior to discharge Full code status discussed with surgeon and ID Physician Family updated. dvt/gi PROPHY The high probability of a clinically significant, sudden or life threatening deterioration of the [GI] system(s) required my full and direct attention, intervention and personal management. The aggregate critical care time was [45] minutes. This time is in addition to time spent performing reported procedures but includes the following: [x] Data Review and interpretation [x] Patient assessment and monitoring of vital signs [x] Documentation [x] Medication orders and management History Interval history: Patient' seen and examined remains on full ventilatory support. No new complaints Hospitalist Physical - Physical exam Narrative exam: Gen: in mild distress on full mechnical ventilatory support HEENT: Normocephalic, atraumatic, oct in place, ett noted Neck: supple, no JVD Heart: S1 and S2 reg, no murmurs, rubs or gallop Lungs: Bilateral crackles less, no wheeze Abd: soft, NT, abthera vac in place, clear drainage noted, osteomy noted. Ext:No edema, no clubbing, no cyanosis Neuro: Awake,alert, oriented, awakens and comprehends discussion, follows command moves all ext, non focal Psych:anxious : Sharif - Constitutional Vitals: Temp Pulse Resp BP Pulse Ox 98.3 F 104 H 12 108/59 99 07/08/18 12:00 07/08/18 13:34 07/08/18 13:34 07/08/18 13:15 07/08/18 13:15 General appearance: Present: no acute distress, other (intubated) Results - Labs CBC & Chem 7: 07/08/18 03:40 07/08/18 03:40 Labs: Laboratory Last Values WBC 19.3 K/mm3 (4.5-11.0) H 07/07/18 07:08 RBC 2.49 M/mm3 (3.65-5.03) L 07/07/18 07:08 Hgb 11.2 gm/dl (10.1-14.3) 07/08/18 03:40 Hct 33.8 % (30.3-42.9) 07/08/18 03:40 MCV 89 fl (79-97) 07/07/18 07:08 MCH 29 pg (28-32) 07/07/18 07:08 MCHC 33 % (30-34) 07/07/18 07:08 RDW 15.0 % (13.2-15.2) 07/07/18 07:08 Plt Count 477 K/mm3 (140-440) H 07/08/18 03:40 Add Manual Diff Complete 06/29/18 00:57 Total Counted 200 06/29/18 00:57 Seg Neutrophils % Slasher Operator 06/29/18 00:57 Seg Neuts % (Manual) 93.0 % (40.0-70.0) H 06/29/18 00:57 3.5 % 06/29/18 00:57 1.5 % (13.4-35.0) L 06/29/18 00:57 Reactive Lymphs % (Man) 0.5 % 06/29/18 00:57 1.5 % (0.0-7.3) 06/29/18 00:57 0 % (0.0-4.3) 06/29/18 00:57 0 % (0.0-1.8) 06/29/18 00:57 0 % 06/29/18 00:57 0 % 06/29/18 00:57 0 % 06/29/18 00:57 0 % 06/29/18 00:57 Nucleated RBC % Not Reportable 06/29/18 00:57 Seg Neutrophils # Man 26.9 K/mm3 (1.8-7.7) H 06/29/18 00:57 Band Neutrophils # 1.0 K/mm3 06/29/18 00:57 0.4 K/mm3 (1.2-5.4) L 06/29/18 00:57 Abs React Lymphs (Man) 0.1 K/mm3 06/29/18 00:57 0.4 K/mm3 (0.0-0.8) 06/29/18 00:57 0.0 K/mm3 (0.0-0.4) 06/29/18 00:57 0.0 K/mm3 (0.0-0.1) 06/29/18 00:57 0.0 K/mm3 06/29/18 00:57 0.0 K/mm3 06/29/18 00:57 0.0 K/mm3 06/29/18 00:57 Blast Cells # 0.0 K/mm3 06/29/18 00:57 WBC Morphology Not Reportable 06/29/18 00:57 WBC Morphology TNR 06/29/18 00:57 Hypersegmented Neuts Few 06/29/18 00:57 Hyposegmented Neuts Not Reportable 06/29/18 00:57 Hypogranular Neuts Not Reportable 06/29/18 00:57 Not Reportable 06/29/18 00:57 Not Reportable 06/29/18 00:57 Not Reportable 06/29/18 00:57 Not Reportable 06/29/18 00:57 Not Reportable 06/29/18 00:57 Not Reportable 06/29/18 00:57 Appears increased 06/29/18 00:57 Not Reportable 06/29/18 00:57 Plt Clumps, EDTA Not Reportable 06/29/18 00:57 Not Reportable 06/29/18 00:57 Not Reportable 06/29/18 00:57 Not Reportable 06/29/18 00:57 Plt Morphology Comment Not Reportable 06/29/18 00:57 RBC Morphology Not Reportable 06/29/18 00:57 Dimorphic RBCs Not Reportable 06/29/18 00:57 Not Reportable 06/29/18 00:57 Not Reportable 06/29/18 00:57 Not Reportable 06/29/18 00:57 Not Reportable 06/29/18 00:57 Not Reportable 06/29/18 00:57 Not Reportable 06/29/18 00:57 Not Reportable 06/29/18 00:57 Not Reportable 06/29/18 00:57 Not Reportable 06/29/18 00:57 Not Reportable 06/29/18 00:57 Not Reportable 06/29/18 00:57 Not Reportable 06/29/18 00:57 Not Reportable 06/29/18 00:57 Not Reportable 06/29/18 00:57 Not Reportable 06/29/18 00:57 Not Reportable 06/29/18 00:57 Not Reportable 06/29/18 00:57 Not Reportable 06/29/18 00:57 Not Reportable 06/29/18 00:57 Acanthocytes (Spur) Not Reportable 06/29/18 00:57 Rouleaux Not Reportable 06/29/18 00:57 Not Reportable 06/29/18 00:57 Not Reportable 06/29/18 00:57 Not Reportable 06/29/18 00:57 Not Reportable 06/29/18 00:57 Hem Pathologist Commnt No 06/29/18 00:57 PT 15.2 Sec. (12.2-14.9) H 07/07/18 15:20 INR 1.13 (0.87-1.13) 07/07/18 15:20 APTT 42.2 Sec. (24.2-36.6) H 07/07/18 15:20 Heparin Anti-Xa Level 0.50 U.I./ml (0.3-0.7) 07/08/18 09:41 POC ABG pH 7.411 (7.35-7.45) 07/07/18 04:24 POC ABG pCO2 43.0 (35-45) 07/07/18 04:24 POC ABG pO2 104 (80-105) 07/07/18 04:24 POC ABG HCO3 27.3 (22-26 mml/L) 07/07/18 04:24 POC ABG Total CO2 29 (23-27mmol/L) 07/07/18 04:24 POC ABG O2 Sat 98 07/07/18 04:24 POC ABG Base Excess 3 ((-2) - (+3)mmol/L) 07/07/18 04:24 28 % 07/07/18 04:24 Sodium 139 mmol/L (137-145) 07/08/18 03:40 Potassium 4.3 mmol/L (3.6-5.0) 07/08/18 03:40 Chloride 104.0 mmol/L (98-107) 07/08/18 03:40 Carbon Dioxide 28 mmol/L (22-30) 07/08/18 03:40 11 mmol/L 07/08/18 03:40 BUN 17 mg/dL (7-17) 07/08/18 03:40 < 0.2 mg/dL (0.7-1.2) L 07/08/18 03:40 Estimated GFR > 60 ml/min 07/08/18 03:40 85 % 07/08/18 03:40 Glucose 161 mg/dL (65-100) H 07/08/18 03:40 POC Glucose 154 (70-105) H 07/08/18 11:35 Lactic Acid 1.40 mmol/L (0.7-2.0) 07/04/18 21:11 Calcium 7.9 mg/dL (8.4-10.2) L 07/08/18 03:40 Phosphorus 3.00 mg/dL (2.5-4.5) D 07/08/18 03:40 Magnesium 1.70 mg/dL (1.7-2.3) 07/08/18 03:40 Iron 40 ug/dL (37-170) 07/07/18 11:50 TIBC 94 mcg/dL (250-450) L 07/07/18 11:50 377.8 ng/mL (13.0-400.0) 07/07/18 11:50 0.30 mg/dL (0.1-1.2) 07/06/18 05:00 1.5 mg/dL (0-0.2) H 06/24/18 11:19 0.4 mg/dL 06/24/18 11:19 AST 21 units/L (5-40) 07/06/18 05:00 ALT 16 units/L (7-56) 07/06/18 05:00 99 units/L (35-129) 07/06/18 05:00 13.20 mg/dL (0.00-1.30) H 07/03/18 11:07 NT-Pro-B Natriuret Pep 1572 pg/mL (0-900) H 06/28/18 09:56 4.5 g/dL (6.3-8.2) L 07/06/18 05:00 1.7 g/dL (3.9-5) L 07/06/18 05:00 0.6 % 07/06/18 05:00 Triglycerides 127 mg/dL (2-149) 07/07/18 02:14 8 units/L (13-60) L 06/24/18 11:19 Vitamin B12 924.8 pg/mL (211-911) H 07/07/18 11:50 4.92 ng/mL (7.3-26.0) L 07/07/18 11:50 Na (Yellow) 07/03/18 Unknown Hazy (Clear) 07/03/18 Unknown 6.0 (5.0-7.0) 07/03/18 Unknown Ur Specific [place] 1.023 (1.003-1.030) 07/03/18 Unknown <15 mg/dl mg/dL (Negative) 07/03/18 Unknown Neg mg/dL (Negative) 07/03/18 Unknown Neg mg/dL (Negative) 07/03/18 Unknown Sm (Negative) 07/03/18 Unknown Neg (Negative) 07/03/18 Unknown Neg (Negative) 07/03/18 Unknown < 2.0 mg/dL (<2.0) 07/03/18 Unknown Ur Leukocyte Esterase Neg (Negative) 07/03/18 Unknown 1.0 /HPF (0.0-6.0) 07/03/18 Unknown 3.0 /HPF (0.0-6.0) 07/03/18 Unknown U Epithel Cells (Auto) 7.0 /HPF (0-13.0) 07/03/18 Unknown 1+ /HPF (Negative) 06/24/18 13:00 Few /HPF 07/03/18 Unknown Vancomycin Trough 38.9 ug/mL (5.0-20.0) H 07/05/18 10:57 Blood Type O POSITIVE 07/04/18 17:54 Antibody Screen TNR 07/04/18 17:54 FADY Antibody Screen Negative 07/04/18 17:54 Crossmatch See Detail 07/04/18 17:54 Crossmatch See Detail 07/04/18 17:54 Active Medications - Current Medications Current Medications: Generic Name Dose Route Start Last Admin Trade Name Freq PRN Reason Stop Dose Admin Albuterol 2.5 mg 07/02/18 07:44 Proventil IH Q4HRT PRN Shortness Of Breath Albuterol/Ipratropium 1 ampul 07/02/18 14:00 07/08/18 13:34 Duoneb *Not For Prn Use* IH 1 ampul TIDRT MAURICIO Administration Budesonide 0.5 mg 07/02/18 20:00 07/08/18 07:14 Pulmicort IH 0.5 mg Q12HRT MAURICIO Administration Fentanyl 25 mcg 06/30/18 14:19 Sublimaze IV Q2H PRN Pain, Moderate (4-6) Hydrophilic Ointment 1 applic 07/04/18 18:23 Vaseline Lip Therapy TP Q2HR PRN Dry Lips Metronidazole 500 mg in 100 mls @ 100 mls/hr 06/24/18 22:00 07/08/18 13:38 Flagyl 500 Mg/100 Ml IV 100 mls/hr Q8H MAURICIO Administration Protocol Fluconazole 200 mls @ 100 mls/hr 06/26/18 14:00 07/08/18 12:00 Diflucan IV Infused Q24HR MAURICIO Infusion Protocol Cefepime HCl 2 gm in 100 mls @ 200 mls/hr 06/27/18 14:00 07/08/18 10:30 Maxipime/Ns 2 Gm/100 Ml IV Infused Q12HR MAURICIO Infusion Protocol Fentanyl Citrate 2,000 mcg in 100 mls @ 2.605 mls/hr 07/04/18 19:00 07/08/18 05:27 Fentanyl Drip Premix IV 3 mcg/kg/hr TITR MAURICIO 7.815 mls/hr Administration Protocol 1 MCG/KG/HR Propofol 1,000 mg in 100 mls @ 1.563 mls/hr 07/04/18 19:00 07/08/18 09:00 Diprivan 10 Mg/Ml IV 0 mcg/kg/min TITR MAURICIO 0 mls/hr Titration Protocol 5 MCG/KG/MIN Amino Acids/Electrolytes/Dextrose 1,800 mls @ 75 mls/hr 07/07/18 20:00 07/07/18 21:18 Tpn Adult IV 07/08/18 19:59 75 mls/hr DAILY@1999 MAURICIO Administration Protocol Heparin Sodium/Sodium Chloride 25,000 unit in 500 mls @ 15 mls/hr 07/07/18 14:00 07/08/18 06:45 Heparin/ 0.45% Nacl-25,000 Unit/500 Ml IV 1,450 units/hr TITR MAURICIO 29 mls/hr Administration Protocol 750 UNITS/HR Amino Acids/Electrolytes/Dextrose 1,800 mls @ 75 mls/hr 07/08/18 20:00 Tpn Adult IV 07/09/18 19:59 DAILY@1999 [facility] Protocol Multi-Ingred Cream/Lotion/Oil/Oint 1 applic 07/04/18 18:23 Artificial Tears Ophth Oint OU Q4HR PRN Dry Eye(s) Naloxone HCl 0.1 mg 06/24/18 18:55 Narcan 0.4 Mg/1 Ml IV Q2MIN PRN Res Rate </= 8 or 02 SAT < 92% Nicotine 14 mg 06/25/18 10:00 07/08/18 10:00 Habitrol TD 14 mg QDAY MAURICIO Administration Ondansetron HCl 4 mg 06/24/18 14:00 06/29/18 04:00 Zofran IV 4 mg Q8H PRN Administration Nausea And Vomiting Pantoprazole Sodium 40 mg 07/04/18 22:00 07/08/18 10:00 Protonix IV 40 mg BID MAURICIO Administration Sodium Chloride 10 ml 06/24/18 22:00 07/08/18 10:00 Sodium Chloride Flush Syringe 10 Ml IV 10 ml BID MAURICIO Administration Sodium Chloride 10 ml 06/24/18 14:00 07/07/18 16:07 Sodium Chloride Flush Syringe 10 Ml IV 10 ml PRN PRN Administration LINE FLUSH Sodium Chloride 5 ml 07/04/18 18:23 Nacl 0.9% 500 Ml IV 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 Percent of energy/protein needs met: 50%/100% Burn Absent Trauma Absent #2 Nutrition Diagnosis Inadequate oral intake Diagnosis Progress(for reassessment Continues documentation) #1 Nutrition Diagnosis Increased nutrient needs ( specify in comment below) Diagnosis Progress(for reassessment Continues documentation) Is patient on ventilator? Yes Is Patient Ambulatory and/or Out of Bed No REE-([place]-confined to bed) 1289.088 Kcal/Kg value to use for calculation 33 Approximate Energy Requirements Using 1719 kcal/Kg Calculation Used for Recommendations Kcal/kg Additional Notes Pro needs 1.2-2/k-104g/ day Fluid needs 1ml/kcal Nutrition Intervention Change Diet Order: CPN Nutrition Support: Change to CPN at 75ml/hr: Na 149mEq, 81mEq K, 5mEq Mg, 32mmol phos, MVI, thiamine Osmolality: 1133 Kcal 760 Protein (gm) 105 Carbohydrates (gm) 100 Fat (gm) 0 Fluid (mL) 1,800 Fiber (gm) 0 Goal #1 Meet at least 80% of kcal and protein needs as best as possible Anticipated Discharge Needs: home TPN Follow-Up By: 07/08/18 Additional Comments Labs in AM: BMP, Mg, Phos
[2018-07-08] MEDS ORDERED: TPN ADULT 1,800 ML IV SCH (20:00)
--- NOTE | 2018-07-08 22:33 | Event Note ---
Date: 07/07/18 [id number]
--- NOTE | 2018-07-09 01:38 | Consultation ---
REFERRED BY: ____ REASON FOR CONSULTATION: Thrombus in the abdominal vessels, postoperative question of this being heparin-induced thrombocytosis. HISTORY OF PRESENT ILLNESS: I saw the patient, a 58-year-old female in the ICU. The patient was in postoperative state, but alert and following simple commands. The patient had come to the hospital on 06/24/2018 for abdominal pain for 1 week. Partial small-bowel obstruction was found and the patient admitted for evaluation. The patient was seen by General Surgery team, ID team, Pulmonary. 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 She was again taken back for surgery with partial colon resection. She was placed on IV heparin and PICC line for TPN. She underwent another surgery on 07/07/2018, 8 cm of necrotic small bowel was resected. She received blood transfusion support. Heparin antibodies test is negative. However, due to the thrombosis, I have been asked to evaluate the patient. REVIEW OF SYSTEMS: The patient is intubated, but awake. Review of systems is not reliable. Most of the information comes from the medical notes. PAST SURGICAL HISTORY: Includes no significant. SOCIAL HISTORY: Single, smoking history present. ALLERGIES: None. MEDICATIONS: Included nebulizers, cefepime, fentanyl, heparin and Flagyl. PHYSICAL EXAMINATION: VITAL SIGNS: Includes a temperature 98, pulse 130, respirations 18, BP 122/79. HEENT: Pallor present, no icterus, intubated. HEART: S1, S2. LUNGS: Clear to auscultation anteriorly. ABDOMEN: Postoperative. NEUROLOGIC: Awake. LABORATORY DATA: White cell 19, hemoglobin 7.2, MCV 89, platelets 517. Serum iron 40, ferritin 377, B12 of 924, folate 4.9. 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 ASSESSMENT: 1. 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 The patient is on heparin drip. The thrombosis may be secondary to postoperative state smoking. Heparin antibody testing was negative. 2. Anemia. 3. Postoperative ____. 4. Colon resection. 5. Leukocytosis. 6. Nicotine dependence. 7. History of smoking. 8. Electrolyte issues. 9. Low folate. I will follow the patient during inpatient stay. Supportive care as needed at this time. For the 80% narrowing of the aorta, unstable. We will discuss with other physicians. JOB# [id number] JOSE/ROSIE
[2018-07-09] MEDS: fentaNYL DRIP Premix 2,000 MCG/100 ML BAG IV SCH ×3 (03:08→16:37)
--- NOTE | 2018-07-09 04:43 | XRay Report ---
PROCEDURE: XR CHEST 1V AP TECHNIQUE: Chest radiograph single view. HISTORY: follow up respiratory failure COMPARISONS: July 08, 2018 . FINDINGS: Heart: Normal. Mediastinum/Vessels: Normal. Lungs/Pleural space: Lungs are expanded. There are faint opacities at the right lung apex which coul d be infiltrates. There is no pleural effusion or pneumothorax.. Bony thorax: No acute osseous abnormality. Life support devices: Endotracheal tube is in the mid trachea. NG tube is in the stomach. There is a right-sided PICC line. The tip is in the superior vena cava.. IMPRESSION: The heart size is normal.. Lungs are expanded. There are faint opacities at the right lung apex which could be infiltrates. Ther e is no pleural effusion or pneumothorax.. Endotracheal tube is in the mid trachea. NG tube is in the stomach. There is a right-sided PICC line. The tip is in the superior vena cava.. This document is electronically signed by Trae Mendoza MD., July 09 2018 05:41:25 AM ET
[2018-07-09] MEDS: FLAGYL 500 MG/100 ML 500 MG/100 ML BAG IV SCH ×3 (05:11→21:56)
[2018-07-09 06:38] LABS: Hematocrit 25.6 % (30.3-42.9); Hemoglobin 8.6 gm/dl (10.1-14.3)
[2018-07-09 07:36] LABS: BUN/Creatinine Ratio 85; Blood Urea Nitrogen 17 mg/dL (7-17); Calcium 7.8 mg/dL (8.4-10.2); Hemolysis Index 13
[2018-07-09] MEDS: DUONEB *Not for PRN Use IH SCH ×3 (07:40→19:10)
[2018-07-09] MEDS: PULMICORT IH SCH ×2 (07:41→19:10)
--- NOTE | 2018-07-09 09:54 | Progress Note ---
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 Follow up report on 2th surgery more optimistic with more viable small bowel seen, per surgeon - re-exploratory laparotomy, prior small bowel resection, partial colon resection, temporary abdominal closure with abthera vac s/p acute bowel perforation, diverticulitis. Leukemoid reaction after the above.improving Suspected embolic triggered bowel ischemia Post op acute respiratory failure secondary to volume overload. On vent.ABG adequate COPD Hypokalemia Recommendations Potassium rider as needed, monitor electrolytes Nutritional support, add Albumin DC heparin prior to surgery tonight or tomorrow morning. Orders in. SBT this morning while tolerated. Hopefully, extubation Tuesday after surgery Antibiotics per ID. Sedation with propofol/fentanyl. Propofol is on hold during SBT, we'll continue with same strategy and allow the patient to rest overnight Maintain extubation precautions DVT prophylaxis Discussed with staff, family in detail. Critical care time was 31 minutes of [id number] evaluation and coordination of care Subjective Date of service: 07/09/18 Principal diagnosis: small bowel ischemiaperitonitis/penumonia Interval history: No shortness of breath, intubated Objective Vital Signs - 12hr 07/08/18 07/08/18 07/08/18 22:00 22:15 22:30 Temperature Pulse Rate 100 H 114 H 107 H Pulse Rate [ Anterior Bilateral Throughout] Pulse Rate [ From Monitor] Pulse Rate [ Left Dorsalis Pedis] Pulse Rate [ Right Dorsalis Pedis] Respiratory 18 13 18 Rate Respiratory Rate [Anterior Bilateral Throughout] Blood Pressure 96/55 111/67 115/60 O2 Sat by Pulse 98 98 99 Oximetry 07/08/18 07/08/18 07/08/18 22:45 23:00 23:09 Temperature Pulse Rate 108 H 103 H 109 H Pulse Rate [ Anterior Bilateral Throughout] Pulse Rate [ From Monitor] Pulse Rate [ Left Dorsalis Pedis] Pulse Rate [ Right Dorsalis Pedis] Respiratory 19 18 Rate Respiratory Rate [Anterior Bilateral Throughout] Blood Pressure 115/64 108/60 108/60 O2 Sat by Pulse 98 99 Oximetry 07/08/18 07/08/18 07/08/18 23:15 23:30 23:44 Temperature 98.8 F Pulse Rate 110 H 106 H Pulse Rate [ Anterior Bilateral Throughout] Pulse Rate [ From Monitor] Pulse Rate [ Left Dorsalis Pedis] Pulse Rate [ Right Dorsalis Pedis] Respiratory 19 22 Rate Respiratory Rate [Anterior Bilateral Throughout] Blood Pressure 118/61 106/61 O2 Sat by Pulse 98 99 Oximetry 07/08/18 07/08/18 07/08/18 23:45 23:46 23:47 Temperature Pulse Rate 104 H 103 H Pulse Rate [ Anterior Bilateral Throughout] Pulse Rate [ 118 H From Monitor] Pulse Rate [ 103 H Left Dorsalis Pedis] Pulse Rate [ 103 H Right Dorsalis Pedis] Respiratory 17 19 Rate Respiratory Rate [Anterior Bilateral Throughout] Blood Pressure 109/55 O2 Sat by Pulse 99 22 L Oximetry 07/09/18 07/09/18 07/09/18 00:00 00:15 00:30 Temperature Pulse Rate 97 H 96 H 94 H Pulse Rate [ Anterior Bilateral Throughout] Pulse Rate [ From Monitor] Pulse Rate [ Left Dorsalis Pedis] Pulse Rate [ Right Dorsalis Pedis] Respiratory 21 18 23 Rate Respiratory Rate [Anterior Bilateral Throughout] Blood Pressure 106/54 92/54 91/52 O2 Sat by Pulse 100 99 100 Oximetry 07/09/18 07/09/18 07/09/18 00:45 01:00 01:15 Temperature Pulse Rate 107 H 102 H 100 H Pulse Rate [ Anterior Bilateral Throughout] Pulse Rate [ From Monitor] Pulse Rate [ Left Dorsalis Pedis] Pulse Rate [ Right Dorsalis Pedis] Respiratory 15 19 18 Rate Respiratory Rate [Anterior Bilateral Throughout] Blood Pressure 106/71 115/65 100/61 O2 Sat by Pulse 99 99 Oximetry 07/09/18 07/09/18 07/09/18 01:30 01:45 02:01 Temperature Pulse Rate 96 H 94 H 108 H Pulse Rate [ Anterior Bilateral Throughout] Pulse Rate [ From Monitor] Pulse Rate [ Left Dorsalis Pedis] Pulse Rate [ Right Dorsalis Pedis] Respiratory 17 18 18 Rate Respiratory Rate [Anterior Bilateral Throughout] Blood Pressure 98/58 101/56 126/76 O2 Sat by Pulse 99 100 99 Oximetry 07/09/18 07/09/18 07/09/18 02:15 02:30 02:45 Temperature Pulse Rate 102 H 102 H 106 H Pulse Rate [ Anterior Bilateral Throughout] Pulse Rate [ From Monitor] Pulse Rate [ Left Dorsalis Pedis] Pulse Rate [ Right Dorsalis Pedis] Respiratory 19 13 20 Rate Respiratory Rate [Anterior Bilateral Throughout] Blood Pressure 110/57 120/63 115/64 O2 Sat by Pulse 98 99 Oximetry 07/09/18 07/09/18 07/09/18 03:00 03:15 03:19 Temperature Pulse Rate 107 H 103 H 103 H Pulse Rate [ Anterior Bilateral Throughout] Pulse Rate [ From Monitor] Pulse Rate [ Left Dorsalis Pedis] Pulse Rate [ Right Dorsalis Pedis] Respiratory 19 18 Rate Respiratory Rate [Anterior Bilateral Throughout] Blood Pressure 108/62 104/60 104/60 O2 Sat by Pulse 99 Oximetry 07/09/18 07/09/18 07/09/18 03:30 03:36 03:45 Temperature 98.4 F Pulse Rate 108 H 98 H Pulse Rate [ Anterior Bilateral Throughout] Pulse Rate [ From Monitor] Pulse Rate [ Left Dorsalis Pedis] Pulse Rate [ Right Dorsalis Pedis] Respiratory 18 18 Rate Respiratory Rate [Anterior Bilateral Throughout] Blood Pressure 105/72 97/54 O2 Sat by Pulse 99 99 Oximetry 07/09/18 07/09/18 07/09/18 04:00 04:15 04:30 Temperature Pulse Rate 96 H 94 H 95 H Pulse Rate [ Anterior Bilateral Throughout] Pulse Rate [ 118 H From Monitor] Pulse Rate [ 118 H Left Dorsalis Pedis] Pulse Rate [ 118 H Right Dorsalis Pedis] Respiratory 18 18 17 Rate Respiratory Rate [Anterior Bilateral Throughout] Blood Pressure 96/56 97/56 98/59 O2 Sat by Pulse 99 100 Oximetry 07/09/18 07/09/18 07/09/18 04:45 05:00 05:15 Temperature Pulse Rate 94 H 88 97 H Pulse Rate [ Anterior Bilateral Throughout] Pulse Rate [ From Monitor] Pulse Rate [ Left Dorsalis Pedis] Pulse Rate [ Right Dorsalis Pedis] Respiratory 18 18 18 Rate Respiratory Rate [Anterior Bilateral Throughout] Blood Pressure 98/59 94/57 109/62 O2 Sat by Pulse 100 99 Oximetry 07/09/18 07/09/18 07/09/18 05:30 05:45 06:00 Temperature Pulse Rate 96 H 94 H 92 H Pulse Rate [ Anterior Bilateral Throughout] Pulse Rate [ From Monitor] Pulse Rate [ Left Dorsalis Pedis] Pulse Rate [ Right Dorsalis Pedis] Respiratory 14 18 12 Rate Respiratory Rate [Anterior Bilateral Throughout] Blood Pressure 106/61 94/56 101/57 O2 Sat by Pulse 99 100 Oximetry 07/09/18 07/09/1807/09/19 06:15 07:41 08:00 Temperature 97.6 F Pulse Rate 90 101 H Pulse Rate [ 103 H Anterior Bilateral Throughout] Pulse Rate [ From Monitor] Pulse Rate [ Left Dorsalis Pedis] Pulse Rate [ Right Dorsalis Pedis] Respiratory 5 L Rate Respiratory 20 Rate [Anterior Bilateral Throughout] Blood Pressure 98/55 124/59 O2 Sat by Pulse 100 100 Oximetry Constitutional: no acute distress, alert Eyes: non-icteric ENT: oropharynx moist, other (ETT in position) Neck: supple, no JVD Effort: normal Ascultation: Bilateral: clear, diminished breath sounds, wheezes, rales Percussion: Bilateral: not dull Tactile fremitus: Bilateral: normal Cardiovascular: regular rate and rhythm Gastrointestinal: hypoactive bowel sounds, tender, other (mildly distended,open wound covered exploratory lab,colostomy) Integumentary: normal Extremities: no cyanosis, no edema Neurologic: normal mental status, non-focal exam Psychiatric: mood appropriate CBC and BMP: 07/09/18 05:30 07/09/18 05:30 ABG, PT/INR, D-dimer: ABG POC ABG pH 7.437 (7.35-7.45) 07/09/18 04:37 POC ABG pCO2 46.9 (35-45) H 07/09/18 04:37 POC ABG pO2 120 (80-105) H 07/09/18 04:37 POC ABG HCO3 31.6 (22-26 mml/L) 07/09/18 04:37 POC ABG Total CO2 33 (23-27mmol/L) 07/09/18 04:37 POC ABG O2 Sat 99 07/09/18 04:37 PT/INR, D-dimer PT 15.2 Sec. (12.2-14.9) H 07/07/18 15:20 INR 1.13 (0.87-1.13) 07/07/18 15:20 Abnormal lab findings: Abnormal Labs 06/24/18 06/24/18 06/24/18 11:18 11:19 11:19 WBC 19.0 H RBC Hgb Hct MCHC 35 H RDW Plt Count 457 H Seg Neuts % (Manual) 88.0 H Lymphocytes % (Manual) 2.0 L Seg Neutrophils # Man 16.7 H Lymphocytes # (Manual) 0.4 L Monocytes # (Manual) PT 15.9 H INR 1.19 H APTT Heparin Anti-Xa Level POC ABG pH POC ABG pCO2 POC ABG pO2 Sodium 136 L Potassium 2.8 L* Chloride 96.7 L Carbon Dioxide BUN Creatinine 0.4 L Glucose 146 H POC Glucose Calcium Phosphorus TIBC Total Bilirubin 1.90 H Direct Bilirubin 1.5 H Alkaline Phosphatase 264 H C-Reactive Protein NT-Pro-B Natriuret Pep Total Protein Albumin 3.0 L Lipase 8 L Vitamin B12 Folate Ur Specific [place] Vancomycin Trough Crossmatch 06/24/18 06/24/18 06/25/18 13:00 19:47 06:55 WBC 18.3 H RBC Hgb Hct MCHC 35 H RDW Plt Count 481 H Seg Neuts % (Manual) 88.0 H Lymphocytes % (Manual) 4.0 L Seg Neutrophils # Man 16.1 H Lymphocytes # (Manual) 0.7 L Monocytes # (Manual) PT INR APTT Heparin Anti-Xa Level POC ABG pH POC ABG pCO2 POC ABG pO2 Sodium Potassium 3.5 L D Chloride Carbon Dioxide 21 L BUN Creatinine 0.3 L Glucose 166 H POC Glucose Calcium 7.4 L D Phosphorus TIBC Total Bilirubin Direct Bilirubin Alkaline Phosphatase C-Reactive Protein NT-Pro-B Natriuret Pep Total Protein Albumin Lipase Vitamin B12 Folate Ur Specific [place] > 1.059 H Vancomycin Trough Crossmatch 06/25/18 06/26/18 06/26/18 06:55 11:54 11:54 WBC 19.9 H RBC 3.48 L Hgb Hct MCHC RDW Plt Count 583 H Seg Neuts % (Manual) Lymphocytes % (Manual) Seg Neutrophils # Man Lymphocytes # (Manual) Monocytes # (Manual) PT INR APTT Heparin Anti-Xa Level POC ABG pH POC ABG pCO2 POC ABG pO2 Sodium 146 H Potassium 3.5 L Chloride 108.3 H 109.9 H Carbon Dioxide BUN Creatinine 0.4 L 0.3 L Glucose 159 H 153 H POC Glucose Calcium 7.7 L 8.2 L Phosphorus TIBC Total Bilirubin Direct Bilirubin Alkaline Phosphatase 152 H C-Reactive Protein NT-Pro-B Natriuret Pep Total Protein 5.3 L Albumin 2.1 L Lipase Vitamin B12 Folate Ur Specific [place] Vancomycin Trough Crossmatch 06/26/18 06/26/1819 14:12 20:37 02:04 WBC RBC Hgb Hct MCHC RDW Plt Count Seg Neuts % (Manual) Lymphocytes % (Manual) Seg Neutrophils # Man Lymphocytes # (Manual) Monocytes # (Manual) PT INR APTT Heparin Anti-Xa Level POC ABG pH 7.471 H 7.458 H POC ABG pCO2 POC ABG pO2 74 L 70 L Sodium Potassium Chloride Carbon Dioxide BUN Creatinine Glucose POC Glucose Calcium Phosphorus TIBC Total Bilirubin Direct Bilirubin Alkaline Phosphatase C-Reactive Protein 25.70 H NT-Pro-B Natriuret Pep Total Protein Albumin Lipase Vitamin B12 Folate Ur Specific [place] Vancomycin Trough Crossmatch 06/27/18 06/27/18 06/28/18 09:19 11:50 00:17 WBC 24.5 H 37.2 H RBC Hgb Hct MCHC RDW 15.4 H Plt Count 583 H 657 H Seg Neuts % (Manual) 98.0 H 88.5 H Lymphocytes % (Manual) 1.0 L 4.0 L Seg Neutrophils # Man 24.0 H 32.9 H Lymphocytes # (Manual) 0.2 L Monocytes # (Manual) 1.1 H PT INR APTT Heparin Anti-Xa Level POC ABG pH POC ABG pCO2 POC ABG pO2 Sodium 146 H Potassium 3.5 L Chloride Carbon Dioxide BUN Creatinine 0.3 L Glucose 176 H POC Glucose Calcium 8.2 L Phosphorus TIBC Total Bilirubin Direct Bilirubin Alkaline Phosphatase C-Reactive Protein NT-Pro-B Natriuret Pep Total Protein Albumin Lipase Vitamin B12 Folate Ur Specific [place] Vancomycin Trough Crossmatch 06/28/18 06/28/18 06/28/18 09:56 09:56 09:56 WBC 37.8 H RBC Hgb Hct MCHC RDW 15.3 H Plt Count 634 H Seg Neuts % (Manual) Lymphocytes % (Manual) Seg Neutrophils # Man Lymphocytes # (Manual) Monocytes # (Manual) PT INR APTT Heparin Anti-Xa Level POC ABG pH POC ABG pCO2 POC ABG pO2 Sodium 146 H Potassium 2.8 L* Chloride Carbon Dioxide 31 H BUN Creatinine 0.3 L Glucose 142 H POC Glucose Calcium 8.2 L Phosphorus TIBC Total Bilirubin Direct Bilirubin Alkaline Phosphatase C-Reactive Protein NT-Pro-B Natriuret Pep 1572 H Total Protein Albumin Lipase Vitamin B12 Folate Ur Specific [place] Vancomycin Trough Crossmatch 06/28/18 06/28/18 06/29/18 13:19 21:24 00:57 WBC 28.9 H RBC Hgb Hct MCHC RDW Plt Count 681 H Seg Neuts % (Manual) 93.0 H Lymphocytes % (Manual) 1.5 L Seg Neutrophils # Man 26.9 H Lymphocytes # (Manual) 0.4 L Monocytes # (Manual) PT INR APTT Heparin Anti-Xa Level POC ABG pH 7.470 H POC ABG pCO2 53.0 H POC ABG pO2 120 H Sodium Potassium 3.0 L Chloride Carbon Dioxide 33 H BUN Creatinine 0.3 L Glucose 116 H POC Glucose Calcium 8.2 L Phosphorus TIBC Total Bilirubin Direct Bilirubin Alkaline Phosphatase C-Reactive Protein NT-Pro-B Natriuret Pep Total Protein Albumin Lipase Vitamin B12 Folate Ur Specific [place] Vancomycin Trough Crossmatch 06/29/18 06/29/18 06/29/18 05:58 05:58 12:21 WBC 25.8 H RBC Hgb Hct MCHC RDW Plt Count 661 H Seg Neuts % (Manual) Lymphocytes % (Manual) Seg Neutrophils # Man Lymphocytes # (Manual) Monocytes # (Manual) PT INR APTT Heparin Anti-Xa Level POC ABG pH POC ABG pCO2 POC ABG pO2 Sodium Potassium 2.7 L* Chloride Carbon Dioxide 35 H BUN Creatinine 0.3 L Glucose 132 H POC Glucose 130 H Calcium 8.2 L Phosphorus TIBC Total Bilirubin Direct Bilirubin Alkaline Phosphatase C-Reactive Protein NT-Pro-B Natriuret Pep Total Protein Albumin Lipase Vitamin B12 Folate Ur Specific [place] Vancomycin Trough Crossmatch 06/29/18 06/29/18 06/30/18 17:53 18:52 05:02 WBC RBC Hgb Hct MCHC RDW Plt Count Seg Neuts % (Manual) Lymphocytes % (Manual) Seg Neutrophils # Man Lymphocytes # (Manual) Monocytes # (Manual) PT INR APTT Heparin Anti-Xa Level POC ABG pH POC ABG pCO2 POC ABG pO2 Sodium Potassium 3.1 L Chloride Carbon Dioxide 33 H BUN Creatinine 0.3 L Glucose 129 H POC Glucose 109 H 106 H Calcium 8.2 L Phosphorus TIBC Total Bilirubin Direct Bilirubin Alkaline Phosphatase C-Reactive Protein NT-Pro-B Natriuret Pep Total Protein Albumin Lipase Vitamin B12 Folate Ur Specific [place] Vancomycin Trough Crossmatch 06/30/18 06/30/18 06/30/18 07:19 07:19 16:17 WBC 23.1 H RBC Hgb Hct MCHC RDW Plt Count 652 H Seg Neuts % (Manual) Lymphocytes % (Manual) Seg Neutrophils # Man Lymphocytes # (Manual) Monocytes # (Manual) PT INR APTT Heparin Anti-Xa Level POC ABG pH POC ABG pCO2 POC ABG pO2 Sodium Potassium 2.8 L* Chloride Carbon Dioxide BUN Creatinine 0.3 L Glucose 109 H POC Glucose Calcium 8.2 L Phosphorus TIBC Total Bilirubin Direct Bilirubin Alkaline Phosphatase C-Reactive Protein NT-Pro-B Natriuret Pep Total Protein Albumin Lipase Vitamin B12 Folate Ur Specific [place] Vancomycin Trough < 4.0 L Crossmatch 06/30/18 06/30/18 06/30/18 16:17 16:17 19:00 WBC RBC Hgb Hct MCHC RDW Plt Count Seg Neuts % (Manual) Lymphocytes % (Manual) Seg Neutrophils # Man Lymphocytes # (Manual) Monocytes # (Manual) PT INR APTT Heparin Anti-Xa Level POC ABG pH POC ABG pCO2 POC ABG pO2 Sodium Potassium 3.0 L 3.2 L Chloride Carbon Dioxide BUN Creatinine 0.3 L Glucose 138 H POC Glucose Calcium Phosphorus 2.30 L D TIBC Total Bilirubin Direct Bilirubin Alkaline Phosphatase C-Reactive Protein NT-Pro-B Natriuret Pep Total Protein Albumin Lipase Vitamin B12 Folate Ur Specific [place] Vancomycin Trough Crossmatch 07/01/18 07/01/18 07/01/18 04:04 04:04 12:21 WBC 26.3 H RBC Hgb Hct MCHC RDW Plt Count Seg Neuts % (Manual) Lymphocytes % (Manual) Seg Neutrophils # Man Lymphocytes # (Manual) Monocytes # (Manual) PT INR APTT Heparin Anti-Xa Level POC ABG pH POC ABG pCO2 POC ABG pO2 Sodium 147 H Potassium Chloride Carbon Dioxide BUN 22 H Creatinine 0.3 L Glucose 126 H POC Glucose 190 H Calcium Phosphorus TIBC Total Bilirubin Direct Bilirubin Alkaline Phosphatase C-Reactive Protein NT-Pro-B Natriuret Pep Total Protein Albumin Lipase Vitamin B12 Folate Ur Specific [place] Vancomycin Trough Crossmatch 07/02/18 07/02/18 07/03/18 04:17 04:17 09:58 WBC 40.2 H* 48.6 H* RBC 3.51 L Hgb Hct MCHC RDW Plt Count Seg Neuts % (Manual) Lymphocytes % (Manual) Seg Neutrophils # Man Lymphocytes # (Manual) Monocytes # (Manual) PT INR APTT Heparin Anti-Xa Level POC ABG pH POC ABG pCO2 POC ABG pO2 Sodium Potassium 3.4 L Chloride Carbon Dioxide 32 H BUN 30 H Creatinine 0.3 L Glucose 166 H POC Glucose Calcium Phosphorus TIBC Total Bilirubin Direct Bilirubin Alkaline Phosphatase C-Reactive Protein NT-Pro-B Natriuret Pep Total Protein Albumin Lipase Vitamin B12 Folate Ur Specific [place] Vancomycin Trough Crossmatch 07/03/18 07/03/18 07/04/18 09:58 11:07 05:37 WBC 48.5 H* RBC 3.53 L Hgb Hct MCHC RDW Plt Count 477 H Seg Neuts % (Manual) Lymphocytes % (Manual) Seg Neutrophils # Man Lymphocytes # (Manual) Monocytes # (Manual) PT INR APTT Heparin Anti-Xa Level POC ABG pH POC ABG pCO2 POC ABG pO2 Sodium Potassium 3.5 L Chloride Carbon Dioxide 31 H BUN 33 H Creatinine 0.3 L Glucose 162 H POC Glucose Calcium Phosphorus TIBC Total Bilirubin Direct Bilirubin Alkaline Phosphatase C-Reactive Protein 13.20 H NT-Pro-B Natriuret Pep Total Protein Albumin Lipase Vitamin B12 Folate Ur Specific [place] Vancomycin Trough Crossmatch 07/04/18 07/04/18 07/04/18 05:37 17:54 17:54 WBC RBC Hgb Hct MCHC RDW Plt Count Seg Neuts % (Manual) Lymphocytes % (Manual) Seg Neutrophils # Man Lymphocytes # (Manual) Monocytes # (Manual) PT INR APTT Heparin Anti-Xa Level POC ABG pH POC ABG pCO2 POC ABG pO2 Sodium Potassium 3.4 L Chloride Carbon Dioxide 32 H BUN 30 H Creatinine 0.3 L Glucose 146 H POC Glucose Calcium Phosphorus TIBC Total Bilirubin Direct Bilirubin Alkaline Phosphatase C-Reactive Protein NT-Pro-B Natriuret Pep Total Protein Albumin Lipase Vitamin B12 Folate Ur Specific [place] Vancomycin Trough Crossmatch See Detail See Detail 07/04/18 07/04/18 07/04/18 19:00 19:00 21:50 WBC RBC Hgb 9.5 L Hct 28.7 L MCHC RDW Plt Count 512 H Seg Neuts % (Manual) Lymphocytes % (Manual) Seg Neutrophils # Man Lymphocytes # (Manual) Monocytes # (Manual) PT 18.7 H INR 1.46 H APTT Heparin Anti-Xa Level POC ABG pH 7.469 H POC ABG pCO2 45.8 H POC ABG pO2 109 H Sodium Potassium Chloride Carbon Dioxide BUN Creatinine Glucose POC Glucose Calcium Phosphorus TIBC Total Bilirubin Direct Bilirubin Alkaline Phosphatase C-Reactive Protein NT-Pro-B Natriuret Pep Total Protein Albumin Lipase Vitamin B12 Folate Ur Specific [place] Vancomycin Trough Crossmatch 07/05/18 07/05/18 07/05/18 03:14 03:14 03:14 WBC 36.6 H RBC 3.12 L Hgb 9.1 L Hct 27.5 L MCHC RDW Plt Count 529 H Seg Neuts % (Manual) Lymphocytes % (Manual) Seg Neutrophils # Man Lymphocytes # (Manual) Monocytes # (Manual) PT INR APTT Heparin Anti-Xa Level 0.10 L POC ABG pH POC ABG pCO2 POC ABG pO2 Sodium Potassium Chloride Carbon Dioxide BUN 29 H Creatinine 0.2 L Glucose 149 H POC Glucose Calcium 8.1 L Phosphorus TIBC Total Bilirubin Direct Bilirubin Alkaline Phosphatase C-Reactive Protein NT-Pro-B Natriuret Pep Total Protein 4.5 L Albumin 1.6 L Lipase Vitamin B12 Folate Ur Specific [place] Vancomycin Trough Crossmatch 07/05/18 07/05/18 07/05/18 04:45 10:57 10:57 WBC RBC Hgb Hct MCHC RDW Plt Count Seg Neuts % (Manual) Lymphocytes % (Manual) Seg Neutrophils # Man Lymphocytes # (Manual) Monocytes # (Manual) PT INR APTT Heparin Anti-Xa Level < 0.10 L POC ABG pH POC ABG pCO2 50.6 H POC ABG pO2 181 H Sodium Potassium Chloride Carbon Dioxide BUN Creatinine Glucose POC Glucose Calcium Phosphorus TIBC Total Bilirubin Direct Bilirubin Alkaline Phosphatase C-Reactive Protein NT-Pro-B Natriuret Pep Total Protein Albumin Lipase Vitamin B12 Folate Ur Specific [place] Vancomycin Trough 38.9 H Crossmatch 07/05/18 07/06/18 07/06/18 18:27 02:00 04:48 WBC RBC Hgb Hct MCHC RDW Plt Count Seg Neuts % (Manual) Lymphocytes % (Manual) Seg Neutrophils # Man Lymphocytes # (Manual) Monocytes # (Manual) PT INR APTT Heparin Anti-Xa Level < 0.10 L 0.23 L POC ABG pH POC ABG pCO2 POC ABG pO2 118 H Sodium Potassium Chloride Carbon Dioxide BUN Creatinine Glucose POC Glucose Calcium Phosphorus TIBC Total Bilirubin Direct Bilirubin Alkaline Phosphatase C-Reactive Protein NT-Pro-B Natriuret Pep Total Protein Albumin Lipase Vitamin B12 Folate Ur Specific [place] Vancomycin Trough Crossmatch 07/06/18 07/06/18 07/06/18 05:00 05:00 12:05 WBC 23.1 H RBC 2.50 L Hgb 7.3 L Hct 22.3 L MCHC RDW Plt Count 541 H Seg Neuts % (Manual) Lymphocytes % (Manual) Seg Neutrophils # Man Lymphocytes # (Manual) Monocytes # (Manual) PT INR APTT Heparin Anti-Xa Level 0.14 L POC ABG pH POC ABG pCO2 POC ABG pO2 Sodium Potassium Chloride 109.8 H Carbon Dioxide BUN 27 H Creatinine 0.2 L Glucose 157 H POC Glucose Calcium 7.7 L Phosphorus 1.60 L TIBC Total Bilirubin Direct Bilirubin Alkaline Phosphatase C-Reactive Protein NT-Pro-B Natriuret Pep Total Protein 4.5 L Albumin 1.7 L Lipase Vitamin B12 Folate Ur Specific [place] Vancomycin Trough Crossmatch 07/06/18 07/06/18 07/07/18 17:29 19:45 00:17 WBC RBC Hgb Hct MCHC RDW Plt Count Seg Neuts % (Manual) Lymphocytes % (Manual) Seg Neutrophils # Man Lymphocytes # (Manual) Monocytes # (Manual) PT INR APTT Heparin Anti-Xa Level 0.18 L POC ABG pH POC ABG pCO2 POC ABG pO2 Sodium Potassium Chloride Carbon Dioxide BUN Creatinine Glucose POC Glucose 141 H 143 H Calcium Phosphorus TIBC Total Bilirubin Direct Bilirubin Alkaline Phosphatase C-Reactive Protein NT-Pro-B Natriuret Pep Total Protein Albumin Lipase Vitamin B12 Folate Ur Specific [place] Vancomycin Trough Crossmatch 07/07/18 07/07/18 07/07/18 02:14 02:14 05:09 WBC RBC Hgb Hct MCHC RDW Plt Count Seg Neuts % (Manual) Lymphocytes % (Manual) Seg Neutrophils # Man Lymphocytes # (Manual) Monocytes # (Manual) PT INR APTT Heparin Anti-Xa Level < 0.10 L POC ABG pH POC ABG pCO2 POC ABG pO2 Sodium Potassium 3.4 L Chloride Carbon Dioxide BUN Creatinine < 0.2 L Glucose 127 H POC Glucose 126 H Calcium 7.6 L Phosphorus 2.10 L D TIBC Total Bilirubin Direct Bilirubin Alkaline Phosphatase C-Reactive Protein NT-Pro-B Natriuret Pep Total Protein Albumin Lipase Vitamin B12 Folate Ur Specific [place] Vancomycin Trough Crossmatch 0507/07/18 07/07/18 07:08 10:57 11:50 WBC 19.3 H RBC 2.49 L Hgb 7.2 L Hct 22.2 L MCHC RDW Plt Count 517 H Seg Neuts % (Manual) Lymphocytes % (Manual) Seg Neutrophils # Man Lymphocytes # (Manual) Monocytes # (Manual) PT INR APTT Heparin Anti-Xa Level POC ABG pH POC ABG pCO2 POC ABG pO2 Sodium Potassium Chloride Carbon Dioxide BUN Creatinine Glucose POC Glucose 115 H Calcium Phosphorus TIBC 94 L Total Bilirubin Direct Bilirubin Alkaline Phosphatase C-Reactive Protein NT-Pro-B Natriuret Pep Total Protein Albumin Lipase Vitamin B12 Folate Ur Specific [place] Vancomycin Trough Crossmatch 07/07/18 07/07/18 07/07/18 11:50 11:50 15:20 WBC RBC Hgb Hct MCHC RDW Plt Count 489 H Seg Neuts % (Manual) Lymphocytes % (Manual) Seg Neutrophils # Man Lymphocytes # (Manual) Monocytes # (Manual) PT INR APTT Heparin Anti-Xa Level POC ABG pH POC ABG pCO2 POC ABG pO2 Sodium Potassium Chloride Carbon Dioxide BUN Creatinine Glucose POC Glucose Calcium Phosphorus TIBC Total Bilirubin Direct Bilirubin Alkaline Phosphatase C-Reactive Protein NT-Pro-B Natriuret Pep Total Protein Albumin Lipase Vitamin B12 924.8 H Folate 4.92 L Ur Specific [place] Vancomycin Trough Crossmatch 07/07/18 07/07/18 07/07/18 15:20 18:16 20:04 WBC RBC Hgb Hct MCHC RDW Plt Count Seg Neuts % (Manual) Lymphocytes % (Manual) Seg Neutrophils # Man Lymphocytes # (Manual) Monocytes # (Manual) PT 15.2 H INR APTT 42.2 H Heparin Anti-Xa Level < 0.10 L POC ABG pH POC ABG pCO2 POC ABG pO2 Sodium Potassium Chloride Carbon Dioxide BUN Creatinine Glucose POC Glucose 125 H Calcium Phosphorus TIBC Total Bilirubin Direct Bilirubin Alkaline Phosphatase C-Reactive Protein NT-Pro-B Natriuret Pep Total Protein Albumin Lipase Vitamin B12 Folate Ur Specific [place] Vancomycin Trough Crossmatch 07/08/18 07/08/18 07/08/18 01:07 03:40 03:40 WBC RBC Hgb Hct MCHC RDW Plt Count 477 H Seg Neuts % (Manual) Lymphocytes % (Manual) Seg Neutrophils # Man Lymphocytes # (Manual) Monocytes # (Manual) PT INR APTT Heparin Anti-Xa Level POC ABG pH POC ABG pCO2 POC ABG pO2 Sodium Potassium Chloride Carbon Dioxide BUN Creatinine < 0.2 L Glucose 161 H POC Glucose 132 H Calcium 7.9 L Phosphorus TIBC Total Bilirubin Direct Bilirubin Alkaline Phosphatase C-Reactive Protein NT-Pro-B Natriuret Pep Total Protein Albumin Lipase Vitamin B12 Folate Ur Specific [place] Vancomycin Trough Crossmatch 07/08/18 07/08/18 07/08/18 06:16 11:35 17:28 WBC RBC Hgb Hct MCHC RDW Plt Count Seg Neuts % (Manual) Lymphocytes % (Manual) Seg Neutrophils # Man Lymphocytes # (Manual) Monocytes # (Manual) PT INR APTT Heparin Anti-Xa Level POC ABG pH POC ABG pCO2 POC ABG pO2 Sodium Potassium Chloride Carbon Dioxide BUN Creatinine Glucose POC Glucose 143 H 154 H 136 H Calcium Phosphorus TIBC Total Bilirubin Direct Bilirubin Alkaline Phosphatase C-Reactive Protein NT-Pro-B Natriuret Pep Total Protein Albumin Lipase Vitamin B12 Folate Ur Specific [place] Vancomycin Trough Crossmatch 07/08/18 07/09/18 07/09/18 23:12 04:37 05:30 WBC RBC Hgb 8.6 L Hct 25.6 L D MCHC RDW Plt Count 445 H Seg Neuts % (Manual) Lymphocytes % (Manual) Seg Neutrophils # Man Lymphocytes # (Manual) Monocytes # (Manual) PT INR APTT Heparin Anti-Xa Level POC ABG pH POC ABG pCO2 46.9 H POC ABG pO2 120 H Sodium Potassium Chloride Carbon Dioxide BUN Creatinine Glucose POC Glucose 146 H Calcium Phosphorus TIBC Total Bilirubin Direct Bilirubin Alkaline Phosphatase C-Reactive Protein NT-Pro-B Natriuret Pep Total Protein Albumin Lipase Vitamin B12 Folate Ur Specific Keno Vancomycin Trough Crossmatch 07/09/18 07/09/18 05:30 05:34 WBC RBC Hgb Hct MCHC RDW Plt Count Seg Neuts % (Manual) Lymphocytes % (Manual) Seg Neutrophils # Man Lymphocytes # (Manual) Monocytes # (Manual) PT INR APTT Heparin Anti-Xa Level POC ABG pH POC ABG pCO2 POC ABG pO2 Sodium Potassium 3.3 L D Chloride Carbon Dioxide 33 H BUN Creatinine < 0.2 L Glucose 145 H POC Glucose 149 H Calcium 7.8 L Phosphorus 2.40 L TIBC Total Bilirubin Direct Bilirubin Alkaline Phosphatase C-Reactive Protein NT-Pro-B Natriuret Pep Total Protein Albumin Lipase Vitamin B12 Folate Ur Specific Keno Vancomycin Trough Crossmatch
--- NOTE | 2018-07-09 10:08 | Progress Note ---
Assessment and Plan Cultures: 06/26/2018 Blood culture no growth 07/03/2018 Blood culture no growth so far 07/04/2018 Sputum usual respiratory kait Assessment: 58 y/o female with history of HTN, tobacco dependence admitted on 06/24/2018 due to a week history of severe abdominal pain, constipation and nausea. 1) Severe sepsis: Etiology most likely peritonitis from diverticular perforation and leukemoid reaction likely due to bowel ischemia. 2) Acute fecal peritonitis from diverticular perforation/abscess: went to OR on 06/24/2018 for Exploratory laparotomy, Ezequiel's for perforated sigmoid diver ticulitis with purulent peritonitis. 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 No pulsation in SMA, small bowel resection, partial colon resection, temporary abdominal closure with abthera vac on 07/04. Now again to OR on 07/07/2018, was found to have an 8 cm area of necrotic small bowel. Plans for re-trip to OR on Tuesday. 3) Bilateral pneumonia: ?aspiration v/s HAP on cefepime and vancomycin. CTA showed scattered infiltrates identified in both lungs, this is most prominent in the right lower lung, slight bilateral effusions, no evidence of pulmonary arterial emboli. 4) Acute hypoxemic resp failure: currently on vent following OR trip. 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 remains on the vent. sedated. on tpn. Objective - Exam Narrative Exam: Physical Exam: Constitutional: sedated, intubated Head, Ears, Nose: Normocephalic, atraumatic. External ears, nose normal Eyes: Conjunctivae/corneas clear. No icterus. No ptosis. Neck: intubated Oral: intubated Cardiovascular: S1, S2 normal. Respiratory: Good air entry, clear to auscultation bilaterally GI: soft, colostomy +, midline woundVAC, bowel sounds hypoactive Musculoskeletal: No pedal edema, no cyanosis. Skin: No rash or abscess Hem/Lymphatic: No palpable cervical or supraclavicular nodes. No lymphangitis Psych: no agitation Neurological: sedated, on vent. - Constitutional Vitals: Vital Signs Temp Pulse Resp BP Pulse Ox 97.6 F 103 H 20 124/59 100 07/09/18 08:00 07/09/18 07:41 07/09/18 07:41 07/09/18 07:41 07/09/18 07:41 Temperature -Last 24 Hours Temperature 97.6 F Temperature 98.4 F Temperature 98.8 F Temperature 98.7 F Temperature 98.5 F Temperature 98.3 F Temperature 98.3 F - Labs CBC & Chem 7: 07/09/18 05:30 07/09/18 05:30 Labs: Abnormal lab results 07/08/18 07/08/18 07/08/18 Range/Units 11:35 17:28 23:12 Hgb (10.1-14.3) gm/dl Hct (30.3-42.9) % Plt Count (140-440) K/mm3 POC ABG pCO2 (35-45) POC ABG pO2 (80-105) Potassium (3.6-5.0) mmol/L Carbon Dioxide (22-30) mmol/L Creatinine (0.7-1.2) mg/dL Glucose (65-100) mg/dL POC Glucose 154 H 136 H 146 H (70-105) Calcium (8.4-10.2) mg/dL Phosphorus (2.5-4.5) mg/dL 07/09/18 07/09/18 07/09/18 Range/Units 04:37 05:30 05:30 Hgb 8.6 L (10.1-14.3) gm/dl Hct 25.6 L D (30.3-42.9) % Plt Count 445 H (140-440) K/mm3 POC ABG pCO2 46.9 H (35-45) POC ABG pO2 120 H (80-105) Potassium 3.3 L D (3.6-5.0) mmol/L Carbon Dioxide 33 H (22-30) mmol/L Creatinine < 0.2 L (0.7-1.2) mg/dL Glucose 145 H (65-100) mg/dL POC Glucose (70-105) Calcium 7.8 L (8.4-10.2) mg/dL Phosphorus 2.40 L (2.5-4.5) mg/dL 07/09/18 Range/Units 05:34 Hgb (10.1-14.3) gm/dl Hct (30.3-42.9) % Plt Count (140-440) K/mm3 POC ABG pCO2 (35-45) POC ABG pO2 (80-105) Potassium (3.6-5.0) mmol/L Carbon Dioxide (22-30) mmol/L Creatinine (0.7-1.2) mg/dL Glucose (65-100) mg/dL POC Glucose 149 H (70-105) Calcium (8.4-10.2) mg/dL Phosphorus (2.5-4.5) mg/dL
[2018-07-09] MEDS: HABITROL TD SCH (10:37)
[2018-07-09] MEDS: PROTONIX IV SCH ×2 (10:38→21:52)
[2018-07-09] MEDS: DIFLUCAN 200 ML IV SCH (10:38)
[2018-07-09] MEDS: MAXIPIME/NS 2 GM/100 ML 2 GM/100 ML BAG IV SCH ×2 (10:38→21:53)
--- NOTE | 2018-07-09 11:31 | Progress Note ---
Assessment and Plan - Patient Problems (1) Perforated viscus Current Visit: Yes Status: Acute Plan to address problem: 58 yo F s/p 1) exploratory laparotomy, small bowel resection with primary anastamosis, right hemicolectomy with ileocolonic anastamosis, temporary closure of abdomen with abthera vac 07/07/18 - POD#2; 2) Exploratory laparotomy, small bowel resection, partial colon resection, temporary abdominal closure with abthera vac 07/04/18, POD 4; and 3) Exploratory laparotomy, Ezequiel's procedure 06/24/18 Plan: 1. continue vent, do not extubate 2. NPO 3. IVF 4. continue fent and propofol gtt 5. abthera vac to -125mmHg suction, do not remove 6. NGT to LIWS 7. continue heparin gtt 8. discussed TPN with rescue worker 9. IV abx - white count not checked today 10. will plan to return to OR on Monday 07/10 to reevaluate remaining bowel. Hold hepgtt 6 hours prior to surgery. Spoke with family at bedside. Subjective Date of service: 07/09/18 Patient Reports: Positive: no new complaints (no abdominal pain) Objective Vital Signs - 12hr 07/08/18 07/08/18 07/08/18 23:44 23:45 23:46 Temperature 98.8 F Pulse Rate 104 H 103 H Pulse Rate [ Anterior Bilateral Throughout] Pulse Rate [ From Monitor] Pulse Rate [ Left Dorsalis Pedis] Pulse Rate [ Right Dorsalis Pedis] Respiratory 17 Rate Respiratory Rate [Anterior Bilateral Throughout] Blood Pressure 109/55 O2 Sat by Pulse 99 Oximetry 07/08/18 07/09/18 07/09/18 23:47 00:00 00:15 Temperature Pulse Rate 97 H 96 H Pulse Rate [ Anterior Bilateral Throughout] Pulse Rate [ 118 H From Monitor] Pulse Rate [ 103 H Left Dorsalis Pedis] Pulse Rate [ 103 H Right Dorsalis Pedis] Respiratory 19 21 18 Rate Respiratory Rate [Anterior Bilateral Throughout] Blood Pressure 106/54 92/54 O2 Sat by Pulse 22 L 100 99 Oximetry 07/09/18 07/09/18 07/09/18 00:30 00:45 01:00 Temperature Pulse Rate 94 H 107 H 102 H Pulse Rate [ Anterior Bilateral Throughout] Pulse Rate [ From Monitor] Pulse Rate [ Left Dorsalis Pedis] Pulse Rate [ Right Dorsalis Pedis] Respiratory 23 15 19 Rate Respiratory Rate [Anterior Bilateral Throughout] Blood Pressure 91/52 106/71 115/65 O2 Sat by Pulse 100 99 Oximetry 07/09/18 07/09/18 07/09/18 01:15 01:30 01:45 Temperature Pulse Rate 100 H 96 H 94 H Pulse Rate [ Anterior Bilateral Throughout] Pulse Rate [ From Monitor] Pulse Rate [ Left Dorsalis Pedis] Pulse Rate [ Right Dorsalis Pedis] Respiratory 18 17 18 Rate Respiratory Rate [Anterior Bilateral Throughout] Blood Pressure 100/61 98/58 101/56 O2 Sat by Pulse 99 99 100 Oximetry 07/09/18 07/09/18 07/09/18 02:01 02:15 02:30 Temperature Pulse Rate 108 H 102 H 102 H Pulse Rate [ Anterior Bilateral Throughout] Pulse Rate [ From Monitor] Pulse Rate [ Left Dorsalis Pedis] Pulse Rate [ Right Dorsalis Pedis] Respiratory 18 19 13 Rate Respiratory Rate [Anterior Bilateral Throughout] Blood Pressure 126/76 110/57 120/63 O2 Sat by Pulse 99 98 99 Oximetry 07/09/18 07/09/18 07/09/18 02:45 03:00 03:15 Temperature Pulse Rate 106 H 107 H 103 H Pulse Rate [ Anterior Bilateral Throughout] Pulse Rate [ From Monitor] Pulse Rate [ Left Dorsalis Pedis] Pulse Rate [ Right Dorsalis Pedis] Respiratory 20 19 18 Rate Respiratory Rate [Anterior Bilateral Throughout] Blood Pressure 115/64 108/62 104/60 O2 Sat by Pulse Oximetry 07/09/18 07/09/18 07/09/18 03:19 03:30 03:36 Temperature 98.4 F Pulse Rate 103 H 108 H Pulse Rate [ Anterior Bilateral Throughout] Pulse Rate [ From Monitor] Pulse Rate [ Left Dorsalis Pedis] Pulse Rate [ Right Dorsalis Pedis] Respiratory 18 Rate Respiratory Rate [Anterior Bilateral Throughout] Blood Pressure 104/60 105/72 O2 Sat by Pulse 99 99 Oximetry 07/09/18 07/09/18 07/09/18 03:45 04:00 04:15 Temperature Pulse Rate 98 H 96 H 94 H Pulse Rate [ Anterior Bilateral Throughout] Pulse Rate [ 118 H From Monitor] Pulse Rate [ 118 H Left Dorsalis Pedis] Pulse Rate [ 118 H Right Dorsalis Pedis] Respiratory 18 18 18 Rate Respiratory Rate [Anterior Bilateral Throughout] Blood Pressure 97/54 96/56 97/56 O2 Sat by Pulse 99 99 100 Oximetry 07/09/18 07/09/18 07/09/18 04:30 04:45 05:00 Temperature Pulse Rate 95 H 94 H 88 Pulse Rate [ Anterior Bilateral Throughout] Pulse Rate [ From Monitor] Pulse Rate [ Left Dorsalis Pedis] Pulse Rate [ Right Dorsalis Pedis] Respiratory 17 18 18 Rate Respiratory Rate [Anterior Bilateral Throughout] Blood Pressure 98/59 98/59 94/57 O2 Sat by Pulse 100 Oximetry 07/09/18 07/09/18 07/09/18 05:15 05:30 05:45 Temperature Pulse Rate 97 H 96 H 94 H Pulse Rate [ Anterior Bilateral Throughout] Pulse Rate [ From Monitor] Pulse Rate [ Left Dorsalis Pedis] Pulse Rate [ Right Dorsalis Pedis] Respiratory 18 14 18 Rate Respiratory Rate [Anterior Bilateral Throughout] Blood Pressure 109/62 106/61 94/56 O2 Sat by Pulse 99 99 Oximetry 07/09/18 07/09/18 07/09/18 06:00 06:15 07:41 Temperature Pulse Rate 92 H 90 101 H Pulse Rate [ 103 H Anterior Bilateral Throughout] Pulse Rate [ From Monitor] Pulse Rate [ Left Dorsalis Pedis] Pulse Rate [ Right Dorsalis Pedis] Respiratory 12 5 L Rate Respiratory 20 Rate [Anterior Bilateral Throughout] Blood Pressure 101/57 98/55 124/59 O2 Sat by Pulse 100 100 100 Oximetry 07/09/18 07/09/18 08:00 08:50 Temperature 97.6 F Pulse Rate 104 H Pulse Rate [ Anterior Bilateral Throughout] Pulse Rate [ From Monitor] Pulse Rate [ Left Dorsalis Pedis] Pulse Rate [ Right Dorsalis Pedis] Respiratory 14 Rate Respiratory Rate [Anterior Bilateral Throughout] Blood Pressure 142/75 O2 Sat by Pulse 100 Oximetry - General physical appearance no distress, no pain, other (awake on vent) - Eyes normal occular movement - Respiratory normal expansion, normal respiratory effort - Abdomen soft, not tender, not guarding, not rigid, other (wound vac in place - drainage is serous) - Integumentary no rash, no growths, no abnormal pigmentation - Labs 07/09/18 05:30 07/09/18 05:30 Diabetes panel 07/09/18 Range/Units 05:30 Sodium 141 (137-145) mmol/L Potassium 3.3 L D (3.6-5.0) mmol/L Chloride 103.2 (98-107) mmol/L Carbon Dioxide 33 H (22-30) mmol/L BUN 17 (7-17) mg/dL Creatinine < 0.2 L (0.7-1.2) mg/dL Glucose 145 H (65-100) mg/dL Calcium 7.8 L (8.4-10.2) mg/dL Calcium panel 07/09/18 Range/Units 05:30 Calcium 7.8 L (8.4-10.2) mg/dL Phosphorus 2.40 L (2.5-4.5) mg/dL Pituitary panel 07/09/18 Range/Units 05:30 Sodium 141 (137-145) mmol/L Potassium 3.3 L D (3.6-5.0) mmol/L Chloride 103.2 (98-107) mmol/L Carbon Dioxide 33 H (22-30) mmol/L BUN 17 (7-17) mg/dL Creatinine < 0.2 L (0.7-1.2) mg/dL Glucose 145 H (65-100) mg/dL Calcium 7.8 L (8.4-10.2) mg/dL Adrenal panel 07/09/18 Range/Units 05:30 Sodium 141 (137-145) mmol/L Potassium 3.3 L D (3.6-5.0) mmol/L Chloride 103.2 (98-107) mmol/L Carbon Dioxide 33 H (22-30) mmol/L BUN 17 (7-17) mg/dL Creatinine < 0.2 L (0.7-1.2) mg/dL Glucose 145 H (65-100) mg/dL Calcium 7.8 L (8.4-10.2) mg/dL
[2018-07-09] MEDS: KCL 10MEQ/100ML 10 MEQ/100 ML BAG IV SCH ×4 (13:15→18:11)
[2018-07-09] MEDS: HEPARIN/ 0.45% NACL-25,000 UNIT/500 ML 25,000 UNIT/500 ML BAG IV SCH (16:46)
--- NOTE | 2018-07-09 17:42 | Progress Note ---
Assessment and Plan Assessment and plan: Patient is 58 yo female with Nicotine Dependence, Severe Malnutrition present to ED for evaluation. Patient presented with abdominal pain for 1 week progressively worsening symptoms over the same time frame. Pt states that her abdominal pain is 10/10, generalized, nonradiating, constant, worsened with movement. Pt denies NVD, ingestion of food/water from new or different sources, BRBPR, skin rash, or recent ill contacts. She was seen and evaluated in ED and found to have PSBO complicated by Bowel Perforation, SIRS, and severe malnutrition. Pt admitted to surgical floor. Surgery consulted in ED. Patient was taken to OR urgently. She had exploratory lap. surgeon found Sigmoid diverticulitis with perforation of distal sigmoid colon, purulent peritonitis. Peritoneal lavage and Posey's procedure was done on 06/24. Post-op was doing well, but on 06/28 developed acute resp failure was put on PBIPAP, transferred to ICU. Pulmonology consulted. she was given lasix, she improved BIPAP, discontinue d, placed on HFNC Oxygen and now on oxygen by ME. today has worsening leukocytosis therefore CT Chest/Abd ordered. 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 Patient was also noted to have right lower quadrant not appear viable. And was taken back for exploratory laparotomy. * s/p Exploratory laparotomy, small bowel resection, partial colon resection, temporary abdominal closure with abthera vac 07/04/18, POD 1 and * Exploratory laparotomy, Ezequiel's procedure 06/24/18 * Continues on full ventilatory support * IV heparin infusion, * Plan is to repeat scan in am and possible return to OR for evaluation of remaining bowel * PICC line placed for TPN. * Discussed extensively with patients brother, Sisters and Significant other. 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 Continue TPN for now Case management for financail assistance in preparation for discharge although still a going to be determined next week Continue Heparin drip Abdomen left open WITH Temporal closure Status post ex lap, peritoneal lavage, Posey's procedure on 06/24 Electrolytes have been replaced abx per ID. On cefepime, fluconazole, flagyl- PROBABLY WILL NEED PROLONGED DURATION DUE TO SURGERY lasix, oxygen supplement, breathing rx as needed Hematology consulted SHAUNA prior to discharge DVT/GI proph No family at bedside dvt/gi PROPHY The high probability of a clinically significant, sudden or life threatening deterioration of the [GI] system(s) required my full and direct attention, intervention and personal management. The aggregate critical care time was [45] minutes. This time is in addition to time spent performing reported procedures but includes the following: [x] Data Review and interpretation [x] Patient assessment and monitoring of vital signs [x] Documentation [x] Medication orders and management History Interval history: Patient' seen and examined remains on full ventilatory support. Stable. No other adverse event reported to me. Hospitalist Physical - Physical exam Narrative exam: Gen: in mild distress on full mechnical ventilatory support HEENT: Normocephalic, atraumatic, oct in place, ett noted Neck: supple, no JVD Heart: S1 and S2 reg, no murmurs, rubs or gallop Lungs: Bilateral crackles less, no wheeze Abd: soft, NT, abthera vac in place, clear drainage noted, osteomy noted. Ext:No edema, no clubbing, no cyanosis Neuro: Awake,alert, oriented, awakens and comprehends discussion, follows command moves all ext, non focal Psych:anxious : Sharif - Constitutional Vitals: Temp Pulse Resp BP Pulse Ox 98.7 F 96 H 18 123/60 100 07/09/18 15:55 07/09/18 16:10 07/09/18 16:10 07/09/18 16:10 07/09/18 16:10 General appearance: Present: no acute distress, other (intubated) Results - Labs CBC & Chem 7: 07/09/18 05:30 07/09/18 05:30 Labs: Laboratory Last Values WBC 19.3 K/mm3 (4.5-11.0) H 07/07/18 07:08 RBC 2.49 M/mm3 (3.65-5.03) L 07/07/18 07:08 Hgb 8.6 gm/dl (10.1-14.3) L 07/09/18 05:30 Hct 25.6 % (30.3-42.9) L D 07/09/18 05:30 MCV 89 fl (79-97) 07/07/18 07:08 MCH 29 pg (28-32) 07/07/18 07:08 MCHC 33 % (30-34) 07/07/18 07:08 RDW 15.0 % (13.2-15.2) 07/07/18 07:08 Plt Count 445 K/mm3 (140-440) H 07/09/18 05:30 Add Manual Diff Complete 06/29/18 00:57 Total Counted 200 06/29/18 00:57 Seg Neutrophils % Sand Shoveler 06/29/18 00:57 Seg Neuts % (Manual) 93.0 % (40.0-70.0) H 06/29/18 00:57 3.5 % 06/29/18 00:57 1.5 % (13.4-35.0) L 06/29/18 00:57 Reactive Lymphs % (Man) 0.5 % 06/29/18 00:57 1.5 % (0.0-7.3) 06/29/18 00:57 0 % (0.0-4.3) 06/29/18 00:57 0 % (0.0-1.8) 06/29/18 00:57 0 % 06/29/18 00:57 0 % 06/29/18 00:57 0 % 06/29/18 00:57 0 % 06/29/18 00:57 Nucleated RBC % Not Reportable 06/29/18 00:57 Seg Neutrophils # Man 26.9 K/mm3 (1.8-7.7) H 06/29/18 00:57 Band Neutrophils # 1.0 K/mm3 06/29/18 00:57 0.4 K/mm3 (1.2-5.4) L 06/29/18 00:57 Abs React Lymphs (Man) 0.1 K/mm3 06/29/18 00:57 0.4 K/mm3 (0.0-0.8) 06/29/18 00:57 0.0 K/mm3 (0.0-0.4) 06/29/18 00:57 0.0 K/mm3 (0.0-0.1) 06/29/18 00:57 0.0 K/mm3 06/29/18 00:57 0.0 K/mm3 06/29/18 00:57 0.0 K/mm3 06/29/18 00:57 Blast Cells # 0.0 K/mm3 06/29/18 00:57 WBC Morphology Not Reportable 06/29/18 00:57 WBC Morphology TNR 06/29/18 00:57 Hypersegmented Neuts Few 06/29/18 00:57 Hyposegmented Neuts Not Reportable 06/29/18 00:57 Hypogranular Neuts Not Reportable 06/29/18 00:57 Not Reportable 06/29/18 00:57 Not Reportable 06/29/18 00:57 Not Reportable 06/29/18 00:57 Not Reportable 06/29/18 00:57 Not Reportable 06/29/18 00:57 Not Reportable 06/29/18 00:57 Appears increased 06/29/18 00:57 Not Reportable 06/29/18 00:57 Plt Clumps, EDTA Not Reportable 06/29/18 00:57 Not Reportable 06/29/18 00:57 Not Reportable 06/29/18 00:57 Not Reportable 06/29/18 00:57 Plt Morphology Comment Not Reportable 06/29/18 00:57 RBC Morphology Not Reportable 06/29/18 00:57 Dimorphic RBCs Not Reportable 06/29/18 00:57 Not Reportable 06/29/18 00:57 Not Reportable 06/29/18 00:57 Not Reportable 06/29/18 00:57 Not Reportable 06/29/18 00:57 Not Reportable 06/29/18 00:57 Not Reportable 06/29/18 00:57 Not Reportable 06/29/18 00:57 Not Reportable 06/29/18 00:57 Not Reportable 06/29/18 00:57 Not Reportable 06/29/18 00:57 Not Reportable 06/29/18 00:57 Not Reportable 06/29/18 00:57 Not Reportable 06/29/18 00:57 Not Reportable 06/29/18 00:57 Not Reportable 06/29/18 00:57 Not Reportable 06/29/18 00:57 Not Reportable 06/29/18 00:57 Not Reportable 06/29/18 00:57 Not Reportable 06/29/18 00:57 Acanthocytes (Spur) Not Reportable 06/29/18 00:57 Rouleaux Not Reportable 06/29/18 00:57 Not Reportable 06/29/18 00:57 Not Reportable 06/29/18 00:57 Not Reportable 06/29/18 00:57 Not Reportable 06/29/18 00:57 Hem Pathologist Commnt No 06/29/18 00:57 PT 15.2 Sec. (12.2-14.9) H 07/07/18 15:20 INR 1.13 (0.87-1.13) 07/07/18 15:20 APTT 42.2 Sec. (24.2-36.6) H 07/07/18 15:20 Heparin Anti-Xa Level 0.49 U.I./ml (0.3-0.7) 07/09/18 09:47 POC ABG pH 7.437 (7.35-7.45) 07/09/18 04:37 POC ABG pCO2 46.9 (35-45) H 07/09/18 04:37 POC ABG pO2 120 (80-105) H 07/09/18 04:37 POC ABG HCO3 31.6 (22-26 mml/L) 07/09/18 04:37 POC ABG Total CO2 33 (23-27mmol/L) 07/09/18 04:37 POC ABG O2 Sat 99 07/09/18 04:37 POC ABG Base Excess 7 ((-2) - (+3)mmol/L) 07/09/18 04:37 28 % 07/09/18 04:37 Sodium 141 mmol/L (137-145) 07/09/18 05:30 Potassium 3.3 mmol/L (3.6-5.0) L D 07/09/18 05:30 Chloride 103.2 mmol/L (98-107) 07/09/18 05:30 Carbon Dioxide 33 mmol/L (22-30) H 07/09/18 05:30 8 mmol/L 07/09/18 05:30 BUN 17 mg/dL (7-17) 07/09/18 05:30 < 0.2 mg/dL (0.7-1.2) L 07/09/18 05:30 Estimated GFR > 60 ml/min 07/09/18 05:30 85 % 07/09/18 05:30 Glucose 145 mg/dL (65-100) H 07/09/18 05:30 POC Glucose 149 (70-105) H 07/09/18 05:34 Lactic Acid 1.40 mmol/L (0.7-2.0) 07/04/18 21:11 Calcium 7.8 mg/dL (8.4-10.2) L 07/09/18 05:30 Phosphorus 2.40 mg/dL (2.5-4.5) L 07/09/18 05:30 Magnesium 1.90 mg/dL (1.7-2.3) 07/09/18 05:30 Iron 40 ug/dL (37-170) 07/07/18 11:50 TIBC 94 mcg/dL (250-450) L 07/07/18 11:50 377.8 ng/mL (13.0-400.0) 07/07/18 11:50 0.30 mg/dL (0.1-1.2) 07/06/18 05:00 1.5 mg/dL (0-0.2) H 06/24/18 11:19 0.4 mg/dL 06/24/18 11:19 AST 21 units/L (5-40) 07/06/18 05:00 ALT 16 units/L (7-56) 07/06/18 05:00 99 units/L (35-129) 07/06/18 05:00 13.20 mg/dL (0.00-1.30) H 07/03/18 11:07 NT-Pro-B Natriuret Pep 1572 pg/mL (0-900) H 06/28/18 09:56 4.5 g/dL (6.3-8.2) L 07/06/18 05:00 1.7 g/dL (3.9-5) L 07/06/18 05:00 0.6 % 07/06/18 05:00 Triglycerides 127 mg/dL (2-149) 07/07/18 02:14 8 units/L (13-60) L 06/24/18 11:19 Vitamin B12 924.8 pg/mL (211-911) H 07/07/18 11:50 4.92 ng/mL (7.3-26.0) L 07/07/18 11:50 Na (Yellow) 07/03/18 Unknown Hazy (Clear) 07/03/18 Unknown 6.0 (5.0-7.0) 07/03/18 Unknown Ur Specific [place] 1.023 (1.003-1.030) 07/03/18 Unknown <15 mg/dl mg/dL (Negative) 07/03/18 Unknown Neg mg/dL (Negative) 07/03/18 Unknown Neg mg/dL (Negative) 07/03/18 Unknown Sm (Negative) 07/03/18 Unknown Neg (Negative) 07/03/18 Unknown Neg (Negative) 07/03/18 Unknown < 2.0 mg/dL (<2.0) 07/03/18 Unknown Ur Leukocyte Esterase Neg (Negative) 07/03/18 Unknown 1.0 /HPF (0.0-6.0) 07/03/18 Unknown 3.0 /HPF (0.0-6.0) 07/03/18 Unknown U Epithel Cells (Auto) 7.0 /HPF (0-13.0) 07/03/18 Unknown 1+ /HPF (Negative) 06/24/18 13:00 Few /HPF 07/03/18 Unknown Vancomycin Trough 38.9 ug/mL (5.0-20.0) H 07/05/18 10:57 Blood Type O POSITIVE 07/04/18 17:54 Antibody Screen TNR 07/04/18 17:54 FADY Antibody Screen Negative 07/04/18 17:54 Crossmatch See Detail 07/04/18 17:54 Crossmatch See Detail 07/04/18 17:54 Active Medications - Current Medications Current Medications: Generic Name Dose Route Start Last Admin Trade Name Freq PRN Reason Stop Dose Admin Albumin Human 25 gm 07/09/18 22:00 Alburx 25% (Albumin) IV 07/11/18 10:01 Q12HR MAURICIO Albuterol 2.5 mg 07/02/18 07:44 Proventil IH Q4HRT PRN Shortness Of Breath Albuterol/Ipratropium 1 ampul 07/02/18 14:00 07/09/18 13:37 Duoneb *Not For Prn Use* IH 1 ampul TIDRT MAURICIO Administration Budesonide 0.5 mg 07/02/18 20:00 07/09/18 07:41 Pulmicort IH 0.5 mg Q12HRT MAURICIO Administration Fentanyl 25 mcg 06/30/18 14:19 Sublimaze IV Q2H PRN Pain, Moderate (4-6) Hydrophilic Ointment 1 applic 07/04/18 18:23 Vaseline Lip Therapy TP Q2HR PRN Dry Lips Metronidazole 500 mg in 100 mls @ 100 mls/hr 06/24/18 22:00 07/09/18 14:45 Flagyl 500 Mg/100 Ml IV 100 mls/hr Q8H MAURICIO Administration Protocol Fluconazole 200 mls @ 100 mls/hr 06/26/18 14:00 07/09/18 10:38 Diflucan IV 200 mls/hr Q24HR MAURICIO Administration Protocol Cefepime HCl 2 gm in 100 mls @ 200 mls/hr 06/27/18 14:00 07/09/18 10:38 Maxipime/Ns 2 Gm/100 Ml IV 200 mls/hr Q12HR MAURICIO Administration Protocol Fentanyl Citrate 2,000 mcg in 100 mls @ 2.605 mls/hr 07/04/18 19:00 07/09/18 16:37 Fentanyl Drip Premix IV 3 mcg/kg/hr TITR MAURICIO 7.815 mls/hr Administration Protocol 1 MCG/KG/HR Propofol 1,000 mg in 100 mls @ 1.563 mls/hr 07/04/18 19:00 07/08/18 19:33 Diprivan 10 Mg/Ml IV 0 mcg/kg/min TITR MAURICIO 0 mls/hr Titration Protocol 5 MCG/KG/MIN Heparin Sodium/Sodium Chloride 25,000 unit in 500 mls @ 15 mls/hr 07/07/18 14:00 07/09/18 16:46 Heparin/ 0.45% Nacl-25,000 Unit/500 Ml IV 1,450 units/hr TITR MAURICIO 29 mls/hr Administration Protocol 750 UNITS/HR Amino Acids/Electrolytes/Dextrose 1,800 mls @ 75 mls/hr 07/08/18 20:00 07/08/18 19:50 Tpn Adult IV 07/09/18 19:59 75 mls/hr DAILY@1999 MAURICIO Administration Protocol Amino Acids/Electrolytes/Dextrose 1,800 mls @ 75 mls/hr 07/09/18 20:00 Tpn Adult IV 07/10/18 19:59 DAILY@1999 [facility] Protocol Multi-Ingred Cream/Lotion/Oil/Oint 1 applic 07/04/18 18:23 Artificial Tears Ophth Oint OU Q4HR PRN Dry Eye(s) Naloxone HCl 0.1 mg 06/24/18 18:55 Narcan 0.4 Mg/1 Ml IV Q2MIN PRN Res Rate </= 8 or 02 SAT < 92% Nicotine 14 mg 06/25/18 10:00 07/09/18 10:37 Habitrol TD 14 mg QDAY MAURICIO Administration Ondansetron HCl 4 mg 06/24/18 14:00 06/29/18 04:00 Zofran IV 4 mg Q8H PRN Administration Nausea And Vomiting Pantoprazole Sodium 40 mg 07/04/18 22:00 07/09/18 10:38 Protonix IV 40 mg BID MAURICIO Administration Sodium Chloride 10 ml 06/24/18 22:00 07/08/18 22:00 Sodium Chloride Flush Syringe 10 Ml IV 10 ml BID MAURICIO Administration Sodium Chloride 10 ml 06/24/18 14:00 07/07/18 16:07 Sodium Chloride Flush Syringe 10 Ml IV 10 ml PRN PRN Administration LINE FLUSH Sodium Chloride 5 ml 07/04/18 18:23 Nacl 0.9% 500 Ml IV DIRECT PRN ARTERIAL CARDIAC TECHNICIAN Nutrition/Malnutrition Assess - Dietary Evaluation Nutrition/Malnutrition Findings: Nutrition Notes Start: 06/30/18 16:45 Freq: Status: Active Protocol: Document 07/09/18 12:05 RM (Rec: 07/09/18 12:12 RM [id number]) Nutrition Notes Initial or Follow up Reassessment Other Pertinent Diagnosis Severe enterocolitis, peritonitis, sigmoid diverticulitis s/p exp lap Current Diet PPN at 75ml/hr Labs/Tests Mg 1.9 K 3.3 P 2.4 Pertinent Medications Reviewed Height 5 ft 3 in Weight 52.1 kg [place] Body Weight (kg) 52.27 BMI 20.3 Subjective/Other Information Day 4 CPN. Recorded wt increased to 64.9 kg. Promotional Model had nurse attempt to weigh pt but bedscale was not working. Nurse stated he would asked for someone to check out bedscale. Promotional Model will continue to use previous wt for now. Percent of energy/protein needs met: 54%/100% Burn Absent Trauma Absent #2 Nutrition Diagnosis Inadequate oral intake Diagnosis Progress(for reassessment Continues documentation) #1 Nutrition Diagnosis Increased nutrient needs ( specify in comment below) Diagnosis Progress(for reassessment Continues documentation) Is patient on ventilator? Yes Is Patient Ambulatory and/or Out of Bed No REE-([place]-confined to bed) 1289.088 Kcal/Kg value to use for calculation 33 Approximate Energy Requirements Using 1719 kcal/Kg Calculation Used for Recommendations Kcal/kg Additional Notes Pro needs 1.2-2/k-104g/ day Fluid needs 1ml/kcal Nutrition Intervention Nutrition Support: CPN at 75 ml/hr: 120 mEq K, 40 mmol P Kcal 930 Protein (gm) 105 Carbohydrates (gm) 150 Fat (gm) 0 Fluid (mL) 1,800 Fiber (gm) 0 Goal #1 Meet at least 80% of kcal and protein needs as best as possible Anticipated Discharge Needs: home TPN Follow-Up By: 07/10/18 Additional Comments Follow for labs in AM: BMP, Mg , Phos
[2018-07-09] MEDS ORDERED: TPN ADULT 1,800 ML IV SCH (20:00)
[2018-07-09] MEDS: ALBURX 25% (ALBUMIN) IV SCH (21:51)
[2018-07-10] MEDS: SODIUM CHLORIDE FLUSH SYRINGE 10 ML IV SCH ×4 (01:22→21:41)
[2018-07-10] MEDS: SUBLIMAZE IV PRN ×3 (02:14→18:30)
--- NOTE | 2018-07-10 04:49 | XRay Report ---
PROCEDURE: XR CHEST 1V AP TECHNIQUE: Chest radiograph single view. HISTORY: follow up respiratory failure FINDINGS: Single frontal view of the chest was acquired and compared to the prior examination of July 09. The heart is normal in size. There is a nasogastric tube which terminates in the gastric fundus. The endotracheal tube lies in position. There is a right-sided central venous catheter with its tip in superior vena cava. There is no consol idative infiltrate. There is no evidence of congestive heart failure. IMPRESSION: No consolidative infiltrate This document is electronically signed by Mark Jj MD., July 10 2018 05:47:16 AM ET
[2018-07-10 06:11] LABS: Hematocrit 24.8 % (30.3-42.9); Hemoglobin 8.6 gm/dl (10.1-14.3); Mean Corpuscular HGB Conc 35 % (30-34); Mean Corpuscular Volume 88 fl (79-97); Platelet Count 477 K/mm3 (140-440); Red Blood Count 2.83 M/mm3 (3.65-5.03); Red Cell Distribution Width 15.3 % (13.2-15.2)
[2018-07-10] MEDS: fentaNYL DRIP Premix 2,000 MCG/100 ML BAG IV SCH (06:47)
[2018-07-10] MEDS: FLAGYL 500 MG/100 ML 500 MG/100 ML BAG IV SCH ×3 (06:47→22:44)
[2018-07-10] MEDS: DUONEB *Not for PRN Use IH SCH ×5 (06:54→19:33)
[2018-07-10] MEDS: PULMICORT IH SCH ×3 (06:54→19:33)
[2018-07-10 07:13] LABS: Alanine Aminotransferase 18 units/L (7-56); Albumin 1.9 g/dL (3.9-5); BUN/Creatinine Ratio 60; Blood Urea Nitrogen 12 mg/dL (7-17); Calcium 8.3 mg/dL (8.4-10.2); Hemolysis Index 5
[2018-07-10] MEDS: PROTONIX IV SCH ×2 (09:12→21:40)
[2018-07-10] MEDS: HABITROL TD SCH (09:13)
[2018-07-10] MEDS: ALBURX 25% (ALBUMIN) IV SCH (09:13)
[2018-07-10] MEDS: MAXIPIME/NS 2 GM/100 ML 2 GM/100 ML BAG IV SCH ×2 (09:15→21:41)
[2018-07-10] MEDS: DIFLUCAN 200 ML IV SCH (09:16)
--- NOTE | 2018-07-10 09:21 | Event Note ---
Date: 07/10/18 Preop note: Procedure: Exlap, possible bowel resection, possible wound vac, cholecystectomy, possible feeding tube 58 yo F with open abdomen s/p 1) exploratory laparotomy, small bowel resection with primary anastamosis, right hemicolectomy with ileocolonic anastamosis, temporary closure of abdomen with abthera vac 07/07/18 - POD#3; 2) Exploratory laparotomy, small bowel resection, partial colon resection, temporary abdominal closure with abthera vac 07/04/18, POD 6; and 3) Exploratory laparotomy, Ezequiel's procedure 06/24/18. Plan to take patient back to OR today for above procedure. I discussed procedure with patient's partner Yvonne with is authorized by patient to give consent. Consent obtained. Patient is NPO, on TPN, heparin gtt held at 7 am today. No overnight events. Patient is awake and understands plan.
--- NOTE | 2018-07-10 09:28 | Progress Note ---
Assessment and Plan Assessment and plan: Patient is 58 yo female with Nicotine Dependence, Severe Malnutrition present to ED for evaluation. Patient presented with abdominal pain for 1 week progressively worsening symptoms over the same time frame. Pt states that her abdominal pain is 10/10, generalized, nonradiating, constant, worsened with movement. Pt denies NVD, ingestion of food/water from new or different sources, BRBPR, skin rash, or recent ill contacts. She was seen and evaluated in ED and found to have PSBO complicated by Bowel Perforation, SIRS, and severe malnutrition. Pt admitted to surgical floor. Surgery consulted in ED. Patient was taken to OR urgently. She had exploratory lap. surgeon found Sigmoid diverticulitis with perforation of distal sigmoid colon, purulent peritonitis. Peritoneal lavage and Posey's procedure was done on 06/24. Post-op was doing well, but on 06/28 developed acute resp failure was put on PBIPAP, transferred to ICU. Pulmonology consulted. she was given lasix, she improved BIPAP, discontinue d, placed on HFNC Oxygen and now on oxygen by HI. today has worsening leukocytosis therefore CT Chest/Abd ordered. 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 Patient was also noted to have right lower quadrant not appear viable. And was taken back for exploratory laparotomy. * s/p Exploratory laparotomy, small bowel resection, partial colon resection, temporary abdominal closure with abthera vac 07/04/18, * Exploratory laparotomy, Ezequiel's procedure 06/24/18 * Continues on full ventilatory support * IV heparin infusion, * Plan is to repeat scan in am and possible return to OR for evaluation of remaining bowel * PICC line placed for TPN. * Discussed extensively with patients brother, Sisters and Significant other. 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 Continue TPN for now Case management for financail assistance in preparation for discharge although still a going to be determined next week Continue Heparin drip Abdomen left open WITH Temporal closure Status post ex lap, peritoneal lavage, Posey's procedure on 06/24 Electrolytes have been replaced abx per ID. On cefepime, fluconazole, flagyl- PROBABLY WILL NEED PROLONGED DURATION DUE TO SURGERY lasix, oxygen supplement, breathing rx as needed Hematology consulted SHAUNA prior to discharge DVT/GI proph No family at bedside dvt/gi PROPHY The high probability of a clinically significant, sudden or life threatening de terioration of the [GI] system(s) required my full and direct attention, intervention and personal management. The aggregate critical care time was [35] minutes. This time is in addition to time spent performing reported procedures but includes the following: [x] Data Review and interpretation [x] Patient assessment and monitoring of vital signs [x] Documentation [x] Medication orders and management History Interval history: Patient seen and examined medical records reviewed Intubated on ventilatory support No new events reported by the nursing Vital signs noted Hospitalist Physical - Constitutional Vitals: Temp Pulse Resp BP Pulse Ox 97.7 F 99 H 18 130/72 98 07/10/18 04:00 07/10/18 07:15 07/10/18 07:15 07/10/18 07:15 07/10/18 07:15 General appearance: Present: no acute distress, well-nourished, other (intubated and vent) - EENT Eyes: Present: PERRL, EOM intact - Neck Neck: Present: supple, normal ROM - Respiratory Respiratory effort: normal Respiratory: bilateral: diminished, rhonchi, negative: rales, wheezing - Cardiovascular Rhythm: regular Heart Sounds: Present: S1 & S2 - Extremities Extremities: no ischemia, No edema - Abdominal General gastrointestinal: soft Results - Labs CBC & Chem 7: 07/10/18 05:50 07/10/18 05:50 Labs: Laboratory Last Values WBC 12.4 K/mm3 (4.5-11.0) H 07/10/18 05:50 RBC 2.83 M/mm3 (3.65-5.03) L 07/10/18 05:50 Hgb 8.6 gm/dl (10.1-14.3) L 07/10/18 05:50 Hct 24.8 % (30.3-42.9) L 07/10/18 05:50 MCV 88 fl (79-97) 07/10/18 05:50 MCH 30 pg (28-32) 07/10/18 05:50 MCHC 35 % (30-34) H 07/10/18 05:50 RDW 15.3 % (13.2-15.2) H 07/10/18 05:50 Plt Count 477 K/mm3 (140-440) H 07/10/18 05:50 Add Manual Diff Complete 06/29/18 00:57 Total Counted 200 06/29/18 00:57 Seg Neutrophils % Family Life Counselor 06/29/18 00:57 Seg Neuts % (Manual) 93.0 % (40.0-70.0) H 06/29/18 00:57 3.5 % 06/29/18 00:57 1.5 % (13.4-35.0) L 06/29/18 00:57 Reactive Lymphs % (Man) 0.5 % 06/29/18 00:57 1.5 % (0.0-7.3) 06/29/18 00:57 0 % (0.0-4.3) 06/29/18 00:57 0 % (0.0-1.8) 06/29/18 00:57 0 % 06/29/18 00:57 0 % 06/29/18 00:57 0 % 06/29/18 00:57 0 % 06/29/18 00:57 Nucleated RBC % Not Reportable 06/29/18 00:57 Seg Neutrophils # Man 26.9 K/mm3 (1.8-7.7) H 06/29/18 00:57 Band Neutrophils # 1.0 K/mm3 06/29/18 00:57 0.4 K/mm3 (1.2-5.4) L 06/29/18 00:57 Abs React Lymphs (Man) 0.1 K/mm3 06/29/18 00:57 0.4 K/mm3 (0.0-0.8) 06/29/18 00:57 0.0 K/mm3 (0.0-0.4) 06/29/18 00:57 0.0 K/mm3 (0.0-0.1) 06/29/18 00:57 0.0 K/mm3 06/29/18 00:57 0.0 K/mm3 06/29/18 00:57 0.0 K/mm3 06/29/18 00:57 Blast Cells # 0.0 K/mm3 06/29/18 00:57 WBC Morphology Not Reportable 06/29/18 00:57 WBC Morphology TNR 06/29/18 00:57 Hypersegmented Neuts Few 06/29/18 00:57 Hyposegmented Neuts Not Reportable 06/29/18 00:57 Hypogranular Neuts Not Reportable 06/29/18 00:57 Not Reportable 06/29/18 00:57 Not Reportable 06/29/18 00:57 Not Reportable 06/29/18 00:57 Not Reportable 06/29/18 00:57 Not Reportable 06/29/18 00:57 Not Reportable 06/29/18 00:57 Appears increased 06/29/18 00:57 Not Reportable 06/29/18 00:57 Plt Clumps, EDTA Not Reportable 06/29/18 00:57 Not Reportable 06/29/18 00:57 Not Reportable 06/29/18 00:57 Not Reportable 06/29/18 00:57 Plt Morphology Comment Not Reportable 06/29/18 00:57 RBC Morphology Not Reportable 06/29/18 00:57 Dimorphic RBCs Not Reportable 06/29/18 00:57 Not Reportable 06/29/18 00:57 Not Reportable 06/29/18 00:57 Not Reportable 06/29/18 00:57 Not Reportable 06/29/18 00:57 Not Reportable 06/29/18 00:57 Not Reportable 06/29/18 00:57 Not Reportable 06/29/18 00:57 Not Reportable 06/29/18 00:57 Not Reportable 06/29/18 00:57 Not Reportable 06/29/18 00:57 Not Reportable 06/29/18 00:57 Not Reportable 06/29/18 00:57 Not Reportable 06/29/18 00:57 Not Reportable 06/29/18 00:57 Not Reportable 06/29/18 00:57 Not Reportable 06/29/18 00:57 Not Reportable 06/29/18 00:57 Not Reportable 06/29/18 00:57 Not Reportable 06/29/18 00:57 Acanthocytes (Spur) Not Reportable 06/29/18 00:57 Rouleaux Not Reportable 06/29/18 00:57 Not Reportable 06/29/18 00:57 Not Reportable 06/29/18 00:57 Not Reportable 06/29/18 00:57 Not Reportable 06/29/18 00:57 Hem Pathologist Commnt No 06/29/18 00:57 PT 15.2 Sec. (12.2-14.9) H 07/07/18 15:20 INR 1.13 (0.87-1.13) 07/07/18 15:20 APTT 42.2 Sec. (24.2-36.6) H 07/07/18 15:20 Heparin Anti-Xa Level 0.49 U.I./ml (0.3-0.7) 07/09/18 09:47 POC ABG pH 7.431 (7.35-7.45) 07/10/18 04:32 POC ABG pCO2 48.5 (35-45) H 07/10/18 04:32 POC ABG pO2 104 (80-105) 07/10/18 04:32 POC ABG HCO3 32.2 (22-26 mml/L) 07/10/18 04:32 POC ABG Total CO2 34 (23-27mmol/L) 07/10/18 04:32 POC ABG O2 Sat 98 07/10/18 04:32 POC ABG Base Excess 8 ((-2) - (+3)mmol/L) 07/10/18 04:32 28 % 07/10/18 04:32 Sodium 144 mmol/L (137-145) 07/10/18 05:50 Potassium 3.8 mmol/L (3.6-5.0) 07/10/18 05:50 Chloride 104.5 mmol/L (98-107) 07/10/18 05:50 Carbon Dioxide 30 mmol/L (22-30) 07/10/18 05:50 13 mmol/L 07/10/18 05:50 BUN 12 mg/dL (7-17) 07/10/18 05:50 < 0.2 mg/dL (0.7-1.2) L 07/10/18 05:50 Estimated GFR > 60 ml/min 07/10/18 05:50 60 % 07/10/18 05:50 Glucose 131 mg/dL (65-100) H 07/10/18 05:50 POC Glucose 124 (70-105) H 07/10/18 05:45 Lactic Acid 1.40 mmol/L (0.7-2.0) 07/04/18 21:11 Calcium 8.3 mg/dL (8.4-10.2) L 07/10/18 05:50 Phosphorus 2.80 mg/dL (2.5-4.5) 07/10/18 05:50 Magnesium 2.00 mg/dL (1.7-2.3) 07/10/18 05:50 Iron 40 ug/dL (37-170) 07/07/18 11:50 TIBC 94 mcg/dL (250-450) L 07/07/18 11:50 377.8 ng/mL (13.0-400.0) 07/07/18 11:50 0.30 mg/dL (0.1-1.2) 07/10/18 05:50 1.5 mg/dL (0-0.2) H 06/24/18 11:19 0.4 mg/dL 06/24/18 11:19 AST 16 units/L (5-40) 07/10/18 05:50 ALT 18 units/L (7-56) 07/10/18 05:50 89 units/L (35-129) 07/10/18 05:50 13.20 mg/dL (0.00-1.30) H 07/03/18 11:07 NT-Pro-B Natriuret Pep 1572 pg/mL (0-900) H 06/28/18 09:56 4.8 g/dL (6.3-8.2) L 07/10/18 05:50 1.9 g/dL (3.9-5) L 07/10/18 05:50 0.7 % 07/10/18 05:50 Triglycerides 127 mg/dL (2-149) 07/07/18 02:14 8 units/L (13-60) L 06/24/18 11:19 Vitamin B12 924.8 pg/mL (211-911) H 07/07/18 11:50 4.92 ng/mL (7.3-26.0) L 07/07/18 11:50 Na (Yellow) 07/03/18 Unknown Hazy (Clear) 07/03/18 Unknown 6.0 (5.0-7.0) 07/03/18 Unknown Ur Specific [place] 1.023 (1.003-1.030) 07/03/18 Unknown <15 mg/dl mg/dL (Negative) 07/03/18 Unknown Neg mg/dL (Negative) 07/03/18 Unknown Neg mg/dL (Negative) 07/03/18 Unknown Sm (Negative) 07/03/18 Unknown Neg (Negative) 07/03/18 Unknown Neg (Negative) 07/03/18 Unknown < 2.0 mg/dL (<2.0) 07/03/18 Unknown Ur Leukocyte Esterase Neg (Negative) 07/03/18 Unknown 1.0 /HPF (0.0-6.0) 07/03/18 Unknown 3.0 /HPF (0.0-6.0) 07/03/18 Unknown U Epithel Cells (Auto) 7.0 /HPF (0-13.0) 07/03/18 Unknown 1+ /HPF (Negative) 06/24/18 13:00 Few /HPF 07/03/18 Unknown Vancomycin Trough 38.9 ug/mL (5.0-20.0) H 07/05/18 10:57 Blood Type O POSITIVE 07/04/18 17:54 Antibody Screen TNR 07/04/18 17:54 FADY Antibody Screen Negative 07/04/18 17:54 Crossmatch See Detail 07/04/18 17:54 Crossmatch See Detail 07/04/18 17:54 Active Medications - Current Medications Current Medications: Generic Name Dose Route Start Last Admin Trade Name Freq PRN Reason Stop Dose Admin Albumin Human 25 gm 07/09/18 22:00 07/10/18 09:13 Alburx 25% (Albumin) IV 07/11/18 10:01 25 gm Q12HR MAURICIO Administration Albuterol 2.5 mg 07/02/18 07:44 Proventil IH Q4HRT PRN Shortness Of Breath Albuterol/Ipratropium 1 ampul 07/02/18 14:00 07/10/18 07:13 Duoneb *Not For Prn Use* IH Not Given TIDRT MAURICIO Budesonide 0.5 mg 07/02/18 20:00 07/10/18 07:14 Pulmicort IH Not Given Q12HRT MAURICIO Fentanyl 25 mcg 06/30/18 14:19 07/10/18 09:08 Sublimaze IV 25 mcg Q2H PRN Administration Pain, Moderate (4-6) Hydrophilic Ointment 1 applic 07/04/18 18:23 Vaseline Lip Therapy TP Q2HR PRN Dry Lips Metronidazole 500 mg in 100 mls @ 100 mls/hr 06/24/18 22:00 07/10/18 07:47 Flagyl 500 Mg/100 Ml IV Infused Q8H MAURICIO Infusion Protocol Fluconazole 200 mls @ 100 mls/hr 06/26/18 14:00 07/10/18 09:16 Diflucan IV 100 mls/hr Q24HR MAURICIO Administration Protocol Cefepime HCl 2 gm in 100 mls @ 200 mls/hr 06/27/18 14:00 07/10/18 09:15 Maxipime/Ns 2 Gm/100 Ml IV 200 mls/hr Q12HR MAURICIO Administration Protocol Fentanyl Citrate 2,000 mcg in 100 mls @ 2.605 mls/hr 07/04/18 19:00 07/10/18 06:47 Fentanyl Drip Premix IV 3 mcg/kg/hr TITR MAURICIO 7.815 mls/hr Administration Protocol 1 MCG/KG/HR Propofol 1,000 mg in 100 mls @ 1.563 mls/hr 07/04/18 19:00 07/08/18 19:33 Diprivan 10 Mg/Ml IV 0 mcg/kg/min TITR MAURICIO 0 mls/hr Titration Protocol 5 MCG/KG/MIN Heparin Sodium/Sodium Chloride 25,000 unit in 500 mls @ 15 mls/hr 07/07/18 14: 00 07/10/18 07:00 Heparin/ 0.45% Nacl-25,000 Unit/500 Ml IV 0 units/hr TITR MAURICIO 0 mls/hr Titration Protocol 750 UNITS/HR Amino Acids/Electrolytes/Dextrose 1,800 mls @ 75 mls/hr 07/09/18 20:00 07/09/18 19:59 Tpn Adult IV 07/10/18 19:59 75 mls/hr DAILY@2000 MAURICIO Administration Protocol Multi-Ingred Cream/Lotion/Oil/Oint 1 applic 07/04/18 18:23 Artificial Tears Ophth Oint OU Q4HR PRN Dry Eye(s) Naloxone HCl 0.1 mg 06/24/18 18:55 Narcan 0.4 Mg/1 Ml IV Q2MIN PRN Res Rate </= 8 or 02 SAT < 92% Nicotine 14 mg 06/25/18 10:00 07/10/18 09:13 Habitrol TD 14 mg QDAY MAURICIO Administration Ondansetron HCl 4 mg 06/24/18 14:00 06/29/18 04:00 Zofran IV 4 mg Q8H PRN Administration Nausea And Vomiting Pantoprazole Sodium 40 mg 07/04/18 22:00 07/10/18 09:12 Protonix IV 40 mg BID MAURICIO Administration Sodium Chloride 10 ml 06/24/18 22:00 07/10/18 09:17 Sodium Chloride Flush Syringe 10 Ml IV 10 ml BID MAURICIO Administration Sodium Chloride 10 ml 06/24/18 14:00 07/07/18 16:07 Sodium Chloride Flush Syringe 10 Ml IV 10 ml PRN PRN Administration LINE FLUSH Sodium Chloride 5 ml 07/04/18 18:23 07/10/18 08:09 Nacl 0.9% 500 Ml IV 5 ml DIRECT PRN Administration [employer] Nutrition/Malnutrition Assess - Dietary Evaluation Nutrition/Malnutrition Findings: Nutrition Notes Start: 06/30/18 16:45 Freq: Status: Active Protocol: Document 07/09/18 12:05 RM (Rec: 07/09/18 12:12 [email or web address]) Nutrition Notes Initial or Follow up Reassessment Other Pertinent Diagnosis Severe enterocolitis, peritonitis, sigmoid diverticulitis s/p exp lap Current Diet PPN at 75ml/hr Labs/Tests Mg 1.9 K 3.3 P 2.4 Pertinent Medications Reviewed Height 5 ft 3 in Weight 52.1 kg [place] Body Weight (kg) 52.27 BMI 20.3 Subjective/Other Information Day 4 CPN. Recorded wt increased to 64.9 kg. Golf Cart Maker had nurse attempt to weigh pt but bedscale was not working. Nurse stated he would asked for someone to check out bedscale. Golf Cart Maker will continue to use previous wt for now. Percent of energy/protein needs met: 54%/100% Burn Absent Trauma Absent #2 Nutrition Diagnosis Inadequate oral intake Diagnosis Progress(for reassessment Continues documentation) #1 Nutrition Diagnosis Increased nutrient needs ( specify in comment below) Diagnosis Progress(for reassessment Continues documentation) Is patient on ventilator? Yes Is Patient Ambulatory and/or Out of Bed No REE-([place]-confined to bed) 1289.088 Kcal/Kg value to use for calculation 33 Approximate Energy Requirements Using 1719 kcal/Kg Calculation Used for Recommendations Kcal/kg Additional Notes Pro needs 1.2-2/k-104g/ day Fluid needs 1ml/kcal Nutrition Intervention Nutrition Support: CPN at 75 ml/hr: 120 mEq K, 40 mmol P Kcal 930 Protein (gm) 105 Carbohydrates (gm) 150 Fat (gm) 0 Fluid (mL) 1,800 Fiber (gm) 0 Goal #1 Meet at least 80% of kcal and protein needs as best as possible Anticipated Discharge Needs: home TPN Follow-Up By: 07/10/18 Additional Comments Follow for labs in AM: BMP, Mg , Phos
--- NOTE | 2018-07-10 10:38 | Progress Note ---
Assessment and Plan Cultures: 06/26/2018 Blood culture no growth 07/03/2018 Blood culture no growth so far 07/04/2018 Sputum usual respiratory kait Assessment: 58 y/o female with history of HTN, tobacco dependence admitted on 06/24/2018 due to a week history of severe abdominal pain, constipation and nausea. 1) Severe sepsis: Etiology most likely peritonitis from diverticular perforation and leukemoid reaction likely due to bowel ischemia. 2) Acute fecal peritonitis from diverticular perforation/abscess: went to OR on 06/24/2018 for Exploratory laparotomy, Ezequiel's for perforated sigmoid diver ticulitis with purulent peritonitis. 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 No pulsation in SMA, small bowel resection, partial colon resection, temporary abdominal closure with abthera vac on 07/04. Now again to OR on 07/07/2018, was found to have an 8 cm area of necrotic small bowel. Plans for re-trip to OR today. On empiric abx to cover GNR, anaerobes, Davina. 3) Bilateral pneumonia: ?aspiration v/s HAP on cefepime and vancomycin. CTA showed scattered infiltrates identified in both lungs, this is most prominent in the right lower lung, slight bilateral effusions, no evidence of pulmonary arterial emboli. 4) Acute hypoxemic resp failure: currently on vent following OR trip. 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 s/p surgery as above. Recommendations: - continue Cefepime, fluconazole and Flagyl D17 today, tentative plan to stop abx 48 hours post closure following re-trip to OR today - monitor CBC Kylie Evans MD [facility] C: [phone] O: [phone] F: [phone] Subjective Date of service: 07/10/18 Principal diagnosis: small bowel ischemiaperitonitis/penumonia Interval history: Afebrile. Doing well. Remains intubated, awake, awaiting surgery. No rash. Tolerating current antimicrobials. Objective - Exam Narrative Exam: Physical Exam: Constitutional: awake, no distress, intubated Head, Ears, Nose: Normocephalic, atraumatic. External ears, nose normal Eyes: Conjunctivae/corneas clear. No icterus. No ptosis. Neck: intubated Oral: intubated Cardiovascular: S1, S2 normal. Respiratory: Good air entry, clear to auscultation bilaterally GI: soft, colostomy +, midline woundVAC, bowel sounds hypoactive Musculoskeletal: No pedal edema, no cyanosis. Skin: No rash or abscess Hem/Lymphatic: No palpable cervical or supraclavicular nodes. No lymphangitis Psych: no agitation Neurological: awake, nods to commands, on vent. - Constitutional Vitals: Vital Signs Temp Pulse Resp BP Pulse Ox 97.7 F 99 H 18 130/72 98 07/10/18 04:00 07/10/18 07:15 07/10/18 07:15 07/10/18 07:15 07/10/18 07:15 Temperature -Last 24 Hours Temperature 97.7 F Temperature 97.9 F Temperature 97.6 F Temperature 98.7 F Temperature 98.7 F Temperature 97.6 F - Labs CBC & Chem 7: 07/10/18 05:50 07/10/18 05:50 Labs: Abnormal lab results 07/09/18 07/10/18 07/10/18 Range/Units 23:41 04:32 05:45 WBC (4.5-11.0) K/mm3 RBC (3.65-5.03) M/mm3 Hgb (10.1-14.3) gm/dl Hct (30.3-42.9) % MCHC (30-34) % RDW (13.2-15.2) % Plt Count (140-440) K/mm3 POC ABG pCO2 48.5 H (35-45) Creatinine (0.7-1.2) mg/dL Glucose (65-100) mg/dL POC Glucose 123 H 124 H (70-105) Calcium (8.4-10.2) mg/dL Total Protein (6.3-8.2) g/dL Albumin (3.9-5) g/dL 07/10/18 07/10/18 Range/Units 05:50 05:50 WBC 12.4 H (4.5-11.0) K/mm3 RBC 2.83 L (3.65-5.03) M/mm3 Hgb 8.6 L (10.1-14.3) gm/dl Hct 24.8 L (30.3-42.9) % MCHC 35 H (30-34) % RDW 15.3 H (13.2-15.2) % Plt Count 477 H (140-440) K/mm3 POC ABG pCO2 (35-45) Creatinine < 0.2 L (0.7-1.2) mg/dL Glucose 131 H (65-100) mg/dL POC Glucose (70-105) Calcium 8.3 L (8.4-10.2) mg/dL Total Protein 4.8 L (6.3-8.2) g/dL Albumin 1.9 L (3.9-5) g/dL
--- NOTE | 2018-07-10 11:15 | Progress Note ---
Assessment and Plan 58 y/o female with acute respiratory failure secondary to volume overload and possible COPD exacerbation Post op from [facility] for perforated viscous, now with recurrent surgical issues and intubation, going back to OR today. 1. Pending the time she returns from OR, could possibly consider extubation today 2. If late, will extubate tomorrow 3. TPN 4. ABx per ID 5. Prognosis is guarded. CCt 31 minutes. Subjective Date of service: 07/10/18 Principal diagnosis: small bowel ischemiaperitonitis/penumonia Interval history: No acute events. Awake and alert. Patient going back to OR this afternoon around 1300. Sister at bedside. Objective Vital Signs - 12hr 07/09/18 07/09/18 07/09/18 23:15 23:27 23:31 Temperature Pulse Rate 108 H 98 H 97 H Pulse Rate [ Anterior Bilateral Throughout] Respiratory 17 24 Rate Respiratory Rate [Anterior Bilateral Throughout] Blood Pressure 110/64 132/63 110/64 O2 Sat by Pulse 100 99 100 Oximetry 07/09/18 07/09/18 07/10/18 23:45 23:53 00:00 Temperature 97.9 F Pulse Rate 93 H 91 H Pulse Rate [ Anterior Bilateral Throughout] Respiratory 20 18 Rate Respiratory Rate [Anterior Bilateral Throughout] Blood Pressure 110/64 111/66 O2 Sat by Pulse 100 99 Oximetry 07/10/18 07/10/18 07/10/18 00:15 00:31 00:45 Temperature Pulse Rate 94 H 96 H 89 Pulse Rate [ Anterior Bilateral Throughout] Respiratory 19 19 18 Rate Respiratory Rate [Anterior Bilateral Throughout] Blood Pressure 111/66 111/66 111/66 O2 Sat by Pulse 99 100 100 Oximetry 07/10/18 07/10/18 07/10/18 01:00 01:15 01:31 Temperature Pulse Rate 86 90 88 Pulse Rate [ Anterior Bilateral Throughout] Respiratory 18 18 19 Rate Respiratory Rate [Anterior Bilateral Throughout] Blood Pressure 104/63 104/63 104/63 O2 Sat by Pulse 99 100 100 Oximetry 07/10/18 07/10/18 07/10/18 01:45 02:01 02:15 Temperature Pulse Rate 88 106 H 101 H Pulse Rate [ Anterior Bilateral Throughout] Respiratory 18 20 19 Rate Respiratory Rate [Anterior Bilateral Throughout] Blood Pressure 104/63 138/72 138/72 O2 Sat by Pulse 100 98 100 Oximetry 07/10/18 07/10/18 07/10/18 02:31 02:45 03:00 Temperature Pulse Rate 100 H 111 H 100 H Pulse Rate [ Anterior Bilateral Throughout] Respiratory 19 20 17 Rate Respiratory Rate [Anterior Bilateral Throughout] Blood Pressure 138/72 138/72 120/71 O2 Sat by Pulse 100 99 99 Oximetry 07/10/18 07/10/18 07/10/18 03:15 03:30 03:46 Temperature Pulse Rate 97 H 91 H 92 H Pulse Rate [ Anterior Bilateral Throughout] Respiratory 18 18 12 Rate Respiratory Rate [Anterior Bilateral Throughout] Blood Pressure 120/71 120/71 120/71 O2 Sat by Pulse 99 100 100 Oximetry 07/10/18 07/10/18 07/10/18 04:00 04:15 04:31 Temperature 97.7 F Pulse Rate 94 H 93 H 103 H Pulse Rate [ Anterior Bilateral Throughout] Respiratory 18 18 17 Rate Respiratory Rate [Anterior Bilateral Throughout] Blood Pressure 121/73 121/73 121/73 O2 Sat by Pulse 100 100 99 Oximetry 07/10/18 07/10/18 07/10/18 04:32 04:45 05:00 Temperature Pulse Rate 102 H 94 H 92 H Pulse Rate [ Anterior Bilateral Throughout] Respiratory 18 18 Rate Respiratory Rate [Anterior Bilateral Throughout] Blood Pressure 149/75 121/73 128/68 O2 Sat by Pulse 100 100 100 Oximetry 07/10/18 07/10/18 07/10/18 05:15 05:31 05:45 Temperature Pulse Rate 87 102 H 104 H Pulse Rate [ Anterior Bilateral Throughout] Respiratory 19 19 18 Rate Respiratory Rate [Anterior Bilateral Throughout] Blood Pressure 128/68 128/68 128/68 O2 Sat by Pulse 100 100 100 Oximetry 07/10/18 07/10/18 07/10/18 06:00 06:15 06:31 Temperature Pulse Rate 97 H 89 91 H Pulse Rate [ Anterior Bilateral Throughout] Respiratory 18 18 22 Rate Respiratory Rate [Anterior Bilateral Throughout] Blood Pressure 124/71 124/71 124/71 O2 Sat by Pulse 98 100 100 Oximetry 07/10/18 07/10/18 07/10/18 06:45 06:54 06:56 Temperature Pulse Rate 90 98 H Pulse Rate [ 101 H Anterior Bilateral Throughout] Respiratory 18 Rate Respiratory 20 Rate [Anterior Bilateral Throughout] Blood Pressure 124/71 138/67 O2 Sat by Pulse 100 100 Oximetry 0607/10/18 07/10/18 07:00 07:08 07:15 Temperature Pulse Rate 100 H 99 H Pulse Rate [ 103 H Anterior Bilateral Throughout] Respiratory 19 18 Rate Respiratory 18 Rate [Anterior Bilateral Throughout] Blood Pressure 130/72 130/72 O2 Sat by Pulse 98 98 Oximetry 07/10/18 07/10/18 07/10/18 07:31 07:45 08:00 Temperature Pulse Rate 96 H 108 H 105 H Pulse Rate [ Anterior Bilateral Throughout] Respiratory 22 21 24 Rate Respiratory Rate [Anterior Bilateral Throughout] Blood Pressure 130/72 130/72 125/71 O2 Sat by Pulse 98 99 99 Oximetry 07/10/18 07/10/18 07/10/18 08:15 08:31 08:45 Temperature Pulse Rate 100 H 96 H 107 H Pulse Rate [ Anterior Bilateral Throughout] Respiratory 18 18 21 Rate Respiratory Rate [Anterior Bilateral Throughout] Blood Pressure 130/72 130/72 125/71 O2 Sat by Pulse 100 100 100 Oximetry 07/10/18 07/10/18 07/10/18 09:00 09:15 09:31 Temperature Pulse Rate 103 H 99 H 96 H Pulse Rate [ Anterior Bilateral Throughout] Respiratory 19 18 18 Rate Respiratory Rate [Anterior Bilateral Throughout] Blood Pressure 130/79 130/79 130/79 O2 Sat by Pulse 99 100 Oximetry 07/10/18 07/10/18 07/10/18 09:45 10:00 10:15 Temperature Pulse Rate 89 98 H 95 H Pulse Rate [ Anterior Bilateral Throughout] Respiratory 19 16 18 Rate Respiratory Rate [Anterior Bilateral Throughout] Blood Pressure 130/79 133/76 133/76 O2 Sat by Pulse 100 100 100 Oximetry 07/10/18 07/10/18 10:20 10:31 Temperature Pulse Rate 96 H 98 H Pulse Rate [ Anterior Bilateral Throughout] Respiratory 16 16 Rate Respiratory Rate [Anterior Bilateral Throughout] Blood Pressure 160/88 133/76 O2 Sat by Pulse 100 100 Oximetry Constitutional: no acute distress, alert Eyes: non-icteric ENT: oropharynx moist, other (ETT in position) Neck: supple, no JVD Effort: normal Ascultation: Bilateral: clear, diminished breath sounds, wheezes, rales Percussion: Bilateral: not dull Tactile fremitus: Bilateral: normal Cardiovascular: regular rate and rhythm Gastrointestinal: hypoactive bowel sounds, tender, other (mildly distended,open wound covered exploratory lab,colostomy) Integumentary: normal Extremities: no cyanosis, no edema Neurologic: normal mental status, non-focal exam Psychiatric: mood appropriate CBC and BMP: 07/10/18 05:50 07/10/18 05:50 ABG, PT/INR, D-dimer: ABG POC ABG pH 7.431 (7.35-7.45) 07/10/18 04:32 POC ABG pCO2 48.5 (35-45) H 07/10/18 04:32 POC ABG pO2 104 (80-105) 07/10/18 04:32 POC ABG HCO3 32.2 (22-26 mml/L) 07/10/18 04:32 POC ABG Total CO2 34 (23-27mmol/L) 07/10/18 04:32 POC ABG O2 Sat 98 07/10/18 04:32 PT/INR, D-dimer PT 15.2 Sec. (12.2-14.9) H 07/07/18 15:20 INR 1.13 (0.87-1.13) 07/07/18 15:20 Abnormal lab findings: Abnormal Labs 06/24/18 06/24/18 06/24/18 11:18 11:19 11:19 WBC 19.0 H RBC Hgb Hct MCHC 35 H RDW Plt Count 457 H Seg Neuts % (Manual) 88.0 H Lymphocytes % (Manual) 2.0 L Seg Neutrophils # Man 16.7 H Lymphocytes # (Manual) 0.4 L Monocytes # (Manual) PT 15.9 H INR 1.19 H APTT Heparin Anti-Xa Level POC ABG pH POC ABG pCO2 POC ABG pO2 Sodium 136 L Potassium 2.8 L* Chloride 96.7 L Carbon Dioxide BUN Creatinine 0.4 L Glucose 146 H POC Glucose Calcium Phosphorus TIBC Total Bilirubin 1.90 H Direct Bilirubin 1.5 H Alkaline Phosphatase 264 H C-Reactive Protein NT-Pro-B Natriuret Pep Total Protein Albumin 3.0 L Lipase 8 L Vitamin B12 Folate Ur Specific [place] Vancomycin Trough Crossmatch 06/24/18 06/24/18 06/25/18 13:00 19:47 06:55 WBC 18.3 H RBC Hgb Hct MCHC 35 H RDW Plt Count 481 H Seg Neuts % (Manual) 88.0 H Lymphocytes % (Manual) 4.0 L Seg Neutrophils # Man 16.1 H Lymphocytes # (Manual) 0.7 L Monocytes # (Manual) PT INR APTT Heparin Anti-Xa Level POC ABG pH POC ABG pCO2 POC ABG pO2 Sodium Potassium 3.5 L D Chloride Carbon Dioxide 21 L BUN Creatinine 0.3 L Glucose 166 H POC Glucose Calcium 7.4 L D Phosphorus TIBC Total Bilirubin Direct Bilirubin Alkaline Phosphatase C-Reactive Protein NT-Pro-B Natriuret Pep Total Protein Albumin Lipase Vitamin B12 Folate Ur Specific [place] > 1.059 H Vancomycin Trough Crossmatch 06/25/18 06/26/18 06/26/18 06:55 11:54 11:54 WBC 19.9 H RBC 3.48 L Hgb Hct MCHC RDW Plt Count 583 H Seg Neuts % (Manual) Lymphocytes % (Manual) Seg Neutrophils # Man Lymphocytes # (Manual) Monocytes # (Manual) PT INR APTT Heparin Anti-Xa Level POC ABG pH POC ABG pCO2 POC ABG pO2 Sodium 146 H Potassium 3.5 L Chloride 108.3 H 109.9 H Carbon Dioxide BUN Creatinine 0.4 L 0.3 L Glucose 159 H 153 H POC Glucose Calcium 7.7 L 8.2 L Phosphorus TIBC Total Bilirubin Direct Bilirubin Alkaline Phosphatase 152 H C-Reactive Protein NT-Pro-B Natriuret Pep Total Protein 5.3 L Albumin 2.1 L Lipase Vitamin B12 Folate Ur Specific [place] Vancomycin Trough Crossmatch 06/26/18 06/26/18 06/27/18 14:12 20:37 02:04 WBC RBC Hgb Hct MCHC RDW Plt Count Seg Neuts % (Manual) Lymphocytes % (Manual) Seg Neutrophils # Man Lymphocytes # (Manual) Monocytes # (Manual) PT INR APTT Heparin Anti-Xa Level POC ABG pH 7.471 H 7.458 H POC ABG pCO2 POC ABG pO2 74 L 70 L Sodium Potassium Chloride Carbon Dioxide BUN Creatinine Glucose POC Glucose Calcium Phosphorus TIBC Total Bilirubin Direct Bilirubin Alkaline Phosphatase C-Reactive Protein 25.70 H NT-Pro-B Natriuret Pep Total Protein Albumin Lipase Vitamin B12 Folate Ur Specific [place] Vancomycin Trough Crossmatch 06/27/18 06/27/18 06/28/18 09:19 11:50 00:17 WBC 24.5 H 37.2 H RBC Hgb Hct MCHC RDW 15.4 H Plt Count 583 H 657 H Seg Neuts % (Manual) 98.0 H 88.5 H Lymphocytes % (Manual) 1.0 L 4.0 L Seg Neutrophils # Man 24.0 H 32.9 H Lymphocytes # (Manual) 0.2 L Monocytes # (Manual) 1.1 H PT INR APTT Heparin Anti-Xa Level POC ABG pH POC ABG pCO2 POC ABG pO2 Sodium 146 H Potassium 3.5 L Chloride Carbon Dioxide BUN Creatinine 0.3 L Glucose 176 H POC Glucose Calcium 8.2 L Phosphorus TIBC Total Bilirubin Direct Bilirubin Alkaline Phosphatase C-Reactive Protein NT-Pro-B Natriuret Pep Total Protein Albumin Lipase Vitamin B12 Folate Ur Specific [place] Vancomycin Trough Crossmatch 06/28/18 06/28/18 06/28/18 09:56 09:56 09:56 WBC 37.8 H RBC Hgb Hct MCHC RDW 15.3 H Plt Count 634 H Seg Neuts % (Manual) Lymphocytes % (Manual) Seg Neutrophils # Man Lymphocytes # (Manual) Monocytes # (Manual) PT INR APTT Heparin Anti-Xa Level POC ABG pH POC ABG pCO2 POC ABG pO2 Sodium 146 H Potassium 2.8 L* Chloride Carbon Dioxide 31 H BUN Creatinine 0.3 L Glucose 142 H POC Glucose Calcium 8.2 L Phosphorus TIBC Total Bilirubin Direct Bilirubin Alkaline Phosphatase C-Reactive Protein NT-Pro-B Natriuret Pep 1572 H Total Protein Albumin Lipase Vitamin B12 Folate Ur Specific [place] Vancomycin Trough Crossmatch 06/28/18 06/28/18 06/29/18 13:19 21:24 00:57 WBC 28.9 H RBC Hgb Hct MCHC RDW Plt Count 681 H Seg Neuts % (Manual) 93.0 H Lymphocytes % (Manual) 1.5 L Seg Neutrophils # Man 26.9 H Lymphocytes # (Manual) 0.4 L Monocytes # (Manual) PT INR APTT Heparin Anti-Xa Level POC ABG pH 7.470 H POC ABG pCO2 53.0 H POC ABG pO2 120 H Sodium Potassium 3.0 L Chloride Carbon Dioxide 33 H BUN Creatinine 0.3 L Glucose 116 H POC Glucose Calcium 8.2 L Phosphorus TIBC Total Bilirubin Direct Bilirubin Alkaline Phosphatase C-Reactive Protein NT-Pro-B Natriuret Pep Total Protein Albumin Lipase Vitamin B12 Folate Ur Specific [place] Vancomycin Trough Crossmatch 05/06/29/18 06/29/18 05:58 05:58 12:21 WBC 25.8 H RBC Hgb Hct MCHC RDW Plt Count 661 H Seg Neuts % (Manual) Lymphocytes % (Manual) Seg Neutrophils # Man Lymphocytes # (Manual) Monocytes # (Manual) PT INR APTT Heparin Anti-Xa Level POC ABG pH POC ABG pCO2 POC ABG pO2 Sodium Potassium 2.7 L* Chloride Carbon Dioxide 35 H BUN Creatinine 0.3 L Glucose 132 H POC Glucose 130 H Calcium 8.2 L Phosphorus TIBC Total Bilirubin Direct Bilirubin Alkaline Phosphatase C-Reactive Protein NT-Pro-B Natriuret Pep Total Protein Albumin Lipase Vitamin B12 Folate Ur Specific [place] Vancomycin Trough Crossmatch 06/29/18 06/29/18 06/30/18 17:53 18:52 05:02 WBC RBC Hgb Hct MCHC RDW Plt Count Seg Neuts % (Manual) Lymphocytes % (Manual) Seg Neutrophils # Man Lymphocytes # (Manual) Monocytes # (Manual) PT INR APTT Heparin Anti-Xa Level POC ABG pH POC ABG pCO2 POC ABG pO2 Sodium Potassium 3.1 L Chloride Carbon Dioxide 33 H BUN Creatinine 0.3 L Glucose 129 H POC Glucose 109 H 106 H Calcium 8.2 L Phosphorus TIBC Total Bilirubin Direct Bilirubin Alkaline Phosphatase C-Reactive Protein NT-Pro-B Natriuret Pep Total Protein Albumin Lipase Vitamin B12 Folate Ur Specific [place] Vancomycin Trough Crossmatch 06/30/18 06/30/18 06/30/18 07:19 07:19 16:17 WBC 23.1 H RBC Hgb Hct MCHC RDW Plt Count 652 H Seg Neuts % (Manual) Lymphocytes % (Manual) Seg Neutrophils # Man Lymphocytes # (Manual) Monocytes # (Manual) PT INR APTT Heparin Anti-Xa Level POC ABG pH POC ABG pCO2 POC ABG pO2 Sodium Potassium 2.8 L* Chloride Carbon Dioxide BUN Creatinine 0.3 L Glucose 109 H POC Glucose Calcium 8.2 L Phosphorus TIBC Total Bilirubin Direct Bilirubin Alkaline Phosphatase C-Reactive Protein NT-Pro-B Natriuret Pep Total Protein Albumin Lipase Vitamin B12 Folate Ur Specific [place] Vancomycin Trough < 4.0 L Crossmatch 06/30/18 06/30/18 06/30/18 16:17 16:17 19:00 WBC RBC Hgb Hct MCHC RDW Plt Count Seg Neuts % (Manual) Lymphocytes % (Manual) Seg Neutrophils # Man Lymphocytes # (Manual) Monocytes # (Manual) PT INR APTT Heparin Anti-Xa Level POC ABG pH POC ABG pCO2 POC ABG pO2 Sodium Potassium 3.0 L 3.2 L Chloride Carbon Dioxide BUN Creatinine 0.3 L Glucose 138 H POC Glucose Calcium Phosphorus 2.30 L D TIBC Total Bilirubin Direct Bilirubin Alkaline Phosphatase C-Reactive Protein NT-Pro-B Natriuret Pep Total Protein Albumin Lipase Vitamin B12 Folate Ur Specific [place] Vancomycin Trough Crossmatch 07/01/18 07/01/18 07/01/18 04:04 04:04 12:21 WBC 26.3 H RBC Hgb Hct MCHC RDW Plt Count Seg Neuts % (Manual) Lymphocytes % (Manual) Seg Neutrophils # Man Lymphocytes # (Manual) Monocytes # (Manual) PT INR APTT Heparin Anti-Xa Level POC ABG pH POC ABG pCO2 POC ABG pO2 Sodium 147 H Potassium Chloride Carbon Dioxide BUN 22 H Creatinine 0.3 L Glucose 126 H POC Glucose 190 H Calcium Phosphorus TIBC Total Bilirubin Direct Bilirubin Alkaline Phosphatase C-Reactive Protein NT-Pro-B Natriuret Pep Total Protein Albumin Lipase Vitamin B12 Folate Ur Specific [place] Vancomycin Trough Crossmatch 07/02/18 07/02/18 07/03/18 04:17 04:17 09:58 WBC 40.2 H* 48.6 H* RBC 3.51 L Hgb Hct MCHC RDW Plt Count Seg Neuts % (Manual) Lymphocytes % (Manual) Seg Neutrophils # Man Lymphocytes # (Manual) Monocytes # (Manual) PT INR APTT Heparin Anti-Xa Level POC ABG pH POC ABG pCO2 POC ABG pO2 Sodium Potassium 3.4 L Chloride Carbon Dioxide 32 H BUN 30 H Creatinine 0.3 L Glucose 166 H POC Glucose Calcium Phosphorus TIBC Total Bilirubin Direct Bilirubin Alkaline Phosphatase C-Reactive Protein NT-Pro-B Natriuret Pep Total Protein Albumin Lipase Vitamin B12 Folate Ur Specific [place] Vancomycin Trough Crossmatch 07/03/18 07/03/18 07/04/18 09:58 11:07 05:37 WBC 48.5 H* RBC 3.53 L Hgb Hct MCHC RDW Plt Count 477 H Seg Neuts % (Manual) Lymphocytes % (Manual) Seg Neutrophils # Man Lymphocytes # (Manual) Monocytes # (Manual) PT INR APTT Heparin Anti-Xa Level POC ABG pH POC ABG pCO2 POC ABG pO2 Sodium Potassium 3.5 L Chloride Carbon Dioxide 31 H BUN 33 H Creatinine 0.3 L Glucose 162 H POC Glucose Calcium Phosphorus TIBC Total Bilirubin Direct Bilirubin Alkaline Phosphatase C-Reactive Protein 13.20 H NT-Pro-B Natriuret Pep Total Protein Albumin Lipase Vitamin B12 Folate Ur Specific [place] Vancomycin Trough Crossmatch 07/04/18 07/04/18 07/04/18 05:37 17:54 17:54 WBC RBC Hgb Hct MCHC RDW Plt Count Seg Neuts % (Manual) Lymphocytes % (Manual) Seg Neutrophils # Man Lymphocytes # (Manual) Monocytes # (Manual) PT INR APTT Heparin Anti-Xa Level POC ABG pH POC ABG pCO2 POC ABG pO2 Sodium Potassium 3.4 L Chloride Carbon Dioxide 32 H BUN 30 H Creatinine 0.3 L Glucose 146 H POC Glucose Calcium Phosphorus TIBC Total Bilirubin Direct Bilirubin Alkaline Phosphatase C-Reactive Protein NT-Pro-B Natriuret Pep Total Protein Albumin Lipase Vitamin B12 Folate Ur Specific [place] Vancomycin Trough Crossmatch See Detail See Detail 07/04/18 07/04/18 07/04/18 19:00 19:00 21:50 WBC RBC Hgb 9.5 L Hct 28.7 L MCHC RDW Plt Count 512 H Seg Neuts % (Manual) Lymphocytes % (Manual) Seg Neutrophils # Man Lymphocytes # (Manual) Monocytes # (Manual) PT 18.7 H INR 1.46 H APTT Heparin Anti-Xa Level POC ABG pH 7.469 H POC ABG pCO2 45.8 H POC ABG pO2 109 H Sodium Potassium Chloride Carbon Dioxide BUN Creatinine Glucose POC Glucose Calcium Phosphorus TIBC Total Bilirubin Direct Bilirubin Alkaline Phosphatase C-Reactive Protein NT-Pro-B Natriuret Pep Total Protein Albumin Lipase Vitamin B12 Folate Ur Specific [place] Vancomycin Trough Crossmatch 07/05/18 07/05/18 07/05/18 03:14 03:14 03:14 WBC 36.6 H RBC 3.12 L Hgb 9.1 L Hct 27.5 L MCHC RDW Plt Count 529 H Seg Neuts % (Manual) Lymphocytes % (Manual) Seg Neutrophils # Man Lymphocytes # (Manual) Monocytes # (Manual) PT INR APTT Heparin Anti-Xa Level 0.10 L POC ABG pH POC ABG pCO2 POC ABG pO2 Sodium Potassium Chloride Carbon Dioxide BUN 29 H Creatinine 0.2 L Glucose 149 H POC Glucose Calcium 8.1 L Phosphorus TIBC Total Bilirubin Direct Bilirubin Alkaline Phosphatase C-Reactive Protein NT-Pro-B Natriuret Pep Total Protein 4.5 L Albumin 1.6 L Lipase Vitamin B12 Folate Ur Specific [place] Vancomycin Trough Crossmatch 07/05/18 07/05/18 07/05/18 04:45 10:57 10:57 WBC RBC Hgb Hct MCHC RDW Plt Count Seg Neuts % (Manual) Lymphocytes % (Manual) Seg Neutrophils # Man Lymphocytes # (Manual) Monocytes # (Manual) PT INR APTT Heparin Anti-Xa Level < 0.10 L POC ABG pH POC ABG pCO2 50.6 H POC ABG pO2 181 H Sodium Potassium Chloride Carbon Dioxide BUN Creatinine Glucose POC Glucose Calcium Phosphorus TIBC Total Bilirubin Direct Bilirubin Alkaline Phosphatase C-Reactive Protein NT-Pro-B Natriuret Pep Total Protein Albumin Lipase Vitamin B12 Folate Ur Specific [place] Vancomycin Trough 38.9 H Crossmatch 07/05/18 07/06/18 07/06/18 18:27 02:00 04:48 WBC RBC Hgb Hct MCHC RDW Plt Count Seg Neuts % (Manual) Lymphocytes % (Manual) Seg Neutrophils # Man Lymphocytes # (Manual) Monocytes # (Manual) PT INR APTT Heparin Anti-Xa Level < 0.10 L 0.23 L POC ABG pH POC ABG pCO2 POC ABG pO2 118 H Sodium Potassium Chloride Carbon Dioxide BUN Creatinine Glucose POC Glucose Calcium Phosphorus TIBC Total Bilirubin Direct Bilirubin Alkaline Phosphatase C-Reactive Protein NT-Pro-B Natriuret Pep Total Protein Albumin Lipase Vitamin B12 Folate Ur Specific [place] Vancomycin Trough Crossmatch 07/06/18 07/06/18 07/06/18 05:00 05:00 12:05 WBC 23.1 H RBC 2.50 L Hgb 7.3 L Hct 22.3 L MCHC RDW Plt Count 541 H Seg Neuts % (Manual) Lymphocytes % (Manual) Seg Neutrophils # Man Lymphocytes # (Manual) Monocytes # (Manual) PT INR APTT Heparin Anti-Xa Level 0.14 L POC ABG pH POC ABG pCO2 POC ABG pO2 Sodium Potassium Chloride 109.8 H Carbon Dioxide BUN 27 H Creatinine 0.2 L Glucose 157 H POC Glucose Calcium 7.7 L Phosphorus 1.60 L TIBC Total Bilirubin Direct Bilirubin Alkaline Phosphatase C-Reactive Protein NT-Pro-B Natriuret Pep Total Protein 4.5 L Albumin 1.7 L Lipase Vitamin B12 Folate Ur Specific [place] Vancomycin Trough Crossmatch 07/06/18 07/06/18 07/07/18 17:29 19:45 00:17 WBC RBC Hgb Hct MCHC RDW Plt Count Seg Neuts % (Manual) Lymphocytes % (Manual) Seg Neutrophils # Man Lymphocytes # (Manual) Monocytes # (Manual) PT INR APTT Heparin Anti-Xa Level 0.18 L POC ABG pH POC ABG pCO2 POC ABG pO2 Sodium Potassium Chloride Carbon Dioxide BUN Creatinine Glucose POC Glucose 141 H 143 H Calcium Phosphorus TIBC Total Bilirubin Direct Bilirubin Alkaline Phosphatase C-Reactive Protein NT-Pro-B Natriuret Pep Total Protein Albumin Lipase Vitamin B12 Folate Ur Specific [place] Vancomycin Trough Crossmatch 07/07/18 07/07/18 07/07/18 02:14 02:14 05:09 WBC RBC Hgb Hct MCHC RDW Plt Count Seg Neuts % (Manual) Lymphocytes % (Manual) Seg Neutrophils # Man Lymphocytes # (Manual) Monocytes # (Manual) PT INR APTT Heparin Anti-Xa Level < 0.10 L POC ABG pH POC ABG pCO2 POC ABG pO2 Sodium Potassium 3.4 L Chloride Carbon Dioxide BUN Creatinine < 0.2 L Glucose 127 H POC Glucose 126 H Calcium 7.6 L Phosphorus 2.10 L D TIBC Total Bilirubin Direct Bilirubin Alkaline Phosphatase C-Reactive Protein NT-Pro-B Natriuret Pep Total Protein Albumin Lipase Vitamin B12 Folate Ur Specific [place] Vancomycin Trough Crossmatch 07/07/18 07/07/18 07/07/18 07:08 10:57 11:50 WBC 19.3 H RBC 2.49 L Hgb 7.2 L Hct 22.2 L MCHC RDW Plt Count 517 H Seg Neuts % (Manual) Lymphocytes % (Manual) Seg Neutrophils # Man Lymphocytes # (Manual) Monocytes # (Manual) PT INR APTT Heparin Anti-Xa Level POC ABG pH POC ABG pCO2 POC ABG pO2 Sodium Potassium Chloride Carbon Dioxide BUN Creatinine Glucose POC Glucose 115 H Calcium Phosphorus TIBC 94 L Total Bilirubin Direct Bilirubin Alkaline Phosphatase C-Reactive Protein NT-Pro-B Natriuret Pep Total Protein Albumin Lipase Vitamin B12 Folate Ur Specific [place] Vancomycin Trough Crossmatch 07/07/18 07/07/18 07/07/18 11:50 11:50 15:20 WBC RBC Hgb Hct MCHC RDW Plt Count 489 H Seg Neuts % (Manual) Lymphocytes % (Manual) Seg Neutrophils # Man Lymphocytes # (Manual) Monocytes # (Manual) PT INR APTT Heparin Anti-Xa Level POC ABG pH POC ABG pCO2 POC ABG pO2 Sodium Potassium Chloride Carbon Dioxide BUN Creatinine Glucose POC Glucose Calcium Phosphorus TIBC Total Bilirubin Direct Bilirubin Alkaline Phosphatase C-Reactive Protein NT-Pro-B Natriuret Pep Total Protein Albumin Lipase Vitamin B12 924.8 H Folate 4.92 L Ur Specific [place] Vancomycin Trough Crossmatch 07/07/18 07/07/18 07/07/18 15:20 18:16 20:04 WBC RBC Hgb Hct MCHC RDW Plt Count Seg Neuts % (Manual) Lymphocytes % (Manual) Seg Neutrophils # Man Lymphocytes # (Manual) Monocytes # (Manual) PT 15.2 H INR APTT 42.2 H Heparin Anti-Xa Level < 0.10 L POC ABG pH POC ABG pCO2 POC ABG pO2 Sodium Potassium Chloride Carbon Dioxide BUN Creatinine Glucose POC Glucose 125 H Calcium Phosphorus TIBC Total Bilirubin Direct Bilirubin Alkaline Phosphatase C-Reactive Protein NT-Pro-B Natriuret Pep Total Protein Albumin Lipase Vitamin B12 Folate Ur Specific [place] Vancomycin Trough Crossmatch 07/08/18 07/08/18 07/08/18 01:07 03:40 03:40 WBC RBC Hgb Hct MCHC RDW Plt Count 477 H Seg Neuts % (Manual) Lymphocytes % (Manual) Seg Neutrophils # Man Lymphocytes # (Manual) Monocytes # (Manual) PT INR APTT Heparin Anti-Xa Level POC ABG pH POC ABG pCO2 POC ABG pO2 Sodium Potassium Chloride Carbon Dioxide BUN Creatinine < 0.2 L Glucose 161 H POC Glucose 132 H Calcium 7.9 L Phosphorus TIBC Total Bilirubin Direct Bilirubin Alkaline Phosphatase C-Reactive Protein NT-Pro-B Natriuret Pep Total Protein Albumin Lipase Vitamin B12 Folate Ur Specific [place] Vancomycin Trough Crossmatch 07/08/18 07/08/18 07/08/18 06:16 11:35 17:28 WBC RBC Hgb Hct MCHC RDW Plt Count Seg Neuts % (Manual) Lymphocytes % (Manual) Seg Neutrophils # Man Lymphocytes # (Manual) Monocytes # (Manual) PT INR APTT Heparin Anti-Xa Level POC ABG pH POC ABG pCO2 POC ABG pO2 Sodium Potassium Chloride Carbon Dioxide BUN Creatinine Glucose POC Glucose 143 H 154 H 136 H Calcium Phosphorus TIBC Total Bilirubin Direct Bilirubin Alkaline Phosphatase C-Reactive Protein NT-Pro-B Natriuret Pep Total Protein Albumin Lipase Vitamin B12 Folate Ur Specific [place] Vancomycin Trough Crossmatch 07/08/18 07/09/18 07/09/18 23:12 04:37 05:30 WBC RBC Hgb 8.6 L Hct 25.6 L D MCHC RDW Plt Count 445 H Seg Neuts % (Manual) Lymphocytes % (Manual) Seg Neutrophils # Man Lymphocytes # (Manual) Monocytes # (Manual) PT INR APTT Heparin Anti-Xa Level POC ABG pH POC ABG pCO2 46.9 H POC ABG pO2 120 H Sodium Potassium Chloride Carbon Dioxide BUN Creatinine Glucose POC Glucose 146 H Calcium Phosphorus TIBC Total Bilirubin Direct Bilirubin Alkaline Phosphatase C-Reactive Protein NT-Pro-B Natriuret Pep Total Protein Albumin Lipase Vitamin B12 Folate Ur Specific [place] Vancomycin Trough Crossmatch 07/09/18 07/09/18 07/09/18 05:30 05:34 23:41 WBC RBC Hgb Hct MCHC RDW Plt Count Seg Neuts % (Manual) Lymphocytes % (Manual) Seg Neutrophils # Man Lymphocytes # (Manual) Monocytes # (Manual) PT INR APTT Heparin Anti-Xa Level POC ABG pH POC ABG pCO2 POC ABG pO2 Sodium Potassium 3.3 L D Chloride Carbon Dioxide 33 H BUN Creatinine < 0.2 L Glucose 145 H POC Glucose 149 H 123 H Calcium 7.8 L Phosphorus 2.40 L TIBC Total Bilirubin Direct Bilirubin Alkaline Phosphatase C-Reactive Protein NT-Pro-B Natriuret Pep Total Protein Albumin Lipase Vitamin B12 Folate Ur Specific [place] Vancomycin Trough Crossmatch 07/10/18 07/10/18 07/10/18 04:32 05:45 05:50 WBC 12.4 H RBC 2.83 L Hgb 8.6 L Hct 24.8 L MCHC 35 H RDW 15.3 H Plt Count 477 H Seg Neuts % (Manual) Lymphocytes % (Manual) Seg Neutrophils # Man Lymphocytes # (Manual) Monocytes # (Manual) PT INR APTT Heparin Anti-Xa Level POC ABG pH POC ABG pCO2 48.5 H POC ABG pO2 Sodium Potassium Chloride Carbon Dioxide BUN Creatinine Glucose POC Glucose 124 H Calcium Phosphorus TIBC Total Bilirubin Direct Bilirubin Alkaline Phosphatase C-Reactive Protein NT-Pro-B Natriuret Pep Total Protein Albumin Lipase Vitamin B12 Folate Ur Specific [place] Vancomycin Trough Crossmatch 07/10/18 05:50 WBC RBC Hgb Hct MCHC RDW Plt Count Seg Neuts % (Manual) Lymphocytes % (Manual) Seg Neutrophils # Man Lymphocytes # (Manual) Monocytes # (Manual) PT INR APTT Heparin Anti-Xa Level POC ABG pH POC ABG pCO2 POC ABG pO2 Sodium Potassium Chloride Carbon Dioxide BUN Creatinine < 0.2 L Glucose 131 H POC Glucose Calcium 8.3 L Phosphorus TIBC Total Bilirubin Direct Bilirubin Alkaline Phosphatase C-Reactive Protein NT-Pro-B Natriuret Pep Total Protein 4.8 L Albumin 1.9 L Lipase Vitamin B12 Folate Ur Specific [place] Vancomycin Trough Crossmatch
[2018-07-10] MEDS ORDERED: VERSED IV ONE (14:37)
[2018-07-10] MEDS ORDERED: DIPRIVAN 10 MG/ML IV ONE (14:37)
[2018-07-10] MEDS ORDERED: SUBLIMAZE ONE (14:37)
[2018-07-10] MEDS ORDERED: KETALAR ONE (14:37)
--- NOTE | 2018-07-10 14:42 | Operative Report ---
PREOPERATIVE DIAGNOSES: Ischemic bowel, open abdomen. POSTOPERATIVE DIAGNOSES: Ischemic bowel, open abdomen. FINDINGS: 1. An 8 cm segment of necrotic small bowel. 2. All remaining colon was viable. 3. Dopplerable signals in the SMA and middle colic artery. IV FLUIDS: 700 mL ESTIMATED BLOOD LOSS: Less than 50 mL. URINE OUTPUT: 200 mL NG TUBE OUTPUT: 200 mL BLOOD GIVEN: Two units of PRBCs. PROCEDURES: Exploratory laparotomy, small bowel resection with primary anastomosis, right hemicolectomy with ileocolonic anastomosis, temporary closure of abdomen with ABThera VAC. SURGEON: Mary Wilcox DO WASHER OPERATOR: Ophleia Harper MD PATHOLOGY: 1. Portion of small bowel. 2. Right colon. SPECIMEN DISPOSITION: To lab. CONDITION AND DISPOSITION: The patient is stable to PACU. HISTORY OF PRESENT ILLNESS AND INDICATIONS: The patient is a 58-year-old female who presented to the hospital with perforated sigmoid diverticulitis. She was taken to the operating room and underwent exploratory laparotomy with Ezequiel procedure on 06/24/2018. Approximately one and half week after surgery, the patient was noted to have a persistently elevated white blood cell count and CT scan of the abdomen and pelvis showed SMV and SMA thrombosis as well as possibly ischemic bowel. She was taken to the operating room for an ex lap, small bowel resection, partial colon resection, and temporary abdominal closure with ABThera VAC on 07/04/2018 after a large portion of small bowel was found to be necrotic. The patient has been managed on a heparin drip and has remained stable. Reexploration of the abdomen was recommended and all risks, benefits, and alternatives to surgery were discussed with the patient's next of kin/ medical decision maker to return to the operating room for exploratory laparotomy, possible bowel resection. All questions were answered and consent obtained. DESCRIPTION OF PROCEDURE: The patient was identified in the preoperative area and taken back to the operating room and placed on the operating room table in supine position. After anesthesia was induced, the abdomen was prepped and draped in the usual sterile fashion and time-out performed. The ABThera VAC was removed and discarded. The abdomen was then inspected. The 5 lap pads that were placed during the previous surgery were all removed and accounted for. Loose adhesions between the small bowel were taken down bluntly using gloved finger and finger dissection and the small bowel was eviscerated. The small bowel was run from the ligament of Treitz to the terminal ileum. There was an 8 cm segment of necrotic small bowel without any perforation. The remaining small bowel and colon appeared viable. There were dopplerable signals in the SMA and middle colic artery. There was a palpable pulse in the SMA. It was therefore decided to resect the necrotic small bowel. A window was made in the mesentery at the proximal and distal margins of the small bowel with electrocautery and the small bowel was transected using a CORBY-75 mm blue load stapler x 2. The mesentery was ligated using EnSeal and the small bowel was passed off the table as a specimen. The small bowel was then aligned at the antimesenteric border and the corners of the staple line were cut using Metzenbaum scissors. A [id number] functional end-to-end small bowel anastomosis was created using a CORBY-75 mm blue load stapler. A 3-0 silk interrupted stitch was placed at the crotch of the staple line in order to decrease tension. The common enterotomy was checked for hemostasis, which was ensured. The common enterotomy was closed with a TA 60 stapler. The staple line was inspected and there was no bleeding. Proximal to this new anastomosis, there was a 6-cm piece of small bowel that did appear mildly ischemic. There was a weakly dopplerable signal in the vascular arcades leading to this segment. It was decided to leave this segment in situ and reevaluated during the next operation. The decision was then at this point made to perform a completion right hemicolectomy in order to perform an ileocolonic anastomosis with the transverse colon. There was a dopplerable signal in the middle colic artery. The lateral attachments to the right colon were taken down using electrocautery and the colon was mobilized from lateral to medial. The hepatic flexure was also mobilized. The mesentery of the right colon was ligated using the EnSeal and the ligation was stopped just to the right of the takeoff of the middle colic artery. The right colon was then transected to the right of the middle colic artery using a CORBY-75 mm blue load stapler and it was passed off the table as a specimen. The terminal ileum was then brought up to the transverse colon and arranged in an antimesenteric [id number] fashion. The corners of the staple line were cut off using Metzenbaum scissors and a [id number] functional end-to-end ileocolonic anastomosis was created using a CORBY-75 mm blue load stapler. Enterotomy was checked for hemostasis, which was carefully ensured. The common channel was then closed using a TA-60 stapler. The staple line was checked for hemostasis and any bleeding was controlled using 3-0 silk [id number] sutures. The mesenteric defect was closed with a combination of 2-0 Vicryl interrupted and running suture. The common channel was palpated and was widely opened. The abdomen was then irrigated until the irrigant returned clear. Elva powder was sprayed in the pelvis and in the right lower quadrant to ensure hemostasis. The small bowel was placed back into the abdomen in anatomic position and ABThera VAC was applied in the usual fashion. At the end of the case, all sponge, instrument, sharp counts were correct x 2. The patient was taken to PACU in stable condition. JOB# [id number] ANOOP/ROSIE MCDONNELL
[2018-07-10] MEDS ORDERED: NACL 0.9% IR ONE (15:11)
--- NOTE | 2018-07-10 15:58 | Progress Note ---
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 Acute mesenteric ischemic event is being managed by general surgery with appropriate bowel resections as the bowel was already and the SMA and SMV thrombus and the time course involved made thrombectomy not beneficial. Distal aortic thrombus. The patient has preserved pulses to the lower ex tremities and has no signs of ischemia. Given patient's critical status, recommend treatment with anticoagulation. Although the etiology of the thromboembolic event is unclear, suspect cardiac etiology of thrombus given its size. Given the unclear cause, patient will likely need anticoagulation for life. Consider SHAUNA once the patient's acute issues improve. Subjective Date of service: 07/10/18 Principal diagnosis: small bowel ischemiaperitonitis/penumonia Interval history: Intubated. Sister at bedside. Palpable pedal pulses. Can move toes, feet warm, and sensation intact. Objective - Constitutional Vitals: Vital Signs - 12hr 07/10/18 07/10/18 07/10/18 04:00 04:15 04:31 Temperature 97.7 F Pulse Rate 94 H 93 H 103 H Pulse Rate [ Anterior Bilateral Throughout] Pulse Rate [ Bilateral] Respiratory 18 18 17 Rate Respiratory Rate [Anterior Bilateral Throughout] Respiratory Rate [Bilateral ] Blood Pressure 121/73 121/73 121/73 O2 Sat by Pulse 100 100 99 Oximetry 07/10/18 07/10/18 07/10/18 04:32 04:45 05:00 Temperature Pulse Rate 102 H 94 H 92 H Pulse Rate [ Anterior Bilateral Throughout] Pulse Rate [ Bilateral] Respiratory 18 18 Rate Respiratory Rate [Anterior Bilateral Throughout] Respiratory Rate [Bilateral ] Blood Pressure 149/75 121/73 128/68 O2 Sat by Pulse 100 100 100 Oximetry 07/10/18 07/10/18 07/10/18 05:15 05:31 05:45 Temperature Pulse Rate 87 102 H 104 H Pulse Rate [ Anterior Bilateral Throughout] Pulse Rate [ Bilateral] Respiratory 19 19 18 Rate Respiratory Rate [Anterior Bilateral Throughout] Respiratory Rate [Bilateral ] Blood Pressure 128/68 128/68 128/68 O2 Sat by Pulse 100 100 100 Oximetry 07/10/18 07/10/18 07/10/18 06:00 06:15 06:31 Temperature Pulse Rate 97 H 89 91 H Pulse Rate [ Anterior Bilateral Throughout] Pulse Rate [ Bilateral] Respiratory 18 18 22 Rate Respiratory Rate [Anterior Bilateral Throughout] Respiratory Rate [Bilateral ] Blood Pressure 124/71 124/71 124/71 O2 Sat by Pulse 98 100 100 Oximetry 07/10/18 07/10/18 07/10/18 06:45 06:54 06:56 Temperature Pulse Rate 90 98 H Pulse Rate [ 101 H Anterior Bilateral Throughout] Pulse Rate [ Bilateral] Respiratory 18 Rate Respiratory 20 Rate [Anterior Bilateral Throughout] Respiratory Rate [Bilateral ] Blood Pressure 124/71 138/67 O2 Sat by Pulse 100 100 Oximetry 07/10/18 07/10/18 07/10/18 07:00 07:08 07:15 Temperature Pulse Rate 100 H 99 H Pulse Rate [ 103 H Anterior Bilateral Throughout] Pulse Rate [ Bilateral] Respiratory 19 18 Rate Respiratory 18 Rate [Anterior Bilateral Throughout] Respiratory Rate [Bilateral ] Blood Pressure 130/72 130/72 O2 Sat by Pulse 98 98 Oximetry 07/10/18 07/10/18 07/10/18 07:31 07:45 08:00 Temperature 97.8 F Pulse Rate 96 H 108 H 102 H Pulse Rate [ Anterior Bilateral Throughout] Pulse Rate [ Bilateral] Respiratory 22 21 24 Rate Respiratory Rate [Anterior Bilateral Throughout] Respiratory Rate [Bilateral ] Blood Pressure 130/72 130/72 125/71 O2 Sat by Pulse 98 99 99 Oximetry 07/10/18 07/10/18 07/10/18 08:15 08:31 08:45 Temperature Pulse Rate 100 H 96 H 107 H Pulse Rate [ Anterior Bilateral Throughout] Pulse Rate [ Bilateral] Respiratory 18 18 21 Rate Respiratory Rate [Anterior Bilateral Throughout] Respiratory Rate [Bilateral ] Blood Pressure 130/72 130/72 125/71 O2 Sat by Pulse 100 100 100 Oximetry 07/10/18 07/10/18 07/10/18 09:00 09:15 09:31 Temperature Pulse Rate 103 H 99 H 96 H Pulse Rate [ Anterior Bilateral Throughout] Pulse Rate [ Bilateral] Respiratory 19 18 18 Rate Respiratory Rate [Anterior Bilateral Throughout] Respiratory Rate [Bilateral ] Blood Pressure 130/79 130/79 130/79 O2 Sat by Pulse 99 100 Oximetry 07/10/18 07/10/18 07/10/18 09:45 10:00 10:15 Temperature Pulse Rate 89 98 H 95 H Pulse Rate [ Anterior Bilateral Throughout] Pulse Rate [ Bilateral] Respiratory 19 16 18 Rate Respiratory Rate [Anterior Bilateral Throughout] Respiratory Rate [Bilateral ] Blood Pressure 130/79 133/76 133/76 O2 Sat by Pulse 100 100 100 Oximetry 07/10/18 07/10/18 07/10/18 10:20 10:31 10:45 Temperature Pulse Rate 96 H 98 H 97 H Pulse Rate [ Anterior Bilateral Throughout] Pulse Rate [ Bilateral] Respiratory 16 16 18 Rate Respiratory Rate [Anterior Bilateral Throughout] Respiratory Rate [Bilateral ] Blood Pressure 160/88 133/76 133/76 O2 Sat by Pulse 100 100 100 Oximetry 07/10/18 07/10/18 07/10/18 11:00 11:15 11:31 Temperature Pulse Rate 94 H 94 H 96 H Pulse Rate [ Anterior Bilateral Throughout] Pulse Rate [ Bilateral] Respiratory 19 18 20 Rate Respiratory Rate [Anterior Bilateral Throughout] Respiratory Rate [Bilateral ] Blood Pressure 138/77 133/76 133/76 O2 Sat by Pulse 100 100 99 Oximetry 07/10/18 07/10/18 07/10/18 11:45 12:00 12:15 Temperature 97.4 F L Pulse Rate 103 H 100 H 102 H Pulse Rate [ Anterior Bilateral Throughout] Pulse Rate [ Bilateral] Respiratory 20 21 22 Rate Respiratory Rate [Anterior Bilateral Throughout] Respiratory Rate [Bilateral ] Blood Pressure 138/77 144/83 144/83 O2 Sat by Pulse 99 100 100 Oximetry 07/10/18 07/10/18 07/10/18 12:31 12:44 12:45 Temperature Pulse Rate 98 H 101 H Pulse Rate [ Anterior Bilateral Throughout] Pulse Rate [ 96 H Bilateral] Respiratory 21 30 H Rate Respiratory Rate [Anterior Bilateral Throughout] Respiratory 28 H Rate [Bilateral ] Blood Pressure 144/83 144/83 O2 Sat by Pulse 99 99 Oximetry 07/10/18 07/10/18 07/10/18 12:54 13:00 13:15 Temperature Pulse Rate 101 H 104 H Pulse Rate [ 100 H Anterior Bilateral Throughout] Pulse Rate [ 98 H Bilateral] Respiratory 21 22 Rate Respiratory 26 H Rate [Anterior Bilateral Throughout] Respiratory 26 H Rate [Bilateral ] Blood Pressure 136/78 136/78 O2 Sat by Pulse 98 99 Oximetry 07/10/18 07/10/18 07/10/18 13:31 13:45 14:00 Temperature Pulse Rate 108 H 101 H 99 H Pulse Rate [ Anterior Bilateral Throughout] Pulse Rate [ Bilateral] Respiratory 28 H 22 20 Rate Respiratory Rate [Anterior Bilateral Throughout] Respiratory Rate [Bilateral ] Blood Pressure 136/78 136/78 131/74 O2 Sat by Pulse 97 97 97 Oximetry 07/10/18 07/10/18 14:15 14:31 Temperature Pulse Rate 106 H 98 H Pulse Rate [ Anterior Bilateral Throughout] Pulse Rate [ Bilateral] Respiratory 19 23 Rate Respiratory Rate [Anterior Bilateral Throughout] Respiratory Rate [Bilateral ] Blood Pressure 131/74 131/74 O2 Sat by Pulse 99 100 Oximetry General appearance: Present: no acute distress, other (intubated) - EENT Eyes: EOM intact ENT: hearing intact - Respiratory Respiratory effort: other (intubated) Extremities: no ischemia, pulses intact, pulses symmetrical, normal temperature, normal color - Psychiatric Psychiatric: cooperative, other (intubated, but responds with head nods and shakes) - Labs CBC & Chem 7: 07/10/18 05:50 07/10/18 05:50 Labs: Abnormal lab results 07/09/18 07/10/18 07/10/18 Range/Units 23:41 04:32 05:45 WBC (4.5-11.0) K/mm3 RBC (3.65-5.03) M/mm3 Hgb (10.1-14.3) gm/dl Hct (30.3-42.9) % MCHC (30-34) % RDW (13.2-15.2) % Plt Count (140-440) K/mm3 Heparin Anti-Xa Level (0.3-0.7) U.I./ml POC ABG pCO2 48.5 H (35-45) Creatinine (0.7-1.2) mg/dL Glucose (65-100) mg/dL POC Glucose 123 H 124 H (70-105) Calcium (8.4-10.2) mg/dL Total Protein (6.3-8.2) g/dL Albumin (3.9-5) g/dL 07/10/18 07/10/18 07/10/18 Range/Units 05:50 05:50 10:11 WBC 12.4 H (4.5-11.0) K/mm3 RBC 2.83 L (3.65-5.03) M/mm3 Hgb 8.6 L (10.1-14.3) gm/dl Hct 24.8 L (30.3-42.9) % MCHC 35 H (30-34) % RDW 15.3 H (13.2-15.2) % Plt Count 477 H (140-440) K/mm3 Heparin Anti-Xa Level < 0.10 L (0.3-0.7) U.I./ml POC ABG pCO2 (35-45) Creatinine < 0.2 L (0.7-1.2) mg/dL Glucose 131 H (65-100) mg/dL POC Glucose (70-105) Calcium 8.3 L (8.4-10.2) mg/dL Total Protein 4.8 L (6.3-8.2) g/dL Albumin 1.9 L (3.9-5) g/dL Medications & Allergies - Medications Allergies/Adverse Reactions: Allergies No Known Allergies Allergy (Unverified 06/24/18 10:41) Home Medications: Home Medications Medication Instructions Recorded Confirmed Last Taken Type No Known Home Medications [No 06/27/18 06/27/18 Unknown History Reported Home Medications] Active Medications: Generic Name Dose Route Start Last Admin Trade Name Freq PRN Reason Stop Dose Admin Albuterol 2.5 mg 07/02/18 07:44 Proventil IH Q4HRT PRN Shortness Of Breath Albuterol/Ipratropium 1 ampul 07/02/18 14:00 07/10/18 13:04 Duoneb *Not For Prn Use* IH Not Given TIDRT [facility] Budesonide 0.5 mg 07/02/18 20:00 07/10/18 07:14 Pulmicort IH Not Given Q12HRT [facility] Fentanyl 25 mcg 06/30/18 14:19 07/10/18 09:08 Sublimaze IV 25 mcg Q2H PRN Administration Pain, Moderate (4-6) Hydrophilic Ointment 1 applic 07/04/18 18:23 Vaseline Lip Therapy TP Q2HR PRN Dry Lips Metronidazole 500 mg in 100 mls @ 100 mls/hr 06/24/18 22:00 07/10/18 14:54 Flagyl 500 Mg/100 Ml IV Infused Q8H [facility] Infusion Protocol Fluconazole 200 mls @ 100 mls/hr 06/26/18 14:00 07/10/18 11:16 Diflucan IV Infused Q24HR [facility] Infusion Protocol Cefepime HCl 2 gm in 100 mls @ 200 mls/hr 06/27/18 14:00 07/10/18 09:45 Maxipime/Ns 2 Gm/100 Ml IV Infused Q12HR [facility] Infusion Protocol Fentanyl Citrate 2,000 mcg in 100 mls @ 2.605 mls/hr 07/04/18 19:00 07/10/18 06:47 Fentanyl Drip Premix IV 3 mcg/kg/hr TITR MAURICIO 7.815 mls/hr Administration Protocol 1 MCG/KG/HR Propofol 1,000 mg in 100 mls @ 1.563 mls/hr 07/04/18 19:00 07/08/18 19:33 Diprivan 10 Mg/Ml IV 0 mcg/kg/min TITR MAURICIO 0 mls/hr Titration Protocol 5 MCG/KG/MIN Heparin Sodium/Sodium Chloride 25,000 unit in 500 mls @ 15 mls/hr 07/07/18 14:00 07/10/18 07:00 Heparin/ 0.45% Nacl-25,000 Unit/500 Ml IV 0 units/hr TITR MAURICIO 0 mls/hr Titration Protocol 750 UNITS/HR Amino Acids/Electrolytes/Dextrose 1,800 mls @ 75 mls/hr 07/09/18 20:00 07/09/18 19:59 Tpn Adult IV 07/10/18 19:59 75 mls/hr DAILY@[email or web address] [facility] Administration Protocol Amino Acids/Electrolytes/Dextrose 1,800 mls @ 75 mls/hr 07/10/18 20:00 Tpn Adult IV 07/11/18 19:59 DAILY@1999 [facility] Protocol Multi-Ingred Cream/Lotion/Oil/Oint 1 applic 07/04/18 18:23 Artificial Tears Ophth Oint OU Q4HR PRN Dry Eye(s) Naloxone HCl 0.1 mg 06/24/18 18:55 Narcan 0.4 Mg/1 Ml IV Q2MIN PRN Res Rate </= 8 or 02 SAT < 92% Nicotine 14 mg 06/25/18 10:00 07/10/18 09:13 Habitrol TD 14 mg QDAY [facility] Administration Ondansetron HCl 4 mg 06/24/18 14:00 06/29/18 04:00 Zofran IV 4 mg Q8H PRN Administration Nausea And Vomiting Pantoprazole Sodium 40 mg 07/04/18 22:00 07/10/18 09:12 Protonix IV 40 mg BID MAURICIO Administration Sodium Chloride 10 ml 06/24/18 22:00 07/10/18 09:17 Sodium Chloride Flush Syringe 10 Ml IV 10 ml BID MAURICIO Administration Sodium Chloride 10 ml 06/24/18 14:00 07/07/18 16:07 Sodium Chloride Flush Syringe 10 Ml IV 10 ml PRN PRN Administration LINE FLUSH Sodium Chloride 5 ml 07/04/18 18:23 07/10/18 08:09 Nacl 0.9% 500 Ml IV 5 ml DIRECT PRN Administration [employer]
[2018-07-10] MEDS ORDERED: ZOFRAN ONE (16:03)
[2018-07-10] MEDS ORDERED: ZEMURON IV ONE (16:03)
[2018-07-10] MEDS ORDERED: DECADRON ONE (16:03)
--- NOTE | 2018-07-10 16:30 | Post Operative Note ---
Date of procedure: 07/10/18 (dictation: [id number]) Pre-op diagnosis: ischemic bowel and bowel perforation Post-op diagnosis: same Findings: normal small intestine. No further ischemic bowel. Both anastomoses look good. Procedure: Abdominal re-exploration and washout, cholecystectomy, primary closure of abdominal wall IVF - 600cc UOP 600cc EBL< 50cc Anesthesia: LOVE Surgeon: JIMMY DE LUNA Greenhouse Manager: MILA PATHAK Estimated blood loss: 50-100ml Pathology: list (gallbladder) Specimen disposition: to lab Condition: stable Disposition: ICU
--- NOTE | 2018-07-10 17:25 | Anesthesia Day of Surgery ---
Anesthesia Day of Surgery - Day of Surgery Patient Examined: Yes Patient H&P Reviewed: Yes Patient is NPO: Yes
[2018-07-10] MEDS ORDERED: TPN ADULT 1,800 ML IV SCH (20:00)
[2018-07-10] MEDS: HEPARIN/ 0.45% NACL-25,000 UNIT/500 ML 25,000 UNIT/500 ML BAG IV SCH (22:45)
--- NOTE | 2018-07-11 01:40 | Operative Report ---
PREOPERATIVE DIAGNOSES: Ischemic bowel and bowel perforation. POSTOPERATIVE DIAGNOSES: Ischemic bowel and bowel perforation. PROCEDURES: 1. Abdominal reexploration, washout. 2. Open cholecystectomy. 3. Primary closure of abdominal wall. ATTENDING PHYSICIAN: Jac Holder MD LEAFLET DISTRIBUTOR: Dr. Harper. FLUIDS: 600 mL. URINE OUTPUT: 600 mL. ESTIMATED BLOOD LOSS: Less than 50. FINDINGS: No evidence of any further ischemic bowel. All the bowel appeared viable. Both anastomoses of the small bowel, small bowel and the ileocolic anastomosis were completely intact without any evidence of any leakage or ischemia. Rest of the organs were normal. No evidence of infection was identified. SPECIMENS: Gallbladder. DRAINS: None. COMPLICATIONS: Stable transport to Recovery Room. INDICATIONS: This is a 58-year-old female who we initially met when she presented acutely with a bowel perforation. My partner, Dr. Wilcox took care of her and ultimately ended up doing a Ezequiel's procedure and giving her a colostomy. Later, she was found to have ischemic bowel and required resection. She is returned to the OR previously for washout and reanastomosis. We are now bringing her back today for another examination as well as consideration for closure. The team felt that with her need for TPN and inability to tolerate a diet immediately, ICU stay, etc., she would be at high risk for acalculous cholecystitis; therefore, the team discussed with the patient and the family about a planned cholecystectomy to avoid this complication if she has a high risk. Procedure risks and benefits were explained to the patient and family. Risks included but were not limited to infection, bleeding, pain, injury to surrounding structures, possible need for more surgery. The patient and family understood. Consent was obtained. OPERATIVE NOTE: The patient was brought down from ICU to the operating room and placed on the table in supine position. The patient was already intubated. Once general anesthesia was established, the patient was prepped and draped in the usual sterile fashion. The patient was already on antibiotics. SCDs were placed. The overlying portion of her ABThera was removed. Then, sterile prep and drape was done. Timeout was called. The inner foam and ABThera dressing were removed. Bowel was gently mobilized, taking care not to cause any enterotomies or disrupt the anastomosis. We were able to identify both anastomoses, both appeared completely intact and viable. There was concern in the last surgery that proximal to the small bowel anastomosis, there was an area that could be showing some signs of early ischemia. At this time, we see no evidence of any ischemia, all the bowel was viable. The rest of the organs viable. We then turned our attention to the gallbladder. As mentioned, this was a planned excision due to her high risk for acalculous cholecystitis. We began by dissecting the gallbladder off the liver bed with electrocautery. We identified the cystic artery and another small branch, both were clipped and divided. We dissected down to and isolated the cystic duct. Right angle clamp was placed on the duct, taking care not to go too far down and get a portion of the common bile duct. We tried to stay in a safe area above them, another clamp was placed on the gallbladder and cystic duct. Cystic duct was divided using a 3-0 silk stitch, I placed 2 stitches under the clamp and tied them to assure good closure. We then released the clamp. There was no evidence of any bile leak. We thoroughly washed out the abdomen. We saw no complications in the cholecystectomy site. There was no bleeding, no bile leak. Everything looked good. We had discussed placing a feeding tube; however, I felt that based on my recent report from the team, the patient was very close to extubation. Therefore, if there was some delay in oral intake, we could place a Dobbhoff tube and feed her that way until she is able to tolerate p.o. feeds. If she is going to be on the vent for a longer period of time, then I thought it may be worthwhile for her to have a gastrojejunostomy tube. Also, if the bowel was significantly distended if it looked, as though it may take a long time to recover that would be another reason; however, the bowel looked very good. She most likely will be extubated within 24 hours based on the ICU team's report. Therefore, I elected to hold off on placing the GJ tube. Instead, we changed the OG tube to an NG tube, so that if she is extubated tomorrow, we can leave the NG tube in place and decompress the stomach and then eventually feed her if necessary through them. Dr. Wilcox and Dr. Harper were in agreement. We then used a looped PDS #1 suture to close the fascia, we started from top and bottom and then completed and tied it in the upper midline. Subcutaneous tissue was washed out and the skin was closed with paris loosely. Skin was cleaned and dried, dressings were placed. The patient tolerated the procedure well. There were no complications. We did put a new colostomy bag on. I did speak with her significant other at the end of the case. JOB# [id number] YADIRA/ROSIE
--- NOTE | 2018-07-11 05:10 | XRay Report ---
PROCEDURE: XR CHEST 1V AP TECHNIQUE: Chest radiograph single view. HISTORY: follow up respiratory failure COMPARISONS: 07/27/2018 . FINDINGS: Heart: Normal. Mediastinum/Vessels: Normal. Lungs/Pleural space: There is stable bilateral interstitial prominence. Mild congestion cannot be ex clude. There is very mild atelectasis in left lung base.. Bony thorax: No acute osseous abnormality. Life support devices: The ET tube and NG tube appear in good position. The tip of the right-sided PIC C line is in good position in the distal SVC.. IMPRESSION: Stable bilateral interstitial changes as described. Mild atelectasis in left lung base.. This document is electronically signed by Charles Dodd MD., July 11 2018 06:08:31 AM ET
[2018-07-11 05:44] LABS: Hematocrit 28.1 % (30.3-42.9); Hemoglobin 9.4 gm/dl (10.1-14.3); Mean Corpuscular HGB Conc 34 % (30-34); Mean Corpuscular Volume 88 fl (79-97); Platelet Count 528 K/mm3 (140-440); Red Blood Count 3.19 M/mm3 (3.65-5.03); Red Cell Distribution Width 15.2 % (13.2-15.2)
[2018-07-11] MEDS: FLAGYL 500 MG/100 ML 500 MG/100 ML BAG IV SCH ×3 (05:55→21:52)
[2018-07-11] MEDS: fentaNYL DRIP Premix 2,000 MCG/100 ML BAG IV SCH (06:07)
[2018-07-11 06:12] LABS: Alanine Aminotransferase 25 units/L (7-56); Albumin 2.5 g/dL (3.9-5); BUN/Creatinine Ratio 60; Blood Urea Nitrogen 12 mg/dL (7-17); Calcium 8.7 mg/dL (8.4-10.2); Hemolysis Index 7
[2018-07-11 06:17] LABS: Bilirubin,Direct < 0.2 mg/dL (0-0.2)
[2018-07-11 07:23] LABS: Anisocytosis 1+; Band Neutrophils # (Manual) 1.8 K/mm3; Basophils % (Manual) 0 % (0.0-1.8); Eosinophils % (Manual) 0 % (0.0-4.3); Stomatocytes Few; Total Cells Counted 100
[2018-07-11 07:24] LABS: Platelet Estimate Appears Increased; Target Cells Rare
[2018-07-11] MEDS: DUONEB *Not for PRN Use IH SCH ×3 (08:29→20:34)
[2018-07-11] MEDS: PULMICORT IH SCH ×2 (08:29→20:35)
--- NOTE | 2018-07-11 08:54 | Progress Note ---
Assessment and Plan 58 y/o female with acute respiratory failure secondary to volume overload and possible COPD exacerbation Post op from [facility] for perforated viscous, now with recurrent surgical issues and intubation, going back to OR today. 1. Extubate today. 2. Continue TPN 3. Abx therapy per ID. 4. Reviewed IR note and they suggest SHAUNA when acute issues resolve, assuming they mean her abdomen. 5. Prognosis is guarded. CCt 31 minutes. Subjective Date of service: 07/11/18 Principal diagnosis: small bowel ischemiaperitonitis/penumonia Interval history: No acute events. Successful surgery on yesterday. Given the timing of return to unit elected to keep intubated overnight and extubate this am. RT at bedside. Patient awake and alert. Not on sedation. Following commands. Objective Vital Signs - 12hr 07/10/18 07/10/18 07/10/18 21:01 21:15 21:30 Temperature Pulse Rate 116 H 116 H 113 H Pulse Rate [ From Monitor] Respiratory 22 18 19 Rate Blood Pressure 135/78 143/76 140/75 O2 Sat by Pulse 97 96 97 Oximetry 07/10/18 07/10/18 07/10/18 21:45 22:00 22:15 Temperature Pulse Rate 116 H 117 H 116 H Pulse Rate [ From Monitor] Respiratory 18 18 18 Rate Blood Pressure 142/73 142/75 141/73 O2 Sat by Pulse 96 96 96 Oximetry 07/10/18 07/10/18 07/10/18 22:30 22:45 22:54 Temperature 98.6 F Pulse Rate 113 H 114 H Pulse Rate [ From Monitor] Respiratory 18 18 Rate Blood Pressure 143/76 135/75 O2 Sat by Pulse 97 97 Oximetry 07/10/18 07/10/18 07/10/18 23:00 23:15 23:16 Temperature Pulse Rate 116 H 112 H 112 H Pulse Rate [ From Monitor] Respiratory 18 18 18 Rate Blood Pressure 136/79 133/72 135/75 O2 Sat by Pulse 97 97 98 Oximetry 07/10/18 07/10/18 07/11/18 23:30 23:45 00:00 Temperature Pulse Rate 120 H 116 H 113 H Pulse Rate [ 113 H From Monitor] Respiratory 19 18 18 Rate Blood Pressure 127/72 135/77 132/74 O2 Sat by Pulse 97 98 99 Oximetry 07/11/18 07/11/1807/11/19 00:15 00:17 00:30 Temperature Pulse Rate 112 H 113 H 112 H Pulse Rate [ From Monitor] Respiratory 18 18 Rate Blood Pressure 123/79 132/69 O2 Sat by Pulse 99 98 Oximetry 07/11/18 07/11/18 07/11/18 00:45 01:00 01:15 Temperature Pulse Rate 112 H 115 H 110 H Pulse Rate [ From Monitor] Respiratory 18 18 18 Rate Blood Pressure 129/72 135/71 127/73 O2 Sat by Pulse 98 97 98 Oximetry 07/11/18 07/11/18 07/11/18 01:30 01:45 02:00 Temperature Pulse Rate 115 H 113 H 111 H Pulse Rate [ From Monitor] Respiratory 17 17 18 Rate Blood Pressure 142/73 144/70 123/70 O2 Sat by Pulse 97 97 99 Oximetry 07/11/18 07/11/18 07/11/18 02:15 02:30 02:45 Temperature Pulse Rate 113 H 113 H 106 H Pulse Rate [ From Monitor] Respiratory 15 17 16 Rate Blood Pressure 116/75 120/70 119/72 O2 Sat by Pulse 98 97 98 Oximetry 07/11/18 07/11/18 07/11/18 03:00 03:15 03:19 Temperature 98.5 F Pulse Rate 107 H 114 H Pulse Rate [ From Monitor] Respiratory 17 17 Rate Blood Pressure 127/75 125/66 O2 Sat by Pulse 97 Oximetry 07/11/18 07/11/18 07/11/18 03:30 03:45 03:56 Temperature Pulse Rate 103 H 105 H 121 H Pulse Rate [ From Monitor] Respiratory 17 16 Rate Blood Pressure 126/71 127/67 127/67 O2 Sat by Pulse 99 97 99 Oximetry 07/11/18 07/11/18 07/11/18 04:00 04:15 04:30 Temperature Pulse Rate 121 H 117 H 116 H Pulse Rate [ 118 H From Monitor] Respiratory 18 18 16 Rate Blood Pressure 141/76 137/77 141/84 O2 Sat by Pulse 98 98 99 Oximetry 07/11/18 07/11/18 07/11/18 04:45 05:00 05:15 Temperature Pulse Rate 116 H 114 H 113 H Pulse Rate [ From Monitor] Respiratory 17 18 17 Rate Blood Pressure 135/75 142/75 136/78 O2 Sat by Pulse 100 97 97 Oximetry 07/11/18 07/11/18 07/11/18 05:30 05:45 06:00 Temperature Pulse Rate 109 H 113 H 109 H Pulse Rate [ From Monitor] Respiratory 18 17 18 Rate Blood Pressure 133/76 135/76 126/74 O2 Sat by Pulse 97 98 96 Oximetry 07/11/18 07/11/18 07/11/18 06:15 06:30 06:45 Temperature Pulse Rate 110 H 107 H 110 H Pulse Rate [ From Monitor] Respiratory 18 18 18 Rate Blood Pressure 129/79 121/80 141/77 O2 Sat by Pulse 97 99 96 Oximetry 07/11/18 07/11/18 07/11/18 07:00 07:15 07:30 Temperature Pulse Rate 111 H 110 H 111 H Pulse Rate [ From Monitor] Respiratory 18 18 17 Rate Blood Pressure 136/79 134/75 137/74 O2 Sat by Pulse 96 96 97 Oximetry 07/11/18 07/11/18 07/11/18 07:45 08:00 08:15 Temperature 98.8 F Pulse Rate 111 H 109 H 110 H Pulse Rate [ 110 H From Monitor] Respiratory 18 16 19 Rate Blood Pressure 132/75 129/76 135/74 O2 Sat by Pulse 97 96 97 Oximetry 07/11/18 07/11/18 08:20 08:44 Temperature Pulse Rate 114 H 117 H Pulse Rate [ From Monitor] Respiratory 15 Rate Blood Pressure 93/76 103/82 O2 Sat by Pulse 98 98 Oximetry Constitutional: no acute distress, alert Eyes: non-icteric ENT: oropharynx moist, other (ETT in position) Neck: supple, no JVD Effort: normal Ascultation: Bilateral: diminished breath sounds Percussion: Bilateral: not dull Tactile fremitus: Bilateral: normal Cardiovascular: regular rate and rhythm Gastrointestinal: hypoactive bowel sounds, tender, other (mildly distended,open wound covered exploratory lab,colostomy) Integumentary: normal Extremities: no cyanosis, no edema Neurologic: normal mental status, non-focal exam Psychiatric: mood appropriate CBC and BMP: 07/11/18 05:13 07/11/18 05:13 ABG, PT/INR, D-dimer: ABG POC ABG pH 7.431 (7.35-7.45) 07/10/18 04:32 POC ABG pCO2 48.5 (35-45) H 07/10/18 04:32 POC ABG pO2 104 (80-105) 07/10/18 04:32 POC ABG HCO3 32.2 (22-26 mml/L) 07/10/18 04:32 POC ABG Total CO2 34 (23-27mmol/L) 07/10/18 04:32 POC ABG O2 Sat 98 07/10/18 04:32 PT/INR, D-dimer PT 15.2 Sec. (12.2-14.9) H 07/07/18 15:20 INR 1.13 (0.87-1.13) 07/07/18 15:20 Abnormal lab findings: Abnormal Labs 06/24/18 06/24/18 06/24/18 11:18 11:19 11:19 WBC 19.0 H RBC Hgb Hct MCHC 35 H RDW Plt Count 457 H Seg Neuts % (Manual) 88.0 H Lymphocytes % (Manual) 2.0 L Monocytes % (Manual) Seg Neutrophils # Man 16.7 H Lymphocytes # (Manual) 0.4 L Monocytes # (Manual) PT 15.9 H INR 1.19 H APTT Heparin Anti-Xa Level POC ABG pH POC ABG pCO2 POC ABG pO2 Sodium 136 L Potassium 2.8 L* Chloride 96.7 L Carbon Dioxide BUN Creatinine 0.4 L Glucose 146 H POC Glucose Calcium Phosphorus TIBC Total Bilirubin 1.90 H Direct Bilirubin 1.5 H Alkaline Phosphatase 264 H C-Reactive Protein NT-Pro-B Natriuret Pep Total Protein Albumin 3.0 L Lipase 8 L Vitamin B12 Folate Ur Specific [place] Vancomycin Trough Crossmatch 06/24/18 06/24/18 06/25/18 13:00 19:47 06:55 WBC 18.3 H RBC Hgb Hct MCHC 35 H RDW Plt Count 481 H Seg Neuts % (Manual) 88.0 H Lymphocytes % (Manual) 4.0 L Monocytes % (Manual) Seg Neutrophils # Man 16.1 H Lymphocytes # (Manual) 0.7 L Monocytes # (Manual) PT INR APTT Heparin Anti-Xa Level POC ABG pH POC ABG pCO2 POC ABG pO2 Sodium Potassium 3.5 L D Chloride Carbon Dioxide 21 L BUN Creatinine 0.3 L Glucose 166 H POC Glucose Calcium 7.4 L D Phosphorus TIBC Total Bilirubin Direct Bilirubin Alkaline Phosphatase C-Reactive Protein NT-Pro-B Natriuret Pep Total Protein Albumin Lipase Vitamin B12 Folate Ur Specific [place] > 1.059 H Vancomycin Trough Crossmatch 06/25/18 06/26/18 06/26/18 06:55 11:54 11:54 WBC 19.9 H RBC 3.48 L Hgb Hct MCHC RDW Plt Count 583 H Seg Neuts % (Manual) Lymphocytes % (Manual) Monocytes % (Manual) Seg Neutrophils # Man Lymphocytes # (Manual) Monocytes # (Manual) PT INR APTT Heparin Anti-Xa Level POC ABG pH POC ABG pCO2 POC ABG pO2 Sodium 146 H Potassium 3.5 L Chloride 108.3 H 109.9 H Carbon Dioxide BUN Creatinine 0.4 L 0.3 L Glucose 159 H 153 H POC Glucose Calcium 7.7 L 8.2 L Phosphorus TIBC Total Bilirubin Direct Bilirubin Alkaline Phosphatase 152 H C-Reactive Protein NT-Pro-B Natriuret Pep Total Protein 5.3 L Albumin 2.1 L Lipase Vitamin B12 Folate Ur Specific [place] Vancomycin Trough Crossmatch 06/26/18 06/26/18 06/27/18 14:12 20:37 02:04 WBC RBC Hgb Hct MCHC RDW Plt Count Seg Neuts % (Manual) Lymphocytes % (Manual) Monocytes % (Manual) Seg Neutrophils # Man Lymphocytes # (Manual) Monocytes # (Manual) PT INR APTT Heparin Anti-Xa Level POC ABG pH 7.471 H 7.458 H POC ABG pCO2 POC ABG pO2 74 L 70 L Sodium Potassium Chloride Carbon Dioxide BUN Creatinine Glucose POC Glucose Calcium Phosphorus TIBC Total Bilirubin Direct Bilirubin Alkaline Phosphatase C-Reactive Protein 25.70 H NT-Pro-B Natriuret Pep Total Protein Albumin Lipase Vitamin B12 Folate Ur Specific [place] Vancomycin Trough Crossmatch 06/27/18 06/27/18 06/28/18 09:19 11:50 00:17 WBC 24.5 H 37.2 H RBC Hgb Hct MCHC RDW 15.4 H Plt Count 583 H 657 H Seg Neuts % (Manual) 98.0 H 88.5 H Lymphocytes % (Manual) 1.0 L 4.0 L Monocytes % (Manual) Seg Neutrophils # Man 24.0 H 32.9 H Lymphocytes # (Manual) 0.2 L Monocytes # (Manual) 1.1 H PT INR APTT Heparin Anti-Xa Level POC ABG pH POC ABG pCO2 POC ABG pO2 Sodium 146 H Potassium 3.5 L Chloride Carbon Dioxide BUN Creatinine 0.3 L Glucose 176 H POC Glucose Calcium 8.2 L Phosphorus TIBC Total Bilirubin Direct Bilirubin Alkaline Phosphatase C-Reactive Protein NT-Pro-B Natriuret Pep Total Protein Albumin Lipase Vitamin B12 Folate Ur Specific [place] Vancomycin Trough Crossmatch 06/28/18 06/28/18 06/28/18 09:56 09:56 09:56 WBC 37.8 H RBC Hgb Hct MCHC RDW 15.3 H Plt Count 634 H Seg Neuts % (Manual) Lymphocytes % (Manual) Monocytes % (Manual) Seg Neutrophils # Man Lymphocytes # (Manual) Monocytes # (Manual) PT INR APTT Heparin Anti-Xa Level POC ABG pH POC ABG pCO2 POC ABG pO2 Sodium 146 H Potassium 2.8 L* Chloride Carbon Dioxide 31 H BUN Creatinine 0.3 L Glucose 142 H POC Glucose Calcium 8.2 L Phosphorus TIBC Total Bilirubin Direct Bilirubin Alkaline Phosphatase C-Reactive Protein NT-Pro-B Natriuret Pep 1572 H Total Protein Albumin Lipase Vitamin B12 Folate Ur Specific [place] Vancomycin Trough Crossmatch 06/28/18 06/28/18 06/29/18 13:19 21:24 00:57 WBC 28.9 H RBC Hgb Hct MCHC RDW Plt Count 681 H Seg Neuts % (Manual) 93.0 H Lymphocytes % (Manual) 1.5 L Monocytes % (Manual) Seg Neutrophils # Man 26.9 H Lymphocytes # (Manual) 0.4 L Monocytes # (Manual) PT INR APTT Heparin Anti-Xa Level POC ABG pH 7.470 H POC ABG pCO2 53.0 H POC ABG pO2 120 H Sodium Potassium 3.0 L Chloride Carbon Dioxide 33 H BUN Creatinine 0.3 L Glucose 116 H POC Glucose Calcium 8.2 L Phosphorus TIBC Total Bilirubin Direct Bilirubin Alkaline Phosphatase C-Reactive Protein NT-Pro-B Natriuret Pep Total Protein Albumin Lipase Vitamin B12 Folate Ur Specific [place] Vancomycin Trough Crossmatch 06/29/18 06/29/18 06/29/18 05:58 05:58 12:21 WBC 25.8 H RBC Hgb Hct MCHC RDW Plt Count 661 H Seg Neuts % (Manual) Lymphocytes % (Manual) Monocytes % (Manual) Seg Neutrophils # Man Lymphocytes # (Manual) Monocytes # (Manual) PT INR APTT Heparin Anti-Xa Level POC ABG pH POC ABG pCO2 POC ABG pO2 Sodium Potassium 2.7 L* Chloride Carbon Dioxide 35 H BUN Creatinine 0.3 L Glucose 132 H POC Glucose 130 H Calcium 8.2 L Phosphorus TIBC Total Bilirubin Direct Bilirubin Alkaline Phosphatase C-Reactive Protein NT-Pro-B Natriuret Pep Total Protein Albumin Lipase Vitamin B12 Folate Ur Specific [place] Vancomycin Trough Crossmatch 06/29/18 06/29/18 06/30/18 17:53 18:52 05:02 WBC RBC Hgb Hct MCHC RDW Plt Count Seg Neuts % (Manual) Lymphocytes % (Manual) Monocytes % (Manual) Seg Neutrophils # Man Lymphocytes # (Manual) Monocytes # (Manual) PT INR APTT Heparin Anti-Xa Level POC ABG pH POC ABG pCO2 POC ABG pO2 Sodium Potassium 3.1 L Chloride Carbon Dioxide 33 H BUN Creatinine 0.3 L Glucose 129 H POC Glucose 109 H 106 H Calcium 8.2 L Phosphorus TIBC Total Bilirubin Direct Bilirubin Alkaline Phosphatase C-Reactive Protein NT-Pro-B Natriuret Pep Total Protein Albumin Lipase Vitamin B12 Folate Ur Specific [place] Vancomycin Trough Crossmatch 06/30/18 06/30/18 06/30/18 07:19 07:19 16:17 WBC 23.1 H RBC Hgb Hct MCHC RDW Plt Count 652 H Seg Neuts % (Manual) Lymphocytes % (Manual) Monocytes % (Manual) Seg Neutrophils # Man Lymphocytes # (Manual) Monocytes # (Manual) PT INR APTT Heparin Anti-Xa Level POC ABG pH POC ABG pCO2 POC ABG pO2 Sodium Potassium 2.8 L* Chloride Carbon Dioxide BUN Creatinine 0.3 L Glucose 109 H POC Glucose Calcium 8.2 L Phosphorus TIBC Total Bilirubin Direct Bilirubin Alkaline Phosphatase C-Reactive Protein NT-Pro-B Natriuret Pep Total Protein Albumin Lipase Vitamin B12 Folate Ur Specific [place] Vancomycin Trough < 4.0 L Crossmatch 06/30/18 06/30/18 06/30/18 16:17 16:17 19:00 WBC RBC Hgb Hct MCHC RDW Plt Count Seg Neuts % (Manual) Lymphocytes % (Manual) Monocytes % (Manual) Seg Neutrophils # Man Lymphocytes # (Manual) Monocytes # (Manual) PT INR APTT Heparin Anti-Xa Level POC ABG pH POC ABG pCO2 POC ABG pO2 Sodium Potassium 3.0 L 3.2 L Chloride Carbon Dioxide BUN Creatinine 0.3 L Glucose 138 H POC Glucose Calcium Phosphorus 2.30 L D TIBC Total Bilirubin Direct Bilirubin Alkaline Phosphatase C-Reactive Protein NT-Pro-B Natriuret Pep Total Protein Albumin Lipase Vitamin B12 Folate Ur Specific [place] Vancomycin Trough Crossmatch 07/01/18 07/01/18 07/01/18 04:04 04:04 12:21 WBC 26.3 H RBC Hgb Hct MCHC RDW Plt Count Seg Neuts % (Manual) Lymphocytes % (Manual) Monocytes % (Manual) Seg Neutrophils # Man Lymphocytes # (Manual) Monocytes # (Manual) PT INR APTT Heparin Anti-Xa Level POC ABG pH POC ABG pCO2 POC ABG pO2 Sodium 147 H Potassium Chloride Carbon Dioxide BUN 22 H Creatinine 0.3 L Glucose 126 H POC Glucose 190 H Calcium Phosphorus TIBC Total Bilirubin Direct Bilirubin Alkaline Phosphatase C-Reactive Protein NT-Pro-B Natriuret Pep Total Protein Albumin Lipase Vitamin B12 Folate Ur Specific [place] Vancomycin Trough Crossmatch 07/02/18 07/02/18 07/03/18 04:17 04:17 09:58 WBC 40.2 H* 48.6 H* RBC 3.51 L Hgb Hct MCHC RDW Plt Count Seg Neuts % (Manual) Lymphocytes % (Manual) Monocytes % (Manual) Seg Neutrophils # Man Lymphocytes # (Manual) Monocytes # (Manual) PT INR APTT Heparin Anti-Xa Level POC ABG pH POC ABG pCO2 POC ABG pO2 Sodium Potassium 3.4 L Chloride Carbon Dioxide 32 H BUN 30 H Creatinine 0.3 L Glucose 166 H POC Glucose Calcium Phosphorus TIBC Total Bilirubin Direct Bilirubin Alkaline Phosphatase C-Reactive Protein NT-Pro-B Natriuret Pep Total Protein Albumin Lipase Vitamin B12 Folate Ur Specific [place] Vancomycin Trough Crossmatch 07/03/18 07/03/18 07/04/18 09:58 11:07 05:37 WBC 48.5 H* RBC 3.53 L Hgb Hct MCHC RDW Plt Count 477 H Seg Neuts % (Manual) Lymphocytes % (Manual) Monocytes % (Manual) Seg Neutrophils # Man Lymphocytes # (Manual) Monocytes # (Manual) PT INR APTT Heparin Anti-Xa Level POC ABG pH POC ABG pCO2 POC ABG pO2 Sodium Potassium 3.5 L Chloride Carbon Dioxide 31 H BUN 33 H Creatinine 0.3 L Glucose 162 H POC Glucose Calcium Phosphorus TIBC Total Bilirubin Direct Bilirubin Alkaline Phosphatase C-Reactive Protein 13.20 H NT-Pro-B Natriuret Pep Total Protein Albumin Lipase Vitamin B12 Folate Ur Specific [place] Vancomycin Trough Crossmatch 07/04/18 07/04/18 07/04/18 05:37 17:54 17:54 WBC RBC Hgb Hct MCHC RDW Plt Count Seg Neuts % (Manual) Lymphocytes % (Manual) Monocytes % (Manual) Seg Neutrophils # Man Lymphocytes # (Manual) Monocytes # (Manual) PT INR APTT Heparin Anti-Xa Level POC ABG pH POC ABG pCO2 POC ABG pO2 Sodium Potassium 3.4 L Chloride Carbon Dioxide 32 H BUN 30 H Creatinine 0.3 L Glucose 146 H POC Glucose Calcium Phosphorus TIBC Total Bilirubin Direct Bilirubin Alkaline Phosphatase C-Reactive Protein NT-Pro-B Natriuret Pep Total Protein Albumin Lipase Vitamin B12 Folate Ur Specific [place] Vancomycin Trough Crossmatch See Detail See Detail 07/04/18 07/04/18 07/04/18 19:00 19:00 21:50 WBC RBC Hgb 9.5 L Hct 28.7 L MCHC RDW Plt Count 512 H Seg Neuts % (Manual) Lymphocytes % (Manual) Monocytes % (Manual) Seg Neutrophils # Man Lymphocytes # (Manual) Monocytes # (Manual) PT 18.7 H INR 1.46 H APTT Heparin Anti-Xa Level POC ABG pH 7.469 H POC ABG pCO2 45.8 H POC ABG pO2 109 H Sodium Potassium Chloride Carbon Dioxide BUN Creatinine Glucose POC Glucose Calcium Phosphorus TIBC Total Bilirubin Direct Bilirubin Alkaline Phosphatase C-Reactive Protein NT-Pro-B Natriuret Pep Total Protein Albumin Lipase Vitamin B12 Folate Ur Specific [place] Vancomycin Trough Crossmatch 07/05/18 07/05/18 07/05/18 03:14 03:14 03:14 WBC 36.6 H RBC 3.12 L Hgb 9.1 L Hct 27.5 L MCHC RDW Plt Count 529 H Seg Neuts % (Manual) Lymphocytes % (Manual) Monocytes % (Manual) Seg Neutrophils # Man Lymphocytes # (Manual) Monocytes # (Manual) PT INR APTT Heparin Anti-Xa Level 0.10 L POC ABG pH POC ABG pCO2 POC ABG pO2 Sodium Potassium Chloride Carbon Dioxide BUN 29 H Creatinine 0.2 L Glucose 149 H POC Glucose Calcium 8.1 L Phosphorus TIBC Total Bilirubin Direct Bilirubin Alkaline Phosphatase C-Reactive Protein NT-Pro-B Natriuret Pep Total Protein 4.5 L Albumin 1.6 L Lipase Vitamin B12 Folate Ur Specific [place] Vancomycin Trough Crossmatch 07/05/18 07/05/18 07/05/18 04:45 10:57 10:57 WBC RBC Hgb Hct MCHC RDW Plt Count Seg Neuts % (Manual) Lymphocytes % (Manual) Monocytes % (Manual) Seg Neutrophils # Man Lymphocytes # (Manual) Monocytes # (Manual) PT INR APTT Heparin Anti-Xa Level < 0.10 L POC ABG pH POC ABG pCO2 50.6 H POC ABG pO2 181 H Sodium Potassium Chloride Carbon Dioxide BUN Creatinine Glucose POC Glucose Calcium Phosphorus TIBC Total Bilirubin Direct Bilirubin Alkaline Phosphatase C-Reactive Protein NT-Pro-B Natriuret Pep Total Protein Albumin Lipase Vitamin B12 Folate Ur Specific [place] Vancomycin Trough 38.9 H Crossmatch 07/05/18 07/06/18 07/06/18 18:27 02:00 04:48 WBC RBC Hgb Hct MCHC RDW Plt Count Seg Neuts % (Manual) Lymphocytes % (Manual) Monocytes % (Manual) Seg Neutrophils # Man Lymphocytes # (Manual) Monocytes # (Manual) PT INR APTT Heparin Anti-Xa Level < 0.10 L 0.23 L POC ABG pH POC ABG pCO2 POC ABG pO2 118 H Sodium Potassium Chloride Carbon Dioxide BUN Creatinine Glucose POC Glucose Calcium Phosphorus TIBC Total Bilirubin Direct Bilirubin Alkaline Phosphatase C-Reactive Protein NT-Pro-B Natriuret Pep Total Protein Albumin Lipase Vitamin B12 Folate Ur Specific [place] Vancomycin Trough Crossmatch 07/06/18 07/06/18 07/06/18 05:00 05:00 12:05 WBC 23.1 H RBC 2.50 L Hgb 7.3 L Hct 22.3 L MCHC RDW Plt Count 541 H Seg Neuts % (Manual) Lymphocytes % (Manual) Monocytes % (Manual) Seg Neutrophils # Man Lymphocytes # (Manual) Monocytes # (Manual) PT INR APTT Heparin Anti-Xa Level 0.14 L POC ABG pH POC ABG pCO2 POC ABG pO2 Sodium Potassium Chloride 109.8 H Carbon Dioxide BUN 27 H Creatinine 0.2 L Glucose 157 H POC Glucose Calcium 7.7 L Phosphorus 1.60 L TIBC Total Bilirubin Direct Bilirubin Alkaline Phosphatase C-Reactive Protein NT-Pro-B Natriuret Pep Total Protein 4.5 L Albumin 1.7 L Lipase Vitamin B12 Folate Ur Specific [place] Vancomycin Trough Crossmatch 07/06/18 07/06/18 07/07/18 17:29 19:45 00:17 WBC RBC Hgb Hct MCHC RDW Plt Count Seg Neuts % (Manual) Lymphocytes % (Manual) Monocytes % (Manual) Seg Neutrophils # Man Lymphocytes # (Manual) Monocytes # (Manual) PT INR APTT Heparin Anti-Xa Level 0.18 L POC ABG pH POC ABG pCO2 POC ABG pO2 Sodium Potassium Chloride Carbon Dioxide BUN Creatinine Glucose POC Glucose 141 H 143 H Calcium Phosphorus TIBC Total Bilirubin Direct Bilirubin Alkaline Phosphatase C-Reactive Protein NT-Pro-B Natriuret Pep Total Protein Albumin Lipase Vitamin B12 Folate Ur Specific [place] Vancomycin Trough Crossmatch 07/07/18 07/07/18 07/07/18 02:14 02:14 05:09 WBC RBC Hgb Hct MCHC RDW Plt Count Seg Neuts % (Manual) Lymphocytes % (Manual) Monocytes % (Manual) Seg Neutrophils # Man Lymphocytes # (Manual) Monocytes # (Manual) PT INR APTT Heparin Anti-Xa Level < 0.10 L POC ABG pH POC ABG pCO2 POC ABG pO2 Sodium Potassium 3.4 L Chloride Carbon Dioxide BUN Creatinine < 0.2 L Glucose 127 H POC Glucose 126 H Calcium 7.6 L Phosphorus 2.10 L D TIBC Total Bilirubin Direct Bilirubin Alkaline Phosphatase C-Reactive Protein NT-Pro-B Natriuret Pep Total Protein Albumin Lipase Vitamin B12 Folate Ur Specific [place] Vancomycin Trough Crossmatch 07/07/18 07/07/18 07/07/18 07:08 10:57 11:50 WBC 19.3 H RBC 2.49 L Hgb 7.2 L Hct 22.2 L MCHC RDW Plt Count 517 H Seg Neuts % (Manual) Lymphocytes % (Manual) Monocytes % (Manual) Seg Neutrophils # Man Lymphocytes # (Manual) Monocytes # (Manual) PT INR APTT Heparin Anti-Xa Level POC ABG pH POC ABG pCO2 POC ABG pO2 Sodium Potassium Chloride Carbon Dioxide BUN Creatinine Glucose POC Glucose 115 H Calcium Phosphorus TIBC 94 L Total Bilirubin Direct Bilirubin Alkaline Phosphatase C-Reactive Protein NT-Pro-B Natriuret Pep Total Protein Albumin Lipase Vitamin B12 Folate Ur Specific [place] Vancomycin Trough Crossmatch 07/07/18 07/07/18 07/07/18 11:50 11:50 15:20 WBC RBC Hgb Hct MCHC RDW Plt Count 489 H Seg Neuts % (Manual) Lymphocytes % (Manual) Monocytes % (Manual) Seg Neutrophils # Man Lymphocytes # (Manual) Monocytes # (Manual) PT INR APTT Heparin Anti-Xa Level POC ABG pH POC ABG pCO2 POC ABG pO2 Sodium Potassium Chloride Carbon Dioxide BUN Creatinine Glucose POC Glucose Calcium Phosphorus TIBC Total Bilirubin Direct Bilirubin Alkaline Phosphatase C-Reactive Protein NT-Pro-B Natriuret Pep Total Protein Albumin Lipase Vitamin B12 924.8 H Folate 4.92 L Ur Specific [place] Vancomycin Trough Crossmatch 07/07/18 07/07/18 07/07/18 15:20 18:16 20:04 WBC RBC Hgb Hct MCHC RDW Plt Count Seg Neuts % (Manual) Lymphocytes % (Manual) Monocytes % (Manual) Seg Neutrophils # Man Lymphocytes # (Manual) Monocytes # (Manual) PT 15.2 H INR APTT 42.2 H Heparin Anti-Xa Level < 0.10 L POC ABG pH POC ABG pCO2 POC ABG pO2 Sodium Potassium Chloride Carbon Dioxide BUN Creatinine Glucose POC Glucose 125 H Calcium Phosphorus TIBC Total Bilirubin Direct Bilirubin Alkaline Phosphatase C-Reactive Protein NT-Pro-B Natriuret Pep Total Protein Albumin Lipase Vitamin B12 Folate Ur Specific [place] Vancomycin Trough Crossmatch 07/08/18 07/08/18 07/08/18 01:07 03:40 03:40 WBC RBC Hgb Hct MCHC RDW Plt Count 477 H Seg Neuts % (Manual) Lymphocytes % (Manual) Monocytes % (Manual) Seg Neutrophils # Man Lymphocytes # (Manual) Monocytes # (Manual) PT INR APTT Heparin Anti-Xa Level POC ABG pH POC ABG pCO2 POC ABG pO2 Sodium Potassium Chloride Carbon Dioxide BUN Creatinine < 0.2 L Glucose 161 H POC Glucose 132 H Calcium 7.9 L Phosphorus TIBC Total Bilirubin Direct Bilirubin Alkaline Phosphatase C-Reactive Protein NT-Pro-B Natriuret Pep Total Protein Albumin Lipase Vitamin B12 Folate Ur Specific [place] Vancomycin Trough Crossmatch 07/08/18 07/08/18 07/08/18 06:16 11:35 17:28 WBC RBC Hgb Hct MCHC RDW Plt Count Seg Neuts % (Manual) Lymphocytes % (Manual) Monocytes % (Manual) Seg Neutrophils # Man Lymphocytes # (Manual) Monocytes # (Manual) PT INR APTT Heparin Anti-Xa Level POC ABG pH POC ABG pCO2 POC ABG pO2 Sodium Potassium Chloride Carbon Dioxide BUN Creatinine Glucose POC Glucose 143 H 154 H 136 H Calcium Phosphorus TIBC Total Bilirubin Direct Bilirubin Alkaline Phosphatase C-Reactive Protein NT-Pro-B Natriuret Pep Total Protein Albumin Lipase Vitamin B12 Folate Ur Specific [place] Vancomycin Trough Crossmatch 07/08/18 07/09/18 07/09/18 23:12 04:37 05:30 WBC RBC Hgb 8.6 L Hct 25.6 L D MCHC RDW Plt Count 445 H Seg Neuts % (Manual) Lymphocytes % (Manual) Monocytes % (Manual) Seg Neutrophils # Man Lymphocytes # (Manual) Monocytes # (Manual) PT INR APTT Heparin Anti-Xa Level POC ABG pH POC ABG pCO2 46.9 H POC ABG pO2 120 H Sodium Potassium Chloride Carbon Dioxide BUN Creatinine Glucose POC Glucose 146 H Calcium Phosphorus TIBC Total Bilirubin Direct Bilirubin Alkaline Phosphatase C-Reactive Protein NT-Pro-B Natriuret Pep Total Protein Albumin Lipase Vitamin B12 Folate Ur Specific [place] Vancomycin Trough Crossmatch 07/09/18 07/09/18 07/09/18 05:30 05:34 23:41 WBC RBC Hgb Hct MCHC RDW Plt Count Seg Neuts % (Manual) Lymphocytes % (Manual) Monocytes % (Manual) Seg Neutrophils # Man Lymphocytes # (Manual) Monocytes # (Manual) PT INR APTT Heparin Anti-Xa Level POC ABG pH POC ABG pCO2 POC ABG pO2 Sodium Potassium 3.3 L D Chloride Carbon Dioxide 33 H BUN Creatinine < 0.2 L Glucose 145 H POC Glucose 149 H 123 H Calcium 7.8 L Phosphorus 2.40 L TIBC Total Bilirubin Direct Bilirubin Alkaline Phosphatase C-Reactive Protein NT-Pro-B Natriuret Pep Total Protein Albumin Lipase Vitamin B12 Folate Ur Specific [place] Vancomycin Trough Crossmatch 07/10/18 07/10/18 07/10/18 04:32 05:45 05:50 WBC 12.4 H RBC 2.83 L Hgb 8.6 L Hct 24.8 L MCHC 35 H RDW 15.3 H Plt Count 477 H Seg Neuts % (Manual) Lymphocytes % (Manual) Monocytes % (Manual) Seg Neutrophils # Man Lymphocytes # (Manual) Monocytes # (Manual) PT INR APTT Heparin Anti-Xa Level POC ABG pH POC ABG pCO2 48.5 H POC ABG pO2 Sodium Potassium Chloride Carbon Dioxide BUN Creatinine Glucose POC Glucose 124 H Calcium Phosphorus TIBC Total Bilirubin Direct Bilirubin Alkaline Phosphatase C-Reactive Protein NT-Pro-B Natriuret Pep Total Protein Albumin Lipase Vitamin B12 Folate Ur Specific [place] Vancomycin Trough Crossmatch 07/10/18 07/10/18 07/10/18 05:50 10:11 11:52 WBC RBC Hgb Hct MCHC RDW Plt Count Seg Neuts % (Manual) Lymphocytes % (Manual) Monocytes % (Manual) Seg Neutrophils # Man Lymphocytes # (Manual) Monocytes # (Manual) PT INR APTT Heparin Anti-Xa Level < 0.10 L POC ABG pH POC ABG pCO2 POC ABG pO2 Sodium Potassium Chloride Carbon Dioxide BUN Creatinine < 0.2 L Glucose 131 H POC Glucose 126 H Calcium 8.3 L Phosphorus TIBC Total Bilirubin Direct Bilirubin Alkaline Phosphatase C-Reactive Protein NT-Pro-B Natriuret Pep Total Protein 4.8 L Albumin 1.9 L Lipase Vitamin B12 Folate Ur Specific [place] Vancomycin Trough Crossmatch 07/10/18 07/10/18 07/10/18 17:17 18:41 23:24 WBC RBC Hgb Hct MCHC RDW Plt Count Seg Neuts % (Manual) Lymphocytes % (Manual) Monocytes % (Manual) Seg Neutrophils # Man Lymphocytes # (Manual) Monocytes # (Manual) PT INR APTT Heparin Anti-Xa Level POC ABG pH POC ABG pCO2 POC ABG pO2 Sodium Potassium Chloride Carbon Dioxide BUN Creatinine Glucose POC Glucose 155 H 134 H 175 H Calcium Phosphorus TIBC Total Bilirubin Direct Bilirubin Alkaline Phosphatase C-Reactive Protein NT-Pro-B Natriuret Pep Total Protein Albumin Lipase Vitamin B12 Folate Ur Specific [place] Vancomycin Trough Crossmatch 07/11/18 07/11/18 07/11/18 05:10 05:13 05:13 WBC 17.7 H RBC 3.19 L Hgb 9.4 L Hct 28.1 L MCHC RDW Plt Count 528 H Seg Neuts % (Manual) 71.0 H Lymphocytes % (Manual) 10.0 L Monocytes % (Manual) 9.0 H Seg Neutrophils # Man 12.6 H Lymphocytes # (Manual) Monocytes # (Manual) 1.6 H PT INR APTT Heparin Anti-Xa Level 0.28 L POC ABG pH POC ABG pCO2 POC ABG pO2 Sodium Potassium Chloride Carbon Dioxide BUN Creatinine Glucose POC Glucose 135 H Calcium Phosphorus TIBC Total Bilirubin Direct Bilirubin Alkaline Phosphatase C-Reactive Protein NT-Pro-B Natriuret Pep Total Protein Albumin Lipase Vitamin B12 Folate Ur Specific [place] Vancomycin Trough Crossmatch 07/11/18 05:13 WBC RBC Hgb Hct MCHC RDW Plt Count Seg Neuts % (Manual) Lymphocytes % (Manual) Monocytes % (Manual) Seg Neutrophils # Man Lymphocytes # (Manual) Monocytes # (Manual) PT INR APTT Heparin Anti-Xa Level POC ABG pH POC ABG pCO2 POC ABG pO2 Sodium Potassium Chloride Carbon Dioxide BUN Creatinine < 0.2 L Glucose 137 H POC Glucose Calcium Phosphorus TIBC Total Bilirubin Direct Bilirubin Alkaline Phosphatase 149 H C-Reactive Protein NT-Pro-B Natriuret Pep Total Protein 5.5 L Albumin 2.5 L Lipase Vitamin B12 Folate Ur Specific [place] Vancomycin Trough Crossmatch
[2018-07-11] MEDS: HABITROL TD SCH (10:00)
[2018-07-11] MEDS: PEPCID IV SCH ×2 (10:00→21:51)
[2018-07-11] MEDS: MAXIPIME/NS 2 GM/100 ML 2 GM/100 ML BAG IV SCH ×2 (10:00→21:51)
[2018-07-11] MEDS: SODIUM CHLORIDE FLUSH SYRINGE 10 ML IV SCH ×2 (10:00→22:00)
[2018-07-11] MEDS: DIFLUCAN 200 ML IV SCH (10:00)
--- NOTE | 2018-07-11 10:01 | Progress Note ---
Assessment and Plan 58 yo F s/p 1) Abdominal re-exploration and washout, cholecystectomy, primary closure of abdominal wall 07/10/18, POD 1 2) exploratory laparotomy, small bowel resection with primary anastamosis, right hemicolectomy with ileocolonic anastamosis, temporary closure of abdomen with abthera vac 07/07/18 - POD#5; 3) Exploratory laparotomy, small bowel resection, partial colon resection, temporary abdominal closure with abthera vac 07/04/18, POD7 ; and 4) Exploratory laparotomy, Ezequiel's procedure 06/24/18 Problem list: 1. 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 Respiratory failure 5. COPD Plan: 1. off vent 2. NPO 3. TPN 4. fent IV prn 5. consult speech therapy for swallow eval 6. NGT to LIWS 7. continue heparin gtt 8. incentive spirometry/pulm toilet 9. IV abx per ID 10. GI ppx 11. dc pizano in am 12. PT consult Ok to downgrade when cleared by pulm Subjective Date of service: 07/11/18 Narrative: Pt seen and examined. Extubated this am. c/o abdominal pain. No f/c, cp, sob. Objective Vital Signs - 12hr 07/10/18 07/10/18 07/10/18 22:00 22:15 22:30 Temperature Pulse Rate 117 H 116 H 113 H Pulse Rate [ Anterior Bilateral Throughout] Pulse Rate [ Anterior Throughout] Pulse Rate [ From Monitor] Respiratory 18 18 18 Rate Respiratory Rate [Anterior Bilateral Throughout] Respiratory Rate [Anterior Throughout] Blood Pressure 142/75 141/73 143/76 O2 Sat by Pulse 96 96 97 Oximetry 07/10/18 07/10/18 07/10/18 22:45 22:54 23:00 Temperature 98.6 F Pulse Rate 114 H 116 H Pulse Rate [ Anterior Bilateral Throughout] Pulse Rate [ Anterior Throughout] Pulse Rate [ From Monitor] Respiratory 18 18 Rate Respiratory Rate [Anterior Bilateral Throughout] Respiratory Rate [Anterior Throughout] Blood Pressure 135/75 136/79 O2 Sat by Pulse 97 97 Oximetry 07/10/18 07/10/18 07/10/18 23:15 23:16 23:30 Temperature Pulse Rate 112 H 112 H 120 H Pulse Rate [ Anterior Bilateral Throughout] Pulse Rate [ Anterior Throughout] Pulse Rate [ From Monitor] Respiratory 18 18 19 Rate Respiratory Rate [Anterior Bilateral Throughout] Respiratory Rate [Anterior Throughout] Blood Pressure 133/72 135/75 127/72 O2 Sat by Pulse 97 98 97 Oximetry 07/10/18 07/11/18 07/11/18 23:45 00:00 00:15 Temperature Pulse Rate 116 H 113 H 112 H Pulse Rate [ Anterior Bilateral Throughout] Pulse Rate [ Anterior Throughout] Pulse Rate [ 113 H From Monitor] Respiratory 18 18 18 Rate Respiratory Rate [Anterior Bilateral Throughout] Respiratory Rate [Anterior Throughout] Blood Pressure 135/77 132/74 123/79 O2 Sat by Pulse 98 99 99 Oximetry 07/11/18 07/11/18 07/11/18 00:17 00:30 00:45 Temperature Pulse Rate 113 H 112 H 112 H Pulse Rate [ Anterior Bilateral Throughout] Pulse Rate [ Anterior Throughout] Pulse Rate [ From Monitor] Respiratory 18 18 Rate Respiratory Rate [Anterior Bilateral Throughout] Respiratory Rate [Anterior Throughout] Blood Pressure 132/69 129/72 O2 Sat by Pulse 98 98 Oximetry 07/11/18 07/11/18 07/11/18 01:00 01:15 01:30 Temperature Pulse Rate 115 H 110 H 115 H Pulse Rate [ Anterior Bilateral Throughout] Pulse Rate [ Anterior Throughout] Pulse Rate [ From Monitor] Respiratory 18 18 17 Rate Respiratory Rate [Anterior Bilateral Throughout] Respiratory Rate [Anterior Throughout] Blood Pressure 135/71 127/73 142/73 O2 Sat by Pulse 97 98 97 Oximetry 07/11/18 07/11/18 07/11/18 01:45 02:00 02:15 Temperature Pulse Rate 113 H 111 H 113 H Pulse Rate [ Anterior Bilateral Throughout] Pulse Rate [ Anterior Throughout] Pulse Rate [ From Monitor] Respiratory 17 18 15 Rate Respiratory Rate [Anterior Bilateral Throughout] Respiratory Rate [Anterior Throughout] Blood Pressure 144/70 123/70 116/75 O2 Sat by Pulse 97 99 98 Oximetry 07/11/18 07/11/18 07/11/18 02:30 02:45 03:00 Temperature Pulse Rate 113 H 106 H 107 H Pulse Rate [ Anterior Bilateral Throughout] Pulse Rate [ Anterior Throughout] Pulse Rate [ From Monitor] Respiratory 17 16 17 Rate Respiratory Rate [Anterior Bilateral Throughout] Respiratory Rate [Anterior Throughout] Blood Pressure 120/70 119/72 127/75 O2 Sat by Pulse 97 98 Oximetry 07/11/18 07/11/18 07/11/18 03:15 03:19 03:30 Temperature 98.5 F Pulse Rate 114 H 103 H Pulse Rate [ Anterior Bilateral Throughout] Pulse Rate [ Anterior Throughout] Pulse Rate [ From Monitor] Respiratory 17 17 Rate Respiratory Rate [Anterior Bilateral Throughout] Respiratory Rate [Anterior Throughout] Blood Pressure 125/66 126/71 O2 Sat by Pulse 97 99 Oximetry 07/11/18 07/11/18 07/11/18 03:45 03:56 04:00 Temperature Pulse Rate 105 H 121 H 121 H Pulse Rate [ Anterior Bilateral Throughout] Pulse Rate [ Anterior Throughout] Pulse Rate [ 118 H From Monitor] Respiratory 16 18 Rate Respiratory Rate [Anterior Bilateral Throughout] Respiratory Rate [Anterior Throughout] Blood Pressure 127/67 127/67 141/76 O2 Sat by Pulse 97 99 98 Oximetry 07/11/18 07/11/18 07/11/18 04:15 04:30 04:45 Temperature Pulse Rate 117 H 116 H 116 H Pulse Rate [ Anterior Bilateral Throughout] Pulse Rate [ Anterior Throughout] Pulse Rate [ From Monitor] Respiratory 18 16 17 Rate Respiratory Rate [Anterior Bilateral Throughout] Respiratory Rate [Anterior Throughout] Blood Pressure 137/77 141/84 135/75 O2 Sat by Pulse 98 99 100 Oximetry 07/11/18 07/11/18 07/11/18 05:00 05:15 05:30 Temperature Pulse Rate 114 H 113 H 109 H Pulse Rate [ Anterior Bilateral Throughout] Pulse Rate [ Anterior Throughout] Pulse Rate [ From Monitor] Respiratory 18 17 18 Rate Respiratory Rate [Anterior Bilateral Throughout] Respiratory Rate [Anterior Throughout] Blood Pressure 142/75 136/78 133/76 O2 Sat by Pulse 97 97 97 Oximetry 07/11/18 07/11/18 07/11/18 05:45 06:00 06:15 Temperature Pulse Rate 113 H 109 H 110 H Pulse Rate [ Anterior Bilateral Throughout] Pulse Rate [ Anterior Throughout] Pulse Rate [ From Monitor] Respiratory 17 18 18 Rate Respiratory Rate [Anterior Bilateral Throughout] Respiratory Rate [Anterior Throughout] Blood Pressure 135/76 126/74 129/79 O2 Sat by Pulse 98 96 97 Oximetry 07/11/18 07/11/18 07/11/18 06:30 06:45 07:00 Temperature Pulse Rate 107 H 110 H 111 H Pulse Rate [ Anterior Bilateral Throughout] Pulse Rate [ Anterior Throughout] Pulse Rate [ From Monitor] Respiratory 18 18 18 Rate Respiratory Rate [Anterior Bilateral Throughout] Respiratory Rate [Anterior Throughout] Blood Pressure 121/80 141/77 136/79 O2 Sat by Pulse 99 96 96 Oximetry 07/11/18 07/11/18 07/11/18 07:15 07:30 07:45 Temperature Pulse Rate 110 H 111 H 111 H Pulse Rate [ Anterior Bilateral Throughout] Pulse Rate [ Anterior Throughout] Pulse Rate [ From Monitor] Respiratory 18 17 18 Rate Respiratory Rate [Anterior Bilateral Throughout] Respiratory Rate [Anterior Throughout] Blood Pressure 134/75 137/74 132/75 O2 Sat by Pulse 96 97 97 Oximetry 07/11/18 07/11/18 07/11/18 08:00 08:15 08:20 Temperature 98.8 F Pulse Rate 109 H 110 H 114 H Pulse Rate [ Anterior Bilateral Throughout] Pulse Rate [ Anterior Throughout] Pulse Rate [ 110 H From Monitor] Respiratory 16 19 Rate Respiratory Rate [Anterior Bilateral Throughout] Respiratory Rate [Anterior Throughout] Blood Pressure 129/76 135/74 93/76 O2 Sat by Pulse 96 97 98 Oximetry 07/11/18 07/11/18 08:44 08:45 Temperature Pulse Rate 117 H Pulse Rate [ 118 H Anterior Bilateral Throughout] Pulse Rate [ 118 H Anterior Throughout] Pulse Rate [ From Monitor] Respiratory 15 Rate Respiratory 15 Rate [Anterior Bilateral Throughout] Respiratory 15 Rate [Anterior Throughout] Blood Pressure 103/82 O2 Sat by Pulse 98 Oximetry - General physical appearance Narrative Exam: Gen: AAOx3. NAD ENT: NGT with gastric drainage CV: S1, S2+, tachy Resp: even and unlabored Abd: soft, ND. Dressing c/d/i. Ostomy pink without stool or air in bag Ext; no c/c/e - Labs 07/11/18 05:13 07/11/18 05:13 Diabetes panel 07/11/18 Range/Units 05:13 Sodium 144 (137-145) mmol/L Potassium 3.6 (3.6-5.0) mmol/L Chloride 104.1 (98-107) mmol/L Carbon Dioxide 30 (22-30) mmol/L BUN 12 (7-17) mg/dL Creatinine < 0.2 L (0.7-1.2) mg/dL Glucose 137 H (65-100) mg/dL Calcium 8.7 (8.4-10.2) mg/dL AST 26 (5-40) units/L ALT 25 (7-56) units/L Alkaline Phosphatase 149 H (35-129) units/L Total Protein 5.5 L (6.3-8.2) g/dL Albumin 2.5 L (3.9-5) g/dL Calcium panel 07/11/18 Range/Units 05:13 Calcium 8.7 (8.4-10.2) mg/dL Phosphorus 3.20 (2.5-4.5) mg/dL Albumin 2.5 L (3.9-5) g/dL Pituitary panel 07/11/18 Range/Units 05:13 Sodium 144 (137-145) mmol/L Potassium 3.6 (3.6-5.0) mmol/L Chloride 104.1 (98-107) mmol/L Carbon Dioxide 30 (22-30) mmol/L BUN 12 (7-17) mg/dL Creatinine < 0.2 L (0.7-1.2) mg/dL Glucose 137 H (65-100) mg/dL Calcium 8.7 (8.4-10.2) mg/dL Adrenal panel 07/11/18 Range/Units 05:13 Sodium 144 (137-145) mmol/L Potassium 3.6 (3.6-5.0) mmol/L Chloride 104.1 (98-107) mmol/L Carbon Dioxide 30 (22-30) mmol/L BUN 12 (7-17) mg/dL Creatinine < 0.2 L (0.7-1.2) mg/dL Glucose 137 H (65-100) mg/dL Calcium 8.7 (8.4-10.2) mg/dL Total Bilirubin 0.40 (0.1-1.2) mg/dL AST 26 (5-40) units/L ALT 25 (7-56) units/L Alkaline Phosphatase 149 H (35-129) units/L Total Protein 5.5 L (6.3-8.2) g/dL Albumin 2.5 L (3.9-5) g/dL
--- NOTE | 2018-07-11 10:33 | Progress Note ---
Assessment and Plan Assessment and plan: --Acute hypoxic respiratory failure;Requiring intubation on ventilatory support, Extubated today, continue oxygen titrate O2 sats to more than 90%, nebulizers Pulmonary following --Acute exacerbation of COPD; continue current management --Acute Mesenteric ischemia; with ischemic bowel/gangrene bowel Sigmoid diverticulitis with perforation of distal sigmoid colon Patient underwent multiple surgical procedures as mentioned below/management per surgery 1) Abdominal re-exploration and washout, cholecystectomy, primary closure of abdominal wall 07/10/18, POD 1 2) exploratory laparotomy, small bowel resection with primary anastamosis, right hemicolectomy with ileocolonic anastamosis,temporary closure of abdomen with abthera vac 07/07/18 - POD#5; 3) Exploratory laparotomy, small bowel resection, partial colon resection, temporary abdominal closure with abthera vac 07/04/18, POD7 ; and 4) Exploratory laparotomy, Ezequiel's procedure 06/24/18 --Acute SMA/SMV/distal aortic Thrombosis; vascular following, on heparin drip Patient may need lifelong anticoagulation per vascular --Sepsis; continue cefepime and fluconazole and Flagyl, ID following --Leukocytosis; secondary to sepsis, trending down --Severe malnutrition; nutrition consult, TPN --Speech and swallow evaluation, diet as tolerated when patient is surgically ready for oral nutrition --Ongoing tobacco use; smoking cessation, nicotine patch as needed --DVT prophylaxis; the patient is already on heparin drip --Physical therapy occupational therapy --Discharge planning. Case management and patient is stable Consults and recommendations noted and appreciated Monitor closely and adjust the management as needed Transfer to medical/telemetry/surgical floor in the next 24 hours Plan of care reviewed with the patient , her nurse and case management Critical care time 35 minutes h History Interval history: Patient seen and examined this morning in ICU medical records reviewed She was extubated this morning. Feels better no new complaints Vital signs noted Hospitalist Physical - Constitutional Vitals: Temp Pulse Resp BP Pulse Ox 98.8 F 118 H 15 103/82 98 07/11/18 08:00 07/11/18 08:45 07/11/18 08:45 07/11/18 08:44 07/11/18 08:44 General appearance: Present: no acute distress, well-nourished - EENT Eyes: Present: PERRL, EOM intact - Neck Neck: Present: supple, normal ROM - Respiratory Respiratory effort: normal Respiratory: bilateral: diminished, negative: rales, rhonchi, wheezing - Cardiovascular Rhythm: regular Heart Sounds: Present: S1 & S2 - Extremities Extremities: no ischemia, No edema - Abdominal General gastrointestinal: soft, non-tender, other (surgical dressing in place) - Integumentary Integumentary: Present: clear, warm - Psychiatric Psychiatric: appropriate mood/affect, cooperative - Neurologic Neurologic: moves all extremities Results - Labs CBC & Chem 7: 07/11/18 05:13 07/11/18 05:13 Labs: Laboratory Last Values WBC 17.7 K/mm3 (4.5-11.0) H 07/11/18 05:13 RBC 3.19 M/mm3 (3.65-5.03) L 07/11/18 05:13 Hgb 9.4 gm/dl (10.1-14.3) L 07/11/18 05:13 Hct 28.1 % (30.3-42.9) L 07/11/18 05:13 MCV 88 fl (79-97) 07/11/18 05:13 MCH 30 pg (28-32) 07/11/18 05:13 MCHC 34 % (30-34) 07/11/18 05:13 RDW 15.2 % (13.2-15.2) 07/11/18 05:13 Plt Count 528 K/mm3 (140-440) H 07/11/18 05:13 Add Manual Diff Complete 07/11/18 05:13 Total Counted 100 07/11/18 05:13 Seg Neutrophils % Jewel Sorter 06/29/18 00:57 Seg Neuts % (Manual) 71.0 % (40.0-70.0) H 07/11/18 05:13 10.0 % 07/11/18 05:13 10.0 % (13.4-35.0) L 07/11/18 05:13 Reactive Lymphs % (Man) 0 % 07/11/18 05:13 9.0 % (0.0-7.3) H 07/11/18 05:13 0 % (0.0-4.3) 07/11/18 05:13 0 % (0.0-1.8) 07/11/18 05:13 0 % 07/11/18 05:13 0 % 07/11/18 05:13 0 % 07/11/18 05:13 0 % 07/11/18 05:13 Nucleated RBC % Not Reportable 07/11/18 05:13 Seg Neutrophils # Man 12.6 K/mm3 (1.8-7.7) H 07/11/18 05:13 Band Neutrophils # 1.8 K/mm3 07/11/18 05:13 1.8 K/mm3 (1.2-5.4) 07/11/18 05:13 Abs React Lymphs (Man) 0.0 K/mm3 07/11/18 05:13 1.6 K/mm3 (0.0-0.8) H 07/11/18 05:13 0.0 K/mm3 (0.0-0.4) 07/11/18 05:13 0.0 K/mm3 (0.0-0.1) 07/11/18 05:13 0.0 K/mm3 07/11/18 05:13 0.0 K/mm3 07/11/18 05:13 0.0 K/mm3 07/11/18 05:13 Blast Cells # 0.0 K/mm3 07/11/18 05:13 WBC Morphology Not Reportable 07/11/18 05:13 Hypersegmented Neuts Not Reportable 07/11/18 05:13 Hyposegmented Neuts Not Reportable 07/11/18 05:13 Hypogranular Neuts Not Reportable 07/11/18 05:13 Not Reportable 07/11/18 05:13 Not Reportable 07/11/18 05:13 Not Reportable 07/11/18 05:13 Not Reportable 07/11/18 05:13 Not Reportable 07/11/18 05:13 Not Reportable 07/11/18 05:13 Appears increased 07/11/18 05:13 Not Reportable 07/11/18 05:13 Plt Clumps, EDTA Not Reportable 07/11/18 05:13 Not Reportable 07/11/18 05:13 Not Reportable 07/11/18 05:13 Not Reportable 07/11/18 05:13 Plt Morphology Comment Not Reportable 07/11/18 05:13 RBC Morphology Not Reportable 07/11/18 05:13 Dimorphic RBCs Not Reportable 07/11/18 05:13 1+ 07/11/18 05:13 Not Reportable 07/11/18 05:13 Not Reportable 07/11/18 05:13 1+ 07/11/18 05:13 Not Reportable 07/11/18 05:13 Not Reportable 07/11/18 05:13 Not Reportable 07/11/18 05:13 Not Reportable 07/11/18 05:13 Not Reportable 07/11/18 05:13 Rare 07/11/18 05:13 Not Reportable 07/11/18 05:13 Not Reportable 07/11/18 05:13 Few 07/11/18 05:13 Not Reportable 07/11/18 05:13 Not Reportable 07/11/18 05:13 Not Reportable 07/11/18 05:13 Not Reportable 07/11/18 05:13 Not Reportable 07/11/18 05:13 Not Reportable 07/11/18 05:13 Not Reportable 07/11/18 05:13 Acanthocytes (Spur) Not Reportable 07/11/18 05:13 Rouleaux Not Reportable 07/11/18 05:13 Not Reportable 07/11/18 05:13 Not Reportable 07/11/18 05:13 Not Reportable 07/11/18 05:13 Not Reportable 07/11/18 05:13 Hem Pathologist Commnt No 07/11/18 05:13 PT 15.2 Sec. (12.2-14.9) H 07/07/18 15:20 INR 1.13 (0.87-1.13) 07/07/18 15:20 APTT 42.2 Sec. (24.2-36.6) H 07/07/18 15:20 Heparin Anti-Xa Level 0.28 U.I./ml (0.3-0.7) L 07/11/18 05:13 POC ABG pH 7.431 (7.35-7.45) 07/10/18 04:32 POC ABG pCO2 48.5 (35-45) H 07/10/18 04:32 POC ABG pO2 104 (80-105) 07/10/18 04:32 POC ABG HCO3 32.2 (22-26 mml/L) 07/10/18 04:32 POC ABG Total CO2 34 (23-27mmol/L) 07/10/18 04:32 POC ABG O2 Sat 98 07/10/18 04:32 POC ABG Base Excess 8 ((-2) - (+3)mmol/L) 07/10/18 04:32 28 % 07/10/18 04:32 Sodium 144 mmol/L (137-145) 07/11/18 05:13 Potassium 3.6 mmol/L (3.6-5.0) 07/11/18 05:13 Chloride 104.1 mmol/L (98-107) 07/11/18 05:13 Carbon Dioxide 30 mmol/L (22-30) 07/11/18 05:13 14 mmol/L 07/11/18 05:13 BUN 12 mg/dL (7-17) 07/11/18 05:13 < 0.2 mg/dL (0.7-1.2) L 07/11/18 05:13 Estimated GFR > 60 ml/min 07/11/18 05:13 60 % 07/11/18 05:13 Glucose 137 mg/dL (65-100) H 07/11/18 05:13 POC Glucose 135 (70-105) H 07/11/18 05:10 Lactic Acid 1.40 mmol/L (0.7-2.0) 07/04/18 21:11 Calcium 8.7 mg/dL (8.4-10.2) 07/11/18 05:13 Phosphorus 3.20 mg/dL (2.5-4.5) 07/11/18 05:13 Magnesium 2.10 mg/dL (1.7-2.3) 07/11/18 05:13 Iron 40 ug/dL (37-170) 07/07/18 11:50 TIBC 94 mcg/dL (250-450) L 07/07/18 11:50 377.8 ng/mL (13.0-400.0) 07/07/18 11:50 0.40 mg/dL (0.1-1.2) 07/11/18 05:13 < 0.2 mg/dL (0-0.2) 07/11/18 05:13 0.2 mg/dL 07/11/18 05:13 AST 26 units/L (5-40) 07/11/18 05:13 ALT 25 units/L (7-56) 07/11/18 05:13 149 units/L (35-129) H 07/11/18 05:13 13.20 mg/dL (0.00-1.30) H 07/03/18 11:07 NT-Pro-B Natriuret Pep 1572 pg/mL (0-900) H 06/28/18 09:56 5.5 g/dL (6.3-8.2) L 07/11/18 05:13 2.5 g/dL (3.9-5) L 07/11/18 05:13 0.8 % 07/11/18 05:13 Triglycerides 127 mg/dL (2-149) 07/07/18 02:14 8 units/L (13-60) L 06/24/18 11:19 Vitamin B12 924.8 pg/mL (211-911) H 07/07/18 11:50 4.92 ng/mL (7.3-26.0) L 07/07/18 11:50 Na (Yellow) 07/03/18 Unknown Hazy (Clear) 07/03/18 Unknown 6.0 (5.0-7.0) 07/03/18 Unknown Ur Specific Gordon 1.023 (1.003-1.030) 07/03/18 Unknown <15 mg/dl mg/dL (Negative) 07/03/18 Unknown Neg mg/dL (Negative) 07/03/18 Unknown Neg mg/dL (Negative) 07/03/18 Unknown Sm (Negative) 07/03/18 Unknown Neg (Negative) 07/03/18 Unknown Neg (Negative) 07/03/18 Unknown < 2.0 mg/dL (<2.0) 07/03/18 Unknown Ur Leukocyte Esterase Neg (Negative) 07/03/18 Unknown 1.0 /HPF (0.0-6.0) 07/03/18 Unknown 3.0 /HPF (0.0-6.0) 07/03/18 Unknown U Epithel Cells (Auto) 7.0 /HPF (0-13.0) 07/03/18 Unknown 1+ /HPF (Negative) 06/24/18 13:00 Few /HPF 07/03/18 Unknown Vancomycin Trough 38.9 ug/mL (5.0-20.0) H 07/05/18 10:57 Blood Type O POSITIVE 07/04/18 17:54 Antibody Screen TNR 07/04/18 17:54 FADY Antibody Screen Negative 07/04/18 17:54 Crossmatch See Detail 07/04/18 17:54 Crossmatch See Detail 07/04/18 17:54 Active Medications - Current Medications Current Medications: Generic Name Dose Route Start Last Admin Trade Name Freq PRN Reason Stop Dose Admin Albuterol 2.5 mg 07/02/18 07:44 Proventil IH Q4HRT PRN Shortness Of Breath Albuterol/Ipratropium 1 ampul 07/02/18 14:00 07/11/18 08:29 Duoneb *Not For Prn Use* IH 1 ampul TIDRT MAURICIO Administration Budesonide 0.5 mg 07/02/18 20:00 07/11/18 08:29 Pulmicort IH 0.5 mg Q12HRT MAURICIO Administration Famotidine 20 mg 07/11/18 10:00 07/11/18 10:00 Pepcid IV 20 mg BID MAURICIO Administration Fentanyl 25 mcg 06/30/18 14:19 07/10/18 18:30 Sublimaze IV 25 mcg Q2H PRN Administration Pain, Moderate (4-6) Hydrophilic Ointment 1 applic 07/04/18 18:23 Vaseline Lip Therapy TP Q2HR PRN Dry Lips Metronidazole 500 mg in 100 mls @ 100 mls/hr 06/24/18 22:00 07/11/18 06:55 Flagyl 500 Mg/100 Ml IV Infused Q8H MAURICIO Infusion Protocol Fluconazole 200 mls @ 100 mls/hr 06/26/18 14:00 07/11/18 10:00 Diflucan IV 100 mls/hr Q24HR MAURICIO Administration Protocol Cefepime HCl 2 gm in 100 mls @ 200 mls/hr 06/27/18 14:00 07/11/18 10:00 Maxipime/Ns 2 Gm/100 Ml IV 200 mls/hr Q12HR MAURICIO Administration Protocol Fentanyl Citrate 2,000 mcg in 100 mls @ 2.605 mls/hr 07/04/18 19:00 07/11/18 06:07 Fentanyl Drip Premix IV 3 mcg/kg/hr TITR MAURICIO 7.815 mls/hr Administration Protocol 1 MCG/KG/HR Propofol 1,000 mg in 100 mls @ 1.563 mls/hr 07/04/18 19:00 07/08/18 19:33 Diprivan 10 Mg/Ml IV 0 mcg/kg/min TITR MAURICIO 0 mls/hr Titration Protocol 5 MCG/KG/MIN Heparin Sodium/Sodium Chloride 25,000 unit in 500 mls @ 15 mls/hr 07/07/18 14:00 07/11/18 06:14 Heparin/ 0.45% Nacl-25,000 Unit/500 Ml IV 1,500 units/hr TITR MAURICIO 30 mls/hr Titration Protocol 750 UNITS/HR Amino Acids/Electrolytes/Dextrose 1,800 mls @ 75 mls/hr 07/10/18 20:00 21:04 Tpn Adult IV 07/11/18 19:59 75 mls/hr DAILY@2000 MAURICIO Administration Protocol Multi-Ingred Cream/Lotion/Oil/Oint 1 applic 07/04/18 18:23 Artificial Tears Ophth Oint OU Q4HR PRN Dry Eye(s) Naloxone HCl 0.1 mg 06/24/18 18:55 Narcan 0.4 Mg/1 Ml IV Q2MIN PRN Res Rate </= 8 or 02 SAT < 92% Nicotine 14 mg 06/25/18 10:00 07/11/18 10:00 Habitrol TD 14 mg QDAY MAURICIO Administration Ondansetron HCl 4 mg 06/24/18 14:00 06/29/18 04:00 Zofran IV 4 mg Q8H PRN Administration Nausea And Vomiting Sodium Chloride 10 ml 06/24/18 22:00 07/11/18 10:00 Sodium Chloride Flush Syringe 10 Ml IV 10 ml BID MAURICIO Administration Sodium Chloride 10 ml 06/24/18 14:00 07/07/18 16:07 Sodium Chloride Flush Syringe 10 Ml IV 10 ml PRN PRN Administration LINE FLUSH Sodium Chloride 5 ml 07/04/18 18:23 07/10/18 08:09 Nacl 0.9% 500 Ml IV 5 ml DIRECT PRN Administration [employer] Nutrition/Malnutrition Assess - Dietary Evaluation Nutrition/Malnutrition Findings: Nutrition Notes Start: 06/30/18 16:45 Freq: Status: Active Protocol: Document 07/10/18 12:52 LP (Rec: 07/10/18 12:58 LP [id number]) Nutrition Notes Initial or Follow up Reassessment Other Pertinent Diagnosis Perforated viscus s/p exp lap Current Diet CPN at 75ml/hr Labs/Tests Reviewed Pertinent Medications Reviewed Height 5 ft 3 in Weight 52.1 kg [place] Body Weight (kg) 52.27 BMI 20.3 Subjective/Other Information Day 5 CPN. Pt has dark green coming from OGT. Will have Sx today for closure. MD plans to possibly extubate tomorrow. Percent of energy/protein needs met: 66%/100% Burn Absent Trauma Absent #2 Nutrition Diagnosis Inadequate oral intake Diagnosis Progress(for reassessment Continues documentation) #1 Nutrition Diagnosis Increased nutrient needs ( specify in comment below) Diagnosis Progress(for reassessment Continues documentation) Is patient on ventilator? Yes Is Patient Ambulatory and/or Out of Bed No REE-([place]-confined to bed) 1289.088 Kcal/Kg value to use for calculation 33 Approximate Energy Requirements Using 1719 kcal/Kg Calculation Used for Recommendations Kcal/kg Additional Notes Pro needs 1.2-2/k-104g/ day Fluid needs 1ml/kcal Nutrition Intervention Change Diet Order: CPN Nutrition Support: CPN at 75 ml/hr: 117 mEq Na, 11.1% dextrose Osmolarity: 1421 Kcal 1,110 Protein (gm) 105 Carbohydrates (gm) 200 Fat (gm) 0 Fluid (mL) 1,800 Fiber (gm) 0 Goal #1 Meet at least 80% of kcal and protein needs as best as possible Anticipated Discharge Needs: home TPN Follow-Up By: 07/11/18 Additional Comments Labs in AM: BMP, Mg, Phos
--- NOTE | 2018-07-11 12:16 | Progress Note ---
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 I would recommend initiation of Coumadin. Will place orders as well as pharmacy consult so the patient may begin anticoagulation. Subjective Date of service: 07/11/18 Principal diagnosis: small bowel ischemiaperitonitis/penumonia Interval history: Patient has now been extubated and appears to be doing well. Objective - Constitutional Vitals: Vital Signs - 12hr 07/11/18 07/11/18 07/11/18 00:15 00:17 00:30 Temperature Pulse Rate 112 H 113 H 112 H Pulse Rate [ Anterior Bilateral Throughout] Pulse Rate [ Anterior Throughout] Pulse Rate [ From Monitor] Respiratory 18 18 Rate Respiratory Rate [Abdomen] Respiratory Rate [Anterior Bilateral Throughout] Respiratory Rate [Anterior Throughout] Blood Pressure 123/79 132/69 O2 Sat by Pulse 99 98 Oximetry 07/11/18 07/11/18 07/11/18 00:45 01:00 01:15 Temperature Pulse Rate 112 H 115 H 110 H Pulse Rate [ Anterior Bilateral Throughout] Pulse Rate [ Anterior Throughout] Pulse Rate [ From Monitor] Respiratory 18 18 18 Rate Respiratory Rate [Abdomen] Respiratory Rate [Anterior Bilateral Throughout] Respiratory Rate [Anterior Throughout] Blood Pressure 129/72 135/71 127/73 O2 Sat by Pulse 98 97 98 Oximetry 07/11/18 07/11/18 07/11/18 01:30 01:45 02:00 Temperature Pulse Rate 115 H 113 H 111 H Pulse Rate [ Anterior Bilateral Throughout] Pulse Rate [ Anterior Throughout] Pulse Rate [ From Monitor] Respiratory 17 17 18 Rate Respiratory Rate [Abdomen] Respiratory Rate [Anterior Bilateral Throughout] Respiratory Rate [Anterior Throughout] Blood Pressure 142/73 144/70 123/70 O2 Sat by Pulse 97 97 99 Oximetry 07/11/18 07/11/18 07/11/18 02:15 02:30 02:45 Temperature Pulse Rate 113 H 113 H 106 H Pulse Rate [ Anterior Bilateral Throughout] Pulse Rate [ Anterior Throughout] Pulse Rate [ From Monitor] Respiratory 15 17 16 Rate Respiratory Rate [Abdomen] Respiratory Rate [Anterior Bilateral Throughout] Respiratory Rate [Anterior Throughout] Blood Pressure 116/75 120/70 119/72 O2 Sat by Pulse 98 97 98 Oximetry 07/11/18 07/11/18 07/11/18 03:00 03:15 03:19 Temperature 98.5 F Pulse Rate 107 H 114 H Pulse Rate [ Anterior Bilateral Throughout] Pulse Rate [ Anterior Throughout] Pulse Rate [ From Monitor] Respiratory 17 17 Rate Respiratory Rate [Abdomen] Respiratory Rate [Anterior Bilateral Throughout] Respiratory Rate [Anterior Throughout] Blood Pressure 127/75 125/66 O2 Sat by Pulse 97 Oximetry 07/11/18 07/11/18 07/11/18 03:30 03:45 03:56 Temperature Pulse Rate 103 H 105 H 121 H Pulse Rate [ Anterior Bilateral Throughout] Pulse Rate [ Anterior Throughout] Pulse Rate [ From Monitor] Respiratory 17 16 Rate Respiratory Rate [Abdomen] Respiratory Rate [Anterior Bilateral Throughout] Respiratory Rate [Anterior Throughout] Blood Pressure 126/71 127/67 127/67 O2 Sat by Pulse 99 97 99 Oximetry 07/11/18 07/11/18 07/11/18 04:00 04:15 04:30 Temperature Pulse Rate 121 H 117 H 116 H Pulse Rate [ Anterior Bilateral Throughout] Pulse Rate [ Anterior Throughout] Pulse Rate [ 118 H From Monitor] Respiratory 18 18 16 Rate Respiratory Rate [Abdomen] Respiratory Rate [Anterior Bilateral Throughout] Respiratory Rate [Anterior Throughout] Blood Pressure 141/76 137/77 141/84 O2 Sat by Pulse 98 98 99 Oximetry 07/11/18 07/11/18 07/11/18 04:45 05:00 05:15 Temperature Pulse Rate 116 H 114 H 113 H Pulse Rate [ Anterior Bilateral Throughout] Pulse Rate [ Anterior Throughout] Pulse Rate [ From Monitor] Respiratory 17 18 17 Rate Respiratory Rate [Abdomen] Respiratory Rate [Anterior Bilateral Throughout] Respiratory Rate [Anterior Throughout] Blood Pressure 135/75 142/75 136/78 O2 Sat by Pulse 100 97 97 Oximetry 07/11/18 07/11/18 07/11/18 05:30 05:45 06:00 Temperature Pulse Rate 109 H 113 H 109 H Pulse Rate [ Anterior Bilateral Throughout] Pulse Rate [ Anterior Throughout] Pulse Rate [ From Monitor] Respiratory 18 17 18 Rate Respiratory Rate [Abdomen] Respiratory Rate [Anterior Bilateral Throughout] Respiratory Rate [Anterior Throughout] Blood Pressure 133/76 135/76 126/74 O2 Sat by Pulse 97 98 96 Oximetry 07/11/18 07/11/18 07/11/18 06:15 06:30 06:45 Temperature Pulse Rate 110 H 107 H 110 H Pulse Rate [ Anterior Bilateral Throughout] Pulse Rate [ Anterior Throughout] Pulse Rate [ From Monitor] Respiratory 18 18 18 Rate Respiratory Rate [Abdomen] Respiratory Rate [Anterior Bilateral Throughout] Respiratory Rate [Anterior Throughout] Blood Pressure 129/79 121/80 141/77 O2 Sat by Pulse 97 99 96 Oximetry 07/11/18 07/11/18 07/11/18 07:00 07:15 07:30 Temperature Pulse Rate 111 H 110 H 111 H Pulse Rate [ Anterior Bilateral Throughout] Pulse Rate [ Anterior Throughout] Pulse Rate [ From Monitor] Respiratory 18 18 17 Rate Respiratory Rate [Abdomen] Respiratory Rate [Anterior Bilateral Throughout] Respiratory Rate [Anterior Throughout] Blood Pressure 136/79 134/75 137/74 O2 Sat by Pulse 96 96 97 Oximetry 07/11/18 07/11/18 07/11/18 07:45 08:00 08:15 Temperature 98.8 F Pulse Rate 111 H 109 H 110 H Pulse Rate [ Anterior Bilateral Throughout] Pulse Rate [ Anterior Throughout] Pulse Rate [ 110 H From Monitor] Respiratory 18 16 19 Rate Respiratory Rate [Abdomen] Respiratory Rate [Anterior Bilateral Throughout] Respiratory Rate [Anterior Throughout] Blood Pressure 132/75 129/76 135/74 O2 Sat by Pulse 97 96 97 Oximetry 07/11/18 07/11/18 07/11/18 08:20 08:30 08:44 Temperature Pulse Rate 114 H 115 H 117 H Pulse Rate [ Anterior Bilateral Throughout] Pulse Rate [ Anterior Throughout] Pulse Rate [ From Monitor] Respiratory 17 15 Rate Respiratory Rate [Abdomen] Respiratory Rate [Anterior Bilateral Throughout] Respiratory Rate [Anterior Throughout] Blood Pressure 93/76 131/75 103/82 O2 Sat by Pulse 98 96 98 Oximetry 07/11/18 07/11/18 07/11/18 08:45 09:00 09:15 Temperature Pulse Rate 113 H 131 H 123 H Pulse Rate [ 118 H Anterior Bilateral Throughout] Pulse Rate [ 118 H Anterior Throughout] Pulse Rate [ From Monitor] Respiratory 17 21 17 Rate Respiratory Rate [Abdomen] Respiratory 15 Rate [Anterior Bilateral Throughout] Respiratory 15 Rate [Anterior Throughout] Blood Pressure 128/79 129/84 132/75 O2 Sat by Pulse 94 97 94 Oximetry 07/11/18 07/11/18 07/11/18 09:30 09:45 10:00 Temperature Pulse Rate 120 H 119 H 117 H Pulse Rate [ Anterior Bilateral Throughout] Pulse Rate [ Anterior Throughout] Pulse Rate [ From Monitor] Respiratory 22 20 23 Rate Respiratory 26 H Rate [Abdomen] Respiratory Rate [Anterior Bilateral Throughout] Respiratory Rate [Anterior Throughout] Blood Pressure 140/79 136/76 138/75 O2 Sat by Pulse 94 94 Oximetry 07/11/18 07/11/18 07/11/18 10:15 10:30 10:45 Temperature Pulse Rate 113 H 113 H 113 H Pulse Rate [ Anterior Bilateral Throughout] Pulse Rate [ Anterior Throughout] Pulse Rate [ From Monitor] Respiratory 23 24 22 Rate Respiratory Rate [Abdomen] Respiratory Rate [Anterior Bilateral Throughout] Respiratory Rate [Anterior Throughout] Blood Pressure 140/78 146/74 147/78 O2 Sat by Pulse 94 95 96 Oximetry 07/11/18 07/11/18 07/11/18 11:00 11:15 11:30 Temperature Pulse Rate 113 H 112 H 114 H Pulse Rate [ Anterior Bilateral Throughout] Pulse Rate [ Anterior Throughout] Pulse Rate [ From Monitor] Respiratory 27 H 24 18 Rate Respiratory Rate [Abdomen] Respiratory Rate [Anterior Bilateral Throughout] Respiratory Rate [Anterior Throughout] Blood Pressure 141/73 138/81 147/77 O2 Sat by Pulse 97 97 95 Oximetry 07/11/18 07/11/18 11:45 12:00 Temperature 98.8 F Pulse Rate 109 H 107 H Pulse Rate [ Anterior Bilateral Throughout] Pulse Rate [ Anterior Throughout] Pulse Rate [ 109 H From Monitor] Respiratory 26 H 22 Rate Respiratory Rate [Abdomen] Respiratory Rate [Anterior Bilateral Throughout] Respiratory Rate [Anterior Throughout] Blood Pressure 152/81 154/80 O2 Sat by Pulse 97 97 Oximetry General appearance: Present: no acute distress - EENT Eyes: PERRL, EOM intact ENT: hearing intact - Neck Neck: supple, normal ROM - Respiratory Respiratory effort: normal - Cardiovascular Rhythm: regular - Gastrointestinal General gastrointestinal: Present: other (post-surgical) - Genitourinary Female genitourinary: deferred - Integumentary Integumentary: clear - Psychiatric Psychiatric: appropriate mood/affect, cooperative - Labs CBC & Chem 7: 07/11/18 05:13 07/11/18 05:13 Labs: Abnormal lab results 07/10/18 07/10/18 07/10/18 Range/Units 11:52 17:17 18:41 WBC (4.5-11.0) K/mm3 RBC (3.65-5.03) M/mm3 Hgb (10.1-14.3) gm/dl Hct (30.3-42.9) % Plt Count (140-440) K/mm3 Seg Neuts % (Manual) (40.0-70.0) % Lymphocytes % (Manual) (13.4-35.0) % Monocytes % (Manual) (0.0-7.3) % Seg Neutrophils # Man (1.8-7.7) K/mm3 Monocytes # (Manual) (0.0-0.8) K/mm3 Heparin Anti-Xa Level (0.3-0.7) U.I./ml Creatinine (0.7-1.2) mg/dL Glucose (65-100) mg/dL POC Glucose 126 H 155 H 134 H (70-105) Alkaline Phosphatase (35-129) units/L Total Protein (6.3-8.2) g/dL Albumin (3.9-5) g/dL 07/10/18 07/11/18 07/11/18 Range/Units 23:24 05:10 05:13 WBC 17.7 H (4.5-11.0) K/mm3 RBC 3.19 L (3.65-5.03) M/mm3 Hgb 9.4 L (10.1-14.3) gm/dl Hct 28.1 L (30.3-42.9) % Plt Count 528 H (140-440) K/mm3 Seg Neuts % (Manual) 71.0 H (40.0-70.0) % Lymphocytes % (Manual) 10.0 L (13.4-35.0) % Monocytes % (Manual) 9.0 H (0.0-7.3) % Seg Neutrophils # Man 12.6 H (1.8-7.7) K/mm3 Monocytes # (Manual) 1.6 H (0.0-0.8) K/mm3 Heparin Anti-Xa Level (0.3-0.7) U.I./ml Creatinine (0.7-1.2) mg/dL Glucose (65-100) mg/dL POC Glucose 175 H 135 H (70-105) Alkaline Phosphatase (35-129) units/L Total Protein (6.3-8.2) g/dL Albumin (3.9-5) g/dL 07/11/18 07/11/18 07/11/18 Range/Units 05:13 05:13 11:33 WBC (4.5-11.0) K/mm3 RBC (3.65-5.03) M/mm3 Hgb (10.1-14.3) gm/dl Hct (30.3-42.9) % Plt Count (140-440) K/mm3 Seg Neuts % (Manual) (40.0-70.0) % Lymphocytes % (Manual) (13.4-35.0) % Monocytes % (Manual) (0.0-7.3) % Seg Neutrophils # Man (1.8-7.7) K/mm3 Monocytes # (Manual) (0.0-0.8) K/mm3 Heparin Anti-Xa Level 0.28 L (0.3-0.7) U.I./ml Creatinine < 0.2 L (0.7-1.2) mg/dL Glucose 137 H (65-100) mg/dL POC Glucose 153 H (70-105) Alkaline Phosphatase 149 H (35-129) units/L Total Protein 5.5 L (6.3-8.2) g/dL Albumin 2.5 L (3.9-5) g/dL Medications & Allergies - Medications Allergies/Adverse Reactions: Allergies No Known Allergies Allergy (Unverified 06/24/18 10:41) Home Medications: Home Medications Medication Instructions Recorded Confirmed Last Taken Type No Known Home Medications [No 06/27/18 06/27/18 Unknown History Reported Home Medications] Active Medications: Generic Name Dose Route Start Last Admin Trade Name Freq PRN Reason Stop Dose Admin Albuterol 2.5 mg 07/02/18 07:44 Proventil IH Q4HRT PRN Shortness Of Breath Albuterol/Ipratropium 1 ampul 07/02/18 14:00 07/11/18 08:29 Duoneb *Not For Prn Use* IH 1 ampul TIDRT MAURICIO Administration Budesonide 0.5 mg 07/02/18 20:00 07/11/18 08:29 Pulmicort IH 0.5 mg Q12HRT MAURICIO Administration Famotidine 20 mg 07/11/18 10:00 07/11/18 10:00 Pepcid IV 20 mg BID MAURICIO Administration Hydromorphone HCl 1 mg 07/11/18 11:11 Dilaudid IV Q4H PRN Pain , Severe (7-10) Hydrophilic Ointment 1 applic 07/04/18 18:23 Vaseline Lip Therapy TP Q2HR PRN Dry Lips Metronidazole 500 mg in 100 mls @ 100 mls/hr 06/24/18 22:00 07/11/18 06:55 Flagyl 500 Mg/100 Ml IV Infused Q8H [facility] Infusion Protocol Fluconazole 200 mls @ 100 mls/hr 06/26/18 14:00 07/11/18 12:00 Diflucan IV Infused Q24HR [facility] Infusion Protocol Cefepime HCl 2 gm in 100 mls @ 200 mls/hr 06/27/18 14:00 07/11/18 10:00 Maxipime/Ns 2 Gm/100 Ml IV 200 mls/hr Q12HR MAURICIO Administration Protocol Heparin Sodium/Sodium Chloride 25,000 unit in 500 mls @ 15 mls/hr 07/07/18 14:00 07/11/18 06:14 Heparin/ 0.45% Nacl-25,000 Unit/500 Ml IV 1,500 units/hr TITR MAURICIO 30 mls/hr Titration Protocol 750 UNITS/HR Amino Acids/Electrolytes/Dextrose 1,800 mls @ 75 mls/hr 07/10/18 20:00 07/10/18 21:04 Tpn Adult IV 07/11/18 19:59 75 mls/hr DAILY@1999 [facility] Administration Protocol Multi-Ingred Cream/Lotion/Oil/Oint 1 applic 07/04/18 18:23 Artificial Tears Ophth Oint OU Q4HR PRN Dry Eye(s) Naloxone HCl 0.1 mg 06/24/18 18:55 Narcan 0.4 Mg/1 Ml IV Q2MIN PRN Res Rate </= 8 or 02 SAT < 92% Nicotine 14 mg 06/25/18 10:00 07/11/18 10:00 Habitrol TD 14 mg QDAY MAURICIO Administration Ondansetron HCl 4 mg 06/24/18 14:00 06/29/18 04:00 Zofran IV 4 mg Q8H PRN Administration Nausea And Vomiting Sodium Chloride 10 ml 06/24/18 22:00 07/11/18 10:00 Sodium Chloride Flush Syringe 10 Ml IV 10 ml BID MAURICIO Administration Sodium Chloride 10 ml 06/24/18 14:00 07/07/18 16:07 Sodium Chloride Flush Syringe 10 Ml IV 10 ml PRN PRN Administration LINE FLUSH
[2018-07-11] MEDS: DILAUDID IV PRN ×3 (12:26→21:59)
--- NOTE | 2018-07-11 14:33 | Progress Note ---
Assessment and Plan Cultures: 06/26/2018 Blood culture no growth 07/03/2018 Blood culture no growth so far 07/04/2018 Sputum usual respiratory kait Assessment: 58 y/o female with history of HTN, tobacco dependence admitted on 06/24/2018 due to a week history of severe abdominal pain, constipation and nausea. 1) Severe sepsis: Resolved. Etiology most likely peritonitis from diverticular perforation and leukemoid reaction likely due to bowel ischemia. 2) Acute fecal peritonitis from diverticular perforation/abscess: went to OR on 06/24/2018 for Exploratory laparotomy, [facility] for perforated sigmoid diverticulitis with purulent peritonitis. 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 No pulsation in SMA, small bowel resection, partial colon resection, temporary abdominal closure with abthera vac on 07/04. Now again to OR on 07/07/2018, was found to have an 8 cm area of necrotic small bowel. S/P Abdominal re-exploration and washout, cholecystectomy, primary closure of abdominal wall 07/10/18. On empiric abx to cover GNR, anaerobes, Davina. 3) Bilateral pneumonia: ?aspiration v/s HAP on cefepime and vancomycin. CTA showed scattered infiltrates identified in both lungs, this is most prominent in the right lower lung, slight bilateral effusions, no evidence of pulmonary arterial emboli. 4) Acute hypoxemic resp failure: extubated, doing well. 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 s/p surgery as above. On anticoagulation. Recommendations: - continue Cefepime, fluconazole and Flagyl D18 today, tentative plan to stop abx 48 hours post closure (i.e. tomorrow) - monitor CBC MD [facility] C: [phone] O: [phone] F: [phone] Subjective Date of service: 07/11/18 Principal diagnosis: small bowel ischemiaperitonitis/penumonia Interval history: No fever. Got extubated. Doing well. On TPN. Denies any complaints. Objective - Exam Narrative Exam: Physical Exam: Constitutional: awake, no distress Head, Ears, Nose: Normocephalic, atraumatic. External ears, nose normal Eyes: Conjunctivae/corneas clear. No icterus. No ptosis. Neck: supple, no meningeal signs Oral: mucosa moist, no ulcers Cardiovascular: S1, S2 normal. Respiratory: Good air entry, clear to auscultation bilaterally GI: soft, colostomy +, dressing +, bowel sounds + Musculoskeletal: No pedal edema, no cyanosis. Skin: No rash or abscess Hem/Lymphatic: No palpable cervical or supraclavicular nodes. No lymphangitis Psych: no agitation Neurological: awake, alert, obeying commands - Constitutional Vitals: Vital Signs Temp Pulse Resp BP Pulse Ox 97.3 F L 108 H 24 157/73 96 07/11/18 12:00 07/11/18 14:00 07/11/18 14:00 07/11/18 14:00 07/11/18 14:00 Temperature -Last 24 Hours Temperature 97.3 F Temperature 98.8 F Temperature 98.8 F Temperature 98.5 F Temperature 98.6 F Temperature 97.9 F Temperature 97.1 F Temperature 97.5 F - Labs CBC & Chem 7: 07/11/18 05:13 07/11/18 05:13 Labs: Abnormal lab results 07/10/18 07/10/18 07/10/18 Range/Units 11:52 17:17 18:41 WBC (4.5-11.0) K/mm3 RBC (3.65-5.03) M/mm3 Hgb (10.1-14.3) gm/dl Hct (30.3-42.9) % Plt Count (140-440) K/mm3 Seg Neuts % (Manual) (40.0-70.0) % Lymphocytes % (Manual) (13.4-35.0) % Monocytes % (Manual) (0.0-7.3) % Seg Neutrophils # Man (1.8-7.7) K/mm3 Monocytes # (Manual) (0.0-0.8) K/mm3 Heparin Anti-Xa Level (0.3-0.7) U.I./ml Creatinine (0.7-1.2) mg/dL Glucose (65-100) mg/dL POC Glucose 126 H 155 H 134 H (70-105) Alkaline Phosphatase (35-129) units/L Total Protein (6.3-8.2) g/dL Albumin (3.9-5) g/dL 07/10/18 07/11/18 07/11/18 Range/Units 23:24 05:10 05:13 WBC 17.7 H (4.5-11.0) K/mm3 RBC 3.19 L (3.65-5.03) M/mm3 Hgb 9.4 L (10.1-14.3) gm/dl Hct 28.1 L (30.3-42.9) % Plt Count 528 H (140-440) K/mm3 Seg Neuts % (Manual) 71.0 H (40.0-70.0) % Lymphocytes % (Manual) 10.0 L (13.4-35.0) % Monocytes % (Manual) 9.0 H (0.0-7.3) % Seg Neutrophils # Man 12.6 H (1.8-7.7) K/mm3 Monocytes # (Manual) 1.6 H (0.0-0.8) K/mm3 Heparin Anti-Xa Level (0.3-0.7) U.I./ml Creatinine (0.7-1.2) mg/dL Glucose (65-100) mg/dL POC Glucose 175 H 135 H (70-105) Alkaline Phosphatase (35-129) units/L Total Protein (6.3-8.2) g/dL Albumin (3.9-5) g/dL 07/11/18 07/11/18 07/11/18 Range/Units 05:13 05:13 11:33 WBC (4.5-11.0) K/mm3 RBC (3.65-5.03) M/mm3 Hgb (10.1-14.3) gm/dl Hct (30.3-42.9) % Plt Count (140-440) K/mm3 Seg Neuts % (Manual) (40.0-70.0) % Lymphocytes % (Manual) (13.4-35.0) % Monocytes % (Manual) (0.0-7.3) % Seg Neutrophils # Man (1.8-7.7) K/mm3 Monocytes # (Manual) (0.0-0.8) K/mm3 Heparin Anti-Xa Level 0.28 L (0.3-0.7) U.I./ml Creatinine < 0.2 L (0.7-1.2) mg/dL Glucose 137 H (65-100) mg/dL POC Glucose 153 H (70-105) Alkaline Phosphatase 149 H (35-129) units/L Total Protein 5.5 L (6.3-8.2) g/dL Albumin 2.5 L (3.9-5) g/dL 07/11/18 Range/Units 12:10 WBC (4.5-11.0) K/mm3 RBC (3.65-5.03) M/mm3 Hgb (10.1-14.3) gm/dl Hct (30.3-42.9) % Plt Count (140-440) K/mm3 Seg Neuts % (Manual) (40.0-70.0) % Lymphocytes % (Manual) (13.4-35.0) % Monocytes % (Manual) (0.0-7.3) % Seg Neutrophils # Man (1.8-7.7) K/mm3 Monocytes # (Manual) (0.0-0.8) K/mm3 Heparin Anti-Xa Level < 0.10 L (0.3-0.7) U.I./ml Creatinine (0.7-1.2) mg/dL Glucose (65-100) mg/dL POC Glucose (70-105) Alkaline Phosphatase (35-129) units/L Total Protein (6.3-8.2) g/dL Albumin (3.9-5) g/dL - Imaging and cardiology Chest x-ray: report reviewed, image reviewed (stable bibasilar infiltrates)
[2018-07-11] MEDS: HEPARIN/ 0.45% NACL-25,000 UNIT/500 ML 25,000 UNIT/500 ML BAG IV SCH (15:45)
[2018-07-11] MEDS ORDERED: HEPARIN IV STA ×2 (15:46→16:00)
[2018-07-11] MEDS ORDERED: HEPARIN 10,000 UNITS/10 ML IV STA (15:57)
[2018-07-11 16:31] LABS: INR 1.12 (0.87-1.13)
[2018-07-11] MEDS ORDERED: COUMADIN PO SCH (18:00)
[2018-07-11] MEDS ORDERED: TPN ADULT 1,800 ML IV SCH (20:00)
[2018-07-12 05:15] LABS: Hematocrit 30.3 % (30.3-42.9); Hemoglobin 10.2 gm/dl (10.1-14.3)
[2018-07-12 05:26] LABS: INR 1.17 (0.87-1.13)
[2018-07-12] MEDS: FLAGYL 500 MG/100 ML 500 MG/100 ML BAG IV SCH (05:44)
[2018-07-12 05:45] LABS: Alanine Aminotransferase 32 units/L (7-56); Albumin 2.4 g/dL (3.9-5); BUN/Creatinine Ratio 70; Blood Urea Nitrogen 14 mg/dL (7-17); Calcium 8.6 mg/dL (8.4-10.2); Hemolysis Index 24
[2018-07-12 05:48] LABS: Bilirubin,Direct < 0.2 mg/dL (0-0.2)
[2018-07-12] MEDS: DILAUDID IV PRN ×4 (06:10→22:23)
[2018-07-12] MEDS: HEPARIN/ 0.45% NACL-25,000 UNIT/500 ML 25,000 UNIT/500 ML BAG IV SCH (07:18)
[2018-07-12] MEDS: PULMICORT IH SCH ×2 (07:53→20:29)
[2018-07-12] MEDS: DUONEB *Not for PRN Use IH SCH (07:53)
--- NOTE | 2018-07-12 08:47 | Progress Note ---
Assessment and Plan Coumadin initiation will begin following speech therapy/swallow evaluation. Patient will need to be anticoagulated for life. She will follow-up with us for her aortic thrombus and peripheral vascular disease. No interventions planned during this hospitalization. Subjective Date of service: 07/12/18 Principal diagnosis: small bowel ischemiaperitonitis/penumonia Interval history: Patient doing well following extensive abdominal surgeries. She has bilateral palpable dorsalis pedis pulses. The patient is anxious and wishes to get up out of bed and move around and begin reconditioning with physical therapy. Objective - Constitutional Vitals: Vital Signs - 12hr 07/11/18 07/11/18 07/11/18 20:50 21:00 21:15 Temperature Pulse Rate 113 H 120 H Pulse Rate [ 106 H Anterior Throughout] Pulse Rate [ From Monitor] Respiratory 31 H 28 H Rate Respiratory 22 Rate [Anterior Throughout] Blood Pressure 145/73 145/73 O2 Sat by Pulse 95 96 Oximetry 07/11/18 07/11/18 07/11/18 21:31 21:45 22:00 Temperature Pulse Rate 118 H 117 H 114 H Pulse Rate [ Anterior Throughout] Pulse Rate [ From Monitor] Respiratory 29 H 31 H 37 H Rate Respiratory Rate [Anterior Throughout] Blood Pressure 145/73 145/73 145/78 O2 Sat by Pulse 96 95 95 Oximetry 07/11/18 07/11/18 07/11/18 22:15 22:31 22:45 Temperature Pulse Rate 120 H 111 H 105 H Pulse Rate [ Anterior Throughout] Pulse Rate [ From Monitor] Respiratory 27 H 26 H 25 H Rate Respiratory Rate [Anterior Throughout] Blood Pressure 145/78 145/78 145/78 O2 Sat by Pulse 97 96 98 Oximetry 07/11/18 07/11/18 07/11/18 23:00 23:01 23:15 Temperature Pulse Rate 105 H 103 H 99 H Pulse Rate [ Anterior Throughout] Pulse Rate [ From Monitor] Respiratory 22 23 19 Rate Respiratory Rate [Anterior Throughout] Blood Pressure 134/71 134/71 134/71 O2 Sat by Pulse 98 99 100 Oximetry 07/11/18 07/11/18 07/11/18 23:31 23:45 23:56 Temperature 99.4 F Pulse Rate 99 H 102 H Pulse Rate [ Anterior Throughout] Pulse Rate [ From Monitor] Respiratory 21 29 H Rate Respiratory Rate [Anterior Throughout] Blood Pressure 134/71 134/71 O2 Sat by Pulse 99 98 Oximetry 07/12/18 07/12/18 07/12/18 00:00 00:15 00:31 Temperature Pulse Rate 108 H 107 H 107 H Pulse Rate [ Anterior Throughout] Pulse Rate [ From Monitor] Respiratory 26 H 22 27 H Rate Respiratory Rate [Anterior Throughout] Blood Pressure 149/72 149/72 149/72 O2 Sat by Pulse 96 97 98 Oximetry 07/12/18 07/12/18 07/12/18 00:45 01:01 01:15 Temperature Pulse Rate 108 H 113 H 106 H Pulse Rate [ Anterior Throughout] Pulse Rate [ From Monitor] Respiratory 25 H 29 H 27 H Rate Respiratory Rate [Anterior Throughout] Blood Pressure 149/72 123/90 123/90 O2 Sat by Pulse 98 93 98 Oximetry 07/12/18 07/12/18 07/12/18 01:31 01:45 02:00 Temperature Pulse Rate 109 H 110 H 110 H Pulse Rate [ Anterior Throughout] Pulse Rate [ From Monitor] Respiratory 27 H 27 H 27 H Rate Respiratory Rate [Anterior Throughout] Blood Pressure 123/90 123/90 148/69 O2 Sat by Pulse 97 97 96 Oximetry 07/12/18 07/12/18 07/12/18 02:15 02:31 02:45 Temperature Pulse Rate 110 H 110 H 111 H Pulse Rate [ Anterior Throughout] Pulse Rate [ From Monitor] Respiratory 25 H 30 H 29 H Rate Respiratory Rate [Anterior Throughout] Blood Pressure 148/69 148/69 148/69 O2 Sat by Pulse 99 98 98 Oximetry 07/12/18 07/12/18 07/12/18 03:00 03:15 03:31 Temperature Pulse Rate 106 H 105 H 108 H Pulse Rate [ Anterior Throughout] Pulse Rate [ From Monitor] Respiratory 31 H 35 H 31 H Rate Respiratory Rate [Anterior Throughout] Blood Pressure 140/77 148/69 148/69 O2 Sat by Pulse 99 98 99 Oximetry 07/12/18 07/12/18 07/12/18 03:45 04:00 04:15 Temperature 98.7 F Pulse Rate 107 H 100 H 106 H Pulse Rate [ Anterior Throughout] Pulse Rate [ 108 H From Monitor] Respiratory 29 H 19 30 H Rate Respiratory Rate [Anterior Throughout] Blood Pressure 148/69 143/86 143/86 O2 Sat by Pulse 97 96 Oximetry 07/12/18 07/12/18 07/12/18 04:30 04:45 05:00 Temperature Pulse Rate 108 H 111 H 107 H Pulse Rate [ Anterior Throughout] Pulse Rate [ From Monitor] Respiratory 30 H 31 H 29 H Rate Respiratory Rate [Anterior Throughout] Blood Pressure 143/86 143/86 143/84 O2 Sat by Pulse 96 96 94 Oximetry 07/12/18 07/12/18 07/12/18 05:15 05:31 05:45 Temperature Pulse Rate 104 H 106 H 110 H Pulse Rate [ Anterior Throughout] Pulse Rate [ From Monitor] Respiratory 31 H 28 H 31 H Rate Respiratory Rate [Anterior Throughout] Blood Pressure 143/84 143/84 143/84 O2 Sat by Pulse 96 98 94 Oximetry 07/12/18 07/12/18 07/12/18 06:00 07:53 07:55 Temperature Pulse Rate 114 H Pulse Rate [ 115 H Anterior Throughout] Pulse Rate [ From Monitor] Respiratory 35 H Rate Respiratory 28 H Rate [Anterior Throughout] Blood Pressure 140/81 O2 Sat by Pulse 89 95 Oximetry 07/12/18 07:59 Temperature 98.2 F Pulse Rate Pulse Rate [ Anterior Throughout] Pulse Rate [ From Monitor] Respiratory Rate Respiratory Rate [Anterior Throughout] Blood Pressure O2 Sat by Pulse Oximetry General appearance: Present: no acute distress - EENT Eyes: EOM intact ENT: hearing intact - Neck Neck: supple, normal ROM - Respiratory Respiratory effort: normal - Breasts Breasts: deferred Extremities: no ischemia - Gastrointestinal General gastrointestinal: Present: deferred Rectal Exam: deferred - Genitourinary Female genitourinary: deferred - Psychiatric Psychiatric: appropriate mood/affect, cooperative - Labs CBC & Chem 7: 07/12/18 04:16 07/12/18 04:16 Labs: Abnormal lab results 07/11/18 07/11/18 07/11/18 Range/Units 11:33 12:10 16:00 Plt Count (140-440) K/mm3 PT 15.1 H (12.2-14.9) Sec. INR (0.87-1.13) Heparin Anti-Xa Level < 0.10 L (0.3-0.7) U.I./ml Potassium (3.6-5.0) mmol/L Creatinine (0.7-1.2) mg/dL Glucose (65-100) mg/dL POC Glucose 153 H (70-105) Alkaline Phosphatase (35-129) units/L Total Protein (6.3-8.2) g/dL Albumin (3.9-5) g/dL 07/11/18 07/11/18 07/12/18 Range/Units 18:12 23:45 04:16 Plt Count 533 H (140-440) K/mm3 PT (12.2-14.9) Sec. INR (0.87-1.13) Heparin Anti-Xa Level (0.3-0.7) U.I./ml Potassium (3.6-5.0) mmol/L Creatinine (0.7-1.2) mg/dL Glucose (65-100) mg/dL POC Glucose 146 H 149 H (70-105) Alkaline Phosphatase (35-129) units/L Total Protein (6.3-8.2) g/dL Albumin (3.9-5) g/dL 07/12/18 07/12/18 07/12/18 Range/Units 04:16 04:16 05:19 Plt Count (140-440) K/mm3 PT 15.6 H (12.2-14.9) Sec. INR 1.17 H (0.87-1.13) Heparin Anti-Xa Level (0.3-0.7) U.I./ml Potassium 3.2 L (3.6-5.0) mmol/L Creatinine < 0.2 L (0.7-1.2) mg/dL Glucose 148 H (65-100) mg/dL POC Glucose 151 H (70-105) Alkaline Phosphatase 168 H (35-129) units/L Total Protein 6.1 L (6.3-8.2) g/dL Albumin 2.4 L (3.9-5) g/dL Medications & Allergies - Medications Allergies/Adverse Reactions: Allergies No Known Allergies Allergy (Unverified 06/24/18 10:41) Home Medications: Home Medications Medication Instructions Recorded Confirmed Last Taken Type No Known Home Medications [No 06/27/18 06/27/18 Unknown History Reported Home Medications] Active Medications: Generic Name Dose Route Start Last Admin Trade Name Freq PRN Reason Stop Dose Admin Albuterol 2.5 mg 07/02/18 07:44 Proventil IH Q4HRT PRN Shortness Of Breath Albuterol/Ipratropium 1 ampul 07/02/18 14:00 07/12/18 07:53 Duoneb *Not For Prn Use* IH 1 ampul TIDRT [facility] Administration Budesonide 0.5 mg 07/02/18 20:00 07/12/18 07:53 Pulmicort IH 0.5 mg Q12HRT [facility] Administration Famotidine 20 mg 07/11/18 10:00 07/11/18 21:51 Pepcid IV 20 mg BID [facility] Administration Hydromorphone HCl 1 mg 07/11/18 11:11 07/12/18 06:10 Dilaudid IV 1 mg Q4H PRN Administration Pain , Severe (7-10) Hydrophilic Ointment 1 applic 07/04/18 18:23 Vaseline Lip Therapy TP Q2HR PRN Dry Lips Metronidazole 500 mg in 100 mls @ 100 mls/hr 06/24/18 22:00 07/12/18 05:44 Flagyl 500 Mg/100 Ml IV 100 mls/hr Q8H [facility] Administration Protocol Fluconazole 200 mls @ 100 mls/hr 06/26/18 14:00 07/11/18 12:00 Diflucan IV Infused Q24HR [facility] Infusion Protocol Cefepime HCl 2 gm in 100 mls @ 200 mls/hr 06/27/18 14:00 07/11/18 21:51 Maxipime/Ns 2 Gm/100 Ml IV 200 mls/hr Q12HR [facility] Administration Protocol Heparin Sodium/Sodium Chloride 25,000 unit in 500 mls @ 15 mls/hr 07/07/18 14:00 07/12/18 07:18 Heparin/ 0.45% Nacl-25,000 Unit/500 Ml IV 1,650 units/hr TITR [facility] 33 mls/hr Administration Protocol 750 UNITS/HR Amino Acids/Electrolytes/Dextrose 1,800 mls @ 75 mls/hr 07/11/18 20:00 07/11/18 21:53 Tpn Adult IV 07/12/18 19:59 75 mls/hr DAILY@2000 [facility] Administration Protocol Potassium Chloride 20 meq in 100 mls @ 100 mls/hr 07/12/18 08:30 Kcl 20meq/100ml IV 07/12/18 10:29 Q1H [facility] Multi-Ingred Cream/Lotion/Oil/Oint 1 applic 07/04/18 18:23 Artificial Tears Ophth Oint OU Q4HR PRN Dry Eye(s) Naloxone HCl 0.1 mg 06/24/18 18:55 Narcan 0.4 Mg/1 Ml IV Q2MIN PRN Res Rate </= 8 or 02 SAT < 92% Nicotine 14 mg 06/25/18 10:00 07/11/18 10:00 Habitrol TD 14 mg QDAY [facility] Administration Ondansetron HCl 4 mg 06/24/18 14:00 06/29/18 04:00 Zofran IV 4 mg Q8H PRN Administration Nausea And Vomiting Sodium Chloride 10 ml 06/24/18 22:00 07/11/18 22:00 Sodium Chloride Flush Syringe 10 Ml IV 10 ml BID [facility] Administration Sodium Chloride 10 ml 06/24/18 14:00 07/07/18 16:07 Sodium Chloride Flush Syringe 10 Ml IV 10 ml PRN PRN Administration LINE FLUSH
--- NOTE | 2018-07-12 08:59 | Progress Note ---
Assessment and Plan Assessment and plan: --Hypokalemia; replace per protocol with KCl Follow electrolytes --Acute Mesenteric ischemia; with ischemic bowel/gangrene bowel Sigmoid diverticulitis with perforation of distal sigmoid colon Patient underwent multiple surgical procedures as mentioned below/management per surgery 1) Abdominal re-exploration and washout, cholecystectomy, primary closure of abdominal wall 07/10/18, POD 1 2) exploratory laparotomy, small bowel resection with primary anastamosis, right hemicolectomy with ileocolonic anastamosis,temporary closure of abdomen with abthera vac 07/07/18 - POD#5; 3) Exploratory laparotomy, small bowel resection, partial colon resection, temporary abdominal closure with abthera vac 07/04/18, POD7 ; and 4) Exploratory laparotomy, Ezequiel's procedure 06/24/18 --Acute hypoxic respiratory failure;Requiring intubation , extubated yesterday Oxygen titrate O2 sats to more than 90%, supportive care, pulmonary following --Acute exacerbation of COPD; continue current management Nebulizers inhalation steroids supportive care --Acute SMA/SMV/distal aortic Thrombosis; vascular following, on heparin drip Patient may need lifelong anticoagulation per vascular, initiate Coumadin after speech and swallow evaluation Target INR 2-3 --Sepsis; continue cefepime and fluconazole and Flagyl, ID following --Leukocytosis; secondary to sepsis, trending down --Severe malnutrition; nutrition consult, TPN --Speech and swallow evaluation, diet as tolerated when patient is surgically ready for oral nutrition --Ongoing tobacco use; smoking cessation, nicotine patch as needed --DVT prophylaxis; the patient is already on heparin drip --Physical therapy occupational therapy --Discharge planning. Case management and patient is stable Consults and recommendations noted and appreciated Monitor closely and adjust the management as needed Transfer to medical/telemetry/surgical floor in the next 24 hours Plan of care reviewed with the patient , her nurse and case management Critical care time 31 minutes History Interval history: Patient seen and examined medical records reviewed No new events reported by the nursing staff Patient was extubated yesterday, feels better No new complaints Vital signs reviewed Hospitalist Physical - Constitutional Vitals: Temp Pulse Resp BP Pulse Ox 98.2 F 115 H 28 H 140/81 95 07/12/18 07:59 07/12/18 07:53 07/12/18 07:53 07/12/18 06:00 07/12/18 07:55 General appearance: Present: no acute distress, cachectic - EENT Eyes: Present: PERRL, EOM intact - Neck Neck: Present: supple, normal ROM - Respiratory Respiratory effort: normal Respiratory: bilateral: diminished, negative: rales, rhonchi, wheezing - Cardiovascular Rhythm: regular Heart Sounds: Present: S1 & S2 - Extremities Extremities: no ischemia, No edema - Abdominal General gastrointestinal: soft, non-tender, non-distended, normal bowel sounds - Integumentary Integumentary: Present: clear, warm - Psychiatric Psychiatric: appropriate mood/affect, cooperative - Neurologic Neurologic: moves all extremities Results - Labs CBC & Chem 7: 07/12/18 04:16 07/12/18 04:16 Labs: Laboratory Last Values WBC 17.7 K/mm3 (4.5-11.0) H 07/11/18 05:13 RBC 3.19 M/mm3 (3.65-5.03) L 07/11/18 05:13 Hgb 10.2 gm/dl (10.1-14.3) 07/12/18 04:16 Hct 30.3 % (30.3-42.9) 07/12/18 04:16 MCV 88 fl (79-97) 07/11/18 05:13 MCH 30 pg (28-32) 07/11/18 05:13 MCHC 34 % (30-34) 07/11/18 05:13 RDW 15.2 % (13.2-15.2) 07/11/18 05:13 Plt Count 533 K/mm3 (140-440) H 07/12/18 04:16 Add Manual Diff Complete 07/11/18 05:13 Total Counted 100 07/11/18 05:13 Seg Neutrophils % Maintenance Planner 06/29/18 00:57 Seg Neuts % (Manual) 71.0 % (40.0-70.0) H 07/11/18 05:13 10.0 % 07/11/18 05:13 10.0 % (13.4-35.0) L 07/11/18 05:13 Reactive Lymphs % (Man) 0 % 07/11/18 05:13 9.0 % (0.0-7.3) H 07/11/18 05:13 0 % (0.0-4.3) 07/11/18 05:13 0 % (0.0-1.8) 07/11/18 05:13 0 % 07/11/18 05:13 0 % 07/11/18 05:13 0 % 07/11/18 05:13 0 % 07/11/18 05:13 Nucleated RBC % Not Reportable 07/11/18 05:13 Seg Neutrophils # Man 12.6 K/mm3 (1.8-7.7) H 07/11/18 05:13 Band Neutrophils # 1.8 K/mm3 07/11/18 05:13 1.8 K/mm3 (1.2-5.4) 07/11/18 05:13 Abs React Lymphs (Man) 0.0 K/mm3 07/11/18 05:13 1.6 K/mm3 (0.0-0.8) H 07/11/18 05:13 0.0 K/mm3 (0.0-0.4) 07/11/18 05:13 0.0 K/mm3 (0.0-0.1) 07/11/18 05:13 0.0 K/mm3 07/11/18 05:13 0.0 K/mm3 07/11/18 05:13 0.0 K/mm3 07/11/18 05:13 Blast Cells # 0.0 K/mm3 07/11/18 05:13 WBC Morphology Not Reportable 07/11/18 05:13 Hypersegmented Neuts Not Reportable 07/11/18 05:13 Hyposegmented Neuts Not Reportable 07/11/18 05:13 Hypogranular Neuts Not Reportable 07/11/18 05:13 Not Reportable 07/11/18 05:13 Not Reportable 07/11/18 05:13 Not Reportable 07/11/18 05:13 Not Reportable 07/11/18 05:13 Not Reportable 07/11/18 05:13 Not Reportable 07/11/18 05:13 Appears increased 07/11/18 05:13 Not Reportable 07/11/18 05:13 Plt Clumps, EDTA Not Reportable 07/11/18 05:13 Not Reportable 07/11/18 05:13 Not Reportable 07/11/18 05:13 Not Reportable 07/11/18 05:13 Plt Morphology Comment Not Reportable 07/11/18 05:13 RBC Morphology Not Reportable 07/11/18 05:13 Dimorphic RBCs Not Reportable 07/11/18 05:13 1+ 07/11/18 05:13 Not Reportable 07/11/18 05:13 Not Reportable 07/11/18 05:13 1+ 07/11/18 05:13 Not Reportable 07/11/18 05:13 Not Reportable 07/11/18 05:13 Not Reportable 07/11/18 05:13 Not Reportable 07/11/18 05:13 Not Reportable 07/11/18 05:13 Rare 07/11/18 05:13 Not Reportable 07/11/18 05:13 Not Reportable 07/11/18 05:13 Few 07/11/18 05:13 Not Reportable 07/11/18 05:13 Not Reportable 07/11/18 05:13 Not Reportable 07/11/18 05:13 Not Reportable 07/11/18 05:13 Not Reportable 07/11/18 05:13 Not Reportable 07/11/18 05:13 Not Reportable 07/11/18 05:13 Acanthocytes (Spur) Not Reportable 07/11/18 05:13 Rouleaux Not Reportable 07/11/18 05:13 Not Reportable 07/11/18 05:13 Not Reportable 07/11/18 05:13 Not Reportable 07/11/18 05:13 Not Reportable 07/11/18 05:13 Hem Pathologist Commnt No 07/11/18 05:13 PT 15.6 Sec. (12.2-14.9) H 07/12/18 04:16 INR 1.17 (0.87-1.13) H 07/12/18 04:16 APTT 42.2 Sec. (24.2-36.6) H 07/07/18 15:20 Heparin Anti-Xa Level 0.67 U.I./ml (0.3-0.7) 07/12/18 04:16 POC ABG pH 7.431 (7.35-7.45) 07/10/18 04:32 POC ABG pCO2 48.5 (35-45) H 07/10/18 04:32 POC ABG pO2 104 (80-105) 07/10/18 04:32 POC ABG HCO3 32.2 (22-26 mml/L) 07/10/18 04:32 POC ABG Total CO2 34 (23-27mmol/L) 07/10/18 04:32 POC ABG O2 Sat 98 07/10/18 04:32 POC ABG Base Excess 8 ((-2) - (+3)mmol/L) 07/10/18 04:32 28 % 07/10/18 04:32 Sodium 144 mmol/L (137-145) 07/12/18 04:16 Potassium 3.2 mmol/L (3.6-5.0) L 07/12/18 04:16 Chloride 103.7 mmol/L (98-107) 07/12/18 04:16 Carbon Dioxide 28 mmol/L (22-30) 07/12/18 04:16 16 mmol/L 07/12/18 04:16 BUN 14 mg/dL (7-17) 07/12/18 04:16 < 0.2 mg/dL (0.7-1.2) L 07/12/18 04:16 Estimated GFR > 60 ml/min 07/12/18 04:16 70 % 07/12/18 04:16 Glucose 148 mg/dL (65-100) H 07/12/18 04:16 POC Glucose 151 (70-105) H 07/12/18 05:19 Lactic Acid 1.40 mmol/L (0.7-2.0) 07/04/18 21:11 Calcium 8.6 mg/dL (8.4-10.2) 07/12/18 04:16 Phosphorus 2.60 mg/dL (2.5-4.5) 07/12/18 04:16 Magnesium 2.10 mg/dL (1.7-2.3) 07/12/18 04:16 Iron 40 ug/dL (37-170) 07/07/18 11:50 TIBC 94 mcg/dL (250-450) L 07/07/18 11:50 377.8 ng/mL (13.0-400.0) 07/07/18 11:50 0.40 mg/dL (0.1-1.2) 07/12/18 04:16 < 0.2 mg/dL (0-0.2) 07/12/18 04:16 0.2 mg/dL 07/12/18 04:16 AST 26 units/L (5-40) 07/12/18 04:16 ALT 32 units/L (7-56) 07/12/18 04:16 168 units/L (35-129) H 07/12/18 04:16 13.20 mg/dL (0.00-1.30) H 07/03/18 11:07 NT-Pro-B Natriuret Pep 1572 pg/mL (0-900) H 06/28/18 09:56 6.1 g/dL (6.3-8.2) L 07/12/18 04:16 2.4 g/dL (3.9-5) L 07/12/18 04:16 0.6 % 07/12/18 04:16 Triglycerides 127 mg/dL (2-149) 07/07/18 02:14 8 units/L (13-60) L 06/24/18 11:19 Vitamin B12 924.8 pg/mL (211-911) H 07/07/18 11:50 4.92 ng/mL (7.3-26.0) L 07/07/18 11:50 Na (Yellow) 07/03/18 Unknown Hazy (Clear) 07/03/18 Unknown 6.0 (5.0-7.0) 07/03/18 Unknown Ur Specific Frederic 1.023 (1.003-1.030) 07/03/18 Unknown <15 mg/dl mg/dL (Negative) 07/03/18 Unknown Neg mg/dL (Negative) 07/03/18 Unknown Neg mg/dL (Negative) 07/03/18 Unknown Sm (Negative) 07/03/18 Unknown Neg (Negative) 07/03/18 Unknown Neg (Negative) 07/03/18 Unknown < 2.0 mg/dL (<2.0) 07/03/18 Unknown Ur Leukocyte Esterase Neg (Negative) 07/03/18 Unknown 1.0 /HPF (0.0-6.0) 07/03/18 Unknown 3.0 /HPF (0.0-6.0) 07/03/18 Unknown U Epithel Cells (Auto) 7.0 /HPF (0-13.0) 07/03/18 Unknown 1+ /HPF (Negative) 06/24/18 13:00 Few /HPF 07/03/18 Unknown Vancomycin Trough 38.9 ug/mL (5.0-20.0) H 07/05/18 10:57 Blood Type O POSITIVE 07/04/18 17:54 Antibody Screen TNR 07/04/18 17:54 FADY Antibody Screen Negative 07/04/18 17:54 Crossmatch See Detail 07/04/18 17:54 Crossmatch See Detail 07/04/18 17:54 Active Medications - Current Medications Current Medications: Generic Name Dose Route Start Last Admin Trade Name Freq PRN Reason Stop Dose Admin Albuterol 2.5 mg 07/02/18 07:44 Proventil IH Q4HRT PRN Shortness Of Breath Albuterol/Ipratropium 1 ampul 07/02/18 14:00 07/12/18 07:53 Duoneb *Not For Prn Use* IH 1 ampul TIDRT [facility] Administration Budesonide 0.5 mg 07/02/18 20:00 07/12/18 07:53 Pulmicort IH 0.5 mg Q12HRT [facility] Administration Famotidine 20 mg 07/11/18 10:00 07/11/18 21:51 Pepcid IV 20 mg BID [facility] Administration Hydromorphone HCl 1 mg 07/11/18 11:11 07/12/18 06:10 Dilaudid IV 1 mg Q4H PRN Administration Pain , Severe (7-10) Hydrophilic Ointment 1 applic 07/04/18 18:23 Vaseline Lip Therapy TP Q2HR PRN Dry Lips Metronidazole 500 mg in 100 mls @ 100 mls/hr 06/24/18 22:00 07/12/18 05:44 Flagyl 500 Mg/100 Ml IV 100 mls/hr Q8H [facility] Administration Protocol Fluconazole 200 mls @ 100 mls/hr 06/26/18 14:00 07/11/18 12:00 Diflucan IV Infused Q24HR [facility] Infusion Protocol Cefepime HCl 2 gm in 100 mls @ 200 mls/hr 06/27/18 14:00 07/11/18 21:51 Maxipime/Ns 2 Gm/100 Ml IV 200 mls/hr Q12HR [facility] Administration Protocol Heparin Sodium/Sodium Chloride 25,000 unit in 500 mls @ 15 mls/hr 07/07/18 14:00 07/12/18 07:18 Heparin/ 0.45% Nacl-25,000 Unit/500 Ml IV 1,650 units/hr TITR [facility] 33 mls/hr Administration Protocol 750 UNITS/HR Amino Acids/Electrolytes/Dextrose 1,800 mls @ 75 mls/hr 07/11/18 20:00 07/11/18 21:53 Tpn Adult IV 07/12/18 19:59 75 mls/hr DAILY@1999 [facility] Administration Protocol Potassium Chloride 20 meq in 100 mls @ 100 mls/hr 07/12/18 08:30 Kcl 20meq/100ml IV 07/12/18 10:29 Q1H [facility] Multi-Ingred Cream/Lotion/Oil/Oint 1 applic 07/04/18 18:23 Artificial Tears Ophth Oint OU Q4HR PRN Dry Eye(s) Naloxone HCl 0.1 mg 06/24/18 18:55 Narcan 0.4 Mg/1 Ml IV Q2MIN PRN Res Rate </= 8 or 02 SAT < 92% Nicotine 14 mg 06/25/18 10:00 07/11/18 10:00 Habitrol TD 14 mg QDAY [facility] Administration Ondansetron HCl 4 mg 06/24/18 14:00 06/29/18 04:00 Zofran IV 4 mg Q8H PRN Administration Nausea And Vomiting Sodium Chloride 10 ml 06/24/18 22:00 07/11/18 22:00 Sodium Chloride Flush Syringe 10 Ml IV 10 ml BID [facility] Administration Sodium Chloride 10 ml 06/24/18 14:00 07/07/18 16:07 Sodium Chloride Flush Syringe 10 Ml IV 10 ml PRN PRN Administration LINE FLUSH Nutrition/Malnutrition Assess - Dietary Evaluation Nutrition/Malnutrition Findings: Nutrition Notes Start: 06/30/18 16:45 Freq: Status: Active Protocol: Document 07/11/18 13:21 LP (Rec: 07/11/18 13:29 LP [id number]) Nutrition Notes Initial or Follow up Reassessment Current Diagnosis Respiratory Failure Other Pertinent Diagnosis Perforated viscus s/p exp lap Current Diet CPN at 75ml/hr Labs/Tests K 3.6 Pertinent Medications Reviewed Height 5 ft 3 in Weight 52 kg [place] Body Weight (kg) 52.27 BMI 20.2 Subjective/Other Information CPN day 6. Pt is S/P abdominal re-exploration and washout, cholecystectomy, and closure of abdominal wall. Pt is now extubated, continues on NGT to [facility]. [facility] [employer] consulted for swallowing function only, will not advance oral diet anytime soon. Percent of energy/protein needs met: 80%/100% Burn Absent Trauma Absent #2 Nutrition Diagnosis Inadequate oral intake Diagnosis Progress(for reassessment Continues documentation) #1 Nutrition Diagnosis Increased nutrient needs ( specify in comment below) Diagnosis Progress(for reassessment Continues documentation) Is patient on ventilator? No Is Patient Ambulatory and/or Out of Bed No REE-([facility]-confined to bed) 1287.900 Kcal/Kg value to use for calculation 33 Approximate Energy Requirements Using 1716 kcal/Kg Calculation Used for Recommendations Kcal/kg Additional Notes Pro needs 1.2-2/k-104g/ day Fluid needs 1ml/kcal Nutrition Intervention Change Diet Order: CPN Nutrition Support: CPN at 75 ml/hr: 13.9% dextrose, 135mEq K Osmolarity: 1577 Kcal 1,270 Protein (gm) 105 Carbohydrates (gm) 250 Fat (gm) 0 Fluid (mL) 1,800 Fiber (gm) 0 Goal #1 Meet at least 80% of kcal and protein needs as best as possible Anticipated Discharge Needs: home TPN Follow-Up By: 07/12/18 Additional Comments Labs in AM: BMP, Mg,Phos
[2018-07-12] MEDS: MAXIPIME/NS 2 GM/100 ML 2 GM/100 ML BAG IV SCH (10:13)
[2018-07-12] MEDS: HABITROL TD SCH (10:14)
[2018-07-12] MEDS: KCL 20MEQ/100ML 20 MEQ/100 ML BAG IV SCH ×2 (10:14→11:55)
[2018-07-12] MEDS: DIFLUCAN 200 ML IV SCH (10:15)
[2018-07-12] MEDS: PEPCID IV SCH ×2 (10:15→22:22)
[2018-07-12] MEDS: SODIUM CHLORIDE FLUSH SYRINGE 10 ML IV SCH ×2 (10:31→22:27)
--- NOTE | 2018-07-12 10:54 | Progress Note ---
Assessment and Plan 58 y/o female with acute respiratory failure secondary to volume overload and possible COPD exacerbation Post op from [facility] for perforated viscous, now with recurrent surgical issues and intubation, going back to OR today. 1. Continue nasal cannul and therapy for COPD. 2. Continue TPN 3. Abx therapy per ID. 4. Reviewed IR note and they suggest SHAUNA when acute issues resolve, assuming they mean her abdomen. 5. Life long anticoagulation 6. Stable for transfer to surgical floor. Subjective Date of service: 07/12/18 Principal diagnosis: small bowel ischemiaperitonitis/penumonia Interval history: No acute events. Stable post extubation on nasal cannula. Still sad but spirits are ok. No family or friends at bedside this am. Speech saw this am and she passed swallow eval so able to take PO meds. Remains on TPN and will be for some time. Objective Vital Signs - 12hr 07/11/18 07/11/18 07/11/18 23:00 23:01 23:15 Temperature Pulse Rate 105 H 103 H 99 H Pulse Rate [ Anterior Throughout] Pulse Rate [ From Monitor] Respiratory 22 23 19 Rate Respiratory Rate [Anterior Throughout] Blood Pressure 134/71 134/71 134/71 O2 Sat by Pulse 98 99 100 Oximetry 07/11/18 07/11/18 07/11/18 23:31 23:45 23:56 Temperature 99.4 F Pulse Rate 99 H 102 H Pulse Rate [ Anterior Throughout] Pulse Rate [ From Monitor] Respiratory 21 29 H Rate Respiratory Rate [Anterior Throughout] Blood Pressure 134/71 134/71 O2 Sat by Pulse 99 98 Oximetry 07/12/18 07/12/18 07/12/18 00:00 00:15 00:31 Temperature Pulse Rate 108 H 107 H 107 H Pulse Rate [ Anterior Throughout] Pulse Rate [ From Monitor] Respiratory 26 H 22 27 H Rate Respiratory Rate [Anterior Throughout] Blood Pressure 149/72 149/72 149/72 O2 Sat by Pulse 96 97 98 Oximetry 07/12/18 07/12/18 07/12/18 00:45 01:01 01:15 Temperature Pulse Rate 108 H 113 H 106 H Pulse Rate [ Anterior Throughout] Pulse Rate [ From Monitor] Respiratory 25 H 29 H 27 H Rate Respiratory Rate [Anterior Throughout] Blood Pressure 149/72 123/90 123/90 O2 Sat by Pulse 98 93 98 Oximetry 07/12/18 07/12/18 07/12/18 01:31 01:45 02:00 Temperature Pulse Rate 109 H 110 H 110 H Pulse Rate [ Anterior Throughout] Pulse Rate [ From Monitor] Respiratory 27 H 27 H 27 H Rate Respiratory Rate [Anterior Throughout] Blood Pressure 123/90 123/90 148/69 O2 Sat by Pulse 97 97 96 Oximetry 07/12/18 07/12/18 07/12/18 02:15 02:31 02:45 Temperature Pulse Rate 110 H 110 H 111 H Pulse Rate [ Anterior Throughout] Pulse Rate [ From Monitor] Respiratory 25 H 30 H 29 H Rate Respiratory Rate [Anterior Throughout] Blood Pressure 148/69 148/69 148/69 O2 Sat by Pulse 99 98 98 Oximetry 07/12/18 07/12/18 07/12/18 03:00 03:15 03:31 Temperature Pulse Rate 106 H 105 H 108 H Pulse Rate [ Anterior Throughout] Pulse Rate [ From Monitor] Respiratory 31 H 35 H 31 H Rate Respiratory Rate [Anterior Throughout] Blood Pressure 140/77 148/69 148/69 O2 Sat by Pulse 99 98 99 Oximetry 07/12/18 07/12/18 07/12/18 03:45 04:00 04:15 Temperature 98.7 F Pulse Rate 107 H 100 H 106 H Pulse Rate [ Anterior Throughout] Pulse Rate [ 108 H From Monitor] Respiratory 29 H 19 30 H Rate Respiratory Rate [Anterior Throughout] Blood Pressure 148/69 143/86 143/86 O2 Sat by Pulse 97 96 Oximetry 07/12/18 07/12/18 07/12/18 04:30 04:45 05:00 Temperature Pulse Rate 108 H 111 H 107 H Pulse Rate [ Anterior Throughout] Pulse Rate [ From Monitor] Respiratory 30 H 31 H 29 H Rate Respiratory Rate [Anterior Throughout] Blood Pressure 143/86 143/86 143/84 O2 Sat by Pulse 96 96 94 Oximetry 07/12/18 07/12/18 07/12/18 05:15 05:31 05:45 Temperature Pulse Rate 104 H 106 H 110 H Pulse Rate [ Anterior Throughout] Pulse Rate [ From Monitor] Respiratory 31 H 28 H 31 H Rate Respiratory Rate [Anterior Throughout] Blood Pressure 143/84 143/84 143/84 O2 Sat by Pulse 96 98 94 Oximetry 07/12/18 07/12/18 07/12/18 06:00 06:15 06:31 Temperature Pulse Rate 114 H 108 H 106 H Pulse Rate [ Anterior Throughout] Pulse Rate [ From Monitor] Respiratory 35 H 27 H 27 H Rate Respiratory Rate [Anterior Throughout] Blood Pressure 140/81 143/84 143/84 O2 Sat by Pulse 89 93 92 Oximetry 07/12/18 07/12/18 07/12/18 06:45 07:00 07:15 Temperature Pulse Rate 109 H 108 H 114 H Pulse Rate [ Anterior Throughout] Pulse Rate [ From Monitor] Respiratory 24 23 24 Rate Respiratory Rate [Anterior Throughout] Blood Pressure 143/84 141/86 141/86 O2 Sat by Pulse 96 97 95 Oximetry 07/12/18 07/12/18 07/12/18 07:31 07:45 07:53 Temperature Pulse Rate 109 H 109 H Pulse Rate [ 115 H Anterior Throughout] Pulse Rate [ From Monitor] Respiratory 24 24 Rate Respiratory 28 H Rate [Anterior Throughout] Blood Pressure 141/86 141/86 O2 Sat by Pulse 96 96 Oximetry 07/12/18 07/12/18 07/12/18 07:55 07:59 08:00 Temperature 98.2 F Pulse Rate 109 H Pulse Rate [ Anterior Throughout] Pulse Rate [ From Monitor] Respiratory 24 Rate Respiratory Rate [Anterior Throughout] Blood Pressure 144/83 O2 Sat by Pulse 95 94 Oximetry 07/12/18 07/12/18 07/12/18 08:15 08:30 08:45 Temperature Pulse Rate 121 H 123 H 116 H Pulse Rate [ Anterior Throughout] Pulse Rate [ From Monitor] Respiratory 26 H 24 27 H Rate Respiratory Rate [Anterior Throughout] Blood Pressure 144/83 143/84 144/83 O2 Sat by Pulse 96 91 96 Oximetry 07/12/18 09:01 Temperature Pulse Rate 113 H Pulse Rate [ Anterior Throughout] Pulse Rate [ From Monitor] Respiratory 26 H Rate Respiratory Rate [Anterior Throughout] Blood Pressure 142/79 O2 Sat by Pulse 92 Oximetry Constitutional: no acute distress, alert Eyes: non-icteric ENT: oropharynx moist, other (ETT in position) Neck: supple, no JVD Effort: normal Ascultation: Bilateral: clear, diminished breath sounds, wheezes, rales Percussion: Bilateral: not dull Tactile fremitus: Bilateral: normal Cardiovascular: regular rate and rhythm Gastrointestinal: hypoactive bowel sounds, tender, other (mildly distended,open wound covered exploratory lab,colostomy) Integumentary: normal Extremities: no cyanosis, no edema Neurologic: normal mental status, non-focal exam Psychiatric: mood appropriate CBC and BMP: 07/12/18 04:16 07/12/18 04:16 ABG, PT/INR, D-dimer: ABG POC ABG pH 7.431 (7.35-7.45) 07/10/18 04:32 POC ABG pCO2 48.5 (35-45) H 07/10/18 04:32 POC ABG pO2 104 (80-105) 07/10/18 04:32 POC ABG HCO3 32.2 (22-26 mml/L) 07/10/18 04:32 POC ABG Total CO2 34 (23-27mmol/L) 07/10/18 04:32 POC ABG O2 Sat 98 07/10/18 04:32 PT/INR, D-dimer PT 15.6 Sec. (12.2-14.9) H 07/12/18 04:16 INR 1.17 (0.87-1.13) H 07/12/18 04:16 Abnormal lab findings: Abnormal Labs 06/24/18 06/24/18 06/24/18 11:18 11:19 11:19 WBC 19.0 H RBC Hgb Hct MCHC 35 H RDW Plt Count 457 H Seg Neuts % (Manual) 88.0 H Lymphocytes % (Manual) 2.0 L Monocytes % (Manual) Seg Neutrophils # Man 16.7 H Lymphocytes # (Manual) 0.4 L Monocytes # (Manual) PT 15.9 H INR 1.19 H APTT Heparin Anti-Xa Level POC ABG pH POC ABG pCO2 POC ABG pO2 Sodium 136 L Potassium 2.8 L* Chloride 96.7 L Carbon Dioxide BUN Creatinine 0.4 L Glucose 146 H POC Glucose Calcium Phosphorus TIBC Total Bilirubin 1.90 H Direct Bilirubin 1.5 H Alkaline Phosphatase 264 H C-Reactive Protein NT-Pro-B Natriuret Pep Total Protein Albumin 3.0 L Lipase 8 L Vitamin B12 Folate Ur Specific [place] Vancomycin Trough Crossmatch 06/24/18 06/24/18 06/25/18 13:00 19:47 06:55 WBC 18.3 H RBC Hgb Hct MCHC 35 H RDW Plt Count 481 H Seg Neuts % (Manual) 88.0 H Lymphocytes % (Manual) 4.0 L Monocytes % (Manual) Seg Neutrophils # Man 16.1 H Lymphocytes # (Manual) 0.7 L Monocytes # (Manual) PT INR APTT Heparin Anti-Xa Level POC ABG pH POC ABG pCO2 POC ABG pO2 Sodium Potassium 3.5 L D Chloride Carbon Dioxide 21 L BUN Creatinine 0.3 L Glucose 166 H POC Glucose Calcium 7.4 L D Phosphorus TIBC Total Bilirubin Direct Bilirubin Alkaline Phosphatase C-Reactive Protein NT-Pro-B Natriuret Pep Total Protein Albumin Lipase Vitamin B12 Folate Ur Specific [place] > 1.059 H Vancomycin Trough Crossmatch 06/25/18 06/26/18 06/26/18 06:55 11:54 11:54 WBC 19.9 H RBC 3.48 L Hgb Hct MCHC RDW Plt Count 583 H Seg Neuts % (Manual) Lymphocytes % (Manual) Monocytes % (Manual) Seg Neutrophils # Man Lymphocytes # (Manual) Monocytes # (Manual) PT INR APTT Heparin Anti-Xa Level POC ABG pH POC ABG pCO2 POC ABG pO2 Sodium 146 H Potassium 3.5 L Chloride 108.3 H 109.9 H Carbon Dioxide BUN Creatinine 0.4 L 0.3 L Glucose 159 H 153 H POC Glucose Calcium 7.7 L 8.2 L Phosphorus TIBC Total Bilirubin Direct Bilirubin Alkaline Phosphatase 152 H C-Reactive Protein NT-Pro-B Natriuret Pep Total Protein 5.3 L Albumin 2.1 L Lipase Vitamin B12 Folate Ur Specific [place] Vancomycin Trough Crossmatch 06/26/18 06/26/18 06/27/18 14:12 20:37 02:04 WBC RBC Hgb Hct MCHC RDW Plt Count Seg Neuts % (Manual) Lymphocytes % (Manual) Monocytes % (Manual) Seg Neutrophils # Man Lymphocytes # (Manual) Monocytes # (Manual) PT INR APTT Heparin Anti-Xa Level POC ABG pH 7.471 H 7.458 H POC ABG pCO2 POC ABG pO2 74 L 70 L Sodium Potassium Chloride Carbon Dioxide BUN Creatinine Glucose POC Glucose Calcium Phosphorus TIBC Total Bilirubin Direct Bilirubin Alkaline Phosphatase C-Reactive Protein 25.70 H NT-Pro-B Natriuret Pep Total Protein Albumin Lipase Vitamin B12 Folate Ur Specific [place] Vancomycin Trough Crossmatch 06/27/18 06/27/18 06/28/18 09:19 11:50 00:17 WBC 24.5 H 37.2 H RBC Hgb Hct MCHC RDW 15.4 H Plt Count 583 H 657 H Seg Neuts % (Manual) 98.0 H 88.5 H Lymphocytes % (Manual) 1.0 L 4.0 L Monocytes % (Manual) Seg Neutrophils # Man 24.0 H 32.9 H Lymphocytes # (Manual) 0.2 L Monocytes # (Manual) 1.1 H PT INR APTT Heparin Anti-Xa Level POC ABG pH POC ABG pCO2 POC ABG pO2 Sodium 146 H Potassium 3.5 L Chloride Carbon Dioxide BUN Creatinine 0.3 L Glucose 176 H POC Glucose Calcium 8.2 L Phosphorus TIBC Total Bilirubin Direct Bilirubin Alkaline Phosphatase C-Reactive Protein NT-Pro-B Natriuret Pep Total Protein Albumin Lipase Vitamin B12 Folate Ur Specific [place] Vancomycin Trough Crossmatch 06/28/18 06/28/18 06/28/18 09:56 09:56 09:56 WBC 37.8 H RBC Hgb Hct MCHC RDW 15.3 H Plt Count 634 H Seg Neuts % (Manual) Lymphocytes % (Manual) Monocytes % (Manual) Seg Neutrophils # Man Lymphocytes # (Manual) Monocytes # (Manual) PT INR APTT Heparin Anti-Xa Level POC ABG pH POC ABG pCO2 POC ABG pO2 Sodium 146 H Potassium 2.8 L* Chloride Carbon Dioxide 31 H BUN Creatinine 0.3 L Glucose 142 H POC Glucose Calcium 8.2 L Phosphorus TIBC Total Bilirubin Direct Bilirubin Alkaline Phosphatase C-Reactive Protein NT-Pro-B Natriuret Pep 1572 H Total Protein Albumin Lipase Vitamin B12 Folate Ur Specific [place] Vancomycin Trough Crossmatch 06/28/18 06/28/18 06/29/18 13:19 21:24 00:57 WBC 28.9 H RBC Hgb Hct MCHC RDW Plt Count 681 H Seg Neuts % (Manual) 93.0 H Lymphocytes % (Manual) 1.5 L Monocytes % (Manual) Seg Neutrophils # Man 26.9 H Lymphocytes # (Manual) 0.4 L Monocytes # (Manual) PT INR APTT Heparin Anti-Xa Level POC ABG pH 7.470 H POC ABG pCO2 53.0 H POC ABG pO2 120 H Sodium Potassium 3.0 L Chloride Carbon Dioxide 33 H BUN Creatinine 0.3 L Glucose 116 H POC Glucose Calcium 8.2 L Phosphorus TIBC Total Bilirubin Direct Bilirubin Alkaline Phosphatase C-Reactive Protein NT-Pro-B Natriuret Pep Total Protein Albumin Lipase Vitamin B12 Folate Ur Specific [place] Vancomycin Trough Crossmatch 06/29/18 06/29/18 06/29/18 05:58 05:58 12:21 WBC 25.8 H RBC Hgb Hct MCHC RDW Plt Count 661 H Seg Neuts % (Manual) Lymphocytes % (Manual) Monocytes % (Manual) Seg Neutrophils # Man Lymphocytes # (Manual) Monocytes # (Manual) PT INR APTT Heparin Anti-Xa Level POC ABG pH POC ABG pCO2 POC ABG pO2 Sodium Potassium 2.7 L* Chloride Carbon Dioxide 35 H BUN Creatinine 0.3 L Glucose 132 H POC Glucose 130 H Calcium 8.2 L Phosphorus TIBC Total Bilirubin Direct Bilirubin Alkaline Phosphatase C-Reactive Protein NT-Pro-B Natriuret Pep Total Protein Albumin Lipase Vitamin B12 Folate Ur Specific [place] Vancomycin Trough Crossmatch 06/29/18 06/29/18 06/30/18 17:53 18:52 05:02 WBC RBC Hgb Hct MCHC RDW Plt Count Seg Neuts % (Manual) Lymphocytes % (Manual) Monocytes % (Manual) Seg Neutrophils # Man Lymphocytes # (Manual) Monocytes # (Manual) PT INR APTT Heparin Anti-Xa Level POC ABG pH POC ABG pCO2 POC ABG pO2 Sodium Potassium 3.1 L Chloride Carbon Dioxide 33 H BUN Creatinine 0.3 L Glucose 129 H POC Glucose 109 H 106 H Calcium 8.2 L Phosphorus TIBC Total Bilirubin Direct Bilirubin Alkaline Phosphatase C-Reactive Protein NT-Pro-B Natriuret Pep Total Protein Albumin Lipase Vitamin B12 Folate Ur Specific [place] Vancomycin Trough Crossmatch 06/30/18 06/30/18 06/30/18 07:19 07:19 16:17 WBC 23.1 H RBC Hgb Hct MCHC RDW Plt Count 652 H Seg Neuts % (Manual) Lymphocytes % (Manual) Monocytes % (Manual) Seg Neutrophils # Man Lymphocytes # (Manual) Monocytes # (Manual) PT INR APTT Heparin Anti-Xa Level POC ABG pH POC ABG pCO2 POC ABG pO2 Sodium Potassium 2.8 L* Chloride Carbon Dioxide BUN Creatinine 0.3 L Glucose 109 H POC Glucose Calcium 8.2 L Phosphorus TIBC Total Bilirubin Direct Bilirubin Alkaline Phosphatase C-Reactive Protein NT-Pro-B Natriuret Pep Total Protein Albumin Lipase Vitamin B12 Folate Ur Specific [place] Vancomycin Trough < 4.0 L Crossmatch 06/30/18 06/30/18 06/30/18 16:17 16:17 19:00 WBC RBC Hgb Hct MCHC RDW Plt Count Seg Neuts % (Manual) Lymphocytes % (Manual) Monocytes % (Manual) Seg Neutrophils # Man Lymphocytes # (Manual) Monocytes # (Manual) PT INR APTT Heparin Anti-Xa Level POC ABG pH POC ABG pCO2 POC ABG pO2 Sodium Potassium 3.0 L 3.2 L Chloride Carbon Dioxide BUN Creatinine 0.3 L Glucose 138 H POC Glucose Calcium Phosphorus 2.30 L D TIBC Total Bilirubin Direct Bilirubin Alkaline Phosphatase C-Reactive Protein NT-Pro-B Natriuret Pep Total Protein Albumin Lipase Vitamin B12 Folate Ur Specific [place] Vancomycin Trough Crossmatch 07/01/18 07/01/18 07/01/18 04:04 04:04 12:21 WBC 26.3 H RBC Hgb Hct MCHC RDW Plt Count Seg Neuts % (Manual) Lymphocytes % (Manual) Monocytes % (Manual) Seg Neutrophils # Man Lymphocytes # (Manual) Monocytes # (Manual) PT INR APTT Heparin Anti-Xa Level POC ABG pH POC ABG pCO2 POC ABG pO2 Sodium 147 H Potassium Chloride Carbon Dioxide BUN 22 H Creatinine 0.3 L Glucose 126 H POC Glucose 190 H Calcium Phosphorus TIBC Total Bilirubin Direct Bilirubin Alkaline Phosphatase C-Reactive Protein NT-Pro-B Natriuret Pep Total Protein Albumin Lipase Vitamin B12 Folate Ur Specific [place] Vancomycin Trough Crossmatch 07/02/18 07/02/18 07/03/18 04:17 04:17 09:58 WBC 40.2 H* 48.6 H* RBC 3.51 L Hgb Hct MCHC RDW Plt Count Seg Neuts % (Manual) Lymphocytes % (Manual) Monocytes % (Manual) Seg Neutrophils # Man Lymphocytes # (Manual) Monocytes # (Manual) PT INR APTT Heparin Anti-Xa Level POC ABG pH POC ABG pCO2 POC ABG pO2 Sodium Potassium 3.4 L Chloride Carbon Dioxide 32 H BUN 30 H Creatinine 0.3 L Glucose 166 H POC Glucose Calcium Phosphorus TIBC Total Bilirubin Direct Bilirubin Alkaline Phosphatase C-Reactive Protein NT-Pro-B Natriuret Pep Total Protein Albumin Lipase Vitamin B12 Folate Ur Specific [place] Vancomycin Trough Crossmatch 07/03/18 07/03/18 07/04/18 09:58 11:07 05:37 WBC 48.5 H* RBC 3.53 L Hgb Hct MCHC RDW Plt Count 477 H Seg Neuts % (Manual) Lymphocytes % (Manual) Monocytes % (Manual) Seg Neutrophils # Man Lymphocytes # (Manual) Monocytes # (Manual) PT INR APTT Heparin Anti-Xa Level POC ABG pH POC ABG pCO2 POC ABG pO2 Sodium Potassium 3.5 L Chloride Carbon Dioxide 31 H BUN 33 H Creatinine 0.3 L Glucose 162 H POC Glucose Calcium Phosphorus TIBC Total Bilirubin Direct Bilirubin Alkaline Phosphatase C-Reactive Protein 13.20 H NT-Pro-B Natriuret Pep Total Protein Albumin Lipase Vitamin B12 Folate Ur Specific [place] Vancomycin Trough Crossmatch 07/04/18 07/04/18 07/04/18 05:37 17:54 17:54 WBC RBC Hgb Hct MCHC RDW Plt Count Seg Neuts % (Manual) Lymphocytes % (Manual) Monocytes % (Manual) Seg Neutrophils # Man Lymphocytes # (Manual) Monocytes # (Manual) PT INR APTT Heparin Anti-Xa Level POC ABG pH POC ABG pCO2 POC ABG pO2 Sodium Potassium 3.4 L Chloride Carbon Dioxide 32 H BUN 30 H Creatinine 0.3 L Glucose 146 H POC Glucose Calcium Phosphorus TIBC Total Bilirubin Direct Bilirubin Alkaline Phosphatase C-Reactive Protein NT-Pro-B Natriuret Pep Total Protein Albumin Lipase Vitamin B12 Folate Ur Specific [place] Vancomycin Trough Crossmatch See Detail See Detail 07/04/18 07/04/18 07/04/18 19:00 19:00 21:50 WBC RBC Hgb 9.5 L Hct 28.7 L MCHC RDW Plt Count 512 H Seg Neuts % (Manual) Lymphocytes % (Manual) Monocytes % (Manual) Seg Neutrophils # Man Lymphocytes # (Manual) Monocytes # (Manual) PT 18.7 H INR 1.46 H APTT Heparin Anti-Xa Level POC ABG pH 7.469 H POC ABG pCO2 45.8 H POC ABG pO2 109 H Sodium Potassium Chloride Carbon Dioxide BUN Creatinine Glucose POC Glucose Calcium Phosphorus TIBC Total Bilirubin Direct Bilirubin Alkaline Phosphatase C-Reactive Protein NT-Pro-B Natriuret Pep Total Protein Albumin Lipase Vitamin B12 Folate Ur Specific [place] Vancomycin Trough Crossmatch 07/05/18 07/05/18 07/05/18 03:14 03:14 03:14 WBC 36.6 H RBC 3.12 L Hgb 9.1 L Hct 27.5 L MCHC RDW Plt Count 529 H Seg Neuts % (Manual) Lymphocytes % (Manual) Monocytes % (Manual) Seg Neutrophils # Man Lymphocytes # (Manual) Monocytes # (Manual) PT INR APTT Heparin Anti-Xa Level 0.10 L POC ABG pH POC ABG pCO2 POC ABG pO2 Sodium Potassium Chloride Carbon Dioxide BUN 29 H Creatinine 0.2 L Glucose 149 H POC Glucose Calcium 8.1 L Phosphorus TIBC Total Bilirubin Direct Bilirubin Alkaline Phosphatase C-Reactive Protein NT-Pro-B Natriuret Pep Total Protein 4.5 L Albumin 1.6 L Lipase Vitamin B12 Folate Ur Specific [place] Vancomycin Trough Crossmatch 07/05/18 07/05/18 07/05/18 04:45 10:57 10:57 WBC RBC Hgb Hct MCHC RDW Plt Count Seg Neuts % (Manual) Lymphocytes % (Manual) Monocytes % (Manual) Seg Neutrophils # Man Lymphocytes # (Manual) Monocytes # (Manual) PT INR APTT Heparin Anti-Xa Level < 0.10 L POC ABG pH POC ABG pCO2 50.6 H POC ABG pO2 181 H Sodium Potassium Chloride Carbon Dioxide BUN Creatinine Glucose POC Glucose Calcium Phosphorus TIBC Total Bilirubin Direct Bilirubin Alkaline Phosphatase C-Reactive Protein NT-Pro-B Natriuret Pep Total Protein Albumin Lipase Vitamin B12 Folate Ur Specific [place] Vancomycin Trough 38.9 H Crossmatch 07/05/18 07/06/18 07/06/18 18:27 02:00 04:48 WBC RBC Hgb Hct MCHC RDW Plt Count Seg Neuts % (Manual) Lymphocytes % (Manual) Monocytes % (Manual) Seg Neutrophils # Man Lymphocytes # (Manual) Monocytes # (Manual) PT INR APTT Heparin Anti-Xa Level < 0.10 L 0.23 L POC ABG pH POC ABG pCO2 POC ABG pO2 118 H Sodium Potassium Chloride Carbon Dioxide BUN Creatinine Glucose POC Glucose Calcium Phosphorus TIBC Total Bilirubin Direct Bilirubin Alkaline Phosphatase C-Reactive Protein NT-Pro-B Natriuret Pep Total Protein Albumin Lipase Vitamin B12 Folate Ur Specific [place] Vancomycin Trough Crossmatch 07/06/18 07/06/18 07/06/18 05:00 05:00 12:05 WBC 23.1 H RBC 2.50 L Hgb 7.3 L Hct 22.3 L MCHC RDW Plt Count 541 H Seg Neuts % (Manual) Lymphocytes % (Manual) Monocytes % (Manual) Seg Neutrophils # Man Lymphocytes # (Manual) Monocytes # (Manual) PT INR APTT Heparin Anti-Xa Level 0.14 L POC ABG pH POC ABG pCO2 POC ABG pO2 Sodium Potassium Chloride 109.8 H Carbon Dioxide BUN 27 H Creatinine 0.2 L Glucose 157 H POC Glucose Calcium 7.7 L Phosphorus 1.60 L TIBC Total Bilirubin Direct Bilirubin Alkaline Phosphatase C-Reactive Protein NT-Pro-B Natriuret Pep Total Protein 4.5 L Albumin 1.7 L Lipase Vitamin B12 Folate Ur Specific [place] Vancomycin Trough Crossmatch 07/06/18 07/06/18 07/07/18 17:29 19:45 00:17 WBC RBC Hgb Hct MCHC RDW Plt Count Seg Neuts % (Manual) Lymphocytes % (Manual) Monocytes % (Manual) Seg Neutrophils # Man Lymphocytes # (Manual) Monocytes # (Manual) PT INR APTT Heparin Anti-Xa Level 0.18 L POC ABG pH POC ABG pCO2 POC ABG pO2 Sodium Potassium Chloride Carbon Dioxide BUN Creatinine Glucose POC Glucose 141 H 143 H Calcium Phosphorus TIBC Total Bilirubin Direct Bilirubin Alkaline Phosphatase C-Reactive Protein NT-Pro-B Natriuret Pep Total Protein Albumin Lipase Vitamin B12 Folate Ur Specific [place] Vancomycin Trough Crossmatch 07/07/18 07/07/18 07/07/18 02:14 02:14 05:09 WBC RBC Hgb Hct MCHC RDW Plt Count Seg Neuts % (Manual) Lymphocytes % (Manual) Monocytes % (Manual) Seg Neutrophils # Man Lymphocytes # (Manual) Monocytes # (Manual) PT INR APTT Heparin Anti-Xa Level < 0.10 L POC ABG pH POC ABG pCO2 POC ABG pO2 Sodium Potassium 3.4 L Chloride Carbon Dioxide BUN Creatinine < 0.2 L Glucose 127 H POC Glucose 126 H Calcium 7.6 L Phosphorus 2.10 L D TIBC Total Bilirubin Direct Bilirubin Alkaline Phosphatase C-Reactive Protein NT-Pro-B Natriuret Pep Total Protein Albumin Lipase Vitamin B12 Folate Ur Specific [place] Vancomycin Trough Crossmatch 07/07/18 07/07/18 07/07/18 07:08 10:57 11:50 WBC 19.3 H RBC 2.49 L Hgb 7.2 L Hct 22.2 L MCHC RDW Plt Count 517 H Seg Neuts % (Manual) Lymphocytes % (Manual) Monocytes % (Manual) Seg Neutrophils # Man Lymphocytes # (Manual) Monocytes # (Manual) PT INR APTT Heparin Anti-Xa Level POC ABG pH POC ABG pCO2 POC ABG pO2 Sodium Potassium Chloride Carbon Dioxide BUN Creatinine Glucose POC Glucose 115 H Calcium Phosphorus TIBC 94 L Total Bilirubin Direct Bilirubin Alkaline Phosphatase C-Reactive Protein NT-Pro-B Natriuret Pep Total Protein Albumin Lipase Vitamin B12 Folate Ur Specific [place] Vancomycin Trough Crossmatch 07/07/18 07/07/18 07/07/18 11:50 11:50 15:20 WBC RBC Hgb Hct MCHC RDW Plt Count 489 H Seg Neuts % (Manual) Lymphocytes % (Manual) Monocytes % (Manual) Seg Neutrophils # Man Lymphocytes # (Manual) Monocytes # (Manual) PT INR APTT Heparin Anti-Xa Level POC ABG pH POC ABG pCO2 POC ABG pO2 Sodium Potassium Chloride Carbon Dioxide BUN Creatinine Glucose POC Glucose Calcium Phosphorus TIBC Total Bilirubin Direct Bilirubin Alkaline Phosphatase C-Reactive Protein NT-Pro-B Natriuret Pep Total Protein Albumin Lipase Vitamin B12 924.8 H Folate 4.92 L Ur Specific [place] Vancomycin Trough Crossmatch 07/07/18 07/07/18 07/07/18 15:20 18:16 20:04 WBC RBC Hgb Hct MCHC RDW Plt Count Seg Neuts % (Manual) Lymphocytes % (Manual) Monocytes % (Manual) Seg Neutrophils # Man Lymphocytes # (Manual) Monocytes # (Manual) PT 15.2 H INR APTT 42.2 H Heparin Anti-Xa Level < 0.10 L POC ABG pH POC ABG pCO2 POC ABG pO2 Sodium Potassium Chloride Carbon Dioxide BUN Creatinine Glucose POC Glucose 125 H Calcium Phosphorus TIBC Total Bilirubin Direct Bilirubin Alkaline Phosphatase C-Reactive Protein NT-Pro-B Natriuret Pep Total Protein Albumin Lipase Vitamin B12 Folate Ur Specific [place] Vancomycin Trough Crossmatch 07/08/18 07/08/18 07/08/18 01:07 03:40 03:40 WBC RBC Hgb Hct MCHC RDW Plt Count 477 H Seg Neuts % (Manual) Lymphocytes % (Manual) Monocytes % (Manual) Seg Neutrophils # Man Lymphocytes # (Manual) Monocytes # (Manual) PT INR APTT Heparin Anti-Xa Level POC ABG pH POC ABG pCO2 POC ABG pO2 Sodium Potassium Chloride Carbon Dioxide BUN Creatinine < 0.2 L Glucose 161 H POC Glucose 132 H Calcium 7.9 L Phosphorus TIBC Total Bilirubin Direct Bilirubin Alkaline Phosphatase C-Reactive Protein NT-Pro-B Natriuret Pep Total Protein Albumin Lipase Vitamin B12 Folate Ur Specific [place] Vancomycin Trough Crossmatch 07/08/18 07/08/18 07/08/18 06:16 11:35 17:28 WBC RBC Hgb Hct MCHC RDW Plt Count Seg Neuts % (Manual) Lymphocytes % (Manual) Monocytes % (Manual) Seg Neutrophils # Man Lymphocytes # (Manual) Monocytes # (Manual) PT INR APTT Heparin Anti-Xa Level POC ABG pH POC ABG pCO2 POC ABG pO2 Sodium Potassium Chloride Carbon Dioxide BUN Creatinine Glucose POC Glucose 143 H 154 H 136 H Calcium Phosphorus TIBC Total Bilirubin Direct Bilirubin Alkaline Phosphatase C-Reactive Protein NT-Pro-B Natriuret Pep Total Protein Albumin Lipase Vitamin B12 Folate Ur Specific [place] Vancomycin Trough Crossmatch 07/08/18 07/09/18 07/09/18 23:12 04:37 05:30 WBC RBC Hgb 8.6 L Hct 25.6 L D MCHC RDW Plt Count 445 H Seg Neuts % (Manual) Lymphocytes % (Manual) Monocytes % (Manual) Seg Neutrophils # Man Lymphocytes # (Manual) Monocytes # (Manual) PT INR APTT Heparin Anti-Xa Level POC ABG pH POC ABG pCO2 46.9 H POC ABG pO2 120 H Sodium Potassium Chloride Carbon Dioxide BUN Creatinine Glucose POC Glucose 146 H Calcium Phosphorus TIBC Total Bilirubin Direct Bilirubin Alkaline Phosphatase C-Reactive Protein NT-Pro-B Natriuret Pep Total Protein Albumin Lipase Vitamin B12 Folate Ur Specific [place] Vancomycin Trough Crossmatch 07/09/18 07/09/18 07/09/18 05:30 05:34 23:41 WBC RBC Hgb Hct MCHC RDW Plt Count Seg Neuts % (Manual) Lymphocytes % (Manual) Monocytes % (Manual) Seg Neutrophils # Man Lymphocytes # (Manual) Monocytes # (Manual) PT INR APTT Heparin Anti-Xa Level POC ABG pH POC ABG pCO2 POC ABG pO2 Sodium Potassium 3.3 L D Chloride Carbon Dioxide 33 H BUN Creatinine < 0.2 L Glucose 145 H POC Glucose 149 H 123 H Calcium 7.8 L Phosphorus 2.40 L TIBC Total Bilirubin Direct Bilirubin Alkaline Phosphatase C-Reactive Protein NT-Pro-B Natriuret Pep Total Protein Albumin Lipase Vitamin B12 Folate Ur Specific [place] Vancomycin Trough Crossmatch 07/10/18 07/10/18 07/10/18 04:32 05:45 05:50 WBC 12.4 H RBC 2.83 L Hgb 8.6 L Hct 24.8 L MCHC 35 H RDW 15.3 H Plt Count 477 H Seg Neuts % (Manual) Lymphocytes % (Manual) Monocytes % (Manual) Seg Neutrophils # Man Lymphocytes # (Manual) Monocytes # (Manual) PT INR APTT Heparin Anti-Xa Level POC ABG pH POC ABG pCO2 48.5 H POC ABG pO2 Sodium Potassium Chloride Carbon Dioxide BUN Creatinine Glucose POC Glucose 124 H Calcium Phosphorus TIBC Total Bilirubin Direct Bilirubin Alkaline Phosphatase C-Reactive Protein NT-Pro-B Natriuret Pep Total Protein Albumin Lipase Vitamin B12 Folate Ur Specific [place] Vancomycin Trough Crossmatch 07/10/18 07/10/18 07/10/18 05:50 10:11 11:52 WBC RBC Hgb Hct MCHC RDW Plt Count Seg Neuts % (Manual) Lymphocytes % (Manual) Monocytes % (Manual) Seg Neutrophils # Man Lymphocytes # (Manual) Monocytes # (Manual) PT INR APTT Heparin Anti-Xa Level < 0.10 L POC ABG pH POC ABG pCO2 POC ABG pO2 Sodium Potassium Chloride Carbon Dioxide BUN Creatinine < 0.2 L Glucose 131 H POC Glucose 126 H Calcium 8.3 L Phosphorus TIBC Total Bilirubin Direct Bilirubin Alkaline Phosphatase C-Reactive Protein NT-Pro-B Natriuret Pep Total Protein 4.8 L Albumin 1.9 L Lipase Vitamin B12 Folate Ur Specific [place] Vancomycin Trough Crossmatch 07/10/18 07/10/18 07/10/18 17:17 18:41 23:24 WBC RBC Hgb Hct MCHC RDW Plt Count Seg Neuts % (Manual) Lymphocytes % (Manual) Monocytes % (Manual) Seg Neutrophils # Man Lymphocytes # (Manual) Monocytes # (Manual) PT INR APTT Heparin Anti-Xa Level POC ABG pH POC ABG pCO2 POC ABG pO2 Sodium Potassium Chloride Carbon Dioxide BUN Creatinine Glucose POC Glucose 155 H 134 H 175 H Calcium Phosphorus TIBC Total Bilirubin Direct Bilirubin Alkaline Phosphatase C-Reactive Protein NT-Pro-B Natriuret Pep Total Protein Albumin Lipase Vitamin B12 Folate Ur Specific [place] Vancomycin Trough Crossmatch 07/11/18 07/11/18 07/11/18 05:10 05:13 05:13 WBC 17.7 H RBC 3.19 L Hgb 9.4 L Hct 28.1 L MCHC RDW Plt Count 528 H Seg Neuts % (Manual) 71.0 H Lymphocytes % (Manual) 10.0 L Monocytes % (Manual) 9.0 H Seg Neutrophils # Man 12.6 H Lymphocytes # (Manual) Monocytes # (Manual) 1.6 H PT INR APTT Heparin Anti-Xa Level 0.28 L POC ABG pH POC ABG pCO2 POC ABG pO2 Sodium Potassium Chloride Carbon Dioxide BUN Creatinine Glucose POC Glucose 135 H Calcium Phosphorus TIBC Total Bilirubin Direct Bilirubin Alkaline Phosphatase C-Reactive Protein NT-Pro-B Natriuret Pep Total Protein Albumin Lipase Vitamin B12 Folate Ur Specific [place] Vancomycin Trough Crossmatch 07/11/18 07/11/18 07/11/18 05:13 11:33 12:10 WBC RBC Hgb Hct MCHC RDW Plt Count Seg Neuts % (Manual) Lymphocytes % (Manual) Monocytes % (Manual) Seg Neutrophils # Man Lymphocytes # (Manual) Monocytes # (Manual) PT INR APTT Heparin Anti-Xa Level < 0.10 L POC ABG pH POC ABG pCO2 POC ABG pO2 Sodium Potassium Chloride Carbon Dioxide BUN Creatinine < 0.2 L Glucose 137 H POC Glucose 153 H Calcium Phosphorus TIBC Total Bilirubin Direct Bilirubin Alkaline Phosphatase 149 H C-Reactive Protein NT-Pro-B Natriuret Pep Total Protein 5.5 L Albumin 2.5 L Lipase Vitamin B12 Folate Ur Specific [place] Vancomycin Trough Crossmatch 07/11/18 07/11/18 07/11/18 16:00 18:12 23:45 WBC RBC Hgb Hct MCHC RDW Plt Count Seg Neuts % (Manual) Lymphocytes % (Manual) Monocytes % (Manual) Seg Neutrophils # Man Lymphocytes # (Manual) Monocytes # (Manual) PT 15.1 H INR APTT Heparin Anti-Xa Level POC ABG pH POC ABG pCO2 POC ABG pO2 Sodium Potassium Chloride Carbon Dioxide BUN Creatinine Glucose POC Glucose 146 H 149 H Calcium Phosphorus TIBC Total Bilirubin Direct Bilirubin Alkaline Phosphatase C-Reactive Protein NT-Pro-B Natriuret Pep Total Protein Albumin Lipase Vitamin B12 Folate Ur Specific [place] Vancomycin Trough Crossmatch 07/12/18 07/12/18 07/12/18 04:16 04:16 04:16 WBC RBC Hgb Hct MCHC RDW Plt Count 533 H Seg Neuts % (Manual) Lymphocytes % (Manual) Monocytes % (Manual) Seg Neutrophils # Man Lymphocytes # (Manual) Monocytes # (Manual) PT 15.6 H INR 1.17 H APTT Heparin Anti-Xa Level POC ABG pH POC ABG pCO2 POC ABG pO2 Sodium Potassium 3.2 L Chloride Carbon Dioxide BUN Creatinine < 0.2 L Glucose 148 H POC Glucose Calcium Phosphorus TIBC Total Bilirubin Direct Bilirubin Alkaline Phosphatase 168 H C-Reactive Protein NT-Pro-B Natriuret Pep Total Protein 6.1 L Albumin 2.4 L Lipase Vitamin B12 Folate Ur Specific [place] Vancomycin Trough Crossmatch 07/12/18 05:19 WBC RBC Hgb Hct MCHC RDW Plt Count Seg Neuts % (Manual) Lymphocytes % (Manual) Monocytes % (Manual) Seg Neutrophils # Man Lymphocytes # (Manual) Monocytes # (Manual) PT INR APTT Heparin Anti-Xa Level POC ABG pH POC ABG pCO2 POC ABG pO2 Sodium Potassium Chloride Carbon Dioxide BUN Creatinine Glucose POC Glucose 151 H Calcium Phosphorus TIBC Total Bilirubin Direct Bilirubin Alkaline Phosphatase C-Reactive Protein NT-Pro-B Natriuret Pep Total Protein Albumin Lipase Vitamin B12 Folate Ur Specific [place] Vancomycin Trough Crossmatch
--- NOTE | 2018-07-12 11:16 | Progress Note ---
Assessment and Plan Cultures: 06/26/2018 Blood culture no growth 07/03/2018 Blood culture no growth so far 07/04/2018 Sputum usual respiratory kait Assessment: 58 y/o female with history of HTN, tobacco dependence admitted on 06/24/2018 due to a week history of severe abdominal pain, constipation and nausea. 1) Severe sepsis: Resolved. Etiology most likely peritonitis from diverticular perforation and leukemoid reaction likely due to bowel ischemia. 2) Acute fecal peritonitis from diverticular perforation/abscess: went to OR on 06/24/2018 for Exploratory laparotomy, Ezequiel's for perforated sigmoid diverticulitis with purulent peritonitis. 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 No pulsation in SMA, small bowel resection, partial colon resection, temporary abdominal closure with abthera vac on 07/04. Now again to OR on 07/07/2018, was found to have an 8 cm area of necrotic small bowel. S/P Abdominal re-exploration and washout, cholecystectomy, primary closure of abdominal wall 07/10/18. Completed empiric abx. 3) Bilateral pneumonia: ?aspiration v/s HAP on cefepime and vancomycin. CTA showed scattered infiltrates identified in both lungs, this is most prominent in the right lower lung, slight bilateral effusions, no evidence of pulmonary arterial emboli. 4) Acute hypoxemic resp failure: extubated, doing well. 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 s/p surgery as above. On anticoagulation. Recommendations: - will d/c Cefepime, fluconazole and Flagyl. Completed several days of abx, now abdomen closed, improving clinically. - leucocytosis is likely reactive - will follow along MD [facility] C: [phone] O: [phone] F: [phone] Subjective Date of service: 07/12/18 Principal diagnosis: small bowel ischemiaperitonitis/penumonia Interval history: No fever. Denies any complaints. She is having some stool output from the ostomy. Denies abdominal pain. Objective - Exam Narrative Exam: Physical Exam: Constitutional: awake, no distress Head, Ears, Nose: Normocephalic, atraumatic. External ears, nose normal Eyes: Conjunctivae/corneas clear. No icterus. No ptosis. Neck: supple, no meningeal signs Oral: no thrush, no ulcers Cardiovascular: S1, S2 normal. Respiratory: Good air entry, clear to auscultation bilaterally GI: soft, colostomy +, midline dressing +, bowel sounds + Musculoskeletal: No pedal edema, no cyanosis. Skin: No rash or abscess Hem/Lymphatic: No palpable cervical or supraclavicular nodes. No lymphangitis Psych: no agitation Neurological: awake, alert, oriented - Constitutional Vitals: Vital Signs Temp Pulse Resp BP Pulse Ox 98.2 F 109 H 27 H 123/79 83 L 07/12/18 07:59 07/12/18 10:45 07/12/18 10:45 07/12/18 10:45 07/12/18 10:45 Temperature -Last 24 Hours Temperature 98.2 F Temperature 98.7 F Temperature 99.4 F Temperature 98.1 F Temperature 97.4 F Temperature 97.3 F Temperature 98.8 F - Labs CBC & Chem 7: 07/12/18 04:16 07/12/18 04:16 Labs: Abnormal lab results 07/11/18 07/11/18 07/11/18 Range/Units 11:33 12:10 16:00 Plt Count (140-440) K/mm3 PT 15.1 H (12.2-14.9) Sec. INR (0.87-1.13) Heparin Anti-Xa Level < 0.10 L (0.3-0.7) U.I./ml Potassium (3.6-5.0) mmol/L Creatinine (0.7-1.2) mg/dL Glucose (65-100) mg/dL POC Glucose 153 H (70-105) Alkaline Phosphatase (35-129) units/L Total Protein (6.3-8.2) g/dL Albumin (3.9-5) g/dL 07/11/18 07/11/18 07/12/18 Range/Units 18:12 23:45 04:16 Plt Count 533 H (140-440) K/mm3 PT (12.2-14.9) Sec. INR (0.87-1.13) Heparin Anti-Xa Level (0.3-0.7) U.I./ml Potassium (3.6-5.0) mmol/L Creatinine (0.7-1.2) mg/dL Glucose (65-100) mg/dL POC Glucose 146 H 149 H (70-105) Alkaline Phosphatase (35-129) units/L Total Protein (6.3-8.2) g/dL Albumin (3.9-5) g/dL 07/12/18 07/12/18 07/12/18 Range/Units 04:16 04:16 05:19 Plt Count (140-440) K/mm3 PT 15.6 H (12.2-14.9) Sec. INR 1.17 H (0.87-1.13) Heparin Anti-Xa Level (0.3-0.7) U.I./ml Potassium 3.2 L (3.6-5.0) mmol/L Creatinine < 0.2 L (0.7-1.2) mg/dL Glucose 148 H (65-100) mg/dL POC Glucose 151 H (70-105) Alkaline Phosphatase 168 H (35-129) units/L Total Protein 6.1 L (6.3-8.2) g/dL Albumin 2.4 L (3.9-5) g/dL
--- NOTE | 2018-07-12 12:30 | Progress Note ---
Assessment and Plan 58 yo F s/p 1) Abdominal re-exploration and washout, cholecystectomy, primary closure of abdominal wall 07/10/18, POD 2 2) exploratory laparotomy, small bowel resection with primary anastamosis, right hemicolectomy with ileocolonic anastamosis, temporary closure of abdomen with abthera vac 07/07/18 - POD#5; 3) Exploratory laparotomy, small bowel resection, partial colon resection, temporary abdominal closure with abthera vac 07/04/18, POD8 ; and 4) Exploratory laparotomy, Ezequiel's procedure 06/24/18 Problem list: 1. 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 Respiratory failure 5. COPD Plan: 1. Clamp trial for NGT until 1500 - instructions given to RN 2. NPO until end of clamp trial 3. TPN 4. prn IV pain control 5. continue heparin gtt - will start coumadin per vasc surgery recs when patient on PO diet 6. incentive spirometry/pulm toilet 7. IV abx per ID 8. GI ppx 9. dc pizano 10. continue OOB/PT 11. wound care consult for ostomy teaching Ok to downgrade when cleared by pulm Subjective Date of service: 07/12/18 Narrative: Pt seen and examined. No acute complaints. No f/c. No cp, sob. Abd pain is controlled. Speech eval done and pureed diet recommended. Patient states ostomy is functioning. Objective Vital Signs - 12hr 07/12/18 07/12/18 07/12/18 00:31 00:45 01:01 Temperature Pulse Rate 107 H 108 H 113 H Pulse Rate [ Anterior Throughout] Pulse Rate [ From Monitor] Respiratory 27 H 25 H 29 H Rate Respiratory Rate [Anterior Throughout] Blood Pressure 149/72 149/72 123/90 O2 Sat by Pulse 98 98 93 Oximetry 07/12/18 07/12/18 07/12/18 01:15 01:31 01:45 Temperature Pulse Rate 106 H 109 H 110 H Pulse Rate [ Anterior Throughout] Pulse Rate [ From Monitor] Respiratory 27 H 27 H 27 H Rate Respiratory Rate [Anterior Throughout] Blood Pressure 123/90 123/90 123/90 O2 Sat by Pulse 98 97 97 Oximetry 07/12/18 07/12/18 07/12/18 02:00 02:15 02:31 Temperature Pulse Rate 110 H 110 H 110 H Pulse Rate [ Anterior Throughout] Pulse Rate [ From Monitor] Respiratory 27 H 25 H 30 H Rate Respiratory Rate [Anterior Throughout] Blood Pressure 148/69 148/69 148/69 O2 Sat by Pulse 96 99 98 Oximetry 07/12/18 07/12/18 07/12/18 02:45 03:00 03:15 Temperature Pulse Rate 111 H 106 H 105 H Pulse Rate [ Anterior Throughout] Pulse Rate [ From Monitor] Respiratory 29 H 31 H 35 H Rate Respiratory Rate [Anterior Throughout] Blood Pressure 148/69 140/77 148/69 O2 Sat by Pulse 98 99 98 Oximetry 07/12/18 07/12/18 07/12/18 03:31 03:45 04:00 Temperature 98.7 F Pulse Rate 108 H 107 H 100 H Pulse Rate [ Anterior Throughout] Pulse Rate [ 108 H From Monitor] Respiratory 31 H 29 H 19 Rate Respiratory Rate [Anterior Throughout] Blood Pressure 148/69 148/69 143/86 O2 Sat by Pulse 99 97 96 Oximetry 07/12/18 07/12/18 07/12/18 04:15 04:30 04:45 Temperature Pulse Rate 106 H 108 H 111 H Pulse Rate [ Anterior Throughout] Pulse Rate [ From Monitor] Respiratory 30 H 30 H 31 H Rate Respiratory Rate [Anterior Throughout] Blood Pressure 143/86 143/86 143/86 O2 Sat by Pulse 96 96 Oximetry 07/12/18 07/12/18 07/12/18 05:00 05:15 05:31 Temperature Pulse Rate 107 H 104 H 106 H Pulse Rate [ Anterior Throughout] Pulse Rate [ From Monitor] Respiratory 29 H 31 H 28 H Rate Respiratory Rate [Anterior Throughout] Blood Pressure 143/84 143/84 143/84 O2 Sat by Pulse 94 96 98 Oximetry 07/12/18 07/12/18 07/12/18 05:45 06:00 06:15 Temperature Pulse Rate 110 H 114 H 108 H Pulse Rate [ Anterior Throughout] Pulse Rate [ From Monitor] Respiratory 31 H 35 H 27 H Rate Respiratory Rate [Anterior Throughout] Blood Pressure 143/84 140/81 143/84 O2 Sat by Pulse 94 89 93 Oximetry 07/12/18 07/12/18 07/12/18 06:31 06:45 07:00 Temperature Pulse Rate 106 H 109 H 108 H Pulse Rate [ Anterior Throughout] Pulse Rate [ From Monitor] Respiratory 27 H 24 23 Rate Respiratory Rate [Anterior Throughout] Blood Pressure 143/84 143/84 141/86 O2 Sat by Pulse 92 96 97 Oximetry 07/12/18 07/12/18 07/12/18 07:15 07:31 07:45 Temperature Pulse Rate 114 H 109 H 109 H Pulse Rate [ Anterior Throughout] Pulse Rate [ From Monitor] Respiratory 24 24 24 Rate Respiratory Rate [Anterior Throughout] Blood Pressure 141/86 141/86 141/86 O2 Sat by Pulse 95 96 96 Oximetry 07/12/18 07/12/18 07/12/18 07:53 07:55 07:59 Temperature 98.2 F Pulse Rate Pulse Rate [ 115 H Anterior Throughout] Pulse Rate [ From Monitor] Respiratory Rate Respiratory 28 H Rate [Anterior Throughout] Blood Pressure O2 Sat by Pulse 95 Oximetry 07/12/18 07/12/18 07/12/18 08:00 08:15 08:30 Temperature Pulse Rate 109 H 121 H 123 H Pulse Rate [ Anterior Throughout] Pulse Rate [ From Monitor] Respiratory 24 26 H 24 Rate Respiratory Rate [Anterior Throughout] Blood Pressure 144/83 144/83 143/84 O2 Sat by Pulse 94 96 91 Oximetry 07/12/18 07/12/18 07/12/18 08:45 09:01 09:15 Temperature Pulse Rate 116 H 113 H 109 H Pulse Rate [ Anterior Throughout] Pulse Rate [ From Monitor] Respiratory 27 H 26 H 24 Rate Respiratory Rate [Anterior Throughout] Blood Pressure 144/83 142/79 142/79 O2 Sat by Pulse 96 92 100 Oximetry 07/12/18 07/12/18 07/12/18 09:31 09:45 10:00 Temperature Pulse Rate 119 H 123 H 120 H Pulse Rate [ Anterior Throughout] Pulse Rate [ From Monitor] Respiratory 28 H 30 H 29 H Rate Respiratory Rate [Anterior Throughout] Blood Pressure 142/79 142/79 123/79 O2 Sat by Pulse 98 94 89 Oximetry 07/12/18 07/12/18 07/12/18 10:15 10:31 10:45 Temperature Pulse Rate 115 H 113 H 109 H Pulse Rate [ Anterior Throughout] Pulse Rate [ From Monitor] Respiratory 30 H 28 H 27 H Rate Respiratory Rate [Anterior Throughout] Blood Pressure 122/78 122/78 123/79 O2 Sat by Pulse 94 95 83 L Oximetry - General physical appearance Narrative Exam: Gen: AAOx3. NAD ENT: NGT with clear bilious drainage CV: s1, S2+ Resp: even and unlabored Abd: soft, NT, ND. Incision c/d/i - [place] dressing applied. ostomy pink with green liquid stool in bag - Labs 07/12/18 04:16 07/12/18 04:16 Diabetes panel 07/12/18 Range/Units 04:16 Sodium 144 (137-145) mmol/L Potassium 3.2 L (3.6-5.0) mmol/L Chloride 103.7 (98-107) mmol/L Carbon Dioxide 28 (22-30) mmol/L BUN 14 (7-17) mg/dL Creatinine < 0.2 L (0.7-1.2) mg/dL Glucose 148 H (65-100) mg/dL Calcium 8.6 (8.4-10.2) mg/dL AST 26 (5-40) units/L ALT 32 (7-56) units/L Alkaline Phosphatase 168 H (35-129) units/L Total Protein 6.1 L (6.3-8.2) g/dL Albumin 2.4 L (3.9-5) g/dL Calcium panel 07/12/18 Range/Units 04:16 Calcium 8.6 (8.4-10.2) mg/dL Phosphorus 2.60 (2.5-4.5) mg/dL Albumin 2.4 L (3.9-5) g/dL Pituitary panel 07/12/18 Range/Units 04:16 Sodium 144 (137-145) mmol/L Potassium 3.2 L (3.6-5.0) mmol/L Chloride 103.7 (98-107) mmol/L Carbon Dioxide 28 (22-30) mmol/L BUN 14 (7-17) mg/dL Creatinine < 0.2 L (0.7-1.2) mg/dL Glucose 148 H (65-100) mg/dL Calcium 8.6 (8.4-10.2) mg/dL Adrenal panel 07/12/18 Range/Units 04:16 Sodium 144 (137-145) mmol/L Potassium 3.2 L (3.6-5.0) mmol/L Chloride 103.7 (98-107) mmol/L Carbon Dioxide 28 (22-30) mmol/L BUN 14 (7-17) mg/dL Creatinine < 0.2 L (0.7-1.2) mg/dL Glucose 148 H (65-100) mg/dL Calcium 8.6 (8.4-10.2) mg/dL Total Bilirubin 0.40 (0.1-1.2) mg/dL AST 26 (5-40) units/L ALT 32 (7-56) units/L Alkaline Phosphatase 168 H (35-129) units/L Total Protein 6.1 L (6.3-8.2) g/dL Albumin 2.4 L (3.9-5) g/dL
[2018-07-12] MEDS: COUMADIN PO SCH (18:04)
[2018-07-12] MEDS: BROVANA NEBU IH SCH (20:22)
[2018-07-12] MEDS: ZOFRAN IV PRN (22:21)
[2018-07-12] MEDS: TPN ADULT 1,800 ML IV SCH (22:27)
[2018-07-13] MEDS: ZOFRAN IV PRN (04:17)
[2018-07-13] MEDS: DILAUDID IV PRN ×4 (04:20→20:16)
[2018-07-13 05:22] LABS: Hematocrit 32.2 % (30.3-42.9); Hemoglobin 10.9 gm/dl (10.1-14.3)
[2018-07-13 05:30] LABS: INR 1.31 (0.87-1.13)
[2018-07-13 05:45] LABS: BUN/Creatinine Ratio 85; Blood Urea Nitrogen 17 mg/dL (7-17); Calcium 8.8 mg/dL (8.4-10.2); Hemolysis Index 1
[2018-07-13] MEDS: TPN ADULT 1,800 ML IV SCH (08:28)
--- NOTE | 2018-07-13 08:52 | Progress Note ---
Assessment and Plan Cultures: 06/26/2018 Blood culture no growth 07/03/2018 Blood culture no growth so far 07/04/2018 Sputum usual respiratory kait Assessment: 58 y/o female with history of HTN, tobacco dependence admitted on 06/24/2018 due to a week history of severe abdominal pain, constipation and nausea. 1) Severe sepsis: Resolved. Etiology most likely peritonitis from diverticular perforation and leukemoid reaction likely due to bowel ischemia. 2) Acute fecal peritonitis from diverticular perforation/abscess: went to OR on 06/24/2018 for Exploratory laparotomy, Ezequiel's for perforated sigmoid diverticulitis with purulent peritonitis. 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 No pulsation in SMA, small bowel resection, partial colon resection, temporary abdominal closure with abthera vac on 07/04. Now again to OR on 07/07/2018, was found to have an 8 cm area of necrotic small bowel. S/P Abdominal re-exploration and washout, cholecystectomy, primary closure of abdominal wall 07/10/18. Completed empiric abx. 3) Bilateral pneumonia: ?aspiration v/s HAP. CTA showed scattered infiltrates identified in both lungs, this is most prominent in the right lower lung, slight bilateral effusions, no evidence of pulmonary arterial emboli. 4) Acute hypoxemic resp failure: extubated, doing well. 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 s/p surgery as above. On anticoagulation. Recommendations: -monitor off antibiotics -CBC ordered for tomorrow [facility] M: [phone] O:[phone] Subjective Date of service: 07/13/18 Principal diagnosis: small bowel ischemiaperitonitis/penumonia Interval history: Patient seen and examined. Reports no generalized pain, weakness or SOB. No fevers. Objective - Exam Narrative Exam: Constitutional: awake, alert, No acute distress Head, Ears, Nose: Normocephalic, atraumatic. External ears, nose normal Eyes: Conjunctivae/corneas clear. No icterus. No ptosis. Neck: supple, no meningeal signs Oral: no thrush, no ulcers Cardiovascular: S1, S2 normal. Respiratory: Good air entry, clear to auscultation bilaterally GI: soft, colostomy +, midline dressing +, bowel sounds + Musculoskeletal: No pedal edema, no cyanosis. Skin: No rash or abscess Hem/Lymphatic: No palpable cervical or supraclavicular nodes. No lymphangitis Psych: mood good, pleasant Neurological: awake, alert, oriented - Constitutional Vitals: Vital Signs Temp Pulse Resp BP Pulse Ox 98.9 F 124 H 18 105/69 95 07/13/18 04:30 07/13/18 04:30 07/13/18 04:30 07/13/18 04:30 07/13/18 04:30 Temperature -Last 24 Hours Temperature 98.9 F Temperature 99.2 F Temperature 99.2 F Temperature 98.3 F - Labs CBC & Chem 7: 07/13/18 04:07 07/13/18 04:07 Labs: Abnormal lab results 07/12/18 07/12/18 07/13/18 Range/Units 11:37 22:49 04:07 Plt Count 520 H (140-440) K/mm3 PT (12.2-14.9) Sec. INR (0.87-1.13) Potassium (3.6-5.0) mmol/L Creatinine (0.7-1.2) mg/dL Glucose (65-100) mg/dL POC Glucose 152 H 141 H (70-105) 07/13/18 07/13/18 Range/Units 04:07 04:07 Plt Count (140-440) K/mm3 PT 17.1 H (12.2-14.9) Sec. INR 1.31 H (0.87-1.13) Potassium 3.1 L (3.6-5.0) mmol/L Creatinine 0.2 L (0.7-1.2) mg/dL Glucose 110 H (65-100) mg/dL POC Glucose (70-105)
[2018-07-13] MEDS: HABITROL TD SCH (09:56)
[2018-07-13] MEDS: PEPCID IV SCH ×2 (09:57→21:24)
[2018-07-13] MEDS: SODIUM CHLORIDE FLUSH SYRINGE 10 ML IV SCH ×2 (09:57→23:36)
--- NOTE | 2018-07-13 10:06 | Progress Note ---
Assessment and Plan - Patient Problems (1) Perforated viscus Current Visit: Yes Status: Acute Plan to address problem: 58 yo F s/p 1) Abdominal re-exploration and washout, cholecystectomy, primary closure of abdominal wall 07/10/18, POD 3 2) exploratory laparotomy, small bowel resection with primary anastamosis, right hemicolectomy with ileocolonic anastamosis, temporary closure of abdomen with abthera vac 07/07/18 - POD#6; 3) Exploratory laparotomy, small bowel resection, partial colon resection, temporary abdominal closure with abthera vac 07/04/18, POD9 ; and 4) Exploratory laparotomy, Ezequiel's procedure 06/24/18 Problem list: 1. 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 Respiratory failure 5. COPD Plan: 1. advance to full liquid diet with Ensure shakes 2. TPN 3. prn IV pain control 4. continue heparin gtt - will start coumadin per vasc surgery recs when patient on PO diet. Ok to start coumadin at anytime now from our standpoint 5. incentive spirometry/pulm toilet 6. IV abx per ID 7. GI ppx 8. dc pizano 9. continue OOB/PT 10. wound care consult for ostomy teaching - I will call [facility] today Please call with questions. Subjective Date of service: 07/13/18 Patient Reports: Positive: no new complaints, pain is less, tolerating liquids well. Negative: nausea, vomiting Objective Vital Signs - 12hr 07/12/18 07/13/18 07/13/18 22:57 00:06 01:46 Temperature 99.2 F Pulse Rate 129 H Respiratory 22 Rate Blood Pressure 126/69 Blood Pressure [Left] O2 Sat by Pulse 95 95 95 Oximetry 07/13/18 07/13/18 07/13/18 01:51 04:30 09:38 Temperature 99.2 F 98.9 F Pulse Rate 126 H 124 H Respiratory 22 18 Rate Blood Pressure 105/69 Blood Pressure 126/69 [Left] O2 Sat by Pulse 95 95 96 Oximetry - General physical appearance no distress, no pain - Eyes normal occular movement - Respiratory normal expansion, other (slight increased work of breathing) - Abdomen soft, not tender, bowel sounds hypoactive, distended (mild), not guarding, not rigid, surgical scars (dressing dry), other (ostomy functioning) - Integumentary no rash, no growths, no abnormal pigmentation - Psychiatric oriented to time, oriented to person, oriented to place, speech is normal, memory intact - Labs 07/13/18 04:07 07/13/18 04:07 Diabetes panel 07/13/18 Range/Units 04:07 Sodium 142 (137-145) mmol/L Potassium 3.1 L (3.6-5.0) mmol/L Chloride 103.8 (98-107) mmol/L Carbon Dioxide 27 (22-30) mmol/L BUN 17 (7-17) mg/dL Creatinine 0.2 L (0.7-1.2) mg/dL Glucose 110 H (65-100) mg/dL Calcium 8.8 (8.4-10.2) mg/dL Calcium panel 07/13/18 Range/Units 04:07 Calcium 8.8 (8.4-10.2) mg/dL Phosphorus 3.00 (2.5-4.5) mg/dL Pituitary panel 07/13/18 Range/Units 04:07 Sodium 142 (137-145) mmol/L Potassium 3.1 L (3.6-5.0) mmol/L Chloride 103.8 (98-107) mmol/L Carbon Dioxide 27 (22-30) mmol/L BUN 17 (7-17) mg/dL Creatinine 0.2 L (0.7-1.2) mg/dL Glucose 110 H (65-100) mg/dL Calcium 8.8 (8.4-10.2) mg/dL Adrenal panel 07/13/18 Range/Units 04:07 Sodium 142 (137-145) mmol/L Potassium 3.1 L (3.6-5.0) mmol/L Chloride 103.8 (98-107) mmol/L Carbon Dioxide 27 (22-30) mmol/L BUN 17 (7-17) mg/dL Creatinine 0.2 L (0.7-1.2) mg/dL Glucose 110 H (65-100) mg/dL Calcium 8.8 (8.4-10.2) mg/dL
[2018-07-13] MEDS: PULMICORT IH SCH ×2 (11:16→19:37)
[2018-07-13] MEDS: BROVANA NEBU IH SCH ×2 (11:17→19:37)
--- NOTE | 2018-07-13 12:03 | Progress Note ---
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 Acute mesenteric ischemic event is being managed by general surgery with appropriate bowel resections as the bowel was already and the SMA and SMV thrombus and the time course involved made thrombectomy not beneficial. Was ultimately closed after extensive SB resection and right hemicolectomy and cholecystectomy. Distal aortic thrombus. The patient has preserved pulses to the lower extremi ties and has no signs of ischemia. Given patient's lack of symptoms and recent surgeries, recommend treatment with anticoagulation. Although the etiology of the thromboembolic event is unclear, suspect cardiac etiology of thrombus given its size. Given the unclear cause, patient will likely need anticoagulation for life. Consider SHAUNA once the patient's acute issues improve. Subjective Date of service: 07/13/18 Principal diagnosis: small bowel ischemiaperitonitis/penumonia Interval history: Palpable pedal pulses. Can move toes, feet warm, and sensation intact. No pain per patient. Objective - Constitutional Vitals: Vital Signs - 12hr 07/13/18 07/13/18 07/13/18 00:06 01:46 01:51 Temperature 99.2 F 99.2 F Pulse Rate 129 H 126 H Pulse Rate [ Anterior Throughout] Respiratory 22 22 Rate Respiratory Rate [Anterior Throughout] Blood Pressure 126/69 Blood Pressure 126/69 [Left] O2 Sat by Pulse 95 95 95 Oximetry 07/13/18 07/13/18 07/13/18 04:30 07:30 09:38 Temperature 98.9 F 98.2 F Pulse Rate 124 H 113 H Pulse Rate [ Anterior Throughout] Respiratory 18 18 Rate Respiratory Rate [Anterior Throughout] Blood Pressure 105/69 Blood Pressure 108/66 [Left] O2 Sat by Pulse 95 96 Oximetry 07/13/18 07/13/18 07/13/18 11:13 11:18 11:29 Temperature Pulse Rate Pulse Rate [ 103 H 106 H Anterior Throughout] Respiratory Rate Respiratory 22 20 Rate [Anterior Throughout] Blood Pressure Blood Pressure [Left] O2 Sat by Pulse 98 Oximetry General appearance: Present: no acute distress - EENT Eyes: EOM intact ENT: hearing intact - Respiratory Respiratory effort: normal Extremities: no ischemia, pulses intact, normal temperature, normal color - Psychiatric Psychiatric: appropriate mood/affect, cooperative - Labs CBC & Chem 7: 07/13/18 04:07 07/13/18 04:07 Labs: Abnormal lab results 07/12/18 07/12/18 07/13/18 Range/Units 11:37 22:49 04:07 Plt Count 520 H (140-440) K/mm3 PT (12.2-14.9) Sec. INR (0.87-1.13) Potassium (3.6-5.0) mmol/L Creatinine (0.7-1.2) mg/dL Glucose (65-100) mg/dL POC Glucose 152 H 141 H (70-105) 07/13/18 07/13/18 Range/Units 04:07 04:07 Plt Count (140-440) K/mm3 PT 17.1 H (12.2-14.9) Sec. INR 1.31 H (0.87-1.13) Potassium 3.1 L (3.6-5.0) mmol/L Creatinine 0.2 L (0.7-1.2) mg/dL Glucose 110 H (65-100) mg/dL POC Glucose (70-105) Medications & Allergies - Medications Allergies/Adverse Reactions: Allergies No Known Allergies Allergy (Unverified 06/24/18 10:41) Home Medications: Home Medications Medication Instructions Recorded Confirmed Last Taken Type No Known Home Medications [No 06/27/18 06/27/18 Unknown History Reported Home Medications] Active Medications: Generic Name Dose Route Start Last Admin Trade Name Freq PRN Reason Stop Dose Admin Albuterol 2.5 mg 07/02/18 07:44 Proventil IH Q4HRT PRN Shortness Of Breath Arformoterol Tartrate 15 mcg 07/12/18 20:00 07/13/18 11:17 Brovana Nebu IH 15 mcg Q12HRT MAURICIO Administration Budesonide 0.5 mg 07/02/18 20:00 07/13/18 11:16 Pulmicort IH 0.5 mg Q12HRT MAURICIO Administration Famotidine 20 mg 07/11/18 10:00 07/13/18 09:57 Pepcid IV 20 mg BID MAURICIO Administration Hydromorphone HCl 1 mg 07/11/18 11:11 07/13/18 09:59 Dilaudid IV 1 mg Q4H PRN Administration Pain , Severe (7-10) Hydrophilic Ointment 1 applic 05/28/19 18:23 Vaseline Lip Therapy TP Q2HR PRN Dry Lips Heparin Sodium/Sodium Chloride 25,000 unit in 500 mls @ 15 mls/hr 07/07/18 14:00 07/13/18 00:14 Heparin/ 0.45% Nacl-25,000 Unit/500 Ml IV 1,650 units/hr TITR MAURICIO 33 mls/hr Titration Protocol 750 UNITS/HR Amino Acids/Electrolytes/Dextrose 1,800 mls @ 75 mls/hr 07/12/18 20:00 07/13/18 08:28 Tpn Adult IV 07/13/18 19:59 75 mls/hr DAILY@2000 [facility] Administration Protocol Multi-Ingred Cream/Lotion/Oil/Oint 1 applic 07/04/18 18:23 Artificial Tears Ophth Oint OU Q4HR PRN Dry Eye(s) Naloxone HCl 0.1 mg 06/24/18 18:55 Narcan 0.4 Mg/1 Ml IV Q2MIN PRN Res Rate </= 8 or 02 SAT < 92% Nicotine 14 mg 06/25/18 10:00 07/13/18 09:56 Habitrol TD 14 mg QDAY MAURICIO Administration Ondansetron HCl 4 mg 06/24/18 14:00 07/13/18 04:17 Zofran IV 4 mg Q8H PRN Administration Nausea And Vomiting Sodium Chloride 10 ml 06/24/18 22:00 07/13/18 09:57 Sodium Chloride Flush Syringe 10 Ml IV 10 ml BID MAURICIO Administration Sodium Chloride 10 ml 06/24/18 14:00 07/07/18 16:07 Sodium Chloride Flush Syringe 10 Ml IV 10 ml PRN PRN Administration LINE FLUSH Warfarin Sodium 5 mg 07/12/18 17:00 07/12/18 18:04 Coumadin PO 5 mg DAILY@1700 [facility] Administration
--- NOTE | 2018-07-13 13:02 | Progress Note ---
Assessment and Plan 58 y/o female with acute respiratory failure secondary to volume overload and possible COPD exacerbation Post op from [facility] for perforated viscous, now with recurrent surgical issues and intubation, going back to OR today. 1. Continue nasal cannul and therapy for COPD. 2. Continue TPN, and now tolerating PO 3. Abx stopped 4. Reviewed IR note and they suggest SHAUNA when acute issues resolve, assuming they mean her abdomen. 5. Life long anticoagulation 6. Will continue to follow loosely on the floor Subjective Date of service: 07/13/18 Principal diagnosis: small bowel ischemiaperitonitis/penumonia Interval history: No acute events. Sitting up eating. Breathing is very stable Objective Vital Signs - 12hr 07/13/18 07/13/18 07/13/18 01:46 01:51 04:30 Temperature 99.2 F 99.2 F 98.9 F Pulse Rate 129 H 126 H 124 H Pulse Rate [ Anterior Throughout] Respiratory 22 22 18 Rate Respiratory Rate [Anterior Throughout] Blood Pressure 126/69 105/69 Blood Pressure 126/69 [Left] O2 Sat by Pulse 95 95 95 Oximetry 07/13/18 07/13/18 07/13/18 07:30 09:38 11:13 Temperature 98.2 F Pulse Rate 113 H Pulse Rate [ 103 H Anterior Throughout] Respiratory 18 Rate Respiratory 22 Rate [Anterior Throughout] Blood Pressure Blood Pressure 108/66 [Left] O2 Sat by Pulse 96 Oximetry 07/13/18 07/13/18 11:18 11:29 Temperature Pulse Rate Pulse Rate [ 106 H Anterior Throughout] Respiratory Rate Respiratory 20 Rate [Anterior Throughout] Blood Pressure Blood Pressure [Left] O2 Sat by Pulse 98 Oximetry Constitutional: no acute distress, alert Eyes: non-icteric ENT: oropharynx moist, other (ETT in position) Neck: supple, no JVD Effort: normal Ascultation: Bilateral: clear, diminished breath sounds, wheezes, rales Percussion: Bilateral: not dull Tactile fremitus: Bilateral: normal Cardiovascular: regular rate and rhythm Gastrointestinal: hypoactive bowel sounds, tender, other (mildly distended,open wound covered exploratory lab,colostomy) Integumentary: normal Extremities: no cyanosis, no edema Neurologic: normal mental status, non-focal exam Psychiatric: mood appropriate CBC and BMP: 07/13/18 04:07 07/13/18 04:07 ABG, PT/INR, D-dimer: ABG POC ABG pH 7.431 (7.35-7.45) 07/10/18 04:32 POC ABG pCO2 48.5 (35-45) H 07/10/18 04:32 POC ABG pO2 104 (80-105) 07/10/18 04:32 POC ABG HCO3 32.2 (22-26 mml/L) 07/10/18 04:32 POC ABG Total CO2 34 (23-27mmol/L) 07/10/18 04:32 POC ABG O2 Sat 98 07/10/18 04:32 PT/INR, D-dimer PT 17.1 Sec. (12.2-14.9) H 07/13/18 04:07 INR 1.31 (0.87-1.13) H 07/13/18 04:07 Abnormal lab findings: Abnormal Labs 06/24/18 06/24/18 06/24/18 11:18 11:19 11:19 WBC 19.0 H RBC Hgb Hct MCHC 35 H RDW Plt Count 457 H Seg Neuts % (Manual) 88.0 H Lymphocytes % (Manual) 2.0 L Monocytes % (Manual) Seg Neutrophils # Man 16.7 H Lymphocytes # (Manual) 0.4 L Monocytes # (Manual) PT 15.9 H INR 1.19 H APTT Heparin Anti-Xa Level POC ABG pH POC ABG pCO2 POC ABG pO2 Sodium 136 L Potassium 2.8 L* Chloride 96.7 L Carbon Dioxide BUN Creatinine 0.4 L Glucose 146 H POC Glucose Calcium Phosphorus TIBC Total Bilirubin 1.90 H Direct Bilirubin 1.5 H Alkaline Phosphatase 264 H C-Reactive Protein NT-Pro-B Natriuret Pep Total Protein Albumin 3.0 L Lipase 8 L Vitamin B12 Folate Ur Specific Farrell Vancomycin Trough Crossmatch 06/24/18 06/24/18 06/25/18 13:00 19:47 06:55 WBC 18.3 H RBC Hgb Hct MCHC 35 H RDW Plt Count 481 H Seg Neuts % (Manual) 88.0 H Lymphocytes % (Manual) 4.0 L Monocytes % (Manual) Seg Neutrophils # Man 16.1 H Lymphocytes # (Manual) 0.7 L Monocytes # (Manual) PT INR APTT Heparin Anti-Xa Level POC ABG pH POC ABG pCO2 POC ABG pO2 Sodium Potassium 3.5 L D Chloride Carbon Dioxide 21 L BUN Creatinine 0.3 L Glucose 166 H POC Glucose Calcium 7.4 L D Phosphorus TIBC Total Bilirubin Direct Bilirubin Alkaline Phosphatase C-Reactive Protein NT-Pro-B Natriuret Pep Total Protein Albumin Lipase Vitamin B12 Folate Ur Specific Farrell > 1.059 H Vancomycin Trough Crossmatch 06/25/18 06/26/18 06/26/18 06:55 11:54 11:54 WBC 19.9 H RBC 3.48 L Hgb Hct MCHC RDW Plt Count 583 H Seg Neuts % (Manual) Lymphocytes % (Manual) Monocytes % (Manual) Seg Neutrophils # Man Lymphocytes # (Manual) Monocytes # (Manual) PT INR APTT Heparin Anti-Xa Level POC ABG pH POC ABG pCO2 POC ABG pO2 Sodium 146 H Potassium 3.5 L Chloride 108.3 H 109.9 H Carbon Dioxide BUN Creatinine 0.4 L 0.3 L Glucose 159 H 153 H POC Glucose Calcium 7.7 L 8.2 L Phosphorus TIBC Total Bilirubin Direct Bilirubin Alkaline Phosphatase 152 H C-Reactive Protein NT-Pro-B Natriuret Pep Total Protein 5.3 L Albumin 2.1 L Lipase Vitamin B12 Folate Ur Specific Farrell Vancomycin Trough Crossmatch 06/26/18 06/26/18 06/27/18 14:12 20:37 02:04 WBC RBC Hgb Hct MCHC RDW Plt Count Seg Neuts % (Manual) Lymphocytes % (Manual) Monocytes % (Manual) Seg Neutrophils # Man Lymphocytes # (Manual) Monocytes # (Manual) PT INR APTT Heparin Anti-Xa Level POC ABG pH 7.471 H 7.458 H POC ABG pCO2 POC ABG pO2 74 L 70 L Sodium Potassium Chloride Carbon Dioxide BUN Creatinine Glucose POC Glucose Calcium Phosphorus TIBC Total Bilirubin Direct Bilirubin Alkaline Phosphatase C-Reactive Protein 25.70 H NT-Pro-B Natriuret Pep Total Protein Albumin Lipase Vitamin B12 Folate Ur Specific Farrell Vancomycin Trough Crossmatch 06/27/18 06/27/18 06/28/18 09:19 11:50 00:17 WBC 24.5 H 37.2 H RBC Hgb Hct MCHC RDW 15.4 H Plt Count 583 H 657 H Seg Neuts % (Manual) 98.0 H 88.5 H Lymphocytes % (Manual) 1.0 L 4.0 L Monocytes % (Manual) Seg Neutrophils # Man 24.0 H 32.9 H Lymphocytes # (Manual) 0.2 L Monocytes # (Manual) 1.1 H PT INR APTT Heparin Anti-Xa Level POC ABG pH POC ABG pCO2 POC ABG pO2 Sodium 146 H Potassium 3.5 L Chloride Carbon Dioxide BUN Creatinine 0.3 L Glucose 176 H POC Glucose Calcium 8.2 L Phosphorus TIBC Total Bilirubin Direct Bilirubin Alkaline Phosphatase C-Reactive Protein NT-Pro-B Natriuret Pep Total Protein Albumin Lipase Vitamin B12 Folate Ur Specific Farrell Vancomycin Trough Crossmatch 06/28/18 06/28/18 06/28/18 09:56 09:56 09:56 WBC 37.8 H RBC Hgb Hct MCHC RDW 15.3 H Plt Count 634 H Seg Neuts % (Manual) Lymphocytes % (Manual) Monocytes % (Manual) Seg Neutrophils # Man Lymphocytes # (Manual) Monocytes # (Manual) PT INR APTT Heparin Anti-Xa Level POC ABG pH POC ABG pCO2 POC ABG pO2 Sodium 146 H Potassium 2.8 L* Chloride Carbon Dioxide 31 H BUN Creatinine 0.3 L Glucose 142 H POC Glucose Calcium 8.2 L Phosphorus TIBC Total Bilirubin Direct Bilirubin Alkaline Phosphatase C-Reactive Protein NT-Pro-B Natriuret Pep 1572 H Total Protein Albumin Lipase Vitamin B12 Folate Ur Specific Farrell Vancomycin Trough Crossmatch 06/28/18 06/28/18 06/29/18 13:19 21:24 00:57 WBC 28.9 H RBC Hgb Hct MCHC RDW Plt Count 681 H Seg Neuts % (Manual) 93.0 H Lymphocytes % (Manual) 1.5 L Monocytes % (Manual) Seg Neutrophils # Man 26.9 H Lymphocytes # (Manual) 0.4 L Monocytes # (Manual) PT INR APTT Heparin Anti-Xa Level POC ABG pH 7.470 H POC ABG pCO2 53.0 H POC ABG pO2 120 H Sodium Potassium 3.0 L Chloride Carbon Dioxide 33 H BUN Creatinine 0.3 L Glucose 116 H POC Glucose Calcium 8.2 L Phosphorus TIBC Total Bilirubin Direct Bilirubin Alkaline Phosphatase C-Reactive Protein NT-Pro-B Natriuret Pep Total Protein Albumin Lipase Vitamin B12 Folate Ur Specific Farrell Vancomycin Trough Crossmatch 06/29/18 06/29/18 06/29/18 05:58 05:58 12:21 WBC 25.8 H RBC Hgb Hct MCHC RDW Plt Count 661 H Seg Neuts % (Manual) Lymphocytes % (Manual) Monocytes % (Manual) Seg Neutrophils # Man Lymphocytes # (Manual) Monocytes # (Manual) PT INR APTT Heparin Anti-Xa Level POC ABG pH POC ABG pCO2 POC ABG pO2 Sodium Potassium 2.7 L* Chloride Carbon Dioxide 35 H BUN Creatinine 0.3 L Glucose 132 H POC Glucose 130 H Calcium 8.2 L Phosphorus TIBC Total Bilirubin Direct Bilirubin Alkaline Phosphatase C-Reactive Protein NT-Pro-B Natriuret Pep Total Protein Albumin Lipase Vitamin B12 Folate Ur Specific Farrell Vancomycin Trough Crossmatch 06/29/18 06/29/18 06/30/18 17:53 18:52 05:02 WBC RBC Hgb Hct MCHC RDW Plt Count Seg Neuts % (Manual) Lymphocytes % (Manual) Monocytes % (Manual) Seg Neutrophils # Man Lymphocytes # (Manual) Monocytes # (Manual) PT INR APTT Heparin Anti-Xa Level POC ABG pH POC ABG pCO2 POC ABG pO2 Sodium Potassium 3.1 L Chloride Carbon Dioxide 33 H BUN Creatinine 0.3 L Glucose 129 H POC Glucose 109 H 106 H Calcium 8.2 L Phosphorus TIBC Total Bilirubin Direct Bilirubin Alkaline Phosphatase C-Reactive Protein NT-Pro-B Natriuret Pep Total Protein Albumin Lipase Vitamin B12 Folate Ur Specific Farrell Vancomycin Trough Crossmatch 06/30/18 06/30/18 06/30/18 07:19 07:19 16:17 WBC 23.1 H RBC Hgb Hct MCHC RDW Plt Count 652 H Seg Neuts % (Manual) Lymphocytes % (Manual) Monocytes % (Manual) Seg Neutrophils # Man Lymphocytes # (Manual) Monocytes # (Manual) PT INR APTT Heparin Anti-Xa Level POC ABG pH POC ABG pCO2 POC ABG pO2 Sodium Potassium 2.8 L* Chloride Carbon Dioxide BUN Creatinine 0.3 L Glucose 109 H POC Glucose Calcium 8.2 L Phosphorus TIBC Total Bilirubin Direct Bilirubin Alkaline Phosphatase C-Reactive Protein NT-Pro-B Natriuret Pep Total Protein Albumin Lipase Vitamin B12 Folate Ur Specific Farrell Vancomycin Trough < 4.0 L Crossmatch 06/30/18 06/30/18 06/30/18 16:17 16:17 19:00 WBC RBC Hgb Hct MCHC RDW Plt Count Seg Neuts % (Manual) Lymphocytes % (Manual) Monocytes % (Manual) Seg Neutrophils # Man Lymphocytes # (Manual) Monocytes # (Manual) PT INR APTT Heparin Anti-Xa Level POC ABG pH POC ABG pCO2 POC ABG pO2 Sodium Potassium 3.0 L 3.2 L Chloride Carbon Dioxide BUN Creatinine 0.3 L Glucose 138 H POC Glucose Calcium Phosphorus 2.30 L D TIBC Total Bilirubin Direct Bilirubin Alkaline Phosphatase C-Reactive Protein NT-Pro-B Natriuret Pep Total Protein Albumin Lipase Vitamin B12 Folate Ur Specific Farrell Vancomycin Trough Crossmatch 07/01/18 07/01/18 07/01/18 04:04 04:04 12:21 WBC 26.3 H RBC Hgb Hct MCHC RDW Plt Count Seg Neuts % (Manual) Lymphocytes % (Manual) Monocytes % (Manual) Seg Neutrophils # Man Lymphocytes # (Manual) Monocytes # (Manual) PT INR APTT Heparin Anti-Xa Level POC ABG pH POC ABG pCO2 POC ABG pO2 Sodium 147 H Potassium Chloride Carbon Dioxide BUN 22 H Creatinine 0.3 L Glucose 126 H POC Glucose 190 H Calcium Phosphorus TIBC Total Bilirubin Direct Bilirubin Alkaline Phosphatase C-Reactive Protein NT-Pro-B Natriuret Pep Total Protein Albumin Lipase Vitamin B12 Folate Ur Specific Farrell Vancomycin Trough Crossmatch 07/02/18 07/02/18 07/03/18 04:17 04:17 09:58 WBC 40.2 H* 48.6 H* RBC 3.51 L Hgb Hct MCHC RDW Plt Count Seg Neuts % (Manual) Lymphocytes % (Manual) Monocytes % (Manual) Seg Neutrophils # Man Lymphocytes # (Manual) Monocytes # (Manual) PT INR APTT Heparin Anti-Xa Level POC ABG pH POC ABG pCO2 POC ABG pO2 Sodium Potassium 3.4 L Chloride Carbon Dioxide 32 H BUN 30 H Creatinine 0.3 L Glucose 166 H POC Glucose Calcium Phosphorus TIBC Total Bilirubin Direct Bilirubin Alkaline Phosphatase C-Reactive Protein NT-Pro-B Natriuret Pep Total Protein Albumin Lipase Vitamin B12 Folate Ur Specific Farrell Vancomycin Trough Crossmatch 07/03/18 07/03/18 07/04/18 09:58 11:07 05:37 WBC 48.5 H* RBC 3.53 L Hgb Hct MCHC RDW Plt Count 477 H Seg Neuts % (Manual) Lymphocytes % (Manual) Monocytes % (Manual) Seg Neutrophils # Man Lymphocytes # (Manual) Monocytes # (Manual) PT INR APTT Heparin Anti-Xa Level POC ABG pH POC ABG pCO2 POC ABG pO2 Sodium Potassium 3.5 L Chloride Carbon Dioxide 31 H BUN 33 H Creatinine 0.3 L Glucose 162 H POC Glucose Calcium Phosphorus TIBC Total Bilirubin Direct Bilirubin Alkaline Phosphatase C-Reactive Protein 13.20 H NT-Pro-B Natriuret Pep Total Protein Albumin Lipase Vitamin B12 Folate Ur Specific Farrell Vancomycin Trough Crossmatch 07/04/18 07/04/18 07/04/18 05:37 17:54 17:54 WBC RBC Hgb Hct MCHC RDW Plt Count Seg Neuts % (Manual) Lymphocytes % (Manual) Monocytes % (Manual) Seg Neutrophils # Man Lymphocytes # (Manual) Monocytes # (Manual) PT INR APTT Heparin Anti-Xa Level POC ABG pH POC ABG pCO2 POC ABG pO2 Sodium Potassium 3.4 L Chloride Carbon Dioxide 32 H BUN 30 H Creatinine 0.3 L Glucose 146 H POC Glucose Calcium Phosphorus TIBC Total Bilirubin Direct Bilirubin Alkaline Phosphatase C-Reactive Protein NT-Pro-B Natriuret Pep Total Protein Albumin Lipase Vitamin B12 Folate Ur Specific Farrell Vancomycin Trough Crossmatch See Detail See Detail 07/04/18 07/04/18 07/04/18 19:00 19:00 21:50 WBC RBC Hgb 9.5 L Hct 28.7 L MCHC RDW Plt Count 512 H Seg Neuts % (Manual) Lymphocytes % (Manual) Monocytes % (Manual) Seg Neutrophils # Man Lymphocytes # (Manual) Monocytes # (Manual) PT 18.7 H INR 1.46 H APTT Heparin Anti-Xa Level POC ABG pH 7.469 H POC ABG pCO2 45.8 H POC ABG pO2 109 H Sodium Potassium Chloride Carbon Dioxide BUN Creatinine Glucose POC Glucose Calcium Phosphorus TIBC Total Bilirubin Direct Bilirubin Alkaline Phosphatase C-Reactive Protein NT-Pro-B Natriuret Pep Total Protein Albumin Lipase Vitamin B12 Folate Ur Specific Farrell Vancomycin Trough Crossmatch 07/05/18 07/05/18 07/05/18 03:14 03:14 03:14 WBC 36.6 H RBC 3.12 L Hgb 9.1 L Hct 27.5 L MCHC RDW Plt Count 529 H Seg Neuts % (Manual) Lymphocytes % (Manual) Monocytes % (Manual) Seg Neutrophils # Man Lymphocytes # (Manual) Monocytes # (Manual) PT INR APTT Heparin Anti-Xa Level 0.10 L POC ABG pH POC ABG pCO2 POC ABG pO2 Sodium Potassium Chloride Carbon Dioxide BUN 29 H Creatinine 0.2 L Glucose 149 H POC Glucose Calcium 8.1 L Phosphorus TIBC Total Bilirubin Direct Bilirubin Alkaline Phosphatase C-Reactive Protein NT-Pro-B Natriuret Pep Total Protein 4.5 L Albumin 1.6 L Lipase Vitamin B12 Folate Ur Specific Farrell Vancomycin Trough Crossmatch 07/05/18 07/05/18 07/05/18 04:45 10:57 10:57 WBC RBC Hgb Hct MCHC RDW Plt Count Seg Neuts % (Manual) Lymphocytes % (Manual) Monocytes % (Manual) Seg Neutrophils # Man Lymphocytes # (Manual) Monocytes # (Manual) PT INR APTT Heparin Anti-Xa Level < 0.10 L POC ABG pH POC ABG pCO2 50.6 H POC ABG pO2 181 H Sodium Potassium Chloride Carbon Dioxide BUN Creatinine Glucose POC Glucose Calcium Phosphorus TIBC Total Bilirubin Direct Bilirubin Alkaline Phosphatase C-Reactive Protein NT-Pro-B Natriuret Pep Total Protein Albumin Lipase Vitamin B12 Folate Ur Specific Farrell Vancomycin Trough 38.9 H Crossmatch 07/05/18 07/06/18 07/06/18 18:27 02:00 04:48 WBC RBC Hgb Hct MCHC RDW Plt Count Seg Neuts % (Manual) Lymphocytes % (Manual) Monocytes % (Manual) Seg Neutrophils # Man Lymphocytes # (Manual) Monocytes # (Manual) PT INR APTT Heparin Anti-Xa Level < 0.10 L 0.23 L POC ABG pH POC ABG pCO2 POC ABG pO2 118 H Sodium Potassium Chloride Carbon Dioxide BUN Creatinine Glucose POC Glucose Calcium Phosphorus TIBC Total Bilirubin Direct Bilirubin Alkaline Phosphatase C-Reactive Protein NT-Pro-B Natriuret Pep Total Protein Albumin Lipase Vitamin B12 Folate Ur Specific Farrell Vancomycin Trough Crossmatch 07/06/18 07/06/18 07/06/18 05:00 05:00 12:05 WBC 23.1 H RBC 2.50 L Hgb 7.3 L Hct 22.3 L MCHC RDW Plt Count 541 H Seg Neuts % (Manual) Lymphocytes % (Manual) Monocytes % (Manual) Seg Neutrophils # Man Lymphocytes # (Manual) Monocytes # (Manual) PT INR APTT Heparin Anti-Xa Level 0.14 L POC ABG pH POC ABG pCO2 POC ABG pO2 Sodium Potassium Chloride 109.8 H Carbon Dioxide BUN 27 H Creatinine 0.2 L Glucose 157 H POC Glucose Calcium 7.7 L Phosphorus 1.60 L TIBC Total Bilirubin Direct Bilirubin Alkaline Phosphatase C-Reactive Protein NT-Pro-B Natriuret Pep Total Protein 4.5 L Albumin 1.7 L Lipase Vitamin B12 Folate Ur Specific Farrell Vancomycin Trough Crossmatch 07/06/18 07/06/18 07/07/18 17:29 19:45 00:17 WBC RBC Hgb Hct MCHC RDW Plt Count Seg Neuts % (Manual) Lymphocytes % (Manual) Monocytes % (Manual) Seg Neutrophils # Man Lymphocytes # (Manual) Monocytes # (Manual) PT INR APTT Heparin Anti-Xa Level 0.18 L POC ABG pH POC ABG pCO2 POC ABG pO2 Sodium Potassium Chloride Carbon Dioxide BUN Creatinine Glucose POC Glucose 141 H 143 H Calcium Phosphorus TIBC Total Bilirubin Direct Bilirubin Alkaline Phosphatase C-Reactive Protein NT-Pro-B Natriuret Pep Total Protein Albumin Lipase Vitamin B12 Folate Ur Specific Farrell Vancomycin Trough Crossmatch 07/07/18 07/07/18 07/07/18 02:14 02:14 05:09 WBC RBC Hgb Hct MCHC RDW Plt Count Seg Neuts % (Manual) Lymphocytes % (Manual) Monocytes % (Manual) Seg Neutrophils # Man Lymphocytes # (Manual) Monocytes # (Manual) PT INR APTT Heparin Anti-Xa Level < 0.10 L POC ABG pH POC ABG pCO2 POC ABG pO2 Sodium Potassium 3.4 L Chloride Carbon Dioxide BUN Creatinine < 0.2 L Glucose 127 H POC Glucose 126 H Calcium 7.6 L Phosphorus 2.10 L D TIBC Total Bilirubin Direct Bilirubin Alkaline Phosphatase C-Reactive Protein NT-Pro-B Natriuret Pep Total Protein Albumin Lipase Vitamin B12 Folate Ur Specific Farrell Vancomycin Trough Crossmatch 07/07/18 07/07/18 07/07/18 07:08 10:57 11:50 WBC 19.3 H RBC 2.49 L Hgb 7.2 L Hct 22.2 L MCHC RDW Plt Count 517 H Seg Neuts % (Manual) Lymphocytes % (Manual) Monocytes % (Manual) Seg Neutrophils # Man Lymphocytes # (Manual) Monocytes # (Manual) PT INR APTT Heparin Anti-Xa Level POC ABG pH POC ABG pCO2 POC ABG pO2 Sodium Potassium Chloride Carbon Dioxide BUN Creatinine Glucose POC Glucose 115 H Calcium Phosphorus TIBC 94 L Total Bilirubin Direct Bilirubin Alkaline Phosphatase C-Reactive Protein NT-Pro-B Natriuret Pep Total Protein Albumin Lipase Vitamin B12 Folate Ur Specific Farrell Vancomycin Trough Crossmatch 07/07/18 07/07/18 07/07/18 11:50 11:50 15:20 WBC RBC Hgb Hct MCHC RDW Plt Count 489 H Seg Neuts % (Manual) Lymphocytes % (Manual) Monocytes % (Manual) Seg Neutrophils # Man Lymphocytes # (Manual) Monocytes # (Manual) PT INR APTT Heparin Anti-Xa Level POC ABG pH POC ABG pCO2 POC ABG pO2 Sodium Potassium Chloride Carbon Dioxide BUN Creatinine Glucose POC Glucose Calcium Phosphorus TIBC Total Bilirubin Direct Bilirubin Alkaline Phosphatase C-Reactive Protein NT-Pro-B Natriuret Pep Total Protein Albumin Lipase Vitamin B12 924.8 H Folate 4.92 L Ur Specific Farrell Vancomycin Trough Crossmatch 07/07/18 07/07/18 07/07/18 15:20 18:16 20:04 WBC RBC Hgb Hct MCHC RDW Plt Count Seg Neuts % (Manual) Lymphocytes % (Manual) Monocytes % (Manual) Seg Neutrophils # Man Lymphocytes # (Manual) Monocytes # (Manual) PT 15.2 H INR APTT 42.2 H Heparin Anti-Xa Level < 0.10 L POC ABG pH POC ABG pCO2 POC ABG pO2 Sodium Potassium Chloride Carbon Dioxide BUN Creatinine Glucose POC Glucose 125 H Calcium Phosphorus TIBC Total Bilirubin Direct Bilirubin Alkaline Phosphatase C-Reactive Protein NT-Pro-B Natriuret Pep Total Protein Albumin Lipase Vitamin B12 Folate Ur Specific Farrell Vancomycin Trough Crossmatch 07/08/18 07/08/18 07/08/18 01:07 03:40 03:40 WBC RBC Hgb Hct MCHC RDW Plt Count 477 H Seg Neuts % (Manual) Lymphocytes % (Manual) Monocytes % (Manual) Seg Neutrophils # Man Lymphocytes # (Manual) Monocytes # (Manual) PT INR APTT Heparin Anti-Xa Level POC ABG pH POC ABG pCO2 POC ABG pO2 Sodium Potassium Chloride Carbon Dioxide BUN Creatinine < 0.2 L Glucose 161 H POC Glucose 132 H Calcium 7.9 L Phosphorus TIBC Total Bilirubin Direct Bilirubin Alkaline Phosphatase C-Reactive Protein NT-Pro-B Natriuret Pep Total Protein Albumin Lipase Vitamin B12 Folate Ur Specific Farrell Vancomycin Trough Crossmatch 07/08/18 07/08/18 07/08/18 06:16 11:35 17:28 WBC RBC Hgb Hct MCHC RDW Plt Count Seg Neuts % (Manual) Lymphocytes % (Manual) Monocytes % (Manual) Seg Neutrophils # Man Lymphocytes # (Manual) Monocytes # (Manual) PT INR APTT Heparin Anti-Xa Level POC ABG pH POC ABG pCO2 POC ABG pO2 Sodium Potassium Chloride Carbon Dioxide BUN Creatinine Glucose POC Glucose 143 H 154 H 136 H Calcium Phosphorus TIBC Total Bilirubin Direct Bilirubin Alkaline Phosphatase C-Reactive Protein NT-Pro-B Natriuret Pep Total Protein Albumin Lipase Vitamin B12 Folate Ur Specific Farrell Vancomycin Trough Crossmatch 07/08/18 07/09/18 07/09/18 23:12 04:37 05:30 WBC RBC Hgb 8.6 L Hct 25.6 L D MCHC RDW Plt Count 445 H Seg Neuts % (Manual) Lymphocytes % (Manual) Monocytes % (Manual) Seg Neutrophils # Man Lymphocytes # (Manual) Monocytes # (Manual) PT INR APTT Heparin Anti-Xa Level POC ABG pH POC ABG pCO2 46.9 H POC ABG pO2 120 H Sodium Potassium Chloride Carbon Dioxide BUN Creatinine Glucose POC Glucose 146 H Calcium Phosphorus TIBC Total Bilirubin Direct Bilirubin Alkaline Phosphatase C-Reactive Protein NT-Pro-B Natriuret Pep Total Protein Albumin Lipase Vitamin B12 Folate Ur Specific Farrell Vancomycin Trough Crossmatch 07/09/18 07/09/18 07/09/18 05:30 05:34 23:41 WBC RBC Hgb Hct MCHC RDW Plt Count Seg Neuts % (Manual) Lymphocytes % (Manual) Monocytes % (Manual) Seg Neutrophils # Man Lymphocytes # (Manual) Monocytes # (Manual) PT INR APTT Heparin Anti-Xa Level POC ABG pH POC ABG pCO2 POC ABG pO2 Sodium Potassium 3.3 L D Chloride Carbon Dioxide 33 H BUN Creatinine < 0.2 L Glucose 145 H POC Glucose 149 H 123 H Calcium 7.8 L Phosphorus 2.40 L TIBC Total Bilirubin Direct Bilirubin Alkaline Phosphatase C-Reactive Protein NT-Pro-B Natriuret Pep Total Protein Albumin Lipase Vitamin B12 Folate Ur Specific Farrell Vancomycin Trough Crossmatch 07/10/18 07/10/18 07/10/18 04:32 05:45 05:50 WBC 12.4 H RBC 2.83 L Hgb 8.6 L Hct 24.8 L MCHC 35 H RDW 15.3 H Plt Count 477 H Seg Neuts % (Manual) Lymphocytes % (Manual) Monocytes % (Manual) Seg Neutrophils # Man Lymphocytes # (Manual) Monocytes # (Manual) PT INR APTT Heparin Anti-Xa Level POC ABG pH POC ABG pCO2 48.5 H POC ABG pO2 Sodium Potassium Chloride Carbon Dioxide BUN Creatinine Glucose POC Glucose 124 H Calcium Phosphorus TIBC Total Bilirubin Direct Bilirubin Alkaline Phosphatase C-Reactive Protein NT-Pro-B Natriuret Pep Total Protein Albumin Lipase Vitamin B12 Folate Ur Specific Farrell Vancomycin Trough Crossmatch 07/10/18 07/10/18 07/10/18 05:50 10:11 11:52 WBC RBC Hgb Hct MCHC RDW Plt Count Seg Neuts % (Manual) Lymphocytes % (Manual) Monocytes % (Manual) Seg Neutrophils # Man Lymphocytes # (Manual) Monocytes # (Manual) PT INR APTT Heparin Anti-Xa Level < 0.10 L POC ABG pH POC ABG pCO2 POC ABG pO2 Sodium Potassium Chloride Carbon Dioxide BUN Creatinine < 0.2 L Glucose 131 H POC Glucose 126 H Calcium 8.3 L Phosphorus TIBC Total Bilirubin Direct Bilirubin Alkaline Phosphatase C-Reactive Protein NT-Pro-B Natriuret Pep Total Protein 4.8 L Albumin 1.9 L Lipase Vitamin B12 Folate Ur Specific Farrell Vancomycin Trough Crossmatch 07/10/18 07/10/18 07/10/18 17:17 18:41 23:24 WBC RBC Hgb Hct MCHC RDW Plt Count Seg Neuts % (Manual) Lymphocytes % (Manual) Monocytes % (Manual) Seg Neutrophils # Man Lymphocytes # (Manual) Monocytes # (Manual) PT INR APTT Heparin Anti-Xa Level POC ABG pH POC ABG pCO2 POC ABG pO2 Sodium Potassium Chloride Carbon Dioxide BUN Creatinine Glucose POC Glucose 155 H 134 H 175 H Calcium Phosphorus TIBC Total Bilirubin Direct Bilirubin Alkaline Phosphatase C-Reactive Protein NT-Pro-B Natriuret Pep Total Protein Albumin Lipase Vitamin B12 Folate Ur Specific Farrell Vancomycin Trough Crossmatch 07/11/18 07/11/18 07/11/18 05:10 05:13 05:13 WBC 17.7 H RBC 3.19 L Hgb 9.4 L Hct 28.1 L MCHC RDW Plt Count 528 H Seg Neuts % (Manual) 71.0 H Lymphocytes % (Manual) 10.0 L Monocytes % (Manual) 9.0 H Seg Neutrophils # Man 12.6 H Lymphocytes # (Manual) Monocytes # (Manual) 1.6 H PT INR APTT Heparin Anti-Xa Level 0.28 L POC ABG pH POC ABG pCO2 POC ABG pO2 Sodium Potassium Chloride Carbon Dioxide BUN Creatinine Glucose POC Glucose 135 H Calcium Phosphorus TIBC Total Bilirubin Direct Bilirubin Alkaline Phosphatase C-Reactive Protein NT-Pro-B Natriuret Pep Total Protein Albumin Lipase Vitamin B12 Folate Ur Specific Farrell Vancomycin Trough Crossmatch 07/11/18 07/11/18 07/11/18 05:13 11:33 12:10 WBC RBC Hgb Hct MCHC RDW Plt Count Seg Neuts % (Manual) Lymphocytes % (Manual) Monocytes % (Manual) Seg Neutrophils # Man Lymphocytes # (Manual) Monocytes # (Manual) PT INR APTT Heparin Anti-Xa Level < 0.10 L POC ABG pH POC ABG pCO2 POC ABG pO2 Sodium Potassium Chloride Carbon Dioxide BUN Creatinine < 0.2 L Glucose 137 H POC Glucose 153 H Calcium Phosphorus TIBC Total Bilirubin Direct Bilirubin Alkaline Phosphatase 149 H C-Reactive Protein NT-Pro-B Natriuret Pep Total Protein 5.5 L Albumin 2.5 L Lipase Vitamin B12 Folate Ur Specific Farrell Vancomycin Trough Crossmatch 07/11/18 07/11/18 07/11/18 16:00 18:12 23:45 WBC RBC Hgb Hct MCHC RDW Plt Count Seg Neuts % (Manual) Lymphocytes % (Manual) Monocytes % (Manual) Seg Neutrophils # Man Lymphocytes # (Manual) Monocytes # (Manual) PT 15.1 H INR APTT Heparin Anti-Xa Level POC ABG pH POC ABG pCO2 POC ABG pO2 Sodium Potassium Chloride Carbon Dioxide BUN Creatinine Glucose POC Glucose 146 H 149 H Calcium Phosphorus TIBC Total Bilirubin Direct Bilirubin Alkaline Phosphatase C-Reactive Protein NT-Pro-B Natriuret Pep Total Protein Albumin Lipase Vitamin B12 Folate Ur Specific Farrell Vancomycin Trough Crossmatch 07/12/18 07/12/18 07/12/18 04:16 04:16 04:16 WBC RBC Hgb Hct MCHC RDW Plt Count 533 H Seg Neuts % (Manual) Lymphocytes % (Manual) Monocytes % (Manual) Seg Neutrophils # Man Lymphocytes # (Manual) Monocytes # (Manual) PT 15.6 H INR 1.17 H APTT Heparin Anti-Xa Level POC ABG pH POC ABG pCO2 POC ABG pO2 Sodium Potassium 3.2 L Chloride Carbon Dioxide BUN Creatinine < 0.2 L Glucose 148 H POC Glucose Calcium Phosphorus TIBC Total Bilirubin Direct Bilirubin Alkaline Phosphatase 168 H C-Reactive Protein NT-Pro-B Natriuret Pep Total Protein 6.1 L Albumin 2.4 L Lipase Vitamin B12 Folate Ur Specific Farrell Vancomycin Trough Crossmatch 07/12/18 07/12/18 07/12/18 05:19 11:37 22:49 WBC RBC Hgb Hct MCHC RDW Plt Count Seg Neuts % (Manual) Lymphocytes % (Manual) Monocytes % (Manual) Seg Neutrophils # Man Lymphocytes # (Manual) Monocytes # (Manual) PT INR APTT Heparin Anti-Xa Level POC ABG pH POC ABG pCO2 POC ABG pO2 Sodium Potassium Chloride Carbon Dioxide BUN Creatinine Glucose POC Glucose 151 H 152 H 141 H Calcium Phosphorus TIBC Total Bilirubin Direct Bilirubin Alkaline Phosphatase C-Reactive Protein NT-Pro-B Natriuret Pep Total Protein Albumin Lipase Vitamin B12 Folate Ur Specific Farrell Vancomycin Trough Crossmatch 07/13/18 07/13/18 07/13/18 04:07 04:07 04:07 WBC RBC Hgb Hct MCHC RDW Plt Count 520 H Seg Neuts % (Manual) Lymphocytes % (Manual) Monocytes % (Manual) Seg Neutrophils # Man Lymphocytes # (Manual) Monocytes # (Manual) PT 17.1 H INR 1.31 H APTT Heparin Anti-Xa Level POC ABG pH POC ABG pCO2 POC ABG pO2 Sodium Potassium 3.1 L Chloride Carbon Dioxide BUN Creatinine 0.2 L Glucose 110 H POC Glucose Calcium Phosphorus TIBC Total Bilirubin Direct Bilirubin Alkaline Phosphatase C-Reactive Protein NT-Pro-B Natriuret Pep Total Protein Albumin Lipase Vitamin B12 Folate Ur Specific Farrell Vancomycin Trough Crossmatch 07/13/18 11:45 WBC RBC Hgb Hct MCHC RDW Plt Count Seg Neuts % (Manual) Lymphocytes % (Manual) Monocytes % (Manual) Seg Neutrophils # Man Lymphocytes # (Manual) Monocytes # (Manual) PT INR APTT Heparin Anti-Xa Level POC ABG pH POC ABG pCO2 POC ABG pO2 Sodium Potassium Chloride Carbon Dioxide BUN Creatinine Glucose POC Glucose 137 H Calcium Phosphorus TIBC Total Bilirubin Direct Bilirubin Alkaline Phosphatase C-Reactive Protein NT-Pro-B Natriuret Pep Total Protein Albumin Lipase Vitamin B12 Folate Ur Specific Farrell Vancomycin Trough Crossmatch
--- NOTE | 2018-07-13 13:52 | Progress Note ---
Assessment and Plan Assessment and plan: --Hypokalemia; replace per protocol with KCl Follow electrolytes --Discontinued NG tube, clear liquids and advance as tolerated --Acute Mesenteric ischemia; with ischemic bowel/gangrene bowel Sigmoid diverticulitis with perforation of distal sigmoid colon Patient underwent multiple surgical procedures as mentioned below/management per surgery 1) Abdominal re-exploration and washout, cholecystectomy, primary closure of abdominal wall 07/10/18, POD 1 2) exploratory laparotomy, small bowel resection with primary anastamosis, right hemicolectomy with ileocolonic anastamosis,temporary closure of abdomen with abthera vac 07/07/18 - POD#5; 3) Exploratory laparotomy, small bowel resection, partial colon resection, temporary abdominal closure with abthera vac 07/04/18, POD7 ; and 4) Exploratory laparotomy, Ezequiel's procedure 06/24/18 --Acute hypoxic respiratory failure;Requiring intubation , extubated yesterday Oxygen titrate O2 sats to more than 90%, supportive care, pulmonary following --Acute exacerbation of COPD; continue current management Nebulizers inhalation steroids supportive care --Acute SMA/SMV/distal aortic Thrombosis; vascular following, on heparin drip Patient may need lifelong anticoagulation per vascular, initiate Coumadin after speech and swallow evaluation Target INR 2-3 --Sepsis; continue cefepime and fluconazole and Flagyl, ID following --Leukocytosis; secondary to sepsis, trending down --Severe malnutrition; nutrition consult, TPN --Speech and swallow evaluation, diet as tolerated when patient is surgically ready for oral nutrition --Ongoing tobacco use; smoking cessation, nicotine patch as needed --DVT prophylaxis; the patient is already on heparin drip --Physical therapy occupational therapy --Discharge planning. Case management and patient is stable Physical therapy occupational therapy Plan of care reviewed with the patient , her nurse and case management Possible discharge in 1-2 days if stable Hospitalist Physical - Constitutional Vitals: Temp Pulse Resp BP Pulse Ox 98.2 F 106 H 20 108/66 98 07/13/18 07:30 07/13/18 11:29 07/13/18 11:29 07/13/18 07:30 07/13/18 11:18 General appearance: Present: no acute distress - EENT Eyes: Present: PERRL, EOM intact - Neck Neck: Present: supple, normal ROM - Respiratory Respiratory effort: normal Respiratory: bilateral: diminished, negative: rales, rhonchi - Cardiovascular Rhythm: regular Heart Sounds: Present: S1 & S2 - Extremities Extremities: no ischemia, No edema - Abdominal General gastrointestinal: soft, non-tender, non-distended, normal bowel sounds - Integumentary Integumentary: Present: clear, warm - Psychiatric Psychiatric: appropriate mood/affect, cooperative - Neurologic Neurologic: CNII-XII intact, moves all extremities Results - Labs CBC & Chem 7: 07/13/18 04:07 07/13/18 04:07 Labs: Laboratory Last Values WBC 17.7 K/mm3 (4.5-11.0) H 07/11/18 05:13 RBC 3.19 M/mm3 (3.65-5.03) L 07/11/18 05:13 Hgb 10.9 gm/dl (10.1-14.3) 07/13/18 04:07 Hct 32.2 % (30.3-42.9) 07/13/18 04:07 MCV 88 fl (79-97) 07/11/18 05:13 MCH 30 pg (28-32) 07/11/18 05:13 MCHC 34 % (30-34) 07/11/18 05:13 RDW 15.2 % (13.2-15.2) 07/11/18 05:13 Plt Count 520 K/mm3 (140-440) H 07/13/18 04:07 Add Manual Diff Complete 07/11/18 05:13 Total Counted 100 07/11/18 05:13 Seg Neutrophils % [employer] 06/29/18 00:57 Seg Neuts % (Manual) 71.0 % (40.0-70.0) H 07/11/18 05:13 10.0 % 07/11/18 05:13 10.0 % (13.4-35.0) L 07/11/18 05:13 Reactive Lymphs % (Man) 0 % 07/11/18 05:13 9.0 % (0.0-7.3) H 07/11/18 05:13 0 % (0.0-4.3) 07/11/18 05:13 0 % (0.0-1.8) 07/11/18 05:13 0 % 07/11/18 05:13 0 % 07/11/18 05:13 0 % 07/11/18 05:13 0 % 07/11/18 05:13 Nucleated RBC % Not Reportable 07/11/18 05:13 Seg Neutrophils # Man 12.6 K/mm3 (1.8-7.7) H 07/11/18 05:13 Band Neutrophils # 1.8 K/mm3 07/11/18 05:13 1.8 K/mm3 (1.2-5.4) 07/11/18 05:13 Abs React Lymphs (Man) 0.0 K/mm3 07/11/18 05:13 1.6 K/mm3 (0.0-0.8) H 07/11/18 05:13 0.0 K/mm3 (0.0-0.4) 07/11/18 05:13 0.0 K/mm3 (0.0-0.1) 07/11/18 05:13 0.0 K/mm3 07/11/18 05:13 0.0 K/mm3 07/11/18 05:13 0.0 K/mm3 07/11/18 05:13 Blast Cells # 0.0 K/mm3 07/11/18 05:13 WBC Morphology Not Reportable 07/11/18 05:13 Hypersegmented Neuts Not Reportable 07/11/18 05:13 Hyposegmented Neuts Not Reportable 07/11/18 05:13 Hypogranular Neuts Not Reportable 07/11/18 05:13 Not Reportable 07/11/18 05:13 Not Reportable 07/11/18 05:13 Not Reportable 07/11/18 05:13 Not Reportable 07/11/18 05:13 Not Reportable 07/11/18 05:13 Not Reportable 07/11/18 05:13 Appears increased 07/11/18 05:13 Not Reportable 07/11/18 05:13 Plt Clumps, EDTA Not Reportable 07/11/18 05:13 Not Reportable 07/11/18 05:13 Not Reportable 07/11/18 05:13 Not Reportable 07/11/18 05:13 Plt Morphology Comment Not Reportable 07/11/18 05:13 RBC Morphology Not Reportable 07/11/18 05:13 Dimorphic RBCs Not Reportable 07/11/18 05:13 1+ 07/11/18 05:13 Not Reportable 07/11/18 05:13 Not Reportable 07/11/18 05:13 1+ 07/11/18 05:13 Not Reportable 07/11/18 05:13 Not Reportable 07/11/18 05:13 Not Reportable 07/11/18 05:13 Not Reportable 07/11/18 05:13 Not Reportable 07/11/18 05:13 Rare 07/11/18 05:13 Not Reportable 07/11/18 05:13 Not Reportable 07/11/18 05:13 Few 07/11/18 05:13 Not Reportable 07/11/18 05:13 Not Reportable 07/11/18 05:13 Not Reportable 07/11/18 05:13 Not Reportable 07/11/18 05:13 Not Reportable 07/11/18 05:13 Not Reportable 07/11/18 05:13 Not Reportable 07/11/18 05:13 Acanthocytes (Spur) Not Reportable 07/11/18 05:13 Rouleaux Not Reportable 07/11/18 05:13 Not Reportable 07/11/18 05:13 Not Reportable 07/11/18 05:13 Not Reportable 07/11/18 05:13 Not Reportable 07/11/18 05:13 Hem Pathologist Commnt No 07/11/18 05:13 PT 17.1 Sec. (12.2-14.9) H 07/13/18 04:07 INR 1.31 (0.87-1.13) H 07/13/18 04:07 APTT 42.2 Sec. (24.2-36.6) H 07/07/18 15:20 Heparin Anti-Xa Level 0.54 U.I./ml (0.3-0.7) 07/12/18 23:09 POC ABG pH 7.431 (7.35-7.45) 07/10/18 04:32 POC ABG pCO2 48.5 (35-45) H 07/10/18 04:32 POC ABG pO2 104 (80-105) 07/10/18 04:32 POC ABG HCO3 32.2 (22-26 mml/L) 07/10/18 04:32 POC ABG Total CO2 34 (23-27mmol/L) 07/10/18 04:32 POC ABG O2 Sat 98 07/10/18 04:32 POC ABG Base Excess 8 ((-2) - (+3)mmol/L) 07/10/18 04:32 28 % 07/10/18 04:32 Sodium 142 mmol/L (137-145) 07/13/18 04:07 Potassium 3.1 mmol/L (3.6-5.0) L 07/13/18 04:07 Chloride 103.8 mmol/L (98-107) 07/13/18 04:07 Carbon Dioxide 27 mmol/L (22-30) 07/13/18 04:07 14 mmol/L 07/13/18 04:07 BUN 17 mg/dL (7-17) 07/13/18 04:07 0.2 mg/dL (0.7-1.2) L 07/13/18 04:07 Estimated GFR > 60 ml/min 07/13/18 04:07 85 % 07/13/18 04:07 Glucose 110 mg/dL (65-100) H 07/13/18 04:07 POC Glucose 137 (70-105) H 07/13/18 11:45 Lactic Acid 1.40 mmol/L (0.7-2.0) 07/04/18 21:11 Calcium 8.8 mg/dL (8.4-10.2) 07/13/18 04:07 Phosphorus 3.00 mg/dL (2.5-4.5) 07/13/18 04:07 Magnesium 1.90 mg/dL (1.7-2.3) 07/13/18 04:07 Iron 40 ug/dL (37-170) 07/07/18 11:50 TIBC 94 mcg/dL (250-450) L 07/07/18 11:50 377.8 ng/mL (13.0-400.0) 07/07/18 11:50 0.40 mg/dL (0.1-1.2) 07/12/18 04:16 < 0.2 mg/dL (0-0.2) 07/12/18 04:16 0.2 mg/dL 07/12/18 04:16 AST 26 units/L (5-40) 07/12/18 04:16 ALT 32 units/L (7-56) 07/12/18 04:16 168 units/L (35-129) H 07/12/18 04:16 13.20 mg/dL (0.00-1.30) H 07/03/18 11:07 NT-Pro-B Natriuret Pep 1572 pg/mL (0-900) H 06/28/18 09:56 6.1 g/dL (6.3-8.2) L 07/12/18 04:16 2.4 g/dL (3.9-5) L 07/12/18 04:16 0.6 % 07/12/18 04:16 Triglycerides 127 mg/dL (2-149) 07/07/18 02:14 8 units/L (13-60) L 06/24/18 11:19 Vitamin B12 924.8 pg/mL (211-911) H 07/07/18 11:50 4.92 ng/mL (7.3-26.0) L 07/07/18 11:50 Na (Yellow) 07/03/18 Unknown Hazy (Clear) 07/03/18 Unknown 6.0 (5.0-7.0) 07/03/18 Unknown Ur Specific Lilly 1.023 (1.003-1.030) 07/03/18 Unknown <15 mg/dl mg/dL (Negative) 07/03/18 Unknown Neg mg/dL (Negative) 07/03/18 Unknown Neg mg/dL (Negative) 07/03/18 Unknown Sm (Negative) 07/03/18 Unknown Neg (Negative) 07/03/18 Unknown Neg (Negative) 07/03/18 Unknown < 2.0 mg/dL (<2.0) 07/03/18 Unknown Ur Leukocyte Esterase Neg (Negative) 07/03/18 Unknown 1.0 /HPF (0.0-6.0) 07/03/18 Unknown 3.0 /HPF (0.0-6.0) 07/03/18 Unknown U Epithel Cells (Auto) 7.0 /HPF (0-13.0) 07/03/18 Unknown 1+ /HPF (Negative) 06/24/18 13:00 Few /HPF 07/03/18 Unknown Vancomycin Trough 38.9 ug/mL (5.0-20.0) H 07/05/18 10:57 Blood Type O POSITIVE 07/04/18 17:54 Antibody Screen TNR 07/04/18 17:54 FADY Antibody Screen Negative 07/04/18 17:54 Crossmatch See Detail 07/04/18 17:54 Crossmatch See Detail 07/04/18 17:54 Active Medications - Current Medications Current Medications: Generic Name Dose Route Start Last Admin Trade Name Freq PRN Reason Stop Dose Admin Albuterol 2.5 mg 07/02/18 07:44 Proventil IH Q4HRT PRN Shortness Of Breath Arformoterol Tartrate 15 mcg 07/12/18 20:00 07/13/18 11:17 Brovana Nebu IH 15 mcg Q12HRT MAURICIO Administration Budesonide 0.5 mg 07/02/18 20:00 07/13/18 11:16 Pulmicort IH 0.5 mg Q12HRT MAURICIO Administration Famotidine 20 mg 07/11/18 10:00 07/13/18 09:57 Pepcid IV 20 mg BID MAURICIO Administration Hydromorphone HCl 1 mg 07/11/18 11:11 07/13/18 09:59 Dilaudid IV 1 mg Q4H PRN Administration Pain , Severe (7-10) Hydrophilic Ointment 1 applic 07/04/18 18:23 Vaseline Lip Therapy TP Q2HR PRN Dry Lips Heparin Sodium/Sodium Chloride 25,000 unit in 500 mls @ 15 mls/hr 07/07/18 14:00 07/13/18 00:14 Heparin/ 0.45% Nacl-25,000 Unit/500 Ml IV 1,650 units/hr TITR MAURICIO 33 mls/hr Titration Protocol 750 UNITS/HR Amino Acids/Electrolytes/Dextrose 1,800 mls @ 75 mls/hr 07/12/18 20:00 07/13/18 08:28 Tpn Adult IV 07/13/18 19:59 75 mls/hr DAILY@1999 [facility] Administration Protocol Amino Acids/Electrolytes/Dextrose 1,800 mls @ 75 mls/hr 07/13/18 20:00 Tpn Adult IV 07/14/18 19:59 DAILY@1999 [facility] Protocol Multi-Ingred Cream/Lotion/Oil/Oint 1 applic 07/04/18 18:23 Artificial Tears Ophth Oint OU Q4HR PRN Dry Eye(s) Naloxone HCl 0.1 mg 06/24/18 18:55 Narcan 0.4 Mg/1 Ml IV Q2MIN PRN Res Rate </= 8 or 02 SAT < 92% Nicotine 14 mg 06/25/18 10:00 07/13/18 09:56 Habitrol TD 14 mg QDAY MAURICIO Administration Ondansetron HCl 4 mg 06/24/18 14:00 07/13/18 04:17 Zofran IV 4 mg Q8H PRN Administration Nausea And Vomiting Sodium Chloride 10 ml 06/24/18 22:00 07/13/18 09:57 Sodium Chloride Flush Syringe 10 Ml IV 10 ml BID MAURICIO Administration Sodium Chloride 10 ml 06/24/18 14:00 07/07/18 16:07 Sodium Chloride Flush Syringe 10 Ml IV 10 ml PRN PRN Administration LINE FLUSH Warfarin Sodium 5 mg 07/12/18 17:00 07/12/18 18:04 Coumadin PO 5 mg DAILY@1700 MAURICIO Administration Nutrition/Malnutrition Assess - Dietary Evaluation Nutrition/Malnutrition Findings: Nutrition Notes Start: 06/30/18 16:45 Freq: Status: Active Protocol: Document 07/12/18 14:04 LP (Rec: 07/12/18 14:09 LP [id number]) Nutrition Notes Initial or Follow up Reassessment Current Diagnosis Respiratory Failure Other Pertinent Diagnosis Perforated viscus s/p exp lap Current Diet CPN at 75ml/hr Labs/Tests K 3.2 Pertinent Medications Reviewed Height 5 ft 3 in Weight 52.3 kg [place] Body Weight (kg) 52.27 BMI 20.4 Subjective/Other Information CPN day 7. [employer] ATTENDANT recommends pureed diet. Pt to remain NPO. Percent of energy/protein needs met: 91%/100% Burn Absent Trauma Absent #2 Nutrition Diagnosis Inadequate oral intake Diagnosis Progress(for reassessment Continues documentation) #1 Nutrition Diagnosis Increased nutrient needs ( specify in comment below) Diagnosis Progress(for reassessment Continues documentation) Is patient on ventilator? No Is Patient Ambulatory and/or Out of Bed No REE-([facility]-confined to bed) 1291.488 Kcal/Kg value to use for calculation 33 Approximate Energy Requirements Using 1726 kcal/Kg Calculation Used for Recommendations Kcal/kg Additional Notes Pro needs 1.2-2/k-104g/ day Fluid needs 1ml/kcal Nutrition Intervention Change Diet Order: CPN Nutrition Support: CPN at 75 ml/hr: 171mEq K, 49mmol phos Osmolarity: 1617 Kcal 1,270 Protein (gm) 105 Carbohydrates (gm) 250 Fat (gm) 0 Fluid (mL) 1,800 Fiber (gm) 0 Goal #1 Meet at least 80% of kcal and protein needs as best as possible Anticipated Discharge Needs: home TPN Follow-Up By: 07/13/18 Additional Comments Labs in AM: BMP, Mg, Phos
[2018-07-13] MEDS ORDERED: K-DUR PO ONE (14:00)
[2018-07-13] MEDS: HEPARIN/ 0.45% NACL-25,000 UNIT/500 ML 25,000 UNIT/500 ML BAG IV SCH ×2 (15:21)
[2018-07-13] MEDS: COUMADIN PO SCH (17:19)
[2018-07-13] MEDS ORDERED: TPN ADULT 1,800 ML IV SCH (20:00)
[2018-07-13] MEDS ORDERED: BENADRYL PO ONE (23:11)
[2018-07-14 01:25] LABS: Basophils # (Auto) 0.2 K/mm3 (0.0-0.1); Eosinophils # (Auto) 0.1 K/mm3 (0.0-0.4); Eosinophils % (Auto) 0.4 % (0.0-4.3); Hematocrit 28.4 % (30.3-42.9); Hemoglobin 9.5 gm/dl (10.1-14.3); Lymphocytes # (Auto) 2.2 K/mm3 (1.2-5.4); Lymphocytes % (Auto) 11.4 % (13.4-35.0); Mean Corpuscular HGB Conc 33 % (30-34); Mean Corpuscular Volume 88 fl (79-97); Monocytes # (Auto) 1.2 K/mm3 (0.0-0.8); Monocytes % (Auto) 6.4 % (0.0-7.3); Platelet Count 472 K/mm3 (140-440); Red Blood Count 3.22 M/mm3 (3.65-5.03); Red Cell Distribution Width 15.5 % (13.2-15.2)
[2018-07-14] MEDS: DILAUDID IV PRN ×4 (02:18→21:27)
[2018-07-14 06:18] LABS: INR 1.97 (0.87-1.13)
[2018-07-14 06:25] LABS: BUN/Creatinine Ratio 100; Blood Urea Nitrogen 20 mg/dL (7-17); Calcium 8.4 mg/dL (8.4-10.2); Hemolysis Index 0
[2018-07-14] MEDS: HEPARIN/ 0.45% NACL-25,000 UNIT/500 ML 25,000 UNIT/500 ML BAG IV SCH ×2 (06:42→22:01)
[2018-07-14] MEDS: PULMICORT IH SCH ×2 (07:37→19:06)
[2018-07-14] MEDS: BROVANA NEBU IH SCH ×2 (07:37→19:06)
[2018-07-14] MEDS: PEPCID IV SCH ×2 (09:16→21:13)
--- NOTE | 2018-07-14 09:24 | Progress Note ---
Assessment and Plan Cultures: 06/26/2018 Blood culture no growth 07/03/2018 Blood culture no growth so far 07/04/2018 Sputum usual respiratory kait Assessment: 58 y/o female with history of HTN, tobacco dependence admitted on 06/24/2018 due to a week history of severe abdominal pain, constipation and nausea. 1) Severe sepsis: Improved. Persistent leukocytosis. Etiology most likely peritonitis from diverticular perforation and leukemoid reaction likely due to bowel ischemia. 2) Acute fecal peritonitis from diverticular perforation/abscess: went to OR on 06/24/2018 for Exploratory laparotomy, Ezequiel's for perforated sigmoid diverticulitis with purulent peritonitis. 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 No pulsation in SMA, small bowel resection, partial colon resection, temporary abdominal closure with abthera vac on 07/04. Now again to OR on 07/07/2018, was found to have an 8 cm area of necrotic small bowel. S/P Abdominal re-exploration and washout, cholecystectomy, primary closure of abdominal wall 07/10/18. Completed empiric abx. 3) Bilateral pneumonia: ?aspiration v/s HAP. CTA showed scattered infiltrates identified in both lungs, this is most prominent in the right lower lung, slight bilateral effusions, no evidence of pulmonary arterial emboli. 4) Acute hypoxemic resp failure: extubated, doing well. 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 s/p surgery as above. On anticoagulation. Recommendations: -monitor off antibiotics -monitor WBC Dr. Wagner is electronic console display operator this weekend [phone], please call for questions. Chanelle Pascal NP [facility] M: [id number] O:[phone] Subjective Date of service: 07/14/18 Principal diagnosis: small bowel ischemiaperitonitis/penumonia Interval history: Patient seen and examined. Reports no generalized pain, weakness or SOB. No fevers. Objective - Exam Narrative Exam: Constitutional: awake, alert, No acute distress Head, Ears, Nose: Normocephalic, atraumatic. External ears, nose normal Eyes: Conjunctivae/corneas clear. No icterus. No ptosis. Neck: supple, no meningeal signs Oral: no thrush, no ulcers Cardiovascular: S1, S2 normal. Respiratory: Good air entry, clear to auscultation bilaterally GI: soft, colostomy +, midline dressing +, bowel sounds + Musculoskeletal: No pedal edema, no cyanosis. Skin: No rash or abscess Hem/Lymphatic: No palpable cervical or supraclavicular nodes. No lymphangitis Psych: mood good, pleasant Neurological: awake, alert, oriented - Constitutional Vitals: Vital Signs Temp Pulse Resp BP Pulse Ox 99.0 F 110 H 18 121/69 94 07/14/18 08:00 07/14/18 08:00 07/14/18 08:00 07/14/18 08:00 07/14/18 08:00 Temperature -Last 24 Hours Temperature 99.0 F Temperature 98.5 F Temperature 98.4 F Temperature 98.0 F Temperature 98.5 F - Labs CBC & Chem 7: 07/14/18 00:55 07/14/18 05:35 Labs: Abnormal lab results 07/13/18 07/13/18 07/13/18 Range/Units 11:45 16:26 22:18 WBC (4.5-11.0) K/mm3 RBC (3.65-5.03) M/mm3 Hgb (10.1-14.3) gm/dl Hct (30.3-42.9) % RDW (13.2-15.2) % Plt Count (140-440) K/mm3 Lymph % (Auto) (13.4-35.0) % [place] # (0.0-0.8) K/mm3 Baso # (0.0-0.1) K/mm3 Seg Neutrophils % (40.0-70.0) % Seg Neutrophils # (1.8-7.7) K/mm3 PT (12.2-14.9) Sec. INR (0.87-1.13) BUN (7-17) mg/dL Creatinine (0.7-1.2) mg/dL Glucose (65-100) mg/dL POC Glucose 137 H 129 H 133 H (70-105) Prealbumin (0.200-0.400) g/L 07/14/18 07/14/18 07/14/18 Range/Units 00:55 05:35 05:35 WBC 19.0 H (4.5-11.0) K/mm3 RBC 3.22 L (3.65-5.03) M/mm3 Hgb 9.5 L (10.1-14.3) gm/dl Hct 28.4 L (30.3-42.9) % RDW 15.5 H (13.2-15.2) % Plt Count 472 H (140-440) K/mm3 Lymph % (Auto) 11.4 L (13.4-35.0) % [place] # 1.2 H (0.0-0.8) K/mm3 Baso # 0.2 H (0.0-0.1) K/mm3 Seg Neutrophils % 80.8 H (40.0-70.0) % Seg Neutrophils # 15.3 H (1.8-7.7) K/mm3 PT 23.7 H (12.2-14.9) Sec. INR 1.97 H (0.87-1.13) BUN (7-17) mg/dL Creatinine (0.7-1.2) mg/dL Glucose (65-100) mg/dL POC Glucose (70-105) Prealbumin 0.185 L (0.200-0.400) g/L 07/14/18 Range/Units 05:35 WBC (4.5-11.0) K/mm3 RBC (3.65-5.03) M/mm3 Hgb (10.1-14.3) gm/dl Hct (30.3-42.9) % RDW (13.2-15.2) % Plt Count (140-440) K/mm3 Lymph % (Auto) (13.4-35.0) % [place] # (0.0-0.8) K/mm3 Baso # (0.0-0.1) K/mm3 Seg Neutrophils % (40.0-70.0) % Seg Neutrophils # (1.8-7.7) K/mm3 PT (12.2-14.9) Sec. INR (0.87-1.13) BUN 20 H (7-17) mg/dL Creatinine 0.2 L (0.7-1.2) mg/dL Glucose 114 H (65-100) mg/dL POC Glucose (70-105) Prealbumin (0.200-0.400) g/L
[2018-07-14] MEDS: HABITROL TD SCH (10:51)
--- NOTE | 2018-07-14 11:19 | Progress Note ---
Assessment and Plan 58 y/o female with acute respiratory failure secondary to volume overload and possible COPD exacerbation Post op from [facility] for perforated viscous, now with recurrent surgical issues and intubation, going back to OR today. 1. Continue nasal cannul and therapy for COPD. 2. Continue TPN, and now tolerating PO 3. Abx stopped 4. Reviewed IR note and they suggest SHAUNA when acute issues resolve, assuming they mean her abdomen. 5. Life long anticoagulation 6. Will continue to follow loosely on the floor, will see as needed over the weekend. Subjective Date of service: 07/14/18 Principal diagnosis: small bowel ischemiaperitonitis/penumonia Interval history: No acute events. Weaned down to 1.5 liters. Breathing remains stable. Objective Vital Signs - 12hr 07/13/18 07/14/18 07/14/18 23:53 04:32 07:37 Temperature 98.4 F 98.5 F Pulse Rate 102 H 107 H Pulse Rate [ 105 H Anterior Throughout] Respiratory 20 20 Rate Respiratory 18 Rate [Anterior Throughout] Blood Pressure 108/63 109/63 O2 Sat by Pulse 97 97 96 Oximetry 07/14/18 07/14/18 07:45 08:00 Temperature 99.0 F Pulse Rate 110 H Pulse Rate [ 108 H Anterior Throughout] Respiratory 18 Rate Respiratory 18 Rate [Anterior Throughout] Blood Pressure 121/69 O2 Sat by Pulse 94 Oximetry Constitutional: no acute distress, alert Eyes: non-icteric ENT: oropharynx moist, other (ETT in position) Neck: supple, no JVD Effort: normal Ascultation: Bilateral: clear, diminished breath sounds, wheezes, rales Percussion: Bilateral: not dull Tactile fremitus: Bilateral: normal Cardiovascular: regular rate and rhythm Gastrointestinal: hypoactive bowel sounds, tender, other (mildly distended,open wound covered exploratory lab,colostomy) Integumentary: normal Extremities: no cyanosis, no edema Neurologic: normal mental status, non-focal exam Psychiatric: mood appropriate CBC and BMP: 07/14/18 00:55 07/14/18 05:35 ABG, PT/INR, D-dimer: ABG POC ABG pH 7.431 (7.35-7.45) 07/10/18 04:32 POC ABG pCO2 48.5 (35-45) H 07/10/18 04:32 POC ABG pO2 104 (80-105) 07/10/18 04:32 POC ABG HCO3 32.2 (22-26 mml/L) 07/10/18 04:32 POC ABG Total CO2 34 (23-27mmol/L) 07/10/18 04:32 POC ABG O2 Sat 98 07/10/18 04:32 PT/INR, D-dimer PT 23.7 Sec. (12.2-14.9) H 07/14/18 05:35 INR 1.97 (0.87-1.13) H 07/14/18 05:35 Abnormal lab findings: Abnormal Labs 06/24/18 06/24/18 06/24/18 11:18 11:19 11:19 WBC 19.0 H RBC Hgb Hct MCHC 35 H RDW Plt Count 457 H Lymph % (Auto) [place] # Baso # Seg Neutrophils % Seg Neuts % (Manual) 88.0 H Lymphocytes % (Manual) 2.0 L Monocytes % (Manual) Seg Neutrophils # Seg Neutrophils # Man 16.7 H Lymphocytes # (Manual) 0.4 L Monocytes # (Manual) PT 15.9 H INR 1.19 H APTT Heparin Anti-Xa Level POC ABG pH POC ABG pCO2 POC ABG pO2 Sodium 136 L Potassium 2.8 L* Chloride 96.7 L Carbon Dioxide BUN Creatinine 0.4 L Glucose 146 H POC Glucose Calcium Phosphorus TIBC Total Bilirubin 1.90 H Direct Bilirubin 1.5 H Alkaline Phosphatase 264 H C-Reactive Protein NT-Pro-B Natriuret Pep Total Protein Albumin 3.0 L Prealbumin Lipase 8 L Vitamin B12 Folate Ur Specific [place] Vancomycin Trough Crossmatch 06/24/18 06/24/18 06/25/18 13:00 19:47 06:55 WBC 18.3 H RBC Hgb Hct MCHC 35 H RDW Plt Count 481 H Lymph % (Auto) [place] # Baso # Seg Neutrophils % Seg Neuts % (Manual) 88.0 H Lymphocytes % (Manual) 4.0 L Monocytes % (Manual) Seg Neutrophils # Seg Neutrophils # Man 16.1 H Lymphocytes # (Manual) 0.7 L Monocytes # (Manual) PT INR APTT Heparin Anti-Xa Level POC ABG pH POC ABG pCO2 POC ABG pO2 Sodium Potassium 3.5 L D Chloride Carbon Dioxide 21 L BUN Creatinine 0.3 L Glucose 166 H POC Glucose Calcium 7.4 L D Phosphorus TIBC Total Bilirubin Direct Bilirubin Alkaline Phosphatase C-Reactive Protein NT-Pro-B Natriuret Pep Total Protein Albumin Prealbumin Lipase Vitamin B12 Folate Ur Specific [place] > 1.059 H Vancomycin Trough Crossmatch 06/25/18 06/26/18 06/26/18 06:55 11:54 11:54 WBC 19.9 H RBC 3.48 L Hgb Hct MCHC RDW Plt Count 583 H Lymph % (Auto) [place] # Baso # Seg Neutrophils % Seg Neuts % (Manual) Lymphocytes % (Manual) Monocytes % (Manual) Seg Neutrophils # Seg Neutrophils # Man Lymphocytes # (Manual) Monocytes # (Manual) PT INR APTT Heparin Anti-Xa Level POC ABG pH POC ABG pCO2 POC ABG pO2 Sodium 146 H Potassium 3.5 L Chloride 108.3 H 109.9 H Carbon Dioxide BUN Creatinine 0.4 L 0.3 L Glucose 159 H 153 H POC Glucose Calcium 7.7 L 8.2 L Phosphorus TIBC Total Bilirubin Direct Bilirubin Alkaline Phosphatase 152 H C-Reactive Protein NT-Pro-B Natriuret Pep Total Protein 5.3 L Albumin 2.1 L Prealbumin Lipase Vitamin B12 Folate Ur Specific [place] Vancomycin Trough Crossmatch 06/26/18 06/26/18 06/27/18 14:12 20:37 02:04 WBC RBC Hgb Hct MCHC RDW Plt Count Lymph % (Auto) [place] # Baso # Seg Neutrophils % Seg Neuts % (Manual) Lymphocytes % (Manual) Monocytes % (Manual) Seg Neutrophils # Seg Neutrophils # Man Lymphocytes # (Manual) Monocytes # (Manual) PT INR APTT Heparin Anti-Xa Level POC ABG pH 7.471 H 7.458 H POC ABG pCO2 POC ABG pO2 74 L 70 L Sodium Potassium Chloride Carbon Dioxide BUN Creatinine Glucose POC Glucose Calcium Phosphorus TIBC Total Bilirubin Direct Bilirubin Alkaline Phosphatase C-Reactive Protein 25.70 H NT-Pro-B Natriuret Pep Total Protein Albumin Prealbumin Lipase Vitamin B12 Folate Ur Specific [place] Vancomycin Trough Crossmatch 06/27/18 06/27/18 06/28/18 09:19 11:50 00:17 WBC 24.5 H 37.2 H RBC Hgb Hct MCHC RDW 15.4 H Plt Count 583 H 657 H Lymph % (Auto) [place] # Baso # Seg Neutrophils % Seg Neuts % (Manual) 98.0 H 88.5 H Lymphocytes % (Manual) 1.0 L 4.0 L Monocytes % (Manual) Seg Neutrophils # Seg Neutrophils # Man 24.0 H 32.9 H Lymphocytes # (Manual) 0.2 L Monocytes # (Manual) 1.1 H PT INR APTT Heparin Anti-Xa Level POC ABG pH POC ABG pCO2 POC ABG pO2 Sodium 146 H Potassium 3.5 L Chloride Carbon Dioxide BUN Creatinine 0.3 L Glucose 176 H POC Glucose Calcium 8.2 L Phosphorus TIBC Total Bilirubin Direct Bilirubin Alkaline Phosphatase C-Reactive Protein NT-Pro-B Natriuret Pep Total Protein Albumin Prealbumin Lipase Vitamin B12 Folate Ur Specific [place] Vancomycin Trough Crossmatch 06/28/18 06/28/18 06/28/18 09:56 09:56 09:56 WBC 37.8 H RBC Hgb Hct MCHC RDW 15.3 H Plt Count 634 H Lymph % (Auto) [place] # Baso # Seg Neutrophils % Seg Neuts % (Manual) Lymphocytes % (Manual) Monocytes % (Manual) Seg Neutrophils # Seg Neutrophils # Man Lymphocytes # (Manual) Monocytes # (Manual) PT INR APTT Heparin Anti-Xa Level POC ABG pH POC ABG pCO2 POC ABG pO2 Sodium 146 H Potassium 2.8 L* Chloride Carbon Dioxide 31 H BUN Creatinine 0.3 L Glucose 142 H POC Glucose Calcium 8.2 L Phosphorus TIBC Total Bilirubin Direct Bilirubin Alkaline Phosphatase C-Reactive Protein NT-Pro-B Natriuret Pep 1572 H Total Protein Albumin Prealbumin Lipase Vitamin B12 Folate Ur Specific [place] Vancomycin Trough Crossmatch 06/28/18 06/28/18 06/29/18 13:19 21:24 00:57 WBC 28.9 H RBC Hgb Hct MCHC RDW Plt Count 681 H Lymph % (Auto) [place] # Baso # Seg Neutrophils % Seg Neuts % (Manual) 93.0 H Lymphocytes % (Manual) 1.5 L Monocytes % (Manual) Seg Neutrophils # Seg Neutrophils # Man 26.9 H Lymphocytes # (Manual) 0.4 L Monocytes # (Manual) PT INR APTT Heparin Anti-Xa Level POC ABG pH 7.470 H POC ABG pCO2 53.0 H POC ABG pO2 120 H Sodium Potassium 3.0 L Chloride Carbon Dioxide 33 H BUN Creatinine 0.3 L Glucose 116 H POC Glucose Calcium 8.2 L Phosphorus TIBC Total Bilirubin Direct Bilirubin Alkaline Phosphatase C-Reactive Protein NT-Pro-B Natriuret Pep Total Protein Albumin Prealbumin Lipase Vitamin B12 Folate Ur Specific [place] Vancomycin Trough Crossmatch 06/29/18 06/29/18 06/29/18 05:58 05:58 12:21 WBC 25.8 H RBC Hgb Hct MCHC RDW Plt Count 661 H Lymph % (Auto) [place] # Baso # Seg Neutrophils % Seg Neuts % (Manual) Lymphocytes % (Manual) Monocytes % (Manual) Seg Neutrophils # Seg Neutrophils # Man Lymphocytes # (Manual) Monocytes # (Manual) PT INR APTT Heparin Anti-Xa Level POC ABG pH POC ABG pCO2 POC ABG pO2 Sodium Potassium 2.7 L* Chloride Carbon Dioxide 35 H BUN Creatinine 0.3 L Glucose 132 H POC Glucose 130 H Calcium 8.2 L Phosphorus TIBC Total Bilirubin Direct Bilirubin Alkaline Phosphatase C-Reactive Protein NT-Pro-B Natriuret Pep Total Protein Albumin Prealbumin Lipase Vitamin B12 Folate Ur Specific [place] Vancomycin Trough Crossmatch 06/29/18 06/29/18 06/30/18 17:53 18:52 05:02 WBC RBC Hgb Hct MCHC RDW Plt Count Lymph % (Auto) [place] # Baso # Seg Neutrophils % Seg Neuts % (Manual) Lymphocytes % (Manual) Monocytes % (Manual) Seg Neutrophils # Seg Neutrophils # Man Lymphocytes # (Manual) Monocytes # (Manual) PT INR APTT Heparin Anti-Xa Level POC ABG pH POC ABG pCO2 POC ABG pO2 Sodium Potassium 3.1 L Chloride Carbon Dioxide 33 H BUN Creatinine 0.3 L Glucose 129 H POC Glucose 109 H 106 H Calcium 8.2 L Phosphorus TIBC Total Bilirubin Direct Bilirubin Alkaline Phosphatase C-Reactive Protein NT-Pro-B Natriuret Pep Total Protein Albumin Prealbumin Lipase Vitamin B12 Folate Ur Specific [place] Vancomycin Trough Crossmatch 06/30/18 06/30/18 06/30/18 07:19 07:19 16:17 WBC 23.1 H RBC Hgb Hct MCHC RDW Plt Count 652 H Lymph % (Auto) [place] # Baso # Seg Neutrophils % Seg Neuts % (Manual) Lymphocytes % (Manual) Monocytes % (Manual) Seg Neutrophils # Seg Neutrophils # Man Lymphocytes # (Manual) Monocytes # (Manual) PT INR APTT Heparin Anti-Xa Level POC ABG pH POC ABG pCO2 POC ABG pO2 Sodium Potassium 2.8 L* Chloride Carbon Dioxide BUN Creatinine 0.3 L Glucose 109 H POC Glucose Calcium 8.2 L Phosphorus TIBC Total Bilirubin Direct Bilirubin Alkaline Phosphatase C-Reactive Protein NT-Pro-B Natriuret Pep Total Protein Albumin Prealbumin Lipase Vitamin B12 Folate Ur Specific [place] Vancomycin Trough < 4.0 L Crossmatch 06/30/18 06/30/18 06/30/18 16:17 16:17 19:00 WBC RBC Hgb Hct MCHC RDW Plt Count Lymph % (Auto) [place] # Baso # Seg Neutrophils % Seg Neuts % (Manual) Lymphocytes % (Manual) Monocytes % (Manual) Seg Neutrophils # Seg Neutrophils # Man Lymphocytes # (Manual) Monocytes # (Manual) PT INR APTT Heparin Anti-Xa Level POC ABG pH POC ABG pCO2 POC ABG pO2 Sodium Potassium 3.0 L 3.2 L Chloride Carbon Dioxide BUN Creatinine 0.3 L Glucose 138 H POC Glucose Calcium Phosphorus 2.30 L D TIBC Total Bilirubin Direct Bilirubin Alkaline Phosphatase C-Reactive Protein NT-Pro-B Natriuret Pep Total Protein Albumin Prealbumin Lipase Vitamin B12 Folate Ur Specific [place] Vancomycin Trough Crossmatch 07/01/18 07/01/18 07/01/18 04:04 04:04 12:21 WBC 26.3 H RBC Hgb Hct MCHC RDW Plt Count Lymph % (Auto) [place] # Baso # Seg Neutrophils % Seg Neuts % (Manual) Lymphocytes % (Manual) Monocytes % (Manual) Seg Neutrophils # Seg Neutrophils # Man Lymphocytes # (Manual) Monocytes # (Manual) PT INR APTT Heparin Anti-Xa Level POC ABG pH POC ABG pCO2 POC ABG pO2 Sodium 147 H Potassium Chloride Carbon Dioxide BUN 22 H Creatinine 0.3 L Glucose 126 H POC Glucose 190 H Calcium Phosphorus TIBC Total Bilirubin Direct Bilirubin Alkaline Phosphatase C-Reactive Protein NT-Pro-B Natriuret Pep Total Protein Albumin Prealbumin Lipase Vitamin B12 Folate Ur Specific [place] Vancomycin Trough Crossmatch 07/02/18 07/02/18 07/03/18 04:17 04:17 09:58 WBC 40.2 H* 48.6 H* RBC 3.51 L Hgb Hct MCHC RDW Plt Count Lymph % (Auto) [place] # Baso # Seg Neutrophils % Seg Neuts % (Manual) Lymphocytes % (Manual) Monocytes % (Manual) Seg Neutrophils # Seg Neutrophils # Man Lymphocytes # (Manual) Monocytes # (Manual) PT INR APTT Heparin Anti-Xa Level POC ABG pH POC ABG pCO2 POC ABG pO2 Sodium Potassium 3.4 L Chloride Carbon Dioxide 32 H BUN 30 H Creatinine 0.3 L Glucose 166 H POC Glucose Calcium Phosphorus TIBC Total Bilirubin Direct Bilirubin Alkaline Phosphatase C-Reactive Protein NT-Pro-B Natriuret Pep Total Protein Albumin Prealbumin Lipase Vitamin B12 Folate Ur Specific [place] Vancomycin Trough Crossmatch 07/03/18 07/03/18 07/04/18 09:58 11:07 05:37 WBC 48.5 H* RBC 3.53 L Hgb Hct MCHC RDW Plt Count 477 H Lymph % (Auto) [place] # Baso # Seg Neutrophils % Seg Neuts % (Manual) Lymphocytes % (Manual) Monocytes % (Manual) Seg Neutrophils # Seg Neutrophils # Man Lymphocytes # (Manual) Monocytes # (Manual) PT INR APTT Heparin Anti-Xa Level POC ABG pH POC ABG pCO2 POC ABG pO2 Sodium Potassium 3.5 L Chloride Carbon Dioxide 31 H BUN 33 H Creatinine 0.3 L Glucose 162 H POC Glucose Calcium Phosphorus TIBC Total Bilirubin Direct Bilirubin Alkaline Phosphatase C-Reactive Protein 13.20 H NT-Pro-B Natriuret Pep Total Protein Albumin Prealbumin Lipase Vitamin B12 Folate Ur Specific [place] Vancomycin Trough Crossmatch 07/04/18 07/04/18 07/04/18 05:37 17:54 17:54 WBC RBC Hgb Hct MCHC RDW Plt Count Lymph % (Auto) [place] # Baso # Seg Neutrophils % Seg Neuts % (Manual) Lymphocytes % (Manual) Monocytes % (Manual) Seg Neutrophils # Seg Neutrophils # Man Lymphocytes # (Manual) Monocytes # (Manual) PT INR APTT Heparin Anti-Xa Level POC ABG pH POC ABG pCO2 POC ABG pO2 Sodium Potassium 3.4 L Chloride Carbon Dioxide 32 H BUN 30 H Creatinine 0.3 L Glucose 146 H POC Glucose Calcium Phosphorus TIBC Total Bilirubin Direct Bilirubin Alkaline Phosphatase C-Reactive Protein NT-Pro-B Natriuret Pep Total Protein Albumin Prealbumin Lipase Vitamin B12 Folate Ur Specific [place] Vancomycin Trough Crossmatch See Detail See Detail 07/04/18 07/04/18 07/04/18 19:00 19:00 21:50 WBC RBC Hgb 9.5 L Hct 28.7 L MCHC RDW Plt Count 512 H Lymph % (Auto) [place] # Baso # Seg Neutrophils % Seg Neuts % (Manual) Lymphocytes % (Manual) Monocytes % (Manual) Seg Neutrophils # Seg Neutrophils # Man Lymphocytes # (Manual) Monocytes # (Manual) PT 18.7 H INR 1.46 H APTT Heparin Anti-Xa Level POC ABG pH 7.469 H POC ABG pCO2 45.8 H POC ABG pO2 109 H Sodium Potassium Chloride Carbon Dioxide BUN Creatinine Glucose POC Glucose Calcium Phosphorus TIBC Total Bilirubin Direct Bilirubin Alkaline Phosphatase C-Reactive Protein NT-Pro-B Natriuret Pep Total Protein Albumin Prealbumin Lipase Vitamin B12 Folate Ur Specific [place] Vancomycin Trough Crossmatch 07/05/18 07/05/18 07/05/18 03:14 03:14 03:14 WBC 36.6 H RBC 3.12 L Hgb 9.1 L Hct 27.5 L MCHC RDW Plt Count 529 H Lymph % (Auto) [place] # Baso # Seg Neutrophils % Seg Neuts % (Manual) Lymphocytes % (Manual) Monocytes % (Manual) Seg Neutrophils # Seg Neutrophils # Man Lymphocytes # (Manual) Monocytes # (Manual) PT INR APTT Heparin Anti-Xa Level 0.10 L POC ABG pH POC ABG pCO2 POC ABG pO2 Sodium Potassium Chloride Carbon Dioxide BUN 29 H Creatinine 0.2 L Glucose 149 H POC Glucose Calcium 8.1 L Phosphorus TIBC Total Bilirubin Direct Bilirubin Alkaline Phosphatase C-Reactive Protein NT-Pro-B Natriuret Pep Total Protein 4.5 L Albumin 1.6 L Prealbumin Lipase Vitamin B12 Folate Ur Specific [place] Vancomycin Trough Crossmatch 07/05/18 07/05/18 07/05/18 04:45 10:57 10:57 WBC RBC Hgb Hct MCHC RDW Plt Count Lymph % (Auto) [place] # Baso # Seg Neutrophils % Seg Neuts % (Manual) Lymphocytes % (Manual) Monocytes % (Manual) Seg Neutrophils # Seg Neutrophils # Man Lymphocytes # (Manual) Monocytes # (Manual) PT INR APTT Heparin Anti-Xa Level < 0.10 L POC ABG pH POC ABG pCO2 50.6 H POC ABG pO2 181 H Sodium Potassium Chloride Carbon Dioxide BUN Creatinine Glucose POC Glucose Calcium Phosphorus TIBC Total Bilirubin Direct Bilirubin Alkaline Phosphatase C-Reactive Protein NT-Pro-B Natriuret Pep Total Protein Albumin Prealbumin Lipase Vitamin B12 Folate Ur Specific [place] Vancomycin Trough 38.9 H Crossmatch 07/05/18 07/06/18 07/06/18 18:27 02:00 04:48 WBC RBC Hgb Hct MCHC RDW Plt Count Lymph % (Auto) [place] # Baso # Seg Neutrophils % Seg Neuts % (Manual) Lymphocytes % (Manual) Monocytes % (Manual) Seg Neutrophils # Seg Neutrophils # Man Lymphocytes # (Manual) Monocytes # (Manual) PT INR APTT Heparin Anti-Xa Level < 0.10 L 0.23 L POC ABG pH POC ABG pCO2 POC ABG pO2 118 H Sodium Potassium Chloride Carbon Dioxide BUN Creatinine Glucose POC Glucose Calcium Phosphorus TIBC Total Bilirubin Direct Bilirubin Alkaline Phosphatase C-Reactive Protein NT-Pro-B Natriuret Pep Total Protein Albumin Prealbumin Lipase Vitamin B12 Folate Ur Specific [place] Vancomycin Trough Crossmatch 07/06/18 07/06/18 07/06/18 05:00 05:00 12:05 WBC 23.1 H RBC 2.50 L Hgb 7.3 L Hct 22.3 L MCHC RDW Plt Count 541 H Lymph % (Auto) [place] # Baso # Seg Neutrophils % Seg Neuts % (Manual) Lymphocytes % (Manual) Monocytes % (Manual) Seg Neutrophils # Seg Neutrophils # Man Lymphocytes # (Manual) Monocytes # (Manual) PT INR APTT Heparin Anti-Xa Level 0.14 L POC ABG pH POC ABG pCO2 POC ABG pO2 Sodium Potassium Chloride 109.8 H Carbon Dioxide BUN 27 H Creatinine 0.2 L Glucose 157 H POC Glucose Calcium 7.7 L Phosphorus 1.60 L TIBC Total Bilirubin Direct Bilirubin Alkaline Phosphatase C-Reactive Protein NT-Pro-B Natriuret Pep Total Protein 4.5 L Albumin 1.7 L Prealbumin Lipase Vitamin B12 Folate Ur Specific [place] Vancomycin Trough Crossmatch 07/06/18 07/06/18 07/07/18 17:29 19:45 00:17 WBC RBC Hgb Hct MCHC RDW Plt Count Lymph % (Auto) [place] # Baso # Seg Neutrophils % Seg Neuts % (Manual) Lymphocytes % (Manual) Monocytes % (Manual) Seg Neutrophils # Seg Neutrophils # Man Lymphocytes # (Manual) Monocytes # (Manual) PT INR APTT Heparin Anti-Xa Level 0.18 L POC ABG pH POC ABG pCO2 POC ABG pO2 Sodium Potassium Chloride Carbon Dioxide BUN Creatinine Glucose POC Glucose 141 H 143 H Calcium Phosphorus TIBC Total Bilirubin Direct Bilirubin Alkaline Phosphatase C-Reactive Protein NT-Pro-B Natriuret Pep Total Protein Albumin Prealbumin Lipase Vitamin B12 Folate Ur Specific [place] Vancomycin Trough Crossmatch 07/07/18 07/07/18 07/07/18 02:14 02:14 05:09 WBC RBC Hgb Hct MCHC RDW Plt Count Lymph % (Auto) [place] # Baso # Seg Neutrophils % Seg Neuts % (Manual) Lymphocytes % (Manual) Monocytes % (Manual) Seg Neutrophils # Seg Neutrophils # Man Lymphocytes # (Manual) Monocytes # (Manual) PT INR APTT Heparin Anti-Xa Level < 0.10 L POC ABG pH POC ABG pCO2 POC ABG pO2 Sodium Potassium 3.4 L Chloride Carbon Dioxide BUN Creatinine < 0.2 L Glucose 127 H POC Glucose 126 H Calcium 7.6 L Phosphorus 2.10 L D TIBC Total Bilirubin Direct Bilirubin Alkaline Phosphatase C-Reactive Protein NT-Pro-B Natriuret Pep Total Protein Albumin Prealbumin Lipase Vitamin B12 Folate Ur Specific [place] Vancomycin Trough Crossmatch 07/07/18 07/07/18 07/07/18 07:08 10:57 11:50 WBC 19.3 H RBC 2.49 L Hgb 7.2 L Hct 22.2 L MCHC RDW Plt Count 517 H Lymph % (Auto) [place] # Baso # Seg Neutrophils % Seg Neuts % (Manual) Lymphocytes % (Manual) Monocytes % (Manual) Seg Neutrophils # Seg Neutrophils # Man Lymphocytes # (Manual) Monocytes # (Manual) PT INR APTT Heparin Anti-Xa Level POC ABG pH POC ABG pCO2 POC ABG pO2 Sodium Potassium Chloride Carbon Dioxide BUN Creatinine Glucose POC Glucose 115 H Calcium Phosphorus TIBC 94 L Total Bilirubin Direct Bilirubin Alkaline Phosphatase C-Reactive Protein NT-Pro-B Natriuret Pep Total Protein Albumin Prealbumin Lipase Vitamin B12 Folate Ur Specific [place] Vancomycin Trough Crossmatch 07/07/18 07/07/18 07/07/18 11:50 11:50 15:20 WBC RBC Hgb Hct MCHC RDW Plt Count 489 H Lymph % (Auto) [place] # Baso # Seg Neutrophils % Seg Neuts % (Manual) Lymphocytes % (Manual) Monocytes % (Manual) Seg Neutrophils # Seg Neutrophils # Man Lymphocytes # (Manual) Monocytes # (Manual) PT INR APTT Heparin Anti-Xa Level POC ABG pH POC ABG pCO2 POC ABG pO2 Sodium Potassium Chloride Carbon Dioxide BUN Creatinine Glucose POC Glucose Calcium Phosphorus TIBC Total Bilirubin Direct Bilirubin Alkaline Phosphatase C-Reactive Protein NT-Pro-B Natriuret Pep Total Protein Albumin Prealbumin Lipase Vitamin B12 924.8 H Folate 4.92 L Ur Specific [place] Vancomycin Trough Crossmatch 07/07/18 07/07/18 07/07/18 15:20 18:16 20:04 WBC RBC Hgb Hct MCHC RDW Plt Count Lymph % (Auto) [place] # Baso # Seg Neutrophils % Seg Neuts % (Manual) Lymphocytes % (Manual) Monocytes % (Manual) Seg Neutrophils # Seg Neutrophils # Man Lymphocytes # (Manual) Monocytes # (Manual) PT 15.2 H INR APTT 42.2 H Heparin Anti-Xa Level < 0.10 L POC ABG pH POC ABG pCO2 POC ABG pO2 Sodium Potassium Chloride Carbon Dioxide BUN Creatinine Glucose POC Glucose 125 H Calcium Phosphorus TIBC Total Bilirubin Direct Bilirubin Alkaline Phosphatase C-Reactive Protein NT-Pro-B Natriuret Pep Total Protein Albumin Prealbumin Lipase Vitamin B12 Folate Ur Specific [place] Vancomycin Trough Crossmatch 07/08/18 07/08/18 07/08/18 01:07 03:40 03:40 WBC RBC Hgb Hct MCHC RDW Plt Count 477 H Lymph % (Auto) [place] # Baso # Seg Neutrophils % Seg Neuts % (Manual) Lymphocytes % (Manual) Monocytes % (Manual) Seg Neutrophils # Seg Neutrophils # Man Lymphocytes # (Manual) Monocytes # (Manual) PT INR APTT Heparin Anti-Xa Level POC ABG pH POC ABG pCO2 POC ABG pO2 Sodium Potassium Chloride Carbon Dioxide BUN Creatinine < 0.2 L Glucose 161 H POC Glucose 132 H Calcium 7.9 L Phosphorus TIBC Total Bilirubin Direct Bilirubin Alkaline Phosphatase C-Reactive Protein NT-Pro-B Natriuret Pep Total Protein Albumin Prealbumin Lipase Vitamin B12 Folate Ur Specific [place] Vancomycin Trough Crossmatch 07/08/18 07/08/18 07/08/18 06:16 11:35 17:28 WBC RBC Hgb Hct MCHC RDW Plt Count Lymph % (Auto) [place] # Baso # Seg Neutrophils % Seg Neuts % (Manual) Lymphocytes % (Manual) Monocytes % (Manual) Seg Neutrophils # Seg Neutrophils # Man Lymphocytes # (Manual) Monocytes # (Manual) PT INR APTT Heparin Anti-Xa Level POC ABG pH POC ABG pCO2 POC ABG pO2 Sodium Potassium Chloride Carbon Dioxide BUN Creatinine Glucose POC Glucose 143 H 154 H 136 H Calcium Phosphorus TIBC Total Bilirubin Direct Bilirubin Alkaline Phosphatase C-Reactive Protein NT-Pro-B Natriuret Pep Total Protein Albumin Prealbumin Lipase Vitamin B12 Folate Ur Specific [place] Vancomycin Trough Crossmatch 07/08/18 07/09/18 07/09/18 23:12 04:37 05:30 WBC RBC Hgb 8.6 L Hct 25.6 L D MCHC RDW Plt Count 445 H Lymph % (Auto) [place] # Baso # Seg Neutrophils % Seg Neuts % (Manual) Lymphocytes % (Manual) Monocytes % (Manual) Seg Neutrophils # Seg Neutrophils # Man Lymphocytes # (Manual) Monocytes # (Manual) PT INR APTT Heparin Anti-Xa Level POC ABG pH POC ABG pCO2 46.9 H POC ABG pO2 120 H Sodium Potassium Chloride Carbon Dioxide BUN Creatinine Glucose POC Glucose 146 H Calcium Phosphorus TIBC Total Bilirubin Direct Bilirubin Alkaline Phosphatase C-Reactive Protein NT-Pro-B Natriuret Pep Total Protein Albumin Prealbumin Lipase Vitamin B12 Folate Ur Specific [place] Vancomycin Trough Crossmatch 07/09/18 07/09/18 07/09/18 05:30 05:34 23:41 WBC RBC Hgb Hct MCHC RDW Plt Count Lymph % (Auto) [place] # Baso # Seg Neutrophils % Seg Neuts % (Manual) Lymphocytes % (Manual) Monocytes % (Manual) Seg Neutrophils # Seg Neutrophils # Man Lymphocytes # (Manual) Monocytes # (Manual) PT INR APTT Heparin Anti-Xa Level POC ABG pH POC ABG pCO2 POC ABG pO2 Sodium Potassium 3.3 L D Chloride Carbon Dioxide 33 H BUN Creatinine < 0.2 L Glucose 145 H POC Glucose 149 H 123 H Calcium 7.8 L Phosphorus 2.40 L TIBC Total Bilirubin Direct Bilirubin Alkaline Phosphatase C-Reactive Protein NT-Pro-B Natriuret Pep Total Protein Albumin Prealbumin Lipase Vitamin B12 Folate Ur Specific [place] Vancomycin Trough Crossmatch 07/10/18 07/10/18 07/10/18 04:32 05:45 05:50 WBC 12.4 H RBC 2.83 L Hgb 8.6 L Hct 24.8 L MCHC 35 H RDW 15.3 H Plt Count 477 H Lymph % (Auto) [place] # Baso # Seg Neutrophils % Seg Neuts % (Manual) Lymphocytes % (Manual) Monocytes % (Manual) Seg Neutrophils # Seg Neutrophils # Man Lymphocytes # (Manual) Monocytes # (Manual) PT INR APTT Heparin Anti-Xa Level POC ABG pH POC ABG pCO2 48.5 H POC ABG pO2 Sodium Potassium Chloride Carbon Dioxide BUN Creatinine Glucose POC Glucose 124 H Calcium Phosphorus TIBC Total Bilirubin Direct Bilirubin Alkaline Phosphatase C-Reactive Protein NT-Pro-B Natriuret Pep Total Protein Albumin Prealbumin Lipase Vitamin B12 Folate Ur Specific [place] Vancomycin Trough Crossmatch 07/10/18 07/10/18 07/10/18 05:50 10:11 11:52 WBC RBC Hgb Hct MCHC RDW Plt Count Lymph % (Auto) [place] # Baso # Seg Neutrophils % Seg Neuts % (Manual) Lymphocytes % (Manual) Monocytes % (Manual) Seg Neutrophils # Seg Neutrophils # Man Lymphocytes # (Manual) Monocytes # (Manual) PT INR APTT Heparin Anti-Xa Level < 0.10 L POC ABG pH POC ABG pCO2 POC ABG pO2 Sodium Potassium Chloride Carbon Dioxide BUN Creatinine < 0.2 L Glucose 131 H POC Glucose 126 H Calcium 8.3 L Phosphorus TIBC Total Bilirubin Direct Bilirubin Alkaline Phosphatase C-Reactive Protein NT-Pro-B Natriuret Pep Total Protein 4.8 L Albumin 1.9 L Prealbumin Lipase Vitamin B12 Folate Ur Specific [place] Vancomycin Trough Crossmatch 07/10/18 07/10/18 07/10/18 17:17 18:41 23:24 WBC RBC Hgb Hct MCHC RDW Plt Count Lymph % (Auto) [place] # Baso # Seg Neutrophils % Seg Neuts % (Manual) Lymphocytes % (Manual) Monocytes % (Manual) Seg Neutrophils # Seg Neutrophils # Man Lymphocytes # (Manual) Monocytes # (Manual) PT INR APTT Heparin Anti-Xa Level POC ABG pH POC ABG pCO2 POC ABG pO2 Sodium Potassium Chloride Carbon Dioxide BUN Creatinine Glucose POC Glucose 155 H 134 H 175 H Calcium Phosphorus TIBC Total Bilirubin Direct Bilirubin Alkaline Phosphatase C-Reactive Protein NT-Pro-B Natriuret Pep Total Protein Albumin Prealbumin Lipase Vitamin B12 Folate Ur Specific [place] Vancomycin Trough Crossmatch 07/11/18 07/11/18 07/11/18 05:10 05:13 05:13 WBC 17.7 H RBC 3.19 L Hgb 9.4 L Hct 28.1 L MCHC RDW Plt Count 528 H Lymph % (Auto) [place] # Baso # Seg Neutrophils % Seg Neuts % (Manual) 71.0 H Lymphocytes % (Manual) 10.0 L Monocytes % (Manual) 9.0 H Seg Neutrophils # Seg Neutrophils # Man 12.6 H Lymphocytes # (Manual) Monocytes # (Manual) 1.6 H PT INR APTT Heparin Anti-Xa Level 0.28 L POC ABG pH POC ABG pCO2 POC ABG pO2 Sodium Potassium Chloride Carbon Dioxide BUN Creatinine Glucose POC Glucose 135 H Calcium Phosphorus TIBC Total Bilirubin Direct Bilirubin Alkaline Phosphatase C-Reactive Protein NT-Pro-B Natriuret Pep Total Protein Albumin Prealbumin Lipase Vitamin B12 Folate Ur Specific [place] Vancomycin Trough Crossmatch 07/11/18 07/11/18 07/11/18 05:13 11:33 12:10 WBC RBC Hgb Hct MCHC RDW Plt Count Lymph % (Auto) [place] # Baso # Seg Neutrophils % Seg Neuts % (Manual) Lymphocytes % (Manual) Monocytes % (Manual) Seg Neutrophils # Seg Neutrophils # Man Lymphocytes # (Manual) Monocytes # (Manual) PT INR APTT Heparin Anti-Xa Level < 0.10 L POC ABG pH POC ABG pCO2 POC ABG pO2 Sodium Potassium Chloride Carbon Dioxide BUN Creatinine < 0.2 L Glucose 137 H POC Glucose 153 H Calcium Phosphorus TIBC Total Bilirubin Direct Bilirubin Alkaline Phosphatase 149 H C-Reactive Protein NT-Pro-B Natriuret Pep Total Protein 5.5 L Albumin 2.5 L Prealbumin Lipase Vitamin B12 Folate Ur Specific [place] Vancomycin Trough Crossmatch 07/11/18 07/11/18 07/11/18 16:00 18:12 23:45 WBC RBC Hgb Hct MCHC RDW Plt Count Lymph % (Auto) [place] # Baso # Seg Neutrophils % Seg Neuts % (Manual) Lymphocytes % (Manual) Monocytes % (Manual) Seg Neutrophils # Seg Neutrophils # Man Lymphocytes # (Manual) Monocytes # (Manual) PT 15.1 H INR APTT Heparin Anti-Xa Level POC ABG pH POC ABG pCO2 POC ABG pO2 Sodium Potassium Chloride Carbon Dioxide BUN Creatinine Glucose POC Glucose 146 H 149 H Calcium Phosphorus TIBC Total Bilirubin Direct Bilirubin Alkaline Phosphatase C-Reactive Protein NT-Pro-B Natriuret Pep Total Protein Albumin Prealbumin Lipase Vitamin B12 Folate Ur Specific [place] Vancomycin Trough Crossmatch 07/12/18 07/12/18 07/12/18 04:16 04:16 04:16 WBC RBC Hgb Hct MCHC RDW Plt Count 533 H Lymph % (Auto) [place] # Baso # Seg Neutrophils % Seg Neuts % (Manual) Lymphocytes % (Manual) Monocytes % (Manual) Seg Neutrophils # Seg Neutrophils # Man Lymphocytes # (Manual) Monocytes # (Manual) PT 15.6 H INR 1.17 H APTT Heparin Anti-Xa Level POC ABG pH POC ABG pCO2 POC ABG pO2 Sodium Potassium 3.2 L Chloride Carbon Dioxide BUN Creatinine < 0.2 L Glucose 148 H POC Glucose Calcium Phosphorus TIBC Total Bilirubin Direct Bilirubin Alkaline Phosphatase 168 H C-Reactive Protein NT-Pro-B Natriuret Pep Total Protein 6.1 L Albumin 2.4 L Prealbumin Lipase Vitamin B12 Folate Ur Specific [place] Vancomycin Trough Crossmatch 07/12/18 07/12/18 07/12/18 05:19 11:37 22:49 WBC RBC Hgb Hct MCHC RDW Plt Count Lymph % (Auto) [place] # Baso # Seg Neutrophils % Seg Neuts % (Manual) Lymphocytes % (Manual) Monocytes % (Manual) Seg Neutrophils # Seg Neutrophils # Man Lymphocytes # (Manual) Monocytes # (Manual) PT INR APTT Heparin Anti-Xa Level POC ABG pH POC ABG pCO2 POC ABG pO2 Sodium Potassium Chloride Carbon Dioxide BUN Creatinine Glucose POC Glucose 151 H 152 H 141 H Calcium Phosphorus TIBC Total Bilirubin Direct Bilirubin Alkaline Phosphatase C-Reactive Protein NT-Pro-B Natriuret Pep Total Protein Albumin Prealbumin Lipase Vitamin B12 Folate Ur Specific [place] Vancomycin Trough Crossmatch 07/13/18 07/13/18 07/13/18 04:07 04:07 04:07 WBC RBC Hgb Hct MCHC RDW Plt Count 520 H Lymph % (Auto) [place] # Baso # Seg Neutrophils % Seg Neuts % (Manual) Lymphocytes % (Manual) Monocytes % (Manual) Seg Neutrophils # Seg Neutrophils # Man Lymphocytes # (Manual) Monocytes # (Manual) PT 17.1 H INR 1.31 H APTT Heparin Anti-Xa Level POC ABG pH POC ABG pCO2 POC ABG pO2 Sodium Potassium 3.1 L Chloride Carbon Dioxide BUN Creatinine 0.2 L Glucose 110 H POC Glucose Calcium Phosphorus TIBC Total Bilirubin Direct Bilirubin Alkaline Phosphatase C-Reactive Protein NT-Pro-B Natriuret Pep Total Protein Albumin Prealbumin Lipase Vitamin B12 Folate Ur Specific [place] Vancomycin Trough Crossmatch 07/13/18 07/13/18 07/13/18 11:45 16:26 22:18 WBC RBC Hgb Hct MCHC RDW Plt Count Lymph % (Auto) [place] # Baso # Seg Neutrophils % Seg Neuts % (Manual) Lymphocytes % (Manual) Monocytes % (Manual) Seg Neutrophils # Seg Neutrophils # Man Lymphocytes # (Manual) Monocytes # (Manual) PT INR APTT Heparin Anti-Xa Level POC ABG pH POC ABG pCO2 POC ABG pO2 Sodium Potassium Chloride Carbon Dioxide BUN Creatinine Glucose POC Glucose 137 H 129 H 133 H Calcium Phosphorus TIBC Total Bilirubin Direct Bilirubin Alkaline Phosphatase C-Reactive Protein NT-Pro-B Natriuret Pep Total Protein Albumin Prealbumin Lipase Vitamin B12 Folate Ur Specific [place] Vancomycin Trough Crossmatch 07/14/18 07/14/18 07/14/18 00:55 05:35 05:35 WBC 19.0 H RBC 3.22 L Hgb 9.5 L Hct 28.4 L MCHC RDW 15.5 H Plt Count 472 H Lymph % (Auto) 11.4 L [place] # 1.2 H Baso # 0.2 H Seg Neutrophils % 80.8 H Seg Neuts % (Manual) Lymphocytes % (Manual) Monocytes % (Manual) Seg Neutrophils # 15.3 H Seg Neutrophils # Man Lymphocytes # (Manual) Monocytes # (Manual) PT 23.7 H INR 1.97 H APTT Heparin Anti-Xa Level POC ABG pH POC ABG pCO2 POC ABG pO2 Sodium Potassium Chloride Carbon Dioxide BUN Creatinine Glucose POC Glucose Calcium Phosphorus TIBC Total Bilirubin Direct Bilirubin Alkaline Phosphatase C-Reactive Protein NT-Pro-B Natriuret Pep Total Protein Albumin Prealbumin 0.185 L Lipase Vitamin B12 Folate Ur Specific [place] Vancomycin Trough Crossmatch 07/14/18 05:35 WBC RBC Hgb Hct MCHC RDW Plt Count Lymph % (Auto) [place] # Baso # Seg Neutrophils % Seg Neuts % (Manual) Lymphocytes % (Manual) Monocytes % (Manual) Seg Neutrophils # Seg Neutrophils # Man Lymphocytes # (Manual) Monocytes # (Manual) PT INR APTT Heparin Anti-Xa Level POC ABG pH POC ABG pCO2 POC ABG pO2 Sodium Potassium Chloride Carbon Dioxide BUN 20 H Creatinine 0.2 L Glucose 114 H POC Glucose Calcium Phosphorus TIBC Total Bilirubin Direct Bilirubin Alkaline Phosphatase C-Reactive Protein NT-Pro-B Natriuret Pep Total Protein Albumin Prealbumin Lipase Vitamin B12 Folate Ur Specific [place] Vancomycin Trough Crossmatch
--- NOTE | 2018-07-14 13:02 | Progress Note ---
Assessment and Plan Assessment and plan: --Hypokalemia; corrected, closely monitor electrolytes --Acute Mesenteric ischemia; with ischemic bowel/gangrene bowel Sigmoid diverticulitis with perforation of distal sigmoid colon Patient underwent multiple surgical procedures as mentioned below/management per surgery 1) Abdominal re-exploration and washout, cholecystectomy, primary closure of abdominal wall 07/10/18, POD 1 2) exploratory laparotomy, small bowel resection with primary anastamosis, right hemicolectomy with ileocolonic anastamosis,temporary closure of abdomen with abthera vac 07/07/18 - POD#5; 3) Exploratory laparotomy, small bowel resection, partial colon resection, temporary abdominal closure with abthera vac 07/04/18, POD7 ; and 4) Exploratory laparotomy, Ezequiel's procedure 06/24/18 Patient tolerating full liquid diet, advance diet per surgery, wean off TPN Physical therapy increase ambulation --Acute hypoxic respiratory failure;Requiring intubation , extubated Oxygen, titrate O2 sats to monitor 90%, evaluate for home oxygen --Acute exacerbation of COPD; symptoms significantly improved --Acute SMA/SMV/distal aortic Thrombosis; vascular following, on heparin drip and Coumadin Patient may need lifelong anticoagulation per vascular, INR 1.97, target INR 2-3 DC heparin drip once INR reaches more than 2 --Sepsis; s/p cefepime and fluconazole and Flagyl, Monitor off antibiotics ID following --Leukocytosis; secondary to sepsis, trending down --Severe malnutrition; nutrition consult, TPN --Ongoing tobacco use; smoking cessation, nicotine patch as needed --DVT prophylaxis; the patient is already on heparin drip --Physical therapy occupational therapy --Discharge planning. Case management and patient is stable Physical therapy occupational therapy Plan of care reviewed with the patient , her nurse and case management Possible discharge in 1-2 days if stable History Interval history: Patient seen and examined medical records reviewed Patient feels better no new complaints Vital signs reviewed Hospitalist Physical - Constitutional Vitals: Temp Pulse Resp BP Pulse Ox 98.3 F 123 H 18 117/59 95 07/14/18 12:11 07/14/18 12:11 07/14/18 12:11 07/14/18 12:11 07/14/18 12:11 General appearance: Present: no acute distress, well-nourished - EENT Eyes: Present: PERRL, EOM intact - Neck Neck: Present: supple, normal ROM - Respiratory Respiratory effort: normal Respiratory: bilateral: diminished, negative: rales, rhonchi, wheezing - Cardiovascular Rhythm: regular Heart Sounds: Present: S1 & S2 - Extremities Extremities: no ischemia, No edema - Abdominal General gastrointestinal: soft, non-tender, non-distended, normal bowel sounds, other (ostomy intact) - Integumentary Integumentary: Present: clear, warm - Psychiatric Psychiatric: appropriate mood/affect, cooperative - Neurologic Neurologic: moves all extremities Results - Labs CBC & Chem 7: 07/14/18 00:55 07/14/18 05:35 Labs: Laboratory Last Values WBC 19.0 K/mm3 (4.5-11.0) H 07/14/18 00:55 RBC 3.22 M/mm3 (3.65-5.03) L 07/14/18 00:55 Hgb 9.5 gm/dl (10.1-14.3) L 07/14/18 00:55 Hct 28.4 % (30.3-42.9) L 07/14/18 00:55 MCV 88 fl (79-97) 07/14/18 00:55 MCH 29 pg (28-32) 07/14/18 00:55 MCHC 33 % (30-34) 07/14/18 00:55 RDW 15.5 % (13.2-15.2) H 07/14/18 00:55 Plt Count 472 K/mm3 (140-440) H 07/14/18 00:55 Lymph % (Auto) 11.4 % (13.4-35.0) L 07/14/18 00:55 [place] % (Auto) 6.4 % (0.0-7.3) 07/14/18 00:55 Eos % (Auto) 0.4 % (0.0-4.3) 07/14/18 00:55 Baso % (Auto) 1.0 % (0.0-1.8) 07/14/18 00:55 Lymph # 2.2 K/mm3 (1.2-5.4) 07/14/18 00:55 [place] # 1.2 K/mm3 (0.0-0.8) H 07/14/18 00:55 Eos # 0.1 K/mm3 (0.0-0.4) 07/14/18 00:55 Baso # 0.2 K/mm3 (0.0-0.1) H 07/14/18 00:55 Add Manual Diff Complete 07/11/18 05:13 Total Counted 100 07/11/18 05:13 Seg Neutrophils % 80.8 % (40.0-70.0) H 07/14/18 00:55 Seg Neuts % (Manual) 71.0 % (40.0-70.0) H 07/11/18 05:13 10.0 % 07/11/18 05:13 10.0 % (13.4-35.0) L 07/11/18 05:13 Reactive Lymphs % (Man) 0 % 07/11/18 05:13 9.0 % (0.0-7.3) H 07/11/18 05:13 0 % (0.0-4.3) 07/11/18 05:13 0 % (0.0-1.8) 07/11/18 05:13 0 % 07/11/18 05:13 0 % 07/11/18 05:13 0 % 07/11/18 05:13 0 % 07/11/18 05:13 Nucleated RBC % Not Reportable 07/11/18 05:13 Seg Neutrophils # 15.3 K/mm3 (1.8-7.7) H 07/14/18 00:55 Seg Neutrophils # Man 12.6 K/mm3 (1.8-7.7) H 07/11/18 05:13 Band Neutrophils # 1.8 K/mm3 07/11/18 05:13 1.8 K/mm3 (1.2-5.4) 07/11/18 05:13 Abs React Lymphs (Man) 0.0 K/mm3 07/11/18 05:13 1.6 K/mm3 (0.0-0.8) H 07/11/18 05:13 0.0 K/mm3 (0.0-0.4) 07/11/18 05:13 0.0 K/mm3 (0.0-0.1) 07/11/18 05:13 0.0 K/mm3 07/11/18 05:13 0.0 K/mm3 07/11/18 05:13 0.0 K/mm3 07/11/18 05:13 Blast Cells # 0.0 K/mm3 07/11/18 05:13 WBC Morphology Not Reportable 07/11/18 05:13 Hypersegmented Neuts Not Reportable 07/11/18 05:13 Hyposegmented Neuts Not Reportable 07/11/18 05:13 Hypogranular Neuts Not Reportable 07/11/18 05:13 Not Reportable 07/11/18 05:13 Not Reportable 07/11/18 05:13 Not Reportable 07/11/18 05:13 Not Reportable 07/11/18 05:13 Not Reportable 07/11/18 05:13 Not Reportable 07/11/18 05:13 Appears increased 07/11/18 05:13 Not Reportable 07/11/18 05:13 Plt Clumps, EDTA Not Reportable 07/11/18 05:13 Not Reportable 07/11/18 05:13 Not Reportable 07/11/18 05:13 Not Reportable 07/11/18 05:13 Plt Morphology Comment Not Reportable 07/11/18 05:13 RBC Morphology Not Reportable 07/11/18 05:13 Dimorphic RBCs Not Reportable 07/11/18 05:13 1+ 07/11/18 05:13 Not Reportable 07/11/18 05:13 Not Reportable 07/11/18 05:13 1+ 07/11/18 05:13 Not Reportable 07/11/18 05:13 Not Reportable 07/11/18 05:13 Not Reportable 07/11/18 05:13 Not Reportable 07/11/18 05:13 Not Reportable 07/11/18 05:13 Rare 07/11/18 05:13 Not Reportable 07/11/18 05:13 Not Reportable 07/11/18 05:13 Few 07/11/18 05:13 Not Reportable 07/11/18 05:13 Not Reportable 07/11/18 05:13 Not Reportable 07/11/18 05:13 Not Reportable 07/11/18 05:13 Not Reportable 07/11/18 05:13 Not Reportable 07/11/18 05:13 Not Reportable 07/11/18 05:13 Acanthocytes (Spur) Not Reportable 07/11/18 05:13 Rouleaux Not Reportable 07/11/18 05:13 Not Reportable 07/11/18 05:13 Not Reportable 07/11/18 05:13 Not Reportable 07/11/18 05:13 Not Reportable 07/11/18 05:13 Hem Pathologist Commnt No 07/11/18 05:13 PT 23.7 Sec. (12.2-14.9) H 07/14/18 05:35 INR 1.97 (0.87-1.13) H 07/14/18 05:35 APTT 42.2 Sec. (24.2-36.6) H 07/07/18 15:20 Heparin Anti-Xa Level 0.37 U.I./ml (0.3-0.7) 07/13/18 22:30 POC ABG pH 7.431 (7.35-7.45) 07/10/18 04:32 POC ABG pCO2 48.5 (35-45) H 07/10/18 04:32 POC ABG pO2 104 (80-105) 07/10/18 04:32 POC ABG HCO3 32.2 (22-26 mml/L) 07/10/18 04:32 POC ABG Total CO2 34 (23-27mmol/L) 07/10/18 04:32 POC ABG O2 Sat 98 07/10/18 04:32 POC ABG Base Excess 8 ((-2) - (+3)mmol/L) 07/10/18 04:32 28 % 07/10/18 04:32 Sodium 142 mmol/L (137-145) 07/14/18 05:35 Potassium 4.4 mmol/L (3.6-5.0) D 07/14/18 05:35 Chloride 103.8 mmol/L (98-107) 07/14/18 05:35 Carbon Dioxide 30 mmol/L (22-30) 07/14/18 05:35 13 mmol/L 07/14/18 05:35 BUN 20 mg/dL (7-17) H 07/14/18 05:35 0.2 mg/dL (0.7-1.2) L 07/14/18 05:35 Estimated GFR > 60 ml/min 07/14/18 05:35 100 % 07/14/18 05:35 Glucose 114 mg/dL (65-100) H 07/14/18 05:35 POC Glucose 128 (70-105) H 07/14/18 11:43 Lactic Acid 1.40 mmol/L (0.7-2.0) 07/04/18 21:11 Calcium 8.4 mg/dL (8.4-10.2) 07/14/18 05:35 Phosphorus 3.00 mg/dL (2.5-4.5) 07/14/18 05:35 Magnesium 2.10 mg/dL (1.7-2.3) 07/14/18 05:35 Iron 40 ug/dL (37-170) 07/07/18 11:50 TIBC 94 mcg/dL (250-450) L 07/07/18 11:50 377.8 ng/mL (13.0-400.0) 07/07/18 11:50 0.40 mg/dL (0.1-1.2) 07/12/18 04:16 < 0.2 mg/dL (0-0.2) 07/12/18 04:16 0.2 mg/dL 07/12/18 04:16 AST 26 units/L (5-40) 07/12/18 04:16 ALT 32 units/L (7-56) 07/12/18 04:16 168 units/L (35-129) H 07/12/18 04:16 13.20 mg/dL (0.00-1.30) H 07/03/18 11:07 NT-Pro-B Natriuret Pep 1572 pg/mL (0-900) H 06/28/18 09:56 6.1 g/dL (6.3-8.2) L 07/12/18 04:16 2.4 g/dL (3.9-5) L 07/12/18 04:16 0.6 % 07/12/18 04:16 0.185 g/L (0.200-0.400) L 07/14/18 05:35 Triglycerides 127 mg/dL (2-149) 07/07/18 02:14 8 units/L (13-60) L 06/24/18 11:19 Vitamin B12 924.8 pg/mL (211-911) H 07/07/18 11:50 4.92 ng/mL (7.3-26.0) L 07/07/18 11:50 Na (Yellow) 07/03/18 Unknown Hazy (Clear) 07/03/18 Unknown 6.0 (5.0-7.0) 07/03/18 Unknown Ur Specific [place] 1.023 (1.003-1.030) 07/03/18 Unknown <15 mg/dl mg/dL (Negative) 07/03/18 Unknown Neg mg/dL (Negative) 07/03/18 Unknown Neg mg/dL (Negative) 07/03/18 Unknown Sm (Negative) 07/03/18 Unknown Neg (Negative) 07/03/18 Unknown Neg (Negative) 07/03/18 Unknown < 2.0 mg/dL (<2.0) 07/03/18 Unknown Ur Leukocyte Esterase Neg (Negative) 07/03/18 Unknown 1.0 /HPF (0.0-6.0) 07/03/18 Unknown 3.0 /HPF (0.0-6.0) 07/03/18 Unknown U Epithel Cells (Auto) 7.0 /HPF (0-13.0) 07/03/18 Unknown 1+ /HPF (Negative) 06/24/18 13:00 Few /HPF 07/03/18 Unknown Vancomycin Trough 38.9 ug/mL (5.0-20.0) H 07/05/18 10:57 Blood Type O POSITIVE 07/04/18 17:54 Antibody Screen TNR 07/04/18 17:54 FADY Antibody Screen Negative 07/04/18 17:54 Crossmatch See Detail 07/04/18 17:54 Crossmatch See Detail 07/04/18 17:54 Active Medications - Current Medications Current Medications: Generic Name Dose Route Start Last Admin Trade Name Freq PRN Reason Stop Dose Admin Albuterol 2.5 mg 07/02/18 07:44 Proventil IH Q4HRT PRN Shortness Of Breath Arformoterol Tartrate 15 mcg 07/12/18 20:00 07/14/18 07:37 Brovana Nebu IH 15 mcg Q12HRT MAURICIO Administration Budesonide 0.5 mg 07/02/18 20:00 07/14/18 07:37 Pulmicort IH 0.5 mg Q12HRT MAURICIO Administration Famotidine 20 mg 07/11/18 10:00 07/14/18 09:16 Pepcid IV 20 mg BID MAURICIO Administration Hydromorphone HCl 1 mg 07/11/18 11:11 07/14/18 09:16 Dilaudid IV 1 mg Q4H PRN Administration Pain , Severe (7-10) Hydrophilic Ointment 1 applic 07/04/18 18:23 Vaseline Lip Therapy TP Q2HR PRN Dry Lips Heparin Sodium/Sodium Chloride 25,000 unit in 500 mls @ 15 mls/hr 07/07/18 14:00 07/14/18 06:42 Heparin/ 0.45% Nacl-25,000 Unit/500 Ml IV 1,650 units/hr TITR MAURICIO 33 mls/hr Administration Protocol 750 UNITS/HR Amino Acids/Electrolytes/Dextrose 1,800 mls @ 75 mls/hr 07/13/18 20:00 07/13/18 20:18 Tpn Adult IV 07/14/18 19:59 75 mls/hr DAILY@1999 [facility] Administration Protocol Amino Acids/Electrolytes/Dextrose 1,800 mls @ 75 mls/hr 07/14/18 20:00 Tpn Adult IV 07/15/18 19:59 DAILY@1999 [facility] Protocol Metoprolol Tartrate 12.5 mg 07/14/18 22:00 Lopressor PO BID [facility] Multi-Ingred Cream/Lotion/Oil/Oint 1 applic 07/04/18 18:23 Artificial Tears Ophth Oint OU Q4HR PRN Dry Eye(s) Naloxone HCl 0.1 mg 06/24/18 18:55 Narcan 0.4 Mg/1 Ml IV Q2MIN PRN Res Rate </= 8 or 02 SAT < 92% Nicotine 14 mg 06/25/18 10:00 07/14/18 10:51 Habitrol TD 14 mg QDAY MAURICIO Administration Ondansetron HCl 4 mg 06/24/18 14:00 07/13/18 04:17 Zofran IV 4 mg Q8H PRN Administration Nausea And Vomiting Sodium Chloride 10 ml 06/24/18 22:00 07/13/18 23:36 Sodium Chloride Flush Syringe 10 Ml IV 10 ml BID MAURICIO Administration Sodium Chloride 10 ml 06/24/18 14:00 07/07/18 16:07 Sodium Chloride Flush Syringe 10 Ml IV 10 ml PRN PRN Administration LINE FLUSH Warfarin Sodium 2.5 mg 07/14/18 17:00 Coumadin PO DAILY@1700 [facility] Nutrition/Malnutrition Assess - Dietary Evaluation Nutrition/Malnutrition Findings: Nutrition Notes Start: 06/30/18 16:45 Freq: Status: Active Protocol: Document 07/13/18 14:40 RM (Rec: 07/13/18 14:45 RM [id number]) Nutrition Notes Initial or Follow up Reassessment Current Diagnosis Respiratory Failure Other Pertinent Diagnosis Perforated viscus s/p exp lap Current Diet CPN at 75ml/hr + Full liquid Labs/Tests K 3.1 Pertinent Medications Reviewed Height 5 ft 3 in Weight 52.3 kg [place] Body Weight (kg) 52.27 BMI 20.4 Subjective/Other Information CPN D/C'd for unclear reason yesterday so pt did not receive yesterday's bag. CPN bag from was started earlier today. Clear liquid diet in place earlier today. Full liquid diet ordered later today. Pt stated that she ate the jello and drank the sweet tea from her clear liquid meals. Also stated that she drank an Ensure High Protein. Pt was starting to eat the soup from her first full liquid meal at time of visit. Burn Absent Trauma Absent #2 Nutrition Diagnosis Inadequate oral intake Diagnosis Progress(for reassessment Continues documentation) #1 Nutrition Diagnosis Increased nutrient needs ( specify in comment below) Diagnosis Progress(for reassessment Continues documentation) Is patient on ventilator? No Is Patient Ambulatory and/or Out of Bed No REE-([place]-confined to bed) 1291.488 Kcal/Kg value to use for calculation 33 Approximate Energy Requirements Using 1726 kcal/Kg Calculation Used for Recommendations Kcal/kg Additional Notes Pro needs 1.2-2/k-104g/ day Fluid needs 1ml/kcal Nutrition Intervention Change Diet Order: CPN Nutrition Support: CPN at 75 ml/hr: 171mEq K, 49mmol phos Osmolarity: 1617 Kcal 1,270 Protein (gm) 105 Carbohydrates (gm) 250 Fat (gm) 0 Fluid (mL) 1,800 Fiber (gm) 0 Add Supplement/Snack (indicate name/kcal Ensure Enlive BID /protein ) Provides kCal: 700 Provides Protein (gm) 40 Goal #1 Meet at least 80% of kcal and protein needs as best as possible Anticipated Discharge Needs: home TPN Follow-Up By: 07/14/18 Additional Comments Follow for labs in AM: BMP, Mg , Phos
--- NOTE | 2018-07-14 16:04 | Progress Note ---
Assessment and Plan - Patient Problems (1) Perforated viscus Current Visit: Yes Status: Acute Plan to address problem: 58 yo F s/p 1) Abdominal re-exploration and washout, cholecystectomy, primary closure of abdominal wall 07/10/18, POD 4 2) exploratory laparotomy, small bowel resection with primary anastamosis, right hemicolectomy with ileocolonic anastamosis, temporary closure of abdomen with abthera vac 07/07/18 - POD#7; 3) Exploratory laparotomy, small bowel resection, partial colon resection, temporary abdominal closure with abthera vac 07/04/18, POD#10 ; and 4) Exploratory laparotomy, Ezequiel's procedure 06/24/18 Problem list: 1. 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 Respiratory failure 5. COPD Plan: 1. advance to soft diet 2. TPN - can d/c if diet tolerated 3. prn IV pain control 4. continue heparin gtt - Ok to start coumadin at anytime now from our standpoint 5. incentive spirometry/pulm toilet 6. IV abx per ID 7. GI ppx 8. continue OOB/PT 9. wound care consult for ostomy teaching Please call with questions. Subjective Date of service: 07/14/18 Patient Reports: Positive: no new complaints, feels better, tolerating liquids well, bowel movement. Negative: nausea, vomiting Objective Vital Signs - 12hr 07/14/18 07/14/18 07/14/18 04:32 07:37 07:45 Temperature 98.5 F Pulse Rate 107 H Pulse Rate [ 105 H 108 H Anterior Throughout] Respiratory 20 Rate Respiratory 18 18 Rate [Anterior Throughout] Blood Pressure 109/63 O2 Sat by Pulse 97 96 Oximetry 07/14/18 07/14/18 08:00 12:11 Temperature 99.0 F 98.3 F Pulse Rate 110 H 123 H Pulse Rate [ Anterior Throughout] Respiratory 18 18 Rate Respiratory Rate [Anterior Throughout] Blood Pressure 121/69 117/59 O2 Sat by Pulse 94 95 Oximetry - General physical appearance no distress, no pain, other (looks better) - Respiratory normal expansion, normal respiratory effort - Abdomen soft, not tender, distended (mild), not guarding, not rigid, surgical scars (C/D/I), other (ostomy functioning) - Integumentary no rash, no growths, no abnormal pigmentation - Psychiatric oriented to time, oriented to person, oriented to place, speech is normal, memory intact - Labs 07/14/18 00:55 07/14/18 05:35 Diabetes panel 07/14/18 Range/Units 05:35 Sodium 142 (137-145) mmol/L Potassium 4.4 D (3.6-5.0) mmol/L Chloride 103.8 (98-107) mmol/L Carbon Dioxide 30 (22-30) mmol/L BUN 20 H (7-17) mg/dL Creatinine 0.2 L (0.7-1.2) mg/dL Glucose 114 H (65-100) mg/dL Calcium 8.4 (8.4-10.2) mg/dL Calcium panel 07/14/18 Range/Units 05:35 Calcium 8.4 (8.4-10.2) mg/dL Phosphorus 3.00 (2.5-4.5) mg/dL Pituitary panel 07/14/18 Range/Units 05:35 Sodium 142 (137-145) mmol/L Potassium 4.4 D (3.6-5.0) mmol/L Chloride 103.8 (98-107) mmol/L Carbon Dioxide 30 (22-30) mmol/L BUN 20 H (7-17) mg/dL Creatinine 0.2 L (0.7-1.2) mg/dL Glucose 114 H (65-100) mg/dL Calcium 8.4 (8.4-10.2) mg/dL Adrenal panel 07/14/18 Range/Units 05:35 Sodium 142 (137-145) mmol/L Potassium 4.4 D (3.6-5.0) mmol/L Chloride 103.8 (98-107) mmol/L Carbon Dioxide 30 (22-30) mmol/L BUN 20 H (7-17) mg/dL Creatinine 0.2 L (0.7-1.2) mg/dL Glucose 114 H (65-100) mg/dL Calcium 8.4 (8.4-10.2) mg/dL
[2018-07-14] MEDS: COUMADIN PO SCH (18:54)
[2018-07-14] MEDS: SODIUM CHLORIDE FLUSH SYRINGE 10 ML IV SCH ×2 (19:16→23:08)
[2018-07-14] MEDS ORDERED: TPN ADULT 1,800 ML IV SCH (20:00)
[2018-07-14] MEDS: LOPRESSOR PO SCH (21:13)
[2018-07-15] MEDS: DILAUDID IV PRN ×4 (02:56→20:24)
[2018-07-15 04:32] LABS: Basophils # (Auto) 0.1 K/mm3 (0.0-0.1); Basophils % (Auto) 0.7 % (0.0-1.8); Eosinophils # (Auto) 0.1 K/mm3 (0.0-0.4); Eosinophils % (Auto) 0.5 % (0.0-4.3); Hematocrit 28.3 % (30.3-42.9); Hemoglobin 9.5 gm/dl (10.1-14.3); Lymphocytes # (Auto) 1.7 K/mm3 (1.2-5.4); Lymphocytes % (Auto) 10.5 % (13.4-35.0); Mean Corpuscular HGB Conc 34 % (30-34); Mean Corpuscular Volume 89 fl (79-97); Monocytes # (Auto) 0.9 K/mm3 (0.0-0.8); Monocytes % (Auto) 5.5 % (0.0-7.3); Platelet Count 446 K/mm3 (140-440); Red Blood Count 3.19 M/mm3 (3.65-5.03); Red Cell Distribution Width 15.4 % (13.2-15.2)
[2018-07-15 04:52] LABS: BUN/Creatinine Ratio 100; Blood Urea Nitrogen 20 mg/dL (7-17); Calcium 8.7 mg/dL (8.4-10.2); Hemolysis Index 1
[2018-07-15 05:39] LABS: INR 2.32 (0.87-1.13)
[2018-07-15] MEDS: BROVANA NEBU IH SCH ×2 (10:22→21:31)
[2018-07-15] MEDS: PULMICORT IH SCH ×2 (10:23→21:31)
[2018-07-15] MEDS: LOPRESSOR PO SCH ×2 (10:30→22:37)
[2018-07-15] MEDS: PEPCID IV SCH ×2 (10:30→22:38)
[2018-07-15] MEDS: HABITROL TD SCH (10:30)
--- NOTE | 2018-07-15 11:31 | Progress Note ---
Assessment and Plan - Patient Problems (1) Perforated viscus Current Visit: Yes Status: Acute Plan to address problem: 58 yo F s/p 1) Abdominal re-exploration and washout, cholecystectomy, primary closure of abdominal wall 07/10/18, POD 5 2) exploratory laparotomy, small bowel resection with primary anastamosis, right hemicolectomy with ileocolonic anastamosis, temporary closure of abdomen with abthera vac 07/07/18 - POD#8; 3) Exploratory laparotomy, small bowel resection, partial colon resection, temporary abdominal closure with abthera vac 07/04/18, POD#11 ; and 4) Exploratory laparotomy, Ezequiel's procedure 06/24/18 Problem list: 1. 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 Respiratory failure 5. COPD Plan: 1. Diet as tolerated 2. TPN - can d/c 3. prn IV pain control 4. continue heparin gtt - discontinue as INR at therapeutic level 5. incentive spirometry/pulm toilet 6. IV abx per ID 7. GI ppx 8. continue OOB/PT 9. Mild dehydration - encourage PO intake and will give 1L bolus. 10. discharge planning. Please call with questions. Subjective Date of service: 07/15/18 Patient Reports: Positive: tolerating a regular diet, other (did not sleep well last night) Objective Vital Signs - 12hr 07/15/18 07/15/18 07/15/18 00:03 04:39 07:51 Temperature 98.6 F 98.1 F 99.1 F Pulse Rate 106 H 106 H 112 H Pulse Rate [ Anterior Bilateral Throughout] Respiratory 18 18 18 Rate Respiratory Rate [Anterior Bilateral Throughout] Blood Pressure 117/64 106/58 124/69 O2 Sat by Pulse 97 97 94 Oximetry 07/15/18 07/15/18 07/15/18 10:23 10:24 10:31 Temperature Pulse Rate Pulse Rate [ 112 H 113 H Anterior Bilateral Throughout] Respiratory Rate Respiratory 18 16 Rate [Anterior Bilateral Throughout] Blood Pressure O2 Sat by Pulse 98 Oximetry - General physical appearance no distress, no pain, other (looks good) - Eyes normal occular movement - Respiratory normal expansion, normal respiratory effort - Abdomen soft, tender (minimal), distended (minimal), not guarding, not rigid, surgical scars (C/D/I), other (air in ostomy bag) - Integumentary no rash, no growths, no abnormal pigmentation - Psychiatric oriented to time, oriented to person, oriented to place, speech is normal, memory intact - Labs 07/15/18 04:11 07/15/18 04:11 Diabetes panel 07/15/18 Range/Units 04:11 Sodium 140 (137-145) mmol/L Potassium 4.2 (3.6-5.0) mmol/L Chloride 104.8 (98-107) mmol/L Carbon Dioxide 27 (22-30) mmol/L BUN 20 H (7-17) mg/dL Creatinine 0.2 L (0.7-1.2) mg/dL Glucose 146 H (65-100) mg/dL Calcium 8.7 (8.4-10.2) mg/dL Calcium panel 07/15/18 Range/Units 04:11 Calcium 8.7 (8.4-10.2) mg/dL Phosphorus 3.90 D (2.5-4.5) mg/dL Pituitary panel 07/15/18 Range/Units 04:11 Sodium 140 (137-145) mmol/L Potassium 4.2 (3.6-5.0) mmol/L Chloride 104.8 (98-107) mmol/L Carbon Dioxide 27 (22-30) mmol/L BUN 20 H (7-17) mg/dL Creatinine 0.2 L (0.7-1.2) mg/dL Glucose 146 H (65-100) mg/dL Calcium 8.7 (8.4-10.2) mg/dL Adrenal panel 07/15/18 Range/Units 04:11 Sodium 140 (137-145) mmol/L Potassium 4.2 (3.6-5.0) mmol/L Chloride 104.8 (98-107) mmol/L Carbon Dioxide 27 (22-30) mmol/L BUN 20 H (7-17) mg/dL Creatinine 0.2 L (0.7-1.2) mg/dL Glucose 146 H (65-100) mg/dL Calcium 8.7 (8.4-10.2) mg/dL
[2018-07-15] MEDS ORDERED: NACL 0.45% 1000 ML 1,000 ML IV SCH (12:00)
--- NOTE | 2018-07-15 13:16 | Progress Note ---
Assessment and Plan Assessment and plan: --Acute SMA/SMV/distal aortic Thrombosis; vascular evaluated, on heparin drip and Coumadin INR 2.3, DC heparin drip, closely monitor her INR target level between 2-3 Patient may need lifelong anticoagulation per vascular, --Hypokalemia; corrected, closely monitor electrolytes --Acute Mesenteric ischemia; with ischemic bowel/gangrene bowel Sigmoid diverticulitis with perforation of distal sigmoid colon Patient underwent multiple surgical procedures as mentioned below/management per surgery 1) Abdominal re-exploration and washout, cholecystectomy, primary closure of abdominal wall 07/10/18, POD 1 2) exploratory laparotomy, small bowel resection with primary anastamosis, right hemicolectomy with ileocolonic anastamosis,temporary closure of abdomen with abthera vac 07/07/18 - POD#5; 3) Exploratory laparotomy, small bowel resection, partial colon resection, temporary abdominal closure with abthera vac 07/04/18, POD7 ; and 4) Exploratory laparotomy, Ezequiel's procedure 06/24/18 Patient tolerating full liquid diet, advance diet per surgery, wean off TPN Physical therapy increase ambulation --Acute hypoxic respiratory failure;Requiring intubation , extubated Oxygen, titrate O2 sats to monitor 90%, evaluate for home oxygen --Acute exacerbation of COPD; symptoms significantly improved --Sepsis; s/p cefepime and fluconazole and Flagyl, Monitor off antibiotics ID following --Leukocytosis; secondary to sepsis, trending down --Severe malnutrition; nutrition consult, TPN --Ongoing tobacco use; smoking cessation, nicotine patch as needed --DVT prophylaxis; the patient is already on heparin drip --Physical therapy occupational therapy --Discharge planning. Case management and patient is stable Physical therapy occupational therapy Plan of care reviewed with the patient and her nurse and case management Possible discharge in 1-2 days if stable History Interval history: Patient seen and examined medical records reviewed Bowel movements to prevent the nursing staff Patient is tolerating full liquids surgery advanced to soft diet Patient complains of tiredness, denies any nausea vomiting Vital signs noted Hospitalist Physical - Constitutional Vitals: Temp Pulse Resp BP Pulse Ox 99.1 F 113 H 16 124/69 98 07/15/18 07:51 07/15/18 10:31 07/15/18 10:31 07/15/18 07:51 07/15/18 10:24 General appearance: Present: no acute distress, well-nourished - EENT Eyes: Present: PERRL, EOM intact - Neck Neck: Present: supple, normal ROM - Respiratory Respiratory effort: normal Respiratory: bilateral: diminished, negative: rales, rhonchi, wheezing - Cardiovascular Rhythm: regular Heart Sounds: Present: S1 & S2 - Extremities Extremities: no ischemia, No edema - Abdominal General gastrointestinal: soft, non-tender, non-distended - Integumentary Integumentary: Present: clear, warm - Psychiatric Psychiatric: appropriate mood/affect, cooperative - Neurologic Neurologic: CNII-XII intact, moves all extremities Results - Labs CBC & Chem 7: 07/15/18 04:11 07/15/18 04:11 Labs: Laboratory Last Values WBC 16.5 K/mm3 (4.5-11.0) H 07/15/18 04:11 RBC 3.19 M/mm3 (3.65-5.03) L 07/15/18 04:11 Hgb 9.5 gm/dl (10.1-14.3) L 07/15/18 04:11 Hct 28.3 % (30.3-42.9) L 07/15/18 04:11 MCV 89 fl (79-97) 07/15/18 04:11 MCH 30 pg (28-32) 07/15/18 04:11 MCHC 34 % (30-34) 07/15/18 04:11 RDW 15.4 % (13.2-15.2) H 07/15/18 04:11 Plt Count 446 K/mm3 (140-440) H 07/15/18 04:11 Lymph % (Auto) 10.5 % (13.4-35.0) L 07/15/18 04:11 [place] % (Auto) 5.5 % (0.0-7.3) 07/15/18 04:11 Eos % (Auto) 0.5 % (0.0-4.3) 07/15/18 04:11 Baso % (Auto) 0.7 % (0.0-1.8) 07/15/18 04:11 Lymph # 1.7 K/mm3 (1.2-5.4) 07/15/18 04:11 [place] # 0.9 K/mm3 (0.0-0.8) H 07/15/18 04:11 Eos # 0.1 K/mm3 (0.0-0.4) 07/15/18 04:11 Baso # 0.1 K/mm3 (0.0-0.1) 07/15/18 04:11 Add Manual Diff Complete 07/11/18 05:13 Total Counted 100 07/11/18 05:13 Seg Neutrophils % 82.8 % (40.0-70.0) H 07/15/18 04:11 Seg Neuts % (Manual) 71.0 % (40.0-70.0) H 07/11/18 05:13 10.0 % 07/11/18 05:13 10.0 % (13.4-35.0) L 07/11/18 05:13 Reactive Lymphs % (Man) 0 % 07/11/18 05:13 9.0 % (0.0-7.3) H 07/11/18 05:13 0 % (0.0-4.3) 07/11/18 05:13 0 % (0.0-1.8) 07/11/18 05:13 0 % 07/11/18 05:13 0 % 07/11/18 05:13 0 % 07/11/18 05:13 0 % 07/11/18 05:13 Nucleated RBC % Not Reportable 07/11/18 05:13 Seg Neutrophils # 13.7 K/mm3 (1.8-7.7) H 07/15/18 04:11 Seg Neutrophils # Man 12.6 K/mm3 (1.8-7.7) H 07/11/18 05:13 Band Neutrophils # 1.8 K/mm3 07/11/18 05:13 1.8 K/mm3 (1.2-5.4) 07/11/18 05:13 Abs React Lymphs (Man) 0.0 K/mm3 07/11/18 05:13 1.6 K/mm3 (0.0-0.8) H 07/11/18 05:13 0.0 K/mm3 (0.0-0.4) 07/11/18 05:13 0.0 K/mm3 (0.0-0.1) 07/11/18 05:13 0.0 K/mm3 07/11/18 05:13 0.0 K/mm3 07/11/18 05:13 0.0 K/mm3 07/11/18 05:13 Blast Cells # 0.0 K/mm3 07/11/18 05:13 WBC Morphology Not Reportable 07/11/18 05:13 Hypersegmented Neuts Not Reportable 07/11/18 05:13 Hyposegmented Neuts Not Reportable 07/11/18 05:13 Hypogranular Neuts Not Reportable 07/11/18 05:13 Not Reportable 07/11/18 05:13 Not Reportable 07/11/18 05:13 Not Reportable 07/11/18 05:13 Not Reportable 07/11/18 05:13 Not Reportable 07/11/18 05:13 Not Reportable 07/11/18 05:13 Appears increased 07/11/18 05:13 Not Reportable 07/11/18 05:13 Plt Clumps, EDTA Not Reportable 07/11/18 05:13 Not Reportable 07/11/18 05:13 Not Reportable 07/11/18 05:13 Not Reportable 07/11/18 05:13 Plt Morphology Comment Not Reportable 07/11/18 05:13 RBC Morphology Not Reportable 07/11/18 05:13 Dimorphic RBCs Not Reportable 07/11/18 05:13 1+ 07/11/18 05:13 Not Reportable 07/11/18 05:13 Not Reportable 07/11/18 05:13 1+ 07/11/18 05:13 Not Reportable 07/11/18 05:13 Not Reportable 07/11/18 05:13 Not Reportable 07/11/18 05:13 Not Reportable 07/11/18 05:13 Not Reportable 07/11/18 05:13 Rare 07/11/18 05:13 Not Reportable 07/11/18 05:13 Not Reportable 07/11/18 05:13 Few 07/11/18 05:13 Not Reportable 07/11/18 05:13 Not Reportable 07/11/18 05:13 Not Reportable 07/11/18 05:13 Not Reportable 07/11/18 05:13 Not Reportable 07/11/18 05:13 Not Reportable 07/11/18 05:13 Not Reportable 07/11/18 05:13 Acanthocytes (Spur) Not Reportable 07/11/18 05:13 Rouleaux Not Reportable 07/11/18 05:13 Not Reportable 07/11/18 05:13 Not Reportable 07/11/18 05:13 Not Reportable 07/11/18 05:13 Not Reportable 07/11/18 05:13 Hem Pathologist Commnt No 07/11/18 05:13 PT 27.1 Sec. (12.2-14.9) H 07/15/18 04:11 INR 2.32 (0.87-1.13) H 07/15/18 04:11 APTT 42.2 Sec. (24.2-36.6) H 07/07/18 15:20 Heparin Anti-Xa Level 0.42 U.I./ml (0.3-0.7) 07/14/18 21:32 POC ABG pH 7.431 (7.35-7.45) 07/10/18 04:32 POC ABG pCO2 48.5 (35-45) H 07/10/18 04:32 POC ABG pO2 104 (80-105) 07/10/18 04:32 POC ABG HCO3 32.2 (22-26 mml/L) 07/10/18 04:32 POC ABG Total CO2 34 (23-27mmol/L) 07/10/18 04:32 POC ABG O2 Sat 98 07/10/18 04:32 POC ABG Base Excess 8 ((-2) - (+3)mmol/L) 07/10/18 04:32 28 % 07/10/18 04:32 Sodium 140 mmol/L (137-145) 07/15/18 04:11 Potassium 4.2 mmol/L (3.6-5.0) 07/15/18 04:11 Chloride 104.8 mmol/L (98-107) 07/15/18 04:11 Carbon Dioxide 27 mmol/L (22-30) 07/15/18 04:11 12 mmol/L 07/15/18 04:11 BUN 20 mg/dL (7-17) H 07/15/18 04:11 0.2 mg/dL (0.7-1.2) L 07/15/18 04:11 Estimated GFR > 60 ml/min 07/15/18 04:11 100 % 07/15/18 04:11 Glucose 146 mg/dL (65-100) H 07/15/18 04:11 POC Glucose 132 (70-105) H 07/15/18 12:07 Lactic Acid 1.40 mmol/L (0.7-2.0) 07/04/18 21:11 Calcium 8.7 mg/dL (8.4-10.2) 07/15/18 04:11 Phosphorus 3.90 mg/dL (2.5-4.5) D 07/15/18 04:11 Magnesium 2.00 mg/dL (1.7-2.3) 07/15/18 04:11 Iron 40 ug/dL (37-170) 07/07/18 11:50 TIBC 94 mcg/dL (250-450) L 07/07/18 11:50 377.8 ng/mL (13.0-400.0) 07/07/18 11:50 0.40 mg/dL (0.1-1.2) 07/12/18 04:16 < 0.2 mg/dL (0-0.2) 07/12/18 04:16 0.2 mg/dL 07/12/18 04:16 AST 26 units/L (5-40) 07/12/18 04:16 ALT 32 units/L (7-56) 07/12/18 04:16 168 units/L (35-129) H 07/12/18 04:16 13.20 mg/dL (0.00-1.30) H 07/03/18 11:07 NT-Pro-B Natriuret Pep 1572 pg/mL (0-900) H 06/28/18 09:56 6.1 g/dL (6.3-8.2) L 07/12/18 04:16 2.4 g/dL (3.9-5) L 07/12/18 04:16 0.6 % 07/12/18 04:16 0.185 g/L (0.200-0.400) L 07/14/18 05:35 Triglycerides 127 mg/dL (2-149) 07/07/18 02:14 8 units/L (13-60) L 06/24/18 11:19 Vitamin B12 924.8 pg/mL (211-911) H 07/07/18 11:50 4.92 ng/mL (7.3-26.0) L 07/07/18 11:50 Na (Yellow) 07/03/18 Unknown Hazy (Clear) 07/03/18 Unknown 6.0 (5.0-7.0) 07/03/18 Unknown Ur Specific [facility] 1.023 (1.003-1.030) 07/03/18 Unknown <15 mg/dl mg/dL (Negative) 07/03/18 Unknown Neg mg/dL (Negative) 07/03/18 Unknown Neg mg/dL (Negative) 07/03/18 Unknown Sm (Negative) 07/03/18 Unknown Neg (Negative) 07/03/18 Unknown Neg (Negative) 07/03/18 Unknown < 2.0 mg/dL (<2.0) 07/03/18 Unknown Ur Leukocyte Esterase Neg (Negative) 07/03/18 Unknown 1.0 /HPF (0.0-6.0) 07/03/18 Unknown 3.0 /HPF (0.0-6.0) 07/03/18 Unknown U Epithel Cells (Auto) 7.0 /HPF (0-13.0) 07/03/18 Unknown 1+ /HPF (Negative) 06/24/18 13:00 Few /HPF 07/03/18 Unknown Vancomycin Trough 38.9 ug/mL (5.0-20.0) H 07/05/18 10:57 Blood Type O POSITIVE 07/04/18 17:54 Antibody Screen TNR 07/04/18 17:54 FADY Antibody Screen Negative 07/04/18 17:54 Crossmatch See Detail 07/04/18 17:54 Crossmatch See Detail 07/04/18 17:54 Active Medications - Current Medications Current Medications: Generic Name Dose Route Start Last Admin Trade Name Freq PRN Reason Stop Dose Admin Albuterol 2.5 mg 07/02/18 07:44 Proventil IH Q4HRT PRN Shortness Of Breath Arformoterol Tartrate 15 mcg 07/12/18 20:00 07/15/18 10:22 Brovana Nebu IH 15 mcg Q12HRT MAURICIO Administration Budesonide 0.5 mg 07/02/18 20:00 07/15/18 10:23 Pulmicort IH 0.5 mg Q12HRT MAURICIO Administration Famotidine 20 mg 07/11/18 10:00 07/15/18 10:30 Pepcid IV 20 mg BID MAURICIO Administration Hydromorphone HCl 1 mg 07/11/18 11:11 07/15/18 08:38 Dilaudid IV 1 mg Q4H PRN Administration Pain , Severe (7-10) Hydrophilic Ointment 1 applic 07/04/18 18:23 Vaseline Lip Therapy TP Q2HR PRN Dry Lips Heparin Sodium/Sodium Chloride 25,000 unit in 500 mls @ 15 mls/hr 07/07/18 14:00 07/15/18 00:03 Heparin/ 0.45% Nacl-25,000 Unit/500 Ml IV 1,650 units/hr TITR MAURICIO 33 mls/hr Titration Protocol 750 UNITS/HR Amino Acids/Electrolytes/Dextrose 1,800 mls @ 75 mls/hr 07/14/18 20:00 07/14/18 20:56 Tpn Adult IV 07/15/18 19:59 75 mls/hr DAILY@1999 MAURICIO Administration Protocol Amino Acids/Electrolytes/Dextrose 1,800 mls @ 75 mls/hr 07/15/18 20:00 Tpn Adult IV 07/16/18 19:59 DAILY@1999 [facility] Protocol Metoprolol Tartrate 12.5 mg 07/14/18 22:00 07/15/18 10:30 Lopressor PO 12.5 mg BID [facility] Administration Multi-Ingred Cream/Lotion/Oil/Oint 1 applic 07/04/18 18:23 Artificial Tears Ophth Oint OU Q4HR PRN Dry Eye(s) Naloxone HCl 0.1 mg 06/24/18 18:55 Narcan 0.4 Mg/1 Ml IV Q2MIN PRN Res Rate </= 8 or 02 SAT < 92% Nicotine 14 mg 06/25/18 10:00 07/15/18 10:30 Habitrol TD Not Given QDAY [facility] Ondansetron HCl 4 mg 06/24/18 14:00 07/13/18 04:17 Zofran IV 4 mg Q8H PRN Administration Nausea And Vomiting Sodium Chloride 10 ml 06/24/18 22:00 07/14/18 23:08 Sodium Chloride Flush Syringe 10 Ml IV 10 ml BID [facility] Administration Sodium Chloride 10 ml 06/24/18 14:00 07/07/18 16:07 Sodium Chloride Flush Syringe 10 Ml IV 10 ml PRN PRN Administration LINE FLUSH Warfarin Sodium 2.5 mg 07/14/18 17:00 07/14/18 18:54 Coumadin PO 2.5 mg DAILY@1700 MAURICIO Administration Nutrition/Malnutrition Assess - Dietary Evaluation Nutrition/Malnutrition Findings: Nutrition Notes Start: 06/30/18 16:45 Freq: Status: Active Protocol: Document 07/14/18 15:02 RM (Rec: 07/14/18 15:14 RM [id number]) Nutrition Notes Initial or Follow up Reassessment Current Diagnosis Respiratory Failure Other Pertinent Diagnosis Perforated viscus s/p exp lap Current Diet CPN at 75ml/hr + Full liquid Labs/Tests K 4.4 Pertinent Medications Reviewed Height 5 ft 3 in Weight 52.3 kg [place] Body Weight (kg) 52.27 BMI 20.4 Subjective/Other Information CPN infusing at time of visit. Pt stated that she ate half her grits at breakfast, drank her milk, and drank her Ensure Enlive. Noted lunch at bedside w/pudding eaten. Pt stated she also had a few spoonfuls of the soup. Percent of energy/protein needs met: 41%/65% (from Ensure Enlive) 91%/100% (from CPN) Burn Absent Trauma Absent #2 Nutrition Diagnosis Inadequate oral intake As Evidenced by Signs and Symptoms pt meeting 41% of calorie and 65% of protein needs via ONS intake Diagnosis Progress(for reassessment Improved documentation) #1 Nutrition Diagnosis Increased nutrient needs ( specify in comment below) Diagnosis Progress(for reassessment Continues documentation) Is patient on ventilator? No Is Patient Ambulatory and/or Out of Bed No REE-([facility]-confined to bed) 1291.488 Kcal/Kg value to use for calculation 33 Approximate Energy Requirements Using 1726 kcal/Kg Calculation Used for Recommendations Kcal/kg Additional Notes Pro needs 1.2-2/k-78g/day Fluid needs 1ml/kcal Nutrition Intervention Change Diet Order: CPN Nutrition Support: Continue CPN at 75 ml/hr Kcal 1,270 Protein (gm) 105 Carbohydrates (gm) 250 Fat (gm) 0 Fluid (mL) 1,800 Fiber (gm) 0 Add Supplement/Snack (indicate name/kcal Ensure Enlive BID /protein ) Provides kCal: 700 Provides Protein (gm) 40 Goal #1 Meet at least 80% of kcal and protein needs as best as possible Anticipated Discharge Needs: home TPN Follow-Up By: 07/15/18 Additional Comments Follow for labs in AM: BMP, Mg , Phos
[2018-07-15] MEDS: HEPARIN/ 0.45% NACL-25,000 UNIT/500 ML 25,000 UNIT/500 ML BAG IV SCH (13:55)
[2018-07-15] MEDS: COUMADIN PO SCH (19:30)
[2018-07-15] MEDS ORDERED: TPN ADULT 1,800 ML IV SCH (20:00)
[2018-07-15] MEDS: MYLICON PO PRN (20:24)
[2018-07-15] MEDS: SODIUM CHLORIDE FLUSH SYRINGE 10 ML IV SCH (22:00)
[2018-07-15] MEDS: AMBIEN PO PRN (22:38)
[2018-07-16] MEDS: DILAUDID IV PRN ×6 (00:45→21:10)
[2018-07-16 05:01] LABS: INR 2.02 (0.87-1.13)
[2018-07-16 05:11] LABS: BUN/Creatinine Ratio 110; Blood Urea Nitrogen 22 mg/dL (7-17); Calcium 8.4 mg/dL (8.4-10.2); Hemolysis Index 1
[2018-07-16] MEDS: HABITROL TD SCH ×2 (09:07→09:12)
[2018-07-16] MEDS: PEPCID IV SCH ×2 (09:08→21:30)
[2018-07-16] MEDS: LOPRESSOR PO SCH ×2 (09:08→21:30)
[2018-07-16] MEDS: MYLICON PO PRN ×2 (09:08→21:10)
[2018-07-16] MEDS: SODIUM CHLORIDE FLUSH SYRINGE 10 ML IV SCH ×2 (09:20→21:14)
[2018-07-16] MEDS: BROVANA NEBU IH SCH ×2 (11:04→20:02)
[2018-07-16] MEDS: PULMICORT IH SCH ×2 (11:04→20:02)
--- NOTE | 2018-07-16 11:07 | Progress Note ---
Assessment and Plan Assessment and plan: --Acute SMA/SMV/distal aortic Thrombosis; vascular evaluated, on heparin drip and Coumadin INR 2.3, DC heparin drip, closely monitor her INR target level between 2-3 Patient may need lifelong anticoagulation per vascular, --Hypokalemia; corrected, closely monitor electrolytes --Acute Mesenteric ischemia; with ischemic bowel/gangrene bowel Sigmoid diverticulitis with perforation of distal sigmoid colon Patient underwent multiple surgical procedures as mentioned below/management per surgery 1) Abdominal re-exploration and washout, cholecystectomy, primary closure of abdominal wall 07/10/18, POD 1 2) exploratory laparotomy, small bowel resection with primary anastamosis, right hemicolectomy with ileocolonic anastamosis,temporary closure of abdomen with abthera vac 07/07/18 - POD#5; 3) Exploratory laparotomy, small bowel resection, partial colon resection, temporary abdominal closure with abthera vac 07/04/18, POD7 ; and 4) Exploratory laparotomy, Ezequiel's procedure 06/24/18 Patient tolerating full liquid diet, advance diet per surgery, wean off TPN Physical therapy increase ambulation --Acute hypoxic respiratory failure;Requiring intubation , extubated Oxygen, titrate O2 sats to monitor 90%, evaluate for home oxygen --Acute exacerbation of COPD; symptoms significantly improved --Sepsis; s/p cefepime and fluconazole and Flagyl, Monitor off antibiotics ID following --Leukocytosis; secondary to sepsis, trending down --Severe malnutrition; nutrition consult, TPN --Ongoing tobacco use; smoking cessation, nicotine patch as needed --DVT prophylaxis; the patient is already on heparin drip --Physical therapy occupational therapy --Discharge planning. Case management and patient is stable Physical therapy occupational therapy Plan of care reviewed with the patient and her nurse and case management Possible discharge in 1-2 days if stable History Interval history: Patient seen and examined medical records reviewed Patient is tolerating soft diet No new complaints, Vital signs noted INR therapeutic, heparin discontinued Hospitalist Physical - Constitutional Vitals: Temp Pulse Resp BP Pulse Ox 98.1 F 100 H 17 120/69 98 07/16/18 08:30 07/16/18 11:04 07/16/18 11:04 07/16/18 08:30 07/16/18 11:05 General appearance: Present: no acute distress, well-nourished - EENT Eyes: Present: PERRL, EOM intact - Neck Neck: Present: supple, normal ROM - Respiratory Respiratory effort: normal Respiratory: bilateral: diminished, negative: rales, rhonchi, wheezing - Cardiovascular Rhythm: regular Heart Sounds: Present: S1 & S2 - Extremities Extremities: no ischemia, No edema - Abdominal General gastrointestinal: soft, non-tender, non-distended, normal bowel sounds, other ( ostomy in place) - Integumentary Integumentary: Present: clear, warm - Psychiatric Psychiatric: appropriate mood/affect, cooperative - Neurologic Neurologic: CNII-XII intact, moves all extremities Results - Labs CBC & Chem 7: 07/15/18 04:11 07/16/18 04:28 Labs: Laboratory Last Values WBC 16.5 K/mm3 (4.5-11.0) H 07/15/18 04:11 RBC 3.19 M/mm3 (3.65-5.03) L 07/15/18 04:11 Hgb 9.5 gm/dl (10.1-14.3) L 07/15/18 04:11 Hct 28.3 % (30.3-42.9) L 07/15/18 04:11 MCV 89 fl (79-97) 07/15/18 04:11 MCH 30 pg (28-32) 07/15/18 04:11 MCHC 34 % (30-34) 07/15/18 04:11 RDW 15.4 % (13.2-15.2) H 07/15/18 04:11 Plt Count 446 K/mm3 (140-440) H 07/15/18 04:11 Lymph % (Auto) 10.5 % (13.4-35.0) L 07/15/18 04:11 [place] % (Auto) 5.5 % (0.0-7.3) 07/15/18 04:11 Eos % (Auto) 0.5 % (0.0-4.3) 07/15/18 04:11 Baso % (Auto) 0.7 % (0.0-1.8) 07/15/18 04:11 Lymph # 1.7 K/mm3 (1.2-5.4) 07/15/18 04:11 [place] # 0.9 K/mm3 (0.0-0.8) H 07/15/18 04:11 Eos # 0.1 K/mm3 (0.0-0.4) 07/15/18 04:11 Baso # 0.1 K/mm3 (0.0-0.1) 07/15/18 04:11 Add Manual Diff Complete 07/11/18 05:13 Total Counted 100 07/11/18 05:13 Seg Neutrophils % 82.8 % (40.0-70.0) H 07/15/18 04:11 Seg Neuts % (Manual) 71.0 % (40.0-70.0) H 07/11/18 05:13 10.0 % 07/11/18 05:13 10.0 % (13.4-35.0) L 07/11/18 05:13 Reactive Lymphs % (Man) 0 % 07/11/18 05:13 9.0 % (0.0-7.3) H 07/11/18 05:13 0 % (0.0-4.3) 07/11/18 05:13 0 % (0.0-1.8) 07/11/18 05:13 0 % 07/11/18 05:13 0 % 07/11/18 05:13 0 % 07/11/18 05:13 0 % 07/11/18 05:13 Nucleated RBC % Not Reportable 07/11/18 05:13 Seg Neutrophils # 13.7 K/mm3 (1.8-7.7) H 07/15/18 04:11 Seg Neutrophils # Man 12.6 K/mm3 (1.8-7.7) H 07/11/18 05:13 Band Neutrophils # 1.8 K/mm3 07/11/18 05:13 1.8 K/mm3 (1.2-5.4) 07/11/18 05:13 Abs React Lymphs (Man) 0.0 K/mm3 07/11/18 05:13 1.6 K/mm3 (0.0-0.8) H 07/11/18 05:13 0.0 K/mm3 (0.0-0.4) 07/11/18 05:13 0.0 K/mm3 (0.0-0.1) 07/11/18 05:13 0.0 K/mm3 07/11/18 05:13 0.0 K/mm3 07/11/18 05:13 0.0 K/mm3 07/11/18 05:13 Blast Cells # 0.0 K/mm3 07/11/18 05:13 WBC Morphology Not Reportable 07/11/18 05:13 Hypersegmented Neuts Not Reportable 07/11/18 05:13 Hyposegmented Neuts Not Reportable 07/11/18 05:13 Hypogranular Neuts Not Reportable 07/11/18 05:13 Not Reportable 07/11/18 05:13 Not Reportable 07/11/18 05:13 Not Reportable 07/11/18 05:13 Not Reportable 07/11/18 05:13 Not Reportable 07/11/18 05:13 Not Reportable 07/11/18 05:13 Appears increased 07/11/18 05:13 Not Reportable 07/11/18 05:13 Plt Clumps, EDTA Not Reportable 07/11/18 05:13 Not Reportable 07/11/18 05:13 Not Reportable 07/11/18 05:13 Not Reportable 07/11/18 05:13 Plt Morphology Comment Not Reportable 07/11/18 05:13 RBC Morphology Not Reportable 07/11/18 05:13 Dimorphic RBCs Not Reportable 07/11/18 05:13 1+ 07/11/18 05:13 Not Reportable 07/11/18 05:13 Not Reportable 07/11/18 05:13 1+ 07/11/18 05:13 Not Reportable 07/11/18 05:13 Not Reportable 07/11/18 05:13 Not Reportable 07/11/18 05:13 Not Reportable 07/11/18 05:13 Not Reportable 07/11/18 05:13 Rare 07/11/18 05:13 Not Reportable 07/11/18 05:13 Not Reportable 07/11/18 05:13 Few 07/11/18 05:13 Not Reportable 07/11/18 05:13 Not Reportable 07/11/18 05:13 Not Reportable 07/11/18 05:13 Not Reportable 07/11/18 05:13 Not Reportable 07/11/18 05:13 Not Reportable 07/11/18 05:13 Not Reportable 07/11/18 05:13 Acanthocytes (Spur) Not Reportable 07/11/18 05:13 Rouleaux Not Reportable 07/11/18 05:13 Not Reportable 07/11/18 05:13 Not Reportable 07/11/18 05:13 Not Reportable 07/11/18 05:13 Not Reportable 07/11/18 05:13 Hem Pathologist Commnt No 07/11/18 05:13 PT 24.2 Sec. (12.2-14.9) H 07/16/18 04:28 INR 2.02 (0.87-1.13) H 07/16/18 04:28 APTT 42.2 Sec. (24.2-36.6) H 07/07/18 15:20 Heparin Anti-Xa Level 0.42 U.I./ml (0.3-0.7) 07/14/18 21:32 POC ABG pH 7.431 (7.35-7.45) 07/10/18 04:32 POC ABG pCO2 48.5 (35-45) H 07/10/18 04:32 POC ABG pO2 104 (80-105) 07/10/18 04:32 POC ABG HCO3 32.2 (22-26 mml/L) 07/10/18 04:32 POC ABG Total CO2 34 (23-27mmol/L) 07/10/18 04:32 POC ABG O2 Sat 98 07/10/18 04:32 POC ABG Base Excess 8 ((-2) - (+3)mmol/L) 07/10/18 04:32 28 % 07/10/18 04:32 Sodium 136 mmol/L (137-145) L 07/16/18 04:28 Potassium 4.2 mmol/L (3.6-5.0) 07/16/18 04:28 Chloride 99.3 mmol/L (98-107) 07/16/18 04:28 Carbon Dioxide 24 mmol/L (22-30) 07/16/18 04:28 17 mmol/L 07/16/18 04:28 BUN 22 mg/dL (7-17) H 07/16/18 04:28 0.2 mg/dL (0.7-1.2) L 07/16/18 04:28 Estimated GFR > 60 ml/min 07/16/18 04:28 110 % 07/16/18 04:28 Glucose 131 mg/dL (65-100) H 07/16/18 04:28 POC Glucose 132 (70-105) H 07/15/18 12:07 Lactic Acid 1.40 mmol/L (0.7-2.0) 07/04/18 21:11 Calcium 8.4 mg/dL (8.4-10.2) 07/16/18 04:28 Phosphorus 3.60 mg/dL (2.5-4.5) 07/16/18 04:28 Magnesium 2.10 mg/dL (1.7-2.3) 07/16/18 04:28 Iron 40 ug/dL (37-170) 07/07/18 11:50 TIBC 94 mcg/dL (250-450) L 07/07/18 11:50 377.8 ng/mL (13.0-400.0) 07/07/18 11:50 0.40 mg/dL (0.1-1.2) 07/12/18 04:16 < 0.2 mg/dL (0-0.2) 07/12/18 04:16 0.2 mg/dL 07/12/18 04:16 AST 26 units/L (5-40) 07/12/18 04:16 ALT 32 units/L (7-56) 07/12/18 04:16 168 units/L (35-129) H 07/12/18 04:16 13.20 mg/dL (0.00-1.30) H 07/03/18 11:07 NT-Pro-B Natriuret Pep 1572 pg/mL (0-900) H 06/28/18 09:56 6.1 g/dL (6.3-8.2) L 07/12/18 04:16 2.4 g/dL (3.9-5) L 07/12/18 04:16 0.6 % 07/12/18 04:16 0.185 g/L (0.200-0.400) L 07/14/18 05:35 Triglycerides 127 mg/dL (2-149) 07/07/18 02:14 8 units/L (13-60) L 06/24/18 11:19 Vitamin B12 924.8 pg/mL (211-911) H 07/07/18 11:50 4.92 ng/mL (7.3-26.0) L 07/07/18 11:50 Na (Yellow) 07/03/18 Unknown Hazy (Clear) 07/03/18 Unknown 6.0 (5.0-7.0) 07/03/18 Unknown Ur Specific Ubly 1.023 (1.003-1.030) 07/03/18 Unknown <15 mg/dl mg/dL (Negative) 07/03/18 Unknown Neg mg/dL (Negative) 07/03/18 Unknown Neg mg/dL (Negative) 07/03/18 Unknown Sm (Negative) 07/03/18 Unknown Neg (Negative) 07/03/18 Unknown Neg (Negative) 07/03/18 Unknown < 2.0 mg/dL (<2.0) 07/03/18 Unknown Ur Leukocyte Esterase Neg (Negative) 07/03/18 Unknown 1.0 /HPF (0.0-6.0) 07/03/18 Unknown 3.0 /HPF (0.0-6.0) 07/03/18 Unknown U Epithel Cells (Auto) 7.0 /HPF (0-13.0) 07/03/18 Unknown 1+ /HPF (Negative) 06/24/18 13:00 Few /HPF 07/03/18 Unknown Vancomycin Trough 38.9 ug/mL (5.0-20.0) H 07/05/18 10:57 Blood Type O POSITIVE 07/04/18 17:54 Antibody Screen TNR 07/04/18 17:54 FADY Antibody Screen Negative 07/04/18 17:54 Crossmatch See Detail 07/04/18 17:54 Crossmatch See Detail 07/04/18 17:54 Active Medications - Current Medications Current Medications: Generic Name Dose Route Start Last Admin Trade Name Freq PRN Reason Stop Dose Admin Albuterol 2.5 mg 07/02/18 07:44 Proventil IH Q4HRT PRN Shortness Of Breath Arformoterol Tartrate 15 mcg 07/12/18 20:00 07/16/18 11:04 Brovana Nebu IH 15 mcg Q12HRT MAURICIO Administration Budesonide 0.5 mg 07/02/18 20:00 07/16/18 11:04 Pulmicort IH 0.5 mg Q12HRT [facility] Administration Famotidine 20 mg 07/11/18 10:00 07/16/18 09:08 Pepcid IV 20 mg BID [facility] Administration Hydromorphone HCl 1 mg 07/11/18 11:11 07/16/18 09:11 Dilaudid IV 1 mg Q4H PRN Administration Pain , Severe (7-10) Hydrophilic Ointment 1 applic 07/04/18 18:23 Vaseline Lip Therapy TP Q2HR PRN Dry Lips Amino Acids/Electrolytes/Dextrose 1,800 mls @ 75 mls/hr 07/15/18 20:00 20:00 Tpn Adult IV 07/16/18 19:59 75 mls/hr DAILY@2000 [facility] Administration Protocol Metoprolol Tartrate 12.5 mg 07/14/18 22:00 07/16/18 09:08 Lopressor PO 12.5 mg BID [facility] Administration Multi-Ingred Cream/Lotion/Oil/Oint 1 applic 07/04/18 18:23 Artificial Tears Ophth Oint OU Q4HR PRN Dry Eye(s) Naloxone HCl 0.1 mg 06/24/18 18:55 Narcan 0.4 Mg/1 Ml IV Q2MIN PRN Res Rate </= 8 or 02 SAT < 92% Nicotine 14 mg 06/25/18 10:00 07/16/18 09:12 Habitrol TD Not Given QDAY [facility] Ondansetron HCl 4 mg 06/24/18 14:00 07/13/18 04:17 Zofran IV 4 mg Q8H PRN Administration Nausea And Vomiting Simethicone 80 mg 07/15/18 19:25 07/16/18 09:08 Mylicon PO 80 mg Q6H PRN Administration Gas pain Sodium Chloride 10 ml 06/24/18 22:00 07/16/18 09:20 Sodium Chloride Flush Syringe 10 Ml IV 10 ml BID [facility] Administration Sodium Chloride 10 ml 06/24/18 14:00 07/07/18 16:07 Sodium Chloride Flush Syringe 10 Ml IV 10 ml PRN PRN Administration LINE FLUSH Warfarin Sodium 2.5 mg 07/14/18 17:00 07/15/18 19:30 Coumadin PO 2.5 mg DAILY@1700 [facility] Administration Zolpidem Tartrate 5 mg 07/15/18 19:25 07/15/18 22:38 Ambien PO 5 mg QHS PRN Administration Sleep Nutrition/Malnutrition Assess - Dietary Evaluation Nutrition/Malnutrition Findings: Nutrition Notes Start: 06/30/18 16:45 Freq: Status: Active Protocol: Document 07/15/18 14:48 RM (Rec: 07/15/18 14:54 RM [id number]) Nutrition Notes Initial or Follow up Reassessment Current Diagnosis Respiratory Failure Other Pertinent Diagnosis Perforated viscus s/p exp lap Current Diet CPN at 75ml/hr + Full liquid Labs/Tests K 4 Pertinent Medications Reviewed Height 5 ft 3 in Weight 52.3 kg [place] Body Weight (kg) 52.27 BMI 20.4 Subjective/Other Information CPN day 10. Pt stated that she wasn't able to sleep last night and did not eat her breakfast except for her Ensure Enlive. Stated she ate 25% of her lunch today . Percent of energy/protein needs met: 41%/65% (from Ensure Enlive) 91%/100% (from CPN) Burn Absent Trauma Absent #2 Nutrition Diagnosis Inadequate oral intake Diagnosis Progress(for reassessment Continues documentation) #1 Nutrition Diagnosis Increased nutrient needs ( specify in comment below) Diagnosis Progress(for reassessment Continues documentation) Is patient on ventilator? No Is Patient Ambulatory and/or Out of Bed No REE-([facility]-confined to bed) 1291.488 Kcal/Kg value to use for calculation 33 Approximate Energy Requirements Using 1726 kcal/Kg Calculation Used for Recommendations Kcal/kg Additional Notes Pro needs 1.2-1.5/k-78g/ day Fluid needs 1ml/kcal Nutrition Intervention Change Diet Order: CPN Nutrition Support: Continue CPN at 75 ml/hr Kcal 1,270 Protein (gm) 105 Carbohydrates (gm) 250 Fat (gm) 0 Fluid (mL) 1,800 Fiber (gm) 0 Add Supplement/Snack (indicate name/kcal Ensure Enlive BID /protein ) Provides kCal: 700 Provides Protein (gm) 40 Goal #1 Meet at least 80% of kcal and protein needs as best as possible Anticipated Discharge Needs: home TPN Follow-Up By: 07/16/18 Additional Comments Follow for labs in AM: BMP, Mg , Phos
[2018-07-16] MEDS ORDERED: NACL 0.9% 1000 ML 1,000 ML IV ONE (11:58)
--- NOTE | 2018-07-16 12:01 | Progress Note ---
Assessment and Plan - Patient Problems (1) Perforated viscus Current Visit: Yes Status: Acute Plan to address problem: 58 yo F s/p 1) Abdominal re-exploration and washout, cholecystectomy, primary closure of abdominal wall 07/10/18, POD 6 2) exploratory laparotomy, small bowel resection with primary anastamosis, right hemicolectomy with ileocolonic anastamosis, temporary closure of abdomen with abthera vac 07/07/18 - POD#9; 3) Exploratory laparotomy, small bowel resection, partial colon resection, temporary abdominal closure with abthera vac 07/04/18, POD#12 ; and 4) Exploratory laparotomy, Ezequiel's procedure 06/24/18 Problem list: 1. 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 Respiratory failure 5. COPD Plan: 1. Diet as tolerated 2. TPN - can d/c 3. prn IV pain control 4. incentive spirometry/pulm toilet 5. IV abx per ID 6. GI ppx 7. continue OOB/PT 8. Mild dehydration - encourage PO intake and will give 1L bolus. 9. discharge planning. Please call with questions. Subjective Date of service: 07/16/18 Patient Reports: Positive: no new complaints, feels better (slept well), tolerating a regular diet. Negative: nausea, vomiting Objective Vital Signs - 12hr 07/16/18 07/16/18 07/16/18 00:45 01:15 04:45 Temperature Pulse Rate Pulse Rate [ Anterior Bilateral Throughout] Respiratory 18 20 20 Rate Respiratory Rate [Anterior Bilateral Throughout] Blood Pressure [Left] O2 Sat by Pulse Oximetry 07/16/18 07/16/18 07/16/18 05:15 06:00 08:30 Temperature 97.6 F 98.1 F Pulse Rate 113 H 110 H Pulse Rate [ Anterior Bilateral Throughout] Respiratory 18 20 20 Rate Respiratory Rate [Anterior Bilateral Throughout] Blood Pressure 120/71 120/69 [Left] O2 Sat by Pulse 97 96 Oximetry 07/16/18 07/16/18 07/16/18 09:11 11:04 11:05 Temperature Pulse Rate Pulse Rate [ 100 H Anterior Bilateral Throughout] Respiratory 20 Rate Respiratory 17 Rate [Anterior Bilateral Throughout] Blood Pressure [Left] O2 Sat by Pulse 98 Oximetry 07/16/18 11:12 Temperature Pulse Rate Pulse Rate [ 104 H Anterior Bilateral Throughout] Respiratory Rate Respiratory 17 Rate [Anterior Bilateral Throughout] Blood Pressure [Left] O2 Sat by Pulse Oximetry - General physical appearance no distress, no pain, other (looks better every day) - Respiratory normal expansion, normal respiratory effort - Abdomen soft, not tender, not guarding, not rigid, surgical scars (C/D/I) - Psychiatric oriented to time, oriented to person, oriented to place, speech is normal, memory intact - Labs 07/15/18 04:11 07/16/18 04:28 Diabetes panel 07/16/18 Range/Units 04:28 Sodium 136 L (137-145) mmol/L Potassium 4.2 (3.6-5.0) mmol/L Chloride 99.3 (98-107) mmol/L Carbon Dioxide 24 (22-30) mmol/L BUN 22 H (7-17) mg/dL Creatinine 0.2 L (0.7-1.2) mg/dL Glucose 131 H (65-100) mg/dL Calcium 8.4 (8.4-10.2) mg/dL Calcium panel 07/16/18 Range/Units 04:28 Calcium 8.4 (8.4-10.2) mg/dL Phosphorus 3.60 (2.5-4.5) mg/dL Pituitary panel 07/16/18 Range/Units 04:28 Sodium 136 L (137-145) mmol/L Potassium 4.2 (3.6-5.0) mmol/L Chloride 99.3 (98-107) mmol/L Carbon Dioxide 24 (22-30) mmol/L BUN 22 H (7-17) mg/dL Creatinine 0.2 L (0.7-1.2) mg/dL Glucose 131 H (65-100) mg/dL Calcium 8.4 (8.4-10.2) mg/dL Adrenal panel 07/16/18 Range/Units 04:28 Sodium 136 L (137-145) mmol/L Potassium 4.2 (3.6-5.0) mmol/L Chloride 99.3 (98-107) mmol/L Carbon Dioxide 24 (22-30) mmol/L BUN 22 H (7-17) mg/dL Creatinine 0.2 L (0.7-1.2) mg/dL Glucose 131 H (65-100) mg/dL Calcium 8.4 (8.4-10.2) mg/dL
[2018-07-16] MEDS: COUMADIN PO SCH (17:31)
[2018-07-16] MEDS ORDERED: TPN ADULT 1,800 ML IV SCH (20:00)
[2018-07-16] MEDS: AMBIEN PO PRN (23:06)
[2018-07-17] MEDS: SODIUM CHLORIDE FLUSH SYRINGE 10 ML IV SCH ×3 (01:58→23:03)
[2018-07-17] MEDS: DILAUDID IV PRN ×5 (02:00→20:29)
[2018-07-17] MEDS: ZOFRAN IV PRN (02:01)
[2018-07-17 03:57] LABS: Basophils % (Auto) 0.3 % (0.0-1.8); Eosinophils # (Auto) 0.1 K/mm3 (0.0-0.4); Eosinophils % (Auto) 1.1 % (0.0-4.3); Hematocrit 27.3 % (30.3-42.9); Hemoglobin 9.1 gm/dl (10.1-14.3); Lymphocytes # (Auto) 1.5 K/mm3 (1.2-5.4); Lymphocytes % (Auto) 14.4 % (13.4-35.0); Mean Corpuscular HGB Conc 34 % (30-34); Mean Corpuscular Volume 90 fl (79-97); Monocytes # (Auto) 0.8 K/mm3 (0.0-0.8); Monocytes % (Auto) 7.6 % (0.0-7.3); Platelet Count 408 K/mm3 (140-440); Red Blood Count 3.03 M/mm3 (3.65-5.03); Red Cell Distribution Width 16.5 % (13.2-15.2)
[2018-07-17 04:06] LABS: INR 2.46 (0.87-1.13)
[2018-07-17 04:13] LABS: Alanine Aminotransferase 48 units/L (7-56); Albumin 2.4 g/dL (3.9-5); BUN/Creatinine Ratio 105; Blood Urea Nitrogen 21 mg/dL (7-17); Calcium 8.5 mg/dL (8.4-10.2); Hemolysis Index 1
[2018-07-17] MEDS: BROVANA NEBU IH SCH ×2 (08:17→20:29)
[2018-07-17] MEDS: PULMICORT IH SCH ×2 (08:17→20:28)
[2018-07-17] MEDS: HABITROL TD SCH (09:59)
[2018-07-17] MEDS: LOPRESSOR PO SCH ×2 (09:59→21:29)
[2018-07-17] MEDS: SODIUM CHLORIDE FLUSH SYRINGE 10 ML IV PRN (10:00)
[2018-07-17] MEDS: PEPCID IV SCH ×2 (10:00→21:29)
--- NOTE | 2018-07-17 10:43 | Progress Note ---
Assessment and Plan Cultures: 06/26/2018 Blood culture no growth 07/03/2018 Blood culture no growth so far 07/04/2018 Sputum usual respiratory kait Assessment: 58 y/o female with history of HTN, tobacco dependence admitted on 06/24/2018 due to a week history of severe abdominal pain, constipation and nausea. 1) Severe sepsis: resolved. No leukocytosis. Etiology most likely peritonitis from diverticular perforation and leukemoid reaction likely due to bowel ischemia. 2) Acute fecal peritonitis from diverticular perforation/abscess: went to OR on 06/24/2018 for Exploratory laparotomy, Ezequiel's for perforated sigmoid diverticulitis with purulent peritonitis. 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 No pulsation in SMA, small bowel resection, partial colon resection, temporary abdominal closure with abthera vac on 07/04. Now again to OR on 07/07/2018, was found to have an 8 cm area of necrotic small bowel. S/P Abdominal re-exploration and washout, cholecystectomy, primary closure of abdominal wall 07/10/18. Completed empiric abx. 3) Bilateral pneumonia: ?aspiration v/s HAP. CTA showed scattered infiltrates identified in both lungs, this is most prominent in the right lower lung, slight bilateral effusions, no evidence of pulmonary arterial emboli. 4) Acute hypoxemic resp failure: extubated, doing well. 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 s/p surgery as above. On anticoagulation. Recommendations: -Clinically stable, ID is signing off [facility] M: [id number] O:[phone] Subjective Date of service: 07/17/18 Principal diagnosis: small bowel ischemiaperitonitis/penumonia Interval history: Patient seen and examined. Reports no generalized pain, weakness or SOB. No fevers. Eating regular diet. Objective - Exam Narrative Exam: Constitutional: awake, alert, No acute distress Head, Ears, Nose: Normocephalic, atraumatic. External ears, nose normal Eyes: Conjunctivae/corneas clear. No icterus. No ptosis. Neck: supple, no meningeal signs Oral: no thrush, no ulcers Cardiovascular: S1, S2 normal. Respiratory: Good air entry, clear to auscultation bilaterally GI: soft, colostomy +, midline dressing +, bowel sounds + Musculoskeletal: No pedal edema, no cyanosis. Skin: No rash or abscess Hem/Lymphatic: No palpable cervical or supraclavicular nodes. No lymphangitis Psych: mood good, pleasant Neurological: awake, alert, oriented - Constitutional Vitals: Vital Signs Temp Pulse Resp BP Pulse Ox 98.9 F 106 H 16 113/64 97 07/17/18 07:11 07/17/18 08:28 07/17/18 08:28 07/17/18 07:11 07/17/18 08:17 Temperature -Last 24 Hours Temperature 98.9 F Temperature 98.1 F Temperature 98.4 F Temperature 98.7 F Temperature 98 F - Labs CBC & Chem 7: 07/17/18 03:18 07/17/18 03:18 Labs: Abnormal lab results 07/15/18 07/16/18 07/16/18 Range/Units 22:29 05:24 11:44 RBC (3.65-5.03) M/mm3 Hgb (10.1-14.3) gm/dl Hct (30.3-42.9) % RDW (13.2-15.2) % Ida % (Auto) (0.0-7.3) % Seg Neutrophils % (40.0-70.0) % Seg Neutrophils # (1.8-7.7) K/mm3 PT (12.2-14.9) Sec. INR (0.87-1.13) BUN (7-17) mg/dL Creatinine (0.7-1.2) mg/dL Glucose (65-100) mg/dL POC Glucose 130 H 138 H 110 H (70-105) Alkaline Phosphatase (35-129) units/L Total Protein (6.3-8.2) g/dL Albumin (3.9-5) g/dL 07/16/18 07/16/18 07/17/18 Range/Units 17:58 23:26 03:18 RBC (3.65-5.03) M/mm3 Hgb (10.1-14.3) gm/dl Hct (30.3-42.9) % RDW (13.2-15.2) % Ida % (Auto) (0.0-7.3) % Seg Neutrophils % (40.0-70.0) % Seg Neutrophils # (1.8-7.7) K/mm3 PT 28.4 H (12.2-14.9) Sec. INR 2.46 H (0.87-1.13) BUN (7-17) mg/dL Creatinine (0.7-1.2) mg/dL Glucose (65-100) mg/dL POC Glucose 161 H 143 H (70-105) Alkaline Phosphatase (35-129) units/L Total Protein (6.3-8.2) g/dL Albumin (3.9-5) g/dL 07/17/18 07/17/18 07/17/18 Range/Units 03:18 03:18 07:15 RBC 3.03 L (3.65-5.03) M/mm3 Hgb 9.1 L (10.1-14.3) gm/dl Hct 27.3 L (30.3-42.9) % RDW 16.5 H (13.2-15.2) % Ida % (Auto) 7.6 H (0.0-7.3) % Seg Neutrophils % 76.6 H (40.0-70.0) % Seg Neutrophils # 8.0 H (1.8-7.7) K/mm3 PT (12.2-14.9) Sec. INR (0.87-1.13) BUN 21 H (7-17) mg/dL Creatinine < 0.2 L (0.7-1.2) mg/dL Glucose 140 H (65-100) mg/dL POC Glucose 146 H (70-105) Alkaline Phosphatase 337 H (35-129) units/L Total Protein 6.2 L (6.3-8.2) g/dL Albumin 2.4 L (3.9-5) g/dL
--- NOTE | 2018-07-17 11:15 | Progress Note ---
Assessment and Plan - Patient Problems (1) Perforated viscus Current Visit: Yes Status: Acute Plan to address problem: 58 yo F s/p 1) Abdominal re-exploration and washout, cholecystectomy, primary closure of abdominal wall 07/10/18, POD 7 2) exploratory laparotomy, small bowel resection with primary anastamosis, right hemicolectomy with ileocolonic anastamosis, temporary closure of abdomen with abthera vac 07/07/18 - POD#10; 3) Exploratory laparotomy, small bowel resection, partial colon resection, temporary abdominal closure with abthera vac 07/04/18, POD#13 ; and 4) Exploratory laparotomy, Ezequiel's procedure 06/24/18 Problem list: 1. 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 Respiratory failure 5. COPD Plan: 1. Diet as tolerated 2. TPN - can d/c 3. prn IV pain control 4. incentive spirometry/pulm toilet 5. IV abx per ID 6. GI ppx 7. continue OOB/PT 8. discharge planning. Please call with questions. Subjective Date of service: 07/17/18 Patient Reports: Positive: tolerating a regular diet, other (had pain in right thigh that was sudden. ). Negative: nausea, vomiting Objective Vital Signs - 12hr 07/17/18 07/17/18 07/17/18 06:18 07:11 08:17 Temperature 98.1 F 98.9 F Pulse Rate 102 H 107 H Pulse Rate [ Anterior Bilateral Throughout] Respiratory 18 22 Rate Respiratory Rate [Anterior Bilateral Throughout] Blood Pressure 113/64 Blood Pressure 100/49 [Left] O2 Sat by Pulse 97 98 97 Oximetry 07/17/18 07/17/18 08:18 08:28 Temperature Pulse Rate Pulse Rate [ 105 H 106 H Anterior Bilateral Throughout] Respiratory Rate Respiratory 16 16 Rate [Anterior Bilateral Throughout] Blood Pressure Blood Pressure [Left] O2 Sat by Pulse Oximetry - General physical appearance no distress, no pain, other (sitting up in chair. Looks good) - Respiratory normal expansion, normal respiratory effort - Abdomen soft, not tender, not distended, surgical scars (dressing dry. ), other (ostomy - air and stool in bag) - Integumentary no rash, no growths, no abnormal pigmentation - Psychiatric oriented to time, oriented to person, oriented to place, speech is normal, memory intact - Labs 07/17/18 03:18 07/17/18 03:18 Diabetes panel 07/17/18 Range/Units 03:18 Sodium 140 (137-145) mmol/L Potassium 4.1 (3.6-5.0) mmol/L Chloride 105.2 (98-107) mmol/L Carbon Dioxide 27 (22-30) mmol/L BUN 21 H (7-17) mg/dL Creatinine < 0.2 L (0.7-1.2) mg/dL Glucose 140 H (65-100) mg/dL Calcium 8.5 (8.4-10.2) mg/dL AST 31 (5-40) units/L ALT 48 (7-56) units/L Alkaline Phosphatase 337 H (35-129) units/L Total Protein 6.2 L (6.3-8.2) g/dL Albumin 2.4 L (3.9-5) g/dL Calcium panel 07/17/18 Range/Units 03:18 Calcium 8.5 (8.4-10.2) mg/dL Albumin 2.4 L (3.9-5) g/dL Pituitary panel 07/17/18 Range/Units 03:18 Sodium 140 (137-145) mmol/L Potassium 4.1 (3.6-5.0) mmol/L Chloride 105.2 (98-107) mmol/L Carbon Dioxide 27 (22-30) mmol/L BUN 21 H (7-17) mg/dL Creatinine < 0.2 L (0.7-1.2) mg/dL Glucose 140 H (65-100) mg/dL Calcium 8.5 (8.4-10.2) mg/dL Adrenal panel 07/17/18 Range/Units 03:18 Sodium 140 (137-145) mmol/L Potassium 4.1 (3.6-5.0) mmol/L Chloride 105.2 (98-107) mmol/L Carbon Dioxide 27 (22-30) mmol/L BUN 21 H (7-17) mg/dL Creatinine < 0.2 L (0.7-1.2) mg/dL Glucose 140 H (65-100) mg/dL Calcium 8.5 (8.4-10.2) mg/dL Total Bilirubin 0.50 (0.1-1.2) mg/dL AST 31 (5-40) units/L ALT 48 (7-56) units/L Alkaline Phosphatase 337 H (35-129) units/L Total Protein 6.2 L (6.3-8.2) g/dL Albumin 2.4 L (3.9-5) g/dL
--- NOTE | 2018-07-17 13:30 | Progress Note ---
Assessment and Plan Exploratory lap, multiple surgeries - re-exploratory laparotomy, prior small bowel resection, partial colon resection, temporary abdominal closure with abthera vac s/p acute bowel perforation, diverticulitis. Suspected embolic triggered bowel ischemia Post op acute respiratory failure secondary to volume overload. COPD . Controlled Hypokalemia Recommendations Incentive spirometry Encouraged cough and deep breathing twice per hour ambulate as tolerated Nutritional support, per surgery Go Home on Albuterol MDI As Needed, Symbicort Twice a Day Outpatient pulmonary follow-up for COPD Further orders per primary care team Can go home from pulmonary standpoint Discussed with patient in detail. All questions answered. Signing off Subjective Date of service: 07/17/18 Principal diagnosis: small bowel ischemiaperitonitis/penumonia Interval history: No respiratory complains eager to go home Objective Vital Signs - 12hr 07/17/18 07/17/18 07/17/18 06:18 07:11 08:17 Temperature 98.1 F 98.9 F Pulse Rate 102 H 107 H Pulse Rate [ Anterior Bilateral Throughout] Respiratory 18 22 Rate Respiratory Rate [Anterior Bilateral Throughout] Blood Pressure 113/64 Blood Pressure 100/49 [Left] O2 Sat by Pulse 97 98 97 Oximetry 07/17/18 07/17/18 07/17/18 08:18 08:28 11:40 Temperature 98.0 F Pulse Rate 104 H Pulse Rate [ 105 H 106 H Anterior Bilateral Throughout] Respiratory 20 Rate Respiratory 16 16 Rate [Anterior Bilateral Throughout] Blood Pressure 116/61 Blood Pressure [Left] O2 Sat by Pulse 97 Oximetry Constitutional: no acute distress, alert Eyes: non-icteric Neck: supple, no JVD Effort: normal Ascultation: Right: clear (faint rhonchi easily clearing with cough) Percussion: Bilateral: not dull Tactile fremitus: Bilateral: normal Cardiovascular: regular rate and rhythm Gastrointestinal: hypoactive bowel sounds, tender, other ( covered exploratory lab,colostomy) Integumentary: normal Extremities: no cyanosis, no edema Neurologic: normal mental status, non-focal exam Psychiatric: mood appropriate CBC and BMP: 07/17/18 03:18 07/17/18 03:18 ABG, PT/INR, D-dimer: ABG POC ABG pH 7.431 (7.35-7.45) 07/10/18 04:32 POC ABG pCO2 48.5 (35-45) H 07/10/18 04:32 POC ABG pO2 104 (80-105) 07/10/18 04:32 POC ABG HCO3 32.2 (22-26 mml/L) 07/10/18 04:32 POC ABG Total CO2 34 (23-27mmol/L) 07/10/18 04:32 POC ABG O2 Sat 98 07/10/18 04:32 PT/INR, D-dimer PT 28.4 Sec. (12.2-14.9) H 07/17/18 03:18 INR 2.46 (0.87-1.13) H 07/17/18 03:18 Abnormal lab findings: Abnormal Labs 06/24/18 06/24/18 06/24/18 11:18 11:19 11:19 WBC 19.0 H RBC Hgb Hct MCHC 35 H RDW Plt Count 457 H Lymph % (Auto) [place] % (Auto) [place] # Baso # Seg Neutrophils % Seg Neuts % (Manual) 88.0 H Lymphocytes % (Manual) 2.0 L Monocytes % (Manual) Seg Neutrophils # Seg Neutrophils # Man 16.7 H Lymphocytes # (Manual) 0.4 L Monocytes # (Manual) PT 15.9 H INR 1.19 H APTT Heparin Anti-Xa Level POC ABG pH POC ABG pCO2 POC ABG pO2 Sodium 136 L Potassium 2.8 L* Chloride 96.7 L Carbon Dioxide BUN Creatinine 0.4 L Glucose 146 H POC Glucose Calcium Phosphorus TIBC Total Bilirubin 1.90 H Direct Bilirubin 1.5 H Alkaline Phosphatase 264 H C-Reactive Protein NT-Pro-B Natriuret Pep Total Protein Albumin 3.0 L Prealbumin Lipase 8 L Vitamin B12 Folate Ur Specific [place] Vancomycin Trough Crossmatch 06/24/18 06/24/18 06/25/18 13:00 19:47 06:55 WBC 18.3 H RBC Hgb Hct MCHC 35 H RDW Plt Count 481 H Lymph % (Auto) [place] % (Auto) [place] # Baso # Seg Neutrophils % Seg Neuts % (Manual) 88.0 H Lymphocytes % (Manual) 4.0 L Monocytes % (Manual) Seg Neutrophils # Seg Neutrophils # Man 16.1 H Lymphocytes # (Manual) 0.7 L Monocytes # (Manual) PT INR APTT Heparin Anti-Xa Level POC ABG pH POC ABG pCO2 POC ABG pO2 Sodium Potassium 3.5 L D Chloride Carbon Dioxide 21 L BUN Creatinine 0.3 L Glucose 166 H POC Glucose Calcium 7.4 L D Phosphorus TIBC Total Bilirubin Direct Bilirubin Alkaline Phosphatase C-Reactive Protein NT-Pro-B Natriuret Pep Total Protein Albumin Prealbumin Lipase Vitamin B12 Folate Ur Specific [place] > 1.059 H Vancomycin Trough Crossmatch 06/25/18 06/26/18 06/26/18 06:55 11:54 11:54 WBC 19.9 H RBC 3.48 L Hgb Hct MCHC RDW Plt Count 583 H Lymph % (Auto) [place] % (Auto) [place] # Baso # Seg Neutrophils % Seg Neuts % (Manual) Lymphocytes % (Manual) Monocytes % (Manual) Seg Neutrophils # Seg Neutrophils # Man Lymphocytes # (Manual) Monocytes # (Manual) PT INR APTT Heparin Anti-Xa Level POC ABG pH POC ABG pCO2 POC ABG pO2 Sodium 146 H Potassium 3.5 L Chloride 108.3 H 109.9 H Carbon Dioxide BUN Creatinine 0.4 L 0.3 L Glucose 159 H 153 H POC Glucose Calcium 7.7 L 8.2 L Phosphorus TIBC Total Bilirubin Direct Bilirubin Alkaline Phosphatase 152 H C-Reactive Protein NT-Pro-B Natriuret Pep Total Protein 5.3 L Albumin 2.1 L Prealbumin Lipase Vitamin B12 Folate Ur Specific [place] Vancomycin Trough Crossmatch 06/26/18 06/26/18 06/27/18 14:12 20:37 02:04 WBC RBC Hgb Hct MCHC RDW Plt Count Lymph % (Auto) [place] % (Auto) [place] # Baso # Seg Neutrophils % Seg Neuts % (Manual) Lymphocytes % (Manual) Monocytes % (Manual) Seg Neutrophils # Seg Neutrophils # Man Lymphocytes # (Manual) Monocytes # (Manual) PT INR APTT Heparin Anti-Xa Level POC ABG pH 7.471 H 7.458 H POC ABG pCO2 POC ABG pO2 74 L 70 L Sodium Potassium Chloride Carbon Dioxide BUN Creatinine Glucose POC Glucose Calcium Phosphorus TIBC Total Bilirubin Direct Bilirubin Alkaline Phosphatase C-Reactive Protein 25.70 H NT-Pro-B Natriuret Pep Total Protein Albumin Prealbumin Lipase Vitamin B12 Folate Ur Specific [place] Vancomycin Trough Crossmatch 06/27/18 06/27/18 06/28/18 09:19 11:50 00:17 WBC 24.5 H 37.2 H RBC Hgb Hct MCHC RDW 15.4 H Plt Count 583 H 657 H Lymph % (Auto) [place] % (Auto) [place] # Baso # Seg Neutrophils % Seg Neuts % (Manual) 98.0 H 88.5 H Lymphocytes % (Manual) 1.0 L 4.0 L Monocytes % (Manual) Seg Neutrophils # Seg Neutrophils # Man 24.0 H 32.9 H Lymphocytes # (Manual) 0.2 L Monocytes # (Manual) 1.1 H PT INR APTT Heparin Anti-Xa Level POC ABG pH POC ABG pCO2 POC ABG pO2 Sodium 146 H Potassium 3.5 L Chloride Carbon Dioxide BUN Creatinine 0.3 L Glucose 176 H POC Glucose Calcium 8.2 L Phosphorus TIBC Total Bilirubin Direct Bilirubin Alkaline Phosphatase C-Reactive Protein NT-Pro-B Natriuret Pep Total Protein Albumin Prealbumin Lipase Vitamin B12 Folate Ur Specific [place] Vancomycin Trough Crossmatch 06/28/18 06/28/18 06/28/18 09:56 09:56 09:56 WBC 37.8 H RBC Hgb Hct MCHC RDW 15.3 H Plt Count 634 H Lymph % (Auto) [place] % (Auto) [place] # Baso # Seg Neutrophils % Seg Neuts % (Manual) Lymphocytes % (Manual) Monocytes % (Manual) Seg Neutrophils # Seg Neutrophils # Man Lymphocytes # (Manual) Monocytes # (Manual) PT INR APTT Heparin Anti-Xa Level POC ABG pH POC ABG pCO2 POC ABG pO2 Sodium 146 H Potassium 2.8 L* Chloride Carbon Dioxide 31 H BUN Creatinine 0.3 L Glucose 142 H POC Glucose Calcium 8.2 L Phosphorus TIBC Total Bilirubin Direct Bilirubin Alkaline Phosphatase C-Reactive Protein NT-Pro-B Natriuret Pep 1572 H Total Protein Albumin Prealbumin Lipase Vitamin B12 Folate Ur Specific [place] Vancomycin Trough Crossmatch 06/28/18 06/28/18 06/29/18 13:19 21:24 00:57 WBC 28.9 H RBC Hgb Hct MCHC RDW Plt Count 681 H Lymph % (Auto) [place] % (Auto) [place] # Baso # Seg Neutrophils % Seg Neuts % (Manual) 93.0 H Lymphocytes % (Manual) 1.5 L Monocytes % (Manual) Seg Neutrophils # Seg Neutrophils # Man 26.9 H Lymphocytes # (Manual) 0.4 L Monocytes # (Manual) PT INR APTT Heparin Anti-Xa Level POC ABG pH 7.470 H POC ABG pCO2 53.0 H POC ABG pO2 120 H Sodium Potassium 3.0 L Chloride Carbon Dioxide 33 H BUN Creatinine 0.3 L Glucose 116 H POC Glucose Calcium 8.2 L Phosphorus TIBC Total Bilirubin Direct Bilirubin Alkaline Phosphatase C-Reactive Protein NT-Pro-B Natriuret Pep Total Protein Albumin Prealbumin Lipase Vitamin B12 Folate Ur Specific [place] Vancomycin Trough Crossmatch 06/29/18 06/29/18 06/29/18 05:58 05:58 12:21 WBC 25.8 H RBC Hgb Hct MCHC RDW Plt Count 661 H Lymph % (Auto) [place] % (Auto) [place] # Baso # Seg Neutrophils % Seg Neuts % (Manual) Lymphocytes % (Manual) Monocytes % (Manual) Seg Neutrophils # Seg Neutrophils # Man Lymphocytes # (Manual) Monocytes # (Manual) PT INR APTT Heparin Anti-Xa Level POC ABG pH POC ABG pCO2 POC ABG pO2 Sodium Potassium 2.7 L* Chloride Carbon Dioxide 35 H BUN Creatinine 0.3 L Glucose 132 H POC Glucose 130 H Calcium 8.2 L Phosphorus TIBC Total Bilirubin Direct Bilirubin Alkaline Phosphatase C-Reactive Protein NT-Pro-B Natriuret Pep Total Protein Albumin Prealbumin Lipase Vitamin B12 Folate Ur Specific [place] Vancomycin Trough Crossmatch 06/29/18 06/29/18 06/30/18 17:53 18:52 05:02 WBC RBC Hgb Hct MCHC RDW Plt Count Lymph % (Auto) [place] % (Auto) [place] # Baso # Seg Neutrophils % Seg Neuts % (Manual) Lymphocytes % (Manual) Monocytes % (Manual) Seg Neutrophils # Seg Neutrophils # Man Lymphocytes # (Manual) Monocytes # (Manual) PT INR APTT Heparin Anti-Xa Level POC ABG pH POC ABG pCO2 POC ABG pO2 Sodium Potassium 3.1 L Chloride Carbon Dioxide 33 H BUN Creatinine 0.3 L Glucose 129 H POC Glucose 109 H 106 H Calcium 8.2 L Phosphorus TIBC Total Bilirubin Direct Bilirubin Alkaline Phosphatase C-Reactive Protein NT-Pro-B Natriuret Pep Total Protein Albumin Prealbumin Lipase Vitamin B12 Folate Ur Specific [place] Vancomycin Trough Crossmatch 06/30/18 06/30/18 06/30/18 07:19 07:19 16:17 WBC 23.1 H RBC Hgb Hct MCHC RDW Plt Count 652 H Lymph % (Auto) [place] % (Auto) [place] # Baso # Seg Neutrophils % Seg Neuts % (Manual) Lymphocytes % (Manual) Monocytes % (Manual) Seg Neutrophils # Seg Neutrophils # Man Lymphocytes # (Manual) Monocytes # (Manual) PT INR APTT Heparin Anti-Xa Level POC ABG pH POC ABG pCO2 POC ABG pO2 Sodium Potassium 2.8 L* Chloride Carbon Dioxide BUN Creatinine 0.3 L Glucose 109 H POC Glucose Calcium 8.2 L Phosphorus TIBC Total Bilirubin Direct Bilirubin Alkaline Phosphatase C-Reactive Protein NT-Pro-B Natriuret Pep Total Protein Albumin Prealbumin Lipase Vitamin B12 Folate Ur Specific [place] Vancomycin Trough < 4.0 L Crossmatch 06/30/18 06/30/18 06/30/18 16:17 16:17 19:00 WBC RBC Hgb Hct MCHC RDW Plt Count Lymph % (Auto) [place] % (Auto) [place] # Baso # Seg Neutrophils % Seg Neuts % (Manual) Lymphocytes % (Manual) Monocytes % (Manual) Seg Neutrophils # Seg Neutrophils # Man Lymphocytes # (Manual) Monocytes # (Manual) PT INR APTT Heparin Anti-Xa Level POC ABG pH POC ABG pCO2 POC ABG pO2 Sodium Potassium 3.0 L 3.2 L Chloride Carbon Dioxide BUN Creatinine 0.3 L Glucose 138 H POC Glucose Calcium Phosphorus 2.30 L D TIBC Total Bilirubin Direct Bilirubin Alkaline Phosphatase C-Reactive Protein NT-Pro-B Natriuret Pep Total Protein Albumin Prealbumin Lipase Vitamin B12 Folate Ur Specific [place] Vancomycin Trough Crossmatch 07/01/18 07/01/18 07/01/18 04:04 04:04 12:21 WBC 26.3 H RBC Hgb Hct MCHC RDW Plt Count Lymph % (Auto) [place] % (Auto) [place] # Baso # Seg Neutrophils % Seg Neuts % (Manual) Lymphocytes % (Manual) Monocytes % (Manual) Seg Neutrophils # Seg Neutrophils # Man Lymphocytes # (Manual) Monocytes # (Manual) PT INR APTT Heparin Anti-Xa Level POC ABG pH POC ABG pCO2 POC ABG pO2 Sodium 147 H Potassium Chloride Carbon Dioxide BUN 22 H Creatinine 0.3 L Glucose 126 H POC Glucose 190 H Calcium Phosphorus TIBC Total Bilirubin Direct Bilirubin Alkaline Phosphatase C-Reactive Protein NT-Pro-B Natriuret Pep Total Protein Albumin Prealbumin Lipase Vitamin B12 Folate Ur Specific [place] Vancomycin Trough Crossmatch 07/02/18 07/02/18 07/03/18 04:17 04:17 09:58 WBC 40.2 H* 48.6 H* RBC 3.51 L Hgb Hct MCHC RDW Plt Count Lymph % (Auto) [place] % (Auto) [place] # Baso # Seg Neutrophils % Seg Neuts % (Manual) Lymphocytes % (Manual) Monocytes % (Manual) Seg Neutrophils # Seg Neutrophils # Man Lymphocytes # (Manual) Monocytes # (Manual) PT INR APTT Heparin Anti-Xa Level POC ABG pH POC ABG pCO2 POC ABG pO2 Sodium Potassium 3.4 L Chloride Carbon Dioxide 32 H BUN 30 H Creatinine 0.3 L Glucose 166 H POC Glucose Calcium Phosphorus TIBC Total Bilirubin Direct Bilirubin Alkaline Phosphatase C-Reactive Protein NT-Pro-B Natriuret Pep Total Protein Albumin Prealbumin Lipase Vitamin B12 Folate Ur Specific [place] Vancomycin Trough Crossmatch 07/03/18 07/03/18 07/04/18 09:58 11:07 05:37 WBC 48.5 H* RBC 3.53 L Hgb Hct MCHC RDW Plt Count 477 H Lymph % (Auto) [place] % (Auto) [place] # Baso # Seg Neutrophils % Seg Neuts % (Manual) Lymphocytes % (Manual) Monocytes % (Manual) Seg Neutrophils # Seg Neutrophils # Man Lymphocytes # (Manual) Monocytes # (Manual) PT INR APTT Heparin Anti-Xa Level POC ABG pH POC ABG pCO2 POC ABG pO2 Sodium Potassium 3.5 L Chloride Carbon Dioxide 31 H BUN 33 H Creatinine 0.3 L Glucose 162 H POC Glucose Calcium Phosphorus TIBC Total Bilirubin Direct Bilirubin Alkaline Phosphatase C-Reactive Protein 13.20 H NT-Pro-B Natriuret Pep Total Protein Albumin Prealbumin Lipase Vitamin B12 Folate Ur Specific [place] Vancomycin Trough Crossmatch 07/04/18 07/04/18 07/04/18 05:37 17:54 17:54 WBC RBC Hgb Hct MCHC RDW Plt Count Lymph % (Auto) [place] % (Auto) [place] # Baso # Seg Neutrophils % Seg Neuts % (Manual) Lymphocytes % (Manual) Monocytes % (Manual) Seg Neutrophils # Seg Neutrophils # Man Lymphocytes # (Manual) Monocytes # (Manual) PT INR APTT Heparin Anti-Xa Level POC ABG pH POC ABG pCO2 POC ABG pO2 Sodium Potassium 3.4 L Chloride Carbon Dioxide 32 H BUN 30 H Creatinine 0.3 L Glucose 146 H POC Glucose Calcium Phosphorus TIBC Total Bilirubin Direct Bilirubin Alkaline Phosphatase C-Reactive Protein NT-Pro-B Natriuret Pep Total Protein Albumin Prealbumin Lipase Vitamin B12 Folate Ur Specific [place] Vancomycin Trough Crossmatch See Detail See Detail 07/04/18 07/04/18 07/04/18 19:00 19:00 21:50 WBC RBC Hgb 9.5 L Hct 28.7 L MCHC RDW Plt Count 512 H Lymph % (Auto) [place] % (Auto) [place] # Baso # Seg Neutrophils % Seg Neuts % (Manual) Lymphocytes % (Manual) Monocytes % (Manual) Seg Neutrophils # Seg Neutrophils # Man Lymphocytes # (Manual) Monocytes # (Manual) PT 18.7 H INR 1.46 H APTT Heparin Anti-Xa Level POC ABG pH 7.469 H POC ABG pCO2 45.8 H POC ABG pO2 109 H Sodium Potassium Chloride Carbon Dioxide BUN Creatinine Glucose POC Glucose Calcium Phosphorus TIBC Total Bilirubin Direct Bilirubin Alkaline Phosphatase C-Reactive Protein NT-Pro-B Natriuret Pep Total Protein Albumin Prealbumin Lipase Vitamin B12 Folate Ur Specific [place] Vancomycin Trough Crossmatch 07/05/18 07/05/18 07/05/18 03:14 03:14 03:14 WBC 36.6 H RBC 3.12 L Hgb 9.1 L Hct 27.5 L MCHC RDW Plt Count 529 H Lymph % (Auto) [place] % (Auto) [place] # Baso # Seg Neutrophils % Seg Neuts % (Manual) Lymphocytes % (Manual) Monocytes % (Manual) Seg Neutrophils # Seg Neutrophils # Man Lymphocytes # (Manual) Monocytes # (Manual) PT INR APTT Heparin Anti-Xa Level 0.10 L POC ABG pH POC ABG pCO2 POC ABG pO2 Sodium Potassium Chloride Carbon Dioxide BUN 29 H Creatinine 0.2 L Glucose 149 H POC Glucose Calcium 8.1 L Phosphorus TIBC Total Bilirubin Direct Bilirubin Alkaline Phosphatase C-Reactive Protein NT-Pro-B Natriuret Pep Total Protein 4.5 L Albumin 1.6 L Prealbumin Lipase Vitamin B12 Folate Ur Specific [place] Vancomycin Trough Crossmatch 07/05/18 07/05/18 07/05/18 04:45 10:57 10:57 WBC RBC Hgb Hct MCHC RDW Plt Count Lymph % (Auto) [place] % (Auto) [place] # Baso # Seg Neutrophils % Seg Neuts % (Manual) Lymphocytes % (Manual) Monocytes % (Manual) Seg Neutrophils # Seg Neutrophils # Man Lymphocytes # (Manual) Monocytes # (Manual) PT INR APTT Heparin Anti-Xa Level < 0.10 L POC ABG pH POC ABG pCO2 50.6 H POC ABG pO2 181 H Sodium Potassium Chloride Carbon Dioxide BUN Creatinine Glucose POC Glucose Calcium Phosphorus TIBC Total Bilirubin Direct Bilirubin Alkaline Phosphatase C-Reactive Protein NT-Pro-B Natriuret Pep Total Protein Albumin Prealbumin Lipase Vitamin B12 Folate Ur Specific [place] Vancomycin Trough 38.9 H Crossmatch 07/05/18 07/06/18 07/06/18 18:27 02:00 04:48 WBC RBC Hgb Hct MCHC RDW Plt Count Lymph % (Auto) [place] % (Auto) [place] # Baso # Seg Neutrophils % Seg Neuts % (Manual) Lymphocytes % (Manual) Monocytes % (Manual) Seg Neutrophils # Seg Neutrophils # Man Lymphocytes # (Manual) Monocytes # (Manual) PT INR APTT Heparin Anti-Xa Level < 0.10 L 0.23 L POC ABG pH POC ABG pCO2 POC ABG pO2 118 H Sodium Potassium Chloride Carbon Dioxide BUN Creatinine Glucose POC Glucose Calcium Phosphorus TIBC Total Bilirubin Direct Bilirubin Alkaline Phosphatase C-Reactive Protein NT-Pro-B Natriuret Pep Total Protein Albumin Prealbumin Lipase Vitamin B12 Folate Ur Specific [place] Vancomycin Trough Crossmatch 07/06/18 07/06/18 07/06/18 05:00 05:00 12:05 WBC 23.1 H RBC 2.50 L Hgb 7.3 L Hct 22.3 L MCHC RDW Plt Count 541 H Lymph % (Auto) [place] % (Auto) [place] # Baso # Seg Neutrophils % Seg Neuts % (Manual) Lymphocytes % (Manual) Monocytes % (Manual) Seg Neutrophils # Seg Neutrophils # Man Lymphocytes # (Manual) Monocytes # (Manual) PT INR APTT Heparin Anti-Xa Level 0.14 L POC ABG pH POC ABG pCO2 POC ABG pO2 Sodium Potassium Chloride 109.8 H Carbon Dioxide BUN 27 H Creatinine 0.2 L Glucose 157 H POC Glucose Calcium 7.7 L Phosphorus 1.60 L TIBC Total Bilirubin Direct Bilirubin Alkaline Phosphatase C-Reactive Protein NT-Pro-B Natriuret Pep Total Protein 4.5 L Albumin 1.7 L Prealbumin Lipase Vitamin B12 Folate Ur Specific [place] Vancomycin Trough Crossmatch 07/06/18 07/06/18 07/07/18 17:29 19:45 00:17 WBC RBC Hgb Hct MCHC RDW Plt Count Lymph % (Auto) [place] % (Auto) [place] # Baso # Seg Neutrophils % Seg Neuts % (Manual) Lymphocytes % (Manual) Monocytes % (Manual) Seg Neutrophils # Seg Neutrophils # Man Lymphocytes # (Manual) Monocytes # (Manual) PT INR APTT Heparin Anti-Xa Level 0.18 L POC ABG pH POC ABG pCO2 POC ABG pO2 Sodium Potassium Chloride Carbon Dioxide BUN Creatinine Glucose POC Glucose 141 H 143 H Calcium Phosphorus TIBC Total Bilirubin Direct Bilirubin Alkaline Phosphatase C-Reactive Protein NT-Pro-B Natriuret Pep Total Protein Albumin Prealbumin Lipase Vitamin B12 Folate Ur Specific [place] Vancomycin Trough Crossmatch 07/07/18 07/07/18 07/07/18 02:14 02:14 05:09 WBC RBC Hgb Hct MCHC RDW Plt Count Lymph % (Auto) [place] % (Auto) [place] # Baso # Seg Neutrophils % Seg Neuts % (Manual) Lymphocytes % (Manual) Monocytes % (Manual) Seg Neutrophils # Seg Neutrophils # Man Lymphocytes # (Manual) Monocytes # (Manual) PT INR APTT Heparin Anti-Xa Level < 0.10 L POC ABG pH POC ABG pCO2 POC ABG pO2 Sodium Potassium 3.4 L Chloride Carbon Dioxide BUN Creatinine < 0.2 L Glucose 127 H POC Glucose 126 H Calcium 7.6 L Phosphorus 2.10 L D TIBC Total Bilirubin Direct Bilirubin Alkaline Phosphatase C-Reactive Protein NT-Pro-B Natriuret Pep Total Protein Albumin Prealbumin Lipase Vitamin B12 Folate Ur Specific [place] Vancomycin Trough Crossmatch 07/07/18 07/07/18 07/07/18 07:08 10:57 11:50 WBC 19.3 H RBC 2.49 L Hgb 7.2 L Hct 22.2 L MCHC RDW Plt Count 517 H Lymph % (Auto) [place] % (Auto) [place] # Baso # Seg Neutrophils % Seg Neuts % (Manual) Lymphocytes % (Manual) Monocytes % (Manual) Seg Neutrophils # Seg Neutrophils # Man Lymphocytes # (Manual) Monocytes # (Manual) PT INR APTT Heparin Anti-Xa Level POC ABG pH POC ABG pCO2 POC ABG pO2 Sodium Potassium Chloride Carbon Dioxide BUN Creatinine Glucose POC Glucose 115 H Calcium Phosphorus TIBC 94 L Total Bilirubin Direct Bilirubin Alkaline Phosphatase C-Reactive Protein NT-Pro-B Natriuret Pep Total Protein Albumin Prealbumin Lipase Vitamin B12 Folate Ur Specific [place] Vancomycin Trough Crossmatch 07/07/18 07/07/18 07/07/18 11:50 11:50 15:20 WBC RBC Hgb Hct MCHC RDW Plt Count 489 H Lymph % (Auto) [place] % (Auto) [place] # Baso # Seg Neutrophils % Seg Neuts % (Manual) Lymphocytes % (Manual) Monocytes % (Manual) Seg Neutrophils # Seg Neutrophils # Man Lymphocytes # (Manual) Monocytes # (Manual) PT INR APTT Heparin Anti-Xa Level POC ABG pH POC ABG pCO2 POC ABG pO2 Sodium Potassium Chloride Carbon Dioxide BUN Creatinine Glucose POC Glucose Calcium Phosphorus TIBC Total Bilirubin Direct Bilirubin Alkaline Phosphatase C-Reactive Protein NT-Pro-B Natriuret Pep Total Protein Albumin Prealbumin Lipase Vitamin B12 924.8 H Folate 4.92 L Ur Specific [place] Vancomycin Trough Crossmatch 07/07/18 07/07/18 07/07/18 15:20 18:16 20:04 WBC RBC Hgb Hct MCHC RDW Plt Count Lymph % (Auto) [place] % (Auto) [place] # Baso # Seg Neutrophils % Seg Neuts % (Manual) Lymphocytes % (Manual) Monocytes % (Manual) Seg Neutrophils # Seg Neutrophils # Man Lymphocytes # (Manual) Monocytes # (Manual) PT 15.2 H INR APTT 42.2 H Heparin Anti-Xa Level < 0.10 L POC ABG pH POC ABG pCO2 POC ABG pO2 Sodium Potassium Chloride Carbon Dioxide BUN Creatinine Glucose POC Glucose 125 H Calcium Phosphorus TIBC Total Bilirubin Direct Bilirubin Alkaline Phosphatase C-Reactive Protein NT-Pro-B Natriuret Pep Total Protein Albumin Prealbumin Lipase Vitamin B12 Folate Ur Specific [place] Vancomycin Trough Crossmatch 07/08/18 07/08/18 07/08/18 01:07 03:40 03:40 WBC RBC Hgb Hct MCHC RDW Plt Count 477 H Lymph % (Auto) [place] % (Auto) [place] # Baso # Seg Neutrophils % Seg Neuts % (Manual) Lymphocytes % (Manual) Monocytes % (Manual) Seg Neutrophils # Seg Neutrophils # Man Lymphocytes # (Manual) Monocytes # (Manual) PT INR APTT Heparin Anti-Xa Level POC ABG pH POC ABG pCO2 POC ABG pO2 Sodium Potassium Chloride Carbon Dioxide BUN Creatinine < 0.2 L Glucose 161 H POC Glucose 132 H Calcium 7.9 L Phosphorus TIBC Total Bilirubin Direct Bilirubin Alkaline Phosphatase C-Reactive Protein NT-Pro-B Natriuret Pep Total Protein Albumin Prealbumin Lipase Vitamin B12 Folate Ur Specific [place] Vancomycin Trough Crossmatch 07/08/18 07/08/18 07/08/18 06:16 11:35 17:28 WBC RBC Hgb Hct MCHC RDW Plt Count Lymph % (Auto) [place] % (Auto) [place] # Baso # Seg Neutrophils % Seg Neuts % (Manual) Lymphocytes % (Manual) Monocytes % (Manual) Seg Neutrophils # Seg Neutrophils # Man Lymphocytes # (Manual) Monocytes # (Manual) PT INR APTT Heparin Anti-Xa Level POC ABG pH POC ABG pCO2 POC ABG pO2 Sodium Potassium Chloride Carbon Dioxide BUN Creatinine Glucose POC Glucose 143 H 154 H 136 H Calcium Phosphorus TIBC Total Bilirubin Direct Bilirubin Alkaline Phosphatase C-Reactive Protein NT-Pro-B Natriuret Pep Total Protein Albumin Prealbumin Lipase Vitamin B12 Folate Ur Specific [place] Vancomycin Trough Crossmatch 07/08/18 07/09/18 07/09/18 23:12 04:37 05:30 WBC RBC Hgb 8.6 L Hct 25.6 L D MCHC RDW Plt Count 445 H Lymph % (Auto) [place] % (Auto) [place] # Baso # Seg Neutrophils % Seg Neuts % (Manual) Lymphocytes % (Manual) Monocytes % (Manual) Seg Neutrophils # Seg Neutrophils # Man Lymphocytes # (Manual) Monocytes # (Manual) PT INR APTT Heparin Anti-Xa Level POC ABG pH POC ABG pCO2 46.9 H POC ABG pO2 120 H Sodium Potassium Chloride Carbon Dioxide BUN Creatinine Glucose POC Glucose 146 H Calcium Phosphorus TIBC Total Bilirubin Direct Bilirubin Alkaline Phosphatase C-Reactive Protein NT-Pro-B Natriuret Pep Total Protein Albumin Prealbumin Lipase Vitamin B12 Folate Ur Specific [place] Vancomycin Trough Crossmatch 07/09/18 07/09/18 07/09/18 05:30 05:34 23:41 WBC RBC Hgb Hct MCHC RDW Plt Count Lymph % (Auto) [place] % (Auto) [place] # Baso # Seg Neutrophils % Seg Neuts % (Manual) Lymphocytes % (Manual) Monocytes % (Manual) Seg Neutrophils # Seg Neutrophils # Man Lymphocytes # (Manual) Monocytes # (Manual) PT INR APTT Heparin Anti-Xa Level POC ABG pH POC ABG pCO2 POC ABG pO2 Sodium Potassium 3.3 L D Chloride Carbon Dioxide 33 H BUN Creatinine < 0.2 L Glucose 145 H POC Glucose 149 H 123 H Calcium 7.8 L Phosphorus 2.40 L TIBC Total Bilirubin Direct Bilirubin Alkaline Phosphatase C-Reactive Protein NT-Pro-B Natriuret Pep Total Protein Albumin Prealbumin Lipase Vitamin B12 Folate Ur Specific [place] Vancomycin Trough Crossmatch 07/10/18 07/10/18 07/10/18 04:32 05:45 05:50 WBC 12.4 H RBC 2.83 L Hgb 8.6 L Hct 24.8 L MCHC 35 H RDW 15.3 H Plt Count 477 H Lymph % (Auto) [place] % (Auto) [place] # Baso # Seg Neutrophils % Seg Neuts % (Manual) Lymphocytes % (Manual) Monocytes % (Manual) Seg Neutrophils # Seg Neutrophils # Man Lymphocytes # (Manual) Monocytes # (Manual) PT INR APTT Heparin Anti-Xa Level POC ABG pH POC ABG pCO2 48.5 H POC ABG pO2 Sodium Potassium Chloride Carbon Dioxide BUN Creatinine Glucose POC Glucose 124 H Calcium Phosphorus TIBC Total Bilirubin Direct Bilirubin Alkaline Phosphatase C-Reactive Protein NT-Pro-B Natriuret Pep Total Protein Albumin Prealbumin Lipase Vitamin B12 Folate Ur Specific [place] Vancomycin Trough Crossmatch 07/10/18 07/10/18 07/10/18 05:50 10:11 11:52 WBC RBC Hgb Hct MCHC RDW Plt Count Lymph % (Auto) [place] % (Auto) [place] # Baso # Seg Neutrophils % Seg Neuts % (Manual) Lymphocytes % (Manual) Monocytes % (Manual) Seg Neutrophils # Seg Neutrophils # Man Lymphocytes # (Manual) Monocytes # (Manual) PT INR APTT Heparin Anti-Xa Level < 0.10 L POC ABG pH POC ABG pCO2 POC ABG pO2 Sodium Potassium Chloride Carbon Dioxide BUN Creatinine < 0.2 L Glucose 131 H POC Glucose 126 H Calcium 8.3 L Phosphorus TIBC Total Bilirubin Direct Bilirubin Alkaline Phosphatase C-Reactive Protein NT-Pro-B Natriuret Pep Total Protein 4.8 L Albumin 1.9 L Prealbumin Lipase Vitamin B12 Folate Ur Specific [place] Vancomycin Trough Crossmatch 07/10/18 07/10/18 07/10/18 17:17 18:41 23:24 WBC RBC Hgb Hct MCHC RDW Plt Count Lymph % (Auto) [place] % (Auto) [place] # Baso # Seg Neutrophils % Seg Neuts % (Manual) Lymphocytes % (Manual) Monocytes % (Manual) Seg Neutrophils # Seg Neutrophils # Man Lymphocytes # (Manual) Monocytes # (Manual) PT INR APTT Heparin Anti-Xa Level POC ABG pH POC ABG pCO2 POC ABG pO2 Sodium Potassium Chloride Carbon Dioxide BUN Creatinine Glucose POC Glucose 155 H 134 H 175 H Calcium Phosphorus TIBC Total Bilirubin Direct Bilirubin Alkaline Phosphatase C-Reactive Protein NT-Pro-B Natriuret Pep Total Protein Albumin Prealbumin Lipase Vitamin B12 Folate Ur Specific [place] Vancomycin Trough Crossmatch 07/11/18 07/11/18 07/11/18 05:10 05:13 05:13 WBC 17.7 H RBC 3.19 L Hgb 9.4 L Hct 28.1 L MCHC RDW Plt Count 528 H Lymph % (Auto) [place] % (Auto) [place] # Baso # Seg Neutrophils % Seg Neuts % (Manual) 71.0 H Lymphocytes % (Manual) 10.0 L Monocytes % (Manual) 9.0 H Seg Neutrophils # Seg Neutrophils # Man 12.6 H Lymphocytes # (Manual) Monocytes # (Manual) 1.6 H PT INR APTT Heparin Anti-Xa Level 0.28 L POC ABG pH POC ABG pCO2 POC ABG pO2 Sodium Potassium Chloride Carbon Dioxide BUN Creatinine Glucose POC Glucose 135 H Calcium Phosphorus TIBC Total Bilirubin Direct Bilirubin Alkaline Phosphatase C-Reactive Protein NT-Pro-B Natriuret Pep Total Protein Albumin Prealbumin Lipase Vitamin B12 Folate Ur Specific [place] Vancomycin Trough Crossmatch 07/11/18 07/11/18 07/11/18 05:13 11:33 12:10 WBC RBC Hgb Hct MCHC RDW Plt Count Lymph % (Auto) [place] % (Auto) [place] # Baso # Seg Neutrophils % Seg Neuts % (Manual) Lymphocytes % (Manual) Monocytes % (Manual) Seg Neutrophils # Seg Neutrophils # Man Lymphocytes # (Manual) Monocytes # (Manual) PT INR APTT Heparin Anti-Xa Level < 0.10 L POC ABG pH POC ABG pCO2 POC ABG pO2 Sodium Potassium Chloride Carbon Dioxide BUN Creatinine < 0.2 L Glucose 137 H POC Glucose 153 H Calcium Phosphorus TIBC Total Bilirubin Direct Bilirubin Alkaline Phosphatase 149 H C-Reactive Protein NT-Pro-B Natriuret Pep Total Protein 5.5 L Albumin 2.5 L Prealbumin Lipase Vitamin B12 Folate Ur Specific [place] Vancomycin Trough Crossmatch 07/11/18 07/11/18 07/11/18 16:00 18:12 23:45 WBC RBC Hgb Hct MCHC RDW Plt Count Lymph % (Auto) [place] % (Auto) [place] # Baso # Seg Neutrophils % Seg Neuts % (Manual) Lymphocytes % (Manual) Monocytes % (Manual) Seg Neutrophils # Seg Neutrophils # Man Lymphocytes # (Manual) Monocytes # (Manual) PT 15.1 H INR APTT Heparin Anti-Xa Level POC ABG pH POC ABG pCO2 POC ABG pO2 Sodium Potassium Chloride Carbon Dioxide BUN Creatinine Glucose POC Glucose 146 H 149 H Calcium Phosphorus TIBC Total Bilirubin Direct Bilirubin Alkaline Phosphatase C-Reactive Protein NT-Pro-B Natriuret Pep Total Protein Albumin Prealbumin Lipase Vitamin B12 Folate Ur Specific [place] Vancomycin Trough Crossmatch 07/12/18 07/12/18 07/12/18 04:16 04:16 04:16 WBC RBC Hgb Hct MCHC RDW Plt Count 533 H Lymph % (Auto) [place] % (Auto) [place] # Baso # Seg Neutrophils % Seg Neuts % (Manual) Lymphocytes % (Manual) Monocytes % (Manual) Seg Neutrophils # Seg Neutrophils # Man Lymphocytes # (Manual) Monocytes # (Manual) PT 15.6 H INR 1.17 H APTT Heparin Anti-Xa Level POC ABG pH POC ABG pCO2 POC ABG pO2 Sodium Potassium 3.2 L Chloride Carbon Dioxide BUN Creatinine < 0.2 L Glucose 148 H POC Glucose Calcium Phosphorus TIBC Total Bilirubin Direct Bilirubin Alkaline Phosphatase 168 H C-Reactive Protein NT-Pro-B Natriuret Pep Total Protein 6.1 L Albumin 2.4 L Prealbumin Lipase Vitamin B12 Folate Ur Specific [place] Vancomycin Trough Crossmatch 07/12/18 07/12/18 07/12/18 05:19 11:37 22:49 WBC RBC Hgb Hct MCHC RDW Plt Count Lymph % (Auto) [place] % (Auto) [place] # Baso # Seg Neutrophils % Seg Neuts % (Manual) Lymphocytes % (Manual) Monocytes % (Manual) Seg Neutrophils # Seg Neutrophils # Man Lymphocytes # (Manual) Monocytes # (Manual) PT INR APTT Heparin Anti-Xa Level POC ABG pH POC ABG pCO2 POC ABG pO2 Sodium Potassium Chloride Carbon Dioxide BUN Creatinine Glucose POC Glucose 151 H 152 H 141 H Calcium Phosphorus TIBC Total Bilirubin Direct Bilirubin Alkaline Phosphatase C-Reactive Protein NT-Pro-B Natriuret Pep Total Protein Albumin Prealbumin Lipase Vitamin B12 Folate Ur Specific [place] Vancomycin Trough Crossmatch 07/13/18 07/13/1819 04:07 04:07 04:07 WBC RBC Hgb Hct MCHC RDW Plt Count 520 H Lymph % (Auto) [place] % (Auto) [place] # Baso # Seg Neutrophils % Seg Neuts % (Manual) Lymphocytes % (Manual) Monocytes % (Manual) Seg Neutrophils # Seg Neutrophils # Man Lymphocytes # (Manual) Monocytes # (Manual) PT 17.1 H INR 1.31 H APTT Heparin Anti-Xa Level POC ABG pH POC ABG pCO2 POC ABG pO2 Sodium Potassium 3.1 L Chloride Carbon Dioxide BUN Creatinine 0.2 L Glucose 110 H POC Glucose Calcium Phosphorus TIBC Total Bilirubin Direct Bilirubin Alkaline Phosphatase C-Reactive Protein NT-Pro-B Natriuret Pep Total Protein Albumin Prealbumin Lipase Vitamin B12 Folate Ur Specific [place] Vancomycin Trough Crossmatch 07/13/18 07/13/18 07/13/18 11:45 16:26 22:18 WBC RBC Hgb Hct MCHC RDW Plt Count Lymph % (Auto) [place] % (Auto) [place] # Baso # Seg Neutrophils % Seg Neuts % (Manual) Lymphocytes % (Manual) Monocytes % (Manual) Seg Neutrophils # Seg Neutrophils # Man Lymphocytes # (Manual) Monocytes # (Manual) PT INR APTT Heparin Anti-Xa Level POC ABG pH POC ABG pCO2 POC ABG pO2 Sodium Potassium Chloride Carbon Dioxide BUN Creatinine Glucose POC Glucose 137 H 129 H 133 H Calcium Phosphorus TIBC Total Bilirubin Direct Bilirubin Alkaline Phosphatase C-Reactive Protein NT-Pro-B Natriuret Pep Total Protein Albumin Prealbumin Lipase Vitamin B12 Folate Ur Specific [place] Vancomycin Trough Crossmatch 07/14/18 07/14/18 07/14/18 00:55 05:35 05:35 WBC 19.0 H RBC 3.22 L Hgb 9.5 L Hct 28.4 L MCHC RDW 15.5 H Plt Count 472 H Lymph % (Auto) 11.4 L [place] % (Auto) [place] # 1.2 H Baso # 0.2 H Seg Neutrophils % 80.8 H Seg Neuts % (Manual) Lymphocytes % (Manual) Monocytes % (Manual) Seg Neutrophils # 15.3 H Seg Neutrophils # Man Lymphocytes # (Manual) Monocytes # (Manual) PT 23.7 H INR 1.97 H APTT Heparin Anti-Xa Level POC ABG pH POC ABG pCO2 POC ABG pO2 Sodium Potassium Chloride Carbon Dioxide BUN Creatinine Glucose POC Glucose Calcium Phosphorus TIBC Total Bilirubin Direct Bilirubin Alkaline Phosphatase C-Reactive Protein NT-Pro-B Natriuret Pep Total Protein Albumin Prealbumin 0.185 L Lipase Vitamin B12 Folate Ur Specific [place] Vancomycin Trough Crossmatch 07/14/18 07/14/18 07/14/18 05:35 11:43 18:15 WBC RBC Hgb Hct MCHC RDW Plt Count Lymph % (Auto) [place] % (Auto) [place] # Baso # Seg Neutrophils % Seg Neuts % (Manual) Lymphocytes % (Manual) Monocytes % (Manual) Seg Neutrophils # Seg Neutrophils # Man Lymphocytes # (Manual) Monocytes # (Manual) PT INR APTT Heparin Anti-Xa Level POC ABG pH POC ABG pCO2 POC ABG pO2 Sodium Potassium Chloride Carbon Dioxide BUN 20 H Creatinine 0.2 L Glucose 114 H POC Glucose 128 H 123 H Calcium Phosphorus TIBC Total Bilirubin Direct Bilirubin Alkaline Phosphatase C-Reactive Protein NT-Pro-B Natriuret Pep Total Protein Albumin Prealbumin Lipase Vitamin B12 Folate Ur Specific [place] Vancomycin Trough Crossmatch 07/14/18 07/15/18 07/15/18 21:11 04:11 04:11 WBC 16.5 H RBC 3.19 L Hgb 9.5 L Hct 28.3 L MCHC RDW 15.4 H Plt Count 446 H Lymph % (Auto) 10.5 L [place] % (Auto) [place] # 0.9 H Baso # Seg Neutrophils % 82.8 H Seg Neuts % (Manual) Lymphocytes % (Manual) Monocytes % (Manual) Seg Neutrophils # 13.7 H Seg Neutrophils # Man Lymphocytes # (Manual) Monocytes # (Manual) PT 27.1 H INR 2.32 H APTT Heparin Anti-Xa Level POC ABG pH POC ABG pCO2 POC ABG pO2 Sodium Potassium Chloride Carbon Dioxide BUN Creatinine Glucose POC Glucose 131 H Calcium Phosphorus TIBC Total Bilirubin Direct Bilirubin Alkaline Phosphatase C-Reactive Protein NT-Pro-B Natriuret Pep Total Protein Albumin Prealbumin Lipase Vitamin B12 Folate Ur Specific [place] Vancomycin Trough Crossmatch 07/15/18 07/15/18 07/15/18 04:11 07:55 12:07 WBC RBC Hgb Hct MCHC RDW Plt Count Lymph % (Auto) [place] % (Auto) [place] # Baso # Seg Neutrophils % Seg Neuts % (Manual) Lymphocytes % (Manual) Monocytes % (Manual) Seg Neutrophils # Seg Neutrophils # Man Lymphocytes # (Manual) Monocytes # (Manual) PT INR APTT Heparin Anti-Xa Level POC ABG pH POC ABG pCO2 POC ABG pO2 Sodium Potassium Chloride Carbon Dioxide BUN 20 H Creatinine 0.2 L Glucose 146 H POC Glucose 128 H 132 H Calcium Phosphorus TIBC Total Bilirubin Direct Bilirubin Alkaline Phosphatase C-Reactive Protein NT-Pro-B Natriuret Pep Total Protein Albumin Prealbumin Lipase Vitamin B12 Folate Ur Specific [place] Vancomycin Trough Crossmatch 07/15/18 07/16/18 07/16/18 22:29 04:28 04:28 WBC RBC Hgb Hct MCHC RDW Plt Count Lymph % (Auto) [place] % (Auto) [place] # Baso # Seg Neutrophils % Seg Neuts % (Manual) Lymphocytes % (Manual) Monocytes % (Manual) Seg Neutrophils # Seg Neutrophils # Man Lymphocytes # (Manual) Monocytes # (Manual) PT 24.2 H INR 2.02 H APTT Heparin Anti-Xa Level POC ABG pH POC ABG pCO2 POC ABG pO2 Sodium 136 L Potassium Chloride Carbon Dioxide BUN 22 H Creatinine 0.2 L Glucose 131 H POC Glucose 130 H Calcium Phosphorus TIBC Total Bilirubin Direct Bilirubin Alkaline Phosphatase C-Reactive Protein NT-Pro-B Natriuret Pep Total Protein Albumin Prealbumin Lipase Vitamin B12 Folate Ur Specific [place] Vancomycin Trough Crossmatch 07/16/18 07/16/18 07/16/18 05:24 11:44 17:58 WBC RBC Hgb Hct MCHC RDW Plt Count Lymph % (Auto) [place] % (Auto) [place] # Baso # Seg Neutrophils % Seg Neuts % (Manual) Lymphocytes % (Manual) Monocytes % (Manual) Seg Neutrophils # Seg Neutrophils # Man Lymphocytes # (Manual) Monocytes # (Manual) PT INR APTT Heparin Anti-Xa Level POC ABG pH POC ABG pCO2 POC ABG pO2 Sodium Potassium Chloride Carbon Dioxide BUN Creatinine Glucose POC Glucose 138 H 110 H 161 H Calcium Phosphorus TIBC Total Bilirubin Direct Bilirubin Alkaline Phosphatase C-Reactive Protein NT-Pro-B Natriuret Pep Total Protein Albumin Prealbumin Lipase Vitamin B12 Folate Ur Specific [place] Vancomycin Trough Crossmatch 07/16/18 07/17/18 07/17/18 23:26 03:18 03:18 WBC RBC 3.03 L Hgb 9.1 L Hct 27.3 L MCHC RDW 16.5 H Plt Count Lymph % (Auto) [place] % (Auto) 7.6 H [place] # Baso # Seg Neutrophils % 76.6 H Seg Neuts % (Manual) Lymphocytes % (Manual) Monocytes % (Manual) Seg Neutrophils # 8.0 H Seg Neutrophils # Man Lymphocytes # (Manual) Monocytes # (Manual) PT 28.4 H INR 2.46 H APTT Heparin Anti-Xa Level POC ABG pH POC ABG pCO2 POC ABG pO2 Sodium Potassium Chloride Carbon Dioxide BUN Creatinine Glucose POC Glucose 143 H Calcium Phosphorus TIBC Total Bilirubin Direct Bilirubin Alkaline Phosphatase C-Reactive Protein NT-Pro-B Natriuret Pep Total Protein Albumin Prealbumin Lipase Vitamin B12 Folate Ur Specific [place] Vancomycin Trough Crossmatch 07/17/18 07/17/18 07/17/18 03:18 07:15 11:45 WBC RBC Hgb Hct MCHC RDW Plt Count Lymph % (Auto) [place] % (Auto) [place] # Baso # Seg Neutrophils % Seg Neuts % (Manual) Lymphocytes % (Manual) Monocytes % (Manual) Seg Neutrophils # Seg Neutrophils # Man Lymphocytes # (Manual) Monocytes # (Manual) PT INR APTT Heparin Anti-Xa Level POC ABG pH POC ABG pCO2 POC ABG pO2 Sodium Potassium Chloride Carbon Dioxide BUN 21 H Creatinine < 0.2 L Glucose 140 H POC Glucose 146 H 138 H Calcium Phosphorus TIBC Total Bilirubin Direct Bilirubin Alkaline Phosphatase 337 H C-Reactive Protein NT-Pro-B Natriuret Pep Total Protein 6.2 L Albumin 2.4 L Prealbumin Lipase Vitamin B12 Folate Ur Specific [place] Vancomycin Trough Crossmatch
[2018-07-17] MEDS: COUMADIN PO SCH (17:10)
--- NOTE | 2018-07-17 17:37 | Progress Note ---
Assessment and Plan Assessment and plan: 58 yr old female patient was admitted through ER with abd pain and found to have PSBO complicated by Bowel Perforation, SIRS, and severe malnutrition. Pt was evaluated by surgeon and underwent multiple surgical procedures as mentioned below. 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 --Acute SMA/SMV/distal aortic Thrombosis; vascular evaluated, on heparin drip and Coumadin INR 2.3, DCed heparin drip, closely monitor her INR target level between 2-3 Patient needs lifelong anticoagulation per vascular, --Hypokalemia; corrected, closely monitor electrolytes --Acute Mesenteric ischemia; with ischemic bowel/gangrene bowel Sigmoid diverticulitis with perforation of distal sigmoid colon Perforated viscus: Patient underwent multiple surgical procedures as mentioned below/management per surgery 1) Abdominal re-exploration and washout, cholecystectomy, primary closure of abdominal wall 07/10/18, POD 1 2) exploratory laparotomy, small bowel resection with primary anastamosis, right hemicolectomy with ileocolonic anastamosis,temporary closure of abdomen with abthera vac 07/07/18 - POD#5; 3) Exploratory laparotomy, small bowel resection, partial colon resection, temporary abdominal closure with abthera vac 07/04/18, POD7 ; and 4) Exploratory laparotomy, Ezequiel's procedure 06/24/18 Patient tolerating full liquid diet, advance diet per surgery, wean off TPN Physical therapy increase ambulation --Acute hypoxic respiratory failure;Requiring intubation , extubated Oxygen, titrate O2 sats to monitor 90%, evaluate for home oxygen --Acute exacerbation of COPD; symptoms significantly improved --Sepsis; s/p cefepime and fluconazole and Flagyl, Monitor off antibiotics ID following --Leukocytosis; secondary to sepsis, trending down --Severe malnutrition; nutrition consult, TPN --Ongoing tobacco use; smoking cessation, nicotine patch as needed --DVT prophylaxis; the patient is already on heparin drip --Physical therapy occupational therapy --Discharge planning. Case management and patient is stable Physical therapy occupational therapy Plan of care reviewed with the patient and her nurse and case management Possible discharge in 1-2 days if stable History Interval history: Patient seen and examine,medical records reviewed Feels better,tired after PT Tolerating GI soft diet Vital signs stable Hospitalist Physical - Constitutional Vitals: Temp Pulse Resp BP Pulse Ox 98.0 F 107 H 26 H 110/66 95 07/17/18 15:22 07/17/18 15:22 07/17/18 15:22 07/17/18 15:22 07/17/18 15:22 General appearance: Present: no acute distress, well-nourished - EENT Eyes: Present: PERRL, EOM intact - Neck Neck: Present: supple, normal ROM - Respiratory Respiratory effort: normal Respiratory: bilateral: diminished, negative: rales, rhonchi, wheezing - Cardiovascular Rhythm: regular Heart Sounds: Present: S1 & S2 - Extremities Extremities: no ischemia, No edema - Abdominal General gastrointestinal: soft, non-tender, non-distended, normal bowel sounds, other (ostomy in place) - Integumentary Integumentary: Present: clear, warm - Psychiatric Psychiatric: appropriate mood/affect, cooperative - Neurologic Neurologic: CNII-XII intact, moves all extremities Results - Labs CBC & Chem 7: 07/17/18 03:18 07/17/18 03:18 Labs: Laboratory Last Values WBC 10.5 K/mm3 (4.5-11.0) 07/17/18 03:18 RBC 3.03 M/mm3 (3.65-5.03) L 07/17/18 03:18 Hgb 9.1 gm/dl (10.1-14.3) L 07/17/18 03:18 Hct 27.3 % (30.3-42.9) L 07/17/18 03:18 MCV 90 fl (79-97) 07/17/18 03:18 MCH 30 pg (28-32) 07/17/18 03:18 MCHC 34 % (30-34) 07/17/18 03:18 RDW 16.5 % (13.2-15.2) H 07/17/18 03:18 Plt Count 408 K/mm3 (140-440) 07/17/18 03:18 Lymph % (Auto) 14.4 % (13.4-35.0) 07/17/18 03:18 [place] % (Auto) 7.6 % (0.0-7.3) H 07/17/18 03:18 Eos % (Auto) 1.1 % (0.0-4.3) 07/17/18 03:18 Baso % (Auto) 0.3 % (0.0-1.8) 07/17/18 03:18 Lymph # 1.5 K/mm3 (1.2-5.4) 07/17/18 03:18 [place] # 0.8 K/mm3 (0.0-0.8) 07/17/18 03:18 Eos # 0.1 K/mm3 (0.0-0.4) 07/17/18 03:18 Baso # 0.0 K/mm3 (0.0-0.1) 07/17/18 03:18 Add Manual Diff Complete 07/11/18 05:13 Total Counted 100 07/11/18 05:13 Seg Neutrophils % 76.6 % (40.0-70.0) H 07/17/18 03:18 Seg Neuts % (Manual) 71.0 % (40.0-70.0) H 07/11/18 05:13 10.0 % 07/11/18 05:13 10.0 % (13.4-35.0) L 07/11/18 05:13 Reactive Lymphs % (Man) 0 % 07/11/18 05:13 9.0 % (0.0-7.3) H 07/11/18 05:13 0 % (0.0-4.3) 07/11/18 05:13 0 % (0.0-1.8) 07/11/18 05:13 0 % 07/11/18 05:13 0 % 07/11/18 05:13 0 % 07/11/18 05:13 0 % 07/11/18 05:13 Nucleated RBC % Not Reportable 07/11/18 05:13 Seg Neutrophils # 8.0 K/mm3 (1.8-7.7) H 07/17/18 03:18 Seg Neutrophils # Man 12.6 K/mm3 (1.8-7.7) H 07/11/18 05:13 Band Neutrophils # 1.8 K/mm3 07/11/18 05:13 1.8 K/mm3 (1.2-5.4) 07/11/18 05:13 Abs React Lymphs (Man) 0.0 K/mm3 07/11/18 05:13 1.6 K/mm3 (0.0-0.8) H 07/11/18 05:13 0.0 K/mm3 (0.0-0.4) 07/11/18 05:13 0.0 K/mm3 (0.0-0.1) 07/11/18 05:13 0.0 K/mm3 07/11/18 05:13 0.0 K/mm3 07/11/18 05:13 0.0 K/mm3 07/11/18 05:13 Blast Cells # 0.0 K/mm3 07/11/18 05:13 WBC Morphology Not Reportable 07/11/18 05:13 Hypersegmented Neuts Not Reportable 07/11/18 05:13 Hyposegmented Neuts Not Reportable 07/11/18 05:13 Hypogranular Neuts Not Reportable 07/11/18 05:13 Not Reportable 07/11/18 05:13 Not Reportable 07/11/18 05:13 Not Reportable 07/11/18 05:13 Not Reportable 07/11/18 05:13 Not Reportable 07/11/18 05:13 Not Reportable 07/11/18 05:13 Appears increased 07/11/18 05:13 Not Reportable 07/11/18 05:13 Plt Clumps, EDTA Not Reportable 07/11/18 05:13 Not Reportable 07/11/18 05:13 Not Reportable 07/11/18 05:13 Not Reportable 07/11/18 05:13 Plt Morphology Comment Not Reportable 07/11/18 05:13 RBC Morphology Not Reportable 07/11/18 05:13 Dimorphic RBCs Not Reportable 07/11/18 05:13 1+ 07/11/18 05:13 Not Reportable 07/11/18 05:13 Not Reportable 07/11/18 05:13 1+ 07/11/18 05:13 Not Reportable 07/11/18 05:13 Not Reportable 07/11/18 05:13 Not Reportable 07/11/18 05:13 Not Reportable 07/11/18 05:13 Not Reportable 07/11/18 05:13 Rare 07/11/18 05:13 Not Reportable 07/11/18 05:13 Not Reportable 07/11/18 05:13 Few 07/11/18 05:13 Not Reportable 07/11/18 05:13 Not Reportable 07/11/18 05:13 Not Reportable 07/11/18 05:13 Not Reportable 07/11/18 05:13 Not Reportable 07/11/18 05:13 Not Reportable 07/11/18 05:13 Not Reportable 07/11/18 05:13 Acanthocytes (Spur) Not Reportable 07/11/18 05:13 Rouleaux Not Reportable 07/11/18 05:13 Not Reportable 07/11/18 05:13 Not Reportable 07/11/18 05:13 Not Reportable 07/11/18 05:13 Not Reportable 07/11/18 05:13 Hem Pathologist Commnt No 07/11/18 05:13 PT 28.4 Sec. (12.2-14.9) H 07/17/18 03:18 INR 2.46 (0.87-1.13) H 07/17/18 03:18 APTT 42.2 Sec. (24.2-36.6) H 07/07/18 15:20 Heparin Anti-Xa Level 0.42 U.I./ml (0.3-0.7) 07/14/18 21:32 POC ABG pH 7.431 (7.35-7.45) 07/10/18 04:32 POC ABG pCO2 48.5 (35-45) H 07/10/18 04:32 POC ABG pO2 104 (80-105) 07/10/18 04:32 POC ABG HCO3 32.2 (22-26 mml/L) 07/10/18 04:32 POC ABG Total CO2 34 (23-27mmol/L) 07/10/18 04:32 POC ABG O2 Sat 98 07/10/18 04:32 POC ABG Base Excess 8 ((-2) - (+3)mmol/L) 07/10/18 04:32 28 % 07/10/18 04:32 Sodium 140 mmol/L (137-145) 07/17/18 03:18 Potassium 4.1 mmol/L (3.6-5.0) 07/17/18 03:18 Chloride 105.2 mmol/L (98-107) 07/17/18 03:18 Carbon Dioxide 27 mmol/L (22-30) 07/17/18 03:18 12 mmol/L 07/17/18 03:18 BUN 21 mg/dL (7-17) H 07/17/18 03:18 < 0.2 mg/dL (0.7-1.2) L 07/17/18 03:18 Estimated GFR > 60 ml/min 07/17/18 03:18 105 % 07/17/18 03:18 Glucose 140 mg/dL (65-100) H 07/17/18 03:18 POC Glucose 135 (70-105) H 07/17/18 16:18 Lactic Acid 1.40 mmol/L (0.7-2.0) 07/04/18 21:11 Calcium 8.5 mg/dL (8.4-10.2) 07/17/18 03:18 Phosphorus 3.60 mg/dL (2.5-4.5) 07/16/18 04:28 Magnesium 2.10 mg/dL (1.7-2.3) 07/16/18 04:28 Iron 40 ug/dL (37-170) 07/07/18 11:50 TIBC 94 mcg/dL (250-450) L 07/07/18 11:50 377.8 ng/mL (13.0-400.0) 07/07/18 11:50 0.50 mg/dL (0.1-1.2) 07/17/18 03:18 < 0.2 mg/dL (0-0.2) 07/12/18 04:16 0.2 mg/dL 07/12/18 04:16 AST 31 units/L (5-40) 07/17/18 03:18 ALT 48 units/L (7-56) 07/17/18 03:18 337 units/L (35-129) H 07/17/18 03:18 13.20 mg/dL (0.00-1.30) H 07/03/18 11:07 NT-Pro-B Natriuret Pep 1572 pg/mL (0-900) H 06/28/18 09:56 6.2 g/dL (6.3-8.2) L 07/17/18 03:18 2.4 g/dL (3.9-5) L 07/17/18 03:18 0.6 % 07/17/18 03:18 0.185 g/L (0.200-0.400) L 07/14/18 05:35 Triglycerides 127 mg/dL (2-149) 07/07/18 02:14 8 units/L (13-60) L 06/24/18 11:19 Vitamin B12 924.8 pg/mL (211-911) H 07/07/18 11:50 4.92 ng/mL (7.3-26.0) L 07/07/18 11:50 Na (Yellow) 07/03/18 Unknown Hazy (Clear) 07/03/18 Unknown 6.0 (5.0-7.0) 07/03/18 Unknown Ur Specific Protection 1.023 (1.003-1.030) 07/03/18 Unknown <15 mg/dl mg/dL (Negative) 07/03/18 Unknown Neg mg/dL (Negative) 07/03/18 Unknown Neg mg/dL (Negative) 07/03/18 Unknown Sm (Negative) 07/03/18 Unknown Neg (Negative) 07/03/18 Unknown Neg (Negative) 07/03/18 Unknown < 2.0 mg/dL (<2.0) 07/03/18 Unknown Ur Leukocyte Esterase Neg (Negative) 07/03/18 Unknown 1.0 /HPF (0.0-6.0) 07/03/18 Unknown 3.0 /HPF (0.0-6.0) 07/03/18 Unknown U Epithel Cells (Auto) 7.0 /HPF (0-13.0) 07/03/18 Unknown 1+ /HPF (Negative) 06/24/18 13:00 Few /HPF 07/03/18 Unknown Vancomycin Trough 38.9 ug/mL (5.0-20.0) H 07/05/18 10:57 Blood Type O POSITIVE 07/04/18 17:54 Antibody Screen TNR 07/04/18 17:54 FADY Antibody Screen Negative 07/04/18 17:54 Crossmatch See Detail 07/04/18 17:54 Crossmatch See Detail 07/04/18 17:54 Active Medications - Current Medications Current Medications: Generic Name Dose Route Start Last Admin Trade Name Freq PRN Reason Stop Dose Admin Albuterol 2.5 mg 07/02/18 07:44 Proventil IH Q4HRT PRN Shortness Of Breath Arformoterol Tartrate 15 mcg 07/12/18 20:00 07/17/18 08:17 Brovana Nebu IH 15 mcg Q12HRT PENDING SALE TO [facility] Administration Budesonide 0.5 mg 07/02/18 20:00 07/17/18 08:17 Pulmicort IH 0.5 mg Q12HRT PENDING SALE TO [facility] Administration Famotidine 20 mg 07/11/18 10:00 07/17/18 10:00 Pepcid IV 20 mg BID PENDING SALE TO [facility] Administration Hydromorphone HCl 1 mg 07/11/18 11:11 07/17/18 15:45 Dilaudid IV 1 mg Q4H PRN Administration Pain , Severe (7-10) Hydrophilic Ointment 1 applic 07/04/18 18:23 Vaseline Lip Therapy TP Q2HR PRN Dry Lips Amino Acids/Electrolytes/Dextrose 1,800 mls @ 75 mls/hr 07/16/18 20:00 07/16/18 20:15 Tpn Adult IV 07/17/18 19:59 75 mls/hr DAILY@2000 PENDING SALE TO [facility] Administration Protocol Metoprolol Tartrate 12.5 mg 07/14/18 22:00 07/17/18 09:59 Lopressor PO 12.5 mg BID PENDING SALE TO [facility] Administration Multi-Ingred Cream/Lotion/Oil/Oint 1 applic 07/04/18 18:23 Artificial Tears Ophth Oint OU Q4HR PRN Dry Eye(s) Naloxone HCl 0.1 mg 06/24/18 18:55 Narcan 0.4 Mg/1 Ml IV Q2MIN PRN Res Rate </= 8 or 02 SAT < 92% Nicotine 14 mg 06/25/18 10:00 07/17/18 09:59 Habitrol TD Not Given QDAY PENDING SALE TO [facility] Ondansetron HCl 4 mg 06/24/18 14:00 07/17/18 02:01 Zofran IV 4 mg Q8H PRN Administration Nausea And Vomiting Simethicone 80 mg 07/15/18 19:25 07/16/18 21:10 Mylicon PO 80 mg Q6H PRN Administration Gas pain Sodium Chloride 10 ml 06/24/18 22:00 07/17/18 11:21 Sodium Chloride Flush Syringe 10 Ml IV 10 ml BID MAURICIO Administration Sodium Chloride 10 ml 06/24/18 14:00 07/17/18 10:00 Sodium Chloride Flush Syringe 10 Ml IV 10 ml PRN PRN Administration LINE FLUSH Warfarin Sodium 2.5 mg 07/14/18 17:00 07/17/18 17:10 Coumadin PO 2.5 mg DAILY@1700 MAURICIO Administration Zolpidem Tartrate 5 mg 07/15/18 19:25 07/16/18 23:06 Ambien PO 5 mg QHS PRN Administration Sleep Nutrition/Malnutrition Assess - Dietary Evaluation Nutrition/Malnutrition Findings: Nutrition Notes Start: 06/30/18 16:45 Freq: Status: Active Protocol: Document 07/17/18 12:39 JANICE (Rec: 07/17/18 12:44 JANICE [email or web address]) Nutrition Notes Initial or Follow up Reassessment Other Pertinent Diagnosis Perforated viscus s/p exp lap Current Diet CPN at 75ml/hr + GI soft + Ensure Enlive BID Labs/Tests Reviewed Pertinent Medications Reviewed Height 5 ft 3 in Weight 52.3 kg [place] Body Weight (kg) 52.27 BMI 20.4 Subjective/Other Information Pt reports good appetite and drinks ONS. Per surgeon, ok to D/C TPN. RN informed to decrease TPN rate by 50% for two hrs, then D/C. Burn Absent Trauma Absent #2 Nutrition Diagnosis Inadequate oral intake As Evidenced by Signs and Symptoms pt eating ~50% of meals and drinking ONS Diagnosis Progress(for reassessment Improved documentation) #1 Nutrition Diagnosis Increased nutrient needs ( specify in comment below) Diagnosis Progress(for reassessment Continues documentation) Is patient on ventilator? No Is Patient Ambulatory and/or Out of Bed Yes REE[facility]OO[facility]) [ 1393.769 NUTR.[id number]] Kcal/Kg value to use for calculation 30 Approximate Energy Requirements Using 1569 kcal/Kg Calculation Used for Recommendations Kcal/kg Additional Notes Pro needs 1.25-1.5g/k-78g /day Fluid needs 1ml/kcal Nutrition Intervention Change Diet Order: Continue GI soft diet Nutrition Support: D/C TPN Add Supplement/Snack (indicate name/kcal Ensure Enlive BID /protein ) Provides kCal: 700 Provides Protein (gm) 40 Goal #1 PO intake of meals plus ONS to meet at least 75% energy and pro needs Anticipated Discharge Needs: Continue Ensure Enlive 1-2 times daily Follow-Up By: 07/21/18 Additional Comments F/U: intakes, wt
[2018-07-17] MEDS: AMBIEN PO PRN (23:03)
[2018-07-17] MEDS: MYLICON PO PRN (23:03)
[2018-07-18] MEDS: DILAUDID IV PRN ×5 (00:54→17:56)
[2018-07-18] MEDS: BROVANA NEBU IH SCH ×2 (09:18→20:08)
[2018-07-18] MEDS: PULMICORT IH SCH ×2 (09:18→20:08)
[2018-07-18] MEDS: PEPCID IV SCH (09:23)
--- NOTE | 2018-07-18 09:25 | Progress Note ---
Assessment and Plan Assessment and plan: Patient is 58 yo female with Nicotine Dependence, Severe Malnutrition present to ED for evaluation. Patient presented with abdominal pain for 1 week progressively worsening symptoms over the same time frame. Pt states that her abdominal pain is 10/10, generalized, nonradiating, constant, worsened with movement. Pt denies NVD, ingestion of food/water from new or different sources, BRBPR, skin rash, or recent ill contacts. She was seen and evaluated in ED and found to have PSBO complicated by Bowel Perforation, SIRS, and severe malnutrition. Pt admitted to surgical floor. Surgery consulted in ED. Patient was taken to OR urgently. She had exploratory lap. surgeon found Sigmoid diverticulitis with perforation of distal sigmoid colon, purulent peritonitis. Peritoneal lavage and Posey's procedure was done on 06/24. Post-op was doing well, but on 06/28 developed acute resp failure was put on PBIPAP, transferred to ICU. Pulmonology consulted. she was given lasix, she improved BIPAP, discontinue d, placed on HFNC Oxygen and now on oxygen by RI. 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 Patient was also noted to have right lower quadrant not appear viable. And was taken back for exploratory laparotomy. * s/p Exploratory laparotomy, small bowel resection, partial colon resection, temporary abdominal closure with abthera vac 07/04/18, POD 1 and * Exploratory laparotomy, Ezequiel's procedure 06/24/18 * Continues on full ventilatory support * IV heparin infusion, * Plan is to repeat scan in am and possible return to OR for evaluation of remaining bowel * PICC line placed for TPN. * Discussed extensively with patients brother, Sisters and Significant other. 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 Acute hypoxic respiratory failure -RESOLVED Severe enterocolitis Purulent peritonitis Sigmoid diverticulitis with perforation of distal sigmoid colon hypokalemia, severe hyponatremia Secondary Coagulopathy Severe Moderate malnutrition Nicotine dependence Sepsis- On Cefepime, Fluconazole,flagyl leukocytosis, worsening, WBC 48.6 today Acute Mesenteric ischemia; with ischemic bowel/gangrene bowel Acute hypoxic respiratory failure;Requiring intubation , extubated Acute exacerbation of COPD Sepsis Plan INR > 4 today, Adjust warfarin by Pharamcy pain control per Surgery Imodium po bid Continues to make good improvement Continue aggressive PT/OT Wean oxygen Pulmonary toliet. Tolerating Diet ID/SURGICAL INPUT NOTED Discussed with Surgery extensively DVT/GI prophy History Interval history: Patient' seen and examined Doing well on the floor in no acute distress Hospitalist Physical - Physical exam Narrative exam: VITAL SIGNS: Reviewed. GENERAL: The patient appeared well nourished and normally developed, Vital signs as documented. HEAD: No signs of head trauma. EYES: Pupils are equal. Extraocular motions intact. EARS: Hearing grossly intact. MOUTH: Oropharynx is normal. NECK: No adenopathy, no JVD. CHEST: Chest with clear breath sounds bilaterally. No wheezes, rales, or rhonchi. CARDIAC: Regular rate and rhythm. S1 and S2, without murmurs, gallops, or rubs. VASCULAR: No Edema. Peripheral pulses normal and equal in all extremities. ABDOMEN: abdominal incision intact. Soft, non tender and non distended. No rebound or guarding, and no masses palpated. colostomy noted. High output. Hypoactive BS normal. MUSCULOSKELETAL: Good range of motion of all major joints. Extremities without clubbing, cyanosis or edema. NEUROLOGIC EXAM: Alert and oriented x 3 No focal sensory or strength deficits. Speech normal. Follows commands. PSYCHIATRIC: Mood normal. SKIN: colostomy pouch noted - Constitutional Vitals: Temp Pulse Resp BP Pulse Ox 98.4 F 102 H 18 94/55 97 07/18/18 05:22 07/18/18 05:22 07/18/18 05:22 07/18/18 05:22 07/18/18 09:20 General appearance: Present: no acute distress, well-nourished Results - Labs CBC & Chem 7: 07/17/18 03:18 07/17/18 03:18 Labs: Laboratory Last Values WBC 10.5 K/mm3 (4.5-11.0) 07/17/18 03:18 RBC 3.03 M/mm3 (3.65-5.03) L 07/17/18 03:18 Hgb 9.1 gm/dl (10.1-14.3) L 07/17/18 03:18 Hct 27.3 % (30.3-42.9) L 07/17/18 03:18 MCV 90 fl (79-97) 07/17/18 03:18 MCH 30 pg (28-32) 07/17/18 03:18 MCHC 34 % (30-34) 07/17/18 03:18 RDW 16.5 % (13.2-15.2) H 07/17/18 03:18 Plt Count 408 K/mm3 (140-440) 07/17/18 03:18 Lymph % (Auto) 14.4 % (13.4-35.0) 07/17/18 03:18 [place] % (Auto) 7.6 % (0.0-7.3) H 07/17/18 03:18 Eos % (Auto) 1.1 % (0.0-4.3) 07/17/18 03:18 Baso % (Auto) 0.3 % (0.0-1.8) 07/17/18 03:18 Lymph # 1.5 K/mm3 (1.2-5.4) 07/17/18 03:18 [place] # 0.8 K/mm3 (0.0-0.8) 07/17/18 03:18 Eos # 0.1 K/mm3 (0.0-0.4) 07/17/18 03:18 Baso # 0.0 K/mm3 (0.0-0.1) 07/17/18 03:18 Add Manual Diff Complete 07/11/18 05:13 Total Counted 100 07/11/18 05:13 Seg Neutrophils % 76.6 % (40.0-70.0) H 07/17/18 03:18 Seg Neuts % (Manual) 71.0 % (40.0-70.0) H 07/11/18 05:13 10.0 % 07/11/18 05:13 10.0 % (13.4-35.0) L 07/11/18 05:13 Reactive Lymphs % (Man) 0 % 07/11/18 05:13 9.0 % (0.0-7.3) H 07/11/18 05:13 0 % (0.0-4.3) 07/11/18 05:13 0 % (0.0-1.8) 07/11/18 05:13 0 % 07/11/18 05:13 0 % 07/11/18 05:13 0 % 07/11/18 05:13 0 % 07/11/18 05:13 Nucleated RBC % Not Reportable 07/11/18 05:13 Seg Neutrophils # 8.0 K/mm3 (1.8-7.7) H 07/17/18 03:18 Seg Neutrophils # Man 12.6 K/mm3 (1.8-7.7) H 07/11/18 05:13 Band Neutrophils # 1.8 K/mm3 07/11/18 05:13 1.8 K/mm3 (1.2-5.4) 07/11/18 05:13 Abs React Lymphs (Man) 0.0 K/mm3 07/11/18 05:13 1.6 K/mm3 (0.0-0.8) H 07/11/18 05:13 0.0 K/mm3 (0.0-0.4) 07/11/18 05:13 0.0 K/mm3 (0.0-0.1) 07/11/18 05:13 0.0 K/mm3 07/11/18 05:13 0.0 K/mm3 07/11/18 05:13 0.0 K/mm3 07/11/18 05:13 Blast Cells # 0.0 K/mm3 07/11/18 05:13 WBC Morphology Not Reportable 07/11/18 05:13 Hypersegmented Neuts Not Reportable 07/11/18 05:13 Hyposegmented Neuts Not Reportable 07/11/18 05:13 Hypogranular Neuts Not Reportable 07/11/18 05:13 Not Reportable 07/11/18 05:13 Not Reportable 07/11/18 05:13 Not Reportable 07/11/18 05:13 Not Reportable 07/11/18 05:13 Not Reportable 07/11/18 05:13 Not Reportable 07/11/18 05:13 Appears increased 07/11/18 05:13 Not Reportable 07/11/18 05:13 Plt Clumps, EDTA Not Reportable 07/11/18 05:13 Not Reportable 07/11/18 05:13 Not Reportable 07/11/18 05:13 Not Reportable 07/11/18 05:13 Plt Morphology Comment Not Reportable 07/11/18 05:13 RBC Morphology Not Reportable 07/11/18 05:13 Dimorphic RBCs Not Reportable 07/11/18 05:13 1+ 07/11/18 05:13 Not Reportable 07/11/18 05:13 Not Reportable 07/11/18 05:13 1+ 07/11/18 05:13 Not Reportable 07/11/18 05:13 Not Reportable 07/11/18 05:13 Not Reportable 07/11/18 05:13 Not Reportable 07/11/18 05:13 Not Reportable 07/11/18 05:13 Rare 07/11/18 05:13 Not Reportable 07/11/18 05:13 Not Reportable 07/11/18 05:13 Few 07/11/18 05:13 Not Reportable 07/11/18 05:13 Not Reportable 07/11/18 05:13 Not Reportable 07/11/18 05:13 Not Reportable 07/11/18 05:13 Not Reportable 07/11/18 05:13 Not Reportable 07/11/18 05:13 Not Reportable 07/11/18 05:13 Acanthocytes (Spur) Not Reportable 07/11/18 05:13 Rouleaux Not Reportable 07/11/18 05:13 Not Reportable 07/11/18 05:13 Not Reportable 07/11/18 05:13 Not Reportable 07/11/18 05:13 Not Reportable 07/11/18 05:13 Hem Pathologist Commnt No 07/11/18 05:13 PT 28.4 Sec. (12.2-14.9) H 07/17/18 03:18 INR 2.46 (0.87-1.13) H 07/17/18 03:18 APTT 42.2 Sec. (24.2-36.6) H 07/07/18 15:20 Heparin Anti-Xa Level 0.42 U.I./ml (0.3-0.7) 07/14/18 21:32 POC ABG pH 7.431 (7.35-7.45) 07/10/18 04:32 POC ABG pCO2 48.5 (35-45) H 07/10/18 04:32 POC ABG pO2 104 (80-105) 07/10/18 04:32 POC ABG HCO3 32.2 (22-26 mml/L) 07/10/18 04:32 POC ABG Total CO2 34 (23-27mmol/L) 07/10/18 04:32 POC ABG O2 Sat 98 07/10/18 04:32 POC ABG Base Excess 8 ((-2) - (+3)mmol/L) 07/10/18 04:32 28 % 07/10/18 04:32 Sodium 140 mmol/L (137-145) 07/17/18 03:18 Potassium 4.1 mmol/L (3.6-5.0) 07/17/18 03:18 Chloride 105.2 mmol/L (98-107) 07/17/18 03:18 Carbon Dioxide 27 mmol/L (22-30) 07/17/18 03:18 12 mmol/L 07/17/18 03:18 BUN 21 mg/dL (7-17) H 07/17/18 03:18 < 0.2 mg/dL (0.7-1.2) L 07/17/18 03:18 Estimated GFR > 60 ml/min 07/17/18 03:18 105 % 07/17/18 03:18 Glucose 140 mg/dL (65-100) H 07/17/18 03:18 POC Glucose 135 (70-105) H 07/17/18 16:18 Lactic Acid 1.40 mmol/L (0.7-2.0) 07/04/18 21:11 Calcium 8.5 mg/dL (8.4-10.2) 07/17/18 03:18 Phosphorus 3.60 mg/dL (2.5-4.5) 07/16/18 04:28 Magnesium 2.10 mg/dL (1.7-2.3) 07/16/18 04:28 Iron 40 ug/dL (37-170) 07/07/18 11:50 TIBC 94 mcg/dL (250-450) L 07/07/18 11:50 377.8 ng/mL (13.0-400.0) 07/07/18 11:50 0.50 mg/dL (0.1-1.2) 07/17/18 03:18 < 0.2 mg/dL (0-0.2) 07/12/18 04:16 0.2 mg/dL 07/12/18 04:16 AST 31 units/L (5-40) 07/17/18 03:18 ALT 48 units/L (7-56) 07/17/18 03:18 337 units/L (35-129) H 07/17/18 03:18 13.20 mg/dL (0.00-1.30) H 07/03/18 11:07 NT-Pro-B Natriuret Pep 1572 pg/mL (0-900) H 06/28/18 09:56 6.2 g/dL (6.3-8.2) L 07/17/18 03:18 2.4 g/dL (3.9-5) L 07/17/18 03:18 0.6 % 07/17/18 03:18 0.185 g/L (0.200-0.400) L 07/14/18 05:35 Triglycerides 127 mg/dL (2-149) 07/07/18 02:14 8 units/L (13-60) L 06/24/18 11:19 Vitamin B12 924.8 pg/mL (211-911) H 07/07/18 11:50 4.92 ng/mL (7.3-26.0) L 07/07/18 11:50 Na (Yellow) 07/03/18 Unknown Hazy (Clear) 07/03/18 Unknown 6.0 (5.0-7.0) 07/03/18 Unknown Ur Specific [place] 1.023 (1.003-1.030) 07/03/18 Unknown <15 mg/dl mg/dL (Negative) 07/03/18 Unknown Neg mg/dL (Negative) 07/03/18 Unknown Neg mg/dL (Negative) 07/03/18 Unknown Sm (Negative) 07/03/18 Unknown Neg (Negative) 07/03/18 Unknown Neg (Negative) 07/03/18 Unknown < 2.0 mg/dL (<2.0) 07/03/18 Unknown Ur Leukocyte Esterase Neg (Negative) 07/03/18 Unknown 1.0 /HPF (0.0-6.0) 07/03/18 Unknown 3.0 /HPF (0.0-6.0) 07/03/18 Unknown U Epithel Cells (Auto) 7.0 /HPF (0-13.0) 07/03/18 Unknown 1+ /HPF (Negative) 06/24/18 13:00 Few /HPF 07/03/18 Unknown Vancomycin Trough 38.9 ug/mL (5.0-20.0) H 07/05/18 10:57 Blood Type O POSITIVE 07/04/18 17:54 Antibody Screen TNR 07/04/18 17:54 FADY Antibody Screen Negative 07/04/18 17:54 Crossmatch See Detail 07/04/18 17:54 Crossmatch See Detail 07/04/18 17:54 Active Medications - Current Medications Current Medications: Generic Name Dose Route Start Last Admin Trade Name Freq PRN Reason Stop Dose Admin Albuterol 2.5 mg 07/02/18 07:44 Proventil IH Q4HRT PRN Shortness Of Breath Arformoterol Tartrate 15 mcg 07/12/18 20:00 07/18/18 09:18 Brovana Nebu IH 15 mcg Q12HRT MAURICIO Administration Budesonide 0.5 mg 07/02/18 20:00 07/18/18 09:18 Pulmicort IH 0.5 mg Q12HRT MAURICIO Administration Famotidine 20 mg 07/11/18 10:00 07/17/18 21:29 Pepcid IV 20 mg BID MAURICIO Administration Hydromorphone HCl 1 mg 07/11/18 11:11 07/18/18 05:09 Dilaudid IV 1 mg Q4H PRN Administration Pain , Severe (7-10) Hydrophilic Ointment 1 applic 07/04/18 18:23 Vaseline Lip Therapy TP Q2HR PRN Dry Lips Metoprolol Tartrate 12.5 mg 07/14/18 22:00 07/17/18 21:29 Lopressor PO 12.5 mg BID MAURICIO Administration Multi-Ingred Cream/Lotion/Oil/Oint 1 applic 07/04/18 18:23 Artificial Tears Ophth Oint OU Q4HR PRN Dry Eye(s) Naloxone HCl 0.1 mg 06/24/18 18:55 Narcan 0.4 Mg/1 Ml IV Q2MIN PRN Res Rate </= 8 or 02 SAT < 92% Nicotine 14 mg 06/25/18 10:00 07/17/18 09:59 Habitrol TD Not Given QDAY MAURICIO Ondansetron HCl 4 mg 06/24/18 14:00 07/17/18 02:01 Zofran IV 4 mg Q8H PRN Administration Nausea And Vomiting Simethicone 80 mg 07/15/18 19:25 07/17/18 23:03 Mylicon PO 80 mg Q6H PRN Administration Gas pain Sodium Chloride 10 ml 06/24/18 22:00 07/17/18 23:03 Sodium Chloride Flush Syringe 10 Ml IV 10 ml BID MAURICIO Administration Sodium Chloride 10 ml 06/24/18 14:00 07/17/18 10:00 Sodium Chloride Flush Syringe 10 Ml IV 10 ml PRN PRN Administration LINE FLUSH Warfarin Sodium 2.5 mg 07/14/18 17:00 07/17/18 17:10 Coumadin PO 2.5 mg DAILY@1700 MAURICIO Administration Zolpidem Tartrate 5 mg 07/15/18 19:25 07/17/18 23:03 Ambien PO 5 mg QHS PRN Administration Sleep Nutrition/Malnutrition Assess - Dietary Evaluation Nutrition/Malnutrition Findings: Nutrition Notes Start: 06/30/18 16:45 Freq: Status: Active Protocol: Document 07/17/18 12:39 JANICE (Rec: 07/17/18 12:44 JANICE [email or web address]) Nutrition Notes Initial or Follow up Reassessment Other Pertinent Diagnosis Perforated viscus s/p exp lap Current Diet CPN at 75ml/hr + GI soft + Ensure Enlive BID Labs/Tests Reviewed Pertinent Medications Reviewed Height 5 ft 3 in Weight 52.3 kg [place] Body Weight (kg) 52.27 BMI 20.4 Subjective/Other Information Pt reports good appetite and drinks ONS. Per surgeon, ok to D/C TPN. RN informed to decrease TPN rate by 50% for two hrs, then D/C. Burn Absent Trauma Absent #2 Nutrition Diagnosis Inadequate oral intake As Evidenced by Signs and Symptoms pt eating ~50% of meals and drinking ONS Diagnosis Progress(for reassessment Improved documentation) #1 Nutrition Diagnosis Increased nutrient needs ( specify in comment below) Diagnosis Progress(for reassessment Continues documentation) Is patient on ventilator? No Is Patient Ambulatory and/or Out of Bed Yes REE-([facility]-ambulatory/OOB) [ 1393.769 [id number]] Kcal/Kg value to use for calculation 30 Approximate Energy Requirements Using 1569 kcal/Kg Calculation Used for Recommendations Kcal/kg Additional Notes Pro needs 1.25-1.5g/k-78g /day Fluid needs 1ml/kcal Nutrition Intervention Change Diet Order: Continue GI soft diet Nutrition Support: D/C TPN Add Supplement/Snack (indicate name/kcal Ensure Enlive BID /protein ) Provides kCal: 700 Provides Protein (gm) 40 Goal #1 PO intake of meals plus ONS to meet at least 75% energy and pro needs Anticipated Discharge Needs: Continue Ensure Enlive 1-2 times daily Follow-Up By: 07/21/18 Additional Comments F/U: intakes, wt
[2018-07-18] MEDS: LOPRESSOR PO SCH (10:14)
[2018-07-18 11:09] LABS: INR 2.82 (0.87-1.13)
[2018-07-18] MEDS: HABITROL TD SCH (13:13)
[2018-07-18] MEDS: SODIUM CHLORIDE FLUSH SYRINGE 10 ML IV SCH (13:13)
[2018-07-18] MEDS ORDERED: COUMADIN PO SCH (17:00)
--- NOTE | 2018-07-18 17:08 | Progress Note ---
Assessment and Plan (1) Perforated viscus Current Visit: Yes Status: Acute Plan to address problem: 58 yo F s/p 1) Abdominal re-exploration and washout, cholecystectomy, primary closure of abdominal wall 07/10/18, POD 8 2) exploratory laparotomy, small bowel resection with primary anastamosis, right hemicolectomy with ileocolonic anastamosis, temporary closure of abdomen with abthera vac 07/07/18 3) Exploratory laparotomy, small bowel resection, partial colon resection, temporary abdominal closure with abthera vac 07/04/18; and 4) Exploratory laparotomy, Ezequiel's procedure 06/24/18 Problem list: 1. 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 Respiratory failure 5. COPD Plan: 1. Diet as tolerated 2. prn PO pain control 3. incentive spirometry/pulm toilet 4. abx per ID 5. GI ppx 6. continue OOB/PT 7. will add imodium and may start banana flakes as outpatient to help thicken stool 8. discharge planning. Please call with questions. Subjective Date of service: 07/18/18 Narrative: Pt seen and examined. States she feels very well. She tolerated her gi soft diet today. No n/v, abdominal pain, f/c. She is off oxygen. She has ambulated around her bed and to the chair. Objective Vital Signs - 12hr 07/18/18 07/18/18 07/18/18 05:22 08:00 09:20 Temperature 98.4 F 98.5 F Pulse Rate 102 H 108 H Pulse Rate [ Anterior Bilateral Throughout] Pulse Rate [ Posterior] Respiratory 18 18 Rate Respiratory Rate [Anterior Bilateral Throughout] Respiratory Rate [Posterior ] Blood Pressure Blood Pressure 94/55 101/66 [Left] O2 Sat by Pulse 97 97 97 Oximetry 07/18/18 07/18/18 09:21 15:15 Temperature 98.0 F Pulse Rate 122 H Pulse Rate [ 100 H Anterior Bilateral Throughout] Pulse Rate [ 103 H Posterior] Respiratory 20 Rate Respiratory 18 Rate [Anterior Bilateral Throughout] Respiratory 18 Rate [Posterior ] Blood Pressure 120/67 Blood Pressure [Left] O2 Sat by Pulse 94 Oximetry - General physical appearance Narrative Exam: Gen: AAOx3. NAD CV: s1, S2+ resp; even and unlabored Abd: soft, NT, ND. incision c/d/i. Ostomy pink with loose brown stool in bag Ext: no c/c/e - Labs 07/17/18 03:18 07/17/18 03:18
[2018-07-18] MEDS: MYLICON PO PRN (17:55)
[2018-07-18] MEDS: IMODIUM PO SCH (17:57)
[2018-07-19] MEDS: LOPRESSOR PO SCH ×3 (03:31→21:42)
[2018-07-19] MEDS: PEPCID IV SCH ×3 (03:34→21:50)
[2018-07-19] MEDS: DILAUDID IV PRN (05:44)
[2018-07-19 05:53] LABS: INR 4.35 (0.87-1.13)
[2018-07-19] MEDS: PULMICORT IH SCH ×2 (08:03→20:07)
[2018-07-19] MEDS: BROVANA NEBU IH SCH ×2 (08:03→20:07)
--- NOTE | 2018-07-19 10:48 | Progress Note ---
Assessment and Plan Exploratory lap, multiple surgeries - re-exploratory laparotomy, prior small bowel resection, partial colon resection, temporary abdominal closure with abthera vac s/p acute bowel perforation, diverticulitis. Improving Suspected embolic triggered bowel ischemia Post op acute respiratory failure secondary to volume overload. Resolved COPD . Controlled . Chest clear Recommendations Incentive spirometry Encouraged cough and deep breathing twice per hour Objective the patient has tolerated Nutritional support, per surgery Go Home on Albuterol MDI As Needed, Symbicort Twice a Day. Will avoid LAMA's in the context of recent bowel problems Outpatient pulmonary follow-up for COPD Further orders per primary care team Signing off Subjective Date of service: 07/19/18 Principal diagnosis: small bowel ischemiaperitonitis/penumonia Interval history: Patient complaining of pain from her colostomy site when I walk-in. Resting fully flat with no respiratory complaints. No other events overnight. Objective Vital Signs - 12hr 07/19/18 07/19/18 07/19/18 01:56 03:31 04:55 Temperature 98.2 F 98.0 F Pulse Rate 107 H 78 111 H Respiratory 16 16 Rate Blood Pressure 112/63 114/64 104/61 O2 Sat by Pulse 96 94 Oximetry 07/19/18 06:50 Temperature 98.0 F Pulse Rate 111 H Respiratory 20 Rate Blood Pressure 103/62 O2 Sat by Pulse 97 Oximetry Constitutional: no acute distress, alert Eyes: non-icteric ENT: oropharynx moist Neck: supple, no JVD Effort: normal Ascultation: Right: clear (faint rhonchi easily clearing with cough), Bilateral: diminished breath sounds Percussion: Bilateral: not dull Tactile fremitus: Bilateral: normal Cardiovascular: regular rate and rhythm Gastrointestinal: hypoactive bowel sounds, tender, other Integumentary: normal Extremities: no cyanosis, no edema Neurologic: normal mental status, non-focal exam Psychiatric: mood appropriate CBC and BMP: 07/17/18 03:18 07/17/18 03:18 ABG, PT/INR, D-dimer: ABG POC ABG pH 7.431 (7.35-7.45) 07/10/18 04:32 POC ABG pCO2 48.5 (35-45) H 07/10/18 04:32 POC ABG pO2 104 (80-105) 07/10/18 04:32 POC ABG HCO3 32.2 (22-26 mml/L) 07/10/18 04:32 POC ABG Total CO2 34 (23-27mmol/L) 07/10/18 04:32 POC ABG O2 Sat 98 07/10/18 04:32 PT/INR, D-dimer PT 44.7 Sec. (12.2-14.9) H 07/19/18 05:20 INR 4.35 (0.87-1.13) H 07/19/18 05:20 Abnormal lab findings: Abnormal Labs 06/24/18 06/24/18 06/24/18 11:18 11:19 11:19 WBC 19.0 H RBC Hgb Hct MCHC 35 H RDW Plt Count 457 H Lymph % (Auto) [place] % (Auto) [place] # Baso # Seg Neutrophils % Seg Neuts % (Manual) 88.0 H Lymphocytes % (Manual) 2.0 L Monocytes % (Manual) Seg Neutrophils # Seg Neutrophils # Man 16.7 H Lymphocytes # (Manual) 0.4 L Monocytes # (Manual) PT 15.9 H INR 1.19 H APTT Heparin Anti-Xa Level POC ABG pH POC ABG pCO2 POC ABG pO2 Sodium 136 L Potassium 2.8 L* Chloride 96.7 L Carbon Dioxide BUN Creatinine 0.4 L Glucose 146 H POC Glucose Calcium Phosphorus TIBC Total Bilirubin 1.90 H Direct Bilirubin 1.5 H Alkaline Phosphatase 264 H C-Reactive Protein NT-Pro-B Natriuret Pep Total Protein Albumin 3.0 L Prealbumin Lipase 8 L Vitamin B12 Folate Ur Specific [place] Vancomycin Trough Crossmatch 06/24/18 06/24/18 06/25/18 13:00 19:47 06:55 WBC 18.3 H RBC Hgb Hct MCHC 35 H RDW Plt Count 481 H Lymph % (Auto) [place] % (Auto) [place] # Baso # Seg Neutrophils % Seg Neuts % (Manual) 88.0 H Lymphocytes % (Manual) 4.0 L Monocytes % (Manual) Seg Neutrophils # Seg Neutrophils # Man 16.1 H Lymphocytes # (Manual) 0.7 L Monocytes # (Manual) PT INR APTT Heparin Anti-Xa Level POC ABG pH POC ABG pCO2 POC ABG pO2 Sodium Potassium 3.5 L D Chloride Carbon Dioxide 21 L BUN Creatinine 0.3 L Glucose 166 H POC Glucose Calcium 7.4 L D Phosphorus TIBC Total Bilirubin Direct Bilirubin Alkaline Phosphatase C-Reactive Protein NT-Pro-B Natriuret Pep Total Protein Albumin Prealbumin Lipase Vitamin B12 Folate Ur Specific [place] > 1.059 H Vancomycin Trough Crossmatch 06/25/18 06/26/18 06/26/18 06:55 11:54 11:54 WBC 19.9 H RBC 3.48 L Hgb Hct MCHC RDW Plt Count 583 H Lymph % (Auto) [place] % (Auto) [place] # Baso # Seg Neutrophils % Seg Neuts % (Manual) Lymphocytes % (Manual) Monocytes % (Manual) Seg Neutrophils # Seg Neutrophils # Man Lymphocytes # (Manual) Monocytes # (Manual) PT INR APTT Heparin Anti-Xa Level POC ABG pH POC ABG pCO2 POC ABG pO2 Sodium 146 H Potassium 3.5 L Chloride 108.3 H 109.9 H Carbon Dioxide BUN Creatinine 0.4 L 0.3 L Glucose 159 H 153 H POC Glucose Calcium 7.7 L 8.2 L Phosphorus TIBC Total Bilirubin Direct Bilirubin Alkaline Phosphatase 152 H C-Reactive Protein NT-Pro-B Natriuret Pep Total Protein 5.3 L Albumin 2.1 L Prealbumin Lipase Vitamin B12 Folate Ur Specific [place] Vancomycin Trough Crossmatch 06/26/18 06/26/18 06/27/18 14:12 20:37 02:04 WBC RBC Hgb Hct MCHC RDW Plt Count Lymph % (Auto) [place] % (Auto) [place] # Baso # Seg Neutrophils % Seg Neuts % (Manual) Lymphocytes % (Manual) Monocytes % (Manual) Seg Neutrophils # Seg Neutrophils # Man Lymphocytes # (Manual) Monocytes # (Manual) PT INR APTT Heparin Anti-Xa Level POC ABG pH 7.471 H 7.458 H POC ABG pCO2 POC ABG pO2 74 L 70 L Sodium Potassium Chloride Carbon Dioxide BUN Creatinine Glucose POC Glucose Calcium Phosphorus TIBC Total Bilirubin Direct Bilirubin Alkaline Phosphatase C-Reactive Protein 25.70 H NT-Pro-B Natriuret Pep Total Protein Albumin Prealbumin Lipase Vitamin B12 Folate Ur Specific [place] Vancomycin Trough Crossmatch 06/27/18 06/27/18 06/28/18 09:19 11:50 00:17 WBC 24.5 H 37.2 H RBC Hgb Hct MCHC RDW 15.4 H Plt Count 583 H 657 H Lymph % (Auto) [place] % (Auto) [place] # Baso # Seg Neutrophils % Seg Neuts % (Manual) 98.0 H 88.5 H Lymphocytes % (Manual) 1.0 L 4.0 L Monocytes % (Manual) Seg Neutrophils # Seg Neutrophils # Man 24.0 H 32.9 H Lymphocytes # (Manual) 0.2 L Monocytes # (Manual) 1.1 H PT INR APTT Heparin Anti-Xa Level POC ABG pH POC ABG pCO2 POC ABG pO2 Sodium 146 H Potassium 3.5 L Chloride Carbon Dioxide BUN Creatinine 0.3 L Glucose 176 H POC Glucose Calcium 8.2 L Phosphorus TIBC Total Bilirubin Direct Bilirubin Alkaline Phosphatase C-Reactive Protein NT-Pro-B Natriuret Pep Total Protein Albumin Prealbumin Lipase Vitamin B12 Folate Ur Specific [place] Vancomycin Trough Crossmatch 06/28/18 06/28/18 06/28/18 09:56 09:56 09:56 WBC 37.8 H RBC Hgb Hct MCHC RDW 15.3 H Plt Count 634 H Lymph % (Auto) [place] % (Auto) [place] # Baso # Seg Neutrophils % Seg Neuts % (Manual) Lymphocytes % (Manual) Monocytes % (Manual) Seg Neutrophils # Seg Neutrophils # Man Lymphocytes # (Manual) Monocytes # (Manual) PT INR APTT Heparin Anti-Xa Level POC ABG pH POC ABG pCO2 POC ABG pO2 Sodium 146 H Potassium 2.8 L* Chloride Carbon Dioxide 31 H BUN Creatinine 0.3 L Glucose 142 H POC Glucose Calcium 8.2 L Phosphorus TIBC Total Bilirubin Direct Bilirubin Alkaline Phosphatase C-Reactive Protein NT-Pro-B Natriuret Pep 1572 H Total Protein Albumin Prealbumin Lipase Vitamin B12 Folate Ur Specific [place] Vancomycin Trough Crossmatch 06/28/18 06/28/18 06/29/18 13:19 21:24 00:57 WBC 28.9 H RBC Hgb Hct MCHC RDW Plt Count 681 H Lymph % (Auto) [place] % (Auto) [place] # Baso # Seg Neutrophils % Seg Neuts % (Manual) 93.0 H Lymphocytes % (Manual) 1.5 L Monocytes % (Manual) Seg Neutrophils # Seg Neutrophils # Man 26.9 H Lymphocytes # (Manual) 0.4 L Monocytes # (Manual) PT INR APTT Heparin Anti-Xa Level POC ABG pH 7.470 H POC ABG pCO2 53.0 H POC ABG pO2 120 H Sodium Potassium 3.0 L Chloride Carbon Dioxide 33 H BUN Creatinine 0.3 L Glucose 116 H POC Glucose Calcium 8.2 L Phosphorus TIBC Total Bilirubin Direct Bilirubin Alkaline Phosphatase C-Reactive Protein NT-Pro-B Natriuret Pep Total Protein Albumin Prealbumin Lipase Vitamin B12 Folate Ur Specific [place] Vancomycin Trough Crossmatch 06/29/18 06/29/18 06/29/18 05:58 05:58 12:21 WBC 25.8 H RBC Hgb Hct MCHC RDW Plt Count 661 H Lymph % (Auto) [place] % (Auto) [place] # Baso # Seg Neutrophils % Seg Neuts % (Manual) Lymphocytes % (Manual) Monocytes % (Manual) Seg Neutrophils # Seg Neutrophils # Man Lymphocytes # (Manual) Monocytes # (Manual) PT INR APTT Heparin Anti-Xa Level POC ABG pH POC ABG pCO2 POC ABG pO2 Sodium Potassium 2.7 L* Chloride Carbon Dioxide 35 H BUN Creatinine 0.3 L Glucose 132 H POC Glucose 130 H Calcium 8.2 L Phosphorus TIBC Total Bilirubin Direct Bilirubin Alkaline Phosphatase C-Reactive Protein NT-Pro-B Natriuret Pep Total Protein Albumin Prealbumin Lipase Vitamin B12 Folate Ur Specific [place] Vancomycin Trough Crossmatch 06/29/18 06/29/18 06/30/18 17:53 18:52 05:02 WBC RBC Hgb Hct MCHC RDW Plt Count Lymph % (Auto) [place] % (Auto) [place] # Baso # Seg Neutrophils % Seg Neuts % (Manual) Lymphocytes % (Manual) Monocytes % (Manual) Seg Neutrophils # Seg Neutrophils # Man Lymphocytes # (Manual) Monocytes # (Manual) PT INR APTT Heparin Anti-Xa Level POC ABG pH POC ABG pCO2 POC ABG pO2 Sodium Potassium 3.1 L Chloride Carbon Dioxide 33 H BUN Creatinine 0.3 L Glucose 129 H POC Glucose 109 H 106 H Calcium 8.2 L Phosphorus TIBC Total Bilirubin Direct Bilirubin Alkaline Phosphatase C-Reactive Protein NT-Pro-B Natriuret Pep Total Protein Albumin Prealbumin Lipase Vitamin B12 Folate Ur Specific [place] Vancomycin Trough Crossmatch 06/30/18 06/30/18 06/30/18 07:19 07:19 16:17 WBC 23.1 H RBC Hgb Hct MCHC RDW Plt Count 652 H Lymph % (Auto) [place] % (Auto) [place] # Baso # Seg Neutrophils % Seg Neuts % (Manual) Lymphocytes % (Manual) Monocytes % (Manual) Seg Neutrophils # Seg Neutrophils # Man Lymphocytes # (Manual) Monocytes # (Manual) PT INR APTT Heparin Anti-Xa Level POC ABG pH POC ABG pCO2 POC ABG pO2 Sodium Potassium 2.8 L* Chloride Carbon Dioxide BUN Creatinine 0.3 L Glucose 109 H POC Glucose Calcium 8.2 L Phosphorus TIBC Total Bilirubin Direct Bilirubin Alkaline Phosphatase C-Reactive Protein NT-Pro-B Natriuret Pep Total Protein Albumin Prealbumin Lipase Vitamin B12 Folate Ur Specific [place] Vancomycin Trough < 4.0 L Crossmatch 06/30/18 06/30/18 06/30/18 16:17 16:17 19:00 WBC RBC Hgb Hct MCHC RDW Plt Count Lymph % (Auto) [place] % (Auto) [place] # Baso # Seg Neutrophils % Seg Neuts % (Manual) Lymphocytes % (Manual) Monocytes % (Manual) Seg Neutrophils # Seg Neutrophils # Man Lymphocytes # (Manual) Monocytes # (Manual) PT INR APTT Heparin Anti-Xa Level POC ABG pH POC ABG pCO2 POC ABG pO2 Sodium Potassium 3.0 L 3.2 L Chloride Carbon Dioxide BUN Creatinine 0.3 L Glucose 138 H POC Glucose Calcium Phosphorus 2.30 L D TIBC Total Bilirubin Direct Bilirubin Alkaline Phosphatase C-Reactive Protein NT-Pro-B Natriuret Pep Total Protein Albumin Prealbumin Lipase Vitamin B12 Folate Ur Specific [place] Vancomycin Trough Crossmatch 07/01/18 07/01/18 07/01/18 04:04 04:04 12:21 WBC 26.3 H RBC Hgb Hct MCHC RDW Plt Count Lymph % (Auto) [place] % (Auto) [place] # Baso # Seg Neutrophils % Seg Neuts % (Manual) Lymphocytes % (Manual) Monocytes % (Manual) Seg Neutrophils # Seg Neutrophils # Man Lymphocytes # (Manual) Monocytes # (Manual) PT INR APTT Heparin Anti-Xa Level POC ABG pH POC ABG pCO2 POC ABG pO2 Sodium 147 H Potassium Chloride Carbon Dioxide BUN 22 H Creatinine 0.3 L Glucose 126 H POC Glucose 190 H Calcium Phosphorus TIBC Total Bilirubin Direct Bilirubin Alkaline Phosphatase C-Reactive Protein NT-Pro-B Natriuret Pep Total Protein Albumin Prealbumin Lipase Vitamin B12 Folate Ur Specific [place] Vancomycin Trough Crossmatch 07/02/18 07/02/18 07/03/18 04:17 04:17 09:58 WBC 40.2 H* 48.6 H* RBC 3.51 L Hgb Hct MCHC RDW Plt Count Lymph % (Auto) [place] % (Auto) [place] # Baso # Seg Neutrophils % Seg Neuts % (Manual) Lymphocytes % (Manual) Monocytes % (Manual) Seg Neutrophils # Seg Neutrophils # Man Lymphocytes # (Manual) Monocytes # (Manual) PT INR APTT Heparin Anti-Xa Level POC ABG pH POC ABG pCO2 POC ABG pO2 Sodium Potassium 3.4 L Chloride Carbon Dioxide 32 H BUN 30 H Creatinine 0.3 L Glucose 166 H POC Glucose Calcium Phosphorus TIBC Total Bilirubin Direct Bilirubin Alkaline Phosphatase C-Reactive Protein NT-Pro-B Natriuret Pep Total Protein Albumin Prealbumin Lipase Vitamin B12 Folate Ur Specific [place] Vancomycin Trough Crossmatch 07/03/18 07/03/18 07/04/18 09:58 11:07 05:37 WBC 48.5 H* RBC 3.53 L Hgb Hct MCHC RDW Plt Count 477 H Lymph % (Auto) [place] % (Auto) [place] # Baso # Seg Neutrophils % Seg Neuts % (Manual) Lymphocytes % (Manual) Monocytes % (Manual) Seg Neutrophils # Seg Neutrophils # Man Lymphocytes # (Manual) Monocytes # (Manual) PT INR APTT Heparin Anti-Xa Level POC ABG pH POC ABG pCO2 POC ABG pO2 Sodium Potassium 3.5 L Chloride Carbon Dioxide 31 H BUN 33 H Creatinine 0.3 L Glucose 162 H POC Glucose Calcium Phosphorus TIBC Total Bilirubin Direct Bilirubin Alkaline Phosphatase C-Reactive Protein 13.20 H NT-Pro-B Natriuret Pep Total Protein Albumin Prealbumin Lipase Vitamin B12 Folate Ur Specific [place] Vancomycin Trough Crossmatch 07/04/18 07/04/18 07/04/18 05:37 17:54 17:54 WBC RBC Hgb Hct MCHC RDW Plt Count Lymph % (Auto) [place] % (Auto) [place] # Baso # Seg Neutrophils % Seg Neuts % (Manual) Lymphocytes % (Manual) Monocytes % (Manual) Seg Neutrophils # Seg Neutrophils # Man Lymphocytes # (Manual) Monocytes # (Manual) PT INR APTT Heparin Anti-Xa Level POC ABG pH POC ABG pCO2 POC ABG pO2 Sodium Potassium 3.4 L Chloride Carbon Dioxide 32 H BUN 30 H Creatinine 0.3 L Glucose 146 H POC Glucose Calcium Phosphorus TIBC Total Bilirubin Direct Bilirubin Alkaline Phosphatase C-Reactive Protein NT-Pro-B Natriuret Pep Total Protein Albumin Prealbumin Lipase Vitamin B12 Folate Ur Specific [place] Vancomycin Trough Crossmatch See Detail See Detail 07/04/18 07/04/18 07/04/18 19:00 19:00 21:50 WBC RBC Hgb 9.5 L Hct 28.7 L MCHC RDW Plt Count 512 H Lymph % (Auto) [place] % (Auto) [place] # Baso # Seg Neutrophils % Seg Neuts % (Manual) Lymphocytes % (Manual) Monocytes % (Manual) Seg Neutrophils # Seg Neutrophils # Man Lymphocytes # (Manual) Monocytes # (Manual) PT 18.7 H INR 1.46 H APTT Heparin Anti-Xa Level POC ABG pH 7.469 H POC ABG pCO2 45.8 H POC ABG pO2 109 H Sodium Potassium Chloride Carbon Dioxide BUN Creatinine Glucose POC Glucose Calcium Phosphorus TIBC Total Bilirubin Direct Bilirubin Alkaline Phosphatase C-Reactive Protein NT-Pro-B Natriuret Pep Total Protein Albumin Prealbumin Lipase Vitamin B12 Folate Ur Specific [place] Vancomycin Trough Crossmatch 07/05/18 07/05/18 07/05/18 03:14 03:14 03:14 WBC 36.6 H RBC 3.12 L Hgb 9.1 L Hct 27.5 L MCHC RDW Plt Count 529 H Lymph % (Auto) [place] % (Auto) [place] # Baso # Seg Neutrophils % Seg Neuts % (Manual) Lymphocytes % (Manual) Monocytes % (Manual) Seg Neutrophils # Seg Neutrophils # Man Lymphocytes # (Manual) Monocytes # (Manual) PT INR APTT Heparin Anti-Xa Level 0.10 L POC ABG pH POC ABG pCO2 POC ABG pO2 Sodium Potassium Chloride Carbon Dioxide BUN 29 H Creatinine 0.2 L Glucose 149 H POC Glucose Calcium 8.1 L Phosphorus TIBC Total Bilirubin Direct Bilirubin Alkaline Phosphatase C-Reactive Protein NT-Pro-B Natriuret Pep Total Protein 4.5 L Albumin 1.6 L Prealbumin Lipase Vitamin B12 Folate Ur Specific [place] Vancomycin Trough Crossmatch 07/05/18 07/05/18 07/05/18 04:45 10:57 10:57 WBC RBC Hgb Hct MCHC RDW Plt Count Lymph % (Auto) [place] % (Auto) [place] # Baso # Seg Neutrophils % Seg Neuts % (Manual) Lymphocytes % (Manual) Monocytes % (Manual) Seg Neutrophils # Seg Neutrophils # Man Lymphocytes # (Manual) Monocytes # (Manual) PT INR APTT Heparin Anti-Xa Level < 0.10 L POC ABG pH POC ABG pCO2 50.6 H POC ABG pO2 181 H Sodium Potassium Chloride Carbon Dioxide BUN Creatinine Glucose POC Glucose Calcium Phosphorus TIBC Total Bilirubin Direct Bilirubin Alkaline Phosphatase C-Reactive Protein NT-Pro-B Natriuret Pep Total Protein Albumin Prealbumin Lipase Vitamin B12 Folate Ur Specific [place] Vancomycin Trough 38.9 H Crossmatch 07/05/18 07/06/18 07/06/18 18:27 02:00 04:48 WBC RBC Hgb Hct MCHC RDW Plt Count Lymph % (Auto) [place] % (Auto) [place] # Baso # Seg Neutrophils % Seg Neuts % (Manual) Lymphocytes % (Manual) Monocytes % (Manual) Seg Neutrophils # Seg Neutrophils # Man Lymphocytes # (Manual) Monocytes # (Manual) PT INR APTT Heparin Anti-Xa Level < 0.10 L 0.23 L POC ABG pH POC ABG pCO2 POC ABG pO2 118 H Sodium Potassium Chloride Carbon Dioxide BUN Creatinine Glucose POC Glucose Calcium Phosphorus TIBC Total Bilirubin Direct Bilirubin Alkaline Phosphatase C-Reactive Protein NT-Pro-B Natriuret Pep Total Protein Albumin Prealbumin Lipase Vitamin B12 Folate Ur Specific [place] Vancomycin Trough Crossmatch 07/06/18 07/06/18 07/06/18 05:00 05:00 12:05 WBC 23.1 H RBC 2.50 L Hgb 7.3 L Hct 22.3 L MCHC RDW Plt Count 541 H Lymph % (Auto) [place] % (Auto) [place] # Baso # Seg Neutrophils % Seg Neuts % (Manual) Lymphocytes % (Manual) Monocytes % (Manual) Seg Neutrophils # Seg Neutrophils # Man Lymphocytes # (Manual) Monocytes # (Manual) PT INR APTT Heparin Anti-Xa Level 0.14 L POC ABG pH POC ABG pCO2 POC ABG pO2 Sodium Potassium Chloride 109.8 H Carbon Dioxide BUN 27 H Creatinine 0.2 L Glucose 157 H POC Glucose Calcium 7.7 L Phosphorus 1.60 L TIBC Total Bilirubin Direct Bilirubin Alkaline Phosphatase C-Reactive Protein NT-Pro-B Natriuret Pep Total Protein 4.5 L Albumin 1.7 L Prealbumin Lipase Vitamin B12 Folate Ur Specific [place] Vancomycin Trough Crossmatch 07/06/18 07/06/18 07/07/18 17:29 19:45 00:17 WBC RBC Hgb Hct MCHC RDW Plt Count Lymph % (Auto) [place] % (Auto) [place] # Baso # Seg Neutrophils % Seg Neuts % (Manual) Lymphocytes % (Manual) Monocytes % (Manual) Seg Neutrophils # Seg Neutrophils # Man Lymphocytes # (Manual) Monocytes # (Manual) PT INR APTT Heparin Anti-Xa Level 0.18 L POC ABG pH POC ABG pCO2 POC ABG pO2 Sodium Potassium Chloride Carbon Dioxide BUN Creatinine Glucose POC Glucose 141 H 143 H Calcium Phosphorus TIBC Total Bilirubin Direct Bilirubin Alkaline Phosphatase C-Reactive Protein NT-Pro-B Natriuret Pep Total Protein Albumin Prealbumin Lipase Vitamin B12 Folate Ur Specific [place] Vancomycin Trough Crossmatch 07/07/18 07/07/18 07/07/18 02:14 02:14 05:09 WBC RBC Hgb Hct MCHC RDW Plt Count Lymph % (Auto) [place] % (Auto) [place] # Baso # Seg Neutrophils % Seg Neuts % (Manual) Lymphocytes % (Manual) Monocytes % (Manual) Seg Neutrophils # Seg Neutrophils # Man Lymphocytes # (Manual) Monocytes # (Manual) PT INR APTT Heparin Anti-Xa Level < 0.10 L POC ABG pH POC ABG pCO2 POC ABG pO2 Sodium Potassium 3.4 L Chloride Carbon Dioxide BUN Creatinine < 0.2 L Glucose 127 H POC Glucose 126 H Calcium 7.6 L Phosphorus 2.10 L D TIBC Total Bilirubin Direct Bilirubin Alkaline Phosphatase C-Reactive Protein NT-Pro-B Natriuret Pep Total Protein Albumin Prealbumin Lipase Vitamin B12 Folate Ur Specific [place] Vancomycin Trough Crossmatch 07/07/18 07/07/18 07/07/18 07:08 10:57 11:50 WBC 19.3 H RBC 2.49 L Hgb 7.2 L Hct 22.2 L MCHC RDW Plt Count 517 H Lymph % (Auto) [place] % (Auto) [place] # Baso # Seg Neutrophils % Seg Neuts % (Manual) Lymphocytes % (Manual) Monocytes % (Manual) Seg Neutrophils # Seg Neutrophils # Man Lymphocytes # (Manual) Monocytes # (Manual) PT INR APTT Heparin Anti-Xa Level POC ABG pH POC ABG pCO2 POC ABG pO2 Sodium Potassium Chloride Carbon Dioxide BUN Creatinine Glucose POC Glucose 115 H Calcium Phosphorus TIBC 94 L Total Bilirubin Direct Bilirubin Alkaline Phosphatase C-Reactive Protein NT-Pro-B Natriuret Pep Total Protein Albumin Prealbumin Lipase Vitamin B12 Folate Ur Specific [place] Vancomycin Trough Crossmatch 07/07/18 07/07/18 07/07/18 11:50 11:50 15:20 WBC RBC Hgb Hct MCHC RDW Plt Count 489 H Lymph % (Auto) [place] % (Auto) [place] # Baso # Seg Neutrophils % Seg Neuts % (Manual) Lymphocytes % (Manual) Monocytes % (Manual) Seg Neutrophils # Seg Neutrophils # Man Lymphocytes # (Manual) Monocytes # (Manual) PT INR APTT Heparin Anti-Xa Level POC ABG pH POC ABG pCO2 POC ABG pO2 Sodium Potassium Chloride Carbon Dioxide BUN Creatinine Glucose POC Glucose Calcium Phosphorus TIBC Total Bilirubin Direct Bilirubin Alkaline Phosphatase C-Reactive Protein NT-Pro-B Natriuret Pep Total Protein Albumin Prealbumin Lipase Vitamin B12 924.8 H Folate 4.92 L Ur Specific [place] Vancomycin Trough Crossmatch 07/07/18 07/07/18 07/07/18 15:20 18:16 20:04 WBC RBC Hgb Hct MCHC RDW Plt Count Lymph % (Auto) [place] % (Auto) [place] # Baso # Seg Neutrophils % Seg Neuts % (Manual) Lymphocytes % (Manual) Monocytes % (Manual) Seg Neutrophils # Seg Neutrophils # Man Lymphocytes # (Manual) Monocytes # (Manual) PT 15.2 H INR APTT 42.2 H Heparin Anti-Xa Level < 0.10 L POC ABG pH POC ABG pCO2 POC ABG pO2 Sodium Potassium Chloride Carbon Dioxide BUN Creatinine Glucose POC Glucose 125 H Calcium Phosphorus TIBC Total Bilirubin Direct Bilirubin Alkaline Phosphatase C-Reactive Protein NT-Pro-B Natriuret Pep Total Protein Albumin Prealbumin Lipase Vitamin B12 Folate Ur Specific [place] Vancomycin Trough Crossmatch 07/08/18 07/08/18 07/08/18 01:07 03:40 03:40 WBC RBC Hgb Hct MCHC RDW Plt Count 477 H Lymph % (Auto) [place] % (Auto) [place] # Baso # Seg Neutrophils % Seg Neuts % (Manual) Lymphocytes % (Manual) Monocytes % (Manual) Seg Neutrophils # Seg Neutrophils # Man Lymphocytes # (Manual) Monocytes # (Manual) PT INR APTT Heparin Anti-Xa Level POC ABG pH POC ABG pCO2 POC ABG pO2 Sodium Potassium Chloride Carbon Dioxide BUN Creatinine < 0.2 L Glucose 161 H POC Glucose 132 H Calcium 7.9 L Phosphorus TIBC Total Bilirubin Direct Bilirubin Alkaline Phosphatase C-Reactive Protein NT-Pro-B Natriuret Pep Total Protein Albumin Prealbumin Lipase Vitamin B12 Folate Ur Specific [place] Vancomycin Trough Crossmatch 07/08/18 07/08/18 07/08/18 06:16 11:35 17:28 WBC RBC Hgb Hct MCHC RDW Plt Count Lymph % (Auto) [place] % (Auto) [place] # Baso # Seg Neutrophils % Seg Neuts % (Manual) Lymphocytes % (Manual) Monocytes % (Manual) Seg Neutrophils # Seg Neutrophils # Man Lymphocytes # (Manual) Monocytes # (Manual) PT INR APTT Heparin Anti-Xa Level POC ABG pH POC ABG pCO2 POC ABG pO2 Sodium Potassium Chloride Carbon Dioxide BUN Creatinine Glucose POC Glucose 143 H 154 H 136 H Calcium Phosphorus TIBC Total Bilirubin Direct Bilirubin Alkaline Phosphatase C-Reactive Protein NT-Pro-B Natriuret Pep Total Protein Albumin Prealbumin Lipase Vitamin B12 Folate Ur Specific [place] Vancomycin Trough Crossmatch 07/08/18 07/09/18 07/09/18 23:12 04:37 05:30 WBC RBC Hgb 8.6 L Hct 25.6 L D MCHC RDW Plt Count 445 H Lymph % (Auto) [place] % (Auto) [place] # Baso # Seg Neutrophils % Seg Neuts % (Manual) Lymphocytes % (Manual) Monocytes % (Manual) Seg Neutrophils # Seg Neutrophils # Man Lymphocytes # (Manual) Monocytes # (Manual) PT INR APTT Heparin Anti-Xa Level POC ABG pH POC ABG pCO2 46.9 H POC ABG pO2 120 H Sodium Potassium Chloride Carbon Dioxide BUN Creatinine Glucose POC Glucose 146 H Calcium Phosphorus TIBC Total Bilirubin Direct Bilirubin Alkaline Phosphatase C-Reactive Protein NT-Pro-B Natriuret Pep Total Protein Albumin Prealbumin Lipase Vitamin B12 Folate Ur Specific [place] Vancomycin Trough Crossmatch 07/09/18 07/09/18 07/09/18 05:30 05:34 23:41 WBC RBC Hgb Hct MCHC RDW Plt Count Lymph % (Auto) [place] % (Auto) [place] # Baso # Seg Neutrophils % Seg Neuts % (Manual) Lymphocytes % (Manual) Monocytes % (Manual) Seg Neutrophils # Seg Neutrophils # Man Lymphocytes # (Manual) Monocytes # (Manual) PT INR APTT Heparin Anti-Xa Level POC ABG pH POC ABG pCO2 POC ABG pO2 Sodium Potassium 3.3 L D Chloride Carbon Dioxide 33 H BUN Creatinine < 0.2 L Glucose 145 H POC Glucose 149 H 123 H Calcium 7.8 L Phosphorus 2.40 L TIBC Total Bilirubin Direct Bilirubin Alkaline Phosphatase C-Reactive Protein NT-Pro-B Natriuret Pep Total Protein Albumin Prealbumin Lipase Vitamin B12 Folate Ur Specific [place] Vancomycin Trough Crossmatch 07/10/18 07/10/18 07/10/18 04:32 05:45 05:50 WBC 12.4 H RBC 2.83 L Hgb 8.6 L Hct 24.8 L MCHC 35 H RDW 15.3 H Plt Count 477 H Lymph % (Auto) [place] % (Auto) [place] # Baso # Seg Neutrophils % Seg Neuts % (Manual) Lymphocytes % (Manual) Monocytes % (Manual) Seg Neutrophils # Seg Neutrophils # Man Lymphocytes # (Manual) Monocytes # (Manual) PT INR APTT Heparin Anti-Xa Level POC ABG pH POC ABG pCO2 48.5 H POC ABG pO2 Sodium Potassium Chloride Carbon Dioxide BUN Creatinine Glucose POC Glucose 124 H Calcium Phosphorus TIBC Total Bilirubin Direct Bilirubin Alkaline Phosphatase C-Reactive Protein NT-Pro-B Natriuret Pep Total Protein Albumin Prealbumin Lipase Vitamin B12 Folate Ur Specific [place] Vancomycin Trough Crossmatch 07/10/18 07/10/18 07/10/18 05:50 10:11 11:52 WBC RBC Hgb Hct MCHC RDW Plt Count Lymph % (Auto) [place] % (Auto) [place] # Baso # Seg Neutrophils % Seg Neuts % (Manual) Lymphocytes % (Manual) Monocytes % (Manual) Seg Neutrophils # Seg Neutrophils # Man Lymphocytes # (Manual) Monocytes # (Manual) PT INR APTT Heparin Anti-Xa Level < 0.10 L POC ABG pH POC ABG pCO2 POC ABG pO2 Sodium Potassium Chloride Carbon Dioxide BUN Creatinine < 0.2 L Glucose 131 H POC Glucose 126 H Calcium 8.3 L Phosphorus TIBC Total Bilirubin Direct Bilirubin Alkaline Phosphatase C-Reactive Protein NT-Pro-B Natriuret Pep Total Protein 4.8 L Albumin 1.9 L Prealbumin Lipase Vitamin B12 Folate Ur Specific [place] Vancomycin Trough Crossmatch 07/10/18 07/10/18 07/10/18 17:17 18:41 23:24 WBC RBC Hgb Hct MCHC RDW Plt Count Lymph % (Auto) [place] % (Auto) [place] # Baso # Seg Neutrophils % Seg Neuts % (Manual) Lymphocytes % (Manual) Monocytes % (Manual) Seg Neutrophils # Seg Neutrophils # Man Lymphocytes # (Manual) Monocytes # (Manual) PT INR APTT Heparin Anti-Xa Level POC ABG pH POC ABG pCO2 POC ABG pO2 Sodium Potassium Chloride Carbon Dioxide BUN Creatinine Glucose POC Glucose 155 H 134 H 175 H Calcium Phosphorus TIBC Total Bilirubin Direct Bilirubin Alkaline Phosphatase C-Reactive Protein NT-Pro-B Natriuret Pep Total Protein Albumin Prealbumin Lipase Vitamin B12 Folate Ur Specific [place] Vancomycin Trough Crossmatch 07/11/18 07/11/18 07/11/18 05:10 05:13 05:13 WBC 17.7 H RBC 3.19 L Hgb 9.4 L Hct 28.1 L MCHC RDW Plt Count 528 H Lymph % (Auto) [place] % (Auto) [place] # Baso # Seg Neutrophils % Seg Neuts % (Manual) 71.0 H Lymphocytes % (Manual) 10.0 L Monocytes % (Manual) 9.0 H Seg Neutrophils # Seg Neutrophils # Man 12.6 H Lymphocytes # (Manual) Monocytes # (Manual) 1.6 H PT INR APTT Heparin Anti-Xa Level 0.28 L POC ABG pH POC ABG pCO2 POC ABG pO2 Sodium Potassium Chloride Carbon Dioxide BUN Creatinine Glucose POC Glucose 135 H Calcium Phosphorus TIBC Total Bilirubin Direct Bilirubin Alkaline Phosphatase C-Reactive Protein NT-Pro-B Natriuret Pep Total Protein Albumin Prealbumin Lipase Vitamin B12 Folate Ur Specific [place] Vancomycin Trough Crossmatch 07/11/18 07/11/18 07/11/18 05:13 11:33 12:10 WBC RBC Hgb Hct MCHC RDW Plt Count Lymph % (Auto) [place] % (Auto) [place] # Baso # Seg Neutrophils % Seg Neuts % (Manual) Lymphocytes % (Manual) Monocytes % (Manual) Seg Neutrophils # Seg Neutrophils # Man Lymphocytes # (Manual) Monocytes # (Manual) PT INR APTT Heparin Anti-Xa Level < 0.10 L POC ABG pH POC ABG pCO2 POC ABG pO2 Sodium Potassium Chloride Carbon Dioxide BUN Creatinine < 0.2 L Glucose 137 H POC Glucose 153 H Calcium Phosphorus TIBC Total Bilirubin Direct Bilirubin Alkaline Phosphatase 149 H C-Reactive Protein NT-Pro-B Natriuret Pep Total Protein 5.5 L Albumin 2.5 L Prealbumin Lipase Vitamin B12 Folate Ur Specific [place] Vancomycin Trough Crossmatch 07/11/18 07/11/18 07/11/18 16:00 18:12 23:45 WBC RBC Hgb Hct MCHC RDW Plt Count Lymph % (Auto) [place] % (Auto) [place] # Baso # Seg Neutrophils % Seg Neuts % (Manual) Lymphocytes % (Manual) Monocytes % (Manual) Seg Neutrophils # Seg Neutrophils # Man Lymphocytes # (Manual) Monocytes # (Manual) PT 15.1 H INR APTT Heparin Anti-Xa Level POC ABG pH POC ABG pCO2 POC ABG pO2 Sodium Potassium Chloride Carbon Dioxide BUN Creatinine Glucose POC Glucose 146 H 149 H Calcium Phosphorus TIBC Total Bilirubin Direct Bilirubin Alkaline Phosphatase C-Reactive Protein NT-Pro-B Natriuret Pep Total Protein Albumin Prealbumin Lipase Vitamin B12 Folate Ur Specific [place] Vancomycin Trough Crossmatch 07/12/18 07/12/18 07/12/18 04:16 04:16 04:16 WBC RBC Hgb Hct MCHC RDW Plt Count 533 H Lymph % (Auto) [place] % (Auto) [place] # Baso # Seg Neutrophils % Seg Neuts % (Manual) Lymphocytes % (Manual) Monocytes % (Manual) Seg Neutrophils # Seg Neutrophils # Man Lymphocytes # (Manual) Monocytes # (Manual) PT 15.6 H INR 1.17 H APTT Heparin Anti-Xa Level POC ABG pH POC ABG pCO2 POC ABG pO2 Sodium Potassium 3.2 L Chloride Carbon Dioxide BUN Creatinine < 0.2 L Glucose 148 H POC Glucose Calcium Phosphorus TIBC Total Bilirubin Direct Bilirubin Alkaline Phosphatase 168 H C-Reactive Protein NT-Pro-B Natriuret Pep Total Protein 6.1 L Albumin 2.4 L Prealbumin Lipase Vitamin B12 Folate Ur Specific [place] Vancomycin Trough Crossmatch 07/12/18 07/12/18 07/12/18 05:19 11:37 22:49 WBC RBC Hgb Hct MCHC RDW Plt Count Lymph % (Auto) [place] % (Auto) [place] # Baso # Seg Neutrophils % Seg Neuts % (Manual) Lymphocytes % (Manual) Monocytes % (Manual) Seg Neutrophils # Seg Neutrophils # Man Lymphocytes # (Manual) Monocytes # (Manual) PT INR APTT Heparin Anti-Xa Level POC ABG pH POC ABG pCO2 POC ABG pO2 Sodium Potassium Chloride Carbon Dioxide BUN Creatinine Glucose POC Glucose 151 H 152 H 141 H Calcium Phosphorus TIBC Total Bilirubin Direct Bilirubin Alkaline Phosphatase C-Reactive Protein NT-Pro-B Natriuret Pep Total Protein Albumin Prealbumin Lipase Vitamin B12 Folate Ur Specific [place] Vancomycin Trough Crossmatch 07/13/18 07/13/18 07/13/18 04:07 04:07 04:07 WBC RBC Hgb Hct MCHC RDW Plt Count 520 H Lymph % (Auto) [place] % (Auto) [place] # Baso # Seg Neutrophils % Seg Neuts % (Manual) Lymphocytes % (Manual) Monocytes % (Manual) Seg Neutrophils # Seg Neutrophils # Man Lymphocytes # (Manual) Monocytes # (Manual) PT 17.1 H INR 1.31 H APTT Heparin Anti-Xa Level POC ABG pH POC ABG pCO2 POC ABG pO2 Sodium Potassium 3.1 L Chloride Carbon Dioxide BUN Creatinine 0.2 L Glucose 110 H POC Glucose Calcium Phosphorus TIBC Total Bilirubin Direct Bilirubin Alkaline Phosphatase C-Reactive Protein NT-Pro-B Natriuret Pep Total Protein Albumin Prealbumin Lipase Vitamin B12 Folate Ur Specific [place] Vancomycin Trough Crossmatch 07/13/18 07/13/18 07/13/18 11:45 16:26 22:18 WBC RBC Hgb Hct MCHC RDW Plt Count Lymph % (Auto) [place] % (Auto) [place] # Baso # Seg Neutrophils % Seg Neuts % (Manual) Lymphocytes % (Manual) Monocytes % (Manual) Seg Neutrophils # Seg Neutrophils # Man Lymphocytes # (Manual) Monocytes # (Manual) PT INR APTT Heparin Anti-Xa Level POC ABG pH POC ABG pCO2 POC ABG pO2 Sodium Potassium Chloride Carbon Dioxide BUN Creatinine Glucose POC Glucose 137 H 129 H 133 H Calcium Phosphorus TIBC Total Bilirubin Direct Bilirubin Alkaline Phosphatase C-Reactive Protein NT-Pro-B Natriuret Pep Total Protein Albumin Prealbumin Lipase Vitamin B12 Folate Ur Specific [place] Vancomycin Trough Crossmatch 07/14/18 07/14/18 07/14/18 00:55 05:35 05:35 WBC 19.0 H RBC 3.22 L Hgb 9.5 L Hct 28.4 L MCHC RDW 15.5 H Plt Count 472 H Lymph % (Auto) 11.4 L [place] % (Auto) [place] # 1.2 H Baso # 0.2 H Seg Neutrophils % 80.8 H Seg Neuts % (Manual) Lymphocytes % (Manual) Monocytes % (Manual) Seg Neutrophils # 15.3 H Seg Neutrophils # Man Lymphocytes # (Manual) Monocytes # (Manual) PT 23.7 H INR 1.97 H APTT Heparin Anti-Xa Level POC ABG pH POC ABG pCO2 POC ABG pO2 Sodium Potassium Chloride Carbon Dioxide BUN Creatinine Glucose POC Glucose Calcium Phosphorus TIBC Total Bilirubin Direct Bilirubin Alkaline Phosphatase C-Reactive Protein NT-Pro-B Natriuret Pep Total Protein Albumin Prealbumin 0.185 L Lipase Vitamin B12 Folate Ur Specific [place] Vancomycin Trough Crossmatch 07/14/18 07/14/18 07/14/18 05:35 11:43 18:15 WBC RBC Hgb Hct MCHC RDW Plt Count Lymph % (Auto) [place] % (Auto) [place] # Baso # Seg Neutrophils % Seg Neuts % (Manual) Lymphocytes % (Manual) Monocytes % (Manual) Seg Neutrophils # Seg Neutrophils # Man Lymphocytes # (Manual) Monocytes # (Manual) PT INR APTT Heparin Anti-Xa Level POC ABG pH POC ABG pCO2 POC ABG pO2 Sodium Potassium Chloride Carbon Dioxide BUN 20 H Creatinine 0.2 L Glucose 114 H POC Glucose 128 H 123 H Calcium Phosphorus TIBC Total Bilirubin Direct Bilirubin Alkaline Phosphatase C-Reactive Protein NT-Pro-B Natriuret Pep Total Protein Albumin Prealbumin Lipase Vitamin B12 Folate Ur Specific [place] Vancomycin Trough Crossmatch 07/14/18 07/15/18 07/15/18 21:11 04:11 04:11 WBC 16.5 H RBC 3.19 L Hgb 9.5 L Hct 28.3 L MCHC RDW 15.4 H Plt Count 446 H Lymph % (Auto) 10.5 L [place] % (Auto) [place] # 0.9 H Baso # Seg Neutrophils % 82.8 H Seg Neuts % (Manual) Lymphocytes % (Manual) Monocytes % (Manual) Seg Neutrophils # 13.7 H Seg Neutrophils # Man Lymphocytes # (Manual) Monocytes # (Manual) PT 27.1 H INR 2.32 H APTT Heparin Anti-Xa Level POC ABG pH POC ABG pCO2 POC ABG pO2 Sodium Potassium Chloride Carbon Dioxide BUN Creatinine Glucose POC Glucose 131 H Calcium Phosphorus TIBC Total Bilirubin Direct Bilirubin Alkaline Phosphatase C-Reactive Protein NT-Pro-B Natriuret Pep Total Protein Albumin Prealbumin Lipase Vitamin B12 Folate Ur Specific [place] Vancomycin Trough Crossmatch 07/15/18 07/15/18 07/15/18 04:11 07:55 12:07 WBC RBC Hgb Hct MCHC RDW Plt Count Lymph % (Auto) [place] % (Auto) [place] # Baso # Seg Neutrophils % Seg Neuts % (Manual) Lymphocytes % (Manual) Monocytes % (Manual) Seg Neutrophils # Seg Neutrophils # Man Lymphocytes # (Manual) Monocytes # (Manual) PT INR APTT Heparin Anti-Xa Level POC ABG pH POC ABG pCO2 POC ABG pO2 Sodium Potassium Chloride Carbon Dioxide BUN 20 H Creatinine 0.2 L Glucose 146 H POC Glucose 128 H 132 H Calcium Phosphorus TIBC Total Bilirubin Direct Bilirubin Alkaline Phosphatase C-Reactive Protein NT-Pro-B Natriuret Pep Total Protein Albumin Prealbumin Lipase Vitamin B12 Folate Ur Specific [place] Vancomycin Trough Crossmatch 07/15/18 07/16/18 07/16/18 22:29 04:28 04:28 WBC RBC Hgb Hct MCHC RDW Plt Count Lymph % (Auto) [place] % (Auto) [place] # Baso # Seg Neutrophils % Seg Neuts % (Manual) Lymphocytes % (Manual) Monocytes % (Manual) Seg Neutrophils # Seg Neutrophils # Man Lymphocytes # (Manual) Monocytes # (Manual) PT 24.2 H INR 2.02 H APTT Heparin Anti-Xa Level POC ABG pH POC ABG pCO2 POC ABG pO2 Sodium 136 L Potassium Chloride Carbon Dioxide BUN 22 H Creatinine 0.2 L Glucose 131 H POC Glucose 130 H Calcium Phosphorus TIBC Total Bilirubin Direct Bilirubin Alkaline Phosphatase C-Reactive Protein NT-Pro-B Natriuret Pep Total Protein Albumin Prealbumin Lipase Vitamin B12 Folate Ur Specific [place] Vancomycin Trough Crossmatch 07/16/18 07/16/18 07/16/18 05:24 11:44 17:58 WBC RBC Hgb Hct MCHC RDW Plt Count Lymph % (Auto) [place] % (Auto) [place] # Baso # Seg Neutrophils % Seg Neuts % (Manual) Lymphocytes % (Manual) Monocytes % (Manual) Seg Neutrophils # Seg Neutrophils # Man Lymphocytes # (Manual) Monocytes # (Manual) PT INR APTT Heparin Anti-Xa Level POC ABG pH POC ABG pCO2 POC ABG pO2 Sodium Potassium Chloride Carbon Dioxide BUN Creatinine Glucose POC Glucose 138 H 110 H 161 H Calcium Phosphorus TIBC Total Bilirubin Direct Bilirubin Alkaline Phosphatase C-Reactive Protein NT-Pro-B Natriuret Pep Total Protein Albumin Prealbumin Lipase Vitamin B12 Folate Ur Specific [place] Vancomycin Trough Crossmatch 07/16/18 07/17/18 07/17/18 23:26 03:18 03:18 WBC RBC 3.03 L Hgb 9.1 L Hct 27.3 L MCHC RDW 16.5 H Plt Count Lymph % (Auto) [place] % (Auto) 7.6 H [place] # Baso # Seg Neutrophils % 76.6 H Seg Neuts % (Manual) Lymphocytes % (Manual) Monocytes % (Manual) Seg Neutrophils # 8.0 H Seg Neutrophils # Man Lymphocytes # (Manual) Monocytes # (Manual) PT 28.4 H INR 2.46 H APTT Heparin Anti-Xa Level POC ABG pH POC ABG pCO2 POC ABG pO2 Sodium Potassium Chloride Carbon Dioxide BUN Creatinine Glucose POC Glucose 143 H Calcium Phosphorus TIBC Total Bilirubin Direct Bilirubin Alkaline Phosphatase C-Reactive Protein NT-Pro-B Natriuret Pep Total Protein Albumin Prealbumin Lipase Vitamin B12 Folate Ur Specific [place] Vancomycin Trough Crossmatch 07/17/18 07/17/18 07/17/18 03:18 07:15 11:45 WBC RBC Hgb Hct MCHC RDW Plt Count Lymph % (Auto) [place] % (Auto) [place] # Baso # Seg Neutrophils % Seg Neuts % (Manual) Lymphocytes % (Manual) Monocytes % (Manual) Seg Neutrophils # Seg Neutrophils # Man Lymphocytes # (Manual) Monocytes # (Manual) PT INR APTT Heparin Anti-Xa Level POC ABG pH POC ABG pCO2 POC ABG pO2 Sodium Potassium Chloride Carbon Dioxide BUN 21 H Creatinine < 0.2 L Glucose 140 H POC Glucose 146 H 138 H Calcium Phosphorus TIBC Total Bilirubin Direct Bilirubin Alkaline Phosphatase 337 H C-Reactive Protein NT-Pro-B Natriuret Pep Total Protein 6.2 L Albumin 2.4 L Prealbumin Lipase Vitamin B12 Folate Ur Specific [place] Vancomycin Trough Crossmatch 07/17/18 07/18/18 07/19/18 16:18 09:31 05:20 WBC RBC Hgb Hct MCHC RDW Plt Count Lymph % (Auto) [place] % (Auto) [place] # Baso # Seg Neutrophils % Seg Neuts % (Manual) Lymphocytes % (Manual) Monocytes % (Manual) Seg Neutrophils # Seg Neutrophils # Man Lymphocytes # (Manual) Monocytes # (Manual) PT 31.6 H 44.7 H INR 2.82 H 4.35 H APTT Heparin Anti-Xa Level POC ABG pH POC ABG pCO2 POC ABG pO2 Sodium Potassium Chloride Carbon Dioxide BUN Creatinine Glucose POC Glucose 135 H Calcium Phosphorus TIBC Total Bilirubin Direct Bilirubin Alkaline Phosphatase C-Reactive Protein NT-Pro-B Natriuret Pep Total Protein Albumin Prealbumin Lipase Vitamin B12 Folate Ur Specific [place] Vancomycin Trough Crossmatch 07/19/18 05:20 WBC RBC Hgb Hct MCHC RDW Plt Count Lymph % (Auto) [place] % (Auto) [place] # Baso # Seg Neutrophils % Seg Neuts % (Manual) Lymphocytes % (Manual) Monocytes % (Manual) Seg Neutrophils # Seg Neutrophils # Man Lymphocytes # (Manual) Monocytes # (Manual) PT INR APTT Heparin Anti-Xa Level POC ABG pH POC ABG pCO2 POC ABG pO2 Sodium Potassium Chloride Carbon Dioxide BUN Creatinine Glucose POC Glucose Calcium Phosphorus TIBC Total Bilirubin Direct Bilirubin Alkaline Phosphatase C-Reactive Protein NT-Pro-B Natriuret Pep Total Protein Albumin Prealbumin 0.191 L Lipase Vitamin B12 Folate Ur Specific [place] Vancomycin Trough Crossmatch
[2018-07-19] MEDS: IMODIUM PO SCH ×2 (11:09→21:46)
[2018-07-19] MEDS: HABITROL TD SCH (11:11)
--- NOTE | 2018-07-19 12:14 | Progress Note ---
Assessment and Plan (1) Perforated viscus Current Visit: Yes Status: Acute Plan to address problem: 58 yo F s/p 1) Abdominal re-exploration and washout, cholecystectomy, primary closure of abdominal wall 07/10/18, POD 9 2) exploratory laparotomy, small bowel resection with primary anastamosis, right hemicolectomy with ileocolonic anastamosis, temporary closure of abdomen with abthera vac 07/07/18 3) Exploratory laparotomy, small bowel resection, partial colon resection, temporary abdominal closure with abthera vac 07/04/18; and 4) Exploratory laparotomy, Ezequiel's procedure 06/24/18 Problem list: 1. 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 Respiratory failure 5. COPD Plan: 1. Diet as tolerated 2. prn PO pain control - will change to percocet from IV dilaudid 3. incentive spirometry/pulm toilet 4. abx per ID 5. GI ppx 6. continue OOB/PT 7. imodium PO BID started and may start banana flakes as outpatient to help thicken stool 8. Patient unfunded and will greatly benefit from inpatient rehab. Ok to matty from surgery standpoint once placement is finalized D/W Dr. Oliveira. Please call with questions. Subjective Date of service: 07/19/18 Narrative: Pt seen and examined. Feels well. She is eating well. No f/c, cp, sob, n/v. Objective Vital Signs - 12hr 07/19/18 07/19/18 07/19/18 01:56 03:31 04:55 Temperature 98.2 F 98.0 F Pulse Rate 107 H 78 111 H Respiratory 16 16 Rate Blood Pressure 112/63 114/64 104/61 O2 Sat by Pulse 96 94 Oximetry 07/19/18 06:50 Temperature 98.0 F Pulse Rate 111 H Respiratory 20 Rate Blood Pressure 103/62 O2 Sat by Pulse 97 Oximetry - General physical appearance Narrative Exam: Gen: AAOx3. NAD CV: s1, S2+ resp; even and unlabored Abd: soft, NT, ND. Ostomy pink with light brown liquid stool in bag. Incision c/d/i Ext; no c/c/e - Labs 07/17/18 03:18 07/17/18 03:18
[2018-07-19] MEDS: PERCOCET 5/325 PO PRN ×2 (15:35→21:36)
--- NOTE | 2018-07-19 16:30 | Progress Note ---
Assessment and Plan Assessment and plan: Patient is 58 yo female with Nicotine Dependence, Severe Malnutrition present to ED for evaluation. Patient presented with abdominal pain for 1 week progressively worsening symptoms over the same time frame. Pt states that her abdominal pain is 10/10, generalized, nonradiating, constant, worsened with movement. Pt denies NVD, ingestion of food/water from new or different sources, BRBPR, skin rash, or recent ill contacts. She was seen and evaluated in ED and found to have PSBO complicated by Bowel Perforation, SIRS, and severe malnutrition. Pt admitted to surgical floor. Surgery consulted in ED. Patient was taken to OR urgently. She had exploratory lap. surgeon found Sigmoid diverticulitis with perforation of distal sigmoid colon, purulent peritonitis. Peritoneal lavage and Posey's procedure was done on 06/24. Post-op was doing well, but on 06/28 developed acute resp failure was put on PBIPAP, transferred to ICU. Pulmonology consulted. she was given lasix, she improved BIPAP, discontinue d, placed on HFNC Oxygen and now on oxygen by [place]. 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 Patient was also noted to have right lower quadrant not appear viable. And was taken back for exploratory laparotomy. * s/p Exploratory laparotomy, small bowel resection, partial colon resection, temporary abdominal closure with abthera vac 07/04/18, POD 1 and * Exploratory laparotomy, Ezequiel's procedure 06/24/18 * Continues on full ventilatory support * IV heparin infusion, * Plan is to repeat scan in am and possible return to OR for evaluation of remaining bowel * PICC line placed for TPN. * Discussed extensively with patients brother, Sisters and Significant other. 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 Acute hypoxic respiratory failure -RESOLVED Severe enterocolitis Purulent peritonitis Sigmoid diverticulitis with perforation of distal sigmoid colon hypokalemia, severe hyponatremia Secondary Coagulopathy Severe Moderate malnutrition Nicotine dependence Sepsis- On Cefepime, Fluconazole,flagyl leukocytosis, worsening, WBC 48.6 today Acute Mesenteric ischemia; with ischemic bowel/gangrene bowel Acute hypoxic respiratory failure;Requiring intubation , extubated Acute exacerbation of COPD Sepsis Plan INR > 4 today, Adjust warfarin by Pharmacy pain control per Surgery Imodium po bid Continues to make good improvement Continue aggressive PT/OT Wean oxygen Pulmonary toliet. Tolerating Diet ID/SURGICAL INPUT NOTED Discussed with Surgery extensively DVT/GI prophy History Interval history: Patient' seen and examined, Tolerating diet. Doing well on the floor in no acute distress Hospitalist Physical - Physical exam Narrative exam: VITAL SIGNS: Reviewed. GENERAL: The patient appeared well nourished and normally developed, Vital signs as documented. HEAD: No signs of head trauma. EYES: Pupils are equal. Extraocular motions intact. EARS: Hearing grossly intact. MOUTH: Oropharynx is normal. NECK: No adenopathy, no JVD. CHEST: Chest with clear breath sounds bilaterally. No wheezes, rales, or rhonchi. CARDIAC: Regular rate and rhythm. S1 and S2, without murmurs, gallops, or rubs. VASCULAR: No Edema. Peripheral pulses normal and equal in all extremities. ABDOMEN: abdominal incision intact. Soft, non tender and non distended. No r ebound or guarding, and no masses palpated. colostomy noted. High output. Hypoactive BS normal. MUSCULOSKELETAL: Good range of motion of all major joints. Extremities without clubbing, cyanosis or edema. NEUROLOGIC EXAM: Alert and oriented x 3 No focal sensory or strength deficits. Speech normal. Follows commands. PSYCHIATRIC: Mood normal. SKIN: colostomy pouch noted - Constitutional Vitals: Temp Pulse Resp BP Pulse Ox 98.0 F 111 H 18 103/62 97 07/19/18 06:50 07/19/18 08:00 07/19/18 08:00 07/19/18 06:50 07/19/18 10:00 General appearance: Present: no acute distress, well-nourished Results - Labs CBC & Chem 7: 07/17/18 03:18 07/17/18 03:18 Labs: Laboratory Last Values WBC 10.5 K/mm3 (4.5-11.0) 07/17/18 03:18 RBC 3.03 M/mm3 (3.65-5.03) L 07/17/18 03:18 Hgb 9.1 gm/dl (10.1-14.3) L 07/17/18 03:18 Hct 27.3 % (30.3-42.9) L 07/17/18 03:18 MCV 90 fl (79-97) 07/17/18 03:18 MCH 30 pg (28-32) 07/17/18 03:18 MCHC 34 % (30-34) 07/17/18 03:18 RDW 16.5 % (13.2-15.2) H 07/17/18 03:18 Plt Count 408 K/mm3 (140-440) 07/17/18 03:18 Lymph % (Auto) 14.4 % (13.4-35.0) 07/17/18 03:18 [place] % (Auto) 7.6 % (0.0-7.3) H 07/17/18 03:18 Eos % (Auto) 1.1 % (0.0-4.3) 07/17/18 03:18 Baso % (Auto) 0.3 % (0.0-1.8) 07/17/18 03:18 Lymph # 1.5 K/mm3 (1.2-5.4) 07/17/18 03:18 [place] # 0.8 K/mm3 (0.0-0.8) 07/17/18 03:18 Eos # 0.1 K/mm3 (0.0-0.4) 07/17/18 03:18 Baso # 0.0 K/mm3 (0.0-0.1) 07/17/18 03:18 Add Manual Diff Complete 07/11/18 05:13 Total Counted 100 07/11/18 05:13 Seg Neutrophils % 76.6 % (40.0-70.0) H 07/17/18 03:18 Seg Neuts % (Manual) 71.0 % (40.0-70.0) H 07/11/18 05:13 10.0 % 07/11/18 05:13 10.0 % (13.4-35.0) L 07/11/18 05:13 Reactive Lymphs % (Man) 0 % 07/11/18 05:13 9.0 % (0.0-7.3) H 07/11/18 05:13 0 % (0.0-4.3) 07/11/18 05:13 0 % (0.0-1.8) 07/11/18 05:13 0 % 07/11/18 05:13 0 % 07/11/18 05:13 0 % 07/11/18 05:13 0 % 07/11/18 05:13 Nucleated RBC % Not Reportable 07/11/18 05:13 Seg Neutrophils # 8.0 K/mm3 (1.8-7.7) H 07/17/18 03:18 Seg Neutrophils # Man 12.6 K/mm3 (1.8-7.7) H 07/11/18 05:13 Band Neutrophils # 1.8 K/mm3 07/11/18 05:13 1.8 K/mm3 (1.2-5.4) 07/11/18 05:13 Abs React Lymphs (Man) 0.0 K/mm3 07/11/18 05:13 1.6 K/mm3 (0.0-0.8) H 07/11/18 05:13 0.0 K/mm3 (0.0-0.4) 07/11/18 05:13 0.0 K/mm3 (0.0-0.1) 07/11/18 05:13 0.0 K/mm3 07/11/18 05:13 0.0 K/mm3 07/11/18 05:13 0.0 K/mm3 07/11/18 05:13 Blast Cells # 0.0 K/mm3 07/11/18 05:13 WBC Morphology Not Reportable 07/11/18 05:13 Hypersegmented Neuts Not Reportable 07/11/18 05:13 Hyposegmented Neuts Not Reportable 07/11/18 05:13 Hypogranular Neuts Not Reportable 07/11/18 05:13 Not Reportable 07/11/18 05:13 Not Reportable 07/11/18 05:13 Not Reportable 07/11/18 05:13 Not Reportable 07/11/18 05:13 Not Reportable 07/11/18 05:13 Not Reportable 07/11/18 05:13 Appears increased 07/11/18 05:13 Not Reportable 07/11/18 05:13 Plt Clumps, EDTA Not Reportable 07/11/18 05:13 Not Reportable 07/11/18 05:13 Not Reportable 07/11/18 05:13 Not Reportable 07/11/18 05:13 Plt Morphology Comment Not Reportable 07/11/18 05:13 RBC Morphology Not Reportable 07/11/18 05:13 Dimorphic RBCs Not Reportable 07/11/18 05:13 1+ 07/11/18 05:13 Not Reportable 07/11/18 05:13 Not Reportable 07/11/18 05:13 1+ 07/11/18 05:13 Not Reportable 07/11/18 05:13 Not Reportable 07/11/18 05:13 Not Reportable 07/11/18 05:13 Not Reportable 07/11/18 05:13 Not Reportable 07/11/18 05:13 Rare 07/11/18 05:13 Not Reportable 07/11/18 05:13 Not Reportable 07/11/18 05:13 Few 07/11/18 05:13 Not Reportable 07/11/18 05:13 Not Reportable 07/11/18 05:13 Not Reportable 07/11/18 05:13 Not Reportable 07/11/18 05:13 Not Reportable 07/11/18 05:13 Not Reportable 07/11/18 05:13 Not Reportable 07/11/18 05:13 Acanthocytes (Spur) Not Reportable 07/11/18 05:13 Rouleaux Not Reportable 07/11/18 05:13 Not Reportable 07/11/18 05:13 Not Reportable 07/11/18 05:13 Not Reportable 07/11/18 05:13 Not Reportable 07/11/18 05:13 Hem Pathologist Commnt No 07/11/18 05:13 PT 44.7 Sec. (12.2-14.9) H 07/19/18 05:20 INR 4.35 (0.87-1.13) H 07/19/18 05:20 APTT 42.2 Sec. (24.2-36.6) H 07/07/18 15:20 Heparin Anti-Xa Level 0.42 U.I./ml (0.3-0.7) 07/14/18 21:32 POC ABG pH 7.431 (7.35-7.45) 07/10/18 04:32 POC ABG pCO2 48.5 (35-45) H 07/10/18 04:32 POC ABG pO2 104 (80-105) 07/10/18 04:32 POC ABG HCO3 32.2 (22-26 mml/L) 07/10/18 04:32 POC ABG Total CO2 34 (23-27mmol/L) 07/10/18 04:32 POC ABG O2 Sat 98 07/10/18 04:32 POC ABG Base Excess 8 ((-2) - (+3)mmol/L) 07/10/18 04:32 28 % 07/10/18 04:32 Sodium 140 mmol/L (137-145) 07/17/18 03:18 Potassium 4.1 mmol/L (3.6-5.0) 07/17/18 03:18 Chloride 105.2 mmol/L (98-107) 07/17/18 03:18 Carbon Dioxide 27 mmol/L (22-30) 07/17/18 03:18 12 mmol/L 07/17/18 03:18 BUN 21 mg/dL (7-17) H 07/17/18 03:18 < 0.2 mg/dL (0.7-1.2) L 07/17/18 03:18 Estimated GFR > 60 ml/min 07/17/18 03:18 105 % 07/17/18 03:18 Glucose 140 mg/dL (65-100) H 07/17/18 03:18 POC Glucose 135 (70-105) H 07/17/18 16:18 Lactic Acid 1.40 mmol/L (0.7-2.0) 07/04/18 21:11 Calcium 8.5 mg/dL (8.4-10.2) 07/17/18 03:18 Phosphorus 3.60 mg/dL (2.5-4.5) 07/16/18 04:28 Magnesium 2.10 mg/dL (1.7-2.3) 07/16/18 04:28 Iron 40 ug/dL (37-170) 07/07/18 11:50 TIBC 94 mcg/dL (250-450) L 07/07/18 11:50 377.8 ng/mL (13.0-400.0) 07/07/18 11:50 0.50 mg/dL (0.1-1.2) 07/17/18 03:18 < 0.2 mg/dL (0-0.2) 07/12/18 04:16 0.2 mg/dL 07/12/18 04:16 AST 31 units/L (5-40) 07/17/18 03:18 ALT 48 units/L (7-56) 07/17/18 03:18 337 units/L (35-129) H 07/17/18 03:18 13.20 mg/dL (0.00-1.30) H 07/03/18 11:07 NT-Pro-B Natriuret Pep 1572 pg/mL (0-900) H 06/28/18 09:56 6.2 g/dL (6.3-8.2) L 07/17/18 03:18 2.4 g/dL (3.9-5) L 07/17/18 03:18 0.6 % 07/17/18 03:18 0.191 g/L (0.200-0.400) L 07/19/18 05:20 Triglycerides 127 mg/dL (2-149) 07/07/18 02:14 8 units/L (13-60) L 06/24/18 11:19 Vitamin B12 924.8 pg/mL (211-911) H 07/07/18 11:50 4.92 ng/mL (7.3-26.0) L 07/07/18 11:50 Na (Yellow) 07/03/18 Unknown Hazy (Clear) 07/03/18 Unknown 6.0 (5.0-7.0) 07/03/18 Unknown Ur Specific [place] 1.023 (1.003-1.030) 07/03/18 Unknown <15 mg/dl mg/dL (Negative) 07/03/18 Unknown Neg mg/dL (Negative) 07/03/18 Unknown Neg mg/dL (Negative) 07/03/18 Unknown Sm (Negative) 07/03/18 Unknown Neg (Negative) 07/03/18 Unknown Neg (Negative) 07/03/18 Unknown < 2.0 mg/dL (<2.0) 07/03/18 Unknown Ur Leukocyte Esterase Neg (Negative) 07/03/18 Unknown 1.0 /HPF (0.0-6.0) 07/03/18 Unknown 3.0 /HPF (0.0-6.0) 07/03/18 Unknown U Epithel Cells (Auto) 7.0 /HPF (0-13.0) 07/03/18 Unknown 1+ /HPF (Negative) 06/24/18 13:00 Few /HPF 07/03/18 Unknown Vancomycin Trough 38.9 ug/mL (5.0-20.0) H 07/05/18 10:57 Blood Type O POSITIVE 07/04/18 17:54 Antibody Screen TNR 07/04/18 17:54 FADY Antibody Screen Negative 07/04/18 17:54 Crossmatch See Detail 07/04/18 17:54 Crossmatch See Detail 07/04/18 17:54 Active Medications - Current Medications Current Medications: Generic Name Dose Route Start Last Admin Trade Name Freq PRN Reason Stop Dose Admin Albuterol 2.5 mg 07/02/18 07:44 Proventil IH Q4HRT PRN Shortness Of Breath Arformoterol Tartrate 15 mcg 07/12/18 20:00 07/19/18 08:03 Brovana Nebu IH 15 mcg Q12HRT MAURICIO Administration Budesonide 0.5 mg 07/02/18 20:00 07/19/18 08:03 Pulmicort IH 0.5 mg Q12HRT MAURICIO Administration Famotidine 20 mg 07/11/18 10:00 07/19/18 11:11 Pepcid IV 20 mg BID MAURICIO Administration Hydrophilic Ointment 1 applic 07/04/18 18:23 Vaseline Lip Therapy TP Q2HR PRN Dry Lips Loperamide HCl 2 mg 07/18/18 18:00 07/19/18 11:09 Imodium PO 2 mg Q12H MAURICIO Administration Metoprolol Tartrate 12.5 mg 07/14/18 22:00 07/19/18 11:09 Lopressor PO 12.5 mg BID MAURICIO Administration Multi-Ingred Cream/Lotion/Oil/Oint 1 applic 07/04/18 18:23 Artificial Tears Ophth Oint OU Q4HR PRN Dry Eye(s) Naloxone HCl 0.1 mg 06/24/18 18:55 Narcan 0.4 Mg/1 Ml IV Q2MIN PRN Res Rate </= 8 or 02 SAT < 92% Nicotine 14 mg 06/25/18 10:00 07/19/18 11:11 Habitrol TD Not Given QDAY MAURICIO Ondansetron HCl 4 mg 06/24/18 14:00 07/17/18 02:01 Zofran IV 4 mg Q8H PRN Administration Nausea And Vomiting Oxycodone/Acetaminophen 2 tab 07/19/18 12:11 07/19/18 15:35 Percocet 5/325 PO 2 tab Q6H PRN Administration Pain, Moderate (4-6) Simethicone 80 mg 07/15/18 19:25 07/18/18 17:55 Mylicon PO 80 mg Q6H PRN Administration Gas pain Sodium Chloride 10 ml 06/24/18 22:00 07/18/18 13:13 Sodium Chloride Flush Syringe 10 Ml IV 10 ml BID MAURICIO Administration Sodium Chloride 10 ml 06/24/18 14:00 07/17/18 10:00 Sodium Chloride Flush Syringe 10 Ml IV 10 ml PRN PRN Administration LINE FLUSH Zolpidem Tartrate 5 mg 07/15/18 19:25 07/17/18 23:03 Ambien PO 5 mg QHS PRN Administration Sleep Nutrition/Malnutrition Assess - Dietary Evaluation Nutrition/Malnutrition Findings: Nutrition Notes Start: 06/30/18 16:45 Freq: Status: Active Protocol: Document 07/17/18 12:39 JANICE (Rec: 07/17/18 12:44 JANICE [email or web address]) Nutrition Notes Initial or Follow up Reassessment Other Pertinent Diagnosis Perforated viscus s/p exp lap Current Diet CPN at 75ml/hr + GI soft + Ensure Enlive BID Labs/Tests Reviewed Pertinent Medications Reviewed Height 5 ft 3 in Weight 52.3 kg [place] Body Weight (kg) 52.27 BMI 20.4 Subjective/Other Information Pt reports good appetite and drinks ONS. Per surgeon, ok to D/C TPN. RN informed to decrease TPN rate by 50% for two hrs, then D/C. Burn Absent Trauma Absent #2 Nutrition Diagnosis Inadequate oral intake As Evidenced by Signs and Symptoms pt eating ~50% of meals and drinking ONS Diagnosis Progress(for reassessment Improved documentation) #1 Nutrition Diagnosis Increased nutrient needs ( specify in comment below) Diagnosis Progress(for reassessment Continues documentation) Is patient on ventilator? No Is Patient Ambulatory and/or Out of Bed Yes REE-([place]. Jeor-ambulatory/OOB) [ 1393.769 [id number]] Kcal/Kg value to use for calculation 30 Approximate Energy Requirements Using 1569 kcal/Kg Calculation Used for Recommendations Kcal/kg Additional Notes Pro needs 1.25-1.5g/k-78g /day Fluid needs 1ml/kcal Nutrition Intervention Change Diet Order: Continue GI soft diet Nutrition Support: D/C TPN Add Supplement/Snack (indicate name/kcal Ensure Enlive BID /protein ) Provides kCal: 700 Provides Protein (gm) 40 Goal #1 PO intake of meals plus ONS to meet at least 75% energy and pro needs Anticipated Discharge Needs: Continue Ensure Enlive 1-2 times daily Follow-Up By: 07/21/18 Additional Comments F/U: intakes, wt
[2018-07-19] MEDS ORDERED: COUMADIN NO DOSE TODAY PO ONE (17:00)
[2018-07-19] MEDS: SODIUM CHLORIDE FLUSH SYRINGE 10 ML IV SCH ×2 (21:44→21:45)
[2018-07-20] MEDS: PERCOCET 5/325 PO PRN ×3 (05:33→19:09)
[2018-07-20] MEDS: SODIUM CHLORIDE FLUSH SYRINGE 10 ML IV SCH ×3 (05:34→22:42)
[2018-07-20] MEDS: IMODIUM PO SCH ×4 (05:34→22:35)
[2018-07-20 07:05] LABS: INR 4.85 (0.87-1.13)
[2018-07-20] MEDS: BROVANA NEBU IH SCH ×2 (07:50→20:02)
[2018-07-20] MEDS: PULMICORT IH SCH ×2 (07:50→20:02)
[2018-07-20] MEDS: HABITROL TD SCH (10:34)
[2018-07-20] MEDS: LOPRESSOR PO SCH ×2 (10:35→22:36)
[2018-07-20] MEDS: PEPCID IV SCH ×2 (10:37→22:35)
--- NOTE | 2018-07-20 11:07 | Progress Note ---
Assessment and Plan (1) Perforated viscus Current Visit: Yes Status: Acute Plan to address problem: 58 yo F s/p 1) Abdominal re-exploration and washout, cholecystectomy, primary closure of abdominal wall 07/10/18, POD 10 2) exploratory laparotomy, small bowel resection with primary anastamosis, right hemicolectomy with ileocolonic anastamosis, temporary closure of abdomen with abthera vac 07/07/18 3) Exploratory laparotomy, small bowel resection, partial colon resection, temporary abdominal closure with abthera vac 07/04/18; and 4) Exploratory laparotomy, Ezequiel's procedure 06/24/18 Problem list: 1. 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 Respiratory failure 5. COPD Plan: 1. Diet as tolerated 2. prn PO pain control - percocet and IV morphine added for breakthrough pain 3. incentive spirometry/pulm toilet 4. c/w anticoagulation per vascular team 5. GI ppx 6. continue OOB/PT 7. increased dose of imodium 8. Per admin patient will be approved for discharge to [facility] acute rehab [place] to [place] from surgery standpoint once placement is set up. Please call with questions. Subjective Date of service: 07/20/18 Narrative: Pt seen and examined. c/o pain intermittently when colostomy bag gets very filled up due to pulling. NO f/c. No n/v. Tolerating diet. Has been OOB to chair. Still having large volume stool from ostomy. Objective Vital Signs - 12hr 07/19/18 07/20/18 07/20/18 23:52 04:04 07:40 Temperature 98.5 F 98.5 F Pulse Rate 111 H 120 H Pulse Rate [ 120 H Posterior] Respiratory 18 17 Rate Respiratory 18 Rate [Posterior ] Blood Pressure 110/69 103/53 O2 Sat by Pulse 96 96 Oximetry 07/20/18 07/20/18 07/20/18 07:50 08:03 08:14 Temperature 97.7 F Pulse Rate 75 Pulse Rate [ 120 H Posterior] Respiratory 18 Rate Respiratory 18 Rate [Posterior ] Blood Pressure 99/58 O2 Sat by Pulse 90 96 Oximetry 07/20/18 10:35 Temperature Pulse Rate 120 H Pulse Rate [ Posterior] Respiratory Rate Respiratory Rate [Posterior ] Blood Pressure 99/58 O2 Sat by Pulse Oximetry - General physical appearance Narrative Exam: Gen: AAOx3. NAD CV: s1, S2+ Resp: even and unlabored Abd: soft, NT, ND. dressing c/d/i. Ostomy with yellow loose stool with some leakage at inferior aspect. Ext: no c/c/e - Labs 07/17/18 03:18 07/17/18 03:18
[2018-07-20] MEDS: MORPHINE IV PRN ×2 (13:37→22:35)
--- NOTE | 2018-07-20 23:13 | Progress Note ---
Assessment and Plan Assessment and plan: Patient is 58 yo female with Nicotine Dependence, Severe Malnutrition present to ED for evaluation. Patient presented with abdominal pain for 1 week progressively worsening symptoms over the same time frame. Pt states that her abdominal pain is 10/10, generalized, nonradiating, constant, worsened with movement. Pt denies NVD, ingestion of food/water from new or different sources, BRBPR, skin rash, or recent ill contacts. She was seen and evaluated in ED and found to have PSBO complicated by Bowel Perforation, SIRS, and severe malnutrition. Pt admitted to surgical floor. Surgery consulted in ED. Patient was taken to OR urgently. She had exploratory lap. surgeon found Sigmoid diverticulitis with perforation of distal sigmoid colon, purulent peritonitis. Peritoneal lavage and Posey's procedure was done on 06/24. Post-op was doing well, but on 06/28 developed acute resp failure was put on PBIPAP, transferred to ICU. Pulmonology consulted. she was given lasix, she improved BIPAP, discontinue d, placed on HFNC Oxygen and now on oxygen by NV. 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 Patient was also noted to have right lower quadrant not appear viable. And was taken back for exploratory laparotomy. * s/p Exploratory laparotomy, small bowel resection, partial colon resection, temporary abdominal closure with abthera vac 07/04/18, POD 1 and * Exploratory laparotomy, Ezequiel's procedure 06/24/18 * Continues on full ventilatory support * IV heparin infusion, * Plan is to repeat scan in am and possible return to OR for evaluation of remaining bowel * PICC line placed for TPN. * Discussed extensively with patients brother, Sisters and Significant other. 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 Acute hypoxic respiratory failure -RESOLVED Severe enterocolitis Purulent peritonitis Sigmoid diverticulitis with perforation of distal sigmoid colon hypokalemia, severe hyponatremia Secondary Coagulopathy Severe Moderate malnutrition Nicotine dependence Sepsis- On Cefepime, Fluconazole,flagyl leukocytosis, worsening, WBC 48.6 today Acute Mesenteric ischemia; with ischemic bowel/gangrene bowel Acute hypoxic respiratory failure;Requiring intubation , extubated Acute exacerbation of COPD Sepsis Plan INR > 4 today, Adjust warfarin by Pharmacy pain control per Surgery Imodium po bid Continues to make good improvement Continue aggressive PT/OT Wean oxygen Pulmonary toliet. Tolerating Diet ID/SURGICAL INPUT NOTED Discussed with Surgery extensively DVT/GI prophy Complete Rehab anticipate discharge on Monday 07/24 History Interval history: Patient' seen and examined, Tolerating diet. Doing well on the floor in no acute distress Hospitalist Physical - Physical exam Narrative exam: VITAL SIGNS: Reviewed. GENERAL: The patient appeared well nourished and normally developed, Vital signs as documented. HEAD: No signs of head trauma. EYES: Pupils are equal. Extraocular motions intact. EARS: Hearing grossly intact. MOUTH: Oropharynx is normal. NECK: No adenopathy, no JVD. CHEST: Chest with clear breath sounds bilaterally. No wheezes, rales, or rhonchi. CARDIAC: Regular rate and rhythm. S1 and S2, without murmurs, gallops, or rubs. VASCULAR: No Edema. Peripheral pulses normal and equal in all extremities. ABDOMEN: abdominal incision intact. Soft, non tender and non distended. No rebound or guarding, and no masses palpated. colostomy noted. High output. Hypoactive BS normal. MUSCULOSKELETAL: Good range of motion of all major joints. Extremities without clubbing, cyanosis or edema. NEUROLOGIC EXAM: Alert and oriented x 3 No focal sensory or strength deficits. Speech normal. Follows commands. PSYCHIATRIC: Mood normal. SKIN: colostomy pouch noted - Constitutional Vitals: Temp Pulse Resp BP Pulse Ox 98.2 F 114 H 20 100/65 96 07/20/18 20:34 07/20/18 22:36 07/20/18 20:34 07/20/18 22:36 07/20/18 20:34 General appearance: Present: no acute distress, well-nourished Results - Labs CBC & Chem 7: 07/17/18 03:18 07/17/18 03:18 Labs: Laboratory Last Values WBC 10.5 K/mm3 (4.5-11.0) 07/17/18 03:18 RBC 3.03 M/mm3 (3.65-5.03) L 07/17/18 03:18 Hgb 9.1 gm/dl (10.1-14.3) L 07/17/18 03:18 Hct 27.3 % (30.3-42.9) L 07/17/18 03:18 MCV 90 fl (79-97) 07/17/18 03:18 MCH 30 pg (28-32) 07/17/18 03:18 MCHC 34 % (30-34) 07/17/18 03:18 RDW 16.5 % (13.2-15.2) H 07/17/18 03:18 Plt Count 408 K/mm3 (140-440) 07/17/18 03:18 Lymph % (Auto) 14.4 % (13.4-35.0) 07/17/18 03:18 [place] % (Auto) 7.6 % (0.0-7.3) H 07/17/18 03:18 Eos % (Auto) 1.1 % (0.0-4.3) 07/17/18 03:18 Baso % (Auto) 0.3 % (0.0-1.8) 07/17/18 03:18 Lymph # 1.5 K/mm3 (1.2-5.4) 07/17/18 03:18 [place] # 0.8 K/mm3 (0.0-0.8) 07/17/18 03:18 Eos # 0.1 K/mm3 (0.0-0.4) 07/17/18 03:18 Baso # 0.0 K/mm3 (0.0-0.1) 07/17/18 03:18 Add Manual Diff Complete 07/11/18 05:13 Total Counted 100 07/11/18 05:13 Seg Neutrophils % 76.6 % (40.0-70.0) H 07/17/18 03:18 Seg Neuts % (Manual) 71.0 % (40.0-70.0) H 07/11/18 05:13 10.0 % 07/11/18 05:13 10.0 % (13.4-35.0) L 07/11/18 05:13 Reactive Lymphs % (Man) 0 % 07/11/18 05:13 9.0 % (0.0-7.3) H 07/11/18 05:13 0 % (0.0-4.3) 07/11/18 05:13 0 % (0.0-1.8) 07/11/18 05:13 0 % 07/11/18 05:13 0 % 07/11/18 05:13 0 % 07/11/18 05:13 0 % 07/11/18 05:13 Nucleated RBC % Not Reportable 07/11/18 05:13 Seg Neutrophils # 8.0 K/mm3 (1.8-7.7) H 07/17/18 03:18 Seg Neutrophils # Man 12.6 K/mm3 (1.8-7.7) H 07/11/18 05:13 Band Neutrophils # 1.8 K/mm3 07/11/18 05:13 1.8 K/mm3 (1.2-5.4) 07/11/18 05:13 Abs React Lymphs (Man) 0.0 K/mm3 07/11/18 05:13 1.6 K/mm3 (0.0-0.8) H 07/11/18 05:13 0.0 K/mm3 (0.0-0.4) 07/11/18 05:13 0.0 K/mm3 (0.0-0.1) 07/11/18 05:13 0.0 K/mm3 07/11/18 05:13 0.0 K/mm3 07/11/18 05:13 0.0 K/mm3 07/11/18 05:13 Blast Cells # 0.0 K/mm3 07/11/18 05:13 WBC Morphology Not Reportable 07/11/18 05:13 Hypersegmented Neuts Not Reportable 07/11/18 05:13 Hyposegmented Neuts Not Reportable 07/11/18 05:13 Hypogranular Neuts Not Reportable 07/11/18 05:13 Not Reportable 07/11/18 05:13 Not Reportable 07/11/18 05:13 Not Reportable 07/11/18 05:13 Not Reportable 07/11/18 05:13 Not Reportable 07/11/18 05:13 Not Reportable 07/11/18 05:13 Appears increased 07/11/18 05:13 Not Reportable 07/11/18 05:13 Plt Clumps, EDTA Not Reportable 07/11/18 05:13 Not Reportable 07/11/18 05:13 Not Reportable 07/11/18 05:13 Not Reportable 07/11/18 05:13 Plt Morphology Comment Not Reportable 07/11/18 05:13 RBC Morphology Not Reportable 07/11/18 05:13 Dimorphic RBCs Not Reportable 07/11/18 05:13 1+ 07/11/18 05:13 Not Reportable 07/11/18 05:13 Not Reportable 07/11/18 05:13 1+ 07/11/18 05:13 Not Reportable 07/11/18 05:13 Not Reportable 07/11/18 05:13 Not Reportable 07/11/18 05:13 Not Reportable 07/11/18 05:13 Not Reportable 07/11/18 05:13 Rare 07/11/18 05:13 Not Reportable 07/11/18 05:13 Not Reportable 07/11/18 05:13 Few 07/11/18 05:13 Not Reportable 07/11/18 05:13 Not Reportable 07/11/18 05:13 Not Reportable 07/11/18 05:13 Not Reportable 07/11/18 05:13 Not Reportable 07/11/18 05:13 Not Reportable 07/11/18 05:13 Not Reportable 07/11/18 05:13 Acanthocytes (Spur) Not Reportable 07/11/18 05:13 Rouleaux Not Reportable 07/11/18 05:13 Not Reportable 07/11/18 05:13 Not Reportable 07/11/18 05:13 Not Reportable 07/11/18 05:13 Not Reportable 07/11/18 05:13 Hem Pathologist Commnt No 07/11/18 05:13 PT 48.8 Sec. (12.2-14.9) H 07/20/18 Unknown INR 4.85 (0.87-1.13) H 07/20/18 Unknown APTT 42.2 Sec. (24.2-36.6) H 07/07/18 15:20 Heparin Anti-Xa Level 0.42 U.I./ml (0.3-0.7) 07/14/18 21:32 POC ABG pH 7.431 (7.35-7.45) 07/10/18 04:32 POC ABG pCO2 48.5 (35-45) H 07/10/18 04:32 POC ABG pO2 104 (80-105) 07/10/18 04:32 POC ABG HCO3 32.2 (22-26 mml/L) 07/10/18 04:32 POC ABG Total CO2 34 (23-27mmol/L) 07/10/18 04:32 POC ABG O2 Sat 98 07/10/18 04:32 POC ABG Base Excess 8 ((-2) - (+3)mmol/L) 07/10/18 04:32 28 % 07/10/18 04:32 Sodium 140 mmol/L (137-145) 07/17/18 03:18 Potassium 4.1 mmol/L (3.6-5.0) 07/17/18 03:18 Chloride 105.2 mmol/L (98-107) 07/17/18 03:18 Carbon Dioxide 27 mmol/L (22-30) 07/17/18 03:18 12 mmol/L 07/17/18 03:18 BUN 21 mg/dL (7-17) H 07/17/18 03:18 < 0.2 mg/dL (0.7-1.2) L 07/17/18 03:18 Estimated GFR > 60 ml/min 07/17/18 03:18 105 % 07/17/18 03:18 Glucose 140 mg/dL (65-100) H 07/17/18 03:18 POC Glucose 135 (70-105) H 07/17/18 16:18 Lactic Acid 1.40 mmol/L (0.7-2.0) 07/04/18 21:11 Calcium 8.5 mg/dL (8.4-10.2) 07/17/18 03:18 Phosphorus 3.60 mg/dL (2.5-4.5) 07/16/18 04:28 Magnesium 2.10 mg/dL (1.7-2.3) 07/16/18 04:28 Iron 40 ug/dL (37-170) 07/07/18 11:50 TIBC 94 mcg/dL (250-450) L 07/07/18 11:50 377.8 ng/mL (13.0-400.0) 07/07/18 11:50 0.50 mg/dL (0.1-1.2) 07/17/18 03:18 < 0.2 mg/dL (0-0.2) 07/12/18 04:16 0.2 mg/dL 07/12/18 04:16 AST 31 units/L (5-40) 07/17/18 03:18 ALT 48 units/L (7-56) 07/17/18 03:18 337 units/L (35-129) H 07/17/18 03:18 13.20 mg/dL (0.00-1.30) H 07/03/18 11:07 NT-Pro-B Natriuret Pep 1572 pg/mL (0-900) H 06/28/18 09:56 6.2 g/dL (6.3-8.2) L 07/17/18 03:18 2.4 g/dL (3.9-5) L 07/17/18 03:18 0.6 % 07/17/18 03:18 0.191 g/L (0.200-0.400) L 07/19/18 05:20 Triglycerides 127 mg/dL (2-149) 07/07/18 02:14 8 units/L (13-60) L 06/24/18 11:19 Vitamin B12 924.8 pg/mL (211-911) H 07/07/18 11:50 4.92 ng/mL (7.3-26.0) L 07/07/18 11:50 Na (Yellow) 07/03/18 Unknown Hazy (Clear) 07/03/18 Unknown 6.0 (5.0-7.0) 07/03/18 Unknown Ur Specific [place] 1.023 (1.003-1.030) 07/03/18 Unknown <15 mg/dl mg/dL (Negative) 07/03/18 Unknown Neg mg/dL (Negative) 07/03/18 Unknown Neg mg/dL (Negative) 07/03/18 Unknown Sm (Negative) 07/03/18 Unknown Neg (Negative) 07/03/18 Unknown Neg (Negative) 07/03/18 Unknown < 2.0 mg/dL (<2.0) 07/03/18 Unknown Ur Leukocyte Esterase Neg (Negative) 07/03/18 Unknown 1.0 /HPF (0.0-6.0) 07/03/18 Unknown 3.0 /HPF (0.0-6.0) 07/03/18 Unknown U Epithel Cells (Auto) 7.0 /HPF (0-13.0) 07/03/18 Unknown 1+ /HPF (Negative) 06/24/18 13:00 Few /HPF 07/03/18 Unknown Vancomycin Trough 38.9 ug/mL (5.0-20.0) H 07/05/18 10:57 Blood Type O POSITIVE 07/04/18 17:54 Antibody Screen TNR 07/04/18 17:54 FADY Antibody Screen Negative 07/04/18 17:54 Crossmatch See Detail 07/04/18 17:54 Crossmatch See Detail 07/04/18 17:54 Active Medications - Current Medications Current Medications: Generic Name Dose Route Start Last Admin Trade Name Freq PRN Reason Stop Dose Admin Albuterol 2.5 mg 07/02/18 07:44 Proventil IH Q4HRT PRN Shortness Of Breath Arformoterol Tartrate 15 mcg 07/12/18 20:00 07/20/18 20:02 Brovana Nebu IH 15 mcg Q12HRT MAURICIO Administration Budesonide 0.5 mg 07/02/18 20:00 07/20/18 20:02 Pulmicort IH 0.5 mg Q12HRT MAURICIO Administration Famotidine 20 mg 07/11/18 10:00 07/20/18 22:35 Pepcid IV 20 mg BID MAURICIO Administration Hydrophilic Ointment 1 applic 07/04/18 18:23 Vaseline Lip Therapy TP Q2HR PRN Dry Lips Loperamide HCl 2 mg 07/20/18 11:00 07/20/18 22:35 Imodium PO 2 mg Q6H MAURICIO Administration Metoprolol Tartrate 12.5 mg 07/14/18 22:00 07/20/18 22:36 Lopressor PO 12.5 mg BID MAURICIO Administration Morphine Sulfate 2 mg 07/20/18 12:30 07/20/18 22:35 Morphine IV 2 mg Q4H PRN Administration Pain , Severe (7-10) Multi-Ingred Cream/Lotion/Oil/Oint 1 applic 07/04/18 18:23 Artificial Tears Ophth Oint OU Q4HR PRN Dry Eye(s) Naloxone HCl 0.1 mg 06/24/18 18:55 Narcan 0.4 Mg/1 Ml IV Q2MIN PRN Res Rate </= 8 or 02 SAT < 92% Nicotine 14 mg 06/25/18 10:00 07/20/18 10:34 Habitrol TD Not Given QDAY MAURICIO Ondansetron HCl 4 mg 06/24/18 14:00 07/17/18 02:01 Zofran IV 4 mg Q8H PRN Administration Nausea And Vomiting Oxycodone/Acetaminophen 2 tab 07/19/18 12:11 07/20/18 19:09 Percocet 5/325 PO 2 tab Q6H PRN Administration Pain, Moderate (4-6) Simethicone 80 mg 07/15/18 19:25 07/18/18 17:55 Mylicon PO 80 mg Q6H PRN Administration Gas pain Sodium Chloride 10 ml 06/24/18 22:00 07/20/18 22:42 Sodium Chloride Flush Syringe 10 Ml IV 10 ml BID MAURICIO Administration Sodium Chloride 10 ml 06/24/18 14:00 07/17/18 10:00 Sodium Chloride Flush Syringe 10 Ml IV 10 ml PRN PRN Administration LINE FLUSH Zolpidem Tartrate 5 mg 07/15/18 19:25 07/17/18 23:03 Ambien PO 5 mg QHS PRN Administration Sleep Nutrition/Malnutrition Assess - Dietary Evaluation Nutrition/Malnutrition Findings: Nutrition Notes Start: 06/30/18 16:45 Freq: Status: Active Protocol: Document 07/17/18 12:39 JANICE (Rec: 07/17/18 12:44 [facility] SRW- [id number]) Nutrition Notes Initial or Follow up Reassessment Other Pertinent Diagnosis Perforated viscus s/p exp lap Current Diet CPN at 75ml/hr + GI soft + Ensure Enlive BID Labs/Tests Reviewed Pertinent Medications Reviewed Height 5 ft 3 in Weight 52.3 kg [place] Body Weight (kg) 52.27 BMI 20.4 Subjective/Other Information Pt reports good appetite and drinks ONS. Per surgeon, ok to D/C TPN. RN informed to decrease TPN rate by 50% for two hrs, then D/C. Burn Absent Trauma Absent #2 Nutrition Diagnosis Inadequate oral intake As Evidenced by Signs and Symptoms pt eating ~50% of meals and drinking ONS Diagnosis Progress(for reassessment Improved documentation) #1 Nutrition Diagnosis Increased nutrient needs ( specify in comment below) Diagnosis Progress(for reassessment Continues documentation) Is patient on ventilator? No Is Patient Ambulatory and/or Out of Bed Yes [facility] [ 1393.769 [id number]] Kcal/Kg value to use for calculation 30 Approximate Energy Requirements Using 1569 kcal/Kg Calculation Used for Recommendations Kcal/kg Additional Notes Pro needs 1.25-1.5g/k-78g /day Fluid needs 1ml/kcal Nutrition Intervention Change Diet Order: Continue GI soft diet Nutrition Support: D/C TPN Add Supplement/Snack (indicate name/kcal Ensure Enlive BID /protein ) Provides kCal: 700 Provides Protein (gm) 40 Goal #1 PO intake of meals plus ONS to meet at least 75% energy and pro needs Anticipated Discharge Needs: Continue Ensure Enlive 1-2 times daily Follow-Up By: 07/21/18 Additional Comments F/U: intakes, wt
[2018-07-21] MEDS: MORPHINE IV PRN ×5 (04:22→21:19)
[2018-07-21] MEDS: IMODIUM PO SCH ×3 (06:00→17:10)
[2018-07-21 06:54] LABS: INR 4.25 (0.87-1.13)
--- NOTE | 2018-07-21 08:30 | Progress Note ---
Assessment and Plan Assessment and plan: Patient is 58 yo female with Nicotine Dependence, Severe Malnutrition present to ED for evaluation. Patient presented with abdominal pain for 1 week progressively worsening symptoms over the same time frame. Pt states that her abdominal pain is 10/10, generalized, nonradiating, constant, worsened with movement. Pt denies NVD, ingestion of food/water from new or different sources, BRBPR, skin rash, or recent ill contacts. She was seen and evaluated in ED and found to have PSBO complicated by Bowel Perforation, SIRS, and severe malnutrition. Pt admitted to surgical floor. Surgery consulted in ED. Patient was taken to OR urgently. She had exploratory lap. surgeon found Sigmoid diverticulitis with perforation of distal sigmoid colon, purulent peritonitis. Peritoneal lavage and Posey's procedure was done on 06/24. Post-op was doing well, but on 06/28 developed acute resp failure was put on PBIPAP, transferred to ICU. Pulmonology consulted. she was given lasix, she improved BIPAP, discontinue d, placed on HFNC Oxygen and now on oxygen by [place]. 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 Patient was also noted to have right lower quadrant not appear viable. And was taken back for exploratory laparotomy. * s/p Exploratory laparotomy, small bowel resection, partial colon resection, temporary abdominal closure with abthera vac 07/04/18, POD 1 and * Exploratory laparotomy, Ezequiel's procedure 06/24/18 * Continues on full ventilatory support * IV heparin infusion, * Plan is to repeat scan in am and possible return to OR for evaluation of remaining bowel * PICC line placed for TPN. * Discussed extensively with patients brother, Sisters and Significant other. 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 Acute hypoxic respiratory failure -RESOLVED Severe enterocolitis Purulent peritonitis Sigmoid diverticulitis with perforation of distal sigmoid colon hypokalemia, severe hyponatremia Secondary Coagulopathy Severe Moderate malnutrition Nicotine dependence Sepsis- On Cefepime, Fluconazole, flagyl leukocytosis, worsening, WBC 48.6 today Acute Mesenteric ischemia; with ischemic bowel/gangrene bowel Acute hypoxic respiratory failure;Requiring intubation, extubated Acute exacerbation of COPD Sepsis Plan INR > 4 today, Adjust warfarin by Pharmacy pain control per Surgery Imodium po bid Continues to make good improvement Continue aggressive PT/OT Wean oxygen Pulmonary toliet. Tolerating Diet ID/SURGICAL INPUT NOTED Discussed with Surgery extensively DVT/GI prophy Complete Rehab anticipate discharge on Monday 07/24 History Interval history: Patient' seen and examined, Tolerating diet. Doing well on the floor in no acute distress, Improved colostomy drainage Hospitalist Physical - Physical exam Narrative exam: VITAL SIGNS: Reviewed. GENERAL: The patient appeared well nourished and normally developed, Vital signs as documented. HEAD: No signs of head trauma. EYES: Pupils are equal. Extraocular motions intact. EARS: Hearing grossly intact. MOUTH: Oropharynx is normal. NECK: No adenopathy, no JVD. CHEST: Chest with clear breath sounds bilaterally. No wheezes, rales, or rhonchi. CARDIAC: Regular rate and rhythm. S1 and S2, without murmurs, gallops, or rubs. VASCULAR: No Edema. Peripheral pulses normal and equal in all extremities. ABDOMEN: abdominal incision intact. Soft, non tender and non distended. No rebound or guarding, and no masses palpated. colostomy noted. High output. Hypoactive BS normal. MUSCULOSKELETAL: Good range of motion of all major joints. Extremities without clubbing, cyanosis or edema. NEUROLOGIC EXAM: Alert and oriented x 3 No focal sensory or strength deficits. Speech normal. Follows commands. PSYCHIATRIC: Mood normal. SKIN: colostomy pouch noted - Constitutional Vitals: Temp Pulse Resp BP Pulse Ox 98.8 F 121 H 18 94/57 95 07/21/18 07:43 07/21/18 07:43 07/21/18 07:43 07/21/18 07:43 07/21/18 07:43 General appearance: Present: no acute distress, well-nourished Results - Labs CBC & Chem 7: 07/17/18 03:18 07/17/18 03:18 Labs: Laboratory Last Values WBC 10.5 K/mm3 (4.5-11.0) 07/17/18 03:18 RBC 3.03 M/mm3 (3.65-5.03) L 07/17/18 03:18 Hgb 9.1 gm/dl (10.1-14.3) L 07/17/18 03:18 Hct 27.3 % (30.3-42.9) L 07/17/18 03:18 MCV 90 fl (79-97) 07/17/18 03:18 MCH 30 pg (28-32) 07/17/18 03:18 MCHC 34 % (30-34) 07/17/18 03:18 RDW 16.5 % (13.2-15.2) H 07/17/18 03:18 Plt Count 408 K/mm3 (140-440) 07/17/18 03:18 Lymph % (Auto) 14.4 % (13.4-35.0) 07/17/18 03:18 [place] % (Auto) 7.6 % (0.0-7.3) H 07/17/18 03:18 Eos % (Auto) 1.1 % (0.0-4.3) 07/17/18 03:18 Baso % (Auto) 0.3 % (0.0-1.8) 07/17/18 03:18 Lymph # 1.5 K/mm3 (1.2-5.4) 07/17/18 03:18 [place] # 0.8 K/mm3 (0.0-0.8) 07/17/18 03:18 Eos # 0.1 K/mm3 (0.0-0.4) 07/17/18 03:18 Baso # 0.0 K/mm3 (0.0-0.1) 07/17/18 03:18 Add Manual Diff Complete 07/11/18 05:13 Total Counted 100 07/11/18 05:13 Seg Neutrophils % 76.6 % (40.0-70.0) H 07/17/18 03:18 Seg Neuts % (Manual) 71.0 % (40.0-70.0) H 07/11/18 05:13 10.0 % 07/11/18 05:13 10.0 % (13.4-35.0) L 07/11/18 05:13 Reactive Lymphs % (Man) 0 % 07/11/18 05:13 9.0 % (0.0-7.3) H 07/11/18 05:13 0 % (0.0-4.3) 07/11/18 05:13 0 % (0.0-1.8) 07/11/18 05:13 0 % 07/11/18 05:13 0 % 07/11/18 05:13 0 % 07/11/18 05:13 0 % 07/11/18 05:13 Nucleated RBC % Not Reportable 07/11/18 05:13 Seg Neutrophils # 8.0 K/mm3 (1.8-7.7) H 07/17/18 03:18 Seg Neutrophils # Man 12.6 K/mm3 (1.8-7.7) H 07/11/18 05:13 Band Neutrophils # 1.8 K/mm3 07/11/18 05:13 1.8 K/mm3 (1.2-5.4) 07/11/18 05:13 Abs React Lymphs (Man) 0.0 K/mm3 07/11/18 05:13 1.6 K/mm3 (0.0-0.8) H 07/11/18 05:13 0.0 K/mm3 (0.0-0.4) 07/11/18 05:13 0.0 K/mm3 (0.0-0.1) 07/11/18 05:13 0.0 K/mm3 07/11/18 05:13 0.0 K/mm3 07/11/18 05:13 0.0 K/mm3 07/11/18 05:13 Blast Cells # 0.0 K/mm3 07/11/18 05:13 WBC Morphology Not Reportable 07/11/18 05:13 Hypersegmented Neuts Not Reportable 07/11/18 05:13 Hyposegmented Neuts Not Reportable 07/11/18 05:13 Hypogranular Neuts Not Reportable 07/11/18 05:13 Not Reportable 07/11/18 05:13 Not Reportable 07/11/18 05:13 Not Reportable 07/11/18 05:13 Not Reportable 07/11/18 05:13 Not Reportable 07/11/18 05:13 Not Reportable 07/11/18 05:13 Appears increased 07/11/18 05:13 Not Reportable 07/11/18 05:13 Plt Clumps, EDTA Not Reportable 07/11/18 05:13 Not Reportable 07/11/18 05:13 Not Reportable 07/11/18 05:13 Not Reportable 07/11/18 05:13 Plt Morphology Comment Not Reportable 07/11/18 05:13 RBC Morphology Not Reportable 07/11/18 05:13 Dimorphic RBCs Not Reportable 07/11/18 05:13 1+ 07/11/18 05:13 Not Reportable 07/11/18 05:13 Not Reportable 07/11/18 05:13 1+ 07/11/18 05:13 Not Reportable 07/11/18 05:13 Not Reportable 07/11/18 05:13 Not Reportable 07/11/18 05:13 Not Reportable 07/11/18 05:13 Not Reportable 07/11/18 05:13 Rare 07/11/18 05:13 Not Reportable 07/11/18 05:13 Not Reportable 07/11/18 05:13 Few 07/11/18 05:13 Not Reportable 07/11/18 05:13 Not Reportable 07/11/18 05:13 Not Reportable 07/11/18 05:13 Not Reportable 07/11/18 05:13 Not Reportable 07/11/18 05:13 Not Reportable 07/11/18 05:13 Not Reportable 07/11/18 05:13 Acanthocytes (Spur) Not Reportable 07/11/18 05:13 Rouleaux Not Reportable 07/11/18 05:13 Not Reportable 07/11/18 05:13 Not Reportable 07/11/18 05:13 Not Reportable 07/11/18 05:13 Not Reportable 07/11/18 05:13 Hem Pathologist Commnt No 07/11/18 05:13 PT 43.9 Sec. (12.2-14.9) H 07/21/18 05:30 INR 4.25 (0.87-1.13) H 07/21/18 05:30 APTT 42.2 Sec. (24.2-36.6) H 07/07/18 15:20 Heparin Anti-Xa Level 0.42 U.I./ml (0.3-0.7) 07/14/18 21:32 POC ABG pH 7.431 (7.35-7.45) 07/10/18 04:32 POC ABG pCO2 48.5 (35-45) H 07/10/18 04:32 POC ABG pO2 104 (80-105) 07/10/18 04:32 POC ABG HCO3 32.2 (22-26 mml/L) 07/10/18 04:32 POC ABG Total CO2 34 (23-27mmol/L) 07/10/18 04:32 POC ABG O2 Sat 98 07/10/18 04:32 POC ABG Base Excess 8 ((-2) - (+3)mmol/L) 07/10/18 04:32 28 % 07/10/18 04:32 Sodium 140 mmol/L (137-145) 07/17/18 03:18 Potassium 4.1 mmol/L (3.6-5.0) 07/17/18 03:18 Chloride 105.2 mmol/L (98-107) 07/17/18 03:18 Carbon Dioxide 27 mmol/L (22-30) 07/17/18 03:18 12 mmol/L 07/17/18 03:18 BUN 21 mg/dL (7-17) H 07/17/18 03:18 < 0.2 mg/dL (0.7-1.2) L 07/17/18 03:18 Estimated GFR > 60 ml/min 07/17/18 03:18 105 % 07/17/18 03:18 Glucose 140 mg/dL (65-100) H 07/17/18 03:18 POC Glucose 135 (70-105) H 07/17/18 16:18 Lactic Acid 1.40 mmol/L (0.7-2.0) 07/04/18 21:11 Calcium 8.5 mg/dL (8.4-10.2) 07/17/18 03:18 Phosphorus 3.60 mg/dL (2.5-4.5) 07/16/18 04:28 Magnesium 2.10 mg/dL (1.7-2.3) 07/16/18 04:28 Iron 40 ug/dL (37-170) 07/07/18 11:50 TIBC 94 mcg/dL (250-450) L 07/07/18 11:50 377.8 ng/mL (13.0-400.0) 07/07/18 11:50 0.50 mg/dL (0.1-1.2) 07/17/18 03:18 < 0.2 mg/dL (0-0.2) 07/12/18 04:16 0.2 mg/dL 07/12/18 04:16 AST 31 units/L (5-40) 07/17/18 03:18 ALT 48 units/L (7-56) 07/17/18 03:18 337 units/L (35-129) H 07/17/18 03:18 13.20 mg/dL (0.00-1.30) H 07/03/18 11:07 NT-Pro-B Natriuret Pep 1572 pg/mL (0-900) H 06/28/18 09:56 6.2 g/dL (6.3-8.2) L 07/17/18 03:18 2.4 g/dL (3.9-5) L 07/17/18 03:18 0.6 % 07/17/18 03:18 0.191 g/L (0.200-0.400) L 07/19/18 05:20 Triglycerides 127 mg/dL (2-149) 07/07/18 02:14 8 units/L (13-60) L 06/24/18 11:19 Vitamin B12 924.8 pg/mL (211-911) H 07/07/18 11:50 4.92 ng/mL (7.3-26.0) L 07/07/18 11:50 Na (Yellow) 07/03/18 Unknown Hazy (Clear) 07/03/18 Unknown 6.0 (5.0-7.0) 07/03/18 Unknown Ur Specific [place] 1.023 (1.003-1.030) 07/03/18 Unknown <15 mg/dl mg/dL (Negative) 07/03/18 Unknown Neg mg/dL (Negative) 07/03/18 Unknown Neg mg/dL (Negative) 07/03/18 Unknown Sm (Negative) 07/03/18 Unknown Neg (Negative) 07/03/18 Unknown Neg (Negative) 07/03/18 Unknown < 2.0 mg/dL (<2.0) 07/03/18 Unknown Ur Leukocyte Esterase Neg (Negative) 07/03/18 Unknown 1.0 /HPF (0.0-6.0) 07/03/18 Unknown 3.0 /HPF (0.0-6.0) 07/03/18 Unknown U Epithel Cells (Auto) 7.0 /HPF (0-13.0) 07/03/18 Unknown 1+ /HPF (Negative) 06/24/18 13:00 Few /HPF 07/03/18 Unknown Vancomycin Trough 38.9 ug/mL (5.0-20.0) H 07/05/18 10:57 Blood Type O POSITIVE 07/04/18 17:54 Antibody Screen TNR 07/04/18 17:54 FADY Antibody Screen Negative 07/04/18 17:54 Crossmatch See Detail 07/04/18 17:54 Crossmatch See Detail 07/04/18 17:54 Active Medications - Current Medications Current Medications: Generic Name Dose Route Start Last Admin Trade Name Freq PRN Reason Stop Dose Admin Albuterol 2.5 mg 07/02/18 07:44 Proventil IH Q4HRT PRN Shortness Of Breath Arformoterol Tartrate 15 mcg 07/12/18 20:00 07/20/18 20:02 Brovana Nebu IH 15 mcg Q12HRT MAURICIO Administration Budesonide 0.5 mg 07/02/18 20:00 07/20/18 20:02 Pulmicort IH 0.5 mg Q12HRT MAURICIO Administration Famotidine 20 mg 07/11/18 10:00 07/20/18 22:35 Pepcid IV 20 mg BID MAURICIO Administration Hydrophilic Ointment 1 applic 07/04/18 18:23 Vaseline Lip Therapy TP Q2HR PRN Dry Lips Loperamide HCl 2 mg 07/20/18 11:00 07/21/18 06:00 Imodium PO 2 mg Q6H MAURICIO Administration Metoprolol Tartrate 12.5 mg 07/14/18 22:00 07/20/18 22:36 Lopressor PO 12.5 mg BID MAURICIO Administration Morphine Sulfate 2 mg 07/20/18 12:30 07/21/18 04:22 Morphine IV 2 mg Q4H PRN Administration Pain , Severe (7-10) Multi-Ingred Cream/Lotion/Oil/Oint 1 applic 07/04/18 18:23 Artificial Tears Ophth Oint OU Q4HR PRN Dry Eye(s) Naloxone HCl 0.1 mg 06/24/18 18:55 Narcan 0.4 Mg/1 Ml IV Q2MIN PRN Res Rate </= 8 or 02 SAT < 92% Nicotine 14 mg 06/25/18 10:00 07/20/18 10:34 Habitrol TD Not Given QDAY MAURICIO Ondansetron HCl 4 mg 06/24/18 14:00 07/17/18 02:01 Zofran IV 4 mg Q8H PRN Administration Nausea And Vomiting Oxycodone/Acetaminophen 2 tab 07/19/18 12:11 07/20/18 19:09 Percocet 5/325 PO 2 tab Q6H PRN Administration Pain, Moderate (4-6) Simethicone 80 mg 07/15/18 19:25 07/18/18 17:55 Mylicon PO 80 mg Q6H PRN Administration Gas pain Sodium Chloride 10 ml 06/24/18 22:00 07/20/18 22:42 Sodium Chloride Flush Syringe 10 Ml IV 10 ml BID MAURICIO Administration Sodium Chloride 10 ml 06/24/18 14:00 07/17/18 10:00 Sodium Chloride Flush Syringe 10 Ml IV 10 ml PRN PRN Administration LINE FLUSH Zolpidem Tartrate 5 mg 07/15/18 19:25 07/17/18 23:03 Ambien PO 5 mg QHS PRN Administration Sleep Nutrition/Malnutrition Assess - Dietary Evaluation Nutrition/Malnutrition Findings: Nutrition Notes Start: 06/30/18 16:45 Freq: Status: Active Protocol: Document 07/17/18 12:39 JANICE (Rec: 07/17/18 12:44 JANICE [email or web address]) Nutrition Notes Initial or Follow up Reassessment Other Pertinent Diagnosis Perforated viscus s/p exp lap Current Diet CPN at 75ml/hr + GI soft + Ensure Enlive BID Labs/Tests Reviewed Pertinent Medications Reviewed Height 5 ft 3 in Weight 52.3 kg [place] Body Weight (kg) 52.27 BMI 20.4 Subjective/Other Information Pt reports good appetite and drinks ONS. Per surgeon, ok to D/C TPN. RN informed to decrease TPN rate by 50% for two hrs, then D/C. Burn Absent Trauma Absent #2 Nutrition Diagnosis Inadequate oral intake As Evidenced by Signs and Symptoms pt eating ~50% of meals and drinking ONS Diagnosis Progress(for reassessment Improved documentation) #1 Nutrition Diagnosis Increased nutrient needs ( specify in comment below) Diagnosis Progress(for reassessment Continues documentation) Is patient on ventilator? No Is Patient Ambulatory and/or Out of Bed Yes [facility] [ 1393.769 [id number]] Kcal/Kg value to use for calculation 30 Approximate Energy Requirements Using 1569 kcal/Kg Calculation Used for Recommendations Kcal/kg Additional Notes Pro needs 1.25-1.5g/k-78g /day Fluid needs 1ml/kcal Nutrition Intervention Change Diet Order: Continue GI soft diet Nutrition Support: D/C TPN Add Supplement/Snack (indicate name/kcal Ensure Enlive BID /protein ) Provides kCal: 700 Provides Protein (gm) 40 Goal #1 PO intake of meals plus ONS to meet at least 75% energy and pro needs Anticipated Discharge Needs: Continue Ensure Enlive 1-2 times daily Follow-Up By: 07/21/18 Additional Comments F/U: intakes, wt
[2018-07-21] MEDS: PULMICORT IH SCH ×2 (08:45→20:45)
[2018-07-21] MEDS: BROVANA NEBU IH SCH ×2 (08:45→20:45)
[2018-07-21] MEDS: SODIUM CHLORIDE FLUSH SYRINGE 10 ML IV SCH (08:45)
[2018-07-21] MEDS: PEPCID IV SCH (09:12)
[2018-07-21] MEDS: ZOFRAN IV PRN ×2 (09:12→17:06)
[2018-07-21] MEDS: HABITROL TD SCH (09:13)
[2018-07-21] MEDS: LOPRESSOR PO SCH (12:55)
[2018-07-21] MEDS: PEPCID PO SCH (21:21)
[2018-07-22] MEDS: PERCOCET 5/325 PO PRN ×4 (00:12→23:21)
[2018-07-22] MEDS: IMODIUM PO SCH ×5 (00:13→23:21)
[2018-07-22] MEDS: LOPRESSOR PO SCH ×3 (00:13→21:55)
[2018-07-22 05:35] LABS: INR 3.07 (0.87-1.13)
[2018-07-22] MEDS: SODIUM CHLORIDE FLUSH SYRINGE 10 ML IV SCH ×4 (07:01→21:59)
[2018-07-22] MEDS: BROVANA NEBU IH SCH ×2 (07:45→21:32)
[2018-07-22] MEDS: PULMICORT IH SCH ×2 (07:45→21:32)
[2018-07-22] MEDS: PEPCID PO SCH ×3 (08:19→21:54)
[2018-07-22] MEDS: MORPHINE IV PRN ×2 (11:03→19:16)
[2018-07-22] MEDS: HABITROL TD SCH (11:05)
--- NOTE | 2018-07-22 12:16 | Progress Note ---
Assessment and Plan Assessment and plan: Patient is 58 yo female with Nicotine Dependence, Severe Malnutrition present to ED for evaluation. Patient presented with abdominal pain for 1 week progressively worsening symptoms over the same time frame. Pt states that her abdominal pain is 10/10, generalized, nonradiating, constant, worsened with movement. Pt denies NVD, ingestion of food/water from new or different sources, BRBPR, skin rash, or recent ill contacts. She was seen and evaluated in ED and found to have PSBO complicated by Bowel Perforation, SIRS, and severe malnutrition. Pt admitted to surgical floor. Surgery consulted in ED. Patient was taken to OR urgently. She had exploratory lap. surgeon found Sigmoid diverticulitis with perforation of distal sigmoid colon, purulent peritonitis. Peritoneal lavage and Posey's procedure was done on 06/24. Post-op was doing well, but on 06/28 developed acute resp failure was put on PBIPAP, transferred to ICU. Pulmonology consulted. she was given lasix, she improved BIPAP, discontinue d, placed on HFNC Oxygen and now on oxygen by NE. 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 Patient was also noted to have right lower quadrant not appear viable. And was taken back for exploratory laparotomy. * s/p Exploratory laparotomy, small bowel resection, partial colon resection, temporary abdominal closure with abthera vac 07/04/18, POD 1 and * Exploratory laparotomy, Ezequiel's procedure 06/24/18 * Continues on full ventilatory support * IV heparin infusion, * Plan is to repeat scan in am and possible return to OR for evaluation of remaining bowel * PICC line placed for TPN. * Discussed extensively with patients brother, Sisters and Significant other. 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 Acute hypoxic respiratory failure -RESOLVED Severe enterocolitis Purulent peritonitis Sigmoid diverticulitis with perforation of distal sigmoid colon hypokalemia, severe hyponatremia Secondary Coagulopathy Severe Moderate malnutrition Nicotine dependence Sepsis- On Cefepime, Fluconazole, flagyl leukocytosis, worsening, WBC 48.6 today Acute Mesenteric ischemia; with ischemic bowel/gangrene bowel Acute hypoxic respiratory failure;Requiring intubation, extubated Acute exacerbation of COPD Sepsis Plan INR 3.07 today, Adjust warfarin by Pharmacy Continues making adjustment and weaning down morphin pain control per Surgery Imodium po bid Continues to make good improvement Continue aggressive PT/OT Wean oxygen Pulmonary toliet. Tolerating Diet ID/SURGICAL INPUT NOTED Discussed with Surgery extensively DVT/GI prophy Complete Rehab anticipate discharge on Monday 07/24 History Interval history: Patient' seen and examined, Tolerating diet. Doing well on the floor in no acute distress, Improved colostomy drainage Hospitalist Physical - Physical exam Narrative exam: VITAL SIGNS: Reviewed. GENERAL: The patient appeared well nourished and normally developed, Vital signs as documented. HEAD: No signs of head trauma. EYES: Pupils are equal. Extraocular motions intact. EARS: Hearing grossly intact. MOUTH: Oropharynx is normal. NECK: No adenopathy, no JVD. CHEST: Chest with clear breath sounds bilaterally. No wheezes, rales, or rhonchi. CARDIAC: Regular rate and rhythm. S1 and S2, without murmurs, gallops, or rubs. VASCULAR: No Edema. Peripheral pulses normal and equal in all extremities. ABDOMEN: abdominal incision intact. Soft, non tender and non distended. No rebound or guarding, and no masses palpated. colostomy noted. High output. Hypoactive BS normal. MUSCULOSKELETAL: Good range of motion of all major joints. Extremities without clubbing, cyanosis or edema. NEUROLOGIC EXAM: Alert and oriented x 3 No focal sensory or strength deficits. Speech normal. Follows commands. PSYCHIATRIC: Mood normal. SKIN: colostomy pouch noted - Constitutional Vitals: Temp Pulse Resp BP Pulse Ox 98.2 F 119 H 18 98/58 96 07/22/18 08:11 07/22/18 07:53 07/22/18 07:53 07/22/18 07:53 07/22/18 07:53 General appearance: Present: no acute distress, well-nourished Results - Labs CBC & Chem 7: 07/17/18 03:18 07/17/18 03:18 Labs: Laboratory Last Values WBC 10.5 K/mm3 (4.5-11.0) 07/17/18 03:18 RBC 3.03 M/mm3 (3.65-5.03) L 07/17/18 03:18 Hgb 9.1 gm/dl (10.1-14.3) L 07/17/18 03:18 Hct 27.3 % (30.3-42.9) L 07/17/18 03:18 MCV 90 fl (79-97) 07/17/18 03:18 MCH 30 pg (28-32) 07/17/18 03:18 MCHC 34 % (30-34) 07/17/18 03:18 RDW 16.5 % (13.2-15.2) H 07/17/18 03:18 Plt Count 408 K/mm3 (140-440) 07/17/18 03:18 Lymph % (Auto) 14.4 % (13.4-35.0) 07/17/18 03:18 [place] % (Auto) 7.6 % (0.0-7.3) H 07/17/18 03:18 Eos % (Auto) 1.1 % (0.0-4.3) 07/17/18 03:18 Baso % (Auto) 0.3 % (0.0-1.8) 07/17/18 03:18 Lymph # 1.5 K/mm3 (1.2-5.4) 07/17/18 03:18 [place] # 0.8 K/mm3 (0.0-0.8) 07/17/18 03:18 Eos # 0.1 K/mm3 (0.0-0.4) 07/17/18 03:18 Baso # 0.0 K/mm3 (0.0-0.1) 07/17/18 03:18 Add Manual Diff Complete 07/11/18 05:13 Total Counted 100 07/11/18 05:13 Seg Neutrophils % 76.6 % (40.0-70.0) H 07/17/18 03:18 Seg Neuts % (Manual) 71.0 % (40.0-70.0) H 07/11/18 05:13 10.0 % 07/11/18 05:13 10.0 % (13.4-35.0) L 07/11/18 05:13 Reactive Lymphs % (Man) 0 % 07/11/18 05:13 9.0 % (0.0-7.3) H 07/11/18 05:13 0 % (0.0-4.3) 07/11/18 05:13 0 % (0.0-1.8) 07/11/18 05:13 0 % 07/11/18 05:13 0 % 07/11/18 05:13 0 % 07/11/18 05:13 0 % 07/11/18 05:13 Nucleated RBC % Not Reportable 07/11/18 05:13 Seg Neutrophils # 8.0 K/mm3 (1.8-7.7) H 07/17/18 03:18 Seg Neutrophils # Man 12.6 K/mm3 (1.8-7.7) H 07/11/18 05:13 Band Neutrophils # 1.8 K/mm3 07/11/18 05:13 1.8 K/mm3 (1.2-5.4) 07/11/18 05:13 Abs React Lymphs (Man) 0.0 K/mm3 07/11/18 05:13 1.6 K/mm3 (0.0-0.8) H 07/11/18 05:13 0.0 K/mm3 (0.0-0.4) 07/11/18 05:13 0.0 K/mm3 (0.0-0.1) 07/11/18 05:13 0.0 K/mm3 07/11/18 05:13 0.0 K/mm3 07/11/18 05:13 0.0 K/mm3 07/11/18 05:13 Blast Cells # 0.0 K/mm3 07/11/18 05:13 WBC Morphology Not Reportable 07/11/18 05:13 Hypersegmented Neuts Not Reportable 07/11/18 05:13 Hyposegmented Neuts Not Reportable 07/11/18 05:13 Hypogranular Neuts Not Reportable 07/11/18 05:13 Not Reportable 07/11/18 05:13 Not Reportable 07/11/18 05:13 Not Reportable 07/11/18 05:13 Not Reportable 07/11/18 05:13 Not Reportable 07/11/18 05:13 Not Reportable 07/11/18 05:13 Appears increased 07/11/18 05:13 Not Reportable 07/11/18 05:13 Plt Clumps, EDTA Not Reportable 07/11/18 05:13 Not Reportable 07/11/18 05:13 Not Reportable 07/11/18 05:13 Not Reportable 07/11/18 05:13 Plt Morphology Comment Not Reportable 07/11/18 05:13 RBC Morphology Not Reportable 07/11/18 05:13 Dimorphic RBCs Not Reportable 07/11/18 05:13 1+ 07/11/18 05:13 Not Reportable 07/11/18 05:13 Not Reportable 07/11/18 05:13 1+ 07/11/18 05:13 Not Reportable 07/11/18 05:13 Not Reportable 07/11/18 05:13 Not Reportable 07/11/18 05:13 Not Reportable 07/11/18 05:13 Not Reportable 07/11/18 05:13 Rare 07/11/18 05:13 Not Reportable 07/11/18 05:13 Not Reportable 07/11/18 05:13 Few 07/11/18 05:13 Not Reportable 07/11/18 05:13 Not Reportable 07/11/18 05:13 Not Reportable 07/11/18 05:13 Not Reportable 07/11/18 05:13 Not Reportable 07/11/18 05:13 Not Reportable 07/11/18 05:13 Not Reportable 07/11/18 05:13 Acanthocytes (Spur) Not Reportable 07/11/18 05:13 Rouleaux Not Reportable 07/11/18 05:13 Not Reportable 07/11/18 05:13 Not Reportable 07/11/18 05:13 Not Reportable 07/11/18 05:13 Not Reportable 07/11/18 05:13 Hem Pathologist Commnt No 07/11/18 05:13 PT 31.2 Sec. (12.2-14.9) H 07/22/18 05:10 INR 3.07 (0.87-1.13) H 07/22/18 05:10 APTT 42.2 Sec. (24.2-36.6) H 07/07/18 15:20 Heparin Anti-Xa Level 0.42 U.I./ml (0.3-0.7) 07/14/18 21:32 POC ABG pH 7.431 (7.35-7.45) 07/10/18 04:32 POC ABG pCO2 48.5 (35-45) H 07/10/18 04:32 POC ABG pO2 104 (80-105) 07/10/18 04:32 POC ABG HCO3 32.2 (22-26 mml/L) 07/10/18 04:32 POC ABG Total CO2 34 (23-27mmol/L) 07/10/18 04:32 POC ABG O2 Sat 98 07/10/18 04:32 POC ABG Base Excess 8 ((-2) - (+3)mmol/L) 07/10/18 04:32 28 % 07/10/18 04:32 Sodium 140 mmol/L (137-145) 07/17/18 03:18 Potassium 4.1 mmol/L (3.6-5.0) 07/17/18 03:18 Chloride 105.2 mmol/L (98-107) 07/17/18 03:18 Carbon Dioxide 27 mmol/L (22-30) 07/17/18 03:18 12 mmol/L 07/17/18 03:18 BUN 21 mg/dL (7-17) H 07/17/18 03:18 < 0.2 mg/dL (0.7-1.2) L 07/17/18 03:18 Estimated GFR > 60 ml/min 07/17/18 03:18 105 % 07/17/18 03:18 Glucose 140 mg/dL (65-100) H 07/17/18 03:18 POC Glucose 135 (70-105) H 07/17/18 16:18 Lactic Acid 1.40 mmol/L (0.7-2.0) 07/04/18 21:11 Calcium 8.5 mg/dL (8.4-10.2) 07/17/18 03:18 Phosphorus 3.60 mg/dL (2.5-4.5) 07/16/18 04:28 Magnesium 2.10 mg/dL (1.7-2.3) 07/16/18 04:28 Iron 40 ug/dL (37-170) 07/07/18 11:50 TIBC 94 mcg/dL (250-450) L 07/07/18 11:50 377.8 ng/mL (13.0-400.0) 07/07/18 11:50 0.50 mg/dL (0.1-1.2) 07/17/18 03:18 < 0.2 mg/dL (0-0.2) 07/12/18 04:16 0.2 mg/dL 07/12/18 04:16 AST 31 units/L (5-40) 07/17/18 03:18 ALT 48 units/L (7-56) 07/17/18 03:18 337 units/L (35-129) H 07/17/18 03:18 13.20 mg/dL (0.00-1.30) H 07/03/18 11:07 NT-Pro-B Natriuret Pep 1572 pg/mL (0-900) H 06/28/18 09:56 6.2 g/dL (6.3-8.2) L 07/17/18 03:18 2.4 g/dL (3.9-5) L 07/17/18 03:18 0.6 % 07/17/18 03:18 0.191 g/L (0.200-0.400) L 07/19/18 05:20 Triglycerides 127 mg/dL (2-149) 07/07/18 02:14 8 units/L (13-60) L 06/24/18 11:19 Vitamin B12 924.8 pg/mL (211-911) H 07/07/18 11:50 4.92 ng/mL (7.3-26.0) L 07/07/18 11:50 Na (Yellow) 07/03/18 Unknown Hazy (Clear) 07/03/18 Unknown 6.0 (5.0-7.0) 07/03/18 Unknown Ur Specific [place] 1.023 (1.003-1.030) 07/03/18 Unknown <15 mg/dl mg/dL (Negative) 07/03/18 Unknown Neg mg/dL (Negative) 07/03/18 Unknown Neg mg/dL (Negative) 07/03/18 Unknown Sm (Negative) 07/03/18 Unknown Neg (Negative) 07/03/18 Unknown Neg (Negative) 07/03/18 Unknown < 2.0 mg/dL (<2.0) 07/03/18 Unknown Ur Leukocyte Esterase Neg (Negative) 07/03/18 Unknown 1.0 /HPF (0.0-6.0) 07/03/18 Unknown 3.0 /HPF (0.0-6.0) 07/03/18 Unknown U Epithel Cells (Auto) 7.0 /HPF (0-13.0) 07/03/18 Unknown 1+ /HPF (Negative) 06/24/18 13:00 Few /HPF 07/03/18 Unknown Vancomycin Trough 38.9 ug/mL (5.0-20.0) H 07/05/18 10:57 Blood Type O POSITIVE 07/04/18 17:54 Antibody Screen TNR 07/04/18 17:54 FADY Antibody Screen Negative 07/04/18 17:54 Crossmatch See Detail 07/04/18 17:54 Crossmatch See Detail 07/04/18 17:54 Active Medications - Current Medications Current Medications: Generic Name Dose Route Start Last Admin Trade Name Freq PRN Reason Stop Dose Admin Albuterol 2.5 mg 07/02/18 07:44 Proventil IH Q4HRT PRN Shortness Of Breath Arformoterol Tartrate 15 mcg 07/12/18 20:00 07/22/18 07:45 Brovana Nebu IH 15 mcg Q12HRT MAURICIO Administration Budesonide 0.5 mg 07/02/18 20:00 07/22/18 07:45 Pulmicort IH 0.5 mg Q12HRT MAURICIO Administration Famotidine 20 mg 07/21/18 22:00 07/22/18 08:19 Pepcid PO 20 mg BID MAURICIO Administration Hydrophilic Ointment 1 applic 07/04/18 18:23 07/21/18 17:19 Vaseline Lip Therapy TP 1 applic Q2HR PRN Administration Dry Lips Loperamide HCl 2 mg 07/20/18 11:00 07/22/18 11:07 Imodium PO 2 mg Q6H MAURICIO Administration Metoprolol Tartrate 12.5 mg 07/14/18 22:00 07/22/18 00:13 Lopressor PO 12.5 mg BID MAURICIO Administration Morphine Sulfate 2 mg 07/20/18 12:30 07/22/18 11:03 Morphine IV 2 mg Q4H PRN Administration Pain , Severe (7-10) Multi-Ingred Cream/Lotion/Oil/Oint 1 applic 07/04/18 18:23 Artificial Tears Ophth Oint OU Q4HR PRN Dry Eye(s) Naloxone HCl 0.1 mg 06/24/18 18:55 Narcan 0.4 Mg/1 Ml IV Q2MIN PRN Res Rate </= 8 or 02 SAT < 92% Nicotine 14 mg 06/25/18 10:00 07/22/18 11:05 Habitrol TD Not Given QDAY [facility] Ondansetron HCl 4 mg 06/24/18 14:00 07/21/18 17:06 Zofran IV 4 mg Q8H PRN Administration Nausea And Vomiting Oxycodone/Acetaminophen 2 tab 07/19/18 12:11 07/22/18 08:19 Percocet 5/325 PO 2 tab Q6H PRN Administration Pain, Moderate (4-6) Simethicone 80 mg 07/15/18 19:25 07/18/18 17:55 Mylicon PO 80 mg Q6H PRN Administration Gas pain Sodium Chloride 10 ml 06/24/18 22:00 07/22/18 08:22 Sodium Chloride Flush Syringe 10 Ml IV 10 ml BID MAURICIO Administration Sodium Chloride 10 ml 06/24/18 14:00 07/17/18 10:00 Sodium Chloride Flush Syringe 10 Ml IV 10 ml PRN PRN Administration LINE FLUSH Zolpidem Tartrate 5 mg 07/15/18 19:25 07/17/18 23:03 Ambien PO 5 mg QHS PRN Administration Sleep Nutrition/Malnutrition Assess - Dietary Evaluation Nutrition/Malnutrition Findings: Nutrition Notes Start: 06/30/18 16:45 Freq: Status: Active Protocol: Document 07/17/18 12:39 JANICE (Rec: 07/17/18 12:44 JANICE [facility]- [email or web address]) Nutrition Notes Initial or Follow up Reassessment Other Pertinent Diagnosis Perforated viscus s/p exp lap Current Diet CPN at 75ml/hr + GI soft + Ensure Enlive BID Labs/Tests Reviewed Pertinent Medications Reviewed Height 5 ft 3 in Weight 52.3 kg [place] Body Weight (kg) 52.27 BMI 20.4 Subjective/Other Information Pt reports good appetite and drinks ONS. Per surgeon, ok to D/C TPN. RN informed to decrease TPN rate by 50% for two hrs, then D/C. Burn Absent Trauma Absent #2 Nutrition Diagnosis Inadequate oral intake As Evidenced by Signs and Symptoms pt eating ~50% of meals and drinking ONS Diagnosis Progress(for reassessment Improved documentation) #1 Nutrition Diagnosis Increased nutrient needs ( specify in comment below) Diagnosis Progress(for reassessment Continues documentation) Is patient on ventilator? No Is Patient Ambulatory and/or Out of Bed Yes REE-([facility]-ambulatory/OOB) [ 1393.769 [id number]] Kcal/Kg value to use for calculation 30 Approximate Energy Requirements Using 1569 kcal/Kg Calculation Used for Recommendations Kcal/kg Additional Notes Pro needs 1.25-1.5g/k-78g /day Fluid needs 1ml/kcal Nutrition Intervention Change Diet Order: Continue GI soft diet Nutrition Support: D/C TPN Add Supplement/Snack (indicate name/kcal Ensure Enlive BID /protein ) Provides kCal: 700 Provides Protein (gm) 40 Goal #1 PO intake of meals plus ONS to meet at least 75% energy and pro needs Anticipated Discharge Needs: Continue Ensure Enlive 1-2 times daily Follow-Up By: 07/21/18 Additional Comments F/U: intakes, wt
[2018-07-23] MEDS: IMODIUM PO SCH ×4 (07:23→22:25)
--- NOTE | 2018-07-23 08:11 | Progress Note ---
Assessment and Plan Assessment and plan: Patient is 58 yo female with Nicotine Dependence, Severe Malnutrition present to ED for evaluation. Patient presented with abdominal pain for 1 week progressively worsening symptoms over the same time frame. Pt states that her abdominal pain is 10/10, generalized, non radiating, constant, worsened with movement. Pt denies NVD, ingestion of food/water from new or different sources, BRBPR, skin rash, or recent ill contacts. She was seen and evaluated in ED and found to have PSBO complicated by Bowel Perforation, SIRS, and severe malnutrition. Pt admitted to surgical floor. Surgery consulted in ED. Patient was taken to OR urgently. She had exploratory lap. surgeon found Sigmoid diverticulitis with perforation of distal sigmoid colon, purulent peritonitis. Peritoneal lavage and Posey's procedure was done on 06/24. Post-op was doing well, but on 06/28 developed acute resp failure was put on PBIPAP, transferred to ICU. Pulmonology consulted. she was given lasix, she improved BIPAP, discontinu ed, placed on HFNC Oxygen and now on oxygen by [facility]. 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 Patient was also noted to have right lower quadrant not appear viable. And was taken back for exploratory laparotomy. * s/p Exploratory Laparotomy, small bowel resection, partial colon resection, temporary abdominal closure with abthera vac 07/04/18, POD 1 and * Exploratory Laparotomy, Ezequiel's procedure 06/24/18 * Continues on full ventilatory support * IV heparin infusion, * Plan is to repeat scan in am and possible return to OR for evaluation of remaining bowel * PICC line placed for TPN. * Discussed extensively with patients brother, Sisters and Significant other. * Repeat surgery 07/07/18- 8 cm segment of necrotic small bowel resected * exploratory laparotomy, small bowel resection with primary anastamosis, right hemicolectomy with ileocolonic anastamosis, temporary closure of abdomen with abthera vac * Noted to have longer than previous thought Small bowel * Received 2 units PRBC in OR * All remaining colon viable, deplorable signals in SMA, middle colic artery Acute Mesenteric ischemia s/p Abdominal re-exploration and washout, cholecystectomy, primary closure of abdominal wall 07/10/18 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 Acute hypoxic respiratory failure -RESOLVED Severe enterocolitis Purulent peritonitis Sigmoid diverticulitis with perforation of distal sigmoid colon Sinus Tachycardia Hypokalemia, severe hyponatremia Secondary Coagulopathy Severe Moderate malnutrition Nicotine dependence Sepsis- On Cefepime, Fluconazole, flagyl leukocytosis, worsening, WBC 48.6 today Acute Mesenteric ischemia; with ischemic bowel/gangrene bowel Acute hypoxic respiratory failure;Requiring intubation, extubated Acute exacerbation of COPD Sepsis Plan INR 3.07 Yesterday, Adjust warfarin by Pharmacy Continues making adjustment and weaning down morphine pain control per Surgery Imodium po bid Continues to make good improvement Continue aggressive PT/OT Wean oxygen Pulmonary toliet. Tolerating Diet ID/SURGICAL INPUT NOTED Discussed with Surgery extensively DVT/GI prophy Complete Rehab anticipate discharge on Monday 07/24 History Interval history: Patient' seen and examined, Tolerating diet. Anxious about discharge in am. Hospitalist Physical - Physical exam Narrative exam: VITAL SIGNS: Reviewed. GENERAL: The patient appeared well nourished and normally developed, Vital signs as documented. HEAD: No signs of head trauma. EYES: Pupils are equal. Extraocular motions intact. EARS: Hearing grossly intact. MOUTH: Oropharynx is normal. NECK: No adenopathy, no JVD. CHEST: Chest with clear breath sounds bilaterally. No wheezes, rales, or rhonchi. CARDIAC: Regular rate and rhythm. S1 and S2, without murmurs, gallops, or rubs. VASCULAR: No Edema. Peripheral pulses normal and equal in all extremities. ABDOMEN: abdominal incision intact. Soft, non tender and non distended. No rebound or guarding, and no masses palpated. colostomy noted. High output. Hypoactive BS normal. MUSCULOSKELETAL: Good range of motion of all major joints. Extremities without clubbing, cyanosis or edema. NEUROLOGIC EXAM: Alert and oriented x 3 No focal sensory or strength deficits. Speech normal. Follows commands. PSYCHIATRIC: Mood normal. SKIN: colostomy pouch noted - Constitutional Vitals: Temp Pulse Resp BP Pulse Ox 98.0 F 117 H 18 95/58 95 07/23/18 04:32 07/23/18 04:32 07/23/18 04:32 07/23/18 04:32 07/23/18 04:32 General appearance: Present: no acute distress, well-nourished Results - Labs CBC & Chem 7: 07/17/18 03:18 07/17/18 03:18 Labs: Laboratory Last Values WBC 10.5 K/mm3 (4.5-11.0) 07/17/18 03:18 RBC 3.03 M/mm3 (3.65-5.03) L 07/17/18 03:18 Hgb 9.1 gm/dl (10.1-14.3) L 07/17/18 03:18 Hct 27.3 % (30.3-42.9) L 07/17/18 03:18 MCV 90 fl (79-97) 07/17/18 03:18 MCH 30 pg (28-32) 07/17/18 03:18 MCHC 34 % (30-34) 07/17/18 03:18 RDW 16.5 % (13.2-15.2) H 07/17/18 03:18 Plt Count 408 K/mm3 (140-440) 07/17/18 03:18 Lymph % (Auto) 14.4 % (13.4-35.0) 07/17/18 03:18 [place] % (Auto) 7.6 % (0.0-7.3) H 07/17/18 03:18 Eos % (Auto) 1.1 % (0.0-4.3) 07/17/18 03:18 Baso % (Auto) 0.3 % (0.0-1.8) 07/17/18 03:18 Lymph # 1.5 K/mm3 (1.2-5.4) 07/17/18 03:18 [place] # 0.8 K/mm3 (0.0-0.8) 07/17/18 03:18 Eos # 0.1 K/mm3 (0.0-0.4) 07/17/18 03:18 Baso # 0.0 K/mm3 (0.0-0.1) 07/17/18 03:18 Add Manual Diff Complete 07/11/18 05:13 Total Counted 100 07/11/18 05:13 Seg Neutrophils % 76.6 % (40.0-70.0) H 07/17/18 03:18 Seg Neuts % (Manual) 71.0 % (40.0-70.0) H 07/11/18 05:13 10.0 % 07/11/18 05:13 10.0 % (13.4-35.0) L 07/11/18 05:13 Reactive Lymphs % (Man) 0 % 07/11/18 05:13 9.0 % (0.0-7.3) H 07/11/18 05:13 0 % (0.0-4.3) 07/11/18 05:13 0 % (0.0-1.8) 07/11/18 05:13 0 % 07/11/18 05:13 0 % 07/11/18 05:13 0 % 07/11/18 05:13 0 % 07/11/18 05:13 Nucleated RBC % Not Reportable 07/11/18 05:13 Seg Neutrophils # 8.0 K/mm3 (1.8-7.7) H 07/17/18 03:18 Seg Neutrophils # Man 12.6 K/mm3 (1.8-7.7) H 07/11/18 05:13 Band Neutrophils # 1.8 K/mm3 07/11/18 05:13 1.8 K/mm3 (1.2-5.4) 07/11/18 05:13 Abs React Lymphs (Man) 0.0 K/mm3 07/11/18 05:13 1.6 K/mm3 (0.0-0.8) H 07/11/18 05:13 0.0 K/mm3 (0.0-0.4) 07/11/18 05:13 0.0 K/mm3 (0.0-0.1) 07/11/18 05:13 0.0 K/mm3 07/11/18 05:13 0.0 K/mm3 07/11/18 05:13 0.0 K/mm3 07/11/18 05:13 Blast Cells # 0.0 K/mm3 07/11/18 05:13 WBC Morphology Not Reportable 07/11/18 05:13 Hypersegmented Neuts Not Reportable 07/11/18 05:13 Hyposegmented Neuts Not Reportable 07/11/18 05:13 Hypogranular Neuts Not Reportable 07/11/18 05:13 Not Reportable 07/11/18 05:13 Not Reportable 07/11/18 05:13 Not Reportable 07/11/18 05:13 Not Reportable 07/11/18 05:13 Not Reportable 07/11/18 05:13 Not Reportable 07/11/18 05:13 Appears increased 07/11/18 05:13 Not Reportable 07/11/18 05:13 Plt Clumps, EDTA Not Reportable 07/11/18 05:13 Not Reportable 07/11/18 05:13 Not Reportable 07/11/18 05:13 Not Reportable 07/11/18 05:13 Plt Morphology Comment Not Reportable 07/11/18 05:13 RBC Morphology Not Reportable 07/11/18 05:13 Dimorphic RBCs Not Reportable 07/11/18 05:13 1+ 07/11/18 05:13 Not Reportable 07/11/18 05:13 Not Reportable 07/11/18 05:13 1+ 07/11/18 05:13 Not Reportable 07/11/18 05:13 Not Reportable 07/11/18 05:13 Not Reportable 07/11/18 05:13 Not Reportable 07/11/18 05:13 Not Reportable 07/11/18 05:13 Rare 07/11/18 05:13 Not Reportable 07/11/18 05:13 Not Reportable 07/11/18 05:13 Few 07/11/18 05:13 Not Reportable 07/11/18 05:13 Not Reportable 07/11/18 05:13 Not Reportable 07/11/18 05:13 Not Reportable 07/11/18 05:13 Not Reportable 07/11/18 05:13 Not Reportable 07/11/18 05:13 Not Reportable 07/11/18 05:13 Acanthocytes (Spur) Not Reportable 07/11/18 05:13 Rouleaux Not Reportable 07/11/18 05:13 Not Reportable 07/11/18 05:13 Not Reportable 07/11/18 05:13 Not Reportable 07/11/18 05:13 Not Reportable 07/11/18 05:13 Hem Pathologist Commnt No 07/11/18 05:13 PT 31.2 Sec. (12.2-14.9) H 07/22/18 05:10 INR 3.07 (0.87-1.13) H 07/22/18 05:10 APTT 42.2 Sec. (24.2-36.6) H 07/07/18 15:20 Heparin Anti-Xa Level 0.42 U.I./ml (0.3-0.7) 07/14/18 21:32 POC ABG pH 7.431 (7.35-7.45) 07/10/18 04:32 POC ABG pCO2 48.5 (35-45) H 07/10/18 04:32 POC ABG pO2 104 (80-105) 07/10/18 04:32 POC ABG HCO3 32.2 (22-26 mml/L) 07/10/18 04:32 POC ABG Total CO2 34 (23-27mmol/L) 07/10/18 04:32 POC ABG O2 Sat 98 07/10/18 04:32 POC ABG Base Excess 8 ((-2) - (+3)mmol/L) 07/10/18 04:32 28 % 07/10/18 04:32 Sodium 140 mmol/L (137-145) 07/17/18 03:18 Potassium 4.1 mmol/L (3.6-5.0) 07/17/18 03:18 Chloride 105.2 mmol/L (98-107) 07/17/18 03:18 Carbon Dioxide 27 mmol/L (22-30) 07/17/18 03:18 12 mmol/L 07/17/18 03:18 BUN 21 mg/dL (7-17) H 07/17/18 03:18 < 0.2 mg/dL (0.7-1.2) L 07/17/18 03:18 Estimated GFR > 60 ml/min 07/17/18 03:18 105 % 07/17/18 03:18 Glucose 140 mg/dL (65-100) H 07/17/18 03:18 POC Glucose 135 (70-105) H 07/17/18 16:18 Lactic Acid 1.40 mmol/L (0.7-2.0) 07/04/18 21:11 Calcium 8.5 mg/dL (8.4-10.2) 07/17/18 03:18 Phosphorus 3.60 mg/dL (2.5-4.5) 07/16/18 04:28 Magnesium 2.10 mg/dL (1.7-2.3) 07/16/18 04:28 Iron 40 ug/dL (37-170) 07/07/18 11:50 TIBC 94 mcg/dL (250-450) L 07/07/18 11:50 377.8 ng/mL (13.0-400.0) 07/07/18 11:50 0.50 mg/dL (0.1-1.2) 07/17/18 03:18 < 0.2 mg/dL (0-0.2) 07/12/18 04:16 0.2 mg/dL 07/12/18 04:16 AST 31 units/L (5-40) 07/17/18 03:18 ALT 48 units/L (7-56) 07/17/18 03:18 337 units/L (35-129) H 07/17/18 03:18 13.20 mg/dL (0.00-1.30) H 07/03/18 11:07 NT-Pro-B Natriuret Pep 1572 pg/mL (0-900) H 06/28/18 09:56 6.2 g/dL (6.3-8.2) L 07/17/18 03:18 2.4 g/dL (3.9-5) L 07/17/18 03:18 0.6 % 07/17/18 03:18 0.191 g/L (0.200-0.400) L 07/19/18 05:20 Triglycerides 127 mg/dL (2-149) 07/07/18 02:14 8 units/L (13-60) L 06/24/18 11:19 Vitamin B12 924.8 pg/mL (211-911) H 07/07/18 11:50 4.92 ng/mL (7.3-26.0) L 07/07/18 11:50 Na (Yellow) 07/03/18 Unknown Hazy (Clear) 07/03/18 Unknown 6.0 (5.0-7.0) 07/03/18 Unknown Ur Specific [place] 1.023 (1.003-1.030) 07/03/18 Unknown <15 mg/dl mg/dL (Negative) 07/03/18 Unknown Neg mg/dL (Negative) 07/03/18 Unknown Neg mg/dL (Negative) 07/03/18 Unknown Sm (Negative) 07/03/18 Unknown Neg (Negative) 07/03/18 Unknown Neg (Negative) 07/03/18 Unknown < 2.0 mg/dL (<2.0) 07/03/18 Unknown Ur Leukocyte Esterase Neg (Negative) 07/03/18 Unknown 1.0 /HPF (0.0-6.0) 07/03/18 Unknown 3.0 /HPF (0.0-6.0) 07/03/18 Unknown U Epithel Cells (Auto) 7.0 /HPF (0-13.0) 07/03/18 Unknown 1+ /HPF (Negative) 06/24/18 13:00 Few /HPF 07/03/18 Unknown Vancomycin Trough 38.9 ug/mL (5.0-20.0) H 07/05/18 10:57 Blood Type O POSITIVE 07/04/18 17:54 Antibody Screen TNR 07/04/18 17:54 FADY Antibody Screen Negative 07/04/18 17:54 Crossmatch See Detail 07/04/18 17:54 Crossmatch See Detail 07/04/18 17:54 Active Medications - Current Medications Current Medications: Generic Name Dose Route Start Last Admin Trade Name Freq PRN Reason Stop Dose Admin Albuterol 2.5 mg 07/02/18 07:44 Proventil IH Q4HRT PRN Shortness Of Breath Arformoterol Tartrate 15 mcg 07/12/18 20:00 07/22/18 21:32 Brovana Nebu IH 15 mcg Q12HRT MAURICIO Administration Budesonide 0.5 mg 07/02/18 20:00 07/22/18 21:32 Pulmicort IH 0.5 mg Q12HRT MAURICIO Administration Famotidine 20 mg 07/21/18 22:00 07/22/18 21:54 Pepcid PO 20 mg BID MAURICIO Administration Hydrophilic Ointment 1 applic 07/04/18 18:23 07/21/18 17:19 Vaseline Lip Therapy TP 1 applic Q2HR PRN Administration Dry Lips Loperamide HCl 2 mg 07/20/18 11:00 07/22/18 23:21 Imodium PO 2 mg Q6H MAURICIO Administration Metoprolol Tartrate 12.5 mg 07/14/18 22:00 07/22/18 21:55 Lopressor PO 12.5 mg BID MAURICIO Administration Morphine Sulfate 2 mg 07/20/18 12:30 07/22/18 19:16 Morphine IV 2 mg Q4H PRN Administration Pain , Severe (7-10) Multi-Ingred Cream/Lotion/Oil/Oint 1 applic 07/04/18 18:23 Artificial Tears Ophth Oint OU Q4HR PRN Dry Eye(s) Ondansetron HCl 4 mg 06/24/18 14:00 07/21/18 17:06 Zofran IV 4 mg Q8H PRN Administration Nausea And Vomiting Oxycodone/Acetaminophen 2 tab 07/19/18 12:11 07/22/18 23:21 Percocet 5/325 PO 2 tab Q6H PRN Administration Pain, Moderate (4-6) Simethicone 80 mg 07/15/18 19:25 07/18/18 17:55 Mylicon PO 80 mg Q6H PRN Administration Gas pain Sodium Chloride 10 ml 06/24/18 22:00 07/22/18 21:59 Sodium Chloride Flush Syringe 10 Ml IV 10 ml BID MAURICIO Administration Sodium Chloride 10 ml 06/24/18 14:00 07/17/18 10:00 Sodium Chloride Flush Syringe 10 Ml IV 10 ml PRN PRN Administration LINE FLUSH Zolpidem Tartrate 5 mg 07/15/18 19:25 07/17/18 23:03 Ambien PO 5 mg QHS PRN Administration Sleep Nutrition/Malnutrition Assess - Dietary Evaluation Nutrition/Malnutrition Findings: Nutrition Notes Start: 06/30/18 16:45 Freq: Status: Active Protocol: Document 07/17/18 12:39 JANICE (Rec: 07/17/18 12:44 JANICE [email or web address]) Nutrition Notes Initial or Follow up Reassessment Other Pertinent Diagnosis Perforated viscus s/p exp lap Current Diet CPN at 75ml/hr + GI soft + Ensure Enlive BID Labs/Tests Reviewed Pertinent Medications Reviewed Height 5 ft 3 in Weight 52.3 kg [place] Body Weight (kg) 52.27 BMI 20.4 Subjective/Other Information Pt reports good appetite and drinks ONS. Per surgeon, ok to D/C TPN. RN informed to decrease TPN rate by 50% for two hrs, then D/C. Burn Absent Trauma Absent #2 Nutrition Diagnosis Inadequate oral intake As Evidenced by Signs and Symptoms pt eating ~50% of meals and drinking ONS Diagnosis Progress(for reassessment Improved documentation) #1 Nutrition Diagnosis Increased nutrient needs ( specify in comment below) Diagnosis Progress(for reassessment Continues documentation) Is patient on ventilator? No Is Patient Ambulatory and/or Out of Bed Yes REE-(Wilkin-St. Jeor-ambulatory/OOB) [ 1393.769 NUTR.[id number]] Kcal/Kg value to use for calculation 30 Approximate Energy Requirements Using 1569 kcal/Kg Calculation Used for Recommendations Kcal/kg Additional Notes Pro needs 1.25-1.5g/k-78g /day Fluid needs 1ml/kcal Nutrition Intervention Change Diet Order: Continue GI soft diet Nutrition Support: D/C TPN Add Supplement/Snack (indicate name/kcal Ensure Enlive BID /protein ) Provides kCal: 700 Provides Protein (gm) 40 Goal #1 PO intake of meals plus ONS to meet at least 75% energy and pro needs Anticipated Discharge Needs: Continue Ensure Enlive 1-2 times daily Follow-Up By: 07/21/18 Additional Comments F/U: intakes, wt
[2018-07-23] MEDS: MORPHINE IV PRN ×3 (08:51→22:18)
[2018-07-23] MEDS: PULMICORT IH SCH ×2 (11:05→21:56)
[2018-07-23] MEDS: BROVANA NEBU IH SCH ×2 (11:05→21:56)
[2018-07-23] MEDS: LOPRESSOR PO SCH ×2 (11:13→22:18)
[2018-07-23] MEDS: PEPCID PO SCH ×2 (11:15→22:18)
[2018-07-23] MEDS: PERCOCET 5/325 PO PRN (11:16)
[2018-07-23] MEDS: SODIUM CHLORIDE FLUSH SYRINGE 10 ML IV SCH ×2 (11:16→22:19)
[2018-07-23 12:24] LABS: INR 2.55 (0.87-1.13)
--- NOTE | 2018-07-23 13:20 | Progress Note ---
Assessment and Plan (1) Perforated viscus Current Visit: Yes Status: Acute Plan to address problem: 58 yo F s/p 1) Abdominal re-exploration and washout, cholecystectomy, primary closure of abdominal wall 07/10/18, POD 11 2) exploratory laparotomy, small bowel resection with primary anastamosis, right hemicolectomy with ileocolonic anastamosis, temporary closure of abdomen with abthera vac 07/07/18 3) Exploratory laparotomy, small bowel resection, partial colon resection, temporary abdominal closure with abthera vac 07/04/18; and 4) Exploratory laparotomy, Ezequiel's procedure 06/24/18 Problem list: 1. 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 Respiratory failure 5. COPD Plan: 1. Diet as tolerated 2. prn PO pain control - percocet and IV morphine added for breakthrough pain 3. incentive spirometry/pulm toilet 4. c/w anticoagulation per vascular team 5. GI ppx 6. continue OOB/PT 7. imodium QID and banana flakes as outpatient 8. Patient completing rehab tomorrow, anticipate dc in next 24 hours. OK to dc from surgery standpoint. Patient advised to follow up in surgery office in 1 week to remove paris. Please call with questions. Subjective Date of service: 07/23/18 Narrative: Pt seen and examined. States she feels great and is ready to go home. No f/c, cp, sob. Tolerating a diet. Able to care for ostomy and empty/change bag. Objective Vital Signs - 12hr 07/23/18 07/23/18 07/23/18 04:32 08:00 09:20 Temperature 98.0 F 97.7 F Pulse Rate 117 H 111 H Pulse Rate [ From Monitor] Pulse Rate [ 97 H Posterior] Respiratory 18 Rate Respiratory 18 Rate [Posterior ] Blood Pressure 95/58 120/72 O2 Sat by Pulse 95 96 Oximetry 07/23/18 07/23/18 09:35 11:10 Temperature Pulse Rate Pulse Rate [ 105 H From Monitor] Pulse Rate [ 97 H Posterior] Respiratory Rate Respiratory 18 Rate [Posterior ] Blood Pressure O2 Sat by Pulse Oximetry - General physical appearance Narrative Exam: Gen: AAOx3. NAD CV: s1, S2+ Resp: even and unlabored Abd: soft, NT, ND. dressing c/d/i. Ostomy with yellow loose stool and gas in bag Ext: no c/c/e - Labs 07/17/18 03:18 07/17/18 03:18
[2018-07-23] MEDS ORDERED: COUMADIN PO SCH (17:00)
[2018-07-24 06:07] LABS: INR 2.45 (0.87-1.13)
[2018-07-24] MEDS: IMODIUM PO SCH ×2 (07:34→11:00)
[2018-07-24] MEDS: BROVANA NEBU IH SCH (07:55)
[2018-07-24] MEDS: PULMICORT IH SCH (07:55)
[2018-07-24] MEDS: PERCOCET 5/325 PO PRN ×2 (08:49→15:46)
[2018-07-24] MEDS: LOPRESSOR PO SCH (09:00)
[2018-07-24] MEDS: PEPCID PO SCH (09:00)
[2018-07-24] MEDS: SODIUM CHLORIDE FLUSH SYRINGE 10 ML IV SCH (09:01)
--- NOTE | 2018-07-24 12:41 | Discharge Summary ---
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 Consult to Wound/ET Nurse [CONS] Routine Reason For Exam: wound eval 06/25/18 13:52 Physical Therapy Evaluation and Treat [CONS] Routine Comment: Reason For Exam: post op 06/26/18 11:51 Consult to Physician [CONS] Routine Comment: Consulting Provider: JOSEFINA ROTHMAN Physician Instructions: Reason For Exam: purulent peritonitis 06/28/18 07:53 Consult to Physician [CONS] Routine Comment: Consulting Provider: EVA SALAS Physician Instructions: Reason For Exam: Acute respiratory failure 07/03/18 09:10 Physical Therapy Evaluation and Treat [CONS] Routine Comment: Reason For Exam: post-op, weakness 07/03/18 15:31 Consult to Physician [CONS] Routine Comment: Consulting Provider: SHIVANI PINK Physician Instructions: Reason For Exam: intraabdominal abscess post op perforated divertic 07/04/18 18:23 Consult to Dietitian/Nutrition [CONS] Routine Physician Instructions: Reason For Exam: Reason for Consult: Evaluate nutritional intake 07/04/18 18:41 Consult to Physician [CONS] Routine Comment: Dr. Pink already saw patient Consulting Provider: SHIVANI PINK Physician Instructions: Reason For Exam: SMA, SMV thrombus, aortic thrombus 07/05/18 09:28 Consult to PICC Line RN [CONS] Routine Reason For Exam: TPN Type Line:: PICC 07/05/18 15:05 Consult to Dietitian/Nutrition [CONS] Routine Physician Instructions: Reason For Exam: Reason for Consult: tpn 07/06/18 11:41 Consult to Physician [CONS] Routine Comment: Consulting Provider: ENMANUEL NIETO Physician Instructions: Reason For Exam: HIT 07/11/18 09:59 Speech Therapy Evaluation and Treat [CONS] Routine Reason For Exam: recent extubation 07/11/18 10:05 Physical Therapy Evaluation and Treat [CONS] Routine Comment: Reason For Exam: deconditioning 07/17/18 09:00 Consult to Wound/ET Nurse [CONS] Routine Reason For Exam: colostomy Primary care physician: GLOBE TESTER Hospitalization Reason for admission: abdominal pain Condition: Serious Hospital course: Patient is 58 yo female with Nicotine Dependence, Severe Malnutrition present to ED for evaluation. Patient presented with abdominal pain for 1 week progressively worsening symptoms over the same time frame. Pt states that her abdominal pain is 10/10, generalized, non radiating, constant, worsened with movement. Pt denies NVD, ingestion of food/water from new or different sources, BRBPR, skin rash, or recent ill contacts. She was seen and evaluated in ED and found to have PSBO complicated by Bowel Perforation, SIRS, and severe malnutrition. Pt admitted to surgical floor. Surgery consulted in ED. Patient was taken to OR urgently. She had exploratory lap. surgeon found Sigmoid diverticulitis with perforation of distal sigmoid colon, purulent peritonitis. Peritoneal lavage and Posey's procedure was done on 06/24. Post-op was doing well, but on 06/28 developed acute resp failure was put on PBIPAP, transferred to ICU. Pulmonology consulted. she was given lasix, she improved BIPAP, discontinued, placed on HFNC Oxygen and now on oxygen by RI. 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 Patient was also noted to have right lower quadrant not appear viable. And was taken back for exploratory laparotomy. * Repeat surgery 07/07/18- 8 cm segment of necrotic small bowel resected * exploratory laparotomy, small bowel resection with primary anastamosis, right hemicolectomy with ileocolonic anastamosis, temporary closure of abdomen with abthera vac * Noted to have longer than previous thought Small bowel * Received 2 units PRBC in OR * All remaining colon viable, deplorable signals in SMA, middle colic artery * Patient has had a tremendous recovery and now ambulating without difficulty * colostomy management was provided * Imodium was prescribed Procedures perfomed 1) Abdominal re-exploration and washout, cholecystectomy, primary closure of abdominal wall 07/10/18, POD 11 2) exploratory laparotomy, small bowel resection with primary anastamosis, right hemicolectomy with ileocolonic anastamosis, temporary closure of abdomen with abthera vac 07/07/18 3) Exploratory laparotomy, small bowel resection, partial colon resection, temporary abdominal closure with abthera vac 07/04/18; and 4) Exploratory laparotomy, Ezequiel's procedure 06/24/18 Discharge Diagnosis Acute Mesenteric ischemia s/p Abdominal re-exploration and washout, cholecystectomy, primary closure of abdominal wall 07/10/18 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 Acute hypoxic respiratory failure -RESOLVED Severe enterocolitis Purulent peritonitis Sigmoid diverticulitis with perforation of distal sigmoid colon Sinus Tachycardia Hypokalemia, severe hyponatremia Secondary Coagulopathy Severe Moderate malnutrition Nicotine dependence Sepsis leukocytosis, Acute Mesenteric ischemia; with ischemic bowel/gangrene bowel Acute exacerbation of COPD Sepsis Disposition: DC/TX-06 HOME UNDER HOME [facility] Time spent for discharge: 35 mins Core Measure Documentation - Palliative Care Palliative Care/ Comfort Measures: Not Applicable - Core Measures Any of the following diagnoses?: none Exam - Physical Exam Narrative exam: VITAL SIGNS: Reviewed. GENERAL: The patient appeared well nourished and normally developed, Vital signs as documented. HEAD: No signs of head trauma. EYES: Pupils are equal. Extraocular motions intact. EARS: Hearing grossly intact. MOUTH: Oropharynx is normal. NECK: No adenopathy, no JVD. CHEST: Chest with clear breath sounds bilaterally. No wheezes, rales, or rhonchi. CARDIAC: Regular rate and rhythm. S1 and S2, without murmurs, gallops, or rubs. VASCULAR: No Edema. Peripheral pulses normal and equal in all extremities. ABDOMEN: abdominal incision intact. Soft, non tender and non distended. No rebound or guarding, and no masses palpated. colostomy noted. High output. Hypoactive BS normal. MUSCULOSKELETAL: Good range of motion of all major joints. Extremities without clubbing, cyanosis or edema. NEUROLOGIC EXAM: Alert and oriented x 3 No focal sensory or strength deficits. Speech normal. Follows commands. PSYCHIATRIC: Mood normal. SKIN: colostomy pouch noted - Constitutional Vitals: Temp Pulse Resp BP Pulse Ox 97.9 F 124 H 18 108/63 98 07/24/18 08:00 07/24/18 08:12 07/24/18 08:12 07/24/18 08:00 07/24/18 08:13 Plan Activity: advance as tolerated, fall precautions Diet: low fat, per dietitian instruction Wound: per your surgeon's advice Special Instructions: record daily BP diary Additional Instructions: coumadin check with primary care doctor in 2-3 days Follow up with: OLGA FELDMAN DO [Staff Physician] - 7 Days PRIMARY CARE, [Primary Care Provider] - 7 Days Forms: Warfarin Discharge Instruction Prescriptions: Warfarin [Coumadin] 1 mg PO DAILY@1700 #30 tablet Loperamide [Imodium] 2 mg PO Q6H 30 Days #120 capsule Metoprolol [Lopressor TAB] 12.5 mg PO BID #30 tablet oxyCODONE /ACETAMINOPHEN [Percocet 5/325 mg] 2 tab PO Q6H PRN #14 tablet PRN Reason: Pain, Moderate (4-6) ALBUTEROL Inhaler (OR & NICU) [ProAir HFA Inhaler] 2 puff IH QID PRN 30 Days inhalation PRN Reason: Shortness Of Breath Simethicone 80 mg PO BID #30 tab.chew Budesonide/Formoterol Fumarate [Symbicort 160-4.5 Mcg Inhaler] 10.2 gm IH BID 30 Days hfa.aer.ad
[2018-07-24 13:41] VITALS: BP 106/60
== END 2018-07-24 16:35 | disposition home health service (06) | DRG 853 ==
LOC: ED 10:36 → 3A 14:00 → 3B-SURG 16:52 → CC1 06-28 12:16 → 3B-SURG 07-01 20:04 → CC1 07-04 19:29 → 3B-SURG 07-12 16:30
PROVIDERS: ADMIT Internal Medicine; ATTEND Internal Medicine
PROC: 0DBN0ZZ Excision of Sigmoid Colon, Open Approach (ICD-10-PCS; principal; 2018-06-24)
PROC: 0D1N0Z4 Bypass Sigmoid Colon to Cutaneous, Open Approach (ICD-10-PCS; 2018-06-24)
PROC: 3E1M38Z Irrigation of Peritoneal Cavity using Irrigating Substance, Percutaneous Approach (ICD-10-PCS; 2018-06-24)
PROC: 4A033R1 Measurement of Arterial Saturation, Peripheral, Percutaneous Approach (ICD-10-PCS; 2018-06-26)
PROC: 5A09357 Assistance with Respiratory Ventilation, Less than 24 Consecutive Hours, Continuous Positive Airway Pressure (ICD-10-PCS; 2018-06-28)
PROC: 5A09357 Assistance with Respiratory Ventilation, Less than 24 Consecutive Hours, Continuous Positive Airway Pressure (ICD-10-PCS; 2018-06-29)
PROC: 5A09357 Assistance with Respiratory Ventilation, Less than 24 Consecutive Hours, Continuous Positive Airway Pressure (ICD-10-PCS; 2018-06-30)
PROC: 5A1955Z Respiratory Ventilation, Greater than 96 Consecutive Hours (ICD-10-PCS; 2018-07-04)
PROC: 0BH17EZ Insertion of Endotracheal Airway into Trachea, Via Natural or Artificial Opening (ICD-10-PCS; 2018-07-04)
PROC: 0DB80ZZ Excision of Small Intestine, Open Approach (ICD-10-PCS; 2018-07-04)
PROC: 02HV33Z Insertion of Infusion Device into Superior Vena Cava, Percutaneous Approach (ICD-10-PCS; 2018-07-05)
PROC: 30233N1 Transfusion of Nonautologous Red Blood Cells into Peripheral Vein, Percutaneous Approach (ICD-10-PCS; 2018-07-07)
PROC: 0DB80ZZ Excision of Small Intestine, Open Approach (ICD-10-PCS; 2018-07-07)
PROC: 0DTF0ZZ Resection of Right Large Intestine, Open Approach (ICD-10-PCS; 2018-07-07)
PROC: 3E0436Z Introduction of Nutritional Substance into Central Vein, Percutaneous Approach (ICD-10-PCS; 2018-07-07)
PROC: 0FT40ZZ Resection of Gallbladder, Open Approach (ICD-10-PCS; 2018-07-10)
PROC: 0BP1XDZ Removal of Intraluminal Device from Trachea, External Approach (ICD-10-PCS; 2018-07-11)
DX: A41.9 Sepsis, unspecified organism (principal); E43 Unspecified severe protein-calorie malnutrition; K65.0 Generalized (acute) peritonitis; J18.9 Pneumonia, unspecified organism; I81 Portal vein thrombosis; K55.029 Acute infarction of small intestine, extent unspecified; K55.059 Acute (reversible) ischemia of intestine, part and extent unspecified; J96.01 Acute respiratory failure with hypoxia; K57.20 Diverticulitis of large intestine with perforation and abscess without bleeding; K56.600 Partial intestinal obstruction, unspecified as to cause; F17.213 Nicotine dependence, cigarettes, with withdrawal; J44.0 Chronic obstructive pulmonary disease with (acute) lower respiratory infection; I74.10 Embolism and thrombosis of unspecified parts of aorta; J44.1 Chronic obstructive pulmonary disease with (acute) exacerbation; D68.8 Other specified coagulation defects; R31.9 Hematuria, unspecified; F17.210 Nicotine dependence, cigarettes, uncomplicated; E87.6 Hypokalemia; K52.9 Noninfective gastroenteritis and colitis, unspecified; E87.70 Fluid overload, unspecified; R65.20 Severe sepsis without septic shock; E86.0 Dehydration; Z68.20 Body mass index [BMI] 20.0-20.9, adult
CPT/HCPCS: 36415; 36600; 71045; 71260; 71275; 74018; 74174; 74177; 80048; 80053; 80076; 80202; 81001; 82140; 82607; 82728; 82747; 82803; 82962; 83550; 83690; 83735; 83880; 84100; 84132; 84134; 84478; 85007; 85014; 85018; 85025; 85027; 85049; 85520; 85610; 85730; 86140; 86850; 86900; 86901; 86920; 87040; 87070; 87205; 88304; 88307; 93005; 93010; 93306; 94002; 94003; 94640; 94660; 94760; 99406; G0378; C9113; J0171; J0330; J0692; J0696; J1100; J1170; J1450; J1644; J1650; J1940; J1956; J2001; J2060; J2250; J2270; J2370; J2405; J2543; J2704; J2710; J2920; J2930; J3010; J3370; J3475; J3480; J7030; J7040; J7050; J7120; P9016; P9047; Q9967

== ENCOUNTER 2018-08-08 16:05 | Inpatient (IN) | payer OTHER, SELFPAY ==
[2018-08-08] MEDS ORDERED: NACL 0.9% 1000 ML 1,000 ML ONE (16:26)
[2018-08-08] MEDS ORDERED: NACL 0.9% 500 ML 500 ML IV ONE (16:51)
[2018-08-08] MEDS ORDERED: SUBLIMAZE IV ONE (16:53)
[2018-08-08] MEDS ORDERED: NACL 0.9% 1000 ML 1,000 ML IV ONE (16:53)
[2018-08-08] MEDS ORDERED: NACL 0.9% 1000 ML 2,000 ML IV ONE (16:53)
--- NOTE | 2018-08-08 16:55 | Emergency Department Report ---
ED General Adult HPI - General Chief complaint: Dizziness Stated complaint: HYPOTENSION Time Seen by Provider: 08/08/18 16:28 Source: patient, RN notes reviewed, old records reviewed Mode of arrival: Stretcher Limitations: No Limitations - History of Present Illness Initial comments: This is a 58-year-old female. The patient is not known to this provider previously. Arriola has extensive past medical history, including nicotine dependence, malnutrition, admitted to this hospital extensively last month, found to have partial small bowel obstruction, bowel perforation, severe malnutrition, seen by general surgery, had exploratory laparotomy, found to have perforated sigmoid diverticulitis, purulent peritonitis, had peritoneal lavage performed, and Posey's procedure performed. Postoperatively was doing well, then developed respiratory failure requiring BiPAP, transferred to the intensive care unit, and her respiratory status improved. Patient was then found to have S and a thrombosis, and possible right SMV thrombosis. She had repeat surgery performed, and had a repeat segment of necrotic small bowel resected, had a small bowel resection with anastomosis, hemicolectomy, and ileocolonic anastomosis, and wound VAC. Patient reportedly made an impressive recovery, and was walking without difficulty with her colostomy. The patient now presents with a complaint of malaise, fatigue, lightheadedness, and generalized weakness. She is found to be tachycardic and hypotensive initially. She has right lower quadrant pain. She has mild dizziness. Patient was sent in from a local clinic for evaluation of abnormal vital signs. Her katerina n is aching, throbbing, increases with palpation and it decreases with rest. It does not radiate anywhere. -: Gradual Location: abdomen Quality: aching Improves with: rest Worsens with: movement - Related Data Previous Rx's Medication Instructions Recorded Last Taken Type Loperamide [Imodium] 2 mg PO Q6H 30 Days #120 capsule 07/23/18 Unknown Rx ALBUTEROL Inhaler (OR & NICU) 2 puff IH QID PRN 30 Days 07/24/18 Unknown Rx [ProAir HFA Inhaler] inhalation Budesonide/Formoterol Fumarate 10.2 gm IH BID 30 Days hfa.aer.ad 07/24/18 Unknown Rx [Symbicort 160-4.5 Mcg Inhaler] Metoprolol [Lopressor TAB] 12.5 mg PO BID #30 tablet 07/24/18 Unknown Rx Simethicone 80 mg PO BID #30 tab.chew 07/24/18 Unknown Rx Warfarin [Coumadin] 1 mg PO DAILY@1700 #30 tablet 07/24/18 Unknown Rx oxyCODONE /ACETAMINOPHEN [Percocet 2 tab PO Q6H PRN #14 tablet 07/24/18 Unknown Rx 5/325 mg] Allergies Allergy/AdvReac Type Severity Reaction Status Date / Time No Known Allergies Allergy Unverified 06/24/18 10:41 ED Review of Systems ROS: Stated complaint: HYPOTENSION Other details as noted in HPI Constitutional: malaise. denies: fever Eyes: denies: eye discharge ENT: denies: congestion Cardiovascular: other (lightheadedness, dizziness, near syncope) Gastrointestinal: abdominal pain Genitourinary: denies: dysuria Musculoskeletal: denies: myalgia Skin: denies: lesions Neurological: weakness Psychiatric: anxiety ED Past Medical Hx - Past Medical History Previous Medical History?: Yes Hx Hypertension: Yes (no antihypertensives as outpatient) Hx Heart Attack/AMI: No Hx Congestive Heart Failure: No Hx Deep Vein Thrombosis: No Hx Liver Disease: No Hx Renal Disease: No Hx Asthma: No (although suspected pulmonary disease d/t smoking hx.) Hx COPD: No (see above, 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 ) - Surgical History Past Surgical History?: Yes Hx Pacemaker: No Hx Internal Defibrillator: No Additional Surgical History: colostomy, abd surgery X 4 - Social History Smoking Status: Former Smoker Substance Use Type: None - Medications Home Medications: Home Medications Medication Instructions Recorded Confirmed Last Taken Type Loperamide [Imodium] 2 mg PO Q6H 30 Days #120 capsule 07/23/18 Unknown Rx ALBUTEROL Inhaler (OR & NICU) 2 puff IH QID PRN 30 Days 07/24/18 Unknown Rx [ProAir HFA Inhaler] inhalation Budesonide/Formoterol Fumarate 10.2 gm IH BID 30 Days hfa.aer.ad 07/24/18 Un known Rx [Symbicort 160-4.5 Mcg Inhaler] Metoprolol [Lopressor TAB] 12.5 mg PO BID #30 tablet 07/24/18 Unknown Rx Simethicone 80 mg PO BID #30 tab.chew 07/24/18 Unknown Rx Warfarin [Coumadin] 1 mg PO DAILY@1700 #30 tablet 07/24/18 Unknown Rx oxyCODONE /ACETAMINOPHEN [Percocet 2 tab PO Q6H PRN #14 tablet 07/24/18 Unknown Rx 5/325 mg] ED Physical Exam - General Limitations: No Limitations General appearance: alert, anxious, cachectic - Head Head exam: Present: atraumatic, normocephalic - Eye Eye exam: Present: normal appearance, EOMI. Absent: nystagmus - ENT ENT exam: Present: mucous membranes dry - Neck Neck exam: Present: normal inspection, full ROM. Absent: tenderness, meningismus - Respiratory Respiratory exam: Present: normal lung sounds bilaterally. Absent: respiratory distress - Cardiovascular Cardiovascular Exam: Present: normal rhythm, tachycardia, normal heart sounds. Absent: systolic murmur, diastolic murmur, rubs, gallop - GI/Abdominal GI/Abdominal exam: Present: soft, tenderness, other (there is right lower quadrant tenderness noted. There is a colostomy noted in the left lower quadrant.). Absent: distended, guarding, rebound, rigid, pulsatile mass - Rectal Rectal exam: Present: other (there is a deep Venous sacral wounds noted, with no redness, pus or streaking. Chaperoned by nurse Nakita Gibson) - Extremities Exam Extremities exam: Present: normal inspection, full ROM, other (2+ pulses noted in the bilateral upper, lower extremities. Compartments soft. No long bony tenderness. The pelvis is stable.). Absent: calf tenderness - Back Exam Back exam: Present: normal inspection, full ROM. Absent: tenderness, CVA tenderness (R), CVA tenderness (L), paraspinal tenderness, vertebral tenderness - Neurological Exam Neurological exam: Present: alert, oriented X3, other (Extraocular movements intact. Tongue midline. No facial droop. Facial sensation intact to light touch in the V1, V2, V3 distribution bilaterally. 5 and 5 strength in 4 extremities.. Sensation is intact to light touch in 4 extremities.). Absent: motor sensory deficit - Psychiatric Psychiatric exam: Present: anxious - Skin Skin exam: Present: warm, dry, intact, normal color. Absent: rash ED Course Vital Signs 08/08/18 08/08/18 08/08/18 16:16 16:17 16:30 Temperature 97.9 F Pulse Rate 132 H 136 H 117 H Respiratory 21 18 18 Rate Blood Pressure 79/46 82/54 Blood Pressure [Left] O2 Sat by Pulse 100 99 100 Oximetry 08/08/18 08/08/18 08/08/18 16:46 17:00 17:07 Temperature 98.0 F Pulse Rate 118 H 111 H Respiratory 26 H 19 Rate Blood Pressure 82/54 97/56 Blood Pressure [Left] O2 Sat by Pulse 100 100 Oximetry 08/08/18 08/08/18 08/08/18 17:16 17:21 17:25 Temperature Pulse Rate 114 H Respiratory 15 16 Rate Blood Pressure 97/56 Blood Pressure 88/58 [Left] O2 Sat by Pulse 100 Oximetry 08/08/18 08/08/18 08/08/18 17:30 17:46 18:00 Temperature Pulse Rate 110 H 102 H 116 H Respiratory 14 23 15 Rate Blood Pressure 97/56 97/56 107/60 Blood Pressure [Left] O2 Sat by Pulse 100 100 100 Oximetry 08/08/18 18:30 Temperature Pulse Rate 104 H Respiratory 26 H Rate Blood Pressure 103/60 Blood Pressure [Left] O2 Sat by Pulse 100 Oximetry - Reevaluation(s) Reevaluation #1: 08/08/18 19:05 Differential diagnosis, including but not limited to: Orthostasis, vagal event, structural cardiac disease, dehydration, pulmonary embolism, complication of intra-abdominal surgery, urinary tract infection Assessment and plan: 58-year-old female tachycardic, hypotensive, likely secondary to volume depletion, the systemic inflammatory response syndrome, 2 tachycardia, hypotension, and tachypnea. Patient maintained on systemic anticoagulation. Her blood pressures improved after aggressive IV fluids. We will treat her pain, d-dimer elevated, CT scan of the chest, abdomen, pelvis ordered. This and ordered empirically given systemic inflammatory response syndrome. Reevaluation #2: 08/08/18 19:26 Care will be transferred to the oncoming ER physician, Dr. Jose Lu, to follow up on CT scan of the chest, abdomen, pelvis, and admit once initial diagnostics have resulted. ED Medical Decision Making - Lab Data Result diagrams: 08/08/18 17:20 08/08/18 17:20 Critical care attestation.: If time is entered above; I have spent that time in minutes in the direct care of this critically ill patient, excluding procedure time. ED Disposition Clinical Impression: SIRS (systemic inflammatory response syndrome), Hypokalemia, Hypomagnesemia Disposition: DC-09 OP ADMIT IP TO THIS HOSP Is pt being admited?: Yes Does the pt Need Aspirin: No Condition: Fair Referrals: DIDIER MCCRARY MD [Primary Care Provider] - 3-5 Days
[2018-08-08 17:47] LABS: Hematocrit 31.6 % (30.3-42.9); Hemoglobin 10.4 gm/dl (10.1-14.3); INR 2.05 (0.87-1.13); Mean Corpuscular HGB Conc 33 % (30-34); Mean Corpuscular Volume 88 fl (79-97); Platelet Count 621 K/mm3 (140-440); Red Blood Count 3.59 M/mm3 (3.65-5.03); Red Cell Distribution Width 16.5 % (13.2-15.2)
[2018-08-08 17:56] LABS: Calcium 8.9 mg/dL (8.4-10.2)
[2018-08-08 18:02] LABS: Partial Thromboplastin Time 35.6 Sec. (24.2-36.6)
--- NOTE | 2018-08-08 18:10 | XRay Report ---
CHEST 1 VIEW 5:27 PM INDICATION / CLINICAL INFORMATION: Possible sepsis. COMPARISON: None available. FINDINGS: SUPPORT DEVICES: None. HEART / MEDIASTINUM: The heart size and pulmonary vasculature are normal. LUNGS / PLEURA: No significant pulmonary or pleural abnormality. There is a right nipple shadow. I se e no evidence of pneumothorax. ADDITIONAL FINDINGS: No significant additional findings. IMPRESSION: No acute findings. There is no evidence of pneumonia. Signer Name: Charles Huerta MD Signed: 08/08/2018 5:05 PM Workstation Name: [id number]
[2018-08-08] MEDS ORDERED: MAGNESIUM SULFATE 2GM/50ML 2 GM/50 ML BAG IV ONE (18:59)
[2018-08-08] MEDS ORDERED: ZOSYN/NS 4.5GM/100ML 4.5 GM/100 ML VIAL IV ONE (18:59)
[2018-08-08] MEDS ORDERED: MAG-OX PO STA (19:03)
[2018-08-08 19:21] LABS: Basophils % (Manual) 0 % (0.0-1.8); Eosinophils % (Manual) 0 % (0.0-4.3); Myelocytes # (Manual) 0.2 K/mm3; Platelet Estimate Consistent w Auto; Total Cells Counted 100
[2018-08-08 19:22] LABS: Anisocytosis 1+
[2018-08-08] MEDS: KCL 10MEQ/100ML 10 MEQ/100 ML BAG IV SCH ×3 (20:35→22:35)
--- NOTE | 2018-08-08 20:49 | Cat Scan Report ---
CTA CHEST WITH IV CONTRAST INDICATION: Tachycardia, lightheaded, near syncope. TECHNIQUE: Axial CT images were obtained through the chest after injection of 100 cc of IV Omnipaque 350 IV cont rast. 3 plane MIP reconstructions were produced. All CT scans at this location are performed using CT dose reduction for ALARA by means of automated exposure control. COMPARISON: Chest CT on 07/03/2018. FINDINGS: Pulmonary Arteries: No pulmonary emboli. Lungs: No significant abnormality. Trachea and Bronchi: No significant abnormality. Heart and Pericardium: No significant abnormality. Vasculature: Atherosclerotic but not aneurysmal thoracic aorta. Lymphatics: No lymphadenopathy. Additional Findings: Stable 1.7 cm right thyroid nodule. Upper Abdomen: No acute findings. Skeletal Structures: Mild diffuse thoracic spondylosis. IMPRESSION: 1. No CT evidence for pulmonary embolism. 2. No acute findings. 3. Stable 1.7 cm right thyroid nodule. This can be further evaluated with nonemergent thyroid ultraso und if not or a done at another institution. Signer Name: Jimmy Nieto MD Signed: 08/08/2018 7:45 PM Workstation Name: [id number]
--- NOTE | 2018-08-08 21:27 | Cat Scan Report ---
CT angio abdomen pelvis INDICATION: Abdominal pain, tachycardia, lightheaded.. TECHNIQUE: CTA abdomen and pelvis with IV contrast. 3 plane 3-D MIP reconstructions performed All CT scans at is location are performed using CT dose reduction for ALARA by means of automated exposure control. COMPARISON: Similar study dated 07/04/2018. FINDINGS: Vascular findings: There is unchanged irregular mixed plaque in the lower abdominal aorta resulting in approximately 70% stenosis by my measurement by criteria are similar to an aspirate. There is no focal occlusion in e aorta or iliac vessels. There is no aneurysm. The SMA, celiac artery, and KAYLYN appear widely patent. Bilateral renal arteries appear patent. 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 The portal vein and splenic ve in appear to be patent on this arterial study. There is a small amount free fluid in the abdomen and pelvis which is actually slightly decreased fro m the prior study. There is abnormal appearance of multiple loops of small bowel in the mid lower abd omen with abnormal fold thickening and hyperenhancement most likely reflective of venous congestion. Postsurgical changes from right lower quadrant partial bowel resection and left lower quadrant ostomy creation are noted. There is no free air. There is no appreciable pneumatosis or portal venous gas. The gallbladder is surgically absent. The solid parenchymal organs demonstrate no acute findings. The re is stable enlargement hyperenhancement of both adrenal glands most likely secondary to acute stres sor. IMPRESSION: 1. 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 2. Abnormal fold thickening and hyperenhancement of multiple loops of small bowel in the mid lower ab domen most likely due to venous congestion from the partial absent the thrombus. No free air or bowel obstruction identified. 3. No appreciable large vessel arterial occlusion. Signer Name: Jimmy Nieto MD Signed: 08/08/2018 8:22 PM Workstation Name: [id number]
[2018-08-08 21:42] LABS: Bacteria,Urine 1+ /HPF (Negative); Bilirubin,Urine NEG (Negative); Blood,Urine SM (Negative); Color,Urine Yellow (Yellow); Mucus,Urine FEW /HPF; Urobilinogen,Urine < 2.0 mg/dL (<2.0)
[2018-08-08] MEDS ORDERED: ZOFRAN IV PRN ×2 (23:18)
[2018-08-08] MEDS ORDERED: SODIUM CHLORIDE FLUSH SYRINGE 10 ML IV PRN ×2 (23:18)
[2018-08-08] MEDS ORDERED: TYLENOL PO PRN ×2 (23:18)
[2018-08-08] MEDS ORDERED: SODIUM CHLORIDE FLUSH SYRINGE 10 ML IV SCH (23:45)
[2018-08-08] MEDS ORDERED: D5NS 1,000 ML IV SCH (23:45)
[2018-08-08] MEDS: LOPRESSOR PO SCH (23:56)
[2018-08-09] MEDS: KCL 10MEQ/100ML 10 MEQ/100 ML BAG IV SCH (00:03)
[2018-08-09] MEDS ORDERED: KCL 10MEQ/100ML 10 MEQ/100 ML BAG IV ONE (00:07)
[2018-08-09] MEDS: DILAUDID IV PRN ×2 (00:58→09:09)
[2018-08-09 03:49] LABS: Basophils # (Auto) 0.1 K/mm3 (0.0-0.1); Basophils % (Auto) 0.6 % (0.0-1.8); Eosinophils # (Auto) 0.1 K/mm3 (0.0-0.4); Eosinophils % (Auto) 0.8 % (0.0-4.3); Hematocrit 28.5 % (30.3-42.9); Hemoglobin 9.8 gm/dl (10.1-14.3); Lymphocytes # (Auto) 1.8 K/mm3 (1.2-5.4); Lymphocytes % (Auto) 11.9 % (13.4-35.0); Mean Corpuscular HGB Conc 34 % (30-34); Mean Corpuscular Volume 85 fl (79-97); Monocytes # (Auto) 0.9 K/mm3 (0.0-0.8); Monocytes % (Auto) 6.4 % (0.0-7.3); Platelet Count 597 K/mm3 (140-440); Red Blood Count 3.34 M/mm3 (3.65-5.03); Red Cell Distribution Width 15.8 % (13.2-15.2)
[2018-08-09 04:35] LABS: Alanine Aminotransferase 71 units/L (7-56); Albumin 2.8 g/dL (3.9-5); BUN/Creatinine Ratio 46; Blood Urea Nitrogen 32 mg/dL (7-17); Calcium 8.7 mg/dL (8.4-10.2); Hemolysis Index 2
--- NOTE | 2018-08-09 05:12 | Event Note ---
Date: 08/08/18 See H/p in reports SIRS Hypotension Hypokalemia
--- NOTE | 2018-08-09 05:49 | History and Physical Report ---
CHIEF COMPLAINT: Dizziness and shortness of breath. HISTORY OF PRESENT ILLNESS: A 58-year-old female with very complicated history, sent from [facility], which is a [facility] for shortness of breath and dizziness. Her blood pressure was 75/48 in the [facility]. The patient has been feeling dehydrated. The patient had multiple abdominal surgeries recently and was discharged around 07/24/2018 after having colostomy. The patient had acute mesenteric ischemia, proximal cecum ganglion, small bowel gangrene. The patient had multiple surgeries and abdominal reexploration and washout. Cholecystectomy. Exploratory laparotomy. Small bowel resection with primary anastomosis. Right hemicolectomy and ileocolonic anastomosis. Post discharge, the patient has been doing well, but not eating or drinking fluids. No fever or chills. Shortness of breath present. PAST MEDICAL HISTORY: As mentioned acute mesenteric ischemia followed by small bowel resection and colostomy. COPD. Nicotine dependence. Sepsis. PAST SURGICAL HISTORY: Multiple surgeries. Small bowel gangrene followed by small bowel resection, right hemicolectomy, ileocolonic anastomosis, and presently colostomy. SOCIAL HISTORY: Used to be a smoker. Unknown whether she smokes currently. FAMILY HISTORY: Hypertension. REVIEW OF SYSTEMS: Significant for feeling very weak and dizzy and shortness of breath. No fever or chills. No abdominal pain. A 14-point review of systems done. Otherwise, negative. PHYSICAL EXAMINATION: GENERAL: Middle-aged female, looks older than her age. VITAL SIGNS: Initial blood pressure was 79/46 with IV fluids came up to 97/56, heart rate was 132, temperature 97.9, respiratory rate is 21. HEENT: Dry mucous membranes. Pupils equal and reactive. NECK: Supple, no lymphadenopathy, no thyromegaly. LUNGS: Scattered rhonchi present. CARDIOVASCULAR: S1, S2 heard. No gallop, no murmur, no rub. Apical impulse in left fifth intercostal space and midclavicular line. ABDOMEN: Soft, colostomy bag present. Bowel sounds are present. CENTRAL NERVOUS SYSTEM: Alert and oriented x 4, nonfocal exam. SKIN: Normal. Has sacral decubitus ulcers. LABORATORY DATA: Significant for white count of 16,900, H and H is 10.4 and 31.6, platelet count is 621,000. Potassium is 3.1, BUN and creatinine is 43 and 1.1. Lactic acid is 3.0, alkaline phosphatase is 402, ALT is 81, AST normal at 40, total protein is 5.8, albumin is 3.0. Urine specific gravity is 1.039. Urine WBC is 8.0. Chest x-ray, no acute findings. CT abdomen was stable partial thrombosis of the superior mesenteric vein. Abnormal fold thickening and hyperenhancement of multiple loops of small bowel in the mid lower abdomen, most likely due to venous congestion from the partial thrombus. No free air or bowel obstruction identified. No appreciable large vessel arterial occlusion. CT chest, no CT evidence of pulmonary embolism, no acute findings, stable 1.7 cm right thyroid nodule which can be further evaluated with nonemergent thyroid ultrasound. ASSESSMENT AND PLAN: 1.Systemic inflammatory response syndrome. The patient has a high white count and high lactic acid with hypotension, possible sepsis. Broad-spectrum antibiotics, IV Zosyn and vancomycin started. Surgical consult requested. 2.Superior Mesenteric vein thrombosis--Partial stable. Continue anticoagulation.INR Therapeutic 3.Chronic obstructive pulmonary disease. Continue DuoNebs. 4.Hypokalemia. IV potassium supplemented. 5.Severe malnutrition. Dietitian consult requested. 6.Nicotine dependence. Nicoderm patch initiated. 7.Anticoagulation. Continue Coumadin. Monitor INR. 8.Severe dehydration---Continue IV fluids. 9.Deep venous thrombosis prophylaxis. The patient on Coumadin.INR Therapeutic. Also, GI prophylaxis started. 10.Sacral decubitus ulcers. Wound consult for sacral decubitus ulcer. 11.UTI --On Zosyn for SIRS/Sepsis.Check urine cultures In summary, the patient has systemic inflammatory response syndrome, bordering on sepsis, hypotension, chronic obstructive pulmonary disease, hypokalemia, malnutrition and UTI JOB# [id number] SOPHIA/ROSIE MCDONNELL
[2018-08-09] MEDS ORDERED: VANCOMYCIN PHARMACY TO DOSE IV SCH (06:00)
[2018-08-09] MEDS: ZOSYN/NS 4.5GM/100ML 4.5 GM/100 ML VIAL IV SCH ×2 (06:39→14:04)
[2018-08-09] MEDS ORDERED: VANCOMYCIN 750 MG in NACL 0.9% 250ML 250 ML IV ONE (08:00)
[2018-08-09] MEDS: LOPRESSOR PO SCH (09:10)
--- NOTE | 2018-08-09 09:28 | Consultation ---
History of Present Illness Consult date: 08/09/18 Requesting physician: GALA BARROS Chief complaint: dizziness - History of present illness History of present illness: 58yo F who is well known to our service as she was recently admitted with an intestinal perforation and had multiple surgeries. She was recently discharged. She reports that she had a hard time taking 8-10 bottles of water a day. She did not realize she could take in other forms of hydration. Yesterday she began to feel lightheaded and dizzy. She was found to have a low blood pressure at the [facility] and sent to the emergency room. After being hydrated overnight, she is feeling much better. She has been ambulating to the bathroom without any difficulty. Never had any abdominal pain, nausea, vomiting. Her ostomy has been working well. She would like something to eat. Past History Past Medical History: other (reviewed) Past Surgical History: Other (reviewed) Social history: denies: smoking, alcohol abuse Family history: no significant family history Medications and Allergies Allergies Allergy/AdvReac Type Severity Reaction Status Date / Time No Known Allergies Allergy Unverified 06/24/18 10:41 Home Medications Medication Instructions Recorded Confirmed Last Taken Type Metoprolol [Lopressor TAB] 12.5 mg PO BID #30 tablet 07/24/18 08/08/18 08/08/18 Rx Warfarin [Coumadin] 1 mg PO DAILY@1700 #30 tablet 07/24/18 08/08/18 Unknown Rx Acetaminophen [Tylenol] 1,000 mg PO DAILY PRN 08/08/18 08/08/18 Unknown History Loperamide [Imodium] 2 mg PO BID 08/08/18 08/08/18 08/08/18 History Active Meds: Active Medications Acetaminophen (Tylenol) 650 mg PO Q4H PRN PRN Reason: Pain MILD(1-3)/Fever >100.5/LINK Hydromorphone HCl (Dilaudid) 0.25 mg IV Q3H PRN PRN Reason: Pain, Moderate (4-6) Last Admin: 08/09/18 09:09 Dose: 0.25 mg Documented by: Dextrose/Sodium Chloride (D5ns) 1,000 mls @ 100 mls/hr IV DIRECT MAURICIO Last Admin: 08/09/18 00:58 Dose: 100 mls/hr Documented by: Piperacillin Sod/Tazobactam Sod (Zosyn/Ns 4.5gm/100ml) 4.5 gm in 100 mls @ 200 mls/hr IV Q8HR [facility]; Protocol Last Admin: 08/09/18 06:39 Dose: 200 mls/hr Documented by: Vancomycin HCl 750 mg/ Sodium (Chloride) 265 mls @ 166.667 mls/hr IV ONCE ONE Stop: 08/09/18 09:35 Vancomycin HCl (Vancomycin/Ns 500 Mg/100 Ml) 500 mg in 100 mls @ 100 mls/hr IV Q12H [facility] Metoprolol Tartrate (Lopressor) 12.5 mg PO BID [facility] Last Admin: 08/09/18 09:10 Dose: 12.5 mg Documented by: Nicotine (Habitrol) 14 mg TD QDAY [facility] Last Admin: 08/09/18 09:10 Dose: 14 mg Documented by: Ondansetron HCl (Zofran) 4 mg IV Q8H PRN PRN Reason: Nausea And Vomiting Sodium Chloride (Sodium Chloride Flush Syringe 10 Ml) 10 ml IV PRN PRN PRN Reason: LINE FLUSH Sodium Chloride (Sodium Chloride Flush Syringe 10 Ml) 10 ml IV BID [facility] Warfarin Sodium (Coumadin) 1 mg PO DAILY@1700 MAURICIO; Protocol Review of Systems - Constitutional fatigue, weakness, no fever, no chills, no chronic pain - Cardiovascular no chest pain, no shortness of breath - Respiratory no cough - Gastrointestinal no abdominal pain, no nausea, no vomiting, no change in bowel habits - Neurological vertigo Exam Vital Signs Pulse Resp Pulse Ox 132 H 21 100 08/08/18 16:16 08/08/18 16:16 08/08/18 16:16 - General physical appearance Positive: no distress, no pain, other (looks well) - Eyes Positive: normal occular movement - Respiratory Positive: normal expansion, normal respiratory effort, clear to auscultation - Cardiovascular Rhythm: regular - Abdomen Abdomen: Present: soft, distended (mild), surgical scars (well healed), other (ostomy pink and functioning). Absent: tender, guarding, rigid, wound - Integumentary no rash, no growths, no abnormal pigmentation - Neurologic Neurologic: alert and oriented to time, place and person - Psychiatric Psychiatric: appropriate mood/affect, intact judgment & insight, cooperative Results - Labs 08/09/18 03:33 08/09/18 03:33 Abnormal lab results 08/08/18 08/08/18 08/08/18 Range/Units 17:20 17:20 17:20 WBC 16.9 H (4.5-11.0) K/mm3 RBC 3.59 L (3.65-5.03) M/mm3 Hgb (10.1-14.3) gm/dl Hct (30.3-42.9) % RDW 16.5 H (13.2-15.2) % Plt Count 621 H (140-440) K/mm3 Lymph % (Auto) (13.4-35.0) % [place] # (0.0-0.8) K/mm3 Seg Neutrophils % (40.0-70.0) % Seg Neuts % (Manual) 86.0 H (40.0-70.0) % Lymphocytes % (Manual) 9.0 L (13.4-35.0) % Seg Neutrophils # (1.8-7.7) K/mm3 Seg Neutrophils # Man 14.5 H (1.8-7.7) K/mm3 PT 22.7 H (12.2-14.9) Sec. INR 2.05 H (0.87-1.13) D-Dimer 758.21 H (0-234) ng/mlDDU Sodium 132 L (137-145) mmol/L Potassium 3.1 L (3.6-5.0) mmol/L Chloride 91.2 L (98-107) mmol/L BUN 43 H (7-17) mg/dL Glucose 108 H (65-100) mg/dL Lactic Acid (0.7-2.0) mmol/L Magnesium (1.7-2.3) mg/dL ALT 81 H (7-56) units/L Alkaline Phosphatase 402 H (35-129) units/L Total Protein 5.8 L (6.3-8.2) g/dL Albumin 3.0 L (3.9-5) g/dL Ur Specific [place] (1.003-1.030) Urine WBC (Auto) (0.0-6.0) /HPF 08/08/18 08/08/18 08/08/18 Range/Units 17:20 17:20 21:32 WBC (4.5-11.0) K/mm3 RBC (3.65-5.03) M/mm3 Hgb (10.1-14.3) gm/dl Hct (30.3-42.9) % RDW (13.2-15.2) % Plt Count (140-440) K/mm3 Lymph % (Auto) (13.4-35.0) % [place] # (0.0-0.8) K/mm3 Seg Neutrophils % (40.0-70.0) % Seg Neuts % (Manual) (40.0-70.0) % Lymphocytes % (Manual) (13.4-35.0) % Seg Neutrophils # (1.8-7.7) K/mm3 Seg Neutrophils # Man (1.8-7.7) K/mm3 PT (12.2-14.9) Sec. INR (0.87-1.13) D-Dimer (0-234) ng/mlDDU Sodium (137-145) mmol/L Potassium (3.6-5.0) mmol/L Chloride (98-107) mmol/L BUN (7-17) mg/dL Glucose (65-100) mg/dL Lactic Acid 3.00 H* (0.7-2.0) mmol/L Magnesium 1.60 L (1.7-2.3) mg/dL ALT (7-56) units/L Alkaline Phosphatase (35-129) units/L Total Protein (6.3-8.2) g/dL Albumin (3.9-5) g/dL Ur Specific [place] 1.039 H (1.003-1.030) Urine WBC (Auto) 8.0 H (0.0-6.0) /HPF 08/09/18 08/09/18 Range/Units 03:33 03:33 WBC 14.7 H (4.5-11.0) K/mm3 RBC 3.34 L (3.65-5.03) M/mm3 Hgb 9.8 L (10.1-14.3) gm/dl Hct 28.5 L (30.3-42.9) % RDW 15.8 H (13.2-15.2) % Plt Count 597 H (140-440) K/mm3 Lymph % (Auto) 11.9 L (13.4-35.0) % [place] # 0.9 H (0.0-0.8) K/mm3 Seg Neutrophils % 80.3 H (40.0-70.0) % Seg Neuts % (Manual) (40.0-70.0) % Lymphocytes % (Manual) (13.4-35.0) % Seg Neutrophils # 11.8 H (1.8-7.7) K/mm3 Seg Neutrophils # Man (1.8-7.7) K/mm3 PT (12.2-14.9) Sec. INR (0.87-1.13) D-Dimer (0-234) ng/mlDDU Sodium 133 L (137-145) mmol/L Potassium (3.6-5.0) mmol/L Chloride 95.9 L (98-107) mmol/L BUN 32 H (7-17) mg/dL Glucose (65-100) mg/dL Lactic Acid (0.7-2.0) mmol/L Magnesium (1.7-2.3) mg/dL ALT 71 H (7-56) units/L Alkaline Phosphatase 357 H (35-129) units/L Total Protein 5.5 L (6.3-8.2) g/dL Albumin 2.8 L (3.9-5) g/dL Ur Specific [place] (1.003-1.030) Urine WBC (Auto) (0.0-6.0) /HPF Diabetes panel 08/08/18 08/09/18 08/09/18 Range/Units 17:20 01:35 03:33 Sodium 132 L 133 L (137-145) mmol/L Potassium 3.1 L 4.1 D (3.6-5.0) mmol/L Chloride 91.2 L 95.9 L (98-107) mmol/L Carbon Dioxide 23 24 (22-30) mmol/L BUN 43 H 32 H (7-17) mg/dL Creatinine 1.1 0.7 (0.7-1.2) mg/dL Glucose 108 H 79 (65-100) mg/dL Hemoglobin A1c 5.4 (4-6) % Calcium 8.9 8.7 (8.4-10.2) mg/dL AST 40 33 (5-40) units/L ALT 81 H 71 H (7-56) units/L Alkaline Phosphatase 402 H 357 H (35-129) units/L Total Protein 5.8 L 5.5 L (6.3-8.2) g/dL Albumin 3.0 L 2.8 L (3.9-5) g/dL Calcium panel 08/08/18 08/09/18 Range/Units 17:20 03:33 Calcium 8.9 8.7 (8.4-10.2) mg/dL Albumin 3.0 L 2.8 L (3.9-5) g/dL Pituitary panel 08/08/18 08/09/18 Range/Units 17:20 03:33 Sodium 132 L 133 L (137-145) mmol/L Potassium 3.1 L 4.1 D (3.6-5.0) mmol/L Chloride 91.2 L 95.9 L (98-107) mmol/L Carbon Dioxide 23 24 (22-30) mmol/L BUN 43 H 32 H (7-17) mg/dL Creatinine 1.1 0.7 (0.7-1.2) mg/dL Glucose 108 H 79 (65-100) mg/dL Calcium 8.9 8.7 (8.4-10.2) mg/dL Adrenal panel 08/08/18 08/09/18 Range/Units 17:20 03:33 Sodium 132 L 133 L (137-145) mmol/L Potassium 3.1 L 4.1 D (3.6-5.0) mmol/L Chloride 91.2 L 95.9 L (98-107) mmol/L Carbon Dioxide 23 24 (22-30) mmol/L BUN 43 H 32 H (7-17) mg/dL Creatinine 1.1 0.7 (0.7-1.2) mg/dL Glucose 108 H 79 (65-100) mg/dL Calcium 8.9 8.7 (8.4-10.2) mg/dL Total Bilirubin 0.20 0.30 (0.1-1.2) mg/dL AST 40 33 (5-40) units/L ALT 81 H 71 H (7-56) units/L Alkaline Phosphatase 402 H 357 H (35-129) units/L Total Protein 5.8 L 5.5 L (6.3-8.2) g/dL Albumin 3.0 L 2.8 L (3.9-5) g/dL - Imaging CT scan - abdomen: report reviewed, image reviewed CT scan - pelvis: report reviewed, image reviewed Assessment and Plan - Patient Problems (1) SIRS (systemic inflammatory response syndrome) Current Visit: Yes Status: Acute Plan to address problem: Pt stable. I think she was simply dehydrated. If she tolerates a diet and ambulates without any symptoms, she may be discharged from my standpoint. Rec: 1) Regular diet 2) Ambulate 3) fluid bolus. 4) F/U with Dr. Wilcox in the office if new issues develop please call with questions. Time=30min
[2018-08-09] MEDS: NACL 0.9% 1000 ML 1,000 ML IV SCH ×2 (09:56→15:16)
[2018-08-09] MEDS ORDERED: SODIUM CHLORIDE FLUSH SYRINGE 10 ML IV SCH (10:00)
[2018-08-09] MEDS ORDERED: HABITROL TD SCH (10:00)
[2018-08-09] MEDS ORDERED: VANCOMYCIN/NS 1 GM/250 ML 1 GM/250 ML BAG IV ONE (10:30)
[2018-08-09 11:21] LABS: INR 2.98 (0.87-1.13)
--- NOTE | 2018-08-09 12:20 | Discharge Summary ---
Providers - Providers Date of Admission: 08/08/18 22:35 Date of discharge: 08/09/18 Attending physician: CHITRA WASHINGTON 08/09/18 00:00 Consult to Wound/ET Nurse [CONS] Routine Reason For Exam: wound eval 08/09/18 05:34 Consult to Dietitian/Nutrition [CONS] Routine Physician Instructions: Reason For Exam: Reason for Consult: Nutrition Recommendations Reason for Consult: Malnutrition 08/09/18 05:41 Consult to Physician [CONS] Routine Comment: Consulting Provider: JIMMY DE LUNA Physician Instructions: Reason For Exam: S/p Multiple abd surgeries 08/09/18 05:47 Physical Therapy Evaluation and Treat [CONS] Routine Comment: Reason For Exam: debility [facility] Condition: Fair Hospital course: Patient is 58 yo with recent bowel ischemia from mesenteric thrombosis, s/p multiple surgeries, sepsis. She went to [facility] for follow up. She complained of generalized weakness, fatigue, lightheadedness, and was found to be tachycardic and hypotensive therefore sent to ED for evaluation. Initial BP in ED was 79/46. She was given iv fluids, empiric antibiotics and admitted. Patient was evaluated by Surgeon. She felt better on iv fluids, weakness resolved, BP improved. Final diagnosis is dehydration and was discharged home after discussion with surgeon. She was asked to continue Coumadin. Disposition: DC- TO HOME OR SELFCARE - Discharge Diagnoses (1) Dehydration Status: Acute (2) Severe malnutrition Status: Acute (3) Hypokalemia Status: Acute (4) Hypomagnesemia Status: Acute (5) Leukocytosis Status: Acute (6) SIRS (systemic inflammatory response syndrome) Status: Acute Core Measure Documentation - Palliative Care Palliative Care/ Comfort Measures: Not Applicable - Core Measures Any of the following diagnoses?: none Exam - Constitutional Vitals: Temp Pulse Resp BP Pulse Ox 97.8 F 90 18 105/65 100 08/09/18 05:43 08/09/18 09:10 08/09/18 09:39 08/09/18 09:10 08/09/18 05:43 Plan Activity: no restrictions Diet: other (mechanical soft diet) Additional Instructions: 1.Follow up with [facility] at [facility] in 1 week. 2.Follow up with Dr. Wilcox in 1 week. 3.Check INR on Tuesday08/14/18 at [facility]. Follow up with: DIDIER MCCRARY MD [Primary Care Provider] - 3-5 Days Forms: Warfarin Discharge Instruction Prescriptions: cefUROXime [Ceftin] 500 mg PO Q12H 5 Days #10 tablet Warfarin [Coumadin] 1 mg PO DAILY@1700 #30 tablet Metoprolol [Lopressor TAB] 12.5 mg PO BID #30 tablet
[2018-08-09] MEDS ORDERED: COUMADIN PO SCH (17:00)
[2018-08-09 17:16] VITALS: BP 93/58
[2018-08-09] MEDS ORDERED: VANCOMYCIN/NS 500 MG/100 ML 500 MG/100 ML BAG IV SCH (20:00)
[2018-08-10] MEDS ORDERED: VANCOMYCIN/NS 500 MG/100 ML 500 MG/100 ML BAG IV SCH
== END 2018-08-09 18:35 | disposition home or self-care (01) | DRG 640 ==
LOC: ED 16:05 → 3A 22:35
PROVIDERS: ADMIT Internal Medicine; ATTEND Internal Medicine
DX: E86.0 Dehydration (principal); I81 Portal vein thrombosis; E43 Unspecified severe protein-calorie malnutrition; R65.10 Systemic inflammatory response syndrome (SIRS) of non-infectious origin without acute organ dysfunction; N39.0 Urinary tract infection, site not specified; J44.9 Chronic obstructive pulmonary disease, unspecified; F17.200 Nicotine dependence, unspecified, uncomplicated; L89.159 Pressure ulcer of sacral region, unspecified stage; E83.42 Hypomagnesemia; E87.6 Hypokalemia; Z90.49 Acquired absence of other specified parts of digestive tract; Z82.49 Family history of ischemic heart disease and other diseases of the circulatory system; Z79.51 Long term (current) use of inhaled steroids; Z79.899 Other long term (current) drug therapy; Z79.01 Long term (current) use of anticoagulants; Z93.3 Colostomy status
CPT/HCPCS: 36415; 71045; 71275; 74174; 80053; 81001; 82140; 82550; 82805; 83036; 83735; 85007; 85025; 85379; 85610; 85730; 87040; 87086; 93005; 93010; G0378; J1170; J2543; J3010; J3370; J3475; J3480; J7030; J7042; J7050; Q9967